=== PATIENT | male | born 1960 | race Caucasian/White ===

== ENCOUNTER 2020-01-28 16:04 | Emergency (ER) | payer MEDICAID, SELFPAY ==
[2020-01-28 16:23] VITALS: BP 114/72; BP 120/88; PULSE 109; PULSE 130; RESP 23; TEMP 36.9; O2SAT 93; O2SAT 97; BMI 25.4
--- NOTE | 2020-01-28 16:37 | ED.AMS ---
HPI - Altered Mental Status General Chief Complaint: Overdose Stated Complaint: od Time Seen by Provider: 01/28/20 16:32 Source: patient and EMS Mode of arrival: EMS Limitations: altered mental status History of Present Illness HPI narrative: Patient's history of substance abuse uses heroin and cocaine was found on the side of the road with empty bottles Suboxone pinpoint pupil easily arousable with blue lips no Narcan was given was saturating 97% on 2 L POC was 153 respiratory rate was 14 to 16 heart rate was 130s after arrival in the ER patient was anxious moving his body is all over Related Data Allergies Allergy/AdvReac Type Severity Reaction Status Date / Time No Known Allergies Allergy Mild NO REACTION Unverified 11/01/19 16:50 Review of Systems Review of Systems: Yes Unobtainable due to mental status PMFSH Social History Social History Advance Directives: No Advance Directives Information Provided: No Physical Exam Vital Signs: Vital Signs: Last Vital Signs Temp 98 F 01/29/20 00:02 Pulse 94 01/29/20 00:02 Resp 18 01/29/20 00:02 BP 119/85 01/29/20 00:02 Pulse Ox 97 01/29/20 00:02 Body Mass Index 25.4 Appearance: Alert. Anxious moving his body all over No acute distress. Eyes: Pupils equal, round and reactive to light. ENT: Pharynx normal. Pupils 2 mm reacting to light no signs of head injury Neck: Normal inspection. Neck supple. CVS: Normal heart rate and rhythm. Pulses normal. Respiratory: No respiratory distress. Breath sounds normal. Abdomen: Soft and nontender. Skin: Skin warm and dry. Normal skin color. Normal skin turgor. Extremities: No lower extremity edema. Good range of movement Neuro: Alert, No motor deficit. No sensory deficit. MDM - Altered Mental Status MDM Narrative Medical decision making narrative: Patient's history of cocaine abuse came agitated also taking Suboxone improved after Ativan IM at this time patient is alert awake resting with stable vitals denied any chest pain denies any other substance abuse will check the urine keep him till am Differential Diagnosis Differential diagnosis: Likely overdose polysubstance Discharge Plan Discharge Clinical Impression: Cocaine intoxication Qualifiers: Complication of substance-induced condition: uncomplicated Qualified Code(s): F14.920 - Cocaine use, unspecified with intoxication, uncomplicated Patient Disposition: Home, Self-Care Instructions: Cocaine Abuse (ED) Additional Instructions: Stop using cocaine and follow up with detox
[2020-01-28] MEDS: LORazepam 2 MG/ML VIAL IM ×2 (16:46→21:01)
[2020-01-28] MEDS: diphenhydrAMINE HCL 50 MG/ML VIAL IM (17:49)
--- NOTE | 2020-01-28 18:51 | PC.NURSE ---
benadryl never given. patient asleep.
--- NOTE | 2020-01-28 19:39 | PC.NURSE ---
GAVE PATIENT A SANDWICH AND ORANGE JUICE.
[2020-01-29 00:02] VITALS: BP 119/85; PULSE 94; RESP 18; TEMP 36.6; O2SAT 97
[2020-01-29 02:55] LABS: Amphetamine Screen Urine Not Detected (Not Detect); Barbiturates, Urine Not Detected (Not Detect); Benzodiazepines Screen Urine Not Detected (Not Detect); Cannabinoid Screen Urine Not Detected (Not Detect); Cocaine Screen Urine POSITIVE (Not Detect); Opiate Screen Urine POSITIVE (Not Detect); Phencyclidine Screen Urine Not Detected (Not Detect)
== END 2020-01-29 03:19 | disposition home or self-care (01) ==
PROVIDERS: Emergency Provider Internal Medicine
DX: F14.120 Cocaine abuse with intoxication, uncomplicated (principal); F11.20 Opioid dependence, uncomplicated; Z21 Asymptomatic human immunodeficiency virus [HIV] infection status
CPT/HCPCS: 80307; 96372; 99284; J1200; J2060

== ENCOUNTER 2020-01-29 08:35 | Emergency (ER) | payer MEDICAID, SELFPAY ==
--- NOTE | 2020-01-29 08:48 | ECG_ITS ---
Test Reason : ETOH Blood Pressure : / mmHG Vent. Rate : 087 BPM Atrial Rate : 087 BPM P-R Int : 198 ms QRS Dur : 096 ms QT Int : 386 ms P-R-T Axes : 054 072 050 degrees QTc Int : 464 ms Normal sinus rhythm Normal ECG When compared with ECG of 14-SEP-2019 09:09, No significant change was found Referred By: Anitha Pringle Electronically Signed By:Sudheer Lyon
[2020-01-29 08:51] VITALS: BP 125/52; PULSE 84; PULSE 94; RESP 22; TEMP 36.4; O2SAT 93; O2SAT 94; BMI 24.1
[2020-01-29] MEDS: LORazepam 2 MG/ML VIAL IM (08:57)
[2020-01-29 09:18] LABS: MANUAL DIFF FLAG NO
[2020-01-29 09:30] LABS: Basophils Percent Auto 0.4 % (0-2); Eosinophils Absolute Auto 0.1 X10*3/uL (0.0-0.4); Eosinophils Percent Auto 0.5 % (0-4); Hematocrit 43.5 % (42-52); Hemoglobin 14.9 g/dl (14.0-18.0); Imm Gran Abs Auto 0.04 X10*3/uL (0.00-0.03); Imm Gran Pct Auto 0.4 % (0.0-0.4); Lymphocytes Absolute Auto 0.7 X10*3/uL (1.2-4.9); Lymphocytes Percent Auto 7.1 % (20-40); Mean Corpuscular HGB Conc 34.3 g/dl (31.0-36.0); Mean Corpuscular Hemoglobin 30.8 pg (27.0-33.0); Mean Corpuscular Volume 89.9 fL (80-98); Mean Platelet Volume 12.3 fL (9.4-12.4); Monocytes Absolute Auto 1.2 X10*3/uL (0.1-1.2); Monocytes Percent Auto 12.2 % (2-11); Neutrophils Percent Auto 79.4 % (45-73); Platelet Count 126 X10*3/uL (160-400); Red Blood Count 4.84 X10*6/uL (4.60-5.80); Red Cell Distribution Width 15.7 % (11.0-16.0); White Blood Count 10.1 X10*3/uL (4.8-10.8)
[2020-01-29] MEDS: 0.9 % Sodium Chloride 1,000 ML 999 ML IVCONT ×2 (09:49→10:17)
[2020-01-29 09:50] VITALS: BP 109/60; PULSE 91; RESP 15; O2SAT 98
[2020-01-29 09:50] LABS: Ethanol < 10 mg/dL
[2020-01-29] MEDS: Haloperidol Lactate 5 MG/ML VIAL IVPUSH (09:50)
[2020-01-29 09:51] LABS: Alanine Aminotransferase 22 U/L (0-40); Albumin Level 4.3 g/dL (3.5-5.0); Alkaline Phosphatase 106 U/L (39-117); Anion Gap 16 (12-20); Aspartate Amino Transferase 55 U/L (5-37); Bilirubin Direct 0.2 mg/dL (0.0-0.5); Bilirubin Total 0.5 mg/dL (0.0-1.0); Blood Urea Nitrogen 30 mg/dL (9-16); Calcium 8.9 mg/dL (8.4-10.2); Carbon Dioxide 25 mmol/L (22-29); Chloride 102 mmol/L (96-108); Creatinine Clr Calc Pharmacy 55.1; Estimated Glomerular Filt Rate 59; Glucose Random 69 mg/dL (60-115); Magnesium 2.4 mg/dL (1.6-2.6); Potassium 4.6 mmol/l (3.3-5.1); Sodium 138 mmol/L (135-145); Total Protein 8.2 g/dL (6.5-8.0)
--- NOTE | 2020-01-29 09:55 | ED_ITS ---
HPI - Psych General Chief Complaint: ETOH/Substance Use <LOVELY Goel - Last Filed: 01/29/20 13:48> Stated Complaint: ETOH <LOVELY Goel - Last Filed: 01/29/20 13:48> Time Seen by Provider: 01/29/20 08:46 <LOVELY Goel Last Filed: 01/29/20 13:48> Source: patient and EMS <LOVELY Goel Last Filed: 01/29/20 13:48> Mode of arrival: EMS <LOVELY Goel Last Filed: 01/29/20 13:48> Limitations: other (Poor historian) <LOVELY Goel Last Filed: 01/29/20 13:48> History of Present Illness HPI Narrative: 59yoM c PMHx of HIV/AIDS, Hepatitis C, IV drug usage c cocaine/heroin/opioids currently on Suboxone, schizoaffective disorder, depression, and asthma presenting to the ED via EMS c c/o of unable to stay still after being discharged overnight. 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 Denies any fevers, dizziness, changes in vision, nausea, vomiting, chest pain, shortness of breath, cough, sore throat, abdominal pain, back pain, dysuria, hematuria, constipation or diarrhea or any other symptoms complaints or concerns at this time. <LOVELY Goel Last Filed: 01/29/20 13:48> Related Data Allergies/Adverse Reactions: Allergies Allergy/AdvReac Type Severity Reaction Status Date / Time No Known Allergies Allergy Mild NO REACTION Unverified 11/01/19 16:50 <LOVELY Goel Last Filed: 01/29/20 13:48> Review of Systems Review of Systems: Constitutional : No Fever, No Chills ENT/Mouth : No Ear Pain, No Nasal Congestion, No sore throat Eyes: No Eye Pain, No Swelling, No Redness Cardiovascular : No Chest Pain, No SOB Respiratory : No Cough, No Sputum, No Dyspnea Gastrointestinal : No ingestions, No Nausea, No Vomiting, No Diarrhea, No Hematochezia, No Melena Genitourinary : No Dysuria, No Urinary Frequency, No Hematuria Musculoskeletal : No Myalgias Skin : No Skin Lesions, No rash Neuro : No Weakness, No Numbness, No Paresthesias, No Dizziness, No Headache Psych : + Anxiety, No Depression, No SI, No No thoughts of self injury, No HI, No AVH, Heme/Lymph: No Lymphadenopathy Endocrine : No Polyuria, No Polydipsia <LOVELY Goel - Last Filed: 01/29/20 13:48> Yes all other systems are reviewed and are negative <LOVELY Goel - Last Filed: 01/29/20 13:48> [facility] Past Medical History Attestation statement: The following information was validated with the patient. <LOVELY Goel - Last Filed: 01/29/20 13:48> Social History Social History: Social History Smoking Status: Current every day smoker Use of substances other than those prescribed or required for medical reasons: Yes Substance Use Type: Crack/Cocaine, Heroin and Marijuana Advance Directives: No Advance Directives Information Provided: No <LOVELY Goel - Last Filed: 01/29/20 13:48> Physical Exam Vital Signs: Vital Signs: Last Vital Signs Temp 97.6 F 01/29/20 12:00 Pulse 89 01/29/20 12:00 Resp 15 01/29/20 12:00 BP 121/79 01/29/20 12:00 Pulse Ox 92 01/29/20 12:00 Body Mass Index 24.1 vital signs have been reviewed as normal and appeared to be correct. Blood pressure normal. Heart tachycardic. Respiration rate tachypneic. Temperature normal. Oxygen saturation normal. <LOVELY Goel - Last Filed: 01/29/20 13:48> Vital Signs: Last Vital Signs Temp 97.6 F 01/29/20 12:00 Pulse 89 01/29/20 12:00 Resp 15 01/29/20 12:00 BP 121/79 01/29/20 12:00 Pulse Ox 92 01/29/20 12:00 Body Mass Index 24.1 <Guido Robins MD - Last Filed: 02/10/20 09:14> Appearance: Alert. Oriented X3. No acute distress. Head: Normal external exam. Normocephalic. Atraumatic. No Fernandez signs noted. No raccoon eyes noted Eyes: PERRLA. EOMI. Conjunctiva and sclera normal. Eyelids normal. ENT: EAC normal. TM's Normal. Pharynx normal. Uvula midline. Moist mucous membranes. No trismus noted. No drooling noted. No muffled voice noted. Neck: Normal inspection. Neck supple. FROM. No adenopathy. No meningeal signs. CVS: Normal heart rate and rhythm. Heart sound normal. No murmurs noted. Pulses normal throughout. Respiratory: No respiratory distress. Painless inspiration. Breath sounds normal. No wheezes/rales/rhonchi noted. Chest nontender. No accessory muscle usage noted or decreased air movement noted. Abdomen: Soft and nontender. Bowel sounds normal in all 4 quadrants. No distention noted. No organomegaly noted. No visible injury noted. Back: No CVA tenderness. Full range of motion noted. Skin: Skin warm and dry. Normal skin color. Normal skin turgor. No rashes/lesions/lacerations noted. Extremities: No lower extremity edema. Extremities exhibit normal range of motion. Extremities nontender. Neuro: Oriented X 3. No motor deficit. No sensory deficit. Reflexes normal. Psych: Appearance grossly normal, well-kept, mental status normal, speech and movement normal, speech clear, patient appears very anxious and restless. Although Is cooperative. Does not have Normal thought process. Does not have Normal thought content. Does not have good insight. Judgment is poor. <LOVELY Goel - Last Filed: 01/29/20 13:48> Course Course Course Narrative: 8:50am - 59yoM c PMHx of HIV/AIDS, Hepatitis C, IV drug usage c cocaine/heroin/opioids currently on Suboxone, schizoaffective disorder, depression, and asthma presenting to the ED via EMS c c/o of unable to stay still after being discharged overnight. 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 - on exam patient is very restless and anxious otherwise in no acute distress. He is tachycardic and tachypneic although this is not sepsis this is acute withdrawal. - Plan: Labs, EKG, UA. Provide IVF's, 2 mg of ativan then re-evaluate. No BHN consult indicated at this time as patient denies any SI/HI/auditory visual hallucinations or thoughts of self-injury. And is already on Suboxone. <LOVELY Goel - Last Filed: 01/29/20 13:48> I have reviewed the chart <Guido Robins MD - Last Filed: 02/10/20 09:14> Reevaluation(s) Reevaluation #1: - platelet count 126. BUN 30. CPK 1671. Otherwise all other labs are within normal limits. Patient is positive for opioids and cocaine negative for any EtOH. Negative for RSV/flu/COVID. EKG is normal sinus rhythm no acute ischemic changes noted. - patient had to be medicated with 5 mg of Haldol and 50 mg of Benadryl due to restlessness/anxiety. Patient also given another L of IV fluids will then recheck the patient's CPK. Will continue to monitor at this time. <LOVELY Goel - Last Filed: 01/29/20 13:48> Time: 11:26 <LOVELY Goel - Last Filed: 01/29/20 13:48> Reevaluation #2: Repeat CPK trending now at this time. Patient is tolerating p.o. fluids and is eating a meal. Denies any additional complaints or concerns at this time. Is sober. Denies any SI/HI/auditory visual hallucinations thoughts of self-injury. Not interested in detox as patient is already on Suboxone. I instructed patient to not do any drugs and then take his Suboxone due to he throws himself in to withdrawal. Patient understands this and agrees with the p roxanne. Intructured him to follow up with primary care provider and to return if any new or worsening symptoms. Patient understands agrees the plan. <LOVELY Goel - Last Filed: 01/29/20 13:48> Time: 13:46 <LOVELY Goel - Last Filed: 01/29/20 13:48> MDM - Psych Restraints Face to Face Assessment: Face to Face Assessment: Current Situation: After assessment of the patient, a review of the pertinent medical record and a discussion with nursing staff, I feel the patient requires a restrain intervention. Reaction To: [] Medical Condition: [] Behavioral State: [] Continued Need: [] <LOVELY Goel - Last Filed: 01/29/20 13:48> Medical Records Attestation: I reviewed the patient's medical records. <LOVELY Goel - Last Filed: 01/29/20 13:48> Lab Data Attestation: I reviewed the patient's lab results. <LOVELY Goel - Last Filed: 01/29/20 13:48> Result diagrams: : 01/29/20 09:15 01/29/20 09:15 <LOVELY Goel - Last Filed: 01/29/20 13:48> Labs: Lab Results 01/29/20 01/29/20 01/29/20 Range/Units 09:15 09:15 09:15 WBC 10.1 (4.8-10.8) X10*3/uL RBC 4.84 (4.60-5.80) X10*6/uL Hgb 14.9 (14.0-18.0) g/dl Hct 43.5 (42-52) % MCV 89.9 (80-98) fL MCH 30.8 (27.0-33.0) pg MCHC 34.3 (31.0-36.0) g/dl RDW 15.7 (11.0-16.0) % Plt Count 126 L (160-400) X10*3/uL MPV 12.3 (9.4-12.4) fL Immature Gran % (Auto) 0.4 (0.0-0.4) % Neut % (Auto) 79.4 H (45-73) % Lymph % (Auto) 7.1 L (20-40) % [place] % (Auto) 12.2 H (2-11) % Eos % (Auto) 0.5 (0-4) % Baso % (Auto) 0.4 (0-2) % Lymph # (Auto) 0.7 L (1.2-4.9) X10*3/uL [place] # (Auto) 1.2 (0.1-1.2) X10*3/uL Eos # (Auto) 0.1 (0.0-0.4) X10*3/uL Baso # (Auto) 0.0 (0.0-0.2) X10*3/uL Abs Immat Gran (auto) 0.04 H (0.00-0.03) X10*3/uL Absolute Neuts (auto) 8.0 (2.0-8.3) X10*3/uL Absolute Nucleated RBC 0.000 (0.0-0.012) X10*3/uL Nucleated RBC % (auto) 0.0 (0.0-0.2) /100WBC Hold Purple Top SEE NOTE Sodium 138 (135-145) mmol/L Potassium 4.6 (3.3-5.1) mmol/l Chloride 102 (96-108) mmol/L Carbon Dioxide 25 (22-29) mmol/L Anion Gap 16 (12-20) BUN 30 H (9-16) mg/dL Creatinine 1.24 (0.5-1.4) mg/dL Estim Creat Clear Calc 55.1 Estimated GFR 59 Random Glucose 69 (60-115) mg/dL Calcium 8.9 (8.4-10.2) mg/dL Magnesium (1.6-2.6) mg/dL Total Bilirubin (0.0-1.0) mg/dL Direct Bilirubin (0.0-0.5) mg/dL AST (5-37) U/L ALT (0-40) U/L Alkaline Phosphatase (39-117) U/L Total Creatine Kinase (38-174) U/L Total Protein (6.5-8.0) g/dL Albumin (3.5-5.0) g/dL Urine Color Urine Appearance Urine pH (5.0-8.0) Ur Specific [place] (1.005-1.025) Urine Protein (NEG-TRACE) MG/DL Urine Glucose (UA) (NEG) MG/DL Urine Ketones (NEG) MG/DL Urine Blood (NEG) Urine Nitrite (NEG) Ur Leukocyte Esterase (NEG) Urine Opiates Screen (Not Detect) Ur Barbiturates Screen (Not Detect) Ur Phencyclidine Scrn (Not Detect) Ur Amphetamines Screen (Not Detect) U Benzodiazepines Scrn (Not Detect) Urine Cocaine Screen (Not Detect) U Marijuana (THC) Screen (Not Detect) Ethyl Alcohol mg/dL Coronavirus (PCR) (Negative) Influenza Type A (PCR) (Negative) Influenza Type B (PCR) (Negative) RSV RNA Qual (PCR) (Negative) 01/29/20 01/29/20 01/29/20 Range/Units 09:15 09:15 09:15 WBC (4.8-10.8) X10*3/uL RBC (4.60-5.80) X10*6/uL Hgb (14.0-18.0) g/dl Hct (42-52) % MCV (80-98) fL MCH (27.0-33.0) pg MCHC (31.0-36.0) g/dl RDW (11.0-16.0) % Plt Count (160-400) X10*3/uL MPV (9.4-12.4) fL Immature Gran % (Auto) (0.0-0.4) % Neut % (Auto) (45-73) % Lymph % (Auto) (20-40) % [place] % (Auto) (2-11) % Eos % (Auto) (0-4) % Baso % (Auto) (0-2) % Lymph # (Auto) (1.2-4.9) X10*3/uL [place] # (Auto) (0.1-1.2) X10*3/uL Eos # (Auto) (0.0-0.4) X10*3/uL Baso # (Auto) (0.0-0.2) X10*3/uL Abs Immat Gran (auto) (0.00-0.03) X10*3/uL Absolute Neuts (auto) (2.0-8.3) X10*3/uL Absolute Nucleated RBC (0.0-0.012) X10*3/uL Nucleated RBC % (auto) (0.0-0.2) /100WBC Hold Purple Top Sodium (135-145) mmol/L Potassium (3.3-5.1) mmol/l Chloride (96-108) mmol/L Carbon Dioxide (22-29) mmol/L Anion Gap (12-20) BUN (9-16) mg/dL Creatinine (0.5-1.4) mg/dL Estim Creat Clear Calc Estimated GFR Random Glucose (60-115) mg/dL Calcium (8.4-10.2) mg/dL Magnesium 2.4 (1.6-2.6) mg/dL Total Bilirubin 0.5 (0.0-1.0) mg/dL Direct Bilirubin 0.2 (0.0-0.5) mg/dL AST 55 H (5-37) U/L ALT 22 (0-40) U/L Alkaline Phosphatase 106 (39-117) U/L Total Creatine Kinase (38-174) U/L Total Protein 8.2 H (6.5-8.0) g/dL Albumin 4.3 (3.5-5.0) g/dL Urine Color Urine Appearance Urine pH (5.0-8.0) Ur Specific [place] (1.005-1.025) Urine Protein (NEG-TRACE) MG/DL Urine Glucose (UA) (NEG) MG/DL Urine Ketones (NEG) MG/DL Urine Blood (NEG) Urine Nitrite (NEG) Ur Leukocyte Esterase (NEG) Urine Opiates Screen (Not Detect) Ur Barbiturates Screen (Not Detect) Ur Phencyclidine Scrn (Not Detect) Ur Amphetamines Screen (Not Detect) U Benzodiazepines Scrn (Not Detect) Urine Cocaine Screen (Not Detect) U Marijuana (THC) Screen (Not Detect) Ethyl Alcohol < 10 mg/dL Coronavirus (PCR) NEGATIVE (Negative) Influenza Type A (PCR) NEGATIVE (Negative) Influenza Type B (PCR) NEGATIVE (Negative) RSV RNA Qual (PCR) NEGATIVE (Negative) 01/29/20 01/29/20 01/29/20 Range/Units 09:15 13:01 13:01 WBC (4.8-10.8) X10*3/uL RBC (4.60-5.80) X10*6/uL Hgb (14.0-18.0) g/dl Hct (42-52) % MCV (80-98) fL MCH (27.0-33.0) pg MCHC (31.0-36.0) g/dl RDW (11.0-16.0) % Plt Count (160-400) X10*3/uL MPV (9.4-12.4) fL Immature Gran % (Auto) (0.0-0.4) % Neut % (Auto) (45-73) % Lymph % (Auto) (20-40) % [place] % (Auto) (2-11) % Eos % (Auto) (0-4) % Baso % (Auto) (0-2) % Lymph # (Auto) (1.2-4.9) X10*3/uL [place] # (Auto) (0.1-1.2) X10*3/uL Eos # (Auto) (0.0-0.4) X10*3/uL Baso # (Auto) (0.0-0.2) X10*3/uL Abs Immat Gran (auto) (0.00-0.03) X10*3/uL Absolute Neuts (auto) (2.0-8.3) X10*3/uL Absolute Nucleated RBC (0.0-0.012) X10*3/uL Nucleated RBC % (auto) (0.0-0.2) /100WBC Hold Purple Top Sodium (135-145) mmol/L Potassium (3.3-5.1) mmol/l Chloride (96-108) mmol/L Carbon Dioxide (22-29) mmol/L Anion Gap (12-20) BUN (9-16) mg/dL Creatinine (0.5-1.4) mg/dL Estim Creat Clear Calc Estimated GFR Random Glucose (60-115) mg/dL Calcium (8.4-10.2) mg/dL Magnesium (1.6-2.6) mg/dL Total Bilirubin (0.0-1.0) mg/dL Direct Bilirubin (0.0-0.5) mg/dL AST (5-37) U/L ALT (0-40) U/L Alkaline Phosphatase (39-117) U/L Total Creatine Kinase 1671 H (38-174) U/L Total Protein (6.5-8.0) g/dL Albumin (3.5-5.0) g/dL Urine Color YELLOW Urine Appearance CLEAR Urine pH 6.0 (5.0-8.0) Ur Specific [place] >= 1.030 H (1.005-1.025) Urine Protein NEG (NEG-TRACE) MG/DL Urine Glucose (UA) NEG (NEG) MG/DL Urine Ketones 5 (NEG) MG/DL Urine Blood NEG (NEG) Urine Nitrite NEG (NEG) Ur Leukocyte Esterase NEG (NEG) Urine Opiates Screen POSITIVE H (Not Detect) Ur Barbiturates Screen Not Detected (Not Detect) Ur Phencyclidine Scrn Not Detected (Not Detect) Ur Amphetamines Screen Not Detected (Not Detect) U Benzodiazepines Scrn Not Detected (Not Detect) Urine Cocaine Screen POSITIVE H (Not Detect) U Marijuana (THC) Screen Not Detected (Not Detect) Ethyl Alcohol mg/dL Coronavirus (PCR) (Negative) Influenza Type A (PCR) (Negative) Influenza Type B (PCR) (Negative) RSV RNA Qual (PCR) (Negative) 01/29/20 Range/Units 13:05 WBC (4.8-10.8) X10*3/uL RBC (4.60-5.80) X10*6/uL Hgb (14.0-18.0) g/dl Hct (42-52) % MCV (80-98) fL MCH (27.0-33.0) pg MCHC (31.0-36.0) g/dl RDW (11.0-16.0) % Plt Count (160-400) X10*3/uL MPV (9.4-12.4) fL Immature Gran % (Auto) (0.0-0.4) % Neut % (Auto) (45-73) % Lymph % (Auto) (20-40) % [place] % (Auto) (2-11) % Eos % (Auto) (0-4) % Baso % (Auto) (0-2) % Lymph # (Auto) (1.2-4.9) X10*3/uL [place] # (Auto) (0.1-1.2) X10*3/uL Eos # (Auto) (0.0-0.4) X10*3/uL Baso # (Auto) (0.0-0.2) X10*3/uL Abs Immat Gran (auto) (0.00-0.03) X10*3/uL Absolute Neuts (auto) (2.0-8.3) X10*3/uL Absolute Nucleated RBC (0.0-0.012) X10*3/uL Nucleated RBC % (auto) (0.0-0.2) /100WBC Hold Purple Top Sodium (135-145) mmol/L Potassium (3.3-5.1) mmol/l Chloride (96-108) mmol/L Carbon Dioxide (22-29) mmol/L Anion Gap (12-20) BUN (9-16) mg/dL Creatinine (0.5-1.4) mg/dL Estim Creat Clear Calc Estimated GFR Random Glucose (60-115) mg/dL Calcium (8.4-10.2) mg/dL Magnesium (1.6-2.6) mg/dL Total Bilirubin (0.0-1.0) mg/dL Direct Bilirubin (0.0-0.5) mg/dL AST (5-37) U/L ALT (0-40) U/L Alkaline Phosphatase (39-117) U/L Total Creatine Kinase 1582 H (38-174) U/L Total Protein (6.5-8.0) g/dL Albumin (3.5-5.0) g/dL Urine Color Urine Appearance Urine pH (5.0-8.0) Ur Specific [place] (1.005-1.025) Urine Protein (NEG-TRACE) MG/DL Urine Glucose (UA) (NEG) MG/DL Urine Ketones (NEG) MG/DL Urine Blood (NEG) Urine Nitrite (NEG) Ur Leukocyte Esterase (NEG) Urine Opiates Screen (Not Detect) Ur Barbiturates Screen (Not Detect) Ur Phencyclidine Scrn (Not Detect) Ur Amphetamines Screen (Not Detect) U Benzodiazepines Scrn (Not Detect) Urine Cocaine Screen (Not Detect) U Marijuana (THC) Screen (Not Detect) Ethyl Alcohol mg/dL Coronavirus (PCR) (Negative) Influenza Type A (PCR) (Negative) Influenza Type B (PCR) (Negative) RSV RNA Qual (PCR) (Negative) <LOVELY Goel - Last Filed: 01/29/20 13:48> Lab Results 01/29/20 01/29/20 01/29/20 Range/Units 09:15 09:15 09:15 WBC 10.1 (4.8-10.8) X10*3/uL RBC 4.84 (4.60-5.80) X10*6/uL Hgb 14.9 (14.0-18.0) g/dl Hct 43.5 (42-52) % MCV 89.9 (80-98) fL MCH 30.8 (27.0-33.0) pg MCHC 34.3 (31.0-36.0) g/dl RDW 15.7 (11.0-16.0) % Plt Count 126 L (160-400) X10*3/uL MPV 12.3 (9.4-12.4) fL Immature Gran % (Auto) 0.4 (0.0-0.4) % Neut % (Auto) 79.4 H (45-73) % Lymph % (Auto) 7.1 L (20-40) % [place] % (Auto) 12.2 H (2-11) % Eos % (Auto) 0.5 (0-4) % Baso % (Auto) 0.4 (0-2) % Lymph # (Auto) 0.7 L (1.2-4.9) X10*3/uL [place] # (Auto) 1.2 (0.1-1.2) X10*3/uL Eos # (Auto) 0.1 (0.0-0.4) X10*3/uL Baso # (Auto) 0.0 (0.0-0.2) X10*3/uL Abs Immat Gran (auto) 0.04 H (0.00-0.03) X10*3/uL Absolute Neuts (auto) 8.0 (2.0-8.3) X10*3/uL Absolute Nucleated RBC 0.000 (0.0-0.012) X10*3/uL Nucleated RBC % (auto) 0.0 (0.0-0.2) /100WBC Hold Purple Top SEE NOTE Sodium 138 (135-145) mmol/L Potassium 4.6 (3.3-5.1) mmol/l Chloride 102 (96-108) mmol/L Carbon Dioxide 25 (22-29) mmol/L Anion Gap 16 (12-20) BUN 30 H (9-16) mg/dL Creatinine 1.24 (0.5-1.4) mg/dL Estim Creat Clear Calc 55.1 Estimated GFR 59 Random Glucose 69 (60-115) mg/dL Calcium 8.9 (8.4-10.2) mg/dL Magnesium (1.6-2.6) mg/dL Total Bilirubin (0.0-1.0) mg/dL Direct Bilirubin (0.0-0.5) mg/dL AST (5-37) U/L ALT (0-40) U/L Alkaline Phosphatase (39-117) U/L Total Creatine Kinase (38-174) U/L Total Protein (6.5-8.0) g/dL Albumin (3.5-5.0) g/dL Urine Color Urine Appearance Urine pH (5.0-8.0) Ur Specific [place] (1.005-1.025) Urine Protein (NEG-TRACE) MG/DL Urine Glucose (UA) (NEG) MG/DL Urine Ketones (NEG) MG/DL Urine Blood (NEG) Urine Nitrite (NEG) Ur Leukocyte Esterase (NEG) Urine Opiates Screen (Not Detect) Ur Barbiturates Screen (Not Detect) Ur Phencyclidine Scrn (Not Detect) Ur Amphetamines Screen (Not Detect) U Benzodiazepines Scrn (Not Detect) Urine Cocaine Screen (Not Detect) U Marijuana (THC) Screen (Not Detect) Ethyl Alcohol mg/dL Coronavirus (PCR) (Negative) Influenza Type A (PCR) (Negative) Influenza Type B (PCR) (Negative) RSV RNA Qual (PCR) (Negative) 01/29/20 01/29/20 01/29/20 Range/Units 09:15 09:15 09:15 WBC (4.8-10.8) X10*3/uL RBC (4.60-5.80) X10*6/uL Hgb (14.0-18.0) g/dl Hct (42-52) % MCV (80-98) fL MCH (27.0-33.0) pg MCHC (31.0-36.0) g/dl RDW (11.0-16.0) % Plt Count (160-400) X10*3/uL MPV (9.4-12.4) fL Immature Gran % (Auto) (0.0-0.4) % Neut % (Auto) (45-73) % Lymph % (Auto) (20-40) % [place] % (Auto) (2-11) % Eos % (Auto) (0-4) % Baso % (Auto) (0-2) % Lymph # (Auto) (1.2-4.9) X10*3/uL [place] # (Auto) (0.1-1.2) X10*3/uL Eos # (Auto) (0.0-0.4) X10*3/uL Baso # (Auto) (0.0-0.2) X10*3/uL Abs Immat Gran (auto) (0.00-0.03) X10*3/uL Absolute Neuts (auto) (2.0-8.3) X10*3/uL Absolute Nucleated RBC (0.0-0.012) X10*3/uL Nucleated RBC % (auto) (0.0-0.2) /100WBC Hold Purple Top Sodium (135-145) mmol/L Potassium (3.3-5.1) mmol/l Chloride (96-108) mmol/L Carbon Dioxide (22-29) mmol/L Anion Gap (12-20) BUN (9-16) mg/dL Creatinine (0.5-1.4) mg/dL Estim Creat Clear Calc Estimated GFR Random Glucose (60-115) mg/dL Calcium (8.4-10.2) mg/dL Magnesium 2.4 (1.6-2.6) mg/dL Total Bilirubin 0.5 (0.0-1.0) mg/dL Direct Bilirubin 0.2 (0.0-0.5) mg/dL AST 55 H (5-37) U/L ALT 22 (0-40) U/L Alkaline Phosphatase 106 (39-117) U/L Total Creatine Kinase (38-174) U/L Total Protein 8.2 H (6.5-8.0) g/dL Albumin 4.3 (3.5-5.0) g/dL Urine Color Urine Appearance Urine pH (5.0-8.0) Ur Specific [place] (1.005-1.025) Urine Protein (NEG-TRACE) MG/DL Urine Glucose (UA) (NEG) MG/DL Urine Ketones (NEG) MG/DL Urine Blood (NEG) Urine Nitrite (NEG) Ur Leukocyte Esterase (NEG) Urine Opiates Screen (Not Detect) Ur Barbiturates Screen (Not Detect) Ur Phencyclidine Scrn (Not Detect) Ur Amphetamines Screen (Not Detect) U Benzodiazepines Scrn (Not Detect) Urine Cocaine Screen (Not Detect) U Marijuana (THC) Screen (Not Detect) Ethyl Alcohol < 10 mg/dL Coronavirus (PCR) NEGATIVE (Negative) Influenza Type A (PCR) NEGATIVE (Negative) Influenza Type B (PCR) NEGATIVE (Negative) RSV RNA Qual (PCR) NEGATIVE (Negative) 01/29/20 01/29/20 01/29/20 Range/Units 09:15 13:01 13:01 WBC (4.8-10.8) X10*3/uL RBC (4.60-5.80) X10*6/uL Hgb (14.0-18.0) g/dl Hct (42-52) % MCV (80-98) fL MCH (27.0-33.0) pg MCHC (31.0-36.0) g/dl RDW (11.0-16.0) % Plt Count (160-400) X10*3/uL MPV (9.4-12.4) fL Immature Gran % (Auto) (0.0-0.4) % Neut % (Auto) (45-73) % Lymph % (Auto) (20-40) % [place] % (Auto) (2-11) % Eos % (Auto) (0-4) % Baso % (Auto) (0-2) % Lymph # (Auto) (1.2-4.9) X10*3/uL [place] # (Auto) (0.1-1.2) X10*3/uL Eos # (Auto) (0.0-0.4) X10*3/uL Baso # (Auto) (0.0-0.2) X10*3/uL Abs Immat Gran (auto) (0.00-0.03) X10*3/uL Absolute Neuts (auto) (2.0-8.3) X10*3/uL Absolute Nucleated RBC (0.0-0.012) X10*3/uL Nucleated RBC % (auto) (0.0-0.2) /100WBC Hold Purple Top Sodium (135-145) mmol/L Potassium (3.3-5.1) mmol/l Chloride (96-108) mmol/L Carbon Dioxide (22-29) mmol/L Anion Gap (12-20) BUN (9-16) mg/dL Creatinine (0.5-1.4) mg/dL Estim Creat Clear Calc Estimated GFR Random Glucose (60-115) mg/dL Calcium (8.4-10.2) mg/dL Magnesium (1.6-2.6) mg/dL Total Bilirubin (0.0-1.0) mg/dL Direct Bilirubin (0.0-0.5) mg/dL AST (5-37) U/L ALT (0-40) U/L Alkaline Phosphatase (39-117) U/L Total Creatine Kinase 1671 H (38-174) U/L Total Protein (6.5-8.0) g/dL Albumin (3.5-5.0) g/dL Urine Color YELLOW Urine Appearance CLEAR Urine pH 6.0 (5.0-8.0) Ur Specific [place] >= 1.030 H (1.005-1.025) Urine Protein NEG (NEG-TRACE) MG/DL Urine Glucose (UA) NEG (NEG) MG/DL Urine Ketones 5 (NEG) MG/DL Urine Blood NEG (NEG) Urine Nitrite NEG (NEG) Ur Leukocyte Esterase NEG (NEG) Urine Opiates Screen POSITIVE H (Not Detect) Ur Barbiturates Screen Not Detected (Not Detect) Ur Phencyclidine Scrn Not Detected (Not Detect) Ur Amphetamines Screen Not Detected (Not Detect) U Benzodiazepines Scrn Not Detected (Not Detect) Urine Cocaine Screen POSITIVE H (Not Detect) U Marijuana (THC) Screen Not Detected (Not Detect) Ethyl Alcohol mg/dL Coronavirus (PCR) (Negative) Influenza Type A (PCR) (Negative) Influenza Type B (PCR) (Negative) RSV RNA Qual (PCR) (Negative) 01/29/20 Range/Units 13:05 WBC (4.8-10.8) X10*3/uL RBC (4.60-5.80) X10*6/uL Hgb (14.0-18.0) g/dl Hct (42-52) % MCV (80-98) fL MCH (27.0-33.0) pg MCHC (31.0-36.0) g/dl RDW (11.0-16.0) % Plt Count (160-400) X10*3/uL MPV (9.4-12.4) fL Immature Gran % (Auto) (0.0-0.4) % Neut % (Auto) (45-73) % Lymph % (Auto) (20-40) % [place] % (Auto) (2-11) % Eos % (Auto) (0-4) % Baso % (Auto) (0-2) % Lymph # (Auto) (1.2-4.9) X10*3/uL [place] # (Auto) (0.1-1.2) X10*3/uL Eos # (Auto) (0.0-0.4) X10*3/uL Baso # (Auto) (0.0-0.2) X10*3/uL Abs Immat Gran (auto) (0.00-0.03) X10*3/uL Absolute Neuts (auto) (2.0-8.3) X10*3/uL Absolute Nucleated RBC (0.0-0.012) X10*3/uL Nucleated RBC % (auto) (0.0-0.2) /100WBC Hold Purple Top Sodium (135-145) mmol/L Potassium (3.3-5.1) mmol/l Chloride (96-108) mmol/L Carbon Dioxide (22-29) mmol/L Anion Gap (12-20) BUN (9-16) mg/dL Creatinine (0.5-1.4) mg/dL Estim Creat Clear Calc Estimated GFR Random Glucose (60-115) mg/dL Calcium (8.4-10.2) mg/dL Magnesium (1.6-2.6) mg/dL Total Bilirubin (0.0-1.0) mg/dL Direct Bilirubin (0.0-0.5) mg/dL AST (5-37) U/L ALT (0-40) U/L Alkaline Phosphatase (39-117) U/L Total Creatine Kinase 1582 H (38-174) U/L Total Protein (6.5-8.0) g/dL Albumin (3.5-5.0) g/dL Urine Color Urine Appearance Urine pH (5.0-8.0) Ur Specific [place] (1.005-1.025) Urine Protein (NEG-TRACE) MG/DL Urine Glucose (UA) (NEG) MG/DL Urine Ketones (NEG) MG/DL Urine Blood (NEG) Urine Nitrite (NEG) Ur Leukocyte Esterase (NEG) Urine Opiates Screen (Not Detect) Ur Barbiturates Screen (Not Detect) Ur Phencyclidine Scrn (Not Detect) Ur Amphetamines Screen (Not Detect) U Benzodiazepines Scrn (Not Detect) Urine Cocaine Screen (Not Detect) U Marijuana (THC) Screen (Not Detect) Ethyl Alcohol mg/dL Coronavirus (PCR) (Negative) Influenza Type A (PCR) (Negative) Influenza Type B (PCR) (Negative) RSV RNA Qual (PCR) (Negative) <Guido Robins MD - Last Filed: 02/10/20 09:14> ECG Data Attestation: I personally reviewed and interpreted this ECG as follows: <LOVELY Goel - Last Filed: 01/29/20 13:48> ECG interpretation date: 01/29/20 <LOVELY Goel - Last Filed: 01/29/20 13:48> ECG interpretation time: 09:02 <LOVELY Goel - Last Filed: 01/29/20 13:48> Prior ECG tracings: available for review <LOVELY Goel - Last Filed: 01/29/20 13:48> Interpretation: Normal sinus rhythm with a ventricular rate of 87 with normal TN interval normal QRS duration normal QT/QTC interval. No acute ischemic changes noted. Similar when compared to prior August 2019 <LOVELY Goel - Last Filed: 01/29/20 13:48> Discharge Plan Discharge Clinical Impression: Acute drug withdrawal syndrome, Rhabdomyolysis <LOVELY Goel - Last Filed: 01/29/20 13:48> Patient Disposition: Home, Self-Care <LOVELY Goel - Last Filed: 01/29/20 13:48> Instructions: Buprenorphine/Naloxone (Into the mouth), Rhabdomyolysis (ED), Polysubstance Abuse (ED), Opioid Withdrawal (ED) <LOVELY Goel - Last Filed: 01/29/20 13:48> Referrals: [place],[facility] [Primary Care Provider] - 2 days <LOVELY Goel - Last Filed: 01/29/20 13:48> Interventions: ED Discharge Assessment Last Done: 01/29/20 16:51 <LOVELY Goel - Last Filed: 01/29/20 13:48> Discharge Date/Time: 01/29/20 16:53 <LOVELY Goel - Last Filed: 01/29/20 13:48> Print Language: Irish <LOVELY Goel - Last Filed: 01/29/20 13:48>
--- NOTE | 2020-01-29 10:13 | MHC.RECOVSUP ---
Recovery Support note: Patient is a 59 year old Micronesian speaking male who presented to [facility] in precipitated withdrawal after taking Suboxone too soon after using heroin. Patient was also in the ED yesterday 01/27 due to substance use. Patient presented as uncomfortable and had a difficult time staying still. Patient was requesting vin damien and crackers which were provided. Patient acknowledges that he should stop using heroin and that it is getting in the way of his life. Patient reports he is not established at an MAT clinic and that he got the Suboxone from a friend. This editorial writer will provide patient with information on the [facility] and other MAT clinics in the area.
[2020-01-29] MEDS: diphenhydrAMINE HCL 50 MG/ML VIAL IVPUSH (10:17)
[2020-01-29 10:18] VITALS: BP 126/79; PULSE 88; O2SAT 95
[2020-01-29 10:35] LABS: Influenza A PCR NEGATIVE (Negative); Influenza B PCR NEGATIVE (Negative); Resp Syncy Virus RNA Qual PCR NEGATIVE (Negative); SARS COV2 PCR INHOUSE NEGATIVE (Negative)
[2020-01-29 12:00] VITALS: BP 121/79; PULSE 89; RESP 15; TEMP 36.4; O2SAT 92
[2020-01-29 13:13] LABS: Glucose Urine UA NEG (NEG); Leukocyte Esterase Urine NEG (NEG); Nitrite Urine NEG (NEG); Specific Gravity - Urine >= 1.030 (1.005-1.025); Urine Blood NEG (NEG); Urine Ketones 5 MG/DL (NEG); Urine Protein NEG (NEG-TRACE)
[2020-01-29 13:20] LABS: Appearance Urine CLEAR; Color Urine YELLOW
[2020-01-29 13:45] LABS: Amphetamine Screen Urine Not Detected (Not Detect); Barbiturates, Urine Not Detected (Not Detect); Benzodiazepines Screen Urine Not Detected (Not Detect); Cannabinoid Screen Urine Not Detected (Not Detect); Cocaine Screen Urine POSITIVE (Not Detect); Opiate Screen Urine POSITIVE (Not Detect); Phencyclidine Screen Urine Not Detected (Not Detect)
--- NOTE | 2020-01-29 14:00 | PC.NURSE ---
provider made pt ready for discharge. Pt was sleeping, woke pt to tell him he is discharged. He states he needs a ride home. Pt unable to state where he lives. First states he lives in [place], then [place]. Attempted to ambulate pt, he is unsteady trying to rise from Stretcher. Provider aware, will wait to DC pt until he is more oriented with steady gait.
== END 2020-01-29 16:53 | disposition home or self-care (01) ==
PROVIDERS: Physician Assistant Medical; Emergency Provider Emergency Medicine
DX: F11.13 Opioid abuse with withdrawal (principal); M62.82 Rhabdomyolysis; F14.10 Cocaine abuse, uncomplicated; F12.10 Cannabis abuse, uncomplicated; F17.200 Nicotine dependence, unspecified, uncomplicated; Z71.6 Tobacco abuse counseling; Z79.899 Other long term (current) drug therapy
CPT/HCPCS: 0241U; 36415; 80048; 80076; 80307; 80320; 81003; 82550; 83735; 85025; 93005; 96361; 96372; 96374; 96375; 99284; J1200; J2060

== ENCOUNTER 2020-04-16 11:03 | Emergency (ER) | payer MEDICAID, SELFPAY ==
[2020-04-16 11:15] VITALS: BP 107/66; PULSE 108; RESP 18; TEMP 36.4; O2SAT 95; BMI 22.1
--- NOTE | 2020-04-16 11:18 | PC.NURSE ---
Security at bedside for changeover.
--- NOTE | 2020-04-16 11:29 | ED.OVERDOSE ---
HPI - Overdose General Chief Complaint: Overdose Stated Complaint: ETOH,FOUND IN BUSHES,VITALS STABLE Time Seen by Provider: 04/16/20 11:28 Source: patient and EMS Mode of arrival: EMS Limitations: altered mental status History of Present Illness HPI Narrative: did heroin and cocaine then found suboxone and tried that now he feels anxious, was found in a mistry outside, no trauma, no narcan MD complaint: accidental overdose Onset (ago): hour(s) Context: Accidental Overdose: wanted to get high Treatments Prior to Arrival: none Related Data Allergies Allergy/AdvReac Type Severity Reaction Status Date / Time No Known Allergies Allergy Mild NO REACTION Unverified 11/01/19 16:50 Review of Systems Review of Systems: ROS unable to be obtained due to altered mental status PMFSH Past Medical History Source: old records reviewed Medical History AIDS Asthma Depression Hepatitis C Opioid dependence Schizoaffective disorder Tardive dyskinesia Social History Social History Smoking Status: Current every day smoker Substance Use Type: Crack/Cocaine, Heroin and Marijuana Advance Directives: Yes Advance Directives on File: Yes Advance Directives Date on File: 01/29/20 Physical Exam Vital Signs: Vital Signs: Last Vital Signs Temp 97.5 F 04/16/20 11:15 Pulse 108 H 04/16/20 11:15 Resp 18 04/16/20 11:15 BP 107/66 04/16/20 11:15 Pulse Ox 95 04/16/20 11:15 Body Mass Index 22.1 Appearance: follows commands, agitated, restless. Eyes: pinpoint pupils ENT: Pharynx normal. Neck: Normal inspection. Neck supple. CVS: tachycardic heart rate and rhythm. Pulses normal. Respiratory: No respiratory distress. Breath sounds normal. Abdomen: Soft and nontender. Skin: Skin warm and dry. Normal skin color. Normal skin turgor. Extremities: No lower extremity edema. No calf ttp Neuro: will not participate, no focal deficits. Course Course Course Narrative: signed out pending clinical sobriety MDM - Overdose MDM Narrative Medical decision making narrative: 59 yo male using heroin then took suboxone now is agitated, no signs of trauma hx of same in past, will give PO ativan and observe Lab Data Labs: Lab Results 04/16/20 Range/Units 13:00 COVID-19 (NEETU) Negative (Negative) COVID-19 Clin Com See Note ECG Data Attestation: I personally reviewed and interpreted this ECG as follows: ECG interpretation date: 04/16/20 ECG interpretation time: 13:00 Interpretation: Rate: 91 Rhythm: NSR [place]:normal Normal P waves. Normal [place]. Normal QRS complex. ST T wave : normal no HAKEEM qTC: normal prior studies: no acute ischemia The study has been interpreted contemporaneously by me. . Discharge Plan Discharge Clinical Impression: Polysubstance abuse
[2020-04-16] MEDS: LORazepam 1 MG TABLET 2 MG PO (11:41)
--- NOTE | 2020-04-16 12:22 | ECG_ITS ---
Test Reason : OD Blood Pressure : / mmHG Vent. Rate : 091 BPM Atrial Rate : 091 BPM P-R Int : 192 ms QRS Dur : 092 ms QT Int : 386 ms P-R-T Axes : 053 064 014 degrees QTc Int : 474 ms Normal sinus rhythm Normal ECG When compared with ECG of 29-JAN-2020 09:02, No significant change was found Referred By: Mony Lemon Electronically Signed By:SHEILA CAMERON
[2020-04-16] MEDS: diphenhydrAMINE HCL 25 MG TABLET 50 MG PO (12:32)
--- NOTE | 2020-04-16 12:36 | MHC.RECOVSUP ---
? Reason for consult:Continuity of care o Current location: [facility] o Identified substance use concern: Heroin - Overdose - Withdrawal - Seeking ATS (detox) - Support ? Intervention: o ATS bed search started/completed/in process o MAT started or to be started o Community resources provided o ? Plan: o Bed search in progress to o Patient to follow up with [facility] after discharge ? Additional information: Pt waiting for EKG, Covid Test,Labs, Toxicology screen.
--- NOTE | 2020-04-16 12:40 | PC.NURSE ---
not able to sit still, benadryl given, alert, resp even and unlabored
[2020-04-16 13:21] LABS: COVID-19 Test Negative (Negative)
[2020-04-16 17:59] VITALS: BP 112/86; PULSE 112; RESP 23; TEMP 36.7; O2SAT 90
--- NOTE | 2020-04-16 18:03 | MHC.RECOVSUP ---
Patient is not mentally stable at the moment will try again in the near future.
--- NOTE | 2020-04-16 18:39 | PC.NURSE ---
pt [facility] intake [facility], after the phone call, he hung up, i called [facility] back but no answer, left a message, no return call yet, per resource recovery specialist [facility] said [facility] bed [facility] him
[2020-04-16 18:58] VITALS: BP 98/54; PULSE 103; RESP 16; TEMP 37.1; O2SAT 99
--- NOTE | 2020-04-16 19:17 | PC.NURSE ---
This RN attempted to contact [facility] to discuss bed status, however, no one picked up, voicemail left. The acid recovery operator that previously spoke with the patient has ended their shift, and the acid recovery operator on shift is currently attempting to contact/confirm bed status with [facility] to prepare for transfer. rn post partum (Sim Cisneros) aware.
--- NOTE | 2020-04-16 19:27 | PC.NURSE ---
This RN Spoke with Rimma from Care Team at [facility]. Per Rimma, the patient is not coherent enough to complete the intake for a detox facility, and it is unlikely that [facility] will accept the patient until he is more coherent. I will try to contact [facility] also to confirm. Keon (rhythmic gymnastics coach) updated with this information.
--- NOTE | 2020-04-16 19:34 | PC.NURSE ---
Spoke with Rimma from Care Team again. Per Rimma, patient was NOT accepted by [facility] at this time due to inability to complete intake. Pt is currently hyperactive, randomly flailing arms about, and is unable to carry on a cohesive conversation. Plan to continue to monitor in ED until he's able to carry on a conversation with staff to meet needs.
[2020-04-16 20:10] VITALS: BP 111/64; PULSE 97; RESP 18; TEMP 36.8; O2SAT 92
[2020-04-16 22:27] VITALS: BP 111/72; PULSE 99; RESP 19; TEMP 36.2; O2SAT 92
[2020-04-16] MEDS: OLANZapine 10 MG VIAL IM (22:58)
--- NOTE | 2020-04-16 23:00 | PC.NURSE ---
Pt medicated with Zyprexa 10mg IM to right thigh. Security present but not needed. Pt redirectable for brief moments, then continues flailing all extremities and randomly shouting or making animal noises, but is non-combative when spoken to. Pt was given water earlier and was giving himself a bird bath in the bed. Water surrounding the bed was cleaned to prevent falls. Side rails up for protection. Sitter present. Will continue to monitor.
--- NOTE | 2020-04-16 23:09 | PC.NURSE ---
patient medicated with Zyprexa 10mg IM to right thigh. Pt continues to flail all extremities, rolling around in his bed, but is re-directable for brief moments. Security present, but not needed to assist with medicating. Sitter at bedside. Pt requested and given ice water. Will continue to monitor.
[2020-04-16 23:55] VITALS: BP 112/64; RESP 18; TEMP 36.6; O2SAT 96
--- NOTE | 2020-04-17 00:59 | MHC.CARE ---
CARE Team contacted [facility] earlier this evening, and they confirm that pt is not on their list of admissions for the night. CARE Team briefly checks in with pt, who is yelling out at random and having agitated movements. Pt endorses SI and states that he would like to be admitted to . CARE Team communicates this to NORMA Carter, who plans on referring pt to [facility] for assessment.
[2020-04-17 01:59] VITALS: RESP 16
[2020-04-17 04:00] VITALS: RESP 16
[2020-04-17 06:00] VITALS: BP 98/64; PULSE 84; RESP 16; TEMP 36.6; O2SAT 98
--- NOTE | 2020-04-17 06:41 | PC.NURSE ---
PATIENT AMBULATED WITH STEADY GAIT. SITTER REMAINS PRESENT. WILL CONTINUE TO MONITOR.
--- NOTE | 2020-04-17 07:52 | PC.NURSE ---
RESTING QUIETLY ON STRETCHER. AWAITING [facility]N CONSULT. SITTER MAINTAINED
[2020-04-17 10:42] LABS: MANUAL DIFF FLAG NO
[2020-04-17 10:49] LABS: Basophils Percent Auto 0.7 % (0-2); Eosinophils Absolute Auto 0.1 X10*3/uL (0.0-0.4); Eosinophils Percent Auto 0.9 % (0-4); Hematocrit 40.4 % (42-52); Hemoglobin 14.1 g/dl (14.0-18.0); Imm Gran Abs Auto 0.02 X10*3/uL (0.00-0.03); Imm Gran Pct Auto 0.3 % (0.0-0.4); Lymphocytes Absolute Auto 1.5 X10*3/uL (1.2-4.9); Lymphocytes Percent Auto 24.8 % (20-40); Mean Corpuscular HGB Conc 34.9 g/dl (31.0-36.0); Mean Corpuscular Hemoglobin 30.4 pg (27.0-33.0); Mean Corpuscular Volume 87.1 fL (80-98); Mean Platelet Volume 10.7 fL (9.4-12.4); Monocytes Percent Auto 16.8 % (2-11); Neutrophils Absolute Auto 3.3 X10*3/uL (2.0-8.3); Neutrophils Percent Auto 56.5 % (45-73); Platelet Count 181 X10*3/uL (160-400); Red Blood Count 4.64 X10*6/uL (4.60-5.80); Red Cell Distribution Width 14.7 % (11.0-16.0); White Blood Count 5.9 X10*3/uL (4.8-10.8)
[2020-04-17 11:35] LABS: Alanine Aminotransferase 37 U/L (0-40); Albumin Level 3.7 g/dL (3.5-5.0); Alkaline Phosphatase 98 U/L (39-117); Anion Gap 10 (12-20); Aspartate Amino Transferase 197 U/L (5-37); Bilirubin Direct 0.3 mg/dL (0.0-0.5); Bilirubin Total 0.8 mg/dL (0.0-1.0); Blood Urea Nitrogen 34 mg/dL (9-16); Carbon Dioxide 25 mmol/L (22-29); Chloride 103 mmol/L (96-108); Creatinine Clr Calc Pharmacy 87.9; Estimated Glomerular Filt Rate > 60; Glucose Random 86 mg/dL (60-115); Potassium 3.9 mmol/L (3.3-5.1); Sodium 134 mmol/L (135-145); Total Protein 7.4 g/dL (6.5-8.0)
[2020-04-17 11:44] VITALS: BP 106/64; PULSE 83; RESP 15; O2SAT 96
--- NOTE | 2020-04-17 12:10 | MHC.RECOVRN ---
T/w met with pt in ED 22H to discuss substance use and desire for ATS. Pt reports last use of heroin yesterday, 1 bag, IV. Pt reports consistent use of 8-9 bundles daily. Pt denies SI/HI and reports that behaviors last night were due to frustration. Pt difficult to engage in conversation, had to remind pt to open eyes at times. Pt frequently shifting while on stretcher. T/w spoke with [facility] who had received ED notes and are requesting crisis consult prior to accepting admission for ATS.
[2020-04-17 15:08] VITALS: BP 109/62; PULSE 82; RESP 18; TEMP 36.8; O2SAT 97
--- NOTE | 2020-04-17 17:19 | PC.NURSE ---
Pt continues to be calm and cooperative at this time. Continuing to await [facility]N.
--- NOTE | 2020-04-17 17:48 | MHC.RECOVSUP ---
Met with Patient. He was calm and well responsive he under stood the plan and agree to the plan.
[2020-04-17 19:44] VITALS: BP 98/64; PULSE 86; RESP 16; TEMP 36.6; O2SAT 99
--- NOTE | 2020-04-17 19:50 | PC.NURSE ---
[facility]N CLEARED FOR DETOX.
--- NOTE | 2020-04-17 20:51 | PC.NURSE ---
PATIENT UNABLE TO STAY AWAKE TO HAVE A CONVERSATION. CARE TEAM SPOKE WITH PRINCESS ALMAGUER. PLAN TO HAVE N RE-EVALUATE PATIENT IN THE AM.
--- NOTE | 2020-04-17 21:51 | MHC.CARE ---
CARE Team attempts to engage pt in discussion about detox. He is unable to engage in discussion and is not ready to be discharged to detox facility. Unclear about his level of participation in crisis eval. CARE Team spaks with TRIPP Fournier who is not in agreement with crisis disposition for d/c. CARE Team speaks with Marjan from [facility] crisis. Plan is for ALISSA follow up in the morning for re assess.
[2020-04-18] VITALS (7 sets, daily range): BP systolic 108–140; BP diastolic 73–82; PULSE 64–84; RESP 16–18; TEMP 36.5–36.6; O2SAT 96–99
--- NOTE | 2020-04-18 14:51 | PC.NURSE ---
spoke with care team this am for pt dispo, stated re eval needed by [facility], N did eval this am will contact care team for dispo
--- NOTE | 2020-04-18 17:46 | PC.NURSE ---
spoke with n and felt patient could be dc to detox, care team aware and will have aircraft launch and recovery technician see patient
--- NOTE | 2020-04-18 18:56 | MHC.RECOVSUP ---
Gather information o Current location: [address] o Identified substance use concern: opiod - Overdose - Seeking ATS (detox) - Support ? Intervention: o Community resources provided o Harm reduction discussion ? Plan: o Patient to follow up with [facility] after discharge ? Additional information:I was able to speak with pt this evening after being told that he is interested in going to ATS. After speaking with pt, he stated that Tuesday was the first time he had used any substance in 5 months. He also stated that he used a total of 5 bags of heroin here in [place] and does not remember what happened afterwards or how he even got to [facility]. pt currently lives in a senior home in [place] and if they find out that he is here he will get kicked out. pt stated that he is currently in a MAT clinic in [place] but is very interested in going from suboxone to vivitrol. pt stated that he does have a hx of mental illness. I was able to provide pt with information on [facility], [place] [facility], social worker aide in [place], vivitrol and recovery coaching. pt was glad for the information.
--- NOTE | 2020-04-18 19:50 | PC.NURSE ---
REPORT TAKEN FROM ALAN RN, PT SITTING UP IN BED A&Ox4 SKIN PWD RESPIRATIONS EVEN UNLABORED. GIVEN SNACK AND PO FLUIDS. AWAITING DISPO FROM [facility]. AWARE OF PLAN OF CARE.
[2020-04-18 21:03] LABS: Amphetamine Screen Urine Not Detected (Not Detect); Barbiturates, Urine Not Detected (Not Detect); Benzodiazepines Screen Urine Not Detected (Not Detect); Cannabinoid Screen Urine Not Detected (Not Detect); Cocaine Screen Urine Not Detected (Not Detect); Opiate Screen Urine Not Detected (Not Detect); Phencyclidine Screen Urine Not Detected (Not Detect)
== END 2020-04-18 21:06 | disposition home or self-care (01) ==
PROVIDERS: Emergency Provider Emergency Medicine
DX: T40.1X1A Poisoning by heroin, accidental (unintentional), initial encounter (principal); T40.5X1A Poisoning by cocaine, accidental (unintentional), initial encounter; Y92.89 Other specified places as the place of occurrence of the external cause; F11.20 Opioid dependence, uncomplicated; F19.10 Other psychoactive substance abuse, uncomplicated; Z20.822 Contact with and (suspected) exposure to COVID-19; G24.01 Drug induced subacute dyskinesia; B20 Human immunodeficiency virus [HIV] disease; F25.9 Schizoaffective disorder, unspecified; F12.90 Cannabis use, unspecified, uncomplicated; F17.200 Nicotine dependence, unspecified, uncomplicated; Z86.19 Personal history of other infectious and parasitic diseases
CPT/HCPCS: 36415; 80048; 80076; 80307; 85025; 87635; 93005; 96372; 99285; Q0163

== ENCOUNTER 2020-04-22 16:02 | Inpatient (IN) | payer OTHER, SELFPAY ==
[2020-04-22] VITALS (8 sets, daily range): BP systolic 100–110; BP diastolic 61–74; PULSE 70–110; RESP 16–22; TEMP 36.8; O2SAT 93–98; BMI 25.8
--- NOTE | 2020-04-22 16:57 | ECG_ITS ---
Test Reason : PSYCH EVALUATION Blood Pressure : / mmHG Vent. Rate : 097 BPM Atrial Rate : 097 BPM P-R Int : 172 ms QRS Dur : 090 ms QT Int : 358 ms P-R-T Axes : 057 076 042 degrees QTc Int : 454 ms Normal sinus rhythm Normal ECG When compared with ECG of 16-APR-2020 12:54, No significant change was found Referred By: Bill Young Electronically Signed By:Sudheer Lyon
--- NOTE | 2020-04-22 16:59 | ED_ITS ---
HPI - Psych General Chief Complaint: Psychiatric Symptoms <Bill Young MD - Last Filed: 04/22/20 23:45> Stated Complaint: ABD PAIN,STATED SUBSTANCE ABUSE, SI <Bill Young MD - Last Filed: 04/22/20 23:45> Time Seen by Provider: 04/22/20 16:54 <Bill Young MD - Last Filed: 04/22/20 23:45> Source: patient and EMS <Bill Young MD - Last Filed: 04/22/20 23:45> Mode of arrival: EMS <Bill Young MD - Last Filed: 04/22/20 23:45> Limitations: no limitations <Bill Young MD - Last Filed: 04/22/20 23:45> History of Present Illness HPI Narrative: This is a 59-year-old male history of polysubstance abuse, was found in the street screaming and yelling he is going to kill himself by jumping in front of a car, patient stated that he has tried to hang himself 2 days ago but his roommate stop time, patient admitted to use it 4 bags of heroin and cocaine to day, patient in the emergency department is restless and agitated acting bizarre behavior admitted that he is suicidal. Patient declined any aspirin or Tylenol overdose. Also decline alcohol intake. <Bill Young MD - Last Filed: 04/22/20 23:45> Related Data Allergies/Adverse Reactions: Allergies Allergy/AdvReac Type Severity Reaction Status Date / Time No Known Allergies Allergy Mild NO REACTION Unverified 11/01/19 16:50 <Bill Young MD - Last Filed: 04/22/20 23:45> Review of Systems Review of Systems: Yes Unobtainable due to mental status (Patient is agitated, bizarre psychotic behavior and provide vague answers) <Bill Young MD - Last Filed: 04/22/20 23:45> PMF Past Medical History Medical History: Medical History AIDS Asthma Depression Hepatitis C Opioid dependence Schizoaffective disorder Tardive dyskinesia <Bill Young MD - Last Filed: 04/22/20 23:45> Social History Social History: Social History Alcohol intake: unknown Smoking Status: Current every day smoker Use of substances other than those prescribed or required for medical reasons: Yes Substance Use Type: Unknown Substance Use Type Other:: pt unable to state what he used today Advance Directives: No Advance Directives Information Provided: No Advance Directives Date on File: 01/29/20 <Bill Young MD - Last Filed: 04/22/20 23:45> Physical Exam Vital Signs: Vital Signs: Last Vital Signs Temp 98.2 F 04/22/20 18:56 Pulse 74 04/22/20 21:20 Resp 16 04/23/20 06:00 BP 100/61 04/22/20 21:01 Pulse Ox 98 04/22/20 21:20 Body Mass Index 25.8 Vital signs have been reviewed as appeared to be correct. Blood pressure normal. Heart rate normal. Respiration rate normal. Temperature normal. Oxygen saturation normal. <Bill Young MD - Last Filed: 04/22/20 23:45> Vital Signs: Last Vital Signs Temp 98.2 F 04/22/20 18:56 Pulse 74 04/22/20 21:20 Resp 16 04/23/20 06:00 BP 100/61 04/22/20 21:01 Pulse Ox 98 04/22/20 21:20 Body Mass Index 25.8 <Jean Pierre Farrell MD - Last Filed: 04/23/20 09:29> Appearance: Alert. Oriented, restless and agitated, no acute distress. Head: Normal external exam. Normocephalic. Atraumatic. No Fernandez signs noted. No raccoon eyes noted Eyes: PERRLA. EOMI. Conjunctiva and sclera normal. Eyelids normal. ENT: TM's Normal. Pharynx normal. Uvula midline. Moist mucous membranes. No trismus noted. No drooling noted. No muffled voice noted. Neck: Normal inspection. Neck supple. FROM. No adenopathy. Thyroid Normal. No meningeal signs. No neck mass noted. CVS: Normal heart rate and rhythm. Heart sound normal. No murmurs noted. Pulses normal throughout. Respiratory: No respiratory distress. Painless inspiration. Breath sounds normal. No wheezes/rales/rhonchi noted. Chest nontender. No accessory muscle usage noted or decreased air movement noted. Abdomen: Soft and nontender. Bowel sounds normal in all 4 quadrants. No distention noted. No organomegaly noted. No visible injury noted. Back: No CVA tenderness. Full range of motion noted. Skin: Skin warm and dry. Normal skin color. Normal skin turgor. No rashes/lesions/lacerations noted. Extremities: No lower extremity edema. Extremities exhibit normal range of motion. Extremities nontender. Neuro: Oriented X 3. No motor deficit. No sensory deficit. Patient Appearance: Inappropriate, restless, agitated. Patient Orientation: Person, Place, and Situation Level of Consciousness: Awake, Appropriate and Alert Patient Behavior: Talkative, Cooperative, Resistive to Care. Mood Description: Depressed Affect Description: Flat Patient Cognition Impaired: No Ability to Follow Directions: Pool Speech Pattern: Spontaneous Speech Memory Description: Intact Hallucinations: Visual (denies-reports sx to be resolved) Delusions: Not Present Thought Process: Illogical Thought Content: positive for [place] and positive for Circumstantial Depressive Symptoms: Increased Anxiety and Increased Irritability, suicidal thought with plan to jump in front of a car or hang himself. Judgement: Poor <Bill Young MD - Last Filed: 04/22/20 23:45> Course Course Course Narrative: Patient is agitated required 10 mg of IM Zyprexa, patient is cleared medically. Awaiting for [facility] evaluate. <Bill Young MD - Last Filed: 04/22/20 23:45> MDM - Psych Lab Data Result diagrams: : 04/22/20 18:49 04/22/20 18:49 <Bill Young MD - Last Filed: 04/22/20 23:45> Labs: Lab Results 04/22/20 04/22/20 04/22/20 Range/Units 18:38 18:49 18:49 WBC 10.3 (4.8-10.8) X10*3/uL RBC 4.49 L (4.60-5.80) X10*6/uL Hgb 13.7 L (14.0-18.0) g/dl Hct 39.3 L (42-52) % MCV 87.5 (80-98) fL MCH 30.5 (27.0-33.0) pg MCHC 34.9 (31.0-36.0) g/dl RDW 14.7 (11.0-16.0) % Plt Count 170 (160-400) X10*3/uL MPV 10.5 (9.4-12.4) fL Immature Gran % (Auto) Cancelled Neut % (Auto) Cancelled Lymph % (Auto) Cancelled [place] % (Auto) Cancelled Eos % (Auto) Cancelled Baso % (Auto) Cancelled Lymph # (Auto) Cancelled [place] # (Auto) Cancelled Eos # (Auto) Cancelled Baso # (Auto) Cancelled Abs Immat Gran (auto) Cancelled Absolute Neuts (auto) Cancelled Absolute Nucleated RBC 0.000 (0.0-0.012) X10*3/uL Nucleated RBC % (auto) 0.0 (0.0-0.2) /100WBC Neutrophils % (Manual) 72 (45-73) % Lymphocytes % (Manual) 11 L (20-40) % Monocytes % (Manual) 11 (2-11) % Eosinophils % (Manual) 3 (0-4) % Basophils % (Manual) 3 H (0-1) % Abs Neuts (Manual) 7.4 (2.2-7.9) X10*3/uL Lymphocytes # (Manual) 1.1 (0.6-4.8) X10*3/uL Monocytes # (Manual) 1.1 (0.0-1.2) X10*3/uL Eosinophils # (Manual) 0.3 (0.0-0.8) X10*3/UL Basophils # (Manual) 0.3 (0.0-0.3) X10*3/uL Platelet Estimate NORMAL (NORMAL) Plt Morphology Comment NORMAL RBC Morphology NOTED Tear Drop Cells 1+ Sodium 133 L (135-145) mmol/L Potassium 5.0 D (3.3-5.1) mmol/L Chloride 99 (96-108) mmol/L Carbon Dioxide 24 (22-29) mmol/L Anion Gap 15 (12-20) BUN 30 H (9-16) mg/dL Creatinine 1.06 (0.5-1.4) mg/dL Estim Creat Clear Calc 66.8 Estimated GFR > 60 Random Glucose 90 (60-115) mg/dL Calcium 9.3 (8.4-10.2) mg/dL Magnesium 2.0 (1.6-2.6) mg/dL Lipase (8-78) U/L Urine Color YELLOW Urine Appearance CLEAR Urine pH 5.5 (5.0-8.0) Ur Specific [place] >= 1.030 H (1.005-1.025) Urine Protein NEG (NEG-TRACE) MG/DL Urine Glucose (UA) NEG (NEG) MG/DL Urine Ketones NEG (NEG) MG/DL Urine Blood 1+ H (NEG) Urine Nitrite NEG (NEG) Ur Leukocyte Esterase NEG (NEG) Urine RBC 1-4 (0) /HPF Urine WBC 0 (0-4) /HPF Ur Squamous Epith Cells TRACE /LPF Urine Bacteria TRACE /LPF Hyaline Casts 0-2 /LPF Salicylates < 5.0 L (15-30) mg/dL Acetaminophen < 1 (<30) mcg/mL Ethyl Alcohol mg/dL COVID-19 (NEETU) (Negative) COVID-19 Clin Com 04/22/20 04/22/20 04/22/20 Range/Units 18:49 18:49 18:49 WBC (4.8-10.8) X10*3/uL RBC (4.60-5.80) X10*6/uL Hgb (14.0-18.0) g/dl Hct (42-52) % MCV (80-98) fL MCH (27.0-33.0) pg MCHC (31.0-36.0) g/dl RDW (11.0-16.0) % Plt Count (160-400) X10*3/uL MPV (9.4-12.4) fL Immature Gran % (Auto) Neut % (Auto) Lymph % (Auto) [place] % (Auto) Eos % (Auto) Baso % (Auto) Lymph # (Auto) [place] # (Auto) Eos # (Auto) Baso # (Auto) Abs Immat Gran (auto) Absolute Neuts (auto) Absolute Nucleated RBC (0.0-0.012) X10*3/uL Nucleated RBC % (auto) (0.0-0.2) /100WBC Neutrophils % (Manual) (45-73) % Lymphocytes % (Manual) (20-40) % Monocytes % (Manual) (2-11) % Eosinophils % (Manual) (0-4) % Basophils % (Manual) (0-1) % Abs Neuts (Manual) (2.2-7.9) X10*3/uL Lymphocytes # (Manual) (0.6-4.8) X10*3/uL Monocytes # (Manual) (0.0-1.2) X10*3/uL Eosinophils # (Manual) (0.0-0.8) X10*3/UL Basophils # (Manual) (0.0-0.3) X10*3/uL Platelet Estimate (NORMAL) Plt Morphology Comment RBC Morphology Tear Drop Cells Sodium (135-145) mmol/L Potassium (3.3-5.1) mmol/L Chloride (96-108) mmol/L Carbon Dioxide (22-29) mmol/L Anion Gap (12-20) BUN (9-16) mg/dL Creatinine (0.5-1.4) mg/dL Estim Creat Clear Calc Estimated GFR Random Glucose (60-115) mg/dL Calcium (8.4-10.2) mg/dL Magnesium (1.6-2.6) mg/dL Lipase 38 (8-78) U/L Urine Color Urine Appearance Urine pH (5.0-8.0) Ur Specific [place] (1.005-1.025) Urine Protein (NEG-TRACE) MG/DL Urine Glucose (UA) (NEG) MG/DL Urine Ketones (NEG) MG/DL Urine Blood (NEG) Urine Nitrite (NEG) Ur Leukocyte Esterase (NEG) Urine RBC (0) /HPF Urine WBC (0-4) /HPF Ur Squamous Epith Cells /LPF Urine Bacteria /LPF Hyaline Casts /LPF Salicylates (15-30) mg/dL Acetaminophen (<30) mcg/mL Ethyl Alcohol < 10 mg/dL COVID-19 (NEETU) Negative (Negative) COVID-19 Clin Com See Note <Bill Young MD - Last Filed: 04/22/20 23:45> Lab Results 04/22/20 04/22/20 04/22/20 Range/Units 18:38 18:49 18:49 WBC 10.3 (4.8-10.8) X10*3/uL RBC 4.49 L (4.60-5.80) X10*6/uL Hgb 13.7 L (14.0-18.0) g/dl Hct 39.3 L (42-52) % MCV 87.5 (80-98) fL MCH 30.5 (27.0-33.0) pg MCHC 34.9 (31.0-36.0) g/dl RDW 14.7 (11.0-16.0) % Plt Count 170 (160-400) X10*3/uL MPV 10.5 (9.4-12.4) fL Immature Gran % (Auto) Cancelled Neut % (Auto) Cancelled Lymph % (Auto) Cancelled [place] % (Auto) Cancelled Eos % (Auto) Cancelled Baso % (Auto) Cancelled Lymph # (Auto) Cancelled [place] # (Auto) Cancelled Eos # (Auto) Cancelled Baso # (Auto) Cancelled Abs Immat Gran (auto) Cancelled Absolute Neuts (auto) Cancelled Absolute Nucleated RBC 0.000 (0.0-0.012) X10*3/uL Nucleated RBC % (auto) 0.0 (0.0-0.2) /100WBC Neutrophils % (Manual) 72 (45-73) % Lymphocytes % (Manual) 11 L (20-40) % Monocytes % (Manual) 11 (2-11) % Eosinophils % (Manual) 3 (0-4) % Basophils % (Manual) 3 H (0-1) % Abs Neuts (Manual) 7.4 (2.2-7.9) X10*3/uL Lymphocytes # (Manual) 1.1 (0.6-4.8) X10*3/uL Monocytes # (Manual) 1.1 (0.0-1.2) X10*3/uL Eosinophils # (Manual) 0.3 (0.0-0.8) X10*3/UL Basophils # (Manual) 0.3 (0.0-0.3) X10*3/uL Platelet Estimate NORMAL (NORMAL) Plt Morphology Comment NORMAL RBC Morphology NOTED Tear Drop Cells 1+ Sodium 133 L (135-145) mmol/L Potassium 5.0 D (3.3-5.1) mmol/L Chloride 99 (96-108) mmol/L Carbon Dioxide 24 (22-29) mmol/L Anion Gap 15 (12-20) BUN 30 H (9-16) mg/dL Creatinine 1.06 (0.5-1.4) mg/dL Estim Creat Clear Calc 66.8 Estimated GFR > 60 Random Glucose 90 (60-115) mg/dL Calcium 9.3 (8.4-10.2) mg/dL Magnesium 2.0 (1.6-2.6) mg/dL Lipase (8-78) U/L Urine Color YELLOW Urine Appearance CLEAR Urine pH 5.5 (5.0-8.0) Ur Specific [place] >= 1.030 H (1.005-1.025) Urine Protein NEG (NEG-TRACE) MG/DL Urine Glucose (UA) NEG (NEG) MG/DL Urine Ketones NEG (NEG) MG/DL Urine Blood 1+ H (NEG) Urine Nitrite NEG (NEG) Ur Leukocyte Esterase NEG (NEG) Urine RBC 1-4 (0) /HPF Urine WBC 0 (0-4) /HPF Ur Squamous Epith Cells TRACE /LPF Urine Bacteria TRACE /LPF Hyaline Casts 0-2 /LPF Salicylates < 5.0 L (15-30) mg/dL Acetaminophen < 1 (<30) mcg/mL Ethyl Alcohol mg/dL COVID-19 (NEETU) (Negative) COVID-19 Clin Com 04/22/20 04/22/20 04/22/20 Range/Units 18:49 18:49 18:49 WBC (4.8-10.8) X10*3/uL RBC (4.60-5.80) X10*6/uL Hgb (14.0-18.0) g/dl Hct (42-52) % MCV (80-98) fL MCH (27.0-33.0) pg MCHC (31.0-36.0) g/dl RDW (11.0-16.0) % Plt Count (160-400) X10*3/uL MPV (9.4-12.4) fL Immature Gran % (Auto) Neut % (Auto) Lymph % (Auto) [place] % (Auto) Eos % (Auto) Baso % (Auto) Lymph # (Auto) [place] # (Auto) Eos # (Auto) Baso # (Auto) Abs Immat Gran (auto) Absolute Neuts (auto) Absolute Nucleated RBC (0.0-0.012) X10*3/uL Nucleated RBC % (auto) (0.0-0.2) /100WBC Neutrophils % (Manual) (45-73) % Lymphocytes % (Manual) (20-40) % Monocytes % (Manual) (2-11) % Eosinophils % (Manual) (0-4) % Basophils % (Manual) (0-1) % Abs Neuts (Manual) (2.2-7.9) X10*3/uL Lymphocytes # (Manual) (0.6-4.8) X10*3/uL Monocytes # (Manual) (0.0-1.2) X10*3/uL Eosinophils # (Manual) (0.0-0.8) X10*3/UL Basophils # (Manual) (0.0-0.3) X10*3/uL Platelet Estimate (NORMAL) Plt Morphology Comment RBC Morphology Tear Drop Cells Sodium (135-145) mmol/L Potassium (3.3-5.1) mmol/L Chloride (96-108) mmol/L Carbon Dioxide (22-29) mmol/L Anion Gap (12-20) BUN (9-16) mg/dL Creatinine (0.5-1.4) mg/dL Estim Creat Clear Calc Estimated GFR Random Glucose (60-115) mg/dL Calcium (8.4-10.2) mg/dL Magnesium (1.6-2.6) mg/dL Lipase 38 (8-78) U/L Urine Color Urine Appearance Urine pH (5.0-8.0) Ur Specific [place] (1.005-1.025) Urine Protein (NEG-TRACE) MG/DL Urine Glucose (UA) (NEG) MG/DL Urine Ketones (NEG) MG/DL Urine Blood (NEG) Urine Nitrite (NEG) Ur Leukocyte Esterase (NEG) Urine RBC (0) /HPF Urine WBC (0-4) /HPF Ur Squamous Epith Cells /LPF Urine Bacteria /LPF Hyaline Casts /LPF Salicylates (15-30) mg/dL Acetaminophen (<30) mcg/mL Ethyl Alcohol < 10 mg/dL COVID-19 (NEETU) Negative (Negative) COVID-19 Clin Com See Note <Jean Pierre Sciaruto, MD - Last Filed: 04/23/20 09:29> Discharge Plan Discharge Clinical Impression: Chronic schizophrenia, Polysubstance abuse <Bill Young MD - Last Filed: 04/22/20 23:45>
[2020-04-22 18:48] LABS: Glucose Urine UA NEG (NEG); Leukocyte Esterase Urine NEG (NEG); Nitrite Urine NEG (NEG); PH 5.5 (5.0-8.0); Specific Gravity - Urine >= 1.030 (1.005-1.025); Urine Blood 1+ (NEG); Urine Ketones NEG (NEG); Urine Protein NEG (NEG-TRACE)
[2020-04-22 18:50] LABS: Appearance Urine CLEAR; Color Urine YELLOW
[2020-04-22 18:54] LABS: Bacteria Urine TRACE /LPF; Hyaline Casts Urine 0-2 /LPF; Squamous Epithelial Cell Urine TRACE /LPF; WBC Urine 0 /HPF (0-4)
[2020-04-22 18:57] LABS: Hematocrit 39.3 % (42-52); Hemoglobin 13.7 g/dl (14.0-18.0); Mean Corpuscular HGB Conc 34.9 g/dl (31.0-36.0); Mean Corpuscular Hemoglobin 30.5 pg (27.0-33.0); Mean Corpuscular Volume 87.5 fL (80-98); Mean Platelet Volume 10.5 fL (9.4-12.4); Platelet Count 170 X10*3/uL (160-400); Red Blood Count 4.49 X10*6/uL (4.60-5.80); Red Cell Distribution Width 14.7 % (11.0-16.0)
--- NOTE | 2020-04-22 18:59 | PC.NURSE ---
patient awake/alert, in constant movement in bed with rapid speech/rambling, pt has no c/o pain, vitals stable, patient stated to this nurse that he just didnt want to live anymore after the recent of his mother, 1:1 sitter at bedside, labs drawn, urine obtained, will continue to monitor.
[2020-04-22 19:01] LABS: WBC ABN SCTR FOR CBC 1
[2020-04-22 19:19] LABS: COVID-19 Test Negative (Negative)
[2020-04-22 19:20] LABS: Ethanol < 10 mg/dL
[2020-04-22 19:23] LABS: Acetaminophen LAB < 1 mcg/mL (<30); Anion Gap 15 (12-20); Blood Urea Nitrogen 30 mg/dL (9-16); Calcium 9.3 mg/dL (8.4-10.2); Carbon Dioxide 24 mmol/L (22-29); Chloride 99 mmol/L (96-108); Creatinine Clr Calc Pharmacy 66.8; Estimated Glomerular Filt Rate > 60; Glucose Random 90 mg/dL (60-115); Lipase 38 U/L (8-78); Salicylate < 5.0 mg/dL (15-30); Sodium 133 mmol/L (135-145)
[2020-04-22 19:46] LABS: White Blood Count 10.3 X10*3/uL (4.8-10.8)
[2020-04-22 19:47] LABS: Basophils Abs Manual 0.3 X10*3/uL (0.0-0.3); Basophils Percent Manual 3 % (0-1); Eosinophils Absolute Manual 0.3 X10*3/UL (0.0-0.8); Eosinophils Percent Manual 3 % (0-4); Lymphocytes Absolute Manual 1.1 X10*3/uL (0.6-4.8); Lymphocytes Percent Manual 11 % (20-40); Monocytes Absolute Manual 1.1 X10*3/uL (0.0-1.2); Monocytes Percent Manual 11 % (2-11); Neutrophils Percent Manual 72 % (45-73)
[2020-04-22 19:48] LABS: Platelet Estimate NORMAL (NORMAL); Platelet Morphology Comment NORMAL; RBC Morphology NOTED; Tear Drop Cells 1+
[2020-04-22 19:49] LABS: Neutrophils Absolute Manual 7.4 X10*3/uL (2.2-7.9)
[2020-04-22] MEDS: OLANZapine 10 MG VIAL IM (20:50)
--- NOTE | 2020-04-22 20:56 | PC.NURSE ---
faxed to [facility]
--- NOTE | 2020-04-22 21:44 | PC.NURSE ---
pt in hallway, pt resting in stretcher without complaints.
[2020-04-23 06:00] VITALS: RESP 16
--- NOTE | 2020-04-23 07:59 | PC.NURSE ---
Pt sleeping at this time. Currently awaiting Juan A heller.
--- NOTE | 2020-04-23 09:31 | PC.NURSE ---
Call placed to [facility] inquiring status of initial eval. Told pt will be seen some time after noon today.
--- NOTE | 2020-04-23 11:22 | PC.NURSE ---
patient continues to sleep. waiting for evaluation form N.
--- NOTE | 2020-04-23 13:21 | MHC.RECOVSUP ---
? Reason for consult:Continuity of care o Current location: Bed 22Hall o Identified substance use concern:Heroin - Withdrawal - Support ? Intervention o Community resources provided o Harm reduction discussion ? Plan: o Referral to [facility] o Follow up tomorrow o Patient awaiting crisis evaluation o Patient to follow up with [facility] after discharge ? Additional information:
[2020-04-23 13:35] VITALS: RESP 18
--- NOTE | 2020-04-23 14:30 | PC.NURSE ---
call again to [facility] to see when eval would be complete. no answer from N.
--- NOTE | 2020-04-23 15:08 | PC.NURSE ---
edgar has not arrived for eval, called again to see when eval could be completed, on hold for 5 minutes, no answer.
[2020-04-23 15:16] VITALS: RESP 16
[2020-04-23 17:36] VITALS: BP 103/60; PULSE 76; RESP 18; TEMP 36.7; O2SAT 95
--- NOTE | 2020-04-23 20:44 | PC.NURSE ---
Report. received. PT is sleeping in bed. Waiting to be seen by N.
--- NOTE | 2020-04-23 21:49 | PC.NURSE ---
Patient just got moved from main ED in wheelchair, it was observed during his bathroom visit that patient has a gait deficit needed help with ambulation and patient is fall risk. Urinal on bedside, patient denied distress, will continue to monitor.
[2020-04-23 22:14] LABS: Amphetamine Screen Urine Not Detected (Not Detect); Barbiturates, Urine Not Detected (Not Detect); Benzodiazepines Screen Urine Not Detected (Not Detect); Cannabinoid Screen Urine Not Detected (Not Detect); Cocaine Screen Urine POSITIVE (Not Detect); Opiate Screen Urine POSITIVE (Not Detect); Phencyclidine Screen Urine Not Detected (Not Detect)
[2020-04-24 06:00] VITALS: RESP 16
--- NOTE | 2020-04-24 07:01 | PC.NURSE ---
Report received. PT currently sleeping, respirations even and unlabored, in no apparent distress. PT is inpatient bedsearch.
[2020-04-24 08:58] VITALS: BP 121/75; PULSE 75; RESP 16; TEMP 36.9; O2SAT 96
--- NOTE | 2020-04-24 15:43 | P.CNPS_ITS ---
History of Present Illness Date of Service: 04/24/20 Chief Complaint: ABD PAIN,STATED SUBSTANCE ABUSE Reason for Consult: Medication evaluation Requesting physician: Shahid Valdivia Discussed with referring provider: No (discussed with team) Sources of Information: patient interviewed and chart reviewed HPI Narrative: 59 yo male, hx of opiate dependence, schizoaffective disorder, major depression with SI, HIV, Asthma, Hep C, Hx TD presented with polysubstance abuse, reported attempt to hang himself. Team requested eval for return to medications. 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 Pt is not able to tell TW what his regime is. Pt reports he has prescriptions from [facility] and his landlord, Rodolfo Swanson [phone] helps him to dispense medications. Re ports daily thoughts of suicide secondary to depression and chronic leg pain. Reports interrupted sleep, appetite anergy and amotivation. Call to [facility] who reports pt is taking Benztropine 1 mg HS; Bactrim 400mg-80 mg daily; Quetiapine 200 mg HS; Mirtazapine 15 mg HS, Sertraline 50 mg daily; Colace 100 mg bid prn, Suboxone 8mg-2mg 1 film bid and Biktarvy [id number] mg at HS. Past Psychiatric History: Several M5 admissions Medical Evaluation Reviewed: Yes Review of Systems Psychiatric: Reports change in appetite (decreased, requests Ensure supplementation-Vanilla), Reports depression, Reports difficulty concentrating and Reports hopelessness [facility] Medical History (Updated 04/24/20 @ 16:10 by Christie Mann, TALENT DEVELOPMENT ANALYST) AIDS Asthma Cocaine use disorder, severe, dependence Depression Hepatitis C HIV (human immunodeficiency virus infection) Opioid dependence Opioid use disorder, severe, in early remission, on maintenance therapy, dependence Schizoaffective disorder Tardive dyskinesia Substance History: Using heroin and cocaine Trauma History: Yes Diagnostics Vital Signs (24Hr): Vital Signs - 24 hr 04/23/20 17:36 04/24/20 06:00 04/24/20 08:58 Temperature 98.0 F 98.5 F Pulse Rate 76 75 Respiratory Rate 18 16 16 Blood Pressure 103/60 121/75 Pulse Oximetry 95 96 Body Mass Index 25.8 Labs Results: 04/22/20 18:49 04/22/20 18:49 Labs: Laboratory Results - last 48 hr 04/22/20 04/22/20 04/22/20 18:38 18:38 18:49 WBC RBC Hgb Hct MCV MCH MCHC RDW Plt Count MPV Immature Gran % (Auto) Neut % (Auto) Lymph % (Auto) [place] % (Auto) Eos % (Auto) Baso % (Auto) Lymph # (Auto) [place] # (Auto) Eos # (Auto) Baso # (Auto) Abs Immat Gran (auto) Absolute Neuts (auto) Absolute Nucleated RBC Nucleated RBC % (auto) Neutrophils % (Manual) Lymphocytes % (Manual) Monocytes % (Manual) Eosinophils % (Manual) Basophils % (Manual) Abs Neuts (Manual) Lymphocytes # (Manual) Monocytes # (Manual) Eosinophils # (Manual) Basophils # (Manual) Platelet Estimate Plt Morphology Comment RBC Morphology Tear Drop Cells Sodium 133 L Potassium 5.0 D Chloride 99 Carbon Dioxide 24 Anion Gap 15 BUN 30 H Creatinine 1.06 Estim Creat Clear Calc 66.8 Estimated GFR > 60 Random Glucose 90 Calcium 9.3 Magnesium 2.0 Lipase Urine Color YELLOW Urine Appearance CLEAR Urine pH 5.5 Ur Specific Power >= 1.030 H Urine Protein NEG Urine Glucose (UA) NEG Urine Ketones NEG Urine Blood 1+ H Urine Nitrite NEG Ur Leukocyte Esterase NEG Urine RBC 1-4 Urine WBC 0 Ur Squamous Epith Cells TRACE Urine Bacteria TRACE Hyaline Casts 0-2 Salicylates < 5.0 L Urine Opiates Screen POSITIVE H Acetaminophen < 1 Ur Barbiturates Screen Not Detected Ur Phencyclidine Scrn Not Detected Ur Amphetamines Screen Not Detected U Benzodiazepines Scrn Not Detected Urine Cocaine Screen POSITIVE H U Marijuana (THC) Screen Not Detected Ethyl Alcohol COVID-19 (NEETU) COVID-19 Clin Com 04/22/20 04/22/20 04/22/20 18:49 18:49 18:49 WBC 10.3 RBC 4.49 L Hgb 13.7 L Hct 39.3 L MCV 87.5 MCH 30.5 MCHC 34.9 RDW 14.7 Plt Count 170 MPV 10.5 Immature Gran % (Auto) Cancelled Neut % (Auto) Cancelled Lymph % (Auto) Cancelled [place] % (Auto) Cancelled Eos % (Auto) Cancelled Baso % (Auto) Cancelled Lymph # (Auto) Cancelled [place] # (Auto) Cancelled Eos # (Auto) Cancelled Baso # (Auto) Cancelled Abs Immat Gran (auto) Cancelled Absolute Neuts (auto) Cancelled Absolute Nucleated RBC 0.000 Nucleated RBC % (auto) 0.0 Neutrophils % (Manual) 72 Lymphocytes % (Manual) 11 L Monocytes % (Manual) 11 Eosinophils % (Manual) 3 Basophils % (Manual) 3 H Abs Neuts (Manual) 7.4 Lymphocytes # (Manual) 1.1 Monocytes # (Manual) 1.1 Eosinophils # (Manual) 0.3 Basophils # (Manual) 0.3 Platelet Estimate NORMAL Plt Morphology Comment NORMAL RBC Morphology NOTED Tear Drop Cells 1+ Sodium Potassium Chloride Carbon Dioxide Anion Gap BUN Creatinine Estim Creat Clear Calc Estimated GFR Random Glucose Calcium Magnesium Lipase 38 Urine Color Urine Appearance Urine pH Ur Specific Power Urine Protein Urine Glucose (UA) Urine Ketones Urine Blood Urine Nitrite Ur Leukocyte Esterase Urine RBC Urine WBC Ur Squamous Epith Cells Urine Bacteria Hyaline Casts Salicylates Urine Opiates Screen Acetaminophen Ur Barbiturates Screen Ur Phencyclidine Scrn Ur Amphetamines Screen U Benzodiazepines Scrn Urine Cocaine Screen U Marijuana (THC) Screen Ethyl Alcohol COVID-19 (NEETU) Negative COVID-19 Clin Com See Note 04/22/20 18:49 WBC RBC Hgb Hct MCV MCH MCHC RDW Plt Count MPV Immature Gran % (Auto) Neut % (Auto) Lymph % (Auto) [place] % (Auto) Eos % (Auto) Baso % (Auto) Lymph # (Auto) [place] # (Auto) Eos # (Auto) Baso # (Auto) Abs Immat Gran (auto) Absolute Neuts (auto) Absolute Nucleated RBC Nucleated RBC % (auto) Neutrophils % (Manual) Lymphocytes % (Manual) Monocytes % (Manual) Eosinophils % (Manual) Basophils % (Manual) Abs Neuts (Manual) Lymphocytes # (Manual) Monocytes # (Manual) Eosinophils # (Manual) Basophils # (Manual) Platelet Estimate Plt Morphology Comment RBC Morphology Tear Drop Cells Sodium Potassium Chloride Carbon Dioxide Anion Gap BUN Creatinine Estim Creat Clear Calc Estimated GFR Random Glucose Calcium Magnesium Lipase Urine Color Urine Appearance Urine pH Ur Specific Power Urine Protein Urine Glucose (UA) Urine Ketones Urine Blood Urine Nitrite Ur Leukocyte Esterase Urine RBC Urine WBC Ur Squamous Epith Cells Urine Bacteria Hyaline Casts Salicylates Urine Opiates Screen Acetaminophen Ur Barbiturates Screen Ur Phencyclidine Scrn Ur Amphetamines Screen U Benzodiazepines Scrn Urine Cocaine Screen U Marijuana (THC) Screen Ethyl Alcohol < 10 COVID-19 (NEETU) COVID-19 Clin Com Mental Status Exam Mental Status Exam Patient Appearance: Fatigued Patient Orientation: Person, Place and Situation Level of Consciousness: Awake Patient Behavior: Talkative, Cooperative, Anxious, Fearful, Fatigued and Good Eye Contact Mood Description: Withdrawn, Depressed, Anxious and Sad Affect Description: Flat Patient Cognition Impaired: No Ability to Follow Directions: Good Speech Pattern: Spontaneous Speech and Soft-Spoken Memory Description: Remote Impaired and Episodic Impaired Hallucinations: Auditory (initially denies, then retracts, stating sometimes ) Delusions: Paranoid Ideation Thought Process: Distracted and Rumination Thought Content: positive for [place], positive for Circumstantial and positive for Suicidal Ideation (reports persistant thoughts of wanting to /kill himsel f.) Depressive Symptoms: Increased Anxiety, Diff. Making Decisions, Difficulty Sleeping, Changes in Appetite, Muscle Pain, Loss of Int. in Activity, Feelings of Worthlessness, Hopelessness, Isolating-Friends/Family, Feelings of Guilt, Unhappiness, Increased Fatigue, Thoughts of /Suicide, Low Self Esteem, Loss of Energy and Difficulty Concentrating Judgement: Poor Medications Medications Benztropine 1 mg hs Bactrim 400mg-80 mg daily Quetiapine 200 mg hs Mirtazapine 15 mg hs Sertraline 50 mg daily Biktarvy 50 mg-200mg-25 mg HS Colace 100 mg bid prn Suboxone 8 mg-2 mg bid Narcan 4 mg nasal spray prn List provided by [facility] today Allergies Allergies Allergy/AdvReac Type Severity Reaction Status Date / Time No Known Allergies Allergy Mild NO REACTION Unverified 11/01/19 16:50 Assessment & Plan Assessment & Plan (1) Chronic schizophrenia: Status: Acute Code(s): F20.9 - Schizophrenia, unspecified Recommendations: Suggest -Seroquel 200 mg hs -Mirtazapine 15 mg hs -Benztropine 1 mg hs (2) Opioid use disorder, severe, in early remission, on maintenance therapy, dependence: Status: Acute Code(s): F11.21 - Opioid dependence, in remission Recommendations: -Addiction consult to re-start Suboxone 8 mg 2mg bid (3) Cocaine use disorder, severe, dependence: Status: Acute Code(s): F14.20 - Cocaine dependence, uncomplicated (4) HIV (human immunodeficiency virus infection): Status: Acute Code(s): B20 - Human immunodeficiency virus [HIV] disease Recommendations: -Infectious disease consult to re-start Biktarvy Greater than 50% of the session was spent on counseling and/or coordination of care
[2020-04-24 18:00] VITALS: BP 120/78; PULSE 70; RESP 20; TEMP 36.8; O2SAT 98
[2020-04-24] MEDS: Benztropine Mesylate 1 MG TABLET PO (20:46)
[2020-04-24] MEDS: Mirtazapine 15 MG TABLET PO (20:46)
[2020-04-24] MEDS: QUEtiapine Fumarate 200 MG TABLET PO (20:46)
[2020-04-24 21:25] VITALS: BP 141/86; PULSE 73; RESP 16; TEMP 36.6; O2SAT 98
[2020-04-24 22:00] VITALS: BP 150/75; RESP 20; TEMP 36.4; O2SAT 95
[2020-04-25] MEDS: LORazepam 1 MG TABLET PO (04:00)
--- NOTE | 2020-04-25 07:03 | PC.NURSE ---
Report received. PT currently sleeping, respirations even and unlabored, in no apparent distress. PT is inpatient bedsearch.
[2020-04-25 09:54] VITALS: BP 116/81; PULSE 90; RESP 16; TEMP 36.9; O2SAT 98
--- NOTE | 2020-04-25 14:31 | PC.NURSE ---
Nurse to nurse completed with Daina from
--- NOTE | 2020-04-25 17:41 | PC.NURSE ---
Pt currently resting, calm and cooperative. PT to be admitted to today, pt aware of plan of care.
[2020-04-25 17:52] VITALS: BP 121/88; PULSE 87; RESP 18; TEMP 36.6; O2SAT 98
[2020-04-25] MEDS: LORazepam 1 MG TABLET 2 MG PO (21:18)
--- NOTE | 2020-04-25 22:57 | PC.ADMIT ---
Pt presented to the ED at [facility] with increased depression, command auditory hallucinations, and suicidal ideation with no attempts made prior to admission. He signed the Conditional Voluntary before coming to the unit and signed a Three Day Notice on the unit that will be up on Tuesday04/30/2020. Pt was calm, cooperative, and able to participate in the admission assessment. He was tangential and distracted at times, this writer editor was able to redirect him verbally. Pt reported periodic alcohol, heroin, and cocaine use but denied any current signs and symptoms of withdrawal. This writer editor did not witness any objective signs and symptoms of withdrawal upon admission. Pt does have a medical history of Hep C, HIV, asthma, and tardive dyskenesia. He reported having a recent fall prior to coming to the hospital and has an abrasion on the right knee. Pt stated that he has been having issues with rash bilaterally on the lower limbs. He displayed scabbed over areas that were reportedly from scratching. Pt reported having pain in toes bilaterally and exhibited redness at multiple nail beds.
[2020-04-25] MEDS: QUEtiapine Fumarate 200 MG TABLET PO (23:42)
[2020-04-25] MEDS: Benztropine Mesylate 1 MG TABLET PO (23:42)
[2020-04-25] MEDS: Mirtazapine 15 MG TABLET PO (23:42)
[2020-04-26] MEDS: traZODone HCL 50 MG TABLET PO (03:16)
[2020-04-26] MEDS: hydrOXYzine HCL 25 MG TABLET PO (03:17)
[2020-04-26 03:20] VITALS: BP 133/89; PULSE 80; RESP 16; TEMP 36.7; O2SAT 99
[2020-04-26] MEDS: Sertraline HCL 50 MG TABLET PO (08:15)
[2020-04-26] MEDS: Buprenorphine/Naloxone 8/2 mg FILM 1 FILM SUBLINGUAL ×2 (08:16→20:14)
[2020-04-26] MEDS: Acetaminophen 325 MG TABLET 650 MG PO (10:50)
--- NOTE | 2020-04-26 12:15 | P.HPPS_ITS ---
HPI Chief Complaint: PSYCHOSIS Sources of Information: patient interviewed, chart reviewed and crisis/core team assessment reviewed Additional Sources of Information: Past medical records at [facility]. Patient is well known to them 5 staff HPI Subjective Notes: 3 Day Narrative: This is a 59-year-old gentleman who is well known to psychiatric services here. Patient presented on 04/22/2020 after he was found by EMS screaming in front of the [facility] [place]. He had used cocaine and heroin a few hours prior. In the emergency room he was disorganized and psychotic and needed olanzapine 10 mg IM. He was then noticed to be disoriented. He also reported suicidal ideation with a plan to overdose. This is 1 of similar presentations in the past where patient presents with confusion psychotic symptoms and cognitive dysfunction. He has poor follow through with recommended treatments. Abstinence from substances has been nail. Patient also has history of cognitive dysfunction due to the HIV. 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 Will get med medical consultation Family History: Patient's sister is his legal guardian. Patient has a motor coach tour operator named Keon Choi is. Patient's sister Tamy Shepard is his legal guardian Social History: Chronically homeless Substance History: Extensive substance use with cocaine heroin and marijuana. Trauma History: Yes Diagnostics Vital Signs (24Hr): Vital Signs - 24 hr 04/25/20 17:52 04/26/20 03:20 Temperature 97.8 F 98.1 F Pulse Rate 87 80 Respiratory Rate 18 16 Blood Pressure 121/88 133/89 Pulse Oximetry 98 99 Body Mass Index 25.8 Labs Results: 04/22/20 18:49 04/22/20 18:49 Meds/Allergies Meds Home Medications Acetaminophen (Acetaminophen 325 Mg Tablet) 650 mg PO Q6H PRN PRN Reason: Headache/Pain Mild Scale (1-3) Last Admin: 04/26/20 10:50 Dose: 650 mg Documented by: Al Hydroxide/Mg Hydroxide (Magnesium Hydrox/Alum Hydrox 30 Ml Oral.Susp) 30 ml PO Q6H PRN PRN Reason: Heartburn/Nausea Benztropine Mesylate (Benztropine Mesylate 1 Mg Tablet) 1 mg PO BEDTIME [facility] Last Admin: 04/25/20 23:47 Dose: Not Given Documented by: Bictegravir/Emtricitabine/Tenofovir (Bictegrav/Emtricit/Tenofov Ala 1 Tab Tablet) 1 tab PO BEDTIME [facility] Last Admin: 04/25/20 23:42 Dose: 1 tab Documented by: Buprenorphine/Naloxone (Buprenorphine/Naloxone 8/2 Mg Film) 1 film SUBLINGUAL BID [facility] Last Admin: 04/26/20 08:16 Dose: 1 film Documented by: Hydroxyzine HCl (Hydroxyzine Hcl 25 Mg Tablet) 25 mg PO BEDTIME PRN PRN Reason: Anxiety Last Admin: 04/26/20 03:17 Dose: 25 mg Documented by: Magnesium Hydroxide (Milk Of Magnesia 30 Ml Oral.Susp) 30 ml PO DAILY PRN PRN Reason: Constipation Mirtazapine (Mirtazapine 15 Mg Tablet) 15 mg PO BEDTIME [facility] Last Admin: 04/25/20 23:47 Dose: Not Given Documented by: Quetiapine Fumarate (Quetiapine Fumarate 200 Mg Tablet) 200 mg PO BEDTIME [facility] Last Admin: 04/25/20 23:48 Dose: Not Given Documented by: Sertraline HCl (Sertraline Hcl 50 Mg Tablet) 50 mg PO DAILY [facility] Last Admin: 04/26/20 08:15 Dose: 50 mg Documented by: Trazodone HCl (Trazodone Hcl 50 Mg Tablet) 50 mg PO BEDTIME PRN PRN Reason: Insomnia Last Admin: 04/26/20 03:16 Dose: 50 mg Documented by: Trimethoprim/Sulfamethoxazole (Sulfamethox/Trimeth 400/80 1 Tab Tablet) 1 tab PO DAILY [facility] Last Admin: 04/26/20 08:15 Dose: 1 tab Documented by: Allergies Allergies Allergy/AdvReac Type Severity Reaction Status Date / Time No Known Allergies Allergy Mild NO REACTION Unverified 11/01/19 16:50 Mental Status Exam Mental Status Exam Patient Appearance: Disheveled and Unkempt Patient Orientation: Person, Place, Time and Situation Level of Consciousness: Awake and Restless Patient Behavior: Appropriate and Avoidant Mood Description: Calm and Constricted Affect Description: Withdrawn Ability to Follow Directions: Fair Speech Pattern: Slurred, Impoverished and Difficulty Finding Words Memory Description: Episodic Impaired and Semantic Impaired Hallucinations: None Delusions: Not Present Thought Process: Distracted Thought Content: positive for Suicidal Ideation Depressive Symptoms: Diff. Making Decisions Abnormal Motor Activity Signs and Symptoms: Agitation and Restlessness Judgement: Poor Assessment & Plan Assessment & Plan (1) Schizoaffective disorder: Status: Acute Qualifiers: Schizoaffective disorder type: unspecified Qualified Code(s): F25.9 - Schizoaffective disorder, unspecified Code(s): F25.9 - Schizoaffective disorder, unspecified (2) HIV (human immunodeficiency virus infection): Status: Acute Code(s): B20 - Human immunodeficiency virus [HIV] disease (3) Cocaine use disorder, severe, dependence: Status: Acute Code(s): F14.20 - Cocaine dependence, uncomplicated (4) Opioid use disorder, severe, in early remission, on maintenance therapy, dependence: Status: Acute Code(s): F11.21 - Opioid dependence, in remission (5) Polysubstance abuse: Status: Acute Code(s): F19.10 - Other psychoactive substance abuse, uncomplicated Assessment and Plan: Q 15 minutes checks conditional voluntary. As is typical patient has promptly signed a 3 day notice and would like to leave by Tuesday. Continue outpatient medications. Get collateral from motor coach tour operator in community providers and supports. Patient educated on: diagnosis Informed Consent: does not understand Reason for continued inpatient stay Substantial Risk for: harm to self, inability to function, rapid decompensation and med/psych decompensation
[2020-04-26 16:27] VITALS: BP 101/64; PULSE 97; TEMP 36.5; O2SAT 100
[2020-04-26 20:12] VITALS: BP 106/75; PULSE 93; TEMP 36; O2SAT 99
[2020-04-26] MEDS: Mirtazapine 15 MG TABLET PO (20:14)
[2020-04-26] MEDS: QUEtiapine Fumarate 200 MG TABLET PO (20:14)
[2020-04-26] MEDS: Benztropine Mesylate 1 MG TABLET PO (20:14)
[2020-04-27 06:25] VITALS: PULSE 68; TEMP 36.4; O2SAT 97
[2020-04-27] MEDS: Buprenorphine/Naloxone 8/2 mg FILM 1 FILM SUBLINGUAL ×2 (08:39→20:05)
[2020-04-27] MEDS: Sertraline HCL 50 MG TABLET PO (08:39)
--- NOTE | 2020-04-27 12:53 | P.EN_ITS ---
Event Note Date of Service: 04/27/20 Event Note: Called to see 59 year old male with history of HIV/AIDS, HCV, subs tance abuse, schizoaffective disorder admitted to [facility]. Concern over redness of toes and foot pain. Patient reporting chronic foot pain, chronic pruritis b/l lower legs with frequent scratching. A/P Callus right great toe Chronic skin changes likely due to vascular insufficiency/dermatitis/excoriation No signs of acute infection. -Kenalog cream for b/l lower legs -podiatry evaluation as outpatient. Thank you for allowing us to participate in the care of this patient.
[2020-04-27] MEDS: Acetaminophen 325 MG TABLET 650 MG PO (13:47)
[2020-04-27] MEDS: Triamcinolone Acet 0.1 % Cream 15 GM TUBE 1 APPL TOPICAL (14:39)
--- NOTE | 2020-04-27 17:02 | P.PNPSI_ITS ---
Subjective Subjective Date of Service: 04/27/20 Reason For Visit: PSYCHOSIS Subjective Notes: 3 Day Interim History: patient reports feeling much improved. Patient interacting with peers. States he has no suicidality and thoughts of harming others denies all symptoms wants to leave as soon as possible. This is similar to early presentations Medication Compliance: Yes Side effects from medications: No Attending Groups: Yes Mental Status Exam Mental Status Exam Patient Appearance: Well Grooomed Level of Consciousness: Awake, Appropriate, Drowsy, Sedated, Disoriented, Restless, Obtunded, Alert, Follows Commands, Lethargic, Inappropriate, Combative and Comatose Patient Behavior: Appropriate Mood Description: Calm Ability to Follow Directions: Excellent Speech Pattern: Clear and Soft-Spoken Memory Description: [employer] Impaired and Working Impaired Hallucinations: None Thought Process: Intact Thought Content: positive for Suicidal Ideation ( denies) Abnormal Motor Activity Signs and Symptoms: Restlessness Judgement: Poor Diagnostics Vital Signs (24Hr): Vital Signs - 24 hr 04/26/20 16:27 04/26/20 20:12 04/27/20 06:25 Temperature 97.7 F 96.8 F 97.6 F Pulse Rate 97 93 68 Blood Pressure 101/64 106/75 Pulse Oximetry 100 99 97 Body Mass Index 25.8 Labs Results: 04/22/20 18:49 04/22/20 18:49 Medications Medications Current Medications Generic Name Dose Route Start Last Admin Trade Name Freq PRN Reason Stop Dose Admin Acetaminophen 650 mg 04/25/20 15:17 04/27/20 13:47 Acetaminophen 325 Mg Tablet PO 650 mg Q6H PRN Administration Headache/Pain Mild Scale (1-3) Al Hydroxide/Mg Hydroxide 30 ml 04/25/20 15:17 Magnesium Hydrox/Alum Hydrox 30 Ml Oral.Susp PO Q6H PRN Heartburn/Nausea Benztropine Mesylate 1 mg 04/25/20 21:00 04/26/20 20:14 Benztropine Mesylate 1 Mg Tablet PO 1 mg BEDTIME [facility] Administration Bictegravir/Emtricitabine/Tenofovir 1 tab 04/25/20 21:00 04/26/20 20:14 Bictegrav/Emtricit/Tenofov Ala 1 Tab Tablet PO 1 tab BEDTIME [facility] Administration Buprenorphine/Naloxone 1 film 04/26/20 09:00 04/27/20 08:39 Buprenorphine/Naloxone 8/2 Mg Film SUBLINGUAL 1 film BID [facility] Administration Hydroxyzine HCl 25 mg 04/25/20 21:00 04/26/20 03:17 Hydroxyzine Hcl 25 Mg Tablet PO 25 mg BEDTIME PRN Administration Anxiety Magnesium Hydroxide 30 ml 04/25/20 15:17 Milk Of Magnesia 30 Ml Oral.Susp PO DAILY PRN Constipation Mirtazapine 15 mg 04/25/20 21:00 04/26/20 20:14 Mirtazapine 15 Mg Tablet PO 15 mg BEDTIME [facility] Administration Multi-Ingred Cream/Lotion/Oil/Oint 1 appl 04/27/20 21:00 Mineral Oil/Petrolatum,White 106 Gm Tube TOPICAL BEDTIME [facility] Quetiapine Fumarate 200 mg 04/25/20 21:00 04/26/20 20:14 Quetiapine Fumarate 200 Mg Tablet PO 200 mg BEDTIME [facility] Administration Sertraline HCl 50 mg 04/26/20 09:00 04/27/20 08:39 Sertraline Hcl 50 Mg Tablet PO 50 mg DAILY [facility] Administration Trazodone HCl 50 mg 04/25/20 21:00 04/26/20 03:16 Trazodone Hcl 50 Mg Tablet PO 50 mg BEDTIME PRN Administration Insomnia Triamcinolone Acetonide 1 appl 04/27/20 13:15 04/27/20 14:39 Triamcinolone Acet 0.1 % Cream 15 Gm Tube TOPICAL 1 appl DAILY [facility] Administration Protocol Trimethoprim/Sulfamethoxazole 1 tab 04/26/20 09:00 04/27/20 08:39 Sulfamethox/Trimeth 400/80 1 Tab Tablet PO 1 tab DAILY [facility] Administration Allergies Allergies Allergy/AdvReac Type Severity Reaction Status Date / Time No Known Allergies Allergy Mild NO REACTION Unverified 11/01/19 16:50 Assessment & Plan Greater than 50% of the session was spent on counseling and/or coordination of care continue treatment plan and medications as prescribed. Reason for contiued inpatient stay Substantial Risk for: harm to self
[2020-04-27 18:00] VITALS: BP 107/70; PULSE 83; RESP 16; TEMP 36.5; O2SAT 98
[2020-04-27] MEDS: Benztropine Mesylate 1 MG TABLET PO (20:05)
[2020-04-27] MEDS: QUEtiapine Fumarate 200 MG TABLET PO (21:17)
[2020-04-27] MEDS: Mirtazapine 15 MG TABLET PO (21:17)
[2020-04-27] MEDS: Mineral Oil/Petrolatum,White 106 GM Tube 1 APPL TOPICAL (21:17)
[2020-04-28 06:25] VITALS: BP 104/66; PULSE 72; RESP 16; TEMP 36.3; O2SAT 95
[2020-04-28] MEDS: Buprenorphine/Naloxone 8/2 mg FILM 1 FILM SUBLINGUAL ×2 (08:35→21:52)
[2020-04-28] MEDS: Sertraline HCL 50 MG TABLET PO (08:35)
[2020-04-28] MEDS: Mineral Oil/Petrolatum,White 106 GM Tube 1 APPL TOPICAL ×2 (13:33→21:52)
[2020-04-28] MEDS: Nicotine 14 MG PATCH.TD24 TRANSDERMA (13:33)
[2020-04-28 16:57] VITALS: BP 110/68; PULSE 97; TEMP 36.8
--- NOTE | 2020-04-28 18:55 | HO.PSYCHPN ---
Subjective Subjective Date of Service: 04/28/20 Reason For Visit: PSYCHOSIS Subjective Notes: Conditional Voluntary Interim History: Pt seen with PA student Cheryl. Pt reports feeling better in that he is less depressed. He also reports hearing less voices. He reports sleep is fair. He denies SI/HI. He minimizes substance use and its effect on mood. He has been visible in the unit. No behavioral concerns. Medication Compliance: Yes Side effects from medications: No Attending Groups: Intermittent Review of Systems Cardiovascular: Denies chest pain, Denies rapid heart rate, Denies lightheadedness and Denies dyspnea Respiratory: Denies dyspnea Gastrointestinal: Denies constipation and Denies diarrhea Mental Status Exam Mental Status Exam Narrative: Appearance: casually groomed, thin male appears much older than stated age, chorea like movements, in NAD Behavior: cooperative Psychomotor: chorea like movement, ataxic gait. Speech: mumbles at times, regular rate/rhythm, soft tone, spontaneous TP: tangential TC: no overt signs of psychosis, feeling better Mood: better Affect: brighter, non labile AH/VH: reports less AH. Delusions: none SI: denies HI: denies Insight/judgment: poor x 2. 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> Diagnostics Vital Signs (24Hr): Vital Signs - 24 hr 04/28/20 06:25 Temperature 97.4 F Pulse Rate 72 Respiratory Rate 16 Blood Pressure 104/66 Pulse Oximetry 95 Body Mass Index 25.8 Labs Results: 04/22/20 18:49 04/22/20 18:49 Medications Medications Current Medications Generic Name Dose Route Start Last Admin Trade Name Freq PRN Reason Stop Dose Admin Acetaminophen 650 mg 04/25/20 15:17 04/27/20 13:47 Acetaminophen 325 Mg Tablet PO 650 mg Q6H PRN Administration Headache/Pain Mild Scale (1-3) Al Hydroxide/Mg Hydroxide 30 ml 04/25/20 15:17 Magnesium Hydrox/Alum Hydrox 30 Ml Oral.Susp PO Q6H PRN Heartburn/Nausea Benztropine Mesylate 1 mg 04/25/20 21:00 04/27/20 20:05 Benztropine Mesylate 1 Mg Tablet PO 1 mg BEDTIME VICENTE Administration Bictegravir/Emtricitabine/Tenofovir 1 tab 04/25/20 21:00 04/27/20 20:05 Bictegrav/Emtricit/Tenofov Ala 1 Tab Tablet PO 1 tab BEDTIME VICENTE Administration Buprenorphine/Naloxone 1 film 04/26/20 09:00 04/28/20 08:35 Buprenorphine/Naloxone 8/2 Mg Film SUBLINGUAL 1 film BID VICENTE Administration Hydroxyzine HCl 25 mg 04/25/20 21:00 04/26/20 03:17 Hydroxyzine Hcl 25 Mg Tablet PO 25 mg BEDTIME PRN Administration Anxiety Magnesium Hydroxide 30 ml 04/25/20 15:17 Milk Of Magnesia 30 Ml Oral.Susp PO DAILY PRN Constipation Mirtazapine 15 mg 04/25/20 21:00 04/27/20 21:17 Mirtazapine 15 Mg Tablet PO 15 mg BEDTIME VICENTE Administration Multi-Ingred Cream/Lotion/Oil/Oint 1 appl 04/27/20 21:00 04/28/20 13:33 Mineral Oil/Petrolatum,White 106 Gm Tube TOPICAL 1 appl BEDTIME VICENTE Administration Nicotine 14 mg 04/28/20 11:15 04/28/20 13:33 Nicotine 14 Mg Patch.Td24 TRANSDERMA 14 mg DAILY VICENTE Administration Quetiapine Fumarate 200 mg 04/25/20 21:00 04/27/20 21:17 Quetiapine Fumarate 200 Mg Tablet PO 200 mg BEDTIME VICENTE Administration Sertraline HCl 50 mg 04/26/20 09:00 04/28/20 08:35 Sertraline Hcl 50 Mg Tablet PO 50 mg DAILY VICENTE Administration Trazodone HCl 50 mg 04/25/20 21:00 04/26/20 03:16 Trazodone Hcl 50 Mg Tablet PO 50 mg BEDTIME PRN Administration Insomnia Triamcinolone Acetonide 1 appl 04/27/20 13:15 04/28/20 16:21 Triamcinolone Acet 0.1 % Cream 15 Gm Tube TOPICAL Not Given DAILY VICENTE Protocol Trimethoprim/Sulfamethoxazole 1 tab 04/26/20 09:00 04/28/20 08:35 Sulfamethox/Trimeth 400/80 1 Tab Tablet PO 1 tab DAILY VICENTE Administration Allergies Allergies Allergy/AdvReac Type Severity Reaction Status Date / Time No Known Allergies Allergy Mild NO REACTION Unverified 11/01/19 16:50 Assessment & Plan Assessment & Plan (1) Schizoaffective disorder: Qualifiers: Schizoaffective disorder type: unspecified Qualified Code(s): F25.9 - Schizoaffective disorder, unspecified Status: Acute Code(s): F25.9 - Schizoaffective disorder, unspecified Assessment and Plan: continue current medications. (2) HIV (human immunodeficiency virus infection): Status: Acute Code(s): B20 - Human immunodeficiency virus [HIV] disease (3) Cocaine use disorder, severe, dependence: Status: Acute Code(s): F14.20 - Cocaine dependence, uncomplicated (4) Opioid use disorder, severe, in early remission, on maintenance therapy, dependence: Status: Acute Code(s): F11.21 - Opioid dependence, in remission Greater than 50% of the session was spent on counseling and/or coordination of care Reason for contiued inpatient stay Substantial Risk for: harm to self
[2020-04-28] MEDS: Mirtazapine 15 MG TABLET PO (21:52)
[2020-04-28] MEDS: QUEtiapine Fumarate 200 MG TABLET PO (21:52)
[2020-04-28] MEDS: Benztropine Mesylate 1 MG TABLET PO (21:52)
[2020-04-28] MEDS: Acetaminophen 325 MG TABLET 650 MG PO (23:43)
--- NOTE | 2020-04-29 04:49 | PC.ADMIT ---
Patient is a 42 y.o Polish speaking male admitted to [facility] at around 2300 on 04/28/20 prior to the third shift started. Patient was brought to the ED on 04/18/20 to [facility] ED via ambulance from his outpatient therapist's office after patient made threats to harm himself and SI with plan to slit my wrists with a knife or jump off a bridge. Patient denied SI/ HI/AH/VH on admission and contracted for safely on admission done at around 0400 in on 04/29/20. However patient reports that SI brought him to the hospital. Patient also reports of past hx of suicide attempts in the past. Patient reports has hx of substance abuse and currently having legal issue with unknown court day related to drugs and being homeless at this present time.Patient goals/plans were to get better and able to get his housing back. Hx of multiple pyschiatric inpatient admissions and 7 times being admitted to detox facilities. Patient was tested + for opiates, phencyclidine, cocaine, ETOH, and MJ with daily IV drug use per patient on admission. Patient exhibits no Ss&Ss of w/d from opiates or ETOH. Medical hx: DM II, high cholesterol, HTN, Hep C, neuropathy/chronic pain. Psych hx :schizophrenia, LEELA, SUDs. Patient was calm, cooperative, and pleasant on admission. BP slightly elevated 134/76 and HR increase 104 , temp 97.2. Admission is completed, continue with regime transferred from the ED as patient has been admitted to the ED since 04/18/20. Covid 19 + which is past 10 days quarantine per CDC and RN GYN who admitted patient is aware.
[2020-04-29 06:25] VITALS: BP 137/79; PULSE 68; RESP 18; TEMP 36.1; O2SAT 96
[2020-04-29] MEDS: Buprenorphine/Naloxone 8/2 mg FILM 1 FILM SUBLINGUAL ×2 (08:36→20:07)
[2020-04-29] MEDS: Sertraline HCL 50 MG TABLET PO (08:36)
[2020-04-29 17:30] VITALS: BP 127/78; PULSE 89; TEMP 36.1
[2020-04-29] MEDS: QUEtiapine Fumarate 200 MG TABLET PO (20:07)
[2020-04-29] MEDS: Mirtazapine 15 MG TABLET PO (20:07)
[2020-04-29] MEDS: Benztropine Mesylate 1 MG TABLET PO (20:07)
[2020-04-29] MEDS: Mineral Oil/Petrolatum,White 106 GM Tube 1 APPL TOPICAL (20:08)
[2020-04-30] MEDS: traZODone HCL 50 MG TABLET PO (00:03)
[2020-04-30] MEDS: hydrOXYzine HCL 25 MG TABLET PO (00:03)
[2020-04-30 06:30] VITALS: BP 115/70; PULSE 77; RESP 18; TEMP 36.6; O2SAT 98
[2020-04-30] MEDS: Sertraline HCL 50 MG TABLET PO (08:54)
[2020-04-30] MEDS: Buprenorphine/Naloxone 8/2 mg FILM 1 FILM SUBLINGUAL (08:55)
--- NOTE | 2020-05-23 15:23 | PM.PSYDC ---
DS: Providers Provider Date of Service: 05/23/20 Date of admission: 04/25/20 21:22 Primary care physician: [facility] Consults: 04/26/20 18:12 Consult to Hospitalist Routine Consulting Provider: Hospitalist Reason For Exam: Pt has severe infection sub ungal. Hx HIV + DS: Diagnosis Discharge Diagnosis (1) Schizoaffective disorder: Status: Acute (2) HIV (human immunodeficiency virus infection): Status: Acute (3) Cocaine use disorder, severe, dependence: Status: Acute (4) Opioid use disorder, severe, in early remission, on maintenance therapy, dependence: Status: Acute DS: Medications Discharge Medications Home Medications: Home Medications Medication Instructions Recorded Confirmed Biktarvy 1 tab PO BEDTIME 04/24/20 05/20/20 benztropine 1 mg PO BEDTIME 04/25/20 05/20/20 sulfamethoxazole-trimethoprim 1 tab PO DAILY 04/25/20 05/20/20 [Bactrim] buprenorphine-naloxone [Suboxone] 1 strip SUBLINGUAL BID 05/19/20 05/19/20 Previous Rx's Medication Instructions Recorded mirtazapine 15 mg PO BEDTIME 30 Days #30 tab 04/30/20 quetiapine [Seroquel] 200 mg PO BEDTIME 30 Days #0 tab 04/30/20 sertraline 50 mg PO DAILY 30 Days #0 tab 04/30/20 cephalexin 500 mg PO BID 10 Days #20 cap 05/21/20 doxycycline monohydrate 100 mg PO BID 10 Days #20 cap 05/21/20 Discharge Plan Discharge Patient Disposition: Home, Self-Care Referrals: Learning Support Aide: Brittani ([facility] [Other] Center,[facility] [Primary Care Provider] - Carlyn Mcgowan MD [Physician] - 04/30/20 9:30 am (Telehealth for Suboxone ) Discharge Medications: Continued Biktarvy 50-200-25 mg tablet 1 tab PO BEDTIME RF: 0 sulfamethoxazole-trimethoprim [Bactrim] 400-80 mg Tablet 1 tab PO DAILY RF: 0 benztropine 1 mg Tablet 1 mg PO BEDTIME RF: 0 quetiapine [Seroquel] 200 mg tablet 200 mg PO BEDTIME 30 Days Qty: 0 RF: 0 mirtazapine 15 mg Tablet 15 mg PO BEDTIME 30 Days Qty: 30 RF: 0 sertraline 50 mg Tablet 50 mg PO DAILY 30 Days Qty: 0 RF: 0 No Action buprenorphine-naloxone [Suboxone] 8-2 mg film 1 strip sublingual BID RF: 0 doxycycline monohydrate 100 mg capsule 100 mg PO BID 10 Days Qty: 20 RF: 0 cephalexin 500 mg capsule 500 mg PO BID 10 Days Qty: 20 RF: 0 Discharge Orders: Discharge Order (Routine); Ordered 04/30/20 Ordered By: Cate Fernando Diet: regular diet Activity on Discharge: As tolerated Stand Alone Forms: Patient Portal Discharge page, Community Support Care Plan Goals: 1. Follow up with referrals Health Concerns: 1. Follow up with PCP Plan of Treatment: 1. Follow up with referrals Assessment: stable Discharge Date/Time: 04/30/20 13:00 Mental Status Exam Mental Status Exam Narrative: Appearance: casually groomed, thin male appears much older than stated age, chorea like movements, in NAD Behavior: cooperative Psychomotor: chorea like movement, ataxic gait. Speech: mumbles at times, regular rate/rhythm, soft tone, spontaneous TP: tangential TC: no overt signs of psychosis, feeling better Mood: better Affect: brighter, non labile AH/VH: reports less AH. Delusions: none SI: denies HI: denies Insight/judgment: poor x 2. 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 Patient presented on 04/22/2020 after he was found by EMS screaming in front of the [facility]. He had used cocaine and heroin a few hours prior. In the emergency room he was disorganized and psychotic and needed olanzapine 10 mg IM. He was then noticed to be disoriented. He also reported suicidal ideation with a plan to overdose. This is 1 of similar presentations in the past where patient presents with confusion psychotic symptoms and cognitive dysfunction. He has poor follow through with recommended treatments. Abstinence from substances has been nail. Patient also has history of cognitive dysfunction due to the HIV. HOSPITAL COURSE On the unit, Mr. Shepard was placed on 15 minutes checks for safety. He reported AH, depressed mood and passive SI. After discussing risks, benefits and alternative treatment options, pt agreed to restart Olanzapine. His affect gradually brighten. He reported decreased AH/VH. He quickly asked for discharged as he did not think he would longer benefit from inpatient admission. His mood was euthymic without signs of psychosis. He was sleeping and eating well. He denied SI/HI. There were no incidences of disruptive behaviors nor use of restraints. He minimizes substance use on mood. Time spent discussing smoking cessation with patient: more than 10 minutes Status at Discharge Cognitive/behavioral status at discharge: Pt reports decreased symptoms of depression. He denies VH/AH. He denied SI/HI. No signs of aggression towards self or others. Functional status at discharge: independent ambulation Overall status at discharge: patient is back to baseline Time Spent with Patient Time attestation: Total time spent providing and/or coordinating discharge services:
== END 2020-04-30 13:00 | disposition home or self-care (01) | DRG 750 ==
LOC: HO.ED 04-23 21:08 → HO.PM5 04-25 21:30
PROVIDERS: Emergency Medicine; Physician Assistant; Admitting Provider Psychiatry & Neurology Psychiatry; Emergency Provider Emergency Medicine Emergency Medical Services; Visit Provider Social Worker
DX: F20.9 Schizophrenia, unspecified (principal); R45.851 Suicidal ideations; F14.20 Cocaine dependence, uncomplicated; Z21 Asymptomatic human immunodeficiency virus [HIV] infection status; I87.2 Venous insufficiency (chronic) (peripheral); F10.20 Alcohol dependence, uncomplicated; F17.210 Nicotine dependence, cigarettes, uncomplicated; Z71.6 Tobacco abuse counseling; Z20.822 Contact with and (suspected) exposure to COVID-19; Z79.899 Other long term (current) drug therapy
CPT/HCPCS: 36415; 80048; 80143; 80179; 80307; 80320; 81001; 83690; 83735; 85007; 85025; 85027; 87635; 93005; 99285

== ENCOUNTER 2020-05-17 06:15 | Emergency (ER) | payer MEDICAID, SELFPAY ==
[2020-05-17 06:22] VITALS: BP 104/65; BP 126/72; PULSE 84; PULSE 85; RESP 18; TEMP 36.3; O2SAT 96; O2SAT 99; BMI 26.6
[2020-05-17 06:45] VITALS: BP 104/65; PULSE 85; RESP 18; TEMP 36.3; O2SAT 96
--- NOTE | 2020-05-17 06:53 | ED_ITS ---
HPI - Psych General Chief Complaint: Psychiatric Symptoms Stated Complaint: si Time Seen by Provider: 05/17/20 06:46 History of Present Illness HPI Narrative: This is a 59 years old male frequent utilizer of the emergency department presented to the ED with a chief complaint of SI and auditory hallucination. He has history of polysubstance abuse, he has history of schizophrenia. MD complaint: suicidal ideation Onset (ago): hour(s) (4) Duration: constant History of same: Yes Exacerbating factors: none Related Data Home Medications Medication Instructions Recorded Confirmed Biktarvy 1 tab PO BEDTIME 04/24/20 04/25/20 buprenorphine-naloxone [Suboxone] 1 strip SUBLINGUAL BID 04/24/20 04/24/20 benztropine 1 mg PO BEDTIME 04/25/20 04/25/20 sulfamethoxazole-trimethoprim 1 tab PO DAILY 04/25/20 04/25/20 [Bactrim] Previous Rx's Medication Instructions Recorded mirtazapine 15 mg PO BEDTIME 30 Days #30 tab 04/30/20 nicotine 14 mg TRANSDERMAL DAILY 30 Days 04/30/20 #30 ea quetiapine [Seroquel] 200 mg PO BEDTIME 30 Days #0 tab 04/30/20 sertraline 50 mg PO DAILY 30 Days #0 tab 04/30/20 triamcinolone acetonide 1 appl TOPICAL DAILY 30 Days #30 g 04/30/20 Allergies Allergy/AdvReac Type Severity Reaction Status Date / Time No Known Allergies Allergy Mild NO REACTION Unverified 11/01/19 16:50 Review of Systems Review of Systems: Yes all other systems are reviewed and are negative Eyes: Eyes: Denies diplopia ENT: Denies dysphagia Cardiovascular: Cardiovascular: Denies irregular heart rhythm, Denies lightheadedness, Denies Loss of Consciousness and Denies dyspnea Respiratory: Respiratory: Denies dyspnea Gastrointestinal: Gastrointestinal: Denies abdominal pain, Denies change in stool character and Denies dysphagia Genitourinary: Genitourinary: Reports no additional male genitourinary complaints Musculoskeletal: Musculoskeletal: Denies abnormal gait Neurologic: Reports system reviewed and no additional complaints, except as documented, Denies Abnormal speech present and Denies abnormal gait Psychiatric: Psychiatric: Reports no additional psychiatric complaints and Reports as per HPI [facility] Past Medical History Attestation statement: The following information was validated with the patient. Medical History AIDS Asthma Cocaine use disorder, severe, dependence Depression Hepatitis C HIV (human immunodeficiency virus infection) Opioid dependence Opioid use disorder, severe, in early remission, on maintenance therapy, dependence Schizoaffective disorder Tardive dyskinesia Social History Social History Household Members: Other Housing: Assisted Living Facility Alcohol intake: former Smoking Status: Current every day smoker Tobacco Type: Cigarette Packs Per Day: 0.5 Cigarettes Per Day: 10.0 Years Smoked: Since age 10 Smoked in Last 30 Days: Yes Second Hand Smoke Exposure: Yes Use of substances other than those prescribed or required for medical reasons: Yes Substance Use Type: Heroin Substance Use Frequency: Chronic Longstanding Last Used Substance: Hours (ago) Any prior treatment program specific to substance use: Yes Advance Directives: Yes Advance Directives on File: Yes Advance Directives Date on File: 01/29/20 service: No Sexual orientation: N/A Physical Exam Vital Signs: Vital Signs: Last Vital Signs Temp 97.9 F 05/17/20 09:13 Pulse 78 05/17/20 09:13 Resp 18 05/17/20 09:13 BP 91/57 L 05/17/20 09:13 Pulse Ox 95 05/17/20 09:13 Body Mass Index 26.6 Const: Orientation/consciousness: oriented to person, oriented to place and oriented to time HENMT: Head: Yes normal to inspection Eyes: General: appearance normal, both eyes and all related structures Neck: Neck: Yes normal visual inspection, Yes full ROM and Yes no lymphadenopathy Chest: Chest palpation & inspection: normal inspection of the chest and normal palpation of entire chest wall Resp: Auscultation: clear to auscultation bilaterally Cardio: Rate: regular rate GI: Inspection: Yes normal to inspection Palpation (GI): Soft to palpation, nontender and no guarding Skin: General skin exam: no rashes or lesions noted Neuro: General: oriented to person, oriented to place and oriented to time Speech: No Abnormal speech present Extrem: General: Yes normal to inspection Course Reevaluation(s) Reevaluation #1: Case was signed out to that [facility] psych disposition pending Time: 16:39 [facility] - Psych Lab Data Labs: Lab Results 05/17/20 Range/Units 06:58 Urine Opiates Screen POSITIVE H (Not Detect) Ur Barbiturates Screen Not Detected (Not Detect) Ur Phencyclidine Scrn Not Detected (Not Detect) Ur Amphetamines Screen Not Detected (Not Detect) U Benzodiazepines Scrn Not Detected (Not Detect) Urine Cocaine Screen POSITIVE H (Not Detect) U Marijuana (THC) Screen Not Detected (Not Detect) Discharge Plan Discharge Clinical Impression: Cocaine use disorder, severe, dependence, Schizoaffective disorder Prescriptions: No Action buprenorphine-naloxone [Suboxone] 8-2 mg film 1 strip sublingual BID RF: 0 Biktarvy 50-200-25 mg tablet 1 tab PO BEDTIME RF: 0 sulfamethoxazole-trimethoprim [Bactrim] 400-80 mg Tablet 1 tab PO DAILY RF: 0 benztropine 1 mg Tablet 1 mg PO BEDTIME RF: 0 nicotine 14 mg/24 hr Patch 24 Hour 14 mg transdermal DAILY 30 Days Qty: 30 RF: 0 triamcinolone acetonide 0.1 % Cream 1 appl topical DAILY 30 Days Qty: 30 RF: 0 quetiapine [Seroquel] 200 mg tablet 200 mg PO BEDTIME 30 Days Qty: 0 RF: 0 mirtazapine 15 mg Tablet 15 mg PO BEDTIME 30 Days Qty: 30 RF: 0 sertraline 50 mg Tablet 50 mg PO DAILY 30 Days Qty: 0 RF: 0
--- NOTE | 2020-05-17 07:07 | PC.NURSE ---
Report received. Pt currently resting, calm and cooperative. PT to be seen by N.
[2020-05-17 07:30] LABS: Amphetamine Screen Urine Not Detected (Not Detect); Barbiturates, Urine Not Detected (Not Detect); Benzodiazepines Screen Urine Not Detected (Not Detect); Cannabinoid Screen Urine Not Detected (Not Detect); Cocaine Screen Urine POSITIVE (Not Detect); Opiate Screen Urine POSITIVE (Not Detect); Phencyclidine Screen Urine Not Detected (Not Detect)
--- NOTE | 2020-05-17 08:16 | PC.NURSE ---
[facility] faxed and called, verified with Chel[facility]
[2020-05-17 09:13] VITALS: BP 91/57; PULSE 78; RESP 18; TEMP 36.6; O2SAT 95
--- NOTE | 2020-05-17 09:18 | PC.NURSE ---
[facility] at bedside for eval.
[2020-05-17 18:00] VITALS: BP 110/73; PULSE 82; RESP 20; TEMP 36.6; O2SAT 95
--- NOTE | 2020-05-17 20:06 | PC.NURSE ---
Report received. PT is sleeping in bed. Respirations even and unlabored. PT needs ALISSA follow up in the morning.
[2020-05-18] MEDS: Mirtazapine 15 MG TABLET PO ×2 (00:13→20:55)
[2020-05-18 00:40] VITALS: BP 105/60; PULSE 91; RESP 16; TEMP 36.5; O2SAT 94
[2020-05-18 06:00] VITALS: RESP 16
--- NOTE | 2020-05-18 07:45 | PC.NURSE ---
Pt report received from Lacho GREEN, per medhat N to return for re-eval.
[2020-05-18 09:40] VITALS: BP 114/65; PULSE 83; RESP 16; TEMP 36.6; O2SAT 97
[2020-05-18] MEDS: Nicotine 14 MG PATCH.TD24 TRANSDERMA (09:59)
[2020-05-18] MEDS: Sertraline HCL 50 MG TABLET PO (10:00)
--- NOTE | 2020-05-18 11:59 | PC.NURSE ---
Pt is now a section 12, in patient bedsearch after [facility] re-eval
--- NOTE | 2020-05-18 15:01 | PC.NURSE ---
Report received. PT currently sitting in his room, calm and cooperative, denies complaints. PT is inpatient bedsearch.
[2020-05-18 15:53] LABS: Hematocrit 42.1 % (42-52); Mean Corpuscular HGB Conc 33.3 g/dl (31.0-36.0); Mean Corpuscular Hemoglobin 29.5 pg (27.0-33.0); Mean Corpuscular Volume 88.8 fL (80-98); Mean Platelet Volume 10.8 fL (9.4-12.4); Platelet Count 156 X10*3/uL (160-400); Red Blood Count 4.74 X10*6/uL (4.60-5.80); Red Cell Distribution Width 16.1 % (11.0-16.0)
[2020-05-18 15:58] LABS: WBC ABN SCTR FOR CBC 1
[2020-05-18 16:15] LABS: COVID-19 Test Negative (Negative); IDNOW Serial# 9DD0AD1C
[2020-05-18 16:21] LABS: Alanine Aminotransferase 38 U/L (0-40); Albumin Level 3.6 g/dL (3.5-5.0); Alkaline Phosphatase 100 U/L (39-117); Anion Gap 11 (12-20); Aspartate Amino Transferase 168 U/L (5-37); Bilirubin Total 0.6 mg/dL (0.0-1.0); Blood Urea Nitrogen 24 mg/dL (9-16); Carbon Dioxide 27 mmol/L (22-29); Chloride 105 mmol/L (96-108); Creatinine Clr Calc Pharmacy 84.3; Estimated Glomerular Filt Rate > 60; Glucose Random 110 mg/dL (60-115); Potassium 4.1 mmol/L (3.3-5.1); Sodium 139 mmol/L (135-145); Total Protein 7.2 g/dL (6.5-8.0)
[2020-05-18 16:22] LABS: White Blood Count 5.4 X10*3/uL (4.8-10.8)
[2020-05-18 16:23] LABS: Basophils Abs Manual 0.1 X10*3/uL (0.0-0.3); Basophils Percent Manual 2 % (0-1); Eosinophils Absolute Manual 0.1 X10*3/UL (0.0-0.8); Eosinophils Percent Manual 2 % (0-4); Lymphocytes Absolute Manual 0.8 X10*3/uL (0.6-4.8); Lymphocytes Percent Manual 15 % (20-40); Monocytes Absolute Manual 0.8 X10*3/uL (0.0-1.2); Monocytes Percent Manual 15 % (2-11); Neutrophils Absolute Manual 3.6 X10*3/uL (2.2-7.9); Neutrophils Percent Manual 66 % (45-73); Platelet Estimate NORMAL (NORMAL); Platelet Morphology Comment NOTED
[2020-05-18 16:24] LABS: Large Platelet PRESENT
[2020-05-18 16:26] LABS: Acanthocytes 1+ (0-2) /OIF; RBC Morphology NOTED
[2020-05-18 17:39] VITALS: BP 118/74; PULSE 76; RESP 19; TEMP 37.1; O2SAT 98
--- NOTE | 2020-05-18 19:24 | PC.NURSE ---
Report received. PT is using the shower. Calm and cooperative. PT is inpatient bed search.
[2020-05-19] VITALS (7 sets, daily range): BP systolic 100–135; BP diastolic 56–85; PULSE 73–91; RESP 16–18; TEMP 36.4–36.8; O2SAT 95–98
[2020-05-19] MEDS: cloNIDine HCL 0.1 MG TABLET PO (01:49)
--- NOTE | 2020-05-19 07:32 | PC.NURSE ---
Report received from NORMA Monk. Pt awake, eating breakfast. No concerns reported.
[2020-05-19] MEDS: Buprenorphine/Naloxone 8/2 mg FILM 1 FILM SUBLINGUAL ×2 (09:21→20:21)
[2020-05-19] MEDS: Nicotine 14 MG PATCH.TD24 TRANSDERMA (09:21)
[2020-05-19] MEDS: Sertraline HCL 50 MG TABLET PO (09:21)
--- NOTE | 2020-05-19 09:30 | PC.NURSE ---
Pt awakened for medications. Pt denies SI at this time, denies any symptoms, asking re: suboxone which was given as ordered.
--- NOTE | 2020-05-19 15:32 | PC.NURSE ---
Pt awake, alert, states he is feeling better. Pt showered, requested sandwich, given snack as requested.
--- NOTE | 2020-05-19 20:03 | PC.NURSE ---
Patient in bed resting quietly , no distress observed/reported, had pretty decent shift with behavioral control, will continue to monitor.
[2020-05-19] MEDS: Mirtazapine 15 MG TABLET PO (20:21)
--- NOTE | 2020-05-20 07:15 | PC.NURSE ---
Report received from NORMA Key. Pt awake, eating breakfast, requesting snack, states he is feeling all right, no concerns reported.
[2020-05-20 09:37] VITALS: BP 111/72; PULSE 80; RESP 17; TEMP 36.2; O2SAT 95
[2020-05-20] MEDS: Buprenorphine/Naloxone 8/2 mg FILM 1 FILM SUBLINGUAL ×2 (09:55→20:41)
[2020-05-20] MEDS: Nicotine 14 MG PATCH.TD24 TRANSDERMA (09:55)
[2020-05-20] MEDS: Sertraline HCL 50 MG TABLET PO (09:55)
[2020-05-20] MEDS: Lidocaine HCl 2 % MPF 5 ML VIAL SUBCUT (10:33)
--- NOTE | 2020-05-20 10:46 | PC.NURSE ---
Pt awake, alert. Pt denies SI. Pt requesting evaluation of red, raised area near left AC. Viraj Schwartz notified, in to evaluate, area I&R, packing and tegaderm in place. Pt reporting he may be discharged tomorrow, states depression is ongoing but denies SI.
--- NOTE | 2020-05-20 12:23 | PC.NURSE ---
Pt w/ questions re: medications. Provider notified, pharmacy notified.
[2020-05-20 14:00] VITALS: RESP 18
--- NOTE | 2020-05-20 15:56 | PC.NURSE ---
Pt reported packing fell out of open area left arm- provider notified, bacitracin and dressing applied as requested.
--- NOTE | 2020-05-20 16:09 | PC.NURSE ---
[facility] in w/ pt
[2020-05-20 17:24] VITALS: BP 115/73; PULSE 79; RESP 16; TEMP 36.6; O2SAT 98
--- NOTE | 2020-05-20 17:43 | PC.NURSE ---
Per [facility] clinician, pt is no longer a bedsearch, pt requesting to be discharged in the morning after being reconnected to suboxone clinic.
[2020-05-20] MEDS: Mirtazapine 15 MG TABLET PO (20:41)
[2020-05-21 00:13] VITALS: BP 135/75; PULSE 79; RESP 17; TEMP 36.5; O2SAT 98
[2020-05-21] MEDS: Sertraline HCL 50 MG TABLET PO (07:24)
[2020-05-21] MEDS: Nicotine 14 MG PATCH.TD24 TRANSDERMA (07:25)
[2020-05-21] MEDS: Buprenorphine/Naloxone 8/2 mg FILM 1 FILM SUBLINGUAL (07:25)
[2020-05-21 09:18] VITALS: BP 109/71; PULSE 79; RESP 18; TEMP 37.2; O2SAT 96
== END 2020-05-21 09:45 | disposition home or self-care (01) ==
PROVIDERS: Nurse Practitioner Family; Emergency Provider Emergency Medicine
DX: F14.20 Cocaine dependence, uncomplicated (principal); F11.20 Opioid dependence, uncomplicated; F20.9 Schizophrenia, unspecified; R45.851 Suicidal ideations; F06.0 Psychotic disorder with hallucinations due to known physiological condition; L02.414 Cutaneous abscess of left upper limb; Z20.822 Contact with and (suspected) exposure to COVID-19; B20 Human immunodeficiency virus [HIV] disease; J45.909 Unspecified asthma, uncomplicated; F32.9 Major depressive disorder, single episode, unspecified; G24.01 Drug induced subacute dyskinesia; Z86.19 Personal history of other infectious and parasitic diseases
CPT/HCPCS: 10060; 36415; 80053; 80307; 85007; 85027; 87635; 99285

== ENCOUNTER 2020-06-01 20:31 | Emergency (ER) | payer MEDICAID, SELFPAY ==
[2020-06-01 20:42] VITALS: BP 116/79; BP 140/85; PULSE 72; PULSE 75; RESP 18; TEMP 37.2; O2SAT 16; O2SAT 98; BMI 24.1
--- NOTE | 2020-06-01 21:21 | MHC.RECOVSUP ---
This communications writer spoke with said patient about his MAT medication per request from nurse.. Patient stated that he has not taken his Medication (suboxone) since yesterday. due to running out of meds. I informed nurse in charge..
--- NOTE | 2020-06-01 21:55 | ED_ITS ---
HPI - Psych General Chief Complaint: Psychiatric Symptoms Stated Complaint: crisis si Time Seen by Provider: 06/01/20 21:55 Source: patient and EMS Mode of arrival: EMS Limitations: no limitations History of Present Illness HPI Narrative: Patient history of depression schizoaffective disorder on Suboxone says that for last 2 days she could not get his Suboxone feel more depressed went to the police station with a brick in his hand saying that he wants to kill himself with brick patient mother few years ago and patient's son also committed suicide' patient been using cocaine , patient Section 12 by HPD Related Data Home Medications Medication Instructions Recorded Confirmed Biktarvy 1 tab PO BEDTIME 04/24/20 05/20/20 benztropine 1 mg PO BEDTIME 04/25/20 05/20/20 sulfamethoxazole-trimethoprim 1 tab PO DAILY 04/25/20 05/20/20 [Bactrim] buprenorphine-naloxone [Suboxone] 1 strip SUBLINGUAL BID 05/19/20 05/19/20 Previous Rx's Medication Instructions Recorded mirtazapine 15 mg PO BEDTIME 30 Days #30 tab 04/30/20 quetiapine [Seroquel] 200 mg PO BEDTIME 30 Days #0 tab 04/30/20 sertraline 50 mg PO DAILY 30 Days #0 tab 04/30/20 cephalexin 500 mg PO BID 10 Days #20 cap 05/21/20 doxycycline monohydrate 100 mg PO BID 10 Days #20 cap 05/21/20 Allergies Allergy/AdvReac Type Severity Reaction Status Date / Time No Known Allergies Allergy Mild NO REACTION Verified 06/01/20 20:45 Review of Systems Review of Systems: Constitutional : No Fever, No Chills ENT/Mouth : No Ear Pain, No Nasal Congestion, No sore throat Eyes: No Eye Pain, No Swelling, No Redness Cardiovascular : No Chest Pain, No SOB Respiratory : No Cough, No Sputum, No Dyspnea Gastrointestinal : No Nausea, No Vomiting, No Diarrhea, No Hematochezia, No Melena Genitourinary : No Dysuria, No Urinary Frequency, No Hematuria Musculoskeletal : No Myalgias Skin : No Skin Lesions, No rash Neuro : No Weakness, No Numbness, No Paresthesias, No Dizziness, No Headache Psych : positive Anxiety, positive Depression, positive SI Heme/Lymph: No Lymphadenopathy Endocrine : No Polyuria, No Polydipsia [facility] Past Medical History Medical History AIDS Asthma Cocaine use disorder, severe, dependence Depression Hepatitis C HIV (human immunodeficiency virus infection) Opioid dependence Opioid use disorder, severe, in early remission, on maintenance therapy, dependence Schizoaffective disorder Tardive dyskinesia Social History Social History Household Members: Other Housing: Assisted Living Facility Alcohol intake: unknown Smoking Status: Unknown if ever smoked Tobacco Type: Cigarette Packs Per Day: 0.5 Cigarettes Per Day: 10.0 Years Smoked: Since age 10 Second Hand Smoke Exposure: Yes Use of substances other than those prescribed or required for medical reasons: Unknown Substance Use Type: Heroin Advance Directives: Yes Advance Directives on File: Yes Advance Directives Date on File: 01/29/20 service: No Sexual orientation: N/A Physical Exam Vital Signs: Vital Signs: Last Vital Signs Temp 99.4 F 06/01/20 23:54 Pulse 78 06/01/20 23:54 Resp 18 06/01/20 23:54 BP 112/66 06/01/20 23:54 Pulse Ox 97 06/01/20 23:54 Body Mass Index 24.1 Appearance: Alert. Oriented X3. No acute distress. Eyes: Pupils equal, round and reactive to light. ENT: Pharynx normal. Neck: Normal inspection. Neck supple. CVS: Normal heart rate and rhythm. Pulses normal. Respiratory: No respiratory distress. Breath sounds normal. Abdomen: Soft and nontender. Bowel sounds are present, no mass palpable, no CVA tenderness Skin: Skin warm and dry. Normal skin color. Normal skin turgor. Extremities: No lower extremity edema. Psych: Feels depressed no current suicidal ideation no hallucination or delusion Neuro: Oriented X 3. No motor deficit. No sensory deficit. MDM - Psych MDM Narrative Medical decision making narrative: Patient with hx depression with suicidal ideation seen by crisis plan for inpatient bed search Differential Diagnosis Differential diagnosis: Likely suicidal ideation and depression Lab Data Attestation: I reviewed the patient's lab results. Labs: Lab Results 06/01/20 Range/Units 22:13 Urine Opiates Screen Not Detected (Not Detect) Ur Barbiturates Screen Not Detected (Not Detect) Ur Phencyclidine Scrn Not Detected (Not Detect) Ur Amphetamines Screen Not Detected (Not Detect) U Benzodiazepines Scrn Not Detected (Not Detect) Urine Cocaine Screen POSITIVE H (Not Detect) U Marijuana (THC) Screen Not Detected (Not Detect) Discharge Plan Discharge Prescriptions: No Action Biktarvy 50-200-25 mg tablet 1 tab PO BEDTIME RF: 0 sulfamethoxazole-trimethoprim [Bactrim] 400-80 mg Tablet 1 tab PO DAILY RF: 0 benztropine 1 mg Tablet 1 mg PO BEDTIME RF: 0 quetiapine [Seroquel] 200 mg tablet 200 mg PO BEDTIME 30 Days Qty: 0 RF: 0 mirtazapine 15 mg Tablet 15 mg PO BEDTIME 30 Days Qty: 30 RF: 0 sertraline 50 mg Tablet 50 mg PO DAILY 30 Days Qty: 0 RF: 0 buprenorphine-naloxone [Suboxone] 8-2 mg film 1 strip sublingual BID RF: 0 doxycycline monohydrate 100 mg capsule 100 mg PO BID 10 Days Qty: 20 RF: 0 cephalexin 500 mg capsule 500 mg PO BID 10 Days Qty: 20 RF: 0
--- NOTE | 2020-06-01 22:37 | MHC.CARE ---
CARE team consult requested for pt who was sent to ED for evaluation after walking into the [facility] holding a brick and endorsing suicidality. This production underwriter met with pt in ED 13H bed. Pt presented with profoundly depressed mood and soft speech that was difficult to understand at times. Pt made little eye contact and stared past this production underwriter while speaking. Pt reported that he continues to struggle with the deaths of his mother and son a few years ago, when his mother had unexpectedly and then his son, who was very close to his grandmother, completed suicide. Pt reported that he lives in [place] with a roommate, whom he describes as a great elizabet, and uses public transportation to get around. Pt receives all of his care through [facility]-- MAT, HIV care management, primary care, and counseling. Pt is firmly rooted in his rach and attends a [employer] that is two blocks from his home, where he also goes to AA meetings. Pt reported that he ran out of his doses of suboxone, which he picks up every Tuesday from [facility], and has been feeling physically terrible for the past day. Pt indicated that as being a contributing factor to why he wanted to come to the hospital. Pt has continued to endorse suicidal ideation with active plan and urge to act upon it (no firm intent stated) and is requesting to speak with [facility] crisis, as he has been struggling more with his mental health over the past several days. ED physician updated re: consult with pt and recommendation for BHN crisis evaluation.
--- NOTE | 2020-06-01 22:38 | PC.NURSE ---
Pt is calm and cooperative, requested and given sandwich and juice. Pt has flat affect, appears sad. Ambulates w/ steady gait, skin w/p/d, rr even and unlabored. Sitter at side. Aware and agreeable for CURTIS heller.
--- NOTE | 2020-06-01 22:47 | PC.NURSE ---
faxed to [facility]. pt moved into [facility]. report given to tommy grace
[2020-06-01 22:52] LABS: Amphetamine Screen Urine Not Detected (Not Detect); Barbiturates, Urine Not Detected (Not Detect); Benzodiazepines Screen Urine Not Detected (Not Detect); Cannabinoid Screen Urine Not Detected (Not Detect); Cocaine Screen Urine POSITIVE (Not Detect); Opiate Screen Urine Not Detected (Not Detect); Phencyclidine Screen Urine Not Detected (Not Detect)
--- NOTE | 2020-06-01 22:53 | PC.NURSE ---
Report received from NORMA Salgado. PT ambulated to pod with steady gait. Calm and cooperative. PT waiting to be seen by N for crisis consult.
--- NOTE | 2020-06-01 23:35 | PC.NURSE ---
[facility] faxed and called. CURTIS stated that someone would be here for a crisis evaluation later tonight.
[2020-06-01 23:54] VITALS: BP 112/66; PULSE 78; RESP 18; TEMP 37.4; O2SAT 97
[2020-06-02 01:47] LABS: COVID-19 Test Negative (Negative); IDNOW Serial# 9DD0AD1C
--- NOTE | 2020-06-02 05:03 | PC.NURSE ---
BHN at bed side.
--- NOTE | 2020-06-02 07:22 | PC.NURSE ---
Report received from NORMA Monk. Pt resting, resp unlabored.
[2020-06-02 08:00] VITALS: RESP 20
[2020-06-02] MEDS: Sertraline HCL 50 MG TABLET PO (09:49)
[2020-06-02] MEDS: Buprenorphine/Naloxone 8/2 mg FILM 1 FILM SUBLINGUAL (09:49)
[2020-06-02 09:57] VITALS: BP 123/79; PULSE 72; RESP 16; TEMP 36.4; O2SAT 98
[2020-06-02 10:00] VITALS: RESP 20
--- NOTE | 2020-06-02 11:51 | PC.NURSE ---
CARE team in w/ pt
[2020-06-02 12:00] VITALS: RESP 20
--- NOTE | 2020-06-02 13:27 | MHC.CARE ---
Pt presented with profoundly depressed mood and soft speech that was difficult to understand at times. Tangential in speech at times and had to ask questions to refocus. This food writer met with ct who reported that he was not feeling suicidal. Denied SI with intent, means, or plan. Pt reported that he went to the police department because he was feeling suicidal but knew that he wanted help and support. Acknowledged that he was suicidal at the time but reported that he also wanted help. [Pt reported that he struggles with SI throughout his life. Reports a lot of difficulties with losses he experienced, trauma, dementia, drug use, etc. Reported that he will have thoughts of wanting to often and just cry. Reports that he knows this and does seek help. Pt has a hx of coming to for SI. Pt reported that he needed time to think at the hospital for a day or two about my reasons why I want to live. Pt reported he wants to live for his family and they motivate him to keep living. Pt reported that he used cocaine recently before going to the police station and was unclear about his story around this. Pt reported that he has been sober from substances for 10 months. Pt reports that his mother passed 5.5 years ago and a month later his son by suicide. Pt reports also that he was in halfway for 12 years for something he didn't do and is labeled as a sex offender. Pt reports pain in his life and reports that it is hard to keep going sometimes because of everything that happened to me. This food writer called ct's legal guardian and sister who reported that pt is in and out of the hospital and has struggled with SI off and on for years. Sister Tamy reported that pt could benefit from alf but reports that it has been hard due to his title of a sex offender. Tamy reports she doesn't trust things he says at times because she thinks that he is continuing to utilize drugs. Tamy was aware of the plan for discharge and was okay with it. Pt has support from her and spring encaser and therapist and prescriber through [facility].Pt is firmly rooted in his rach and attends a [employer] that is two blocks from his home, where he also goes to AA meetings. This food writer was unable to get in touch with spring encaser. ER staff was made aware of discharge plans. Pt is concerned around getting his suboxone.
[2020-06-02 14:00] VITALS: RESP 20
--- NOTE | 2020-06-02 15:00 | PC.NURSE ---
Pt stating that he was told by a provider that he would be able to get a prescription for suboxone- Felipe from CARE team called, arranged for prescription as requested. Pt given discharge instructions, and bus pass, no concerns reported, verbalized understanding of instructions, no concerns reported.
--- NOTE | 2020-06-02 15:11 | MHC.RECOVSUP ---
Recovery Support note: This global technical writer was contacted by ED staff due to patient discharging and needing a Suboxone prescription. Patient reports he has an appointment Tuesday at [facility]. Patient was provided with a paper prescription for 2 days of Suboxone to bridge him until his appointment Tuesday.
== END 2020-06-02 15:25 | disposition home or self-care (01) ==
PROVIDERS: Emergency Provider Internal Medicine
DX: F33.1 Major depressive disorder, recurrent, moderate (principal); R45.851 Suicidal ideations; Z79.899 Other long term (current) drug therapy; F17.210 Nicotine dependence, cigarettes, uncomplicated; Z20.822 Contact with and (suspected) exposure to COVID-19; Z71.6 Tobacco abuse counseling; F20.9 Schizophrenia, unspecified
CPT/HCPCS: 36415; 80307; 87635; 99285

== ENCOUNTER 2020-06-10 01:27 | Inpatient (IN) | payer OTHER, SELFPAY ==
[2020-06-10 01:55] VITALS: BP 110/65; BP 118/68; PULSE 70; PULSE 80; RESP 16; TEMP 36.2; O2SAT 100; O2SAT 96; BMI 22.4
[2020-06-10 02:08] VITALS: BP 110/65; PULSE 80; RESP 16; TEMP 36.2; O2SAT 96
--- NOTE | 2020-06-10 02:43 | ED.PSYCH ---
HPI - Psych General Chief Complaint: Psychiatric Symptoms Stated Complaint: crisis Time Seen by Provider: 06/10/20 02:43 Source: patient Mode of arrival: EMS History of Present Illness HPI Narrative: 59-year-old male history of depression and schizoaffective disorder who comes in via EMS this evening with complaints of increasing depression despite taking his medication daily and states that he wants to kill himself and his plan would be to jump out into traffic. Otherwise, he denies any fever, chills, shortness of breath, chest pain. Related Data Home Medications Medication Instructions Recorded Confirmed Biktarvy 1 tab PO BEDTIME 04/24/20 06/02/20 benztropine 1 mg PO BEDTIME 04/25/20 05/20/20 sulfamethoxazole-trimethoprim 1 tab PO DAILY 04/25/20 05/20/20 [Bactrim] buprenorphine-naloxone [Suboxone] 1 strip SUBLINGUAL BID 05/19/20 06/02/20 Previous Rx's Medication Instructions Recorded mirtazapine 15 mg PO BEDTIME 30 Days #30 tab 04/30/20 quetiapine [Seroquel] 200 mg PO BEDTIME 30 Days #0 tab 04/30/20 sertraline 50 mg PO DAILY 30 Days #0 tab 04/30/20 cephalexin 500 mg PO BID 10 Days #20 cap 05/21/20 doxycycline monohydrate 100 mg PO BID 10 Days #20 cap 05/21/20 buprenorphine-naloxone [Suboxone] 1 film BUCCAL DAILY #2 ea 06/02/20 Allergies Allergy/AdvReac Type Severity Reaction Status Date / Time No Known Allergies Allergy Mild NO REACTION Verified 06/01/20 20:45 Review of Systems Review of Systems: Pertinent positives and negatives as stated in the HPI 10 point review of systems is otherwise negative. PMFSH Past Medical History Source: nursing notes reviewed Medical History AIDS Asthma Cocaine use disorder, severe, dependence Depression Hepatitis C HIV (human immunodeficiency virus infection) Opioid dependence Opioid use disorder, severe, in early remission, on maintenance therapy, dependence Schizoaffective disorder Tardive dyskinesia Social History Social History Household Members: Other Housing: Assisted Living Facility Alcohol intake: current Alcohol intake frequency: a few times a month Alcohol type: beer and hard liquor Smoking Status: Current every day smoker Tobacco Type: Cigarette Packs Per Day: 0.5 Cigarettes Per Day: 10.0 Years Smoked: Since age 10 Smoked in Last 30 Days: Yes Second Hand Smoke Exposure: Yes Use of substances other than those prescribed or required for medical reasons: Yes Substance Use Type: Crack/Cocaine and Heroin Substance Use Frequency: Occasionally Last Used Substance: Just Prior to Admission Any prior treatment program specific to substance use: No Advance Directives: Yes Advance Directives on File: Yes Advance Directives Date on File: 01/29/20 service: No Sexual orientation: N/A Physical Exam Vital Signs: Vital Signs: Last Vital Signs Temp 97.2 F 06/10/20 02:08 Pulse 80 06/10/20 02:08 Resp 16 06/10/20 02:08 BP 110/65 06/10/20 02:08 Pulse Ox 96 06/10/20 02:08 Body Mass Index 22.4 VITAL SIGNS: Reviewed. GENERAL: Well developed, well nourished, in no acute distress. HEAD: Normocephalic/atraumatic, EYES: PERRLA, EOMI EARS: Ext canals without abnormality NOSE: Nares patent bilateral OROPHARYNX: no oral lesions noted, posterior pharynx clear NECK: Supple, no adenopathy LUNGS: Normal breath sounds. No adventitious sounds or accessory muscle use. SpO2<96> CARDIOVASCULAR: Regular rate and rhythm without noted murmurs ABDOMEN: Soft, non-tender, non-distended with bowel sounds. NEUROLOGIC: Alert and oriented x 4. Strength and sensation to light touch were grossly intact x 4. PSYCH: Depressed affect Course Course Course Narrative: This is a 59-year-old male with history and clinical presentation a recurrent depressive symptoms as well as diagnosis of schizoaffective disorder and cocaine use. Patient is otherwise cleared for further evaluation by the crisis team. Reevaluation(s) Reevaluation #1: Patient placed in physician observation because the patient needed more time for BHN evaluation. At the time observation was started the patient's vital signs were stable, patient is alert and oriented, neuro: Nonfocal, CV RRR, lungs clear Time: 03:32 MDM - Psych Lab Data Labs: Lab Results 06/10/20 06/10/20 Range/Units 02:38 03:14 Urine Opiates Screen POSITIVE H (Not Detect) Ur Barbiturates Screen Not Detected (Not Detect) Ur Phencyclidine Scrn Not Detected (Not Detect) Ur Amphetamines Screen Not Detected (Not Detect) U Benzodiazepines Scrn Not Detected (Not Detect) Urine Cocaine Screen POSITIVE H (Not Detect) U Marijuana (THC) Screen Not Detected (Not Detect) COVID-19 (NEETU) Negative (Negative) COVID-19 Clin Com See Note Discharge Plan Discharge Prescriptions: No Action Biktarvy 50-200-25 mg tablet 1 tab PO BEDTIME RF: 0 sulfamethoxazole-trimethoprim [Bactrim] 400-80 mg Tablet 1 tab PO DAILY RF: 0 benztropine 1 mg Tablet 1 mg PO BEDTIME RF: 0 quetiapine [Seroquel] 200 mg tablet 200 mg PO BEDTIME 30 Days Qty: 0 RF: 0 mirtazapine 15 mg Tablet 15 mg PO BEDTIME 30 Days Qty: 30 RF: 0 sertraline 50 mg Tablet 50 mg PO DAILY 30 Days Qty: 0 RF: 0 buprenorphine-naloxone [Suboxone] 8-2 mg film 1 strip sublingual BID RF: 0 doxycycline monohydrate 100 mg capsule 100 mg PO BID 10 Days Qty: 20 RF: 0 cephalexin 500 mg capsule 500 mg PO BID 10 Days Qty: 20 RF: 0 buprenorphine-naloxone [Suboxone] 8-2 mg film 1 film buccal DAILY Qty: 2 RF: 0
[2020-06-10 03:02] LABS: Amphetamine Screen Urine Not Detected (Not Detect); Barbiturates, Urine Not Detected (Not Detect); Benzodiazepines Screen Urine Not Detected (Not Detect); Cannabinoid Screen Urine Not Detected (Not Detect); Cocaine Screen Urine POSITIVE (Not Detect); Opiate Screen Urine POSITIVE (Not Detect); Phencyclidine Screen Urine Not Detected (Not Detect)
--- NOTE | 2020-06-10 03:39 | PC.NURSE ---
This nurse attempted to call [facility] but the facility is closed at this time. Also tried to contact the PT's halfway staff for a copy of his med list, but no one answered the call and the voicemail mail box was full.
[2020-06-10 03:47] LABS: COVID-19 Test Negative (Negative)
--- NOTE | 2020-06-10 03:59 | PC.NURSE ---
[facility] contact (Vinay) - [phone]
--- NOTE | 2020-06-10 04:19 | PC.NURSE ---
[facility] faxed and called.
--- NOTE | 2020-06-10 07:11 | PC.NURSE ---
Report recieved. PT currently resting, respirations even and unlabored, in no apparent distress. PT is waiting to be seen by N.
[2020-06-10 09:42] VITALS: BP 94/57; PULSE 64; RESP 18; TEMP 37.1; O2SAT 95
[2020-06-10] MEDS: Sertraline HCL 50 MG TABLET PO (11:44)
--- NOTE | 2020-06-10 14:13 | PC.NURSE ---
patient resting on recliner in group room, had snack (pb and J) prior to lunchtime pt declined calll from [facility] asked them to call back later
--- NOTE | 2020-06-10 18:33 | PC.NURSE ---
BHN at bedside for eval
[2020-06-10] MEDS: Mirtazapine 15 MG TABLET PO (21:25)
[2020-06-10] MEDS: QUEtiapine Fumarate 200 MG TABLET PO (21:26)
[2020-06-10] MEDS: Buprenorphine/Naloxone 8/2 mg FILM 1 FILM SUBLINGUAL (21:30)
[2020-06-11] VITALS: BP 98/56; PULSE 84; RESP 18; TEMP 36; O2SAT 97
--- NOTE | 2020-06-11 | ECG_ITS ---
Test Reason : MED CLEARANCE Blood Pressure : / mmHG Vent. Rate : 064 BPM Atrial Rate : 064 BPM P-R Int : 234 ms QRS Dur : 096 ms QT Int : 426 ms P-R-T Axes : 069 078 043 degrees QTc Int : 439 ms Sinus rhythm with 1st degree A-V block Otherwise normal ECG When compared with ECG of 22-APR-2020 17:59, MD interval has increased Vent. rate has decreased BY 33 BPM Referred By: Anitha Pringle Electronically Signed By:DOUG ZHONG MD
--- NOTE | 2020-06-11 06:54 | PC.NURSE ---
Report received. PT currently sleeping, respirations even and unlabored, in no apparent distress. PT is inpatient bedsearch.
--- NOTE | 2020-06-11 09:16 | PC.NURSE ---
PT bp 70's/40s while laying, sitting and standing, provider aware. PT given pitcher of water and encouraged to drink fluids. PT denies feeling lightheaded, pt is alert and oriented, walking with steady gait around unit. PT pressure up to 90s/50 after walking.
[2020-06-11 09:25] VITALS: BP 74/44; PULSE 81; RESP 16; TEMP 36.6; O2SAT 96
[2020-06-11] MEDS: Buprenorphine/Naloxone 8/2 mg FILM 1 FILM SUBLINGUAL ×2 (09:34→22:02)
[2020-06-11] MEDS: Sertraline HCL 50 MG TABLET PO (09:34)
--- NOTE | 2020-06-11 11:00 | PC.NURSE ---
PT appears to be responding internally, self dialogue noted, pt making hand gestures as if speaking with someone while alone in his room.
[2020-06-11 14:00] VITALS: BP 124/54; PULSE 76; RESP 18; TEMP 36.4; O2SAT 97
[2020-06-11 14:02] LABS: Hematocrit 40.5 % (42-52); Hemoglobin 13.7 g/dl (14.0-18.0); Mean Corpuscular HGB Conc 33.8 g/dl (31.0-36.0); Mean Corpuscular Hemoglobin 30.8 pg (27.0-33.0); Mean Platelet Volume 10.6 fL (9.4-12.4); Platelet Count 162 X10*3/uL (160-400); Red Blood Count 4.45 X10*6/uL (4.60-5.80)
[2020-06-11 14:09] LABS: WBC ABN SCTR FOR CBC 1
[2020-06-11 14:22] LABS: Alanine Aminotransferase 25 U/L (0-40); Albumin Level 3.5 g/dL (3.5-5.0); Alkaline Phosphatase 138 U/L (39-117); Anion Gap 11 (12-20); Aspartate Amino Transferase 38 U/L (5-37); Bilirubin Total 0.3 mg/dL (0.0-1.0); Blood Urea Nitrogen 23 mg/dL (9-16); Calcium 9.3 mg/dL (8.4-10.2); Carbon Dioxide 26 mmol/L (22-29); Chloride 105 mmol/L (96-108); Creatinine Clr Calc Pharmacy 83.9; Estimated Glomerular Filt Rate > 60; Glucose Random 108 mg/dL (60-115); Potassium 3.9 mmol/L (3.3-5.1); Sodium 138 mmol/L (135-145); Total Protein 7.5 g/dL (6.5-8.0)
[2020-06-11 15:00] LABS: Eosinophils Percent Manual 2 % (0-4); Lymphocytes Percent Manual 29 % (20-40); Monocytes Percent Manual 14 % (2-11); Neutrophils Percent Manual 55 % (45-73)
[2020-06-11 15:01] LABS: Platelet Estimate NORMAL (NORMAL); Platelet Morphology Comment NORMAL; RBC Morphology NORMAL
[2020-06-11 15:02] LABS: Eosinophils Absolute Manual 0.1 X10*3/UL (0.0-0.8); Lymphocytes Absolute Manual 1.1 X10*3/uL (0.6-4.8); Monocytes Absolute Manual 0.5 X10*3/uL (0.0-1.2); White Blood Count 3.9 X10*3/uL (4.8-10.8)
[2020-06-11 15:06] LABS: Band Neutrophils Percent 0 % (3-5); Neutrophils Absolute Manual 2.1 X10*3/uL (2.2-7.9)
[2020-06-11 15:18] LABS: Smudge Cells PRESENT
--- NOTE | 2020-06-11 17:08 | PC.NURSE ---
Pt resting in bed comfortably at this time, no complaints, calm.
[2020-06-11 20:47] VITALS: BP 123/75; PULSE 65; RESP 18; TEMP 36.9; O2SAT 95
[2020-06-11 21:24] VITALS: BMI 22.7
[2020-06-11] MEDS: QUEtiapine Fumarate 200 MG TABLET PO (22:02)
[2020-06-11] MEDS: Mirtazapine 15 MG TABLET PO (22:02)
[2020-06-11] MEDS: Benztropine Mesylate 1 MG TABLET PO (22:02)
[2020-06-11] MEDS: Milk of Magnesia 30 ML ORAL.SUSP PO (22:04)
[2020-06-11 22:55] VITALS: BP 120/74; PULSE 74; TEMP 36.1; O2SAT 98
--- NOTE | 2020-06-11 22:56 | PC.NURSE ---
Pt is a 59 year old male admitted to the unit after referral from [facility]. Arrived on unit at 2049 and was placed on 5 minute safety checks per unit policy. Legal status: 3 day notice. Pt requested to and signed a 3 day notice which will be up on June 16. Pt has been residing at [facility] for the last approximately 2 years, housing is considered stable and he is able to return at discharge; however, pt's sister and guardian, Tamy, is working on finding him alternate housing as she does not feel it is the best placement for him. He has been feeling increasingly depressed and suicidal, thinking about jumping into traffic. He reports being sober for some time, however 2 days ago used heroin, cocaine, and crack cocaine. Pt denies current SI or self-harming thoughts, denies any current hallucinations. Medications verified while pt was in the ED. Nurse to nurse completed prior to admission. Dr. Fritz notified of admission and orders obtained. Pt placed on 15 minute safety checks; pt is appropriate and cooperative on the unit, contracts for unit safety.
[2020-06-12] MEDS: traZODone HCL 50 MG TABLET PO (00:42)
[2020-06-12] MEDS: hydrOXYzine HCL 25 MG TABLET PO (00:42)
[2020-06-12 06:00] VITALS: BP 106/56; PULSE 95; RESP 18; TEMP 35.4; O2SAT 95
[2020-06-12 07:00] VITALS: BMI 22.8
[2020-06-12] MEDS: Sertraline HCL 50 MG TABLET PO (08:28)
[2020-06-12] MEDS: Buprenorphine/Naloxone 8/2 mg FILM 1 FILM SUBLINGUAL ×2 (08:28→19:56)
--- NOTE | 2020-06-12 11:00 | P.PNPSI_ITS ---
Subjective Subjective Date of Service: 06/12/20 Reason For Visit: Acute psychosis Diagnostics Vital Signs (24Hr): Vital Signs - 24 hr 06/11/20 14:00 06/11/20 20:47 06/11/20 22:55 Temperature 97.6 F 98.5 F 96.9 F Pulse Rate 76 65 74 Respiratory Rate 18 18 Blood Pressure 124/54 L 123/75 120/74 Pulse Oximetry 97 95 98 06/12/20 06:00 Temperature 95.7 F L Pulse Rate 95 Respiratory Rate 18 Blood Pressure 106/56 L Pulse Oximetry 95 Body Mass Index 22.8 Labs Results: 06/11/20 13:51 06/11/20 13:51 Labs: Laboratory Results - last 48 hr 06/11/20 06/11/20 13:51 13:51 WBC 3.9 L RBC 4.45 L Hgb 13.7 L Hct 40.5 L MCV 91.0 MCH 30.8 MCHC 33.8 RDW 16.0 Plt Count 162 MPV 10.6 Immature Gran % (Auto) Cancelled Neut % (Auto) Cancelled Lymph % (Auto) Cancelled Blaine % (Auto) Cancelled Eos % (Auto) Cancelled Baso % (Auto) Cancelled Lymph # (Auto) Cancelled Blaine # (Auto) Cancelled Eos # (Auto) Cancelled Baso # (Auto) Cancelled Abs Immat Gran (auto) Cancelled Absolute Neuts (auto) Cancelled Absolute Nucleated RBC 0.000 Nucleated RBC % (auto) 0.0 Neutrophils % (Manual) 55 Band Neutrophils % 0 L Lymphocytes % (Manual) 29 Monocytes % (Manual) 14 H Eosinophils % (Manual) 2 Abs Neuts (Manual) 2.1 L Lymphocytes # (Manual) 1.1 Monocytes # (Manual) 0.5 Eosinophils # (Manual) 0.1 Smudge Cells PRESENT Platelet Estimate NORMAL Plt Morphology Comment NORMAL RBC Morphology NORMAL Sodium 138 Potassium 3.9 Chloride 105 Carbon Dioxide 26 Anion Gap 11 L BUN 23 H Creatinine 0.81 Estim Creat Clear Calc 83.9 Estimated GFR > 60 Random Glucose 108 Calcium 9.3 Total Bilirubin 0.3 AST 38 H D ALT 25 Alkaline Phosphatase 138 H D Total Protein 7.5 Albumin 3.5 Medications Medications Current Medications Generic Name Dose Route Start Last Admin Trade Name Freq PRN Reason Stop Dose Admin Acetaminophen 650 mg 06/11/20 21:36 Acetaminophen 325 Mg Tablet PO Q6H PRN Headache/Pain Mild Scale (1-3) Al Hydroxide/Mg Hydroxide 30 ml 06/11/20 21:36 Magnesium Hydrox/Alum Hydrox 30 Ml Oral.Susp PO Q6H PRN Heartburn/Nausea Benztropine Mesylate 1 mg 06/11/20 21:36 06/11/20 22:02 Benztropine Mesylate 1 Mg Tablet PO 1 mg BEDTIME VICENTE Administration Bictegravir/Emtricitabine/Tenofovir 1 tab 06/10/20 21:00 06/11/20 22:02 Bictegrav/Emtricit/Tenofov Ala 1 Tab Tablet PO 1 tab BEDTIME VICENTE Administration Buprenorphine/Naloxone 1 film 06/10/20 10:30 06/12/20 08:28 Buprenorphine/Naloxone 8/2 Mg Film SUBLINGUAL 1 film BID VICENTE Administration Hydroxyzine HCl 25 mg 06/11/20 21:36 06/12/20 00:42 Hydroxyzine Hcl 25 Mg Tablet PO 25 mg BEDTIME PRN Administration Anxiety Magnesium Hydroxide 30 ml 06/11/20 21:36 06/11/20 22:04 Milk Of Magnesia 30 Ml Oral.Susp PO 30 ml DAILY PRN Administration Constipation Mirtazapine 15 mg 06/10/20 21:00 06/11/20 22:02 Mirtazapine 15 Mg Tablet PO 15 mg BEDTIME VICENTE Administration Nicotine Polacrilex 4 mg 06/11/20 21:36 Nicotine Polacrilex 2 Mg Gum BUCCAL Q2H PRN Nicotine Cravings Pharmacy Consult 1 each 06/10/20 04:04 Consult Rx Perform Med Rec MISCELLANE ONCE PRN Consult order Quetiapine Fumarate 200 mg 06/10/20 21:00 06/11/20 22:02 Quetiapine Fumarate 200 Mg Tablet PO 200 mg BEDTIME VICENTE Administration Sertraline HCl 50 mg 06/10/20 10:30 06/12/20 08:28 Sertraline Hcl 50 Mg Tablet PO 50 mg DAILY VICENTE Administration Trazodone HCl 50 mg 06/11/20 21:36 06/12/20 00:42 Trazodone Hcl 50 Mg Tablet PO 50 mg BEDTIME PRN Administration Insomnia Trimethoprim/Sulfamethoxazole 1 tab 06/10/20 10:30 06/12/20 08:28 Sulfamethox/Trimeth 400/80 1 Tab Tablet PO 1 tab DAILY VICENTE Administration Allergies Allergies Allergy/AdvReac Type Severity Reaction Status Date / Time No Known Allergies Allergy Mild NO REACTION Verified 06/01/20 20:45 Assessment & Plan Greater than 50% of the session was spent on counseling and/or coordination of care
--- NOTE | 2020-06-12 11:01 | HO.PSYADMNOT ---
Documented by User: Christie Mann APRN 06/12/20 22:05 HPI Chief Complaint: Schizophrenia, Depression Sources of Information: patient interviewed, chart reviewed and crisis/core team assessment reviewed HPI Subjective Notes: Conditional Voluntary Narrative: 59 yo male reports increased sx of depression with SI with plan and intent to cause a MVA if he were to run into the street. Precipitants pt states are the loss of his mother, and loss of a son to suicide. Pt reports the main precipitant is housing. He is currently living in a rest home and finds it to be intolerable. He has tried this type of living for about 2.5 years he states and he just is wanting to find an improved situation. Urine tox + opiates, cocaine. Pt has cognitive sequalae of HIV as well by history. He reports poor compliance with medications and medical treatment after his last discharge. He is known to the service with a history of admissions with similiar presentation. Past Psychiatric History: Several M5 admissions Medical Evaluation Reviewed: Yes [facility] Medical History AIDS Asthma Cocaine use disorder, severe, dependence Depression Hepatitis C HIV (human immunodeficiency virus infection) Opioid dependence Opioid use disorder, severe, in early remission, on maintenance therapy, dependence Schizoaffective disorder Tardive dyskinesia Family History: Patient's sister Tamy Shepard is his legal guardian Social History: Rest home resident Disabled Substance History: Cocaine, Opiates Trauma History: Yes Diagnostics Vital Signs (24Hr): Vital Signs - 24 hr 06/11/20 14:00 06/11/20 20:47 06/11/20 22:55 Temperature 97.6 F 98.5 F 96.9 F Pulse Rate 76 65 74 Respiratory Rate 18 18 Blood Pressure 124/54 L 123/75 120/74 Pulse Oximetry 97 95 98 06/12/20 06:00 Temperature 95.7 F L Pulse Rate 95 Respiratory Rate 18 Blood Pressure 106/56 L Pulse Oximetry 95 Body Mass Index 22.8 Labs Results: 06/11/20 13:51 06/11/20 13:51 Labs: Laboratory Results - last 48 hr 06/11/20 06/11/20 13:51 13:51 WBC 3.9 L RBC 4.45 L Hgb 13.7 L Hct 40.5 L MCV 91.0 MCH 30.8 MCHC 33.8 RDW 16.0 Plt Count 162 MPV 10.6 Immature Gran % (Auto) Cancelled Neut % (Auto) Cancelled Lymph % (Auto) Cancelled [place] % (Auto) Cancelled Eos % (Auto) Cancelled Baso % (Auto) Cancelled Lymph # (Auto) Cancelled [place] # (Auto) Cancelled Eos # (Auto) Cancelled Baso # (Auto) Cancelled Abs Immat Gran (auto) Cancelled Absolute Neuts (auto) Cancelled Absolute Nucleated RBC 0.000 Nucleated RBC % (auto) 0.0 Neutrophils % (Manual) 55 Band Neutrophils % 0 L Lymphocytes % (Manual) 29 Monocytes % (Manual) 14 H Eosinophils % (Manual) 2 Abs Neuts (Manual) 2.1 L Lymphocytes # (Manual) 1.1 Monocytes # (Manual) 0.5 Eosinophils # (Manual) 0.1 Smudge Cells PRESENT Platelet Estimate NORMAL Plt Morphology Comment NORMAL RBC Morphology NORMAL Sodium 138 Potassium 3.9 Chloride 105 Carbon Dioxide 26 Anion Gap 11 L BUN 23 H Creatinine 0.81 Estim Creat Clear Calc 83.9 Estimated GFR > 60 Random Glucose 108 Calcium 9.3 Total Bilirubin 0.3 AST 38 H D ALT 25 Alkaline Phosphatase 138 H D Total Protein 7.5 Albumin 3.5 Meds/Allergies Meds Home Medications Acetaminophen (Acetaminophen 325 Mg Tablet) 650 mg PO Q6H PRN PRN Reason: Headache/Pain Mild Scale (1-3) Last Admin: 06/12/20 19:56 Dose: 650 mg Documented by: Al Hydroxide/Mg Hydroxide (Magnesium Hydrox/Alum Hydrox 30 Ml Oral.Susp) 30 ml PO Q6H PRN PRN Reason: Heartburn/Nausea Benztropine Mesylate (Benztropine Mesylate 1 Mg Tablet) 1 mg PO BEDTIME [facility]E Last Admin: 06/12/20 19:56 Dose: 1 mg Documented by: Bictegravir/Emtricitabine/Tenofovir (Bictegrav/Emtricit/Tenofov Ala 1 Tab Tablet) 1 tab PO BEDTIME [facility]ICENTE Last Admin: 06/12/20 19:56 Dose: 1 tab Documented by: Buprenorphine/Naloxone (Buprenorphine/Naloxone 8/2 Mg Film) 1 film SUBLINGUAL BID [facility]E Last Admin: 06/13/20 09:09 Dose: 1 film Documented by: Hydroxyzine HCl (Hydroxyzine Hcl 25 Mg Tablet) 25 mg PO BEDTIME PRN PRN Reason: Anxiety Last Admin: 06/13/20 01:26 Dose: 25 mg Documented by: Magnesium Hydroxide (Milk Of Magnesia 30 Ml Oral.Susp) 30 ml PO DAILY PRN PRN Reason: Constipation Last Admin: 06/11/20 22:04 Dose: 30 ml Documented by: Mirtazapine (Mirtazapine 15 Mg Tablet) 15 mg PO BEDTIME [facility] Last Admin: 06/12/20 19:56 Dose: 15 mg Documented by: Nicotine Polacrilex (Nicotine Polacrilex 2 Mg Gum) 4 mg BUCCAL Q2H PRN PRN Reason: Nicotine Cravings Pharmacy Consult (Consult Rx Perform Med Rec) 1 each MISCELLANE ONCE PRN PRN Reason: Consult order Quetiapine Fumarate (Quetiapine Fumarate 200 Mg Tablet) 200 mg PO BEDTIME [facility] Last Admin: 06/12/20 19:56 Dose: 200 mg Documented by: Sertraline HCl (Sertraline Hcl 50 Mg Tablet) 50 mg PO DAILY [facility] Last Admin: 06/13/20 09:08 Dose: 50 mg Documented by: Trazodone HCl (Trazodone Hcl 50 Mg Tablet) 50 mg PO BEDTIME PRN PRN Reason: Insomnia Last Admin: 06/12/20 00:42 Dose: 50 mg Documented by: Trimethoprim/Sulfamethoxazole (Sulfamethox/Trimeth 400/80 1 Tab Tablet) 1 tab PO DAILY [facility] Last Admin: 06/13/20 09:09 Dose: 1 tab Documented by: Allergies Allergies Allergy/AdvReac Type Severity Reaction Status Date / Time No Known Allergies Allergy Mild NO REACTION Verified 06/01/20 20:45 Mental Status Exam Mental Status Exam Patient Appearance: Well Grooomed and Fatigued Patient Orientation: Person, Place and Situation Level of Consciousness: Awake and Alert Patient Behavior: Appropriate, Talkative, Cooperative, Sedated, Fatigued, Distractible, Isolative and Good Eye Contact Mood Description: Withdrawn, Depressed, Fearful, Anxious, Sad and Apprehensive Affect Description: Flat Patient Cognition Impaired: Yes Ability to Follow Directions: Fair Speech Pattern: Spontaneous Speech, Soft-Spoken and Delayed Memory Description: Remote Impaired and Episodic Impaired Hallucinations: Auditory Delusions: Paranoid Ideation Thought Process: Illogical and Distracted Thought Content: positive for Flight of Ideas, positive for Loose Associations, positive for Tangential and positive for Suicidal Ideation Depressive Symptoms: Increased Anxiety, Diff. Making Decisions, Increased Irritability, Difficulty Sleeping, Loss of Int. in Activity, Feelings of Worthlessness, Hopelessness, Feelings of Guilt, Unhappiness, Increased Fatigue, Thoughts of /Suicide, Low Self Esteem and Difficulty Concentrating Abnormal Motor Activity Signs and Symptoms: Restlessness Judgement: Fair Assessment & Plan Assessment & Plan (1) Depression: Status: Acute Code(s): F32.9 - Major depressive disorder, single episode, unspecified Assessment and Plan: Pt reports the main issue to be housing. Will discuss with guardian/social service (2) Schizoaffective disorder: Status: Acute Code(s): F25.9 - Schizoaffective disorder, unspecified Assessment and Plan: Pt reports medicine noncompliance [employer]. Will make no changes at this time until he is re-established. Message left for pt's sister (3) HIV (human immunodeficiency virus infection): Status: Acute Code(s): B20 - Human immunodeficiency virus [HIV] disease Assessment and Plan: Medical consultation, diagnostics Pt again reports poor compliance-will make no changes until he is re-established (4) Cocaine use disorder, severe, dependence: Status: Acute Code(s): F14.20 - Cocaine dependence, uncomplicated (5) Opioid use disorder, severe, in early remission, on maintenance therapy, dependence: Status: Acute Code(s): F11.21 - Opioid dependence, in remission Patient educated on: medication risk/benefits, substance abuse and therapeutic strategies Informed Consent: further education needed Reason for continued inpatient stay Substantial Risk for: harm to self, inability to function, rapid decompensation and med/psych decompensation Documented by User: Jan Gracia MD 06/13/20 14:51 HPI Chief Complaint: Schizophrenia, Depression [facility] Medical History AIDS Asthma Cocaine use disorder, severe, dependence Depression Hepatitis C HIV (human immunodeficiency virus infection) Opioid dependence Opioid use disorder, severe, in early remission, on maintenance therapy, dependence Schizoaffective disorder Tardive dyskinesia Diagnostics Labs Results: 06/11/20 13:51 06/11/20 13:51 Meds/Allergies Meds Home Medications Acetaminophen (Acetaminophen 325 Mg Tablet) 650 mg PO Q6H PRN PRN Reason: Headache/Pain Mild Scale (1-3) Last Admin: 06/12/20 19:56 Dose: 650 mg Documented by: Al Hydroxide/Mg Hydroxide (Magnesium Hydrox/Alum Hydrox 30 Ml Oral.Susp) 30 ml PO Q6H PRN PRN Reason: Heartburn/Nausea Benztropine Mesylate (Benztropine Mesylate 1 Mg Tablet) 1 mg PO BEDTIME [facility] Last Admin: 06/12/20 19:56 Dose: 1 mg Documented by: Bictegravir/Emtricitabine/Tenofovir (Bictegrav/Emtricit/Tenofov Ala 1 Tab Tablet) 1 tab PO BEDTIME [facility] Last Admin: 06/12/20 19:56 Dose: 1 tab Documented by: Buprenorphine/Naloxone (Buprenorphine/Naloxone 8/2 Mg Film) 1 film SUBLINGUAL BID [facility] Last Admin: 06/13/20 09:09 Dose: 1 film Documented by: Hydroxyzine HCl (Hydroxyzine Hcl 25 Mg Tablet) 25 mg PO BEDTIME PRN PRN Reason: Anxiety Last Admin: 06/13/20 01:26 Dose: 25 mg Documented by: Magnesium Hydroxide (Milk Of Magnesia 30 Ml Oral.Susp) 30 ml PO DAILY PRN PRN Reason: Constipation Last Admin: 06/11/20 22:04 Dose: 30 ml Documented by: Mirtazapine (Mirtazapine 15 Mg Tablet) 15 mg PO BEDTIME [facility] Last Admin: 06/12/20 19:56 Dose: 15 mg Documented by: Nicotine Polacrilex (Nicotine Polacrilex 2 Mg Gum) 4 mg BUCCAL Q2H PRN PRN Reason: Nicotine Cravings Pharmacy Consult (Consult Rx Perform Med Rec) 1 each MISCELLANE ONCE PRN PRN Reason: Consult order Quetiapine Fumarate (Quetiapine Fumarate 200 Mg Tablet) 200 mg PO BEDTIME [facility] Last Admin: 06/12/20 19:56 Dose: 200 mg Documented by: Sertraline HCl (Sertraline Hcl 50 Mg Tablet) 50 mg PO DAILY [facility] Last Admin: 06/13/20 09:08 Dose: 50 mg Documented by: Trazodone HCl (Trazodone Hcl 50 Mg Tablet) 50 mg PO BEDTIME PRN PRN Reason: Insomnia Last Admin: 06/12/20 00:42 Dose: 50 mg Documented by: Trimethoprim/Sulfamethoxazole (Sulfamethox/Trimeth 400/80 1 Tab Tablet) 1 tab PO DAILY [facility] Last Admin: 06/13/20 09:09 Dose: 1 tab Documented by: Allergies Allergies Allergy/AdvReac Type Severity Reaction Status Date / Time No Known Allergies Allergy Mild NO REACTION Verified 06/01/20 20:45
[2020-06-12 17:46] VITALS: BP 103/59; PULSE 83; RESP 18; TEMP 36.2; O2SAT 95
[2020-06-12] MEDS: Mirtazapine 15 MG TABLET PO (19:56)
[2020-06-12] MEDS: Acetaminophen 325 MG TABLET 650 MG PO (19:56)
[2020-06-12] MEDS: QUEtiapine Fumarate 200 MG TABLET PO (19:56)
[2020-06-12] MEDS: Benztropine Mesylate 1 MG TABLET PO (19:56)
[2020-06-13] MEDS: hydrOXYzine HCL 25 MG TABLET PO (01:26)
[2020-06-13] MEDS: Sertraline HCL 50 MG TABLET PO (09:08)
[2020-06-13] MEDS: Buprenorphine/Naloxone 8/2 mg FILM 1 FILM SUBLINGUAL ×2 (09:09→20:20)
[2020-06-13 11:43] VITALS: BP 107/58; PULSE 66; RESP 16; TEMP 36.5; O2SAT 98
--- NOTE | 2020-06-13 12:48 | HO.PSYCHPN ---
Subjective Subjective Date of Service: 06/13/20 Reason For Visit: Schizophrenia, Depression Subjective Notes: Conditional Voluntary Interim History: So I need to leave on Tuesday because my check comes in on Tuesday. Pt visable, social, appropriate with some confusion and tangential thought process today. Reports he slept, reports he is eating, discussed Ensure additions.Pt reports he believes he does not get enough food at the rest home and as a result has lost weight. He states his sister is helping him to find new housing options, however, he believes this will take a significant amount of time. Concerned about +Hep C and receiving treatment. Discussed the need for some sobriety prior to receiving treatment, pt reports he is sober. Discussed tox results-pt reports he only uses when suicidal, not on a regular basis. States he was taking meds as directed prior to admission, but reports I think they seem to work better when I am here. Continues with some passive SI-situationally focused and dysphoria. Brittney Cuate OTR/L has completed a MOCA with pt and he has scored 18/30. Medication Compliance: Yes Side effects from medications: No (denies) Attending Groups: No Review of Systems Review of Systems Yes all other systems are reviewed and are negative (denies) Gastrointestinal: Reports other (concern about receiving treatment for Hepatitis C) Reports confusion Psychiatric: Reports anxiety, Reports change in appetite, Reports confusion, Reports depression, Reports difficulty concentrating, Reports auditory hallucinations, Reports hopelessness (regarding living situation and chance to move.) and Reports suicidal ideation (passive today, without plan or intent) Mental Status Exam Mental Status Exam Patient Appearance: Appropriate Patient Orientation: Person, Place, Time and Situation Level of Consciousness: Alert Patient Behavior: Appropriate, Guarded (mild), Talkative, Cooperative, Anxious, Distractible, Confused, Good Eye Contact and Impulsive Mood Description: Withdrawn, Depressed, Anxious and Apprehensive Affect Description: Constricted Patient Cognition Impaired: Yes Ability to Follow Directions: Good Speech Pattern: Spontaneous Speech, Rambling and Pressured Memory Description: Remote Impaired and Episodic Impaired Hallucinations: None (denies) Delusions: Paranoid Ideation Thought Process: Distracted and Confusion Thought Content: positive for Flight of Ideas, positive for Circumstantial, positive for Tangential and positive for Disorganized Depressive Symptoms: Increased Anxiety, Diff. Making Decisions, Significant Weight Loss, Hopelessness (regarding living situation), Thoughts of /Suicide (passive, without plan or intent) and Difficulty Concentrating Abnormal Motor Activity Signs and Symptoms: Restlessness Judgement: Fair Diagnostics Vital Signs (24Hr): Vital Signs - 24 hr 06/12/20 17:46 06/13/20 11:43 Temperature 97.1 F 97.7 F Pulse Rate 83 66 Respiratory Rate 18 16 Blood Pressure 103/59 L 107/58 L Pulse Oximetry 95 98 Body Mass Index 22.8 Labs Results: 06/11/20 13:51 06/11/20 13:51 Labs: Laboratory Results - last 48 hr 06/11/20 06/11/20 13:51 13:51 WBC 3.9 L RBC 4.45 L Hgb 13.7 L Hct 40.5 L MCV 91.0 MCH 30.8 MCHC 33.8 RDW 16.0 Plt Count 162 MPV 10.6 Immature Gran % (Auto) Cancelled Neut % (Auto) Cancelled Lymph % (Auto) Cancelled [place] % (Auto) Cancelled Eos % (Auto) Cancelled Baso % (Auto) Cancelled Lymph # (Auto) Cancelled [place] # (Auto) Cancelled Eos # (Auto) Cancelled Baso # (Auto) Cancelled Abs Immat Gran (auto) Cancelled Absolute Neuts (auto) Cancelled Absolute Nucleated RBC 0.000 Nucleated RBC % (auto) 0.0 Neutrophils % (Manual) 55 Band Neutrophils % 0 L Lymphocytes % (Manual) 29 Monocytes % (Manual) 14 H Eosinophils % (Manual) 2 Abs Neuts (Manual) 2.1 L Lymphocytes # (Manual) 1.1 Monocytes # (Manual) 0.5 Eosinophils # (Manual) 0.1 Smudge Cells PRESENT Platelet Estimate NORMAL Plt Morphology Comment NORMAL RBC Morphology NORMAL Sodium 138 Potassium 3.9 Chloride 105 Carbon Dioxide 26 Anion Gap 11 L BUN 23 H Creatinine 0.81 Estim Creat Clear Calc 83.9 Estimated GFR > 60 Random Glucose 108 Calcium 9.3 Total Bilirubin 0.3 AST 38 H D ALT 25 Alkaline Phosphatase 138 H D Total Protein 7.5 Albumin 3.5 Medications Medications Current Medications Generic Name Dose Route Start Last Admin Trade Name Freq PRN Reason Stop Dose Admin Acetaminophen 650 mg 06/11/20 21:36 06/12/20 19:56 Acetaminophen 325 Mg Tablet PO 650 mg Q6H PRN Administration Headache/Pain Mild Scale (1-3) Al Hydroxide/Mg Hydroxide 30 ml 06/11/20 21:36 Magnesium Hydrox/Alum Hydrox 30 Ml Oral.Susp PO Q6H PRN Heartburn/Nausea Benztropine Mesylate 1 mg 06/11/20 21:36 06/12/20 19:56 Benztropine Mesylate 1 Mg Tablet PO 1 mg BEDTIME [facility] Administration Bictegravir/Emtricitabine/Tenofovir 1 tab 06/10/20 21:00 06/12/20 19:56 Bictegrav/Emtricit/Tenofov Ala 1 Tab Tablet PO 1 tab BEDTIME [facility] Administration Buprenorphine/Naloxone 1 film 06/10/20 10:30 06/13/20 09:09 Buprenorphine/Naloxone 8/2 Mg Film SUBLINGUAL 1 film BID [facility] Administration Hydroxyzine HCl 25 mg 06/11/20 21:36 06/13/20 01:26 Hydroxyzine Hcl 25 Mg Tablet PO 25 mg BEDTIME PRN Administration Anxiety Magnesium Hydroxide 30 ml 06/11/20 21:36 06/11/20 22:04 Milk Of Magnesia 30 Ml Oral.Susp PO 30 ml DAILY PRN Administration Constipation Mirtazapine 15 mg 06/10/20 21:00 06/12/20 19:56 Mirtazapine 15 Mg Tablet PO 15 mg BEDTIME [facility]E Administration Nicotine Polacrilex 4 mg 06/11/20 21:36 Nicotine Polacrilex 2 Mg Gum BUCCAL Q2H PRN Nicotine Cravings Pharmacy Consult 1 each 06/10/20 04:04 Consult Rx Perform Med Rec MISCELLANE ONCE PRN Consult order Quetiapine Fumarate 200 mg 06/10/20 21:00 06/12/20 19:56 Quetiapine Fumarate 200 Mg Tablet PO 200 mg BEDTIME [facility] Administration Sertraline HCl 50 mg 06/10/20 10:30 06/13/20 09:08 Sertraline Hcl 50 Mg Tablet PO 50 mg DAILY [facility] Administration Trazodone HCl 50 mg 06/11/20 21:36 06/12/20 00:42 Trazodone Hcl 50 Mg Tablet PO 50 mg BEDTIME PRN Administration Insomnia Trimethoprim/Sulfamethoxazole 1 tab 06/10/20 10:30 06/13/20 09:09 Sulfamethox/Trimeth 400/80 1 Tab Tablet PO 1 tab DAILY [facility] Administration Allergies Allergies Allergy/AdvReac Type Severity Reaction Status Date / Time No Known Allergies Allergy Mild NO REACTION Verified 06/01/20 20:45 Assessment & Plan Assessment & Plan (1) Depression: Status: Acute Code(s): F32.9 - Major depressive disorder, single episode, unspecified Assessment and Plan: Pt reports depression, passive SI with some reported improvement. Increase Sertraline to 75 mg daily. MOCA today - Dementia range.(16.2-Alzheimer's; 22.1 MCI; 26 WNL) B12, Folate, TSH, RPR, Iron Profile (2) Schizoaffective disorder: Status: Acute Code(s): F25.9 - Schizoaffective disorder, unspecified (3) HIV (human immunodeficiency virus infection): Status: Acute Code(s): B20 - Human immunodeficiency virus [HIV] disease (4) Cocaine use disorder, severe, dependence: Status: Acute Code(s): F14.20 - Cocaine dependence, uncomplicated (5) Opioid use disorder, severe, in early remission, on maintenance therapy, dependence: Status: Acute Code(s): F11.21 - Opioid dependence, in remission Greater than 50% of the session was spent on counseling and/or coordination of care Reason for contiued inpatient stay Substantial Risk for: harm to self, inability to function, rapid decompensation and med/psych decompensation
--- NOTE | 2020-06-13 14:52 | PC.NURSE ---
Pt participated in [facility] screen on this date, scored 18/30, indicating cognition is below normal limits, Nurse and [employer] made aware.
[2020-06-13 18:55] VITALS: BP 114/57; PULSE 91; TEMP 36.1
[2020-06-13] MEDS: Mirtazapine 15 MG TABLET PO (20:18)
[2020-06-13] MEDS: Benztropine Mesylate 1 MG TABLET PO (20:19)
[2020-06-13] MEDS: QUEtiapine Fumarate 200 MG TABLET PO (20:19)
[2020-06-14] MEDS: hydrOXYzine HCL 25 MG TABLET PO (01:49)
[2020-06-14] MEDS: traZODone HCL 50 MG TABLET PO (01:49)
[2020-06-14 06:25] VITALS: BP 137/89; PULSE 73; RESP 18; TEMP 36.3; O2SAT 97
[2020-06-14] MEDS: Buprenorphine/Naloxone 8/2 mg FILM 1 FILM SUBLINGUAL ×2 (08:18→20:41)
[2020-06-14] MEDS: Sertraline HCL 25 MG TABLET 75 MG PO (08:18)
[2020-06-14 08:38] LABS: Iron 78 mcg/dL (45-160); Percent Iron Saturation 28 % (15-50); Total Iron Binding Capacity 282 mcg/dL (228-428); Unsaturated Iron Binding 204 ug/dL
[2020-06-14 08:57] LABS: Thyroid Stimulating Hormone 2.06 uIU/mL (0.32-4.0)
--- NOTE | 2020-06-14 10:47 | HO.PSYCHPN ---
Subjective Subjective Date of Service: 06/14/20 Reason For Visit: Schizophrenia, Depression Interim History: Chart reviewed; case discussed with team. Vitals reviewed: WNL pt reports he's ok..alright... he says he's planning on discharging next week and says he needs a bus pass; he'll talk with SW on Tuesday. Pt denies SI, AVH and says he's sleeping well enough Medication Compliance: Yes Side effects from medications: No Mental Status Exam Mental Status Exam Narrative: Patient Appearance: Appropriate Patient Orientation: Person, Place, Time and Situation Level of Consciousness: Alert Patient Behavior: Appropriate, Cooperative; Good Eye Contact Mood Description: alright Affect Description: congruent, appropriate Patient Cognition Impaired: Yes Ability to Follow Directions: Good Memory Description: Remote Impaired and Episodic Impaired Hallucinations: None (denies) Delusions: no expressed Thought Process: linear and goal directed Thought Content: on pending discharge; no SI Judgement: Fair Diagnostics Vital Signs (24Hr): Vital Signs - 24 hr 06/13/20 11:43 06/13/20 18:55 06/14/20 06:25 Temperature 97.7 F 96.9 F 97.4 F Pulse Rate 66 91 73 Respiratory Rate 16 18 Blood Pressure 107/58 L 114/57 L 137/89 Pulse Oximetry 98 97 Body Mass Index 22.8 Labs Results: 06/11/20 13:51 06/11/20 13:51 Labs: Laboratory Results - last 48 hr 06/14/20 07:11 Iron 78 TIBC 282 % Saturation 28 Unsat Iron Binding 204 TSH 2.06 Medications Medications Current Medications Generic Name Dose Route Start Last Admin Trade Name Freq PRN Reason Stop Dose Admin Acetaminophen 650 mg 06/11/20 21:36 06/12/20 19:56 Acetaminophen 325 Mg Tablet PO 650 mg Q6H PRN Administration Headache/Pain Mild Scale (1-3) Al Hydroxide/Mg Hydroxide 30 ml 06/11/20 21:36 Magnesium Hydrox/Alum Hydrox 30 Ml Oral.Susp PO Q6H PRN Heartburn/Nausea Benztropine Mesylate 1 mg 06/11/20 21:36 06/13/20 20:19 Benztropine Mesylate 1 Mg Tablet PO 1 mg BEDTIME [facility] Administration Bictegravir/Emtricitabine/Tenofovir 1 tab 06/10/20 21:00 06/13/20 20:18 Bictegrav/Emtricit/Tenofov Ala 1 Tab Tablet PO 1 tab BEDTIME [facility] Administration Buprenorphine/Naloxone 1 film 06/10/20 10:30 06/14/20 08:18 Buprenorphine/Naloxone 8/2 Mg Film SUBLINGUAL 1 film BID [facility] Administration Hydroxyzine HCl 25 mg 06/11/20 21:36 06/14/20 01:49 Hydroxyzine Hcl 25 Mg Tablet PO 25 mg BEDTIME PRN Administration Anxiety Magnesium Hydroxide 30 ml 06/11/20 21:36 06/11/20 22:04 Milk Of Magnesia 30 Ml Oral.Susp PO 30 ml DAILY PRN Administration Constipation Mirtazapine 15 mg 06/10/20 21:00 06/13/20 20:18 Mirtazapine 15 Mg Tablet PO 15 mg BEDTIME [facility] Administration Nicotine Polacrilex 4 mg 06/11/20 21:36 Nicotine Polacrilex 2 Mg Gum BUCCAL Q2H PRN Nicotine Cravings Pharmacy Consult 1 each 06/10/20 04:04 Consult Rx Perform Med Rec MISCELLANE ONCE PRN Consult order Quetiapine Fumarate 200 mg 06/10/20 21:00 06/13/20 20:19 Quetiapine Fumarate 200 Mg Tablet PO 200 mg BEDTIME [facility] Administration Sertraline HCl 75 mg 06/14/20 09:00 06/14/20 08:18 Sertraline Hcl 25 Mg Tablet PO 75 mg DAILY [facility] Administration Trazodone HCl 50 mg 06/11/20 21:36 06/14/20 01:49 Trazodone Hcl 50 Mg Tablet PO 50 mg BEDTIME PRN Administration Insomnia Trimethoprim/Sulfamethoxazole 1 tab 06/10/20 10:30 06/14/20 08:18 Sulfamethox/Trimeth 400/80 1 Tab Tablet PO 1 tab DAILY [facility] Administration Allergies Allergies Allergy/AdvReac Type Severity Reaction Status Date / Time No Known Allergies Allergy Mild NO REACTION Verified 06/01/20 20:45 Assessment & Plan Assessment & Plan (1) Depression: Status: Acute Code(s): F32.9 - Major depressive disorder, single episode, unspecified Assessment and Plan: Impression: pt reports depression, SI reoslved; no AVH. Pt plans to DC soon no changes to primary team tx plan Pt reports depression, passive SI with some reported improvement. Sertraline to 75 mg daily. MOCA 18/30- Dementia range.(16.2-Alzheimer's; 22.1 MCI; 26 WNL) B12, Folate, TSH, RPR, Iron Profile (2) Schizoaffective disorder: Status: Acute Code(s): F25.9 - Schizoaffective disorder, unspecified (3) HIV (human immunodeficiency virus infection): Status: Acute Code(s): B20 - Human immunodeficiency virus [HIV] disease (4) Cocaine use disorder, severe, dependence: Status: Acute Code(s): F14.20 - Cocaine dependence, uncomplicated (5) Opioid use disorder, severe, in early remission, on maintenance therapy, dependence: Status: Acute Code(s): F11.21 - Opioid dependence, in remission Greater than 50% of the session was spent on counseling and/or coordination of care Reason for contiued inpatient stay Substantial Risk for: med/psych decompensation
[2020-06-14] MEDS: QUEtiapine Fumarate 200 MG TABLET PO (20:41)
[2020-06-14] MEDS: Benztropine Mesylate 1 MG TABLET PO (20:41)
[2020-06-14] MEDS: Mirtazapine 15 MG TABLET PO (20:41)
[2020-06-14 20:43] VITALS: BP 92/58; PULSE 77; TEMP 36.6
[2020-06-15] MEDS: Buprenorphine/Naloxone 8/2 mg FILM 1 FILM SUBLINGUAL ×2 (08:39→20:38)
[2020-06-15] MEDS: Sertraline HCL 25 MG TABLET 75 MG PO (08:39)
[2020-06-15 08:51] VITALS: BP 112/59; PULSE 73; RESP 16; TEMP 36.3; O2SAT 97
--- NOTE | 2020-06-15 09:05 | P.PNPSI_ITS ---
Subjective Subjective Date of Service: 06/15/20 Reason For Visit: Schizophrenia, Depression Interim History: Chart reviewed; case discussed with team. Vitals reviewed: WNL Patient says that he's good and denies any SI or aVH. He reports he's sleeping well. He mentions that his ensure did not come with meals and would like it continued; he informed assembly instructions writer that he's lost weight and needs it to be healthy. facilities maintenance engineer agreed to continue supplement. Otherwise, no complaints; appropriate with staff and peers staff reports that pt is more outgoing and friendly than on admission Mental Status Exam Mental Status Exam Narrative: Patient Appearance: Appropriate Patient Orientation: Person, Place, Time and Situation Level of Consciousness: Alert Patient Behavior: Appropriate, Cooperative; Good Eye Contact Mood Description: euthymic Affect Description: congruent, appropriate Patient Cognition Impaired: Yes Ability to Follow Directions: Good Memory Description: Remote Impaired and Episodic Impaired Hallucinations: None (denies) Delusions: no expressed Thought Process: linear and goal directed Thought Content: on pending discharge; no SI Judgement: Fair Diagnostics Vital Signs (24Hr): Vital Signs - 24 hr 06/14/20 20:43 06/15/20 08:51 Temperature 97.8 F 97.4 F Pulse Rate 77 73 Respiratory Rate 16 Blood Pressure 92/58 L 112/59 L Pulse Oximetry 97 Body Mass Index 22.8 Labs Results: 06/11/20 13:51 06/11/20 13:51 Labs: Laboratory Results - last 48 hr 06/14/20 07:11 Iron 78 TIBC 282 % Saturation 28 Unsat Iron Binding 204 TSH 2.06 Medications Medications Current Medications Generic Name Dose Route Start Last Admin Trade Name Freq PRN Reason Stop Dose Admin Acetaminophen 650 mg 06/11/20 21:36 06/12/20 19:56 Acetaminophen 325 Mg Tablet PO 650 mg Q6H PRN Administration Headache/Pain Mild Scale (1-3) Al Hydroxide/Mg Hydroxide 30 ml 06/11/20 21:36 Magnesium Hydrox/Alum Hydrox 30 Ml Oral.Susp PO Q6H PRN Heartburn/Nausea Benztropine Mesylate 1 mg 06/11/20 21:36 06/14/20 20:41 Benztropine Mesylate 1 Mg Tablet PO 1 mg BEDTIME VICENTE Administration Bictegravir/Emtricitabine/Tenofovir 1 tab 06/10/20 21:00 06/14/20 20:41 Bictegrav/Emtricit/Tenofov Ala 1 Tab Tablet PO 1 tab BEDTIME VICENTE Administration Buprenorphine/Naloxone 1 film 06/10/20 10:30 06/15/20 08:39 Buprenorphine/Naloxone 8/2 Mg Film SUBLINGUAL 1 film BID VICENTE Administration Hydroxyzine HCl 25 mg 06/11/20 21:36 06/14/20 01:49 Hydroxyzine Hcl 25 Mg Tablet PO 25 mg BEDTIME PRN Administration Anxiety Magnesium Hydroxide 30 ml 06/11/20 21:36 06/11/20 22:04 Milk Of Magnesia 30 Ml Oral.Susp PO 30 ml DAILY PRN Administration Constipation Mirtazapine 15 mg 06/10/20 21:00 06/14/20 20:41 Mirtazapine 15 Mg Tablet PO 15 mg BEDTIME VICENTE Administration Nicotine Polacrilex 4 mg 06/11/20 21:36 Nicotine Polacrilex 2 Mg Gum BUCCAL Q2H PRN Nicotine Cravings Pharmacy Consult 1 each 06/10/20 04:04 Consult Rx Perform Med Rec MISCELLANE ONCE PRN Consult order Quetiapine Fumarate 200 mg 06/10/20 21:00 06/14/20 20:41 Quetiapine Fumarate 200 Mg Tablet PO 200 mg BEDTIME VICENTE Administration Sertraline HCl 75 mg 06/14/20 09:00 06/15/20 08:39 Sertraline Hcl 25 Mg Tablet PO 75 mg DAILY VICENTE Administration Trazodone HCl 50 mg 06/11/20 21:36 06/14/20 01:49 Trazodone Hcl 50 Mg Tablet PO 50 mg BEDTIME PRN Administration Insomnia Trimethoprim/Sulfamethoxazole 1 tab 06/10/20 10:30 06/15/20 08:39 Sulfamethox/Trimeth 400/80 1 Tab Tablet PO 1 tab DAILY VICENTE Administration Allergies Allergies Allergy/AdvReac Type Severity Reaction Status Date / Time No Known Allergies Allergy Mild NO REACTION Verified 06/01/20 20:45 Assessment & Plan Assessment & Plan (1) Depression: Status: Acute Code(s): F32.9 - Major depressive disorder, single episode, unspecified Assessment and Plan: Impression: remains stable and continued resolution of symptoms of depression, SI, AVH. Pt plans to DC soon no changes to primary team tx plan Pt reports depression, passive SI with some reported improvement. Sertraline to 75 mg daily. MOCA 18/30- Dementia range.(16.2-Alzheimer's; 22.1 MCI; 26 WNL) B12, Folate, TSH, RPR, Iron Profile (2) Schizoaffective disorder: Status: Acute Code(s): F25.9 - Schizoaffective disorder, unspecified (3) HIV (human immunodeficiency virus infection): Status: Acute Code(s): B20 - Human immunodeficiency virus [HIV] disease (4) Cocaine use disorder, severe, dependence: Status: Acute Code(s): F14.20 - Cocaine dependence, uncomplicated (5) Opioid use disorder, severe, in early remission, on maintenance therapy, dependence: Status: Acute Code(s): F11.21 - Opioid dependence, in remission Greater than 50% of the session was spent on counseling and/or coordination of care Reason for contiued inpatient stay Substantial Risk for: stable for discharge (likely approaching; defer to primary team) and med/psych decompensation (concern for)
[2020-06-15] MEDS: Mirtazapine 15 MG TABLET PO (20:38)
[2020-06-15] MEDS: Benztropine Mesylate 1 MG TABLET PO (20:38)
[2020-06-15] MEDS: QUEtiapine Fumarate 200 MG TABLET PO (20:38)
[2020-06-15 20:41] VITALS: BP 108/66; PULSE 75; TEMP 36.7
[2020-06-15] MEDS: traZODone HCL 50 MG TABLET PO (23:51)
[2020-06-15] MEDS: hydrOXYzine HCL 25 MG TABLET PO (23:51)
[2020-06-16 03:44] LABS: Syphilis Screen Nonreactive (Nonreactive)
[2020-06-16 04:49] LABS: Folate 9.7 ng/mL (> or = 4.0); Vitamin B12 < 146 pg/mL (200-900)
[2020-06-16 06:45] VITALS: BP 103/60; PULSE 86; RESP 18; TEMP 36.5; O2SAT 95
[2020-06-16] MEDS: Buprenorphine/Naloxone 8/2 mg FILM 1 FILM SUBLINGUAL ×2 (08:11→20:17)
[2020-06-16] MEDS: Sertraline HCL 25 MG TABLET 75 MG PO (08:11)
[2020-06-16] MEDS: Cyanocobalamin (Vitamin B-12) 500 MCG TABLET PO (09:48)
--- NOTE | 2020-06-16 16:38 | HO.PSYCHPN ---
Subjective Subjective Date of Service: 06/16/20 Reason For Visit: Schizophrenia, Depression Subjective Notes: Conditional Voluntary Interim History: Pt nearing discharge. B12 level low at 146, iron profile WNL. B12 replacement initiated, pt tolerated without event. Pt reports depressive sx have improved. He denies SI, HI. Confusion persists-MOCA score 18. Pt plans to return to his rest home placement. Reports sleep and appetite are adequate. Medication Compliance: Yes Side effects from medications: No Attending Groups: Intermittent Review of Systems Review of Systems Yes all other systems are reviewed and are negative (denies) Reports confusion and Reports memory loss Psychiatric: Reports confusion, Reports difficulty concentrating and Reports memory loss Mental Status Exam Mental Status Exam Patient Appearance: Appropriate Patient Orientation: Person, Place, Time and Situation Level of Consciousness: Alert Patient Behavior: Appropriate, Talkative, Cooperative and Confused Mood Description: Cheerful Affect Description: Calm Patient Cognition Impaired: Yes Ability to Follow Directions: Fair Speech Pattern: Spontaneous Speech, Rambling and Soft-Spoken Memory Description: Episodic Impaired Hallucinations: None (denies) Delusions: Not Present Thought Process: Goal Oriented Thought Content: positive for Goal Oriented Depressive Symptoms: Thoughts of /Suicide (denies SI plan or intent) Judgement: Fair Diagnostics Vital Signs (24Hr): Vital Signs - 24 hr 06/15/20 20:41 06/16/20 06:45 Temperature 98.0 F 97.7 F Pulse Rate 75 86 Respiratory Rate 18 Blood Pressure 108/66 103/60 Pulse Oximetry 95 Body Mass Index 22.8 Labs Results: 06/11/20 13:51 06/11/20 13:51 Labs: Laboratory Results - last 48 hr 06/14/20 06/14/20 07:11 07:11 Vitamin B12 < 146 L Folate 9.7 T.pallidum Ab (EIA) Nonreactive Medications Medications Current Medications Generic Name Dose Route Start Last Admin Trade Name Freq PRN Reason Stop Dose Admin Acetaminophen 650 mg 06/11/20 21:36 06/12/20 19:56 Acetaminophen 325 Mg Tablet PO 650 mg Q6H PRN Administration Headache/Pain Mild Scale (1-3) Al Hydroxide/Mg Hydroxide 30 ml 06/11/20 21:36 Magnesium Hydrox/Alum Hydrox 30 Ml Oral.Susp PO Q6H PRN Heartburn/Nausea Benztropine Mesylate 1 mg 06/11/20 21:36 06/15/20 20:38 Benztropine Mesylate 1 Mg Tablet PO 1 mg BEDTIME VICENTE Administration Bictegravir/Emtricitabine/Tenofovir 1 tab 06/10/20 21:00 06/15/20 20:38 Bictegrav/Emtricit/Tenofov Ala 1 Tab Tablet PO 1 tab BEDTIME VICENTE Administration Buprenorphine/Naloxone 1 film 06/10/20 10:30 06/16/20 08:11 Buprenorphine/Naloxone 8/2 Mg Film SUBLINGUAL 1 film BID VICENTE Administration Cyanocobalamin 500 mcg 06/16/20 09:00 06/16/20 09:48 Cyanocobalamin (Vitamin B-12) 500 Mcg Tablet PO 500 mcg DAILY VICENTE Administration Hydroxyzine HCl 25 mg 06/11/20 21:36 06/15/20 23:51 Hydroxyzine Hcl 25 Mg Tablet PO 25 mg BEDTIME PRN Administration Anxiety Magnesium Hydroxide 30 ml 06/11/20 21:36 06/11/20 22:04 Milk Of Magnesia 30 Ml Oral.Susp PO 30 ml DAILY PRN Administration Constipation Mirtazapine 15 mg 06/10/20 21:00 06/15/20 20:38 Mirtazapine 15 Mg Tablet PO 15 mg BEDTIME VICENTE Administration Nicotine Polacrilex 4 mg 06/11/20 21:36 Nicotine Polacrilex 2 Mg Gum BUCCAL Q2H PRN Nicotine Cravings Pharmacy Consult 1 each 06/10/20 04:04 Consult Rx Perform Med Rec MISCELLANE ONCE PRN Consult order Quetiapine Fumarate 200 mg 06/10/20 21:00 06/15/20 20:38 Quetiapine Fumarate 200 Mg Tablet PO 200 mg BEDTIME VICENTE Administration Sertraline HCl 75 mg 06/14/20 09:00 06/16/20 08:11 Sertraline Hcl 25 Mg Tablet PO 75 mg DAILY VICENTE Administration Trazodone HCl 50 mg 06/11/20 21:36 06/15/20 23:51 Trazodone Hcl 50 Mg Tablet PO 50 mg BEDTIME PRN Administration Insomnia Trimethoprim/Sulfamethoxazole 1 tab 06/10/20 10:30 06/16/20 08:11 Sulfamethox/Trimeth 400/80 1 Tab Tablet PO 1 tab DAILY VICENTE Administration Allergies Allergies Allergy/AdvReac Type Severity Reaction Status Date / Time No Known Allergies Allergy Mild NO REACTION Verified 06/01/20 20:45 Assessment & Plan Assessment & Plan (1) Depression: Status: Acute Code(s): F32.9 - Major depressive disorder, single episode, unspecified Assessment and Plan: Impression: remains stable and continued resolution of symptoms of depression, SI, AVH. Pt plans to DC soon Sertraline at 75 mg daily tolerated MOCA 1830- Dementia range.(16.2-Alzheimer's; 22.1 MCI; 26 WNL) Cyanocobalamin 500 mg daily Probable discharge on 06/17/20. (2) Schizoaffective disorder: Status: Acute Code(s): F25.9 - Schizoaffective disorder, unspecified (3) HIV (human immunodeficiency virus infection): Status: Acute Code(s): B20 - Human immunodeficiency virus [HIV] disease (4) Cocaine use disorder, severe, dependence: Status: Acute Code(s): F14.20 - Cocaine dependence, uncomplicated (5) Opioid use disorder, severe, in early remission, on maintenance therapy, dependence: Status: Acute Code(s): F11.21 - Opioid dependence, in remission Greater than 50% of the session was spent on counseling and/or coordination of care Reason for contiued inpatient stay Substantial Risk for: harm to self, inability to function, rapid decompensation and med/psych decompensation
[2020-06-16 17:25] VITALS: BP 93/50; PULSE 78; TEMP 37.2
[2020-06-16 19:40] VITALS: BP 114/73; PULSE 85; TEMP 36.6
[2020-06-16] MEDS: Acetaminophen 325 MG TABLET 650 MG PO (20:13)
[2020-06-16] MEDS: QUEtiapine Fumarate 200 MG TABLET PO (20:15)
[2020-06-16] MEDS: Benztropine Mesylate 1 MG TABLET PO (20:16)
[2020-06-16] MEDS: Mirtazapine 15 MG TABLET PO (20:16)
[2020-06-17 06:00] VITALS: BP 109/66; PULSE 85; RESP 16; TEMP 36.3; O2SAT 98
[2020-06-17] MEDS: Cyanocobalamin (Vitamin B-12) 500 MCG TABLET PO (09:02)
[2020-06-17] MEDS: Sertraline HCL 25 MG TABLET 75 MG PO (09:02)
[2020-06-17] MEDS: Buprenorphine/Naloxone 8/2 mg FILM 1 FILM SUBLINGUAL ×2 (09:02→13:09)
--- NOTE | 2020-06-17 11:31 | P.DS_ITS ---
DS: Providers Provider Date of Service: 06/17/20 Date of admission: 06/11/20 20:35 Date of discharge: 06/17/20 Primary care physician: [facility] Admitting clinician: Christie Mann Attending physician on admission: Jan Gracia Attending physician on discharge: Jan Gracia Discharging clinician: Christie Mann DS: Diagnosis Discharge Diagnosis (1) Depression: Status: Acute (2) Schizoaffective disorder: Status: Acute Problem details: 59 yo male who reports symptoms of increasing depression with SI with plan to walk into traffic and cause an MVA. Pt has been using cocaine and opiates [employer]. He reports current stressors as living in a rest home where he is not satisfied with his living conditions, hx of loss of son to suicide in 2010, loss of his mother, poor medication compliance and HIV with some impairment in his cognition. Pt has a supportive sister who attempts to assist him, however he is not always forthcoming, thus she is limited in her ability to assist him. (3) HIV (human immunodeficiency virus infection): Status: Acute (4) Cocaine use disorder, severe, dependence: Status: Acute (5) Opioid use disorder, severe, in early remission, on maintenance therapy, dependence: Status: Acute DS: Medications Discharge Medications Home Medications: Previous Rx's Medication Instructions Recorded Biktarvy 1 tab PO BEDTIME #30 tab 06/17/20 benztropine 1 mg PO BEDTIME #30 tab 06/17/20 cyanocobalamin (vitamin B-12) 500 mcg PO DAILY #30 tab 06/17/20 mirtazapine 15 mg PO BEDTIME 30 Days #30 tab 06/17/20 naloxone [Narcan] 4 mg INTRANASAL Q2M PRN #2 ea 06/17/20 quetiapine [Seroquel] 200 mg PO BEDTIME 30 Days #30 tab 06/17/20 sertraline 75 mg PO DAILY #30 tab 06/17/20 trazodone 50 mg PO BEDTIME PRN #30 tab 06/17/20 Discharge Plan Discharge Anticipated Discharge Date/Time: 06/17/20 13:00 Patient Disposition: Home, Self-Care Discharge Diagnosis: Schizoaffective Disorder-Depressed Opiate Use Disorder-Severe Stimulant Use Disorder (Cocaine)-Severe HIV with cognitive impairment Referrals: [facility] [Other] - 1 Week Suboxone Prescriber: Dr. Prabha Patel ([facility]) [Other] - 1 Week Daria Morales NP [Nurse Practitioner] - 06/24/20 9:00 am (via phone) Discharge Medications: New trazodone 50 mg Tablet 50 mg PO BEDTIME PRN (Reason: Insomnia) Qty: 30 RF: 0 cyanocobalamin (vitamin B-12) 500 mcg Tablet 500 mcg PO DAILY Qty: 30 RF: 0 sertraline 25 mg Tablet 75 mg PO DAILY Qty: 30 RF: 0 Narcan 4 mg/actuation spray,non-aerosol 4 mg intranasal Q2M PRN (Reason: opioid overdose) Qty: 2 RF: 0 Continued quetiapine [Seroquel] 200 mg tablet 200 mg PO BEDTIME 30 Days Qty: 30 RF: 0 benztropine 1 mg Tablet 1 mg PO BEDTIME Qty: 30 RF: 0 mirtazapine 15 mg Tablet 15 mg PO BEDTIME 30 Days Qty: 30 RF: 0 Biktarvy 50-200-25 mg tablet 1 tab PO BEDTIME Qty: 30 RF: 0 Discontinued sulfamethoxazole-trimethoprim [Bactrim] 400-80 mg Tablet 1 tab PO DAILY RF: 0 sertraline 50 mg Tablet 50 mg PO DAILY 30 Days Qty: 0 RF: 0 buprenorphine-naloxone [Suboxone] 8-2 mg film 1 strip sublingual BID RF: 0 triamcinolone acetonide 0.1 % cream 1 appl topical DAILY RF: 0 Discharge Orders: Discharge Order (Routine); Ordered 06/17/20 Ordered By: Christie Mann Diet: advance to usual diet Activity on Discharge: As tolerated Stand Alone Forms: Patient Portal Discharge page, Community Support Care Plan Goals: Stability of mood and thought process Sobriety Health Concerns: Schizoaffective Disorder Depression Opioid Use Disorder Stimulant Use Disorder (cocaine) HIV with cognitive impairment Plan of Treatment: Return to Rest Home setting Take medications as directed Attend all appointments Do not use substances, maintain sobriety Continue nutritional supplements on discharge- Ensure Follow up with your Suboxone provider for refills of 8/2 mg twice daily You will be given Narcan to use as needed for opiate overdose. Assessment: Alert, oriented to person, place, time. No sx of psychosis, Denies SI, HI MOCA =18 indicating cognitive impairment Patient Instructions: Trazodone (By mouth), Sertraline (By mouth), Benztropine Mesylate (By mouth), Mirtazapine (By mouth), Quetiapine (By mouth) Discharge Date/Time: 06/17/20 13:20 Mental Status Exam Mental Status Exam Patient Appearance: Appropriate Patient Orientation: Person, Place, Time and Situation Level of Consciousness: Alert Patient Behavior: Appropriate, Talkative and Cooperative Mood Description: Calm Affect Description: Calm Patient Cognition Impaired: Yes Ability to Follow Directions: Good Speech Pattern: Clear, Appropriate, Spontaneous Speech and Soft-Spoken Memory Description: Episodic Impaired Hallucinations: None Delusions: Not Present Thought Process: Goal Oriented Thought Content: positive for Goal Oriented Judgement: Fair Data Data Completed and Pending Completed studies during hospitalization [Text1]: 06/11/20 06/11/20 06/14/20 13:51 13:51 07:11 WBC 3.9 L RBC 4.45 L Hgb 13.7 L Hct 40.5 L MCV 91.0 MCH 30.8 MCHC 33.8 RDW 16.0 Plt Count 162 MPV 10.6 Immature Gran % (Auto) Cancelled Neut % (Auto) Cancelled Lymph % (Auto) Cancelled [place] % (Auto) Cancelled Eos % (Auto) Cancelled Baso % (Auto) Cancelled Lymph # (Auto) Cancelled [place] # (Auto) Cancelled Eos # (Auto) Cancelled Baso # (Auto) Cancelled Abs Immat Gran (auto) Cancelled Absolute Neuts (auto) Cancelled Absolute Nucleated RBC 0.000 Nucleated RBC % (auto) 0.0 Neutrophils % (Manual) 55 Band Neutrophils % 0 L Lymphocytes % (Manual) 29 Monocytes % (Manual) 14 H Eosinophils % (Manual) 2 Abs Neuts (Manual) 2.1 L Lymphocytes # (Manual) 1.1 Monocytes # (Manual) 0.5 Eosinophils # (Manual) 0.1 Smudge Cells PRESENT Platelet Estimate NORMAL Plt Morphology Comment NORMAL RBC Morphology NORMAL Sodium 138 Potassium 3.9 Chloride 105 Carbon Dioxide 26 Anion Gap 11 L BUN 23 H Creatinine 0.81 Estim Creat Clear Calc 83.9 Estimated GFR > 60 Random Glucose 108 Calcium 9.3 Iron 78 TIBC 282 % Saturation 28 Unsat Iron Binding 204 Total Bilirubin 0.3 AST 38 H D ALT 25 Alkaline Phosphatase 138 H D Total Protein 7.5 Albumin 3.5 Vitamin B12 Folate TSH 2.06 T.pallidum Ab (EIA) 06/14/20 06/14/20 07:11 07:11 WBC RBC Hgb Hct MCV MCH MCHC RDW Plt Count MPV Immature Gran % (Auto) Neut % (Auto) Lymph % (Auto) [place] % (Auto) Eos % (Auto) Baso % (Auto) Lymph # (Auto) [place] # (Auto) Eos # (Auto) Baso # (Auto) Abs Immat Gran (auto) Absolute Neuts (auto) Absolute Nucleated RBC Nucleated RBC % (auto) Neutrophils % (Manual) Band Neutrophils % Lymphocytes % (Manual) Monocytes % (Manual) Eosinophils % (Manual) Abs Neuts (Manual) Lymphocytes # (Manual) Monocytes # (Manual) Eosinophils # (Manual) Smudge Cells Platelet Estimate Plt Morphology Comment RBC Morphology Sodium Potassium Chloride Carbon Dioxide Anion Gap BUN Creatinine Estim Creat Clear Calc Estimated GFR Random Glucose Calcium Iron TIBC % Saturation Unsat Iron Binding Total Bilirubin AST ALT Alkaline Phosphatase Total Protein Albumin Vitamin B12 < 146 L Folate 9.7 TSH T.pallidum Ab (EIA) Nonreactive DS: Summary Status at Discharge Cognitive/behavioral status at discharge: Pt signed a conditional voluntary upon admission. His medication regime was re-established and Sertraline was titrated. Diagnostics indicated a low Vitamin B12 level and replacement was initiated. He completed the MOCA, scoring 18 indicating dementia sx. Pt was able to recompensate with team and milieu support and requested to return to his rest home, suboxone provider and out patient teams. His family will continue to work with him on finding appropriate placement alternatives. Functional status at discharge: independent ambulation Overall status at discharge: patient is progressing back to baseline Time Spent with Patient Time attestation: Total time spent providing and/or coordinating discharge services:35 Time spent: Greater than 30 minutes
--- NOTE | 2020-06-17 13:43 | PC.NURSE ---
Pt given PM dose of Suboxone,per order from Christie Mann, at around 1320, as pt is going to be discharged to home from the unit.
== END 2020-06-17 13:20 | disposition home or self-care (01) | DRG 750 ==
LOC: HO.ED 06-11 14:08 → HO.PM5 06-11 20:38
PROVIDERS: Physician Assistant Medical; Admitting Provider Psychiatry & Neurology Psychiatry; Emergency Provider Student in an Organized Health Care Education/Training Program; Visit Provider Clinical Nurse Specialist Psychiatric/Mental Health, Adult
DX: F25.9 Schizoaffective disorder, unspecified (principal); R45.851 Suicidal ideations; F11.20 Opioid dependence, uncomplicated; F14.20 Cocaine dependence, uncomplicated; Z21 Asymptomatic human immunodeficiency virus [HIV] infection status; Z91.14 Patient's other noncompliance with medication regimen; F17.210 Nicotine dependence, cigarettes, uncomplicated; Z20.822 Contact with and (suspected) exposure to COVID-19; Z71.6 Tobacco abuse counseling; Z79.899 Other long term (current) drug therapy
CPT/HCPCS: 36415; 80053; 80307; 82607; 82746; 83540; 84443; 85007; 85025; 85027; 86780; 87635; 93005; 99285

== ENCOUNTER 2020-07-08 14:50 | Emergency (ER) | payer MEDICAID, SELFPAY ==
--- NOTE | 2020-07-08 14:55 | ECG_ITS ---
Test Reason : GENERAL MEDICAL Blood Pressure : / mmHG Vent. Rate : 099 BPM Atrial Rate : 099 BPM P-R Int : 220 ms QRS Dur : 092 ms QT Int : 354 ms P-R-T Axes : 057 074 033 degrees QTc Int : 454 ms Sinus rhythm with 1st degree A-V block Slight ST elevation inferior leads, probably non-specific; Nonspecific ST and T wave abnormality Borderline ECG When compared with ECG of 11-JUN-2020 14:02, Vent. rate has increased BY 35 BPM Referred By: Lana Schwartz Electronically Signed By:SHEILA CAMERON
--- NOTE | 2020-07-08 14:56 | ED.GENADULT ---
HPI - General Adult General Chief complaint: ETOH/Substance Use Stated complaint: OD,NARCAN GIVEN W/GOOD RESULT Time Seen by Provider: 07/08/20 14:55 Source: EMS Mode of arrival: EMS Limitations: no limitations History of Present Illness HPI narrative: Patient was with his family. They noted him to be quite sleepy and they called EMS. Per EMS on arrival the patient was alert and oriented. He does admit to using both heroin and cocaine today. He did snort several bags. He denies additional substance use. No SI or HI. He does not want detox. No physical complaints Related Data Previous Rx's Medication Instructions Recorded Biktarvy 1 tab PO BEDTIME #30 tab 06/17/20 benztropine 1 mg PO BEDTIME #30 tab 06/17/20 cyanocobalamin (vitamin B-12) 500 mcg PO DAILY #30 tab 06/17/20 mirtazapine 15 mg PO BEDTIME 30 Days #30 tab 06/17/20 naloxone [Narcan] 4 mg INTRANASAL Q2M PRN #2 ea 06/17/20 quetiapine [Seroquel] 200 mg PO BEDTIME 30 Days #30 tab 06/17/20 sertraline 75 mg PO DAILY #30 tab 06/17/20 trazodone 50 mg PO BEDTIME PRN #30 tab 06/17/20 Allergies Allergy/AdvReac Type Severity Reaction Status Date / Time No Known Allergies Allergy Mild NO REACTION Verified 06/01/20 20:45 Review of Systems Review of Systems: Yes all other systems are reviewed and are negative Constitutional: Constitutional: Reports no additional constitutional complaints, Denies body ache(s), Denies chills, Denies fever(s), Denies headache(s) and Denies weakness Eyes: Eyes: Reports no additional eye complaints and Denies change in vision ENT: Reports system reviewed and no additional complaints, except as documented, Denies dizziness, Denies headache(s), Denies nasal congestion, Denies nasal discharge and Denies neck pain Cardiovascular: Cardiovascular: Reports no additional cardiovascular complaints, Denies chest pain, Denies leg edema and Denies dyspnea Respiratory: Respiratory: Reports no additional respiratory complaints, Denies cough and Denies dyspnea Gastrointestinal: Gastrointestinal: Reports no additional gastrointestinal complaints, Denies abdominal pain, Denies diarrhea, Denies nausea and Denies vomiting Genitourinary: Genitourinary: Denies urinary incontinence Musculoskeletal: Musculoskeletal: Reports no additional musculoskeletal complaints, Denies back pain, Denies arthralgias, Denies joint swelling, Denies neck pain, Denies numbness and Denies tingling Integumentary/Breasts: Skin/Breast: Reports system reviewed and no additional complaints, except as docu and Denies rash Neurologic: Reports system reviewed and no additional complaints, except as documented, Denies Abnormal speech present, Denies dizziness, Denies headache(s), Denies numbness, Denies tingling and Denies weakness PMFSH Past Medical History Attestation statement: The following information was validated with the patient. Source: old records reviewed and nursing notes reviewed Medical History AIDS Asthma Cocaine use disorder, severe, dependence Depression Hepatitis C HIV (human immunodeficiency virus infection) Opioid dependence Opioid use disorder, severe, in early remission, on maintenance therapy, dependence Schizoaffective disorder Tardive dyskinesia Social History Social History Household Members: Other Household Members Other:: rest home Housing: Other Housing Other:: [facility] Do you presently have visiting nurse or other home services: Yes (staff administers medications) Alcohol intake: current Alcohol intake frequency: a few times a month Alcohol type: beer and hard liquor Smoking Status: Current every day smoker Tobacco Type: Cigarette Packs Per Day: 0 Cigarettes Per Day: 6 Years Smoked: 50 Second Hand Smoke Exposure: Yes Substance Use Type: Crack/Cocaine and Heroin Advance Directives: No Advance Directives Information Provided: No Advance Directives Date on File: 01/29/20 service: No Sexual orientation: N/A Physical Exam Vital Signs: Vital Signs: Last Vital Signs Temp 97.1 F 07/08/20 14:59 Pulse 116 H 07/08/20 14:59 Resp 22 H 07/08/20 14:59 BP 121/89 07/08/20 14:59 Pulse Ox 97 07/08/20 14:59 Body Mass Index 24.3 Const: Other: Diaphoretic Anxious Moving all limbs General: cooperative, healthy appearing, comfortable and no acute distress Orientation/consciousness: patient oriented x3 Limitations: no limitations HENMT: Head: Yes normal to inspection Ears: hearing grossly normal bilaterally General nose exam: Normal external nose present Face and sinus: Yes normal facial exam Mouth: Normal oral and palatal mucosa present Throat: Yes posterior oropharynx normal Eyes: General: appearance normal, both eyes and all related structures Pupils: Equal, round and reactive pupils present Neck: Neck: Yes normal visual inspection Chest: Chest palpation & inspection: normal inspection of the chest Resp: Effort & Inspection: normal respiratory effort Auscultation: clear to auscultation bilaterally Cardio: Rate: tachycardic (Sinus tachycardia 116) Rhythm: regular rhythm Peripheral pulses: Peripheral pulses 2+ throughout GI: Inspection: Yes normal to inspection Palpation (GI): Soft to palpation and nontender Auscultation: normal bowel sounds Back/Spine/Pelvis: Thoracic/Lumbar Spine: thoracic and lumbar spine normal to inspection Skin: General skin exam: no rashes or lesions noted Neuro: General: patient oriented x3, no focal motor deficits and normal sensation to monofilament Cranial nerves: Yes Equal, round and reactive pupils present Cognition (Neuro): normal cognition Speech: No Abnormal speech present Gait exam (Neuro): Normal gait present Motor exam (neuro): 5/5 motor strength present throughout Extrem: General: Yes normal to inspection Course Course Course Narrative: 59-year-old male here after using both cocaine and heroin. Did not require Narcan prior to arrival. He has no physical complaints. No SI or HI. Not interested in detox. On arrival the patient is mildly tachycardic with diaphoresis and anxiety. Will check EKG. Give p.o. Ativan and reassess. 1700-EKG has artifact present is difficult to interpret. Will check repeat EKG. Sign out to Maico MURRY pending above. Medical Decision Making [facility] Narrative Medical decision making narrative: Polysubstance use ECG Data Attestation: I personally reviewed and interpreted this ECG as follows: Interpretation: NSR with 1st degree AV block. ARTIFACT present. unable to interpret Discharge Plan Discharge Clinical Impression: Opioid use disorder, severe, in early remission, on maintenance therapy, dependence, Cocaine use disorder, severe, dependence Prescriptions: No Action trazodone 50 mg Tablet 50 mg PO BEDTIME PRN (Reason: Insomnia) Qty: 30 RF: 0 cyanocobalamin (vitamin B-12) 500 mcg Tablet 500 mcg PO DAILY Qty: 30 RF: 0 sertraline 25 mg Tablet 75 mg PO DAILY Qty: 30 RF: 0 quetiapine [Seroquel] 200 mg tablet 200 mg PO BEDTIME 30 Days Qty: 30 RF: 0 benztropine 1 mg Tablet 1 mg PO BEDTIME Qty: 30 RF: 0 mirtazapine 15 mg Tablet 15 mg PO BEDTIME 30 Days Qty: 30 RF: 0 Biktarvy 50-200-25 mg tablet 1 tab PO BEDTIME Qty: 30 RF: 0 Narcan 4 mg/actuation spray,non-aerosol 4 mg intranasal Q2M PRN (Reason: opioid overdose) Qty: 2 RF: 0
[2020-07-08 14:59] VITALS: BP 121/89; PULSE 116; RESP 22; TEMP 36.2; O2SAT 97; BMI 24.3
[2020-07-08] MEDS: LORazepam 1 MG TABLET 2 MG PO (15:41)
--- NOTE | 2020-07-08 16:57 | ECG_ITS ---
Test Reason : REPEAT Blood Pressure : / mmHG Vent. Rate : 097 BPM Atrial Rate : 097 BPM P-R Int : 222 ms QRS Dur : 088 ms QT Int : 366 ms P-R-T Axes : 057 072 043 degrees QTc Int : 464 ms Sinus rhythm with 1st degree A-V block Otherwise normal ECG When compared with ECG of 08-JUL-2020 16:17, No significant change was found Referred By: Lana Schwartz Electronically Signed By:SHEILA CAMERON
[2020-07-08 17:09] LABS: Amphetamine Screen Urine Not Detected (Not Detect); Barbiturates, Urine Not Detected (Not Detect); Benzodiazepines Screen Urine Not Detected (Not Detect); Cannabinoid Screen Urine Not Detected (Not Detect); Cocaine Screen Urine POSITIVE (Not Detect); Opiate Screen Urine POSITIVE (Not Detect); Phencyclidine Screen Urine Not Detected (Not Detect)
== END 2020-07-08 20:05 | disposition home or self-care (01) ==
PROVIDERS: Nurse Practitioner Family; Emergency Provider Emergency Medicine
DX: F11.20 Opioid dependence, uncomplicated (principal); F14.20 Cocaine dependence, uncomplicated; R00.0 Tachycardia, unspecified; F41.9 Anxiety disorder, unspecified; R61 Generalized hyperhidrosis; B20 Human immunodeficiency virus [HIV] disease; B19.20 Unspecified viral hepatitis C without hepatic coma; F25.9 Schizoaffective disorder, unspecified; F32.9 Major depressive disorder, single episode, unspecified; F17.210 Nicotine dependence, cigarettes, uncomplicated; Z79.899 Other long term (current) drug therapy
CPT/HCPCS: 80307; 93005; 99283

== ENCOUNTER 2020-08-24 11:25 | Emergency (ER) | payer MEDICAID, SELFPAY ==
--- NOTE | ~2020-08-24 | CT_ITS ---
EXAMINATION: CT ANGIOGRAM OF THE CHEST WITH AND WITHOUT CONTRAST (CT PULMONARY ANGIOGRAM FOR PE) CLINICAL INFORMATION: Reason for Exam hypoxia, sob, h/o IVDA/HIV. r/o pe COMPARISON: None TECHNIQUE: Prior to contrast administration, noncontrast localization images were obtained. Subsequently, multidetector volumetric imaging was performed from the thoracic inlet to below the diaphragms following the administration of 80 mL Omnipaque 350 intravenous contrast. No contrast reaction reported Sagittal, coronal, and MIP oblique sagittal reformatted images were obtained on the CT workstation, uploaded to PACS, and reviewed. This CT examination was performed using dose optimization techniques as appropriate, variously including the following: *Automated exposure control *Adjustment of mA and/or kV according to patient size (this includes techniques or standardized protocols for targeted exams where dose is matched to indication/reason for exam; i.e. extremities or head) *Use of iterative reconstruction technique Total exam dose-length product 316.2 mGy-cm FINDINGS: Motion artifacts. QUALITY OF STUDY/CONTRAST BOLUS: Satisfactory. PULMONARY ARTERIES: No central or segmental pulmonary emboli. THORACIC AORTA: No aneurysm or dissection. LUNG: No focal consolidation, nodules or masses. PLEURA: No pleural effusion or pneumothorax. MEDIASTINUM: No evidence of any mediastinal or hilar lymphadenopathy. Coronary arterial calcifications are seen. No evidence of septal bowing or right heart strain. CHEST WALL/AXILLA: No axillary or internal mammary lymphadenopathy. OSSEOUS STRUCTURES: No acute or suspicious osseous abnormality. UPPER ABDOMEN: Unremarkable. No reflux of contrast into the hepatic veins to suggest elevated right heart pressures. CT/CT angio chest PE protocol IMPRESSION: 1. Evaluation is slightly limited due to motion related artifacts. 2. No CT evidence of any pulmonary thromboembolism is present. Bilateral clear lungs. VTE: Negative.
--- NOTE | ~2020-08-24 | XR_ITS ---
EXAMINATION: XR CHEST CLINICAL INFORMATION: Weakness, hypoxia COMPARISON: Chest x-ray on 08/23/2019 TECHNIQUE: 2 views of the chest were obtained. FINDINGS: No significant abnormality is noted involving the heart, lungs, mediastinum, bony thorax or soft tissues. XR/XR chest 2V IMPRESSION: Unremarkable examination.
[2020-08-24 11:31] VITALS: BP 118/67; BP 134/70; PULSE 104; PULSE 106; RESP 16; TEMP 37.1; O2SAT 88; O2SAT 95; BMI 23.5
--- NOTE | 2020-08-24 11:33 | ECG_ITS ---
Test Reason : SUBSTANCE ABUSE Blood Pressure : / mmHG Vent. Rate : 089 BPM Atrial Rate : 089 BPM P-R Int : 202 ms QRS Dur : 088 ms QT Int : 364 ms P-R-T Axes : 059 071 031 degrees QTc Int : 442 ms Normal sinus rhythm Nonspecific ST and T wave abnormality Borderline EKG When compared with ECG of 08-JUL-2020 17:16, No significant change was found Referred By: Lana Schwartz Electronically Signed By:SHEILA CAMERON
--- NOTE | 2020-08-24 11:34 | ED_ITS ---
HPI - Psych General Chief Complaint: ETOH/Substance Use <Lana Schwartz NP - Last Filed: 08/24/20 17:35> Stated Complaint: CRISIS <Lana Schwartz NP - Last Filed: 08/24/20 17:35> Time Seen by Provider: 08/24/20 11:32 <Lana Schwartz NP - Last Filed: 08/24/20 17:35> Source: patient <Lana Schwartz NP - Last Filed: 08/24/20 17:35> Mode of arrival: ambulatory <Lana Schwartz NP - Last Filed: 08/24/20 17:35> Limitations: no limitations <Lana Schwartz NP - Last Filed: 08/24/20 17:35> History of Present Illness HPI Narrative: 60-year-old male with a past medical history of depression, schizoaffective disorder, HIV, polysubstance use here with complaints of suicidal thoughts with plan to overdose on drugs. He tells me he has been very depressed recently. He is homeless. He has been taking his Biktarvy. He has no physical complaints. He is very agitated on arrival. Provides limited history of present illness and refuses to answer questions about substance use. Under review of chart patient has a history of both cocaine and heroin use. He has been known to use IV heroin. <Lana Schwartz NP - Last Filed: 08/24/20 17:35> Related Data Home Medications: Previous Rx's Medication Instructions Recorded Biktarvy 1 tab PO BEDTIME #30 tab 06/17/20 benztropine 1 mg PO BEDTIME #30 tab 06/17/20 cyanocobalamin (vitamin B-12) 500 mcg PO DAILY #30 tab 06/17/20 mirtazapine 15 mg PO BEDTIME 30 Days #30 tab 06/17/20 naloxone [Narcan] 4 mg INTRANASAL Q2M PRN #2 ea 06/17/20 quetiapine [Seroquel] 200 mg PO BEDTIME 30 Days #30 tab 06/17/20 sertraline 75 mg PO DAILY #30 tab 06/17/20 trazodone 50 mg PO BEDTIME PRN #30 tab 06/17/20 <Lana Schwartz NP - Last Filed: 08/24/20 17:35> Allergies/Adverse Reactions: Allergies Allergy/AdvReac Type Severity Reaction Status Date / Time No Known Allergies Allergy Mild NO REACTION Verified 06/01/20 20:45 <Lana Schwartz NP - Last Filed: 08/24/20 17:35> Review of Systems Review of Systems: Yes Unobtainable due to mental status (Agitated, answers few questions) <Lana Schwartz NP - Last Filed: 08/24/20 17:35> [facility] Past Medical History Attestation statement: The following information was validated with the patient. <Lana Schwartz NP - Last Filed: 08/24/20 17:35> Source: old records reviewed and nursing notes reviewed <Lana Schwartz NP - Last Filed: 08/24/20 17:35> Medical History: Medical History AIDS Asthma Cocaine use disorder, severe, dependence Depression Hepatitis C HIV (human immunodeficiency virus infection) Opioid dependence Opioid use disorder, severe, in early remission, on maintenance therapy, dependence Schizoaffective disorder Tardive dyskinesia <Lana Schwartz NP - Last Filed: 08/24/20 17:35> Social History Social History: Social History Household Members: Other Household Members Other:: rest home Housing: Other Housing Other:: [facility] Do you presently have visiting nurse or other home services: Yes (staff administers medications) Alcohol intake: current Alcohol intake frequency: a few times a month Alcohol type: beer and hard liquor Cigarette Packs Per Day: 0 Cigarettes Per Day: 6 Years Smoked: 50 Second Hand Smoke Exposure: Yes Substance Use Type: Crack/Cocaine and Heroin Advance Directives: Yes Advance Directives on File: Yes Advance Directives Date on File: 01/29/20 service: No Sexual orientation: N/A <Lana Schwartz NP - Last Filed: 08/24/20 17:35> Physical Exam Vital Signs: Vital Signs: Last Vital Signs Temp 99.3 F 08/24/20 21:45 Pulse 96 08/24/20 21:45 Resp 19 08/24/20 21:45 BP 144/88 H 08/24/20 21:45 Pulse Ox 94 08/24/20 21:45 Body Mass Index 23.5 <Lana Schwartz NP - Last Filed: 08/24/20 17:35> Vital Signs: Last Vital Signs Temp 99.3 F 08/24/20 21:45 Pulse 96 08/24/20 21:45 Resp 08/24/20 21:45 BP 144/88 H 08/24/20 21:45 Pulse Ox 94 08/24/20 21:45 Body Mass Index 23.5 <Julien Whitley MD - Last Filed: 08/24/20 22:47> Const: Other: Agitated, anxious, slurred speech Diaphoretic <Lnaa Schwartz NP - Last Filed: 08/24/20 17:35> General: awake <Lana Schwartz NP - Last Filed: 08/24/20 17:35> Orientation/consciousness: patient oriented x3 <Lana Schwartz NP - Last Filed: 08/24/20 17:35> Limitations: no limitations <Lana Schwartz NP - Last Filed: 08/24/20 17:35> HENMT: Head: Yes normal to inspection <Lana Schwartz NP - Last Filed: 08/24/20 17:35> Ears: hearing grossly normal bilaterally <Lana Schwartz NP - Last Filed: 08/24/20 17:35> General nose exam: Normal external nose present <Lana Schwartz NP - Last Filed: 08/24/20 17:35> Face and sinus: Yes normal facial exam <Lana Schwartz NP - Last Filed: 08/24/20 17:35> Mouth: Normal oral and palatal mucosa present <Lana Schwartz NP - Last Filed: 08/24/20 17:35> Throat: Yes posterior oropharynx normal <Lana Schwartz NP - Last Filed: 08/24/20 17:35> Eyes: General: appearance normal, both eyes and all related structures <Lana Schwartz NP - Last Filed: 08/24/20 17:35> Pupils: Equal, round and reactive pupils present (Bilateral 3 mm) <Lana Schwartz NP - Last Filed: 08/24/20 17:35> Neck: Neck: Yes normal visual inspection, Yes full ROM, Yes no lymphadenopathy and Yes no meningeal signs <Lana Schwartz NP - Last Filed: 08/24/20 17:35> Chest: Chest palpation & inspection: normal inspection of the chest <Helena Schwartz NP - Last Filed: 08/24/20 17:35> Resp: Effort & Inspection: normal respiratory effort <Lana Schwartz NP - Last Filed: 08/24/20 17:35> Auscultation: clear to auscultation bilaterally <Lana Schwartz NP - Last Filed: 08/24/20 17:35> Cardio: Rate: regular rate <Lana Schwartz NP - Last Filed: 08/24/20 17:35> Rhythm: regular rhythm <Lana Schwartz NP - Last Filed: 08/24/20 17:35> Peripheral pulses: Peripheral pulses 2+ throughout <Lana Schwartz NP - Last Filed: 08/24/20 17:35> GI: Inspection: Yes normal to inspection <TRIPP Mahoney Last F iled: 08/24/20 17:35> Palpation (GI): Soft to palpation and nontender <Lana Schwartz NP - Last Filed: 08/24/20 17:35> Auscultation: normal bowel sounds <Lana Schwartz NP - Last Filed: 08/14 03/06 17:35> Back/Spine/Pelvis: Thoracic/Lumbar Spine: thoracic and lumbar spine normal to inspection <Lana Schwartz NP - Last Filed: 08/24/20 17:35> Skin: General skin exam: no rashes or lesions noted <Lana Schwartz NP - Last Filed: 08/24/20 17:35> Neuro: General: patient oriented x3, moves all extremities and no meningeal signs <Lana Schwartz NP - Last Filed: 08/24/20 17:35> Cranial nerves: Yes Equal, round and reactive pupils present (Bilateral 3 mm) <Lana Schwartz NP - Last Filed: 08/24/20 17:35> Sensory Exam: Normal double simultaneous stimulation for sensation <Lana Schwartz NP - Last Filed: 08/24/20 17:35> Extrem: General: Yes normal to inspection <Lana Schwartz NP - Last Filed: 08/24/20 17:35> Course Course Course Narrative: 60-year-old male here with complaints of suicidal thoughts with plan to overdose on drugs. On arrival the patient is quite anxious and agitated however he is alert. He has no physical complaints but is noted to be hypoxic down to 87% on room air. Due to his history of IV drug abuse and HIV will check labs, chest x-ray, COVID screen. Once medically cleared will need a crisis evaluation. 1350-chest x-ray read as normal. Continued hypoxia with shortness of breath. Will check CTA to rule out PE versus underlying pneumonia 1730-CTA negative. Pulse oximeter 92% RA with no tachypnea. Heart rate improved. Hypoxia likely substance related. Repeat troponin pending. If delta patient will be medically cleared for BHN evaluation. 1800-Sign out to [facility] pending repeat troponin and BHN evaluation. Placed in physician observation pending disposition. <Lana Schwartz NP - Last Filed: 08/24/20 17:35> MDM - Psych MDM Narrative Medical decision making narrative: Patient denies any suicidal ideation at this time asking for food since he came had multiple meals had cocaine and opiate in the system. At this time patient alert orient x3 denies any significant suicidal ideation will discharge patient home advised to follow-up with therapist as outpatient <Julien Whitley MD - Last Filed: 08/24/20 22:47> Medical Records Attestation: I reviewed the patient's medical records. <Lana Schwartz NP - Last Filed: 08/24/20 17:35> I reviewed the patient's medical records. <Julien Whitley MD - Last Filed: 08/24/20 22:47> Lab Data Attestation: I reviewed the patient's lab results. <Lana Schwartz NP - Last Filed: 08/24/20 17:35> Result diagrams: : 08/24/20 12:14 08/24/20 12:15 <Lana Schwartz NP - Last Filed: 08/24/20 17:35> Labs: Lab Results 08/24/20 08/24/20 08/24/20 Range/Units 12:14 12:14 12:14 WBC 7.5 (4.8-10.8) X10*3/uL RBC 4.19 L (4.60-5.80) X10*6/uL Hgb 12.6 L (14.0-18.0) g/dl Hct 37.4 L (42-52) % MCV 89.3 (80-98) fL MCH 30.1 (27.0-33.0) pg MCHC 33.7 (31.0-36.0) g/dl RDW 15.8 (11.0-16.0) % Plt Count 167 (160-400) X10*3/uL MPV 10.0 (9.4-12.4) fL Immature Gran % (Auto) 0.5 H (0.0-0.4) % Neut % (Auto) 75.5 H (45-73) % Lymph % (Auto) 10.9 L (20-40) % Geary % (Auto) 11.9 H (2-11) % Eos % (Auto) 0.5 (0-4) % Baso % (Auto) 0.7 (0-2) % Lymph # (Auto) 0.8 L (1.2-4.9) X10*3/uL Geary # (Auto) 0.9 (0.1-1.2) X10*3/uL Eos # (Auto) 0.0 (0.0-0.4) X10*3/uL Baso # (Auto) 0.1 (0.0-0.2) X10*3/uL Abs Immat Gran (auto) 0.04 H (0.00-0.03) X10*3/uL Absolute Neuts (auto) 5.6 (2.0-8.3) X10*3/uL Absolute Nucleated RBC 0.000 (0.0-0.012) X10*3/uL Nucleated RBC % (auto) 0.0 (0.0-0.2) /100WBC Sodium (135-145) mmol/L Potassium (3.3-5.1) mmol/L Chloride (96-108) mmol/L Carbon Dioxide (22-29) mmol/L Anion Gap (12-20) BUN (9-16) mg/dL Creatinine (0.5-1.4) mg/dL Estim Creat Clear Calc Estimated GFR Random Glucose (60-115) mg/dL Lactic Acid (0.5-2.0) mmol/L Calcium (8.4-10.2) mg/dL Magnesium (1.6-2.6) mg/dL Total Bilirubin (0.0-1.0) mg/dL Direct Bilirubin (0.0-0.5) mg/dL AST (5-37) U/L ALT (0-40) U/L Alkaline Phosphatase (39-117) U/L Troponin I High Sens 19.0 (<3.5-35.0) ng/L Total Protein (6.5-8.0) g/dL Albumin (3.5-5.0) g/dL Urine Color Urine Appearance Urine pH (5.0-8.0) Ur Specific Whitakers (1.005-1.025) Urine Protein (NEG-TRACE) MG/DL Urine Glucose (UA) (NEG) MG/DL Urine Ketones (NEG) MG/DL Urine Blood (NEG) Urine Nitrite (NEG) Ur Leukocyte Esterase (NEG) Urine Opiates Screen (Not Detect) Ur Barbiturates Screen (Not Detect) Ur Phencyclidine Scrn (Not Detect) Ur Amphetamines Screen (Not Detect) U Benzodiazepines Scrn (Not Detect) Urine Cocaine Screen (Not Detect) U Marijuana (THC) Screen (Not Detect) Ethyl Alcohol < 10 mg/dL COVID-19 (NEETU) (Negative) COVID-19 Clin Com 08/24/20 08/24/20 08/24/20 Range/Units 12:15 12:15 12:15 WBC (4.8-10.8) X10*3/uL RBC (4.60-5.80) X10*6/uL Hgb (14.0-18.0) g/dl Hct (42-52) % MCV (80-98) fL MCH (27.0-33.0) pg MCHC (31.0-36.0) g/dl RDW (11.0-16.0) % Plt Count (160-400) X10*3/uL MPV (9.4-12.4) fL Immature Gran % (Auto) (0.0-0.4) % Neut % (Auto) (45-73) % Lymph % (Auto) (20-40) % Geary % (Auto) (2-11) % Eos % (Auto) (0-4) % Baso % (Auto) (0-2) % Lymph # (Auto) (1.2-4.9) X10*3/uL Geary # (Auto) (0.1-1.2) X10*3/uL Eos # (Auto) (0.0-0.4) X10*3/uL Baso # (Auto) (0.0-0.2) X10*3/uL Abs Immat Gran (auto) (0.00-0.03) X10*3/uL Absolute Neuts (auto) (2.0-8.3) X10*3/uL Absolute Nucleated RBC (0.0-0.012) X10*3/uL Nucleated RBC % (auto) (0.0-0.2) /100WBC Sodium 137 (135-145) mmol/L Potassium 4.1 (3.3-5.1) mmol/L Chloride 105 (96-108) mmol/L Carbon Dioxide 21 L (22-29) mmol/L Anion Gap 15 (12-20) BUN 15 (9-16) mg/dL Creatinine 0.84 (0.5-1.4) mg/dL Estim Creat Clear Calc 83.3 Estimated GFR > 60 Random Glucose 91 (60-115) mg/dL Lactic Acid 0.8 (0.5-2.0) mmol/L Calcium 8.9 (8.4-10.2) mg/dL Magnesium 1.9 (1.6-2.6) mg/dL Total Bilirubin 0.5 (0.0-1.0) mg/dL Direct Bilirubin 0.2 (0.0-0.5) mg/dL AST 37 (5-37) U/L ALT 24 (0-40) U/L Alkaline Phosphatase 100 D (39-117) U/L Troponin I High Sens (<3.5-35.0) ng/L Total Protein 6.8 (6.5-8.0) g/dL Albumin 3.6 (3.5-5.0) g/dL Urine Color Urine Appearance Urine pH (5.0-8.0) Ur Specific Whitakers (1.005-1.025) Urine Protein (NEG-TRACE) MG/DL Urine Glucose (UA) (NEG) MG/DL Urine Ketones (NEG) MG/DL Urine Blood (NEG) Urine Nitrite (NEG) Ur Leukocyte Esterase (NEG) Urine Opiates Screen (Not Detect) Ur Barbiturates Screen (Not Detect) Ur Phencyclidine Scrn (Not Detect) Ur Amphetamines Screen (Not Detect) U Benzodiazepines Scrn (Not Detect) Urine Cocaine Screen (Not Detect) U Marijuana (THC) Screen (Not Detect) Ethyl Alcohol mg/dL COVID-19 (NEETU) Negative (Negative) COVID-19 Clin Com See Note 08/24/20 08/24/20 08/24/20 Range/Units 17:31 21:56 21:56 WBC (4.8-10.8) X10*3/uL RBC (4.60-5.80) X10*6/uL Hgb (14.0-18.0) g/dl Hct (42-52) % MCV (80-98) fL MCH (27.0-33.0) pg MCHC (31.0-36.0) g/dl RDW (11.0-16.0) % Plt Count (160-400) X10*3/uL MPV (9.4-12.4) fL Immature Gran % (Auto) (0.0-0.4) % Neut % (Auto) (45-73) % Lymph % (Auto) (20-40) % Geary % (Auto) (2-11) % Eos % (Auto) (0-4) % Baso % (Auto) (0-2) % Lymph # (Auto) (1.2-4.9) X10*3/uL Geary # (Auto) (0.1-1.2) X10*3/uL Eos # (Auto) (0.0-0.4) X10*3/uL Baso # (Auto) (0.0-0.2) X10*3/uL Abs Immat Gran (auto) (0.00-0.03) X10*3/uL Absolute Neuts (auto) (2.0-8.3) X10*3/uL Absolute Nucleated RBC (0.0-0.012) X10*3/uL Nucleated RBC % (auto) (0.0-0.2) /100WBC Sodium (135-145) mmol/L Potassium (3.3-5.1) mmol/L Chloride (96-108) mmol/L Carbon Dioxide (22-29) mmol/L Anion Gap (12-20) BUN (9-16) mg/dL Creatinine (0.5-1.4) mg/dL Estim Creat Clear Calc Estimated GFR Random Glucose (60-115) mg/dL Lactic Acid (0.5-2.0) mmol/L Calcium (8.4-10.2) mg/dL Magnesium (1.6-2.6) mg/dL Total Bilirubin (0.0-1.0) mg/dL Direct Bilirubin (0.0-0.5) mg/dL AST (5-37) U/L ALT (0-40) U/L Alkaline Phosphatase (39-117) U/L Troponin I High Sens 26.3 (<3.5-35.0) ng/L Total Protein (6.5-8.0) g/dL Albumin (3.5-5.0) g/dL Urine Color YELLOW Urine Appearance CLEAR Urine pH 6.0 (5.0-8.0) Ur Specific Whitakers 1.020 (1.005-1.025) Urine Protein NEG (NEG-TRACE) MG/DL Urine Glucose (UA) NEG (NEG) MG/DL Urine Ketones NEG (NEG) MG/DL Urine Blood NEG (NEG) Urine Nitrite NEG (NEG) Ur Leukocyte Esterase NEG (NEG) Urine Opiates Screen POSITIVE H (Not Detect) Ur Barbiturates Screen Not Detected (Not Detect) Ur Phencyclidine Scrn Not Detected (Not Detect) Ur Amphetamines Screen Not Detected (Not Detect) U Benzodiazepines Scrn Not Detected (Not Detect) Urine Cocaine Screen POSITIVE H (Not Detect) U Marijuana (THC) Screen Not Detected (Not Detect) Ethyl Alcohol mg/dL COVID-19 (NEETU) (Negative) COVID-19 Clin Com <Lana Lana, CONVEYOR MAN - Last Filed: 08/24/20 17:35> Lab Results 08/24/20 08/24/20 08/24/20 Range/Units 12:14 12:14 12:14 WBC 7.5 (4.8-10.8) X10*3/uL RBC 4.19 L (4.60-5.80) X10*6/uL Hgb 12.6 L (14.0-18.0) g/dl Hct 37.4 L (42-52) % MCV 89.3 (80-98) fL MCH 30.1 (27.0-33.0) pg MCHC 33.7 (31.0-36.0) g/dl RDW 15.8 (11.0-16.0) % Plt Count 167 (160-400) X10*3/uL MPV 10.0 (9.4-12.4) fL Immature Gran % (Auto) 0.5 H (0.0-0.4) % Neut % (Auto) 75.5 H (45-73) % Lymph % (Auto) 10.9 L (20-40) % Geary % (Auto) 11.9 H (2-11) % Eos % (Auto) 0.5 (0-4) % Baso % (Auto) 0.7 (0-2) % Lymph # (Auto) 0.8 L (1.2-4.9) X10*3/uL Geary # (Auto) 0.9 (0.1-1.2) X10*3/uL Eos # (Auto) 0.0 (0.0-0.4) X10*3/uL Baso # (Auto) 0.1 (0.0-0.2) X10*3/uL Abs Immat Gran (auto) 0.04 H (0.00-0.03) X10*3/uL Absolute Neuts (auto) 5.6 (2.0-8.3) X10*3/uL Absolute Nucleated RBC 0.000 (0.0-0.012) X10*3/uL Nucleated RBC % (auto) 0.0 (0.0-0.2) /100WBC Sodium (135-145) mmol/L Potassium (3.3-5.1) mmol/L Chloride (96-108) mmol/L Carbon Dioxide (22-29) mmol/L Anion Gap (12-20) BUN (9-16) mg/dL Creatinine (0.5-1.4) mg/dL Estim Creat Clear Calc Estimated GFR Random Glucose (60-115) mg/dL Lactic Acid (0.5-2.0) mmol/L Calcium (8.4-10.2) mg/dL Magnesium (1.6-2.6) mg/dL Total Bilirubin (0.0-1.0) mg/dL Direct Bilirubin (0.0-0.5) mg/dL AST (5-37) U/L ALT (0-40) U/L Alkaline Phosphatase (39-117) U/L Troponin I High Sens 19.0 (<3.5-35.0) ng/L Total Protein (6.5-8.0) g/dL Albumin (3.5-5.0) g/dL Urine Color Urine Appearance Urine pH (5.0-8.0) Ur Specific Whitakers (1.005-1.025) Urine Protein (NEG-TRACE) MG/DL Urine Glucose (UA) (NEG) MG/DL Urine Ketones (NEG) MG/DL Urine Blood (NEG) Urine Nitrite (NEG) Ur Leukocyte Esterase (NEG) Urine Opiates Screen (Not Detect) Ur Barbiturates Screen (Not Detect) Ur Phencyclidine Scrn (Not Detect) Ur Amphetamines Screen (Not Detect) U Benzodiazepines Scrn (Not Detect) Urine Cocaine Screen (Not Detect) U Marijuana (THC) Screen (Not Detect) Ethyl Alcohol < 10 mg/dL COVID-19 (NEETU) (Negative) COVID-19 Clin Com 08/24/20 08/24/20 08/24/20 Range/Units 12:15 12:15 12:15 WBC (4.8-10.8) X10*3/uL RBC (4.60-5.80) X10*6/uL Hgb (14.0-18.0) g/dl Hct (42-52) % MCV (80-98) fL MCH (27.0-33.0) pg MCHC (31.0-36.0) g/dl RDW (11.0-16.0) % Plt Count (160-400) X10*3/uL MPV (9.4-12.4) fL Immature Gran % (Auto) (0.0-0.4) % Neut % (Auto) (45-73) % Lymph % (Auto) (20-40) % Geary % (Auto) (2-11) % Eos % (Auto) (0-4) % Baso % (Auto) (0-2) % Lymph # (Auto) (1.2-4.9) X10*3/uL Geary # (Auto) (0.1-1.2) X10*3/uL Eos # (Auto) (0.0-0.4) X10*3/uL Baso # (Auto) (0.0-0.2) X10*3/uL Abs Immat Gran (auto) (0.00-0.03) X10*3/uL Absolute Neuts (auto) (2.0-8.3) X10*3/uL Absolute Nucleated RBC (0.0-0.012) X10*3/uL Nucleated RBC % (auto) (0.0-0.2) /100WBC Sodium 137 (135-145) mmol/L Potassium 4.1 (3.3-5.1) mmol/L Chloride 105 (96-108) mmol/L Carbon Dioxide 21 L (22-29) mmol/L Anion Gap 15 (12-20) BUN 15 (9-16) mg/dL Creatinine 0.84 (0.5-1.4) mg/dL Estim Creat Clear Calc 83.3 Estimated GFR > 60 Random Glucose 91 (60-115) mg/dL Lactic Acid 0.8 (0.5-2.0) mmol/L Calcium 8.9 (8.4-10.2) mg/dL Magnesium 1.9 (1.6-2.6) mg/dL Total Bilirubin 0.5 (0.0-1.0) mg/dL Direct Bilirubin 0.2 (0.0-0.5) mg/dL AST 37 (5-37) U/L ALT 24 (0-40) U/L Alkaline Phosphatase 100 D (39-117) U/L Troponin I High Sens (<3.5-35.0) ng/L Total Protein 6.8 (6.5-8.0) g/dL Albumin 3.6 (3.5-5.0) g/dL Urine Color Urine Appearance Urine pH (5.0-8.0) Ur Specific Whitakers (1.005-1.025) Urine Protein (NEG-TRACE) MG/DL Urine Glucose (UA) (NEG) MG/DL Urine Ketones (NEG) MG/DL Urine Blood (NEG) Urine Nitrite (NEG) Ur Leukocyte Esterase (NEG) Urine Opiates Screen (Not Detect) Ur Barbiturates Screen (Not Detect) Ur Phencyclidine Scrn (Not Detect) Ur Amphetamines Screen (Not Detect) U Benzodiazepines Scrn (Not Detect) Urine Cocaine Screen (Not Detect) U Marijuana (THC) Screen (Not Detect) Ethyl Alcohol mg/dL COVID-19 (NEETU) Negative (Negative) COVID-19 Clin Com See Note 08/24/20 08/24/20 08/24/20 Range/Units 17:31 21:56 21:56 WBC (4.8-10.8) X10*3/uL RBC (4.60-5.80) X10*6/uL Hgb (14.0-18.0) g/dl Hct (42-52) % MCV (80-98) fL MCH (27.0-33.0) pg MCHC (31.0-36.0) g/dl RDW (11.0-16.0) % Plt Count (160-400) X10*3/uL MPV (9.4-12.4) fL Immature Gran % (Auto) (0.0-0.4) % Neut % (Auto) (45-73) % Lymph % (Auto) (20-40) % Geary % (Auto) (2-11) % Eos % (Auto) (0-4) % Baso % (Auto) (0-2) % Lymph # (Auto) (1.2-4.9) X10*3/uL Geary # (Auto) (0.1-1.2) X10*3/uL Eos # (Auto) (0.0-0.4) X10*3/uL Baso # (Auto) (0.0-0.2) X10*3/uL Abs Immat Gran (auto) (0.00-0.03) X10*3/uL Absolute Neuts (auto) (2.0-8.3) X10*3/uL Absolute Nucleated RBC (0.0-0.012) X10*3/uL Nucleated RBC % (auto) (0.0-0.2) /100WBC Sodium (135-145) mmol/L Potassium (3.3-5.1) mmol/L Chloride (96-108) mmol/L Carbon Dioxide (22-29) mmol/L Anion Gap (12-20) BUN (9-16) mg/dL Creatinine (0.5-1.4) mg/dL Estim Creat Clear Calc Estimated GFR Random Glucose (60-115) mg/dL Lactic Acid (0.5-2.0) mmol/L Calcium (8.4-10.2) mg/dL Magnesium (1.6-2.6) mg/dL Total Bilirubin (0.0-1.0) mg/dL Direct Bilirubin (0.0-0.5) mg/dL AST (5-37) U/L ALT (0-40) U/L Alkaline Phosphatase (39-117) U/L Troponin I High Sens 26.3 (<3.5-35.0) ng/L Total Protein (6.5-8.0) g/dL Albumin (3.5-5.0) g/dL Urine Color YELLOW Urine Appearance CLEAR Urine pH 6.0 (5.0-8.0) Ur Specific Whitakers 1.020 (1.005-1.025) Urine Protein NEG (NEG-TRACE) MG/DL Urine Glucose (UA) NEG (NEG) MG/DL Urine Ketones NEG (NEG) MG/DL Urine Blood NEG (NEG) Urine Nitrite NEG (NEG) Ur Leukocyte Esterase NEG (NEG) Urine Opiates Screen POSITIVE H (Not Detect) Ur Barbiturates Screen Not Detected (Not Detect) Ur Phencyclidine Scrn Not Detected (Not Detect) Ur Amphetamines Screen Not Detected (Not Detect) U Benzodiazepines Scrn Not Detected (Not Detect) Urine Cocaine Screen POSITIVE H (Not Detect) U Marijuana (THC) Screen Not Detected (Not Detect) Ethyl Alcohol mg/dL COVID-19 (NEETU) (Negative) COVID-19 Clin Com <Julien Whitley MD - Last Filed: 08/24/20 22:47> Imaging Data Chest x-ray: Attestation: I personally reviewed and interpreted this imaging study as follows: <Lana Schwartz NP - Last Filed: 08/24/20 17:35> Radiologist's impression: EXAMINATION: XR CHEST CLINICAL INFORMATION: Weakness, hypoxia COMPARISON: Chest x-ray on 08/23/2019 TECHNIQUE: 2 views of the chest were obtained. FINDINGS: No significant abnormality is noted involving the heart, lungs, mediastinum, bony thorax or soft tissues. XR/XR chest 2V IMPRESSION: Unremarkable examination. <Lana Schwartz NP - Last Filed: 08/24/20 17:35> CT scan - chest: Attestation: I personally reviewed and interpreted this imaging study as follows: <Lana Schwartz NP - Last Filed: 08/24/20 17:35> Radiologist's impression: IMPRESSION: 1. Evaluation is slightly limited due to motion related artifacts. 2. No CT evidence of any pulmonary thromboembolism is present. Bilateral clear lungs. VTE: Negative. <Lana Schwartz NP - Last Filed: 08/24/20 17:35> ECG Data Attestation: I personally reviewed and interpreted this ECG as follows: <Lana greco NP - Last Filed: 08/24/20 17:35> ECG interpretation date: 08/24/20 <Lana Schwartz NP - Last Filed: 08/24/20 17:35> ECG interpretation time: 12:24 <Lana Schwartz NP - Last Filed: 08/24/20 17:35> Interpretation: Normal sinus rhythm with a rate of 89, normal SC, normal QRS, normal QT <Lana Schwartz NP - Last Filed: 08/24/20 17:35> Discharge Plan Discharge Clinical Impression: Polysubstance (including opioids) dependence, daily use <Lana Schwartz NP - Last Filed: 08/24/20 17:35> Patient Disposition: Home, Self-Care <Lana Schwartz NP - Last Filed: 08/24/20 17:35> Instructions: Narcotic Use Disorder (ED) <Lana Schwartz NP - Last Filed: 08/24/20 17:35> Additional Instructions: Follow-up with detox <Lana Schwartz NP - Last Filed: 08/24/20 17:35> Prescriptions: No Action trazodone 50 mg Tablet 50 mg PO BEDTIME PRN (Reason: Insomnia) Qty: 30 RF: 0 cyanocobalamin (vitamin B-12) 500 mcg Tablet 500 mcg PO DAILY Qty: 30 RF: 0 sertraline 25 mg Tablet 75 mg PO DAILY Qty: 30 RF: 0 quetiapine [Seroquel] 200 mg tablet 200 mg PO BEDTIME 30 Days Qty: 30 RF: 0 benztropine 1 mg Tablet 1 mg PO BEDTIME Qty: 30 RF: 0 mirtazapine 15 mg Tablet 15 mg PO BEDTIME 30 Days Qty: 30 RF: 0 Biktarvy 50-200-25 mg tablet 1 tab PO BEDTIME Qty: 30 RF: 0 Narcan 4 mg/actuation spray,non-aerosol 4 mg intranasal Q2M PRN (Reason: opioid overdose) Qty: 2 RF: 0 <Lana Schwartz NP - Last Filed: 08/24/20 17:35>
[2020-08-24 12:22] LABS: MANUAL DIFF FLAG NO
[2020-08-24 12:28] LABS: Basophils Absolute Auto 0.1 X10*3/uL (0.0-0.2); Basophils Percent Auto 0.7 % (0-2); Eosinophils Percent Auto 0.5 % (0-4); Hematocrit 37.4 % (42-52); Hemoglobin 12.6 g/dl (14.0-18.0); Imm Gran Abs Auto 0.04 X10*3/uL (0.00-0.03); Imm Gran Pct Auto 0.5 % (0.0-0.4); Lymphocytes Absolute Auto 0.8 X10*3/uL (1.2-4.9); Lymphocytes Percent Auto 10.9 % (20-40); Mean Corpuscular HGB Conc 33.7 g/dl (31.0-36.0); Mean Corpuscular Hemoglobin 30.1 pg (27.0-33.0); Mean Corpuscular Volume 89.3 fL (80-98); Monocytes Absolute Auto 0.9 X10*3/uL (0.1-1.2); Monocytes Percent Auto 11.9 % (2-11); Neutrophils Absolute Auto 5.6 X10*3/uL (2.0-8.3); Neutrophils Percent Auto 75.5 % (45-73); Platelet Count 167 X10*3/uL (160-400); Red Blood Count 4.19 X10*6/uL (4.60-5.80); Red Cell Distribution Width 15.8 % (11.0-16.0); White Blood Count 7.5 X10*3/uL (4.8-10.8)
[2020-08-24 12:38] LABS: Lactic Acid 0.8 mmol/L (0.5-2.0)
[2020-08-24 12:39] LABS: COVID-19 Test Negative (Negative); IDNOW Serial# 9DD0AD1C
[2020-08-24 12:42] LABS: Ethanol < 10 mg/dL
--- NOTE | 2020-08-24 13:11 | PC.NURSE ---
Needle fell out of patient's pants while getting changed. Security at bedside to collect patient's belongings.
[2020-08-24 13:35] LABS: Alanine Aminotransferase 24 U/L (0-40); Albumin Level 3.6 g/dL (3.5-5.0); Alkaline Phosphatase 100 U/L (39-117); Anion Gap 15 (12-20); Aspartate Amino Transferase 37 U/L (5-37); Bilirubin Direct 0.2 mg/dL (0.0-0.5); Bilirubin Total 0.5 mg/dL (0.0-1.0); Blood Urea Nitrogen 15 mg/dL (9-16); Calcium 8.9 mg/dL (8.4-10.2); Carbon Dioxide 21 mmol/L (22-29); Chloride 105 mmol/L (96-108); Creatinine Clr Calc Pharmacy 83.3; Estimated Glomerular Filt Rate > 60; Glucose Random 91 mg/dL (60-115); Potassium 4.1 mmol/L (3.3-5.1); Sodium 137 mmol/L (135-145); Total Protein 6.8 g/dL (6.5-8.0)
[2020-08-24 14:25] LABS: Magnesium 1.9 mg/dL (1.6-2.6)
[2020-08-24 16:00] VITALS: PULSE 89; RESP 18; O2SAT 92
[2020-08-24] MEDS: LORazepam 2 MG/ML VIAL IVPUSH (16:26)
[2020-08-24] MEDS: iohexoL 350 MG/ML 100 ML INFUS..BTL IV (16:54)
[2020-08-24 18:00] VITALS: RESP 18
[2020-08-24 18:07] LABS: Troponin-I High Sensitivity 26.3 ng/L (<3.5-35.0)
--- NOTE | 2020-08-24 18:38 | PC.NURSE ---
Complted and sent smartsheet to [facility] for patient
--- NOTE | 2020-08-24 20:24 | PC.NURSE ---
This RN contacted [facility] and spoke to Nicole. Per Nicole, no clinician available until 2300 tonight and this pt is first on list to be seen.
[2020-08-24 21:45] VITALS: BP 144/88; PULSE 96; RESP 19; TEMP 37.4; O2SAT 94
[2020-08-24 22:14] LABS: Glucose Urine UA NEG (NEG); Leukocyte Esterase Urine NEG (NEG); Nitrite Urine NEG (NEG); Urine Blood NEG (NEG); Urine Ketones NEG (NEG); Urine Protein NEG (NEG-TRACE)
[2020-08-24 22:29] LABS: Appearance Urine CLEAR; Color Urine YELLOW
[2020-08-24 22:38] LABS: Amphetamine Screen Urine Not Detected (Not Detect); Barbiturates, Urine Not Detected (Not Detect); Benzodiazepines Screen Urine Not Detected (Not Detect); Cannabinoid Screen Urine Not Detected (Not Detect); Cocaine Screen Urine POSITIVE (Not Detect); Opiate Screen Urine POSITIVE (Not Detect); Phencyclidine Screen Urine Not Detected (Not Detect)
--- NOTE | 2020-08-24 22:48 | PC.NURSE ---
pt denies si or hi at this time. at [facility] for re-eval. plan for discharge. pt agreeable at this time.
== END 2020-08-24 23:21 | disposition home or self-care (01) ==
PROVIDERS: Nurse Practitioner Family; Emergency Provider Emergency Medicine
DX: F11.20 Opioid dependence, uncomplicated (principal); F14.20 Cocaine dependence, uncomplicated; F32.9 Major depressive disorder, single episode, unspecified; F25.9 Schizoaffective disorder, unspecified; R06.02 Shortness of breath; R09.02 Hypoxemia; B20 Human immunodeficiency virus [HIV] disease; Z20.822 Contact with and (suspected) exposure to COVID-19; Z59.0 Homelessness
CPT/HCPCS: 36415; 71046; 71275; 80048; 80076; 80307; 81003; 82077; 83605; 83735; 84484; 85025; 87040; 87077; 87205; 87635; 93005; 96374; 99285; J2060; Q9967

== ENCOUNTER 2020-09-17 18:11 | Inpatient (IN) | payer OTHER, MEDICAID, SELFPAY ==
[2020-09-17 18:20] VITALS: BP 117/67; BP 128/80; PULSE 102; PULSE 86; RESP 20; TEMP 36.8; O2SAT 95; O2SAT 97; BMI 24.6
--- NOTE | 2020-09-17 18:49 | ED_ITS ---
HPI - General Adult General Chief complaint: Psychiatric Symptoms Stated complaint: etoh/drug use Time Seen by Provider: 09/17/20 18:43 Source: patient Mode of arrival: ambulatory Limitations: no limitations History of Present Illness HPI narrative: Patient presents to the ED alcohol substance use. Patient admits using heroin cocaine. Does not want detox. Patient denies any physical complaints Related Data Previous Rx's Medication Instructions Recorded benztropine 1 mg tablet 1 mg PO BEDTIME #30 tab 06/17/20 bictegravir 50 mg-emtricitabine 1 tab PO BEDTIME #30 tab 06/17/20 200 mg-tenofovir alafenam 25 mg tablet (Biktarvy) cyanocobalamin (vitamin B-12) 500 500 mcg PO DAILY #30 tab 06/17/20 mcg tablet mirtazapine 15 mg tablet 15 mg PO BEDTIME 30 Days #30 tab 06/17/20 naloxone 4 mg/actuation nasal 4 mg INTRANASAL Q2M PRN #2 ea 06/17/20 spray (Narcan) quetiapine 200 mg tablet (Seroquel) 200 mg PO BEDTIME 30 Days #30 tab 06/17/20 sertraline 25 mg tablet 75 mg PO DAILY #30 tab 06/17/20 trazodone 50 mg tablet 50 mg PO BEDTIME PRN #30 tab 06/17/20 Allergies Allergy/AdvReac Type Severity Reaction Status Date / Time No Known Allergies Allergy Mild NO REACTION Verified 06/01/20 20:45 Review of Systems Review of Systems: Yes all other systems are reviewed and are negative Constitutional: Constitutional: Reports as per HPI and Reports no additional constitutional complaints Eyes: Eyes: Reports as per HPI and Reports no additional eye complaints ENT: Reports system reviewed and no additional complaints, except as documented and Reports as per HPI Cardiovascular: Cardiovascular: Reports as per HPI and Reports no additional cardiovascular complaints Respiratory: Respiratory: Reports as per HPI and Reports no additional respiratory complaints Gastrointestinal: Gastrointestinal: Reports as per HPI, Reports no additional gastrointestinal complaints and Reports excessive flatus Musculoskeletal: Musculoskeletal: Reports no additional musculoskeletal complaints and Reports as per HPI Neurologic: Reports system reviewed and no additional complaints, except as documented and Reports as per HPI Psychiatric: Psychiatric: Reports no additional psychiatric complaints and Reports as per HPI Endocrine: Endocrine: Reports no additional endocrine complaints and Reports as per HPI PMF Past Medical History Medical History AIDS Asthma Cocaine use disorder, severe, dependence Depression Hepatitis C HIV (human immunodeficiency virus infection) Opioid dependence Opioid use disorder, severe, in early remission, on maintenance therapy, dependence Schizoaffective disorder Tardive dyskinesia Social History Social History Household Members: Other Household Members Other:: rest home Housing: Other Housing Other:: [facility] Do you presently have visiting nurse or other home services: Yes (staff administers medications) Alcohol intake: current Alcohol intake frequency: a few times a month Alcohol type: beer and hard liquor Cigarette Packs Per Day: 0 Cigarettes Per Day: 6 Years Smoked: 50 Second Hand Smoke Exposure: Yes Substance Use Type: Crack/Cocaine and Heroin Advance Directives: Yes Advance Directives on File: Yes Advance Directives Date on File: 01/29/20 service: No Sexual orientation: N/A Physical Exam 2 Vital Signs: Vital Signs: Last Vital Signs Temp 98.2 F 09/17/20 18:20 Pulse 102 H 09/17/20 18:20 Resp 20 09/17/20 18:20 BP 117/67 09/17/20 18:20 Pulse Ox 95 09/17/20 18:20 Body Mass Index 24.6 Const: General: cooperative, healthy appearing, comfortable, no acute distress, well developed, alert, awake and Physically active Orientation/consciousness: patient oriented x3 HENMT: Head: Yes normal to inspection, Yes No palpable skull fracture present, Yes normocephalic and Yes atraumatic Eyes: General: appearance normal, both eyes and all related structures Neck: Neck: Yes normal visual inspection, Yes full ROM, Yes no lymphadenopathy, Yes no meningeal signs, Yes trachea midline, Yes supple and No tender Chest: Chest palpation & inspection: normal inspection of the chest and normal palpation of entire chest wall Resp: Effort & Inspection: normal respiratory effort and able to speak in complete sentences Cardio: Jugular venous distension: no JVD Heart sounds: S1 normal heart sound present and S2 normal heart sound present GI: Inspection: Yes normal to inspection and No abdominal wall ecchymosis Palpation (GI): Soft to palpation, not firm, nontender, no guarding and not rigid : General: No CVA tenderness and Yes no CVA tenderness Back/Spine/Pelvis: Back: no CVA tenderness, No CVA tenderness and No back tenderness Skin: General skin exam: no rashes or lesions noted and elasticity normal Neuro: General: patient oriented x3, gait normal, no meningeal signs and CN's II-XI intact bilaterally Cranial nerves: Yes CN's II-XII intact bilaterally Extrem: General: Yes normal to inspection and Yes full ROM Course Course Course Narrative: Patient will be discharged once more alert. Reevaluation(s) Reevaluation #1: Patient would stay for behavior health evaluation. Patient states suicidal. Time: 00:25 Discharge Plan Discharge Prescriptions: No Action trazodone 50 mg Tablet 50 mg PO BEDTIME PRN (Reason: Insomnia) Qty: 30 RF: 0 cyanocobalamin (vitamin B-12) 500 mcg Tablet 500 mcg PO DAILY Qty: 30 RF: 0 sertraline 25 mg Tablet 75 mg PO DAILY Qty: 30 RF: 0 quetiapine [Seroquel] 200 mg tablet 200 mg PO BEDTIME 30 Days Qty: 30 RF: 0 benztropine 1 mg Tablet 1 mg PO BEDTIME Qty: 30 RF: 0 mirtazapine 15 mg Tablet 15 mg PO BEDTIME 30 Days Qty: 30 RF: 0 Biktarvy 50-200-25 mg tablet 1 tab PO BEDTIME Qty: 30 RF: 0 Narcan 4 mg/actuation spray,non-aerosol 4 mg intranasal Q2M PRN (Reason: opioid overdose) Qty: 2 RF: 0
[2020-09-17] MEDS: diphenhydrAMINE HCL 25 MG TABLET 50 MG PO (19:26)
[2020-09-17] MEDS: LORazepam 1 MG TABLET 2 MG PO (19:26)
--- NOTE | 2020-09-17 19:29 | PC.NURSE ---
pt making noises vocally and then states im sorry, pt medicated as per emar. sitter remains with pt. will continue to monitor pt.
[2020-09-18] MEDS: HaloperidoL 5 MG TABLET PO (01:18)
--- NOTE | 2020-09-18 01:19 | PC.NURSE ---
pt starting to yell out. pt medicated as per emar. Referral sent to [facility].
--- NOTE | 2020-09-18 01:46 | PC.NURSE ---
UNABLE TO DO [facility] REC. PT DOES NOT KNOW WHERE HE GETS HIS MEDS AND WHAT MEDS HE TAKES AT HOME. MOST MEDS ARE FROM 2019.
--- NOTE | 2020-09-18 02:22 | PC.NURSE ---
PT AWAITING TO GO TO BEHAVIOR POD. SITTER REMAINS AT BEDSIDE WITH PT. PT IN NAD. WILL CONTINUE TO MONITOR PT.
--- NOTE | 2020-09-18 04:10 | PC.NURSE ---
PT SLEEPING, WAKES TO VOICE, PT IN NAD AND REMAINS CALM AND COOPERATIVE FOLLOWING COMMANDS. WILL CONTINUE TO MONITOR PT. PT AWAITING ROOM IN POD.
--- NOTE | 2020-09-18 05:39 | PC.NURSE ---
PT AWAITING TO GO TO BEHAVIOR POD. PT SLEEPING, WAKES TO VOICE, PT IN NAD. WILL CONTINUE TO MONITOR PT.
--- NOTE | 2020-09-18 06:13 | PC.NURSE ---
CURTIS CONFERMED RECEIPT OF REFERRAL SPOKE WITH CURTIS BAIRD.
--- NOTE | 2020-09-18 07:25 | PC.NURSE ---
report given to lesly salazar
--- NOTE | 2020-09-18 08:27 | ECG_ITS ---
Test Reason : CLEARANCE Blood Pressure : / mmHG Vent. Rate : 070 BPM Atrial Rate : 070 BPM P-R Int : 234 ms QRS Dur : 090 ms QT Int : 400 ms P-R-T Axes : 055 079 026 degrees QTc Int : 432 ms Sinus rhythm with 1st degree A-V block Otherwise normal ECG When compared with ECG of 24-AUG-2020 12:24, CA interval has increased Referred By: Anitha Pringle Electronically Signed By:Sudheer Lyon
[2020-09-18 09:00] VITALS: BP 112/69; PULSE 74; RESP 18; TEMP 36.5; O2SAT 96
[2020-09-18 09:15] LABS: MANUAL DIFF FLAG NO
--- NOTE | 2020-09-18 09:21 | PHA.MEDREC ---
Pharmacy Consult ? Medication Reconciliation Pharmacy has completed the medication reconciliation. Patient unwilling to talk. Was able to contact [facility] for an a recent filled history. All medication filled 09/12/2020 or 09/05/2020 Dot Booth, BessyD
[2020-09-18 09:24] LABS: Basophils Percent Auto 0.9 % (0-2); Eosinophils Absolute Auto 0.4 X10*3/uL (0.0-0.4); Eosinophils Percent Auto 8.6 % (0-4); Hemoglobin 12.2 g/dl (14.0-18.0); Imm Gran Abs Auto 0.01 X10*3/uL (0.00-0.03); Imm Gran Pct Auto 0.2 % (0.0-0.4); Lymphocytes Absolute Auto 1.2 X10*3/uL (1.2-4.9); Lymphocytes Percent Auto 26.2 % (20-40); Mean Corpuscular Hemoglobin 29.3 pg (27.0-33.0); Mean Corpuscular Volume 88.9 fL (80-98); Mean Platelet Volume 9.9 fL (9.4-12.4); Monocytes Absolute Auto 0.6 X10*3/uL (0.1-1.2); Monocytes Percent Auto 12.9 % (2-11); Neutrophils Absolute Auto 2.3 X10*3/uL (2.0-8.3); Neutrophils Percent Auto 51.2 % (45-73); Platelet Count 198 X10*3/uL (160-400); Red Blood Count 4.16 X10*6/uL (4.60-5.80); Red Cell Distribution Width 15.1 % (11.0-16.0); White Blood Count 4.4 X10*3/uL (4.8-10.8)
[2020-09-18 09:43] LABS: COVID-19 Test Negative (Negative); IDNOW Serial# 9DD0AD1C
[2020-09-18 09:54] LABS: Ethanol < 10 mg/dL
[2020-09-18 09:59] LABS: Alanine Aminotransferase 34 U/L (0-40); Alkaline Phosphatase 113 U/L (39-117); Anion Gap 10 (12-20); Aspartate Amino Transferase 57 U/L (5-37); Bilirubin Total 0.4 mg/dL (0.0-1.0); Blood Urea Nitrogen 13 mg/dL (9-16); Calcium 8.6 mg/dL (8.4-10.2); Carbon Dioxide 27 mmol/L (22-29); Chloride 103 mmol/L (96-108); Creatinine Clr Calc Pharmacy 87.6; Estimated Glomerular Filt Rate > 60; Glucose Random 97 mg/dL (60-115); Magnesium 1.9 mg/dL (1.6-2.6); Potassium 3.7 mmol/L (3.3-5.1); Sodium 136 mmol/L (135-145); Total Protein 6.3 g/dL (6.5-8.0)
[2020-09-18 13:23] LABS: Glucose Urine UA NEG (NEG); Leukocyte Esterase Urine NEG (NEG); Nitrite Urine NEG (NEG); Specific Gravity - Urine >= 1.030 (1.005-1.025); Urine Blood NEG (NEG); Urine Ketones NEG (NEG); Urine Protein NEG (NEG-TRACE)
[2020-09-18 13:24] LABS: Appearance Urine HAZY; Color Urine YELLOW
[2020-09-18 13:57] LABS: Amphetamine Screen Urine Not Detected (Not Detect); Barbiturates, Urine Not Detected (Not Detect); Cannabinoid Screen Urine Not Detected (Not Detect); Cocaine Screen Urine POSITIVE (Not Detect); Opiate Screen Urine POSITIVE (Not Detect); Phencyclidine Screen Urine Not Detected (Not Detect)
[2020-09-18 13:59] LABS: Benzodiazepines Screen Urine Not Detected (Not Detect)
--- NOTE | 2020-09-18 20:00 | PC.ADMIT ---
Nursing admission note: 60 year old male, male DX: Schizoaffective d/o depressed type. 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 Signed conditional voluntary. Engages for assessment, blunted affect, poor eye contact, dressed in hospital attire. Disoriented to place, time, and reason for admission. States he is unable to recall how he got here. Responds to questions, latency, mumbles, no spontaneous interactions, difficult to understand. Thoughts are disorganized. Insight, judgment, memory and concentration impaired, poor historian, incongruent reporting. Referred for admission by care team. Presented to ED via EMS for substance use. Stated he did not want substance abuse treatment, is currently on Suboxone. Reports use of cocaine and heroin. Tox screen positive for opiate. Reports last use of alcohol couple of weeks ago 1/2 can . Reports intermittent SI, plan to jump in front of a bus . Reports feeling safe on unit. Denies A/V hallucinations at this time. Endorses history of A/v hallucinations. Denies sleep or appetite disturbance at this time. Medical history includes Asthma, HIV/AIDS, Hepatitis C, Tardive Dyskinesia. NKDA. COVID negative. Extensive history of hospitalizations and recovery service. Reports he has pending court case, does not elaborate. Registered as sex offender. Oriented to unit, placed on 15 minute checks.See crisis evaluation, nursing assessment for complete details.
[2020-09-18 20:42] VITALS: BP 138/92; PULSE 77; RESP 16; TEMP 36.5; O2SAT 97
[2020-09-18] MEDS: Benztropine Mesylate 1 MG TABLET PO (21:26)
[2020-09-18] MEDS: QUEtiapine Fumarate 200 MG TABLET PO (21:26)
[2020-09-18] MEDS: Buprenorphine/Naloxone 8/2 mg FILM 1 FILM SUBLINGUAL (21:26)
[2020-09-18] MEDS: Mirtazapine 15 MG TABLET PO (21:26)
[2020-09-19] VITALS: RESP 14
[2020-09-19 08:00] VITALS: BP 119/78; PULSE 60; RESP 16; TEMP 37; O2SAT 97
[2020-09-19] MEDS: Buprenorphine/Naloxone 8/2 mg FILM 1 FILM SUBLINGUAL ×2 (08:49→20:20)
--- NOTE | 2020-09-19 09:52 | MHC.CLN ---
Addendum entered by Camryn Van RD 09/19/20 13:36: NUTRITION CONSULT DUE TO HIV, LOW WEIGHT. VISITED WITH PATIENT. CONFIRMED THAT WEIGHT HAD BEEN STABLE OVER THE PAST 6 MONTHS BUT REPORTS THAT USED TO WEIGHT 180#, CURRENT WEIGHT=67.1 KG (148#). LIKES STRAWBERRY ENSURE AND WOULD LIKE 3 X DAILY. EXPLAINED THAT SUPPLEMENT WOULD COME IN BETWEEN MEALS. EATING WELL AT TIME OF VISIT AND NO REPORTED CONCERNS WITH CURRENT APPETITE. ENCOURAGED PATIENT TO DRINK SUPPLEMENT. RD ADDED ENSURE 240 ML TID TO PROVIDE 1050 KCAL AND 60 G PROTEIN. Original Note: NUTRITION-WEIGHT REVIEW PRIOR WEIGHTS REVIEWED. 08/25/20=66 KG; 04/17/20=68 KG; =67.1 KG SHOWING NO SIGNIFICANT WEIGHT CHANGE X 6 MONTHS. HIGHEST WEIGHT=77.1 KG WHICH IS OUT OF RANGE FOR USUAL RECORDED WEIGHTS. USUAL WEIGHT RANGE IS 62 KG TO 73 KG.
[2020-09-19 12:00] VITALS: BP 98/61; PULSE 85; RESP 18; TEMP 35.9; O2SAT 98
--- NOTE | 2020-09-19 14:12 | PC.NURSE ---
Deitary consult,Diatician came to see patient. Supplements ordered.
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
[2020-09-19 15:36] VITALS: BP 104/63; PULSE 68; RESP 18; TEMP 36.6; O2SAT 97
--- NOTE | 2020-09-19 15:39 | PC.NURSE ---
Pt expressed to Production Broacher his thoughts to harm himself. Dr Chanel Notified,placed on 5 min safety checks.
[2020-09-19 16:00] VITALS: BP 108/64; PULSE 92; RESP 14; TEMP 36.5; O2SAT 99
[2020-09-19 18:43] VITALS: BP 102/66; PULSE 85; TEMP 36.4; O2SAT 100
[2020-09-19] MEDS: Benztropine Mesylate 1 MG TABLET PO (20:20)
[2020-09-19] MEDS: Mirtazapine 15 MG TABLET PO (20:20)
[2020-09-19] MEDS: QUEtiapine Fumarate 200 MG TABLET PO (20:20)
[2020-09-19] MEDS: hydrOXYzine HCL 25 MG TABLET PO (22:58)
[2020-09-19] MEDS: traZODone HCL 50 MG TABLET PO (22:58)
[2020-09-20 08:55] VITALS: BP 98/64; PULSE 88; RESP 18; TEMP 36.5; O2SAT 98
[2020-09-20 09:27] VITALS: BP 104/68; PULSE 68; RESP 18; TEMP 36.6; O2SAT 95
[2020-09-20] MEDS: Acetaminophen 325 MG TABLET 650 MG PO ×2 (09:29→20:47)
[2020-09-20] MEDS: Buprenorphine/Naloxone 8/2 mg FILM 1 FILM SUBLINGUAL ×2 (09:30→20:47)
[2020-09-20 12:00] VITALS: BP 94/64; PULSE 83; RESP 18; TEMP 36.2; O2SAT 98
--- NOTE | 2020-09-20 14:47 | P.PNPSI_ITS ---
Subjective Subjective Date of Service: 09/20/20 Reason For Visit: SI Interim History: found found resting in his bed. presentation similar to yesterday. reports he is not feeling very well, c/o opioid withdrawal. bones hurting. slept so-so, mood so-so. endorsing SI: sometimes i don't want to live anymore. per staff, isolative. slept well, no safety issues today. Mental Status Exam Mental Status Exam Narrative: thin, dressed in hospital scrubs. general PMR. cooperative. speech soft, mumbled/garbled, decr in amount, incr in latency. thoughts linear and logical. affect constricted. mood depressed. +SI, no HI/AVH reported. Diagnostics Vital Signs (24Hr): Vital Signs - 24 hr 09/19/20 15:36 09/19/20 16:00 09/19/20 18:43 Temperature 97.8 F 97.7 F 97.5 F Pulse Rate 68 92 85 Respiratory Rate 18 14 Blood Pressure 104/63 108/64 102/66 Pulse Oximetry 97 99 100 09/20/20 08:55 09/20/20 09:27 09/20/20 12:00 Temperature 97.7 F 97.8 F 97.2 F Pulse Rate 88 68 83 Respiratory Rate 18 18 18 Blood Pressure 98/64 104/68 94/64 Pulse Oximetry 98 95 98 Body Mass Index 24.6 Labs Results: 09/18/20 08:59 09/18/20 08:59 Medications Medications Current Medications Generic Name Dose Route Start Last Admin Trade Name Freq PRN Reason Stop Dose Admin Acetaminophen 650 mg 09/18/20 16:27 09/20/20 09:29 Acetaminophen 325 Mg Tablet PO 650 mg Q6H PRN Administration Headache/Pain Mild Scale (1-3) Al Hydroxide/Mg Hydroxide 30 ml 09/18/20 16:27 Magnesium Hydrox/Alum Hydrox 30 Ml Oral.Susp PO Q6H PRN Heartburn/Nausea Benztropine Mesylate 1 mg 09/18/20 21:00 09/19/20 20:20 Benztropine Mesylate 1 Mg Tablet PO 1 mg BEDTIME VICENTE Administration Bictegravir/Emtricitabine/Tenofovir 1 tab 09/18/20 21:00 09/19/20 20:20 Bictegrav/Emtricit/Tenofov Ala 1 Tab Tablet PO 1 tab BEDTIME VICENTE Administration Buprenorphine/Naloxone 1 film 09/18/20 21:00 09/20/20 09:30 Buprenorphine/Naloxone 8/2 Mg Film SUBLINGUAL 1 film BID VICENTE Administration Hydroxyzine HCl 25 mg 09/18/20 16:27 09/19/20 22:58 Hydroxyzine Hcl 25 Mg Tablet PO 25 mg BEDTIME PRN Administration Anxiety Magnesium Hydroxide 30 ml 09/18/20 16:27 Milk Of Magnesia 30 Ml Oral.Susp PO DAILY PRN Constipation Mirtazapine 15 mg 09/18/20 21:00 09/19/20 20:20 Mirtazapine 15 Mg Tablet PO 15 mg BEDTIME IVCENTE Administration Naloxone HCl 4 mg 09/18/20 16:27 Naloxone Hcl Nasal 4 Mg [place] NOSTRILALT Q2M PRN opioid overdose Nicotine Polacrilex 4 mg 09/18/20 16:27 Nicotine Polacrilex 2 Mg Gum BUCCAL Q2H PRN Nicotine Cravings Quetiapine Fumarate 200 mg 09/18/20 21:00 09/19/20 20:20 Quetiapine Fumarate 200 Mg Tablet PO 200 mg BEDTIME VICENTE Administration Trimethoprim/Sulfamethoxazole 1 tab 09/19/20 09:00 09/20/20 09:29 Sulfamethox/Trimeth 400/80 1 Tab Tablet PO 1 tab DAILY VICETNE Administration Allergies Allergies Allergy/AdvReac Type Severity Reaction Status Date / Time No Known Allergies Allergy Mild NO REACTION Verified 06/01/20 20:45 Assessment & Plan Assessment & Plan (1) Schizoaffective disorder: Status: Acute Code(s): F25.9 - Schizoaffective disorder, unspecified Assessment and Plan: continue home meds (2) Polysubstance (including opioids) dependence, daily use: Status: Acute Code(s): F11.20 - Opioid dependence, uncomplicated; F19.20 - Other psychoactive substance dependence, uncomplicated Assessment and Plan: utox cocaine and opioid POS. abstain. continue suboxone. (3) HIV (human immunodeficiency virus infection): Status: Acute Code(s): B20 - Human immunodeficiency virus [HIV] disease Assessment and Plan: continue home meds. dietary consult for supplements - ensure TID recommended. Greater than 50% of the session was spent on counseling and/or coordination of care Reason for contiued inpatient stay Substantial Risk for: harm to self
--- NOTE | 2020-09-20 14:49 | PC.NURSE ---
Pt contracted for safety. No self harming behavior. Dr Chanel ordered Q15 min safety checks.
[2020-09-20 16:39] VITALS: BP 110/69; PULSE 73; RESP 16; TEMP 36.4; O2SAT 99
[2020-09-20 20:33] VITALS: BP 127/76; PULSE 76; TEMP 36.5; O2SAT 99
[2020-09-20] MEDS: Benztropine Mesylate 1 MG TABLET PO (20:47)
[2020-09-20] MEDS: Mirtazapine 15 MG TABLET PO (20:47)
[2020-09-20] MEDS: QUEtiapine Fumarate 200 MG TABLET PO (20:47)
[2020-09-21 08:44] VITALS: BP 104/65; PULSE 80; TEMP 36; O2SAT 97
[2020-09-21] MEDS: Buprenorphine/Naloxone 8/2 mg FILM 1 FILM SUBLINGUAL ×2 (09:16→20:08)
[2020-09-21] MEDS: Acetaminophen 325 MG TABLET 650 MG PO (13:12)
--- NOTE | 2020-09-21 13:58 | P.PNPSI_ITS ---
Subjective Subjective Date of Service: 09/21/20 Reason For Visit: SI Interim History: pt found seated in common area watching TV and conversing with peer. states his mood is a little better and that he is physically feeling a lot better. able to engage in discussion around discharge back to his rest home, he is asking questions about how he would get back there. he reports chronic SI at baseline and states that that remains. per staff, anxious, visible in the milieu more. c/o very depressed today. Mental Status Exam Mental Status Exam Narrative: thin, dressed in hospital scrubs. general PMR. improved eye contact, more spontaneous movements. cooperative. speech soft, mumbl ed/garbled, decr in amount, incr in latency. thoughts linear and logical. affect constricted. mood depressed. +SI (chronic), no HI/AVH reported. Diagnostics Vital Signs (24Hr): Vital Signs - 24 hr 09/20/20 16:39 09/20/20 20:33 09/21/20 08:44 Temperature 97.5 F 97.7 F 96.8 F Pulse Rate 73 76 80 Respiratory Rate 16 Blood Pressure 110/69 127/76 104/65 Pulse Oximetry 99 99 97 Body Mass Index 24.6 Labs Results: 09/18/20 08:59 09/18/20 08:59 Medications Medications Current Medications Generic Name Dose Route Start Last Admin Trade Name Carline PRN Reason Stop Dose Admin Acetaminophen 650 mg 09/18/20 16:27 09/21/20 13:12 Acetaminophen 325 Mg Tablet PO 650 mg Q6H PRN Administration Headache/Pain Mild Scale (1-3) Al Hydroxide/Mg Hydroxide 30 ml 09/18/20 16:27 Magnesium Hydrox/Alum Hydrox 30 Ml Oral.Susp PO Q6H PRN Heartburn/Nausea Benztropine Mesylate 1 mg 09/18/20 21:00 09/20/20 20:47 Benztropine Mesylate 1 Mg Tablet PO 1 mg BEDTIME VICENTE Administration Bictegravir/Emtricitabine/Tenofovir 1 tab 09/18/20 21:00 09/20/20 20:47 Bictegrav/Emtricit/Tenofov Ala 1 Tab Tablet PO 1 tab BEDTIME VICENTE Administration Buprenorphine/Naloxone 1 film 09/18/20 21:00 09/21/20 09:16 Buprenorphine/Naloxone 8/2 Mg Film SUBLINGUAL 1 film BID VICENTE Administration Hydroxyzine HCl 25 mg 09/18/20 16:27 09/19/20 22:58 Hydroxyzine Hcl 25 Mg Tablet PO 25 mg BEDTIME PRN Administration Anxiety Magnesium Hydroxide 30 ml 09/18/20 16:27 Milk Of Magnesia 30 Ml Oral.Susp PO DAILY PRN Constipation Mirtazapine 15 mg 09/18/20 21:00 09/20/20 20:47 Mirtazapine 15 Mg Tablet PO 15 mg BEDTIME VICENTE Administration Naloxone HCl 4 mg 09/18/20 16:27 Naloxone Hcl Nasal 4 Mg [place] NOSTRILALT Q2M PRN opioid overdose Nicotine Polacrilex 4 mg 09/18/20 16:27 Nicotine Polacrilex 2 Mg Gum BUCCAL Q2H PRN Nicotine Cravings Quetiapine Fumarate 200 mg 09/18/20 21:00 09/20/20 20:47 Quetiapine Fumarate 200 Mg Tablet PO 200 mg BEDTIME VICENTE Administration Trimethoprim/Sulfamethoxazole 1 tab 09/19/20 09:00 09/21/20 08:49 Sulfamethox/Trimeth 400/80 1 Tab Tablet PO 1 tab DAILY VICENTE Administration Allergies Allergies Allergy/AdvReac Type Severity Reaction Status Date / Time No Known Allergies Allergy Mild NO REACTION Verified 06/01/20 20:45 Assessment & Plan Assessment & Plan (1) Schizoaffective disorder: Status: Acute Code(s): F25.9 - Schizoaffective disorder, unspecified Assessment and Plan: continue home meds (2) Polysubstance (including opioids) dependence, daily use: Status: Acute Code(s): F11.20 - Opioid dependence, uncomplicated; F19.20 - Other psychoactive substance dependence, uncomplicated Assessment and Plan: utox cocaine and opioid POS. abstain. continue suboxone. (3) HIV (human immunodeficiency virus infection): Status: Acute Code(s): B20 - Human immunodeficiency virus [HIV] disease Assessment and Plan: continue home meds. dietary consult for supplements - ensure TID recommended. Greater than 50% of the session was spent on counseling and/or coordination of care Reason for contiued inpatient stay Substantial Risk for: harm to self, inability to function and rapid decompensation
[2020-09-21 14:47] VITALS: BP 112/66; PULSE 83; RESP 16; TEMP 36.4; O2SAT 99
[2020-09-21 16:24] VITALS: BP 93/57; PULSE 85; RESP 16; TEMP 37.1; O2SAT 98
[2020-09-21] MEDS: QUEtiapine Fumarate 200 MG TABLET PO (20:08)
[2020-09-21] MEDS: Mirtazapine 15 MG TABLET PO (20:08)
[2020-09-21] MEDS: Benztropine Mesylate 1 MG TABLET PO (20:08)
[2020-09-21 20:23] VITALS: BP 111/70; PULSE 73; RESP 16; TEMP 36.3; O2SAT 90
[2020-09-22] MEDS: hydrOXYzine HCL 25 MG TABLET PO (04:02)
[2020-09-22 08:00] VITALS: BP 82/57; PULSE 81; RESP 18; TEMP 36.3; O2SAT 98
[2020-09-22] MEDS: Buprenorphine/Naloxone 8/2 mg FILM 1 FILM SUBLINGUAL ×2 (08:18→21:13)
--- NOTE | 2020-09-22 09:26 | P.PNPSI_ITS ---
Subjective Subjective Date of Service: 09/23/20 Reason For Visit: SI Interim History: Pt reports feeling less depressed. He reports improved sleep, appetite. He denies VH/AH. He minimizes his use of cocaine and heroin and its effects on his mood. He has been visible in unit, social with select peers. No behavioral concerns. Medication Compliance: Yes Side effects from medications: No Attending Groups: Yes Review of Systems Review of Systems Yes all other systems are reviewed and are negative Constitutional: Reports as per HPI and Reports no additional constitutional complaints Eyes: Reports as per HPI and Reports no additional eye complaints Reports system reviewed and no additional complaints, except as documented and Reports as per HPI Cardiovascular: Reports as per HPI and Reports no additional cardiovascular complaints Respiratory: Reports as per HPI and Reports no additional respiratory complaints Gastrointestinal: Reports as per HPI, Reports no additional gastrointestinal complaints and Reports excessive flatus Musculoskeletal: Reports no additional musculoskeletal complaints and Reports as per HPI Reports system reviewed and no additional complaints, except as documented and Reports as per HPI Psychiatric: Reports no additional psychiatric complaints and Reports as per HPI Endocrine: Reports no additional endocrine complaints and Reports as per HPI Mental Status Exam Mental Status Exam Narrative: thin, dressed in hospital scrubs. general PMR. improved eye contact, more spontaneous movements. cooperative. speech soft, mumbled/garbled, decr in amount, incr in latency. thoughts linear and logical. affect constricted. mood depressed. +SI (chronic), no HI/AVH reported. Diagnostics Vital Signs (24Hr): Vital Signs - 24 hr 09/22/20 20:00 09/23/20 07:53 Temperature 97.7 F 97.2 F Pulse Rate 86 77 Respiratory Rate 18 18 Blood Pressure 124/74 107/65 Pulse Oximetry 98 98 Body Mass Index 24.6 Labs Results: 09/18/20 08:59 09/18/20 08:59 Medications Medications Current Medications Generic Name Dose Route Start Last Admin Trade Name Freq PRN Reason Stop Dose Admin Acetaminophen 650 mg 09/18/20 16:27 09/21/20 13:12 Acetaminophen 325 Mg Tablet PO 650 mg Q6H PRN Administration Headache/Pain Mild Scale (1-3) Al Hydroxide/Mg Hydroxide 30 ml 09/18/20 16:27 Magnesium Hydrox/Alum Hydrox 30 Ml Oral.Susp PO Q6H PRN Heartburn/Nausea Benztropine Mesylate 1 mg 09/18/20 21:00 08/09/21 21:13 Benztropine Mesylate 1 Mg Tablet PO 1 mg BEDTIME VICENTE Administration Bictegravir/Emtricitabine/Tenofovir 1 tab 09/18/20 21:00 09/22/20 21:13 Bictegrav/Emtricit/Tenofov Ala 1 Tab Tablet PO 1 tab BEDTIME VICENTE Administration Buprenorphine/Naloxone 1 film 09/18/20 21:00 09/23/20 08:05 Buprenorphine/Naloxone 8/2 Mg Film SUBLINGUAL 1 film BID VICENTE Administration Hydroxyzine HCl 25 mg 09/18/20 16:27 09/22/20 04:02 Hydroxyzine Hcl 25 Mg Tablet PO 25 mg BEDTIME PRN Administration Anxiety Magnesium Hydroxide 30 ml 09/18/20 16:27 Milk Of Magnesia 30 Ml Oral.Susp PO DAILY PRN Constipation Mirtazapine 15 mg 09/18/20 21:00 09/22/20 21:13 Mirtazapine 15 Mg Tablet PO 15 mg BEDTIME VICENTE Administration Naloxone HCl 4 mg 09/18/20 16:27 Naloxone Hcl Nasal 4 Mg [place] NOSTRILALT Q2M PRN opioid overdose Nicotine Polacrilex 4 mg 09/18/20 16:27 Nicotine Polacrilex 2 Mg Gum BUCCAL Q2H PRN Nicotine Cravings Quetiapine Fumarate 200 mg 09/18/20 21:00 09/22/20 21:13 Quetiapine Fumarate 200 Mg Tablet PO 200 mg BEDTIME VICENTE Administration Trimethoprim/Sulfamethoxazole 1 tab 09/19/20 09:00 09/23/20 08:05 Sulfamethox/Trimeth 400/80 1 Tab Tablet PO 1 tab DAILY VICENTE Administration Allergies Allergies Allergy/AdvReac Type Severity Reaction Status Date / Time No Known Allergies Allergy Mild NO REACTION Verified 06/01/20 20:45 Assessment & Plan Assessment & Plan (1) Schizoaffective disorder: Status: Acute Code(s): F25.9 - Schizoaffective disorder, unspecified Assessment and Plan: continue home meds (2) Polysubstance (including opioids) dependence, daily use: Status: Acute Code(s): F11.20 - Opioid dependence, uncomplicated; F19.20 - Other psychoactive substance dependence, uncomplicated Assessment and Plan: utox cocaine and opioid POS. abstain. continue suboxone. (3) HIV (human immunodeficiency virus infection): Status: Acute Code(s): B20 - Human immunodeficiency virus [HIV] disease Assessment and Plan: continue home meds. dietary consult for supplements - ensure TID recommended. Greater than 50% of the session was spent on counseling and/or coordination of care Reason for contiued inpatient stay Substantial Risk for: stable for discharge
[2020-09-22 20:00] VITALS: BP 124/74; PULSE 86; RESP 18; TEMP 36.5; O2SAT 98
[2020-09-22] MEDS: Benztropine Mesylate 1 MG TABLET PO (21:13)
[2020-09-22] MEDS: Mirtazapine 15 MG TABLET PO (21:13)
[2020-09-22] MEDS: QUEtiapine Fumarate 200 MG TABLET PO (21:13)
[2020-09-23 07:53] VITALS: BP 107/65; PULSE 77; RESP 18; TEMP 36.2; O2SAT 98
[2020-09-23] MEDS: Buprenorphine/Naloxone 8/2 mg FILM 1 FILM SUBLINGUAL ×2 (08:05→20:03)
[2020-09-23 12:00] VITALS: BP 105/70; PULSE 84; RESP 16; TEMP 36.6; O2SAT 96
[2020-09-23 16:00] VITALS: BP 108/72; PULSE 80; RESP 18; TEMP 36.2; O2SAT 98
[2020-09-23 20:00] VITALS: BP 121/73; PULSE 85; TEMP 36.3; O2SAT 91
[2020-09-23] MEDS: Acetaminophen 325 MG TABLET 650 MG PO (20:01)
[2020-09-23] MEDS: Benztropine Mesylate 1 MG TABLET PO (20:03)
[2020-09-23] MEDS: Mirtazapine 15 MG TABLET PO (20:03)
[2020-09-23] MEDS: QUEtiapine Fumarate 200 MG TABLET PO (20:03)
[2020-09-24 08:00] VITALS: BP 105/71; PULSE 86; RESP 16; TEMP 35.9; O2SAT 97
[2020-09-24] MEDS: Buprenorphine/Naloxone 8/2 mg FILM 1 FILM SUBLINGUAL (08:06)
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
== END 2020-09-24 10:02 | disposition home or self-care (01) | DRG 750 ==
LOC: HO.ED 09-18 07:16 → HO.PADLT16 09-18 16:18
PROVIDERS: Physician Assistant Medical; Admitting Provider Psychiatry & Neurology Psychiatry; Emergency Provider Emergency Medicine; Visit Provider Psychiatry & Neurology Psychiatry
DX: F25.9 Schizoaffective disorder, unspecified (principal); R45.851 Suicidal ideations; F11.20 Opioid dependence, uncomplicated; F17.210 Nicotine dependence, cigarettes, uncomplicated; Z20.822 Contact with and (suspected) exposure to COVID-19; Z21 Asymptomatic human immunodeficiency virus [HIV] infection status; Z71.6 Tobacco abuse counseling; Z79.899 Other long term (current) drug therapy
CPT/HCPCS: 36415; 80053; 80307; 81003; 82077; 83735; 85025; 87635; 93005; 99284; 99285; Q0163

== ENCOUNTER 2020-10-21 01:31 | Inpatient (IN) | payer OTHER, SELFPAY ==
--- NOTE | 2020-10-21 | ECG_ITS ---
Test Reason : MEDCLEARANCE Blood Pressure : / mmHG Vent. Rate : 063 BPM Atrial Rate : 063 BPM P-R Int : 206 ms QRS Dur : 096 ms QT Int : 434 ms P-R-T Axes : 059 080 055 degrees QTc Int : 444 ms Normal sinus rhythm Normal ECG When compared with ECG of 18-SEP-2020 08:43, Nonspecific T wave abnormality no longer evident in Inferior leads Referred By: Maico Reis Electronically Signed By:SOFIA CANAS
[2020-10-21 01:40] VITALS: BP 125/84; PULSE 75; RESP 17; TEMP 37.2; O2SAT 95; BMI 25.8
[2020-10-21 01:57] VITALS: BP 125/84; PULSE 75; RESP 17; TEMP 37.2; O2SAT 95
[2020-10-21 02:30] LABS: Amphetamine Screen Urine Not Detected (Not Detect); Barbiturates, Urine Not Detected (Not Detect); Benzodiazepines Screen Urine Not Detected (Not Detect); Cannabinoid Screen Urine Not Detected (Not Detect); Cocaine Screen Urine POSITIVE (Not Detect); Fentanyl, urine POSITIVE (Not Detect); Opiate Screen Urine POSITIVE (Not Detect); Phencyclidine Screen Urine Not Detected (Not Detect)
[2020-10-21 02:31] LABS: COVID-19 Test Negative (Negative); IDNOW Serial# 9DD0AD1C
--- NOTE | 2020-10-21 06:16 | PC.NURSE ---
Patient slept only half hour since he arrived at 0145, no distress observed/reported, on second attempt of assessment patient reported self harm ideation, N referral completed via smart sheet, confirmed by Ashley pretty [facility] marketing services specialist, patient will be seen by N in the morning, no concerning behavior at this time, will continue to monitor.
--- NOTE | 2020-10-21 06:57 | PC.NURSE ---
patient remains asleep at present patients respirations are even and unlabored. patient appears in no distress.
--- NOTE | 2020-10-21 07:02 | ED.PSYCH ---
HPI - Psych General Chief Complaint: Psychiatric Symptoms Stated Complaint: crisis Time Seen by Provider: 10/21/20 07:02 Source: EMS Mode of arrival: EMS Limitations: no limitations History of Present Illness HPI Narrative: Patient comes to the emergency room complaining wanted to cut himself. Patient denies SI or HI. Patient states he is wants to cut his skin. Patient got picked up from the police station. Otherwise patient has no complaints. Patient is known to our hospital, patient has history of polysubstance and alcohol abuse. Related Data Home Medications Medication Instructions Recorded Confirmed buprenorphine 8 mg-naloxone 2 mg 1 strip SUBLINGUAL BID 10/21/20 10/21/20 sublingual film (Suboxone) Allergies Allergy/AdvReac Type Severity Reaction Status Date / Time No Known Allergies Allergy Mild NO REACTION Verified 06/01/20 20:45 Review of Systems Review of Systems: Constitutional : No Weight loss, No Fever, No Chills, No Night Sweats, No Fatigue, No Malaise ENT/Mouth : No Hearing loss, No Ear Pain, No Nasal Congestion, No Sinus Pain, No Hoarseness, No sore throat, No Rhinorrhea, No Swallowing Difficulty Eyes: No Eye Pain, No Swelling, No Redness, No Foreign Body, No Discharge, No Vision Changes Cardiovascular : No Chest Pain, No SOB, No Dyspnea on Exertion, No Orthopnea, No Edema, No Palpitations Respiratory : No Cough, No Sputum, No Wheezing, No Smoke Exposure, No Dyspnea Gastrointestinal : No Nausea, No Vomiting, No Diarrhea, No Constipation, No abdominal Pain, No Hematochezia, No Melena Genitourinary : no irregular bleeding, No Dysuria, No Urinary Frequency, No Hematuria, No Urinary Incontinence, No Urgency, No Flank Pain, No Urinary Flow Changes, No Hesitancy Musculoskeletal : No joint pain, No Myalgias, No Joint Swelling Skin : No Skin Lesions, No rash Neuro : No Weakness, No Numbness, No Paresthesias, No Loss of Consciousness, No Dizziness, No Headache Psych : Denies SI, no HI, wanting to cut himself without intention of killing himself Heme/Lymph: No Bruising, No Bleeding,No Lymphadenopathy Endocrine : No Polyuria, No Polydipsia, No Temperature Intolerance PMF Past Medical History Medical History AIDS Asthma Cocaine use disorder, severe, dependence Depression Hepatitis C HIV (human immunodeficiency virus infection) Opioid dependence Opioid use disorder, severe, in early remission, on maintenance therapy, dependence Schizoaffective disorder Tardive dyskinesia Social History Social History Household Members: Other Household Members Other:: 10 other people in the home Housing: [facility] Housing Other:: [facility] Do you presently have visiting nurse or other home services: No Alcohol intake: current Alcohol intake frequency: a few times a month Alcohol type: beer and hard liquor Patient Tobacco Use Status: Current someday Tobacco user Tobacco use type: Cigarette Cigarette Packs Per Day: 0 Cigarettes Per Day: 7 Years Smoked: 40 e-Cigarette/Vaping Use: Former Use Second Hand Smoke Exposure: No Substance Use Type: Crack/Cocaine, IV Drugs, Marijuana, Opiates, Painkillers and Prescription Drugs Advance Directives: Yes Advance Directives on File: Yes Advance Directives Date on File: 01/29/20 service: No Sexual orientation: Straight/Heterosexual Physical Exam Vital Signs: Vital Signs: Last Vital Signs Temp 98.9 F 10/21/20 01:57 Pulse 75 10/21/20 01:57 Resp 17 10/21/20 01:57 BP 125/84 10/21/20 01:57 Pulse Ox 95 10/21/20 01:57 Body Mass Index 25.8 Const: Other: Appearance: Alert. Somnolent, easily arousable,, cooperative No acute distress. Eyes: Pupils equal, round and reactive to light. ENT: Pharynx normal. Neck: Normal inspection. Neck supple. No lymph nodes noted. No crepitus CVS: Normal heart rate and rhythm. Pulses normal. Normal S1 and S2 Respiratory: No respiratory distress. Breath sounds normal. No Wheezing. No rales Abdomen: Soft and nontender. No rigidity. No distention. Skin: Skin warm and dry. Normal skin color. Normal skin turgor. Extremities: No lower extremity edema. No lower extremity edema. No Lacerations. No Rash Neuro: Oriented X 3. No motor deficit. No sensory deficit. Moving all extermities. No slurred speech. Cranial nerves 2-12 grossly intact Course Course Course Narrative: [facility] consult pending Sign-out given to Dr. Elmogy MDM - Psych Lab Data Labs: Lab Results 10/21/20 10/21/20 Range/Units 02:03 02:03 Urine Opiates Screen POSITIVE H (Not Detect) Urine Fentanyl Screen POSITIVE H (Not Detect) Ur Barbiturates Screen Not Detected (Not Detect) Ur Phencyclidine Scrn Not Detected (Not Detect) Ur Amphetamines Screen Not Detected (Not Detect) U Benzodiazepines Scrn Not Detected (Not Detect) Urine Cocaine Screen POSITIVE H (Not Detect) U Marijuana (THC) Screen Not Detected (Not Detect) COVID-19 (NEETU) Negative (Negative) COVID-19 Clin Com See Note Discharge Plan Discharge Clinical Impression: Polysubstance (including opioids) dependence, daily use Prescriptions: No Action buprenorphine-naloxone [Suboxone] 8-2 mg film 1 strip sublingual BID RF: 0
[2020-10-21] MEDS: HaloperidoL 5 MG TABLET PO (07:50)
[2020-10-21] MEDS: LORazepam 1 MG TABLET 2 MG PO (07:50)
--- NOTE | 2020-10-21 07:50 | PC.NURSE ---
patient observed as very restless in his room, and also stated to this telegraphic typewriter operator that there was a man in the corner o is room that was bothering him, please take him out periodically smacking self in head with palm, making soft grunting noises. requested kamille and lj of provider.
[2020-10-21] MEDS: Buprenorphine/Naloxone 8/2 mg FILM 1 FILM SUBLINGUAL ×2 (08:05→22:24)
[2020-10-21 11:50] LABS: MANUAL DIFF FLAG NO
[2020-10-21 11:52] LABS: Basophils Percent Auto 0.7 % (0-2); Eosinophils Absolute Auto 0.2 X10*3/uL (0.0-0.4); Eosinophils Percent Auto 3.2 % (0-4); Hematocrit 37.1 % (42-52); Hemoglobin 12.6 g/dl (14.0-18.0); Imm Gran Abs Auto 0.03 X10*3/uL (0.00-0.03); Imm Gran Pct Auto 0.5 % (0.0-0.4); Lymphocytes Absolute Auto 1.1 X10*3/uL (1.2-4.9); Lymphocytes Percent Auto 20.2 % (20-40); Mean Corpuscular Hemoglobin 29.9 pg (27.0-33.0); Mean Corpuscular Volume 87.9 fL (80-98); Mean Platelet Volume 10.3 fL (9.4-12.4); Monocytes Absolute Auto 0.9 X10*3/uL (0.1-1.2); Monocytes Percent Auto 15.3 % (2-11); Neutrophils Absolute Auto 3.3 X10*3/uL (2.0-8.3); Neutrophils Percent Auto 60.1 % (45-73); Platelet Count 191 X10*3/uL (160-400); Red Blood Count 4.22 X10*6/uL (4.60-5.80); Red Cell Distribution Width 14.5 % (11.0-16.0); White Blood Count 5.5 X10*3/uL (4.8-10.8)
[2020-10-21 20:15] VITALS: BP 119/76; PULSE 69; RESP 16; TEMP 36; O2SAT 97
--- NOTE | 2020-10-21 21:04 | PC.ADMIT ---
Patient arrived on unit via WC alert and awake. Oriented to person, place and time. Patient able to state where he was and why he was here stating to this cyber operator that I am here because I wanted to kill myself with a knife. Patient endorses auditory Hallucinations that are telling him to kill myself . Patient was oriented to unit, signed legal forms, settled in room and given dinner tray prior to admission assessment. Patient was unable to participate in all of the assessment. Patients insight, judgement, memory and concentration are impaired. Able to paricipate in linear conversation. Patient has difficulty making and maintaining eye contact. Patient is disorganized in thoughts. Patient speech is mumbled and difficult at times to understand.
[2020-10-22] MEDS: Buprenorphine/Naloxone 8/2 mg FILM 1 FILM SUBLINGUAL ×2 (08:08→20:28)
[2020-10-22 08:28] VITALS: BP 127/81; PULSE 91; RESP 16; TEMP 35.9; O2SAT 99
[2020-10-22 08:50] LABS: Estimated Average Glucose 108 mg/dL; Hemoglobin A1c % 5.4 %
[2020-10-22 08:57] LABS: Alanine Aminotransferase 22 U/L (0-40); Albumin Level 3.4 g/dL (3.5-5.0); Alkaline Phosphatase 116 U/L (39-117); Anion Gap 10 (12-20); Aspartate Amino Transferase 48 U/L (5-37); Bilirubin Total 0.5 mg/dL (0.0-1.0); Blood Urea Nitrogen 20 mg/dL (9-16); Calcium 9.2 mg/dL (8.4-10.2); Carbon Dioxide 25 mmol/L (22-29); Chloride 110 mmol/L (96-108); Cholesterol 186 mg/dL; Creatinine Clr Calc Pharmacy 90.9; Estimated Glomerular Filt Rate > 60; Glucose Fasting 93 mg/dL (60-99); HDL Cholesterol 22 mg/dL; LDL Cholesterol Calculated 118 mg/dl; Potassium 4.3 mmol/L (3.3-5.1); Sodium 141 mmol/L (135-145); Total Protein 7.1 g/dL (6.5-8.0); Triglycerides 231 mg/dL
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
[2020-10-22] MEDS: Nicotine 21 MG PATCH.TD24 TRANSDERMA (14:58)
[2020-10-22 15:25] LABS: Appearance Urine CLEAR; Color Urine YELLOW; Glucose Urine UA NEG (NEG); Leukocyte Esterase Urine 1+ (NEG); Nitrite Urine NEG (NEG); Specific Gravity - Urine >= 1.030 (1.005-1.025); UACC Culture Trigger YES; Urine Blood NEG (NEG); Urine Ketones 5 MG/DL (NEG); Urine Protein NEG (NEG-TRACE)
[2020-10-22 15:40] LABS: Calcium Oxalate Crystals Urine TRACE /LPF; Mucus Urine TRACE /LPF; RBC Urine 0 /HPF (0); Squamous Epithelial Cell Urine TRACE /LPF; UACC CULT YES
[2020-10-22 18:00] VITALS: BP 154/80; PULSE 62; RESP 18; TEMP 36.9; O2SAT 100
[2020-10-22] MEDS: QUEtiapine Fumarate 200 MG TABLET PO (20:28)
[2020-10-22] MEDS: Benztropine Mesylate 1 MG TABLET PO (20:28)
[2020-10-22] MEDS: traZODone HCL 50 MG TABLET PO (20:29)
[2020-10-22] MEDS: Acetaminophen 325 MG TABLET 650 MG PO (20:34)
[2020-10-23] MEDS: Ibuprofen 600 MG TABLET PO ×3 (01:01→23:57)
[2020-10-23 06:00] VITALS: BP 145/85; PULSE 53; RESP 16; TEMP 35.7; O2SAT 98
[2020-10-23 07:00] VITALS: BMI 21.3
[2020-10-23] MEDS: Buprenorphine/Naloxone 12/3 mg FILM 1 FILM SUBLINGUAL (09:01)
[2020-10-23] MEDS: Sertraline HCL 50 MG TABLET PO (09:01)
[2020-10-23] MEDS: Cyanocobalamin (Vitamin B-12) 500 MCG TABLET PO (09:01)
[2020-10-23] MEDS: Nicotine 21 MG PATCH.TD24 TRANSDERMA (09:01)
--- NOTE | 2020-10-23 17:10 | P.PNPSI_ITS ---
Subjective Subjective Date of Service: 10/23/20 Reason For Visit: SI Interim History: pt reports he's still feeling depressed with passive SI. He says he's been having on/off AVH of images sitting in corner saying you're no good...take your life... but he's mostly able to ignore it. He also reports trouble sleeping so check writer salesperson agrees to restart his Mirtazapine. Pt talked about half-way and says his vocational case manager says that they cannot kick him out; thus he plans to return. Pt has made innappropriate comments to female nursing staff talking about their looks Mental Status Exam Mental Status Exam Narrative: Pt is alert and oriented; behavior is cooperative and calm; patient is not in distress; dressed in casual cloths, well groomed and with adequate hygiene; mood is described as depressed and affect congruent; eye contact appropriate; Speech is still slowed and soft;? psychomotor retardation still present; thought process is goal oriented but concrete; Thought content is on ge tting tx; otherwise TC relevant to pertinent topics and without any delusional content, paranoid ideations or grandiosity; passive SI remains, without intent or plans; denies HI.? reports intermittent AH. ?Patients insight and judgment appear impaired but improving. Diagnostics Vital Signs (24Hr): Vital Signs - 24 hr 10/22/20 18:00 10/23/20 06:00 Temperature 98.4 F 96.2 F L Pulse Rate 62 53 Respiratory Rate 18 16 Blood Pressure 154/80 H 145/85 H Pulse Oximetry 100 98 Body Mass Index 21.3 Labs Results: 10/21/20 11:46 10/22/20 07:58 Labs: Laboratory Results - last 48 hr 10/22/20 10/22/20 10/22/20 07:58 07:59 15:15 Sodium 141 Potassium 4.3 Chloride 110 H Carbon Dioxide 25 Anion Gap 10 L BUN 20 H D Creatinine 0.77 Estim Creat Clear Calc 90.9 Estimated GFR > 60 Fasting Glucose 93 Estimat Average Glucose 108 Hemoglobin A1c % 5.4 Calcium 9.2 D Total Bilirubin 0.5 AST 48 H ALT 22 Alkaline Phosphatase 116 Total Protein 7.1 Albumin 3.4 L Triglycerides 231 Cholesterol 186 LDL Cholesterol, Calc 118 HDL Cholesterol 22 Urine Color YELLOW Urine Appearance CLEAR Urine pH 6.0 Ur Specific Banning >= 1.030 H Urine Protein NEG Urine Glucose (UA) NEG Urine Ketones 5 Urine Blood NEG Urine Nitrite NEG Ur Leukocyte Esterase 1+ H Urine RBC 0 Urine WBC 5-9 H Ur Squamous Epith Cells TRACE Calcium Oxalate Crystal TRACE Urine Bacteria NONE Urine Mucus TRACE Medications Medications Current Medications Generic Name Dose Route Start Last Admin Trade Name Freq PRN Reason Stop Dose Admin Acetaminophen 650 mg 10/21/20 18:04 10/22/20 20:34 Acetaminophen 325 Mg Tablet PO 650 mg Q6H PRN Administration Headache/Pain Mild Scale (1-3) Al Hydroxide/Mg Hydroxide 30 ml 10/21/20 18:04 Magnesium Hydrox/Alum Hydrox 30 Ml Oral.Susp PO Q6H PRN Heartburn/Nausea Albuterol Sulfate 2 puff 10/22/20 17:05 Albuterol Sulfate 90 Mcg 8 Gm Inhaler INHALE Q4H PRN Shortness of Breath Benztropine Mesylate 1 mg 10/22/20 21:00 10/22/20 20:28 Benztropine Mesylate 1 Mg Tablet PO 1 mg BEDTIME [facility] Administration Bictegravir/Emtricitabine/Tenofovir 1 tab 10/22/20 21:00 10/22/20 20:34 Bictegrav/Emtricit/Tenofov Ala 1 Tab Tablet PO 1 tab BEDTIME [facility] Administration Buprenorphine/Naloxone 1 film 10/23/20 09:00 10/23/20 09:01 Buprenorphine/Naloxone 12/3 Mg Film SUBLINGUAL 1 film DAILY [facility] Administration Buprenorphine/Naloxone 1 film 10/22/20 21:00 10/22/20 20:28 Buprenorphine/Naloxone 8/2 Mg Film SUBLINGUAL 1 film BEDTIME [facility] Administration Cyanocobalamin 500 mcg 10/23/20 09:00 10/23/20 09:01 Cyanocobalamin (Vitamin B-12) 500 Mcg Tablet PO 500 mcg DAILY [facility] Administration Hydroxyzine HCl 25 mg 10/21/20 18:04 Hydroxyzine Hcl 25 Mg Tablet PO Q6H PRN Anxiety Ibuprofen 600 mg 10/22/20 23:55 10/23/20 01:01 Ibuprofen 600 Mg Tablet PO 600 mg Q6H PRN Administration Pain, Moderate (Pain Scale 4-6 Magnesium Hydroxide 30 ml 10/21/20 18:04 Milk Of Magnesia 30 Ml Oral.Susp PO DAILY PRN Constipation Nicotine 21 mg 10/22/20 14:55 10/23/20 09:01 Nicotine 21 Mg Patch.Td24 TRANSDERMA 21 mg DAILY [facility] Administration Quetiapine Fumarate 200 mg 10/22/20 21:00 10/22/20 20:28 Quetiapine Fumarate 200 Mg Tablet PO 200 mg BEDTIME [facility] Administration Sertraline HCl 50 mg 10/23/20 09:00 10/23/20 09:01 Sertraline Hcl 50 Mg Tablet PO 50 mg DAILY [facility] Administration Trazodone HCl 50 mg 10/22/20 21:00 10/22/20 20:29 Trazodone Hcl 50 Mg Tablet PO 50 mg BEDTIME [facility] Administration Allergies Allergies Allergy/AdvReac Type Severity Reaction Status Date / Time No Known Allergies Allergy Mild NO REACTION Verified 06/01/20 20:45 Assessment & Plan Assessment & Plan (1) Depression: Status: Acute Code(s): F32.9 - Major depressive disorder, single episode, unspecified (2) HIV (human immunodeficiency virus infection): Status: Acute Code(s): B20 - Human immunodeficiency virus [HIV] disease (3) Cocaine use disorder, severe, dependence: Status: Acute Code(s): F14.20 - Cocaine dependence, uncomplicated (4) Opioid use disorder, severe, in early remission, on maintenance therapy, dependence: Status: Acute Code(s): F11.21 - Opioid dependence, in remission Assessment and Plan: Patient is a 60-year-old male with history of depression, cocaine and opioid abuse, HIV, (hep c?) and who also carries a diagnosis of schizoaffective disorder and has multiple inpt admissions, who presents for suicidal ideation having superficially cut his arm and neck the face of relapse. Patient reports auditory hallucinations only when he is upset; patient is somewhat limited historian and will need to collect collateral from sister. Patient reports that his suicidal ideation is passing and he thinks that after few days here he will be back to his normal self. He was to continue his home medications with the exception of mirtazapine. Hospital course pt remains depressed with passive SI and intermittent aVH will restart mirtazapine for insomnia; raise Zoloft back to prior home dose plan: Patient on CV Q 15 minutes checks Continue home medications Zoloft 50 mg daily will titrate Biktarvy Seroquel 200 mg at bedtime Trazodone 50 mg at bedtime Benztropine 1 mg daily for TD RESTART mirtazapine 7.5MG for insomnia and depression INCREASED Suboxone to 12/3 mg in the morning and 8/2 mg in the evening for help with sobriety Greater than 50% of the session was spent on counseling and/or coordination of care Reason for contiued inpatient stay Substantial Risk for: med/psych decompensation
[2020-10-23 17:32] VITALS: BP 138/83; PULSE 75; RESP 16
[2020-10-23] MEDS: QUEtiapine Fumarate 200 MG TABLET PO (20:13)
[2020-10-23] MEDS: Mirtazapine 7.5 MG TABLET PO (20:13)
[2020-10-23] MEDS: traZODone HCL 50 MG TABLET PO (20:13)
[2020-10-23] MEDS: Buprenorphine/Naloxone 8/2 mg FILM 1 FILM SUBLINGUAL (20:13)
[2020-10-23] MEDS: Benztropine Mesylate 1 MG TABLET PO (20:13)
[2020-10-24] MEDS: Buprenorphine/Naloxone 12/3 mg FILM 1 FILM SUBLINGUAL (08:05)
[2020-10-24] MEDS: Cyanocobalamin (Vitamin B-12) 500 MCG TABLET PO (08:05)
[2020-10-24] MEDS: Sertraline HCL 50 MG TABLET PO (08:05)
[2020-10-24] MEDS: Nicotine 21 MG PATCH.TD24 TRANSDERMA (08:06)
[2020-10-24 11:16] VITALS: BP 111/74; PULSE 74; RESP 16; TEMP 36.3; O2SAT 97
--- NOTE | 2020-10-24 11:41 | HO.PSYCHPN ---
Subjective Subjective Date of Service: 10/24/20 Reason For Visit: SI Interim History: pt seen on 10/24 (late entry note) Patient reports that his mood is still little up and down and that he still has intermittent AVH. He says his appetite improved and he is eating well. Sleeping a little better with mirtazapine. Patient says he also has intermittent SI but again reports that it is without any intention or plans, is fleeting and chronic. Given his mood, selling underwriter discusses and patient agrees with increasing Zoloft to 75 mg. Patient remains planning on discharging back to care home saying that his vocational case manager is working on this issue. Mental Status Exam Mental Status Exam Narrative: Pt is alert and oriented; behavior is cooperative and calm; patient is not in distress; dressed in casual cloths, well groomed and with adequate hygiene; mood is described as up and down; affect brighter; eye contact appropriate; Speech is still soft, but regular rate; no psychomotor retardation; thought process is goal oriented but concrete; Thought content is on getting tx and on discharge; otherwise TC relevant to pertinent topics and without any delusional content, paranoid ideations or grandiosity; passive SI remains, without intent or plans; denies HI.? reports intermittent AH. ?Patients insight and judgment appear improving. Diagnostics Vital Signs (24Hr): Vital Signs - 24 hr 10/26/20 17:39 10/27/20 06:00 Temperature 97.0 F 97.1 F Pulse Rate 77 85 Respiratory Rate 16 18 Blood Pressure 105/67 119/62 Pulse Oximetry 98 96 Body Mass Index 21.3 Labs Results: 10/21/20 11:46 10/22/20 07:58 Medications Medications Current Medications Generic Name Dose Route Start Last Admin Trade Name Freq PRN Reason Stop Dose Admin Acetaminophen 650 mg 10/21/20 18:04 10/22/20 20:34 Acetaminophen 325 Mg Tablet PO 650 mg Q6H PRN Administration Headache/Pain Mild Scale (1-3) Al Hydroxide/Mg Hydroxide 30 ml 10/21/20 18:04 10/26/20 21:07 Magnesium Hydrox/Alum Hydrox 30 Ml Oral.Susp PO 30 ml Q6H PRN Administration Heartburn/Nausea Albuterol Sulfate 2 puff 10/22/20 17:05 Albuterol Sulfate 90 Mcg 8 Gm Inhaler INHALE Q4H PRN Shortness of Breath Benztropine Mesylate 1 mg 10/22/20 21:00 10/26/20 20:34 Benztropine Mesylate 1 Mg Tablet PO 1 mg BEDTIME VICENTE Administration Bictegravir/Emtricitabine/Tenofovir 1 tab 10/22/20 21:00 10/26/20 20:33 Bictegrav/Emtricit/Tenofov Ala 1 Tab Tablet PO 1 tab BEDTIME VICENTE Administration Buprenorphine/Naloxone 1 film 10/23/20 09:00 10/27/20 09:15 Buprenorphine/Naloxone 12/3 Mg Film SUBLINGUAL 1 film DAILY VICENTE Administration Buprenorphine/Naloxone 1 film 10/22/20 21:00 10/26/20 20:34 Buprenorphine/Naloxone 8/2 Mg Film SUBLINGUAL 1 film BEDTIME VICENTE Administration Cyanocobalamin 500 mcg 10/23/20 09:00 10/27/20 09:15 Cyanocobalamin (Vitamin B-12) 500 Mcg Tablet PO 500 mcg DAILY VICENTE Administration Hydroxyzine HCl 25 mg 10/21/20 18:04 Hydroxyzine Hcl 25 Mg Tablet PO Q6H PRN Anxiety Ibuprofen 600 mg 10/22/20 23:55 10/26/20 08:58 Ibuprofen 600 Mg Tablet PO 600 mg Q6H PRN Administration Pain, Moderate (Pain Scale 4-6 Magnesium Hydroxide 30 ml 10/21/20 18:04 Milk Of Magnesia 30 Ml Oral.Susp PO DAILY PRN Constipation Mirtazapine 7.5 mg 10/23/20 21:00 10/26/20 20:33 Mirtazapine 7.5 Mg Tablet PO 7.5 mg BEDTIME VICENTE Administration Nicotine 21 mg 10/22/20 14:55 10/27/20 09:15 Nicotine 21 Mg Patch.Td24 TRANSDERMA 21 mg DAILY VICENTE Administration Quetiapine Fumarate 200 mg 10/22/20 21:00 10/26/20 20:33 Quetiapine Fumarate 200 Mg Tablet PO 200 mg BEDTIME VICENTE Administration Sertraline HCl 75 mg 10/25/20 09:00 10/27/20 09:14 Sertraline Hcl 25 Mg Tablet PO 75 mg DAILY VICENTE Administration Allergies Allergies Allergy/AdvReac Type Severity Reaction Status Date / Time No Known Allergies Allergy Mild NO REACTION Verified 06/01/20 20:45 Assessment & Plan Assessment & Plan (1) Depression: Status: Acute Code(s): F32.9 - Major depressive disorder, single episode, unspecified (2) HIV (human immunodeficiency virus infection): Status: Acute Code(s): B20 - Human immunodeficiency virus [HIV] disease (3) Cocaine use disorder, severe, dependence: Status: Acute Code(s): F14.20 - Cocaine dependence, uncomplicated (4) Opioid use disorder, severe, in early remission, on maintenance therapy, dependence: Status: Acute Code(s): F11.21 - Opioid dependence, in remission Assessment and Plan: Patient is a 60-year-old male with history of depression, cocaine and opioid abuse, HIV, (hep c?) and who also carries a diagnosis of schizoaffective disorder and has multiple inpt admissions, who presents for suicidal ideation having superficially cut his arm and neck the face of relapse.? Patient reports auditory hallucinations only when he is upset; patient is somewhat limited historian and will need to collect collateral from sister.? Patient reports that his suicidal ideation is passing and he thinks that after few days here he will be back to his normal self.? He was to continue his home medications with the exception of mirtazapine. Hospital course pt remains depressed with passive SI and intermittent aVH but SI is passive, without intent or plans and chronic, able to be ignored restarted mirtazapine for insomnia; Inreased Zoloft to 75mg (back to prior home dose) plan: Patient on CV Q 15 minutes checks Continue home medications Increased to Zoloft 75 mg Continue Mirtazapine 7.5 mg Biktarvy Seroquel 200 mg at bedtime Trazodone 50 mg at bedtime Benztropine 1 mg daily for TD (Had INCREASED) Suboxone to 12/3 mg in the morning and 8/2 mg in the evening for help with sobriety Greater than 50% of the session was spent on counseling and/or coordination of care Reason for contiued inpatient stay Substantial Risk for: med/psych decompensation
[2020-10-24 16:08] VITALS: BP 118/75; PULSE 91; TEMP 36.4
[2020-10-24] MEDS: traZODone HCL 50 MG TABLET PO (19:47)
[2020-10-24] MEDS: Mirtazapine 7.5 MG TABLET PO (19:47)
[2020-10-24] MEDS: QUEtiapine Fumarate 200 MG TABLET PO (19:47)
[2020-10-24] MEDS: Benztropine Mesylate 1 MG TABLET PO (19:48)
[2020-10-24] MEDS: Buprenorphine/Naloxone 8/2 mg FILM 1 FILM SUBLINGUAL (19:48)
[2020-10-25 06:00] VITALS: BP 127/84; PULSE 66; RESP 18; TEMP 36.1; O2SAT 95
[2020-10-25] MEDS: Nicotine 21 MG PATCH.TD24 TRANSDERMA (08:24)
[2020-10-25] MEDS: Sertraline HCL 25 MG TABLET 75 MG PO (08:24)
[2020-10-25] MEDS: Buprenorphine/Naloxone 12/3 mg FILM 1 FILM SUBLINGUAL (08:24)
[2020-10-25] MEDS: Cyanocobalamin (Vitamin B-12) 500 MCG TABLET PO (08:24)
[2020-10-25] MEDS: Ibuprofen 600 MG TABLET PO (10:03)
[2020-10-25 18:00] VITALS: BP 130/72; PULSE 77; RESP 16; TEMP 36.2
[2020-10-25] MEDS: QUEtiapine Fumarate 200 MG TABLET PO (21:04)
[2020-10-25] MEDS: Benztropine Mesylate 1 MG TABLET PO (21:04)
[2020-10-25] MEDS: Buprenorphine/Naloxone 8/2 mg FILM 1 FILM SUBLINGUAL (21:05)
[2020-10-25] MEDS: Mirtazapine 7.5 MG TABLET PO (21:05)
--- NOTE | 2020-10-26 00:22 | P.PNPSI_ITS ---
Subjective Subjective Date of Service: 10/25/20 Reason For Visit: SI Subjective Notes: Luis Warning and Conditional Voluntary Healthcare Proxy: No Guardianship: No Medical Problems Affecting Mental Status: No Interim History: Patient seen and discussed with team. Per operations staff specialist security, he has been sedated in the day, nodding out but attended group. Sleep is good on overnight. C/o headache. Patient evaluated this morning and upon interview he reports he is not too good because his bones are hurting me, all my bones. Says he has arthritis, tylenol doesnt work, likes motrin. Has suboxone. Says he is coping well on the unit, I take it day by day. Discussed his hypersomnolence, says I sleep like a rock. He is falling asleep during the interview, states I close my eyes to release the pain. He is amendable to discontinuing trazodone due to oversedation, already on remeron. In the milieu, patient is safe and appropriate in behavior. Denies SI/SIB/HI upon inquiry. Denies irritability or assaultive ideation. Says he feels safe. Medication Compliance: Yes Side effects from medications: No Attending Groups: Yes Review of Systems Medical Review of Systems: unchanged Mental Status Exam Mental Status Exam Narrative: ?Pt is alert and oriented; behavior is cooperative and calm; patient is not in distress; dressed in casual cloths, well groomed and with adequate hygiene; mood is described as not too good and affect is euthymic; eye contact appropriate; Speech is still slowed and soft;? psychomotor retardation still present; thought process is goal oriented but concrete; Thought content is on getting tx; otherwise TC relevant to pertinent topics and without any delusional content, paranoid ideations or grandiosity; passive SI remains, without intent or plans; denies HI.? reports intermittent AH. ?Patients insight and judgment appear impaired but improving. Diagnostics Vital Signs (24Hr): Vital Signs - 24 hr 10/25/20 06:00 10/25/20 18:00 Temperature 97.0 F 97.1 F Pulse Rate 66 77 Respiratory Rate 18 16 Blood Pressure 127/84 130/72 Pulse Oximetry 95 Body Mass Index 21.3 Labs Results: 10/21/20 11:46 10/22/20 07:58 Medications Medications Current Medications Generic Name Dose Route Start Last Admin Trade Name Freq PRN Reason Stop Dose Admin Acetaminophen 650 mg 10/21/20 18:04 10/22/20 20:34 Acetaminophen 325 Mg Tablet PO 650 mg Q6H PRN Administration Headache/Pain Mild Scale (1-3) Al Hydroxide/Mg Hydroxide 30 ml 10/21/20 18:04 Magnesium Hydrox/Alum Hydrox 30 Ml Oral.Susp PO Q6H PRN Heartburn/Nausea Albuterol Sulfate 2 puff 10/22/20 17:05 Albuterol Sulfate 90 Mcg 8 Gm Inhaler INHALE Q4H PRN Shortness of Breath Benztropine Mesylate 1 mg 10/22/20 21:00 10/25/20 21:04 Benztropine Mesylate 1 Mg Tablet PO 1 mg BEDTIME VICENTE Administration Bictegravir/Emtricitabine/Tenofovir 1 tab 10/22/20 21:00 10/25/20 21:04 Bictegrav/Emtricit/Tenofov Ala 1 Tab Tablet PO 1 tab BEDTIME VICENTE Administration Buprenorphine/Naloxone 1 film 10/23/20 09:00 10/25/20 08:24 Buprenorphine/Naloxone 12/3 Mg Film SUBLINGUAL 1 film DAILY VICENTE Administration Buprenorphine/Naloxone 1 film 10/22/20 21:00 10/25/20 21:05 Buprenorphine/Naloxone 8/2 Mg Film SUBLINGUAL 1 film BEDTIME VICENTE Administration Cyanocobalamin 500 mcg 10/23/20 09:00 10/25/20 08:24 Cyanocobalamin (Vitamin B-12) 500 Mcg Tablet PO 500 mcg DAILY VICENTE Administration Hydroxyzine HCl 25 mg 10/21/20 18:04 Hydroxyzine Hcl 25 Mg Tablet PO Q6H PRN Anxiety Ibuprofen 600 mg 10/22/20 23:55 10/25/20 10:03 Ibuprofen 600 Mg Tablet PO 600 mg Q6H PRN Administration Pain, Moderate (Pain Scale 4-6 Magnesium Hydroxide 30 ml 10/21/20 18:04 Milk Of Magnesia 30 Ml Oral.Susp PO DAILY PRN Constipation Mirtazapine 7.5 mg 10/23/20 21:00 10/25/20 21:05 Mirtazapine 7.5 Mg Tablet PO 7.5 mg BEDTIME VICENTE Administration Nicotine 21 mg 10/22/20 14:55 10/25/20 08:24 Nicotine 21 Mg Patch.Td24 TRANSDERMA 21 mg DAILY VICENTE Administration Quetiapine Fumarate 200 mg 10/22/20 21:00 10/25/20 21:04 Quetiapine Fumarate 200 Mg Tablet PO 200 mg BEDTIME VICENTE Administration Sertraline HCl 75 mg 10/25/20 09:00 10/25/20 08:24 Sertraline Hcl 25 Mg Tablet PO 75 mg DAILY VICENTE Administration Allergies Allergies Allergy/AdvReac Type Severity Reaction Status Date / Time No Known Allergies Allergy Mild NO REACTION Verified 06/01/20 20:45 Assessment & Plan Assessment & Plan (1) Depression: Status: Acute Code(s): F32.9 - Major depressive disorder, single episode, unspecified (2) HIV (human immunodeficiency virus infection): Status: Acute Code(s): B20 - Human immunodeficiency virus [HIV] disease (3) Cocaine use disorder, severe, dependence: Status: Acute Code(s): F14.20 - Cocaine dependence, uncomplicated (4) Opioid use disorder, severe, in early remission, on maintenance therapy, dependence: Status: Acute Code(s): F11.21 - Opioid dependence, in remission Assessment and Plan: Patient is a 60-year-old male with history of depression, cocaine and opioid abuse, HIV, (hep c?) and who also carries a diagnosis of schizoaffective disorder and has multiple inpt admissions, who presents for suicidal ideation having superficially cut his arm and neck the face of relapse. Patient reports auditory hallucinations only when he is upset; patient is somewhat limited historian and will need to collect collateral from sister. Patient reports that his suicidal ideation is passing and he thinks that after few days here he will be back to his normal self. He was to continue his home medications with the exception of mirtazapine. Hospital course pt remains depressed with passive SI and intermittent aVH will restart mirtazapine for insomnia; raise Zoloft back to prior home dose plan: Patient on CV Q 15 minutes checks Continue home medications Zoloft 50 mg daily will titrate Biktarvy Seroquel 200 mg at bedtime D/C Trazodone 50 mg at bedtime Benztropine 1 mg daily for TD Continue mirtazapine 7.5MG for insomnia and depression Continue his INCREASED Suboxone 12/3 mg in the morning and 8/2 mg in the evening for help with sobriety Greater than 50% of the session was spent on counseling and/or coordination of care Reason for contiued inpatient stay Substantial Risk for: rapid decompensation and med/psych decompensation
[2020-10-26 06:00] VITALS: BP 115/71; PULSE 81; TEMP 36.7; O2SAT 95
[2020-10-26] MEDS: Cyanocobalamin (Vitamin B-12) 500 MCG TABLET PO (08:05)
[2020-10-26] MEDS: Sertraline HCL 25 MG TABLET 75 MG PO (08:05)
[2020-10-26] MEDS: Buprenorphine/Naloxone 12/3 mg FILM 1 FILM SUBLINGUAL (08:05)
[2020-10-26] MEDS: Nicotine 21 MG PATCH.TD24 TRANSDERMA (08:05)
[2020-10-26] MEDS: Ibuprofen 600 MG TABLET PO (08:58)
--- NOTE | 2020-10-26 15:01 | P.PNPSI_ITS ---
Subjective Subjective Date of Service: 10/26/20 Reason For Visit: SI Subjective Notes: Luis Warning and Conditional Voluntary Healthcare Proxy: No Guardianship: No Medical Problems Affecting Mental Status: No Interim History: Patient seen and discussed with team. Per hotel staff member, he is still sedated in the morning, but more visible today. Patient evaluated this morning and upon interview he reports I need help, they took my apartment, kicked me out of there. Has had issues with his [place] [employer] and accessing his SSDI, DTA. Says my medication is alright, does not want changes. Reports I feel good, thinks he has better energy off trazodone. In the milieu, patient is safe and appropriate in behavior. Denies SI/SIB/HI upon inquiry. Denies irritability or assaultive ideation. Says he feels safe. Medication Compliance: Yes Side effects from medications: No Attending Groups: Yes Mental Status Exam Mental Status Exam Narrative: Pt is alert and oriented; behavior is cooperative and calm; patient is not in distress; dressed in casual cloths, well groomed and with adequate hygiene; mood is described as good and affect is euthymic; eye contact appropriate; Speech is still slowed and soft;? psychomotor retardation still present; thought process is goal oriented but concrete; Thought content is on getting tx; otherwise TC relevant to pertinent topics and without any delusional content, paranoid ideations or grandiosity; passive SI remains, without intent or plans; denies HI.? reports intermittent AH. ?Patients insight and judgment appear impaired but improving. Diagnostics Vital Signs (24Hr): Vital Signs - 24 hr 10/25/20 18:00 10/26/20 06:00 Temperature 97.1 F 98.1 F Pulse Rate 77 81 Respiratory Rate 16 Blood Pressure 130/72 115/71 Pulse Oximetry 95 Body Mass Index 21.3 Labs Results: 10/21/20 11:46 10/22/20 07:58 Medications Medications Current Medications Generic Name Dose Route Start Last Admin Trade Name Freq PRN Reason Stop Dose Admin Acetaminophen 650 mg 10/21/20 18:04 10/22/20 20:34 Acetaminophen 325 Mg Tablet PO 650 mg Q6H PRN Administration Headache/Pain Mild Scale (1-3) Al Hydroxide/Mg Hydroxide 30 ml 10/21/20 18:04 Magnesium Hydrox/Alum Hydrox 30 Ml Oral.Susp PO Q6H PRN Heartburn/Nausea Albuterol Sulfate 2 puff 10/22/20 17:05 Albuterol Sulfate 90 Mcg 8 Gm Inhaler INHALE Q4H PRN Shortness of Breath Benztropine Mesylate 1 mg 10/22/20 21:00 10/25/20 21:04 Benztropine Mesylate 1 Mg Tablet PO 1 mg BEDTIME VICENTE Administration Bictegravir/Emtricitabine/Tenofovir 1 tab 10/22/20 21:00 10/25/20 21:04 Bictegrav/Emtricit/Tenofov Ala 1 Tab Tablet PO 1 tab BEDTIME VICENTE Administration Buprenorphine/Naloxone 1 film 10/23/20 09:00 10/26/20 08:05 Buprenorphine/Naloxone 12/3 Mg Film SUBLINGUAL 1 film DAILY VICENTE Administration Buprenorphine/Naloxone 1 film 10/22/20 21:00 10/25/20 21:05 Buprenorphine/Naloxone 8/2 Mg Film SUBLINGUAL 1 film BEDTIME VICENTE Administration Cyanocobalamin 500 mcg 10/23/20 09:00 10/26/20 08:05 Cyanocobalamin (Vitamin B-12) 500 Mcg Tablet PO 500 mcg DAILY VICENTE Administration Hydroxyzine HCl 25 mg 10/21/20 18:04 Hydroxyzine Hcl 25 Mg Tablet PO Q6H PRN Anxiety Ibuprofen 600 mg 10/22/20 23:55 10/26/20 08:58 Ibuprofen 600 Mg Tablet PO 600 mg Q6H PRN Administration Pain, Moderate (Pain Scale 4-6 Magnesium Hydroxide 30 ml 10/21/20 18:04 Milk Of Magnesia 30 Ml Oral.Susp PO DAILY PRN Constipation Mirtazapine 7.5 mg 10/23/20 21:00 10/25/20 21:05 Mirtazapine 7.5 Mg Tablet PO 7.5 mg BEDTIME VICENTE Administration Nicotine 21 mg 10/22/20 14:55 10/26/20 08:05 Nicotine 21 Mg Patch.Td24 TRANSDERMA 21 mg DAILY VICENTE Administration Quetiapine Fumarate 200 mg 10/22/20 21:00 10/25/20 21:04 Quetiapine Fumarate 200 Mg Tablet PO 200 mg BEDTIME VICENTE Administration Sertraline HCl 75 mg 10/25/20 09:00 10/26/20 08:05 Sertraline Hcl 25 Mg Tablet PO 75 mg DAILY VICENTE Administration Allergies Allergies Allergy/AdvReac Type Severity Reaction Status Date / Time No Known Allergies Allergy Mild NO REACTION Verified 06/01/20 20:45 Assessment & Plan Assessment & Plan (1) Depression: Status: Acute Code(s): F32.9 - Major depressive disorder, single episode, unspecified (2) HIV (human immunodeficiency virus infection): Status: Acute Code(s): B20 - Human immunodeficiency virus [HIV] disease (3) Cocaine use disorder, severe, dependence: Status: Acute Code(s): F14.20 - Cocaine dependence, uncomplicated (4) Opioid use disorder, severe, in early remission, on maintenance therapy, dependence: Status: Acute Code(s): F11.21 - Opioid dependence, in remission Assessment and Plan: Patient is a 60-year-old male with history of depression, cocaine and opioid abuse, HIV, (hep c?) and who also carries a diagnosis of schizoaffective disorder and has multiple inpt admissions, who presents for suicidal ideation having superficially cut his arm and neck the face of relapse. Patient reports auditory hallucinations only when he is upset; patient is somewhat limited historian and will need to collect collateral from sister. Patient reports that his suicidal ideation is passing and he thinks that after few days here he will be back to his normal self. He was to continue his home medications with the exception of mirtazapine. Hospital course pt remains depressed with passive SI and intermittent aVH will restart mirtazapine for insomnia; raise Zoloft back to prior home dose 09/12: No changes to med regimen, reports positive benefit on medications plan: Patient on CV Q 15 minutes checks Continue home medications Zoloft 50 mg daily will titrate Biktarvy Seroquel 200 mg at bedtime Benztropine 1 mg daily for TD RESTART mirtazapine 7.5MG for insomnia and depression INCREASED Suboxone to 12/3 mg in the morning and 8/2 mg in the evening for help with sobriety Greater than 50% of the session was spent on counseling and/or coordination of care Reason for contiued inpatient stay Substantial Risk for: rapid decompensation and med/psych decompensation
[2020-10-26 17:39] VITALS: BP 105/67; PULSE 77; RESP 16; TEMP 36.1; O2SAT 98
[2020-10-26] MEDS: QUEtiapine Fumarate 200 MG TABLET PO (20:33)
[2020-10-26] MEDS: Mirtazapine 7.5 MG TABLET PO (20:33)
[2020-10-26] MEDS: Buprenorphine/Naloxone 8/2 mg FILM 1 FILM SUBLINGUAL (20:34)
[2020-10-26] MEDS: Benztropine Mesylate 1 MG TABLET PO (20:34)
[2020-10-26] MEDS: Magnesium Hydrox/Alum Hydrox 30 ML ORAL.SUSP PO (21:07)
[2020-10-27 06:00] VITALS: BP 119/62; PULSE 85; RESP 18; TEMP 36.2; O2SAT 96
[2020-10-27] MEDS: Sertraline HCL 25 MG TABLET 75 MG PO (09:14)
[2020-10-27] MEDS: Buprenorphine/Naloxone 12/3 mg FILM 1 FILM SUBLINGUAL (09:15)
[2020-10-27] MEDS: Nicotine 21 MG PATCH.TD24 TRANSDERMA (09:15)
[2020-10-27] MEDS: Cyanocobalamin (Vitamin B-12) 500 MCG TABLET PO (09:15)
--- NOTE | 2020-10-27 11:48 | HO.PSYCHPN ---
Subjective Subjective Date of Service: 10/27/20 Reason For Visit: SI Interim History: Patient says he is feeling better. He says his mood is better and denies any SI at all. He also denies auditory hallucinations and says that he sleeping well. Denies any medication side effects. Patient says he feels ready for discharge tomorrow and has no other complaints or requests. Patient spoke well of Brittani his pillowcase cutter whom he has known for quite a long time. He says she has always been extremely helpful and is grateful for her. Mental Status Exam Mental Status Exam Narrative: Pt is alert and oriented; behavior is cooperative and calm; patient is not in distress; dressed in casual cloths, well groomed and with adequate hygiene; mood is described as better and affect brighter; eye contact appropriate; Speech regular rate, volume, prosody; no psychomotor retardation; thought process is goal oriented but concrete; Thought content is on getting tx and on discharge; otherwise TC relevant to pertinent topics and without any delusional content, paranoid ideations or grandiosity; denies any SI/HI; denies AH; Patients insight and judgment appear intact. Diagnostics Vital Signs (24Hr): Vital Signs - 24 hr 10/26/20 17:39 10/27/20 06:00 Temperature 97.0 F 97.1 F Pulse Rate 77 85 Respiratory Rate 16 18 Blood Pressure 105/67 119/62 Pulse Oximetry 98 96 Body Mass Index 21.3 Labs Results: 10/21/20 11:46 10/22/20 07:58 Medications Medications Current Medications Generic Name Dose Route Start Last Admin Trade Name Freq PRN Reason Stop Dose Admin Acetaminophen 650 mg 10/21/20 18:04 10/22/20 20:34 Acetaminophen 325 Mg Tablet PO 650 mg Q6H PRN Administration Headache/Pain Mild Scale (1-3) Al Hydroxide/Mg Hydroxide 30 ml 10/21/20 18:04 10/26/20 21:07 Magnesium Hydrox/Alum Hydrox 30 Ml Oral.Susp PO 30 ml Q6H PRN Administration Heartburn/Nausea Albuterol Sulfate 2 puff 10/22/20 17:05 Albuterol Sulfate 90 Mcg 8 Gm Inhaler INHALE Q4H PRN Shortness of Breath Benztropine Mesylate 1 mg 10/22/20 21:00 10/26/20 20:34 Benztropine Mesylate 1 Mg Tablet PO 1 mg BEDTIME VICENTE Administration Bictegravir/Emtricitabine/Tenofovir 1 tab 10/22/20 21:00 10/26/20 20:33 Bictegrav/Emtricit/Tenofov Ala 1 Tab Tablet PO 1 tab BEDTIME VICENTE Administration Buprenorphine/Naloxone 1 film 10/23/20 09:00 10/27/20 09:15 Buprenorphine/Naloxone 12/3 Mg Film SUBLINGUAL 1 film DAILY VICENTE Administration Buprenorphine/Naloxone 1 film 10/22/20 21:00 10/26/20 20:34 Buprenorphine/Naloxone 8/2 Mg Film SUBLINGUAL 1 film BEDTIME VICENTE Administration Cyanocobalamin 500 mcg 10/23/20 09:00 10/27/20 09:15 Cyanocobalamin (Vitamin B-12) 500 Mcg Tablet PO 500 mcg DAILY VIECNTE Administration Hydroxyzine HCl 25 mg 10/21/20 18:04 Hydroxyzine Hcl 25 Mg Tablet PO Q6H PRN Anxiety Ibuprofen 600 mg 10/22/20 23:55 10/26/20 08:58 Ibuprofen 600 Mg Tablet PO 600 mg Q6H PRN Administration Pain, Moderate (Pain Scale 4-6 Magnesium Hydroxide 30 ml 10/21/20 18:04 Milk Of Magnesia 30 Ml Oral.Susp PO DAILY PRN Constipation Mirtazapine 7.5 mg 10/23/20 21:00 10/26/20 20:33 Mirtazapine 7.5 Mg Tablet PO 7.5 mg BEDTIME VICENTE Administration Nicotine 21 mg 10/22/20 14:55 10/27/20 09:15 Nicotine 21 Mg Patch.Td24 TRANSDERMA 21 mg DAILY VICENTE Administration Quetiapine Fumarate 200 mg 10/22/20 21:00 10/26/20 20:33 Quetiapine Fumarate 200 Mg Tablet PO 200 mg BEDTIME VICENTE Administration Sertraline HCl 75 mg 10/25/20 09:00 10/27/20 09:14 Sertraline Hcl 25 Mg Tablet PO 75 mg DAILY VICENTE Administration Allergies Allergies Allergy/AdvReac Type Severity Reaction Status Date / Time No Known Allergies Allergy Mild NO REACTION Verified 06/01/20 20:45 Assessment & Plan Assessment & Plan (1) Depression: Status: Acute Code(s): F32.9 - Major depressive disorder, single episode, unspecified (2) HIV (human immunodeficiency virus infection): Status: Acute Code(s): B20 - Human immunodeficiency virus [HIV] disease (3) Cocaine use disorder, severe, dependence: Status: Acute Code(s): F14.20 - Cocaine dependence, uncomplicated (4) Opioid use disorder, severe, in early remission, on maintenance therapy, dependence: Status: Acute Code(s): F11.21 - Opioid dependence, in remission Assessment and Plan: Patient is a 60-year-old male with history of depression, cocaine and opioid abuse, HIV, (hep c?) and who also carries a diagnosis of schizoaffective disorder and has multiple inpt admissions, who presents for suicidal ideation having superficially cut his arm and neck the face of relapse.? Patient reports auditory hallucinations only when he is upset; patient is somewhat limited historian and will need to collect collateral from sister.? Patient reports that his suicidal ideation is passing and he thinks that after few days here he will be back to his normal self.? He was to continue his home medications with the exception of mirtazapine. Hospital course pt at first depressed with passive SI and intermittent aVH but SI is passive, without intent or plans and chronic, able to be ignored restarted mirtazapine for insomnia; Inreased Zoloft to 75mg (back to prior home dose) -patient report he has doing much better. He says SI, AH and depression resolved. Patient in better mood and feels ready for discharge plan: Patient on CV Q 15 minutes checks Continue home medications Increased to Zoloft 75 mg Continue Mirtazapine 7.5 mg Biktarvy Seroquel 200 mg at bedtime Trazodone 50 mg at bedtime Benztropine 1 mg daily for TD (Had INCREASED) Suboxone to 12/3 mg in the morning and 8/2 mg in the evening for help with sobriety Greater than 50% of the session was spent on counseling and/or coordination of care Reason for contiued inpatient stay Substantial Risk for: stable for discharge
--- NOTE | 2020-10-27 16:01 | PM.PSYDC ---
DS: Providers Provider Date of Service: 10/28/20 Date of admission: 10/21/20 17:59 Date of discharge: 10/28/20 Primary care physician: Unknown Physician Attending physician on admission: Zi Fritz Attending physician on discharge: Zi Fritz DS: Diagnosis Discharge Diagnosis (1) Depression: Status: Chronic (2) HIV (human immunodeficiency virus infection): Status: Chronic (3) Cocaine use disorder, severe, dependence: Status: Chronic (4) Opioid use disorder, severe, in early remission, on maintenance therapy, dependence: Status: Chronic DS: Medications Discharge Medications Home Medications: Home Medications Medication Instructions Recorded Confirmed buprenorphine 8 mg-naloxone 2 mg 1 strip SUBLINGUAL BID 10/21/20 10/21/20 sublingual film (Suboxone) Previous Rx's Medication Instructions Recorded albuterol sulfate 90 mcg/actuation 2 puff INHALATION Q4H PRN 30 Days 10/27/20 aerosol inhaler (Ventolin HFA) #6.7 g benztropine 1 mg tablet 1 mg PO BEDTIME 30 Days #30 tab 10/27/20 bictegravir 50 mg-emtricitabine 1 tab PO BEDTIME 30 Days #30 tab 10/27/20 200 mg-tenofovir alafenam 25 mg tablet (Biktarvy) cyanocobalamin (vitamin B-12) 500 500 mcg PO DAILY 30 Days #30 tab 10/27/20 mcg tablet mirtazapine 7.5 mg tablet 7.5 mg PO BEDTIME 30 Days #30 tab 10/27/20 nicotine 21 mg/24 hr daily 21 mg TRANSDERMAL DAILY 30 Days 10/27/20 transdermal patch #28 ea quetiapine 200 mg tablet 200 mg PO BEDTIME 30 Days #30 tab 10/27/20 sertraline 25 mg tablet 75 mg PO DAILY 30 Days #90 tab 10/27/20 Mental Status Exam Mental Status Exam Narrative: Pt is alert and oriented; behavior is cooperative and calm; patient is not in distress; dressed in casual cloths, well groomed and with adequate hygiene; mood is described as good and affect brighter; eye contact appropriate; Speech regular rate, volume, prosody; no psychomotor retardation; thought process is goal oriented but concrete; Thought content is on continuing tx and pending discharge; otherwise TC relevant to pertinent topics and without any delusional content, paranoid ideations or grandiosity; denies any SI/HI; denies AVH; Patients insight and judgment appear intact. Data Data Completed and Pending Completed studies during hospitalization [Text1]: 10/21/20 10/21/20 10/21/20 02:03 02:03 11:46 WBC 5.5 RBC 4.22 L Hgb 12.6 L Hct 37.1 L MCV 87.9 MCH 29.9 MCHC 34.0 RDW 14.5 Plt Count 191 MPV 10.3 Immature Gran % (Auto) 0.5 H Neut % (Auto) 60.1 Lymph % (Auto) 20.2 [place] % (Auto) 15.3 H Eos % (Auto) 3.2 Baso % (Auto) 0.7 Lymph # (Auto) 1.1 L [place] # (Auto) 0.9 Eos # (Auto) 0.2 Baso # (Auto) 0.0 Abs Immat Gran (auto) 0.03 Absolute Neuts (auto) 3.3 Absolute Nucleated RBC 0.000 Nucleated RBC % (auto) 0.0 Sodium Potassium Chloride Carbon Dioxide Anion Gap BUN Creatinine Estim Creat Clear Calc Estimated GFR Fasting Glucose Estimat Average Glucose Hemoglobin A1c % Calcium Total Bilirubin AST ALT Alkaline Phosphatase Total Protein Albumin Triglycerides Cholesterol LDL Cholesterol, Calc HDL Cholesterol Urine Color Urine Appearance Urine pH Ur Specific [place] Urine Protein Urine Glucose (UA) Urine Ketones Urine Blood Urine Nitrite Ur Leukocyte Esterase Urine RBC Urine WBC Ur Squamous Epith Cells Calcium Oxalate Crystal Urine Bacteria Urine Mucus Urine Opiates Screen POSITIVE H Urine Fentanyl Screen POSITIVE H Ur Barbiturates Screen Not Detected Ur Phencyclidine Scrn Not Detected Ur Amphetamines Screen Not Detected U Benzodiazepines Scrn Not Detected Urine Cocaine Screen POSITIVE H U Marijuana (THC) Screen Not Detected COVID-19 (NEETU) Negative COVID-19 Clin Com See Note 10/22/20 10/22/20 10/22/20 07:58 07:59 15:15 WBC RBC Hgb Hct MCV MCH MCHC RDW Plt Count MPV Immature Gran % (Auto) Neut % (Auto) Lymph % (Auto) [place] % (Auto) Eos % (Auto) Baso % (Auto) Lymph # (Auto) [place] # (Auto) Eos # (Auto) Baso # (Auto) Abs Immat Gran (auto) Absolute Neuts (auto) Absolute Nucleated RBC Nucleated RBC % (auto) Sodium 141 Potassium 4.3 Chloride 110 H Carbon Dioxide 25 Anion Gap 10 L BUN 20 H D Creatinine 0.77 Estim Creat Clear Calc 90.9 Estimated GFR > 60 Fasting Glucose 93 Estimat Average Glucose 108 Hemoglobin A1c % 5.4 Calcium 9.2 D Total Bilirubin 0.5 AST 48 H ALT 22 Alkaline Phosphatase 116 Total Protein 7.1 Albumin 3.4 L Triglycerides 231 Cholesterol 186 LDL Cholesterol, Calc 118 HDL Cholesterol 22 Urine Color YELLOW Urine Appearance CLEAR Urine pH 6.0 Ur Specific [place] >= 1.030 H Urine Protein NEG Urine Glucose (UA) NEG Urine Ketones 5 Urine Blood NEG Urine Nitrite NEG Ur Leukocyte Esterase 1+ H Urine RBC 0 Urine WBC 5-9 H Ur Squamous Epith Cells TRACE Calcium Oxalate Crystal TRACE Urine Bacteria NONE Urine Mucus TRACE Urine Opiates Screen Urine Fentanyl Screen Ur Barbiturates Screen Ur Phencyclidine Scrn Ur Amphetamines Screen U Benzodiazepines Scrn Urine Cocaine Screen U Marijuana (THC) Screen COVID-19 (NEETU) COVID-19 Clin Com 10/22/20 11:25 Urine clean catch - Clean Catch Midstream Urine Culture - Final DS: Summary Hospital Course Hospital Course: Patient is a 60-year-old male with history of depression, cocaine and opioid abuse, HIV, (hep c?) and who also carries a diagnosis of schizoaffective disorder and has multiple inpt admissions, who presents for suicidal ideation having superficially cut his arm and neck the face of relapse.? In signed a CV. On admission patient reported continued depression with some SI but it had now transitioned into passive and only intermittent without any plans or intent. Patient reported intermittent AVH which he says is lessening and typically is only present when he is feeling upset or triggered. Patient was restarted on home medications of Zoloft; his mirtazapine was 1st held to see if he could do okay with just an SSRI however he had insomnia until mirtazapine was restarted. Patient was also restarted on his previous home medications of Seroquel, trazodone, benztropine and Biktarvy. Over the next few days patient's depression abated, SI fully resolved and his mood improved; AVH also lessened and resolved. Patient Suboxone was increased from 8/2 mg b.i.d. to 12/3 mg in the morning and 8/2 mg at bedtime since he reported Suboxone helps but he continues to have cravings on previous dose. Patient remained without SI or HI; he made a few inappropriate flirtatious comments to female staff but was redirectable and otherwise demonstrated appropriate behaviors and good and impulse control; patient also regularly attended groups. Patient reported he felt stable, safe and back to his normal self and asked for discharge back to his long term which was facilitated with the help of his out patient case specialist Brittani. On day of discharge, patient was in a good mood and continued to deny any SI, HI or AVH. He felt optimistic about staying sober with his increased Suboxone dose. Patient was not in imminent risk for harm to self or others and his request for discharge honored. Status at Discharge Functional status at discharge: independent ambulation Overall status at discharge: patient is back to baseline Time Spent with Patient Time attestation: Total time spent providing and/or coordinating discharge services: Time spent: Greater than 30 minutes Discharge Plan Discharge Patient Disposition: Home, Self-Care Discharge Diagnosis: MDD, recurrent, severe in full remission Referrals: Nu Delgado [Other] - 10/31/20 10:00 am (Initial Therapy Intake In person at [facility] ) Darcie Sellers [Other] - 11/26/20 10:00 am (Initial Psychiatric evaluation for medication services Appointment tele-health (telephone) with provider ) Darcie Sellers [Other] - 12/24/20 9:40 am (Follow-up appointment for medication management Tele-health appointment (Telephone) ) 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 to follow-up with [facility] regarding referral after discharge.) Daria Morales NP [Nurse Practitioner] - 11/18/20 1:15 pm (over the phone.) Discharge Medications: New nicotine 21 mg/24 hr Patch 24 Hour 21 mg transdermal DAILY 30 Days Qty: 28 RF: 0 albuterol sulfate [Ventolin HFA] 90 mcg/actuation Hfa Aerosol Inhaler 2 puff inhalation Q4H PRN (Reason: Shortness Of Breath) 30 Days Qty: 6.7 RF: 0 Biktarvy 50-200-25 mg Tablet 1 tab PO BEDTIME 30 Days Qty: 30 RF: 0 benztropine 1 mg Tablet 1 mg PO BEDTIME 30 Days Qty: 30 RF: 0 mirtazapine 7.5 mg Tablet 7.5 mg PO BEDTIME 30 Days Qty: 30 RF: 0 quetiapine 200 mg Tablet 200 mg PO BEDTIME 30 Days Qty: 30 RF: 0 sertraline 25 mg Tablet 75 mg PO DAILY 30 Days Qty: 90 RF: 0 cyanocobalamin (vitamin B-12) 500 mcg Tablet 500 mcg PO DAILY 30 Days Qty: 30 RF: 0 buprenorphine-naloxone [Suboxone] 8-2 mg Film 1 film sublingual BEDTIME 1 Days Qty: 1 RF: 0 buprenorphine-naloxone [Suboxone] 12-3 mg Film 1 film sublingual DAILY 1 Days Qty: 1 RF: 0 Discontinued buprenorphine-naloxone [Suboxone] 8-2 mg film 1 strip sublingual BID RF: 0 Discharge Orders: Discharge Order (Routine); Ordered 10/28/20 Ordered By: Zi Fritz Diet: regular diet Activity on Discharge: As tolerated Stand Alone Forms: Patient Portal Discharge page, Community Support Care Plan Goals: Maintain mood and safe behaviors Take medications as prescribed Continue to pursue sobriety Practice coping skills Continue with outpatient providers and reach out to them as needed Health Concerns: Mood stability and behaviors Chronic medical illnesses Sobriety Plan of Treatment: Follow up with your PCP and psychiatric provider regarding above concerns Take medications as prescribed Assessment: Risk assessment at time of discharge:? Patient was interviewed prior to discharge and found to be fully oriented and without any SI or HI. Patient has insight and demonstrates good judgment in terms of wanting to pursue treatment. Patient is not in imminent risk of harm to self or others and has a safety plan that includes presenting to the closest ER or calling 911 if feeling unsafe.? Patient has been observed closely by nursing and unit staff throughout admission; patient has not engaged in any behaviors that suggest dangerousness to self or others and has demonstrated appropriate behaviors and impulse control
[2020-10-27 18:00] VITALS: BP 122/84; PULSE 78; RESP 18; TEMP 36.6; O2SAT 100
[2020-10-27] MEDS: Buprenorphine/Naloxone 8/2 mg FILM 1 FILM SUBLINGUAL (20:24)
[2020-10-27] MEDS: Mirtazapine 7.5 MG TABLET PO (20:24)
[2020-10-27] MEDS: Benztropine Mesylate 1 MG TABLET PO (20:24)
[2020-10-27] MEDS: QUEtiapine Fumarate 200 MG TABLET PO (20:24)
[2020-10-28 06:00] VITALS: BP 117/75; PULSE 82; TEMP 36; O2SAT 96
[2020-10-28] MEDS: Nicotine 21 MG PATCH.TD24 TRANSDERMA (08:13)
[2020-10-28] MEDS: Sertraline HCL 25 MG TABLET 75 MG PO (08:13)
[2020-10-28] MEDS: Cyanocobalamin (Vitamin B-12) 500 MCG TABLET PO (08:13)
[2020-10-28] MEDS: Buprenorphine/Naloxone 12/3 mg FILM 1 FILM SUBLINGUAL (08:14)
[2020-10-28] MEDS: Naloxone HCl Nasal TAKE HOME 4 MG SPRAY NOSTRILALT (11:25)
== END 2020-10-28 13:10 | disposition home or self-care (01) | DRG 754 ==
LOC: HO.ED 06:09 → HO.PM5 18:25
PROVIDERS: Physician Assistant; Registered Nurse; Admitting Provider Psychiatry & Neurology Psychiatry; Emergency Provider Emergency Medicine; Visit Provider Psychiatry & Neurology Psychiatry
DX: F32.9 Major depressive disorder, single episode, unspecified (principal); R45.851 Suicidal ideations; F11.20 Opioid dependence, uncomplicated; Z20.822 Contact with and (suspected) exposure to COVID-19; Z21 Asymptomatic human immunodeficiency virus [HIV] infection status; F14.20 Cocaine dependence, uncomplicated; F17.210 Nicotine dependence, cigarettes, uncomplicated; Z71.6 Tobacco abuse counseling; Z79.899 Other long term (current) drug therapy
CPT/HCPCS: 36415; 80053; 80061; 80307; 81001; 83036; 85025; 87086; 87635; 93005; 99285

== ENCOUNTER 2020-11-16 07:03 | Emergency (ER) | payer MEDICAID, SELFPAY ==
[2020-11-16 07:15] VITALS: BP 112/70; PULSE 72; O2SAT 97
[2020-11-16 07:16] VITALS: BMI 24.2
--- NOTE | 2020-11-16 07:17 | ED_ITS ---
HPI - Psych General Chief Complaint: Psychiatric Symptoms <Julien Gallagher MD - Last Filed: 11/16/20 07:22> Stated Complaint: crisis <Julien Gallagher MD - Last Filed: 11/16/20 07:22> Time Seen by Provider: 11/16/20 07:17 <Julien Gallagher MD - Last Filed: 11/16/20 07:22> Source: patient <Julien Gallagher MD - Last Filed: 11/16/20 07:22> Mode of arrival: EMS <Julien Gallagher MD - Last Filed: 11/16/20 07:22> Limitations: no limitations <Julien Gallagher MD - Last Filed: 11/16/20 07:22> History of Present Illness HPI Narrative: Patient is to HIV schizoaffective disorder or multiple ER visits for suicidal ideation and overdose came by EMS for same had 5 bags today in walked all the way from [place] to the police station at [place] telling them that he was suicidal and a plan to overdose with heroin although he does not have any more bags. Patient says that he does have same feeling for long time every day feels same and asking for mental crisis help on arrival patient is hitting his head with hand which he does all the time and he comes to the ER <Julien Gallagher MD - Last Filed: 11/16/20 07:22> Related Data Home Medications: Previous Rx's Medication Instructions Recorded albuterol sulfate 90 mcg/actuation 2 puff INHALATION Q4H PRN 30 Days 10/27/20 aerosol inhaler (Ventolin HFA) #6.7 g benztropine 1 mg tablet 1 mg PO BEDTIME 30 Days #30 tab 10/27/20 bictegravir 50 mg-emtricitabine 1 tab PO BEDTIME 30 Days #30 tab 10/27/20 200 mg-tenofovir alafenam 25 mg tablet (Biktarvy) buprenorphine 12 mg-naloxone 3 mg 1 film SUBLINGUAL DAILY 1 Days #1 10/27/20 sublingual film (Suboxone) ea buprenorphine 8 mg-naloxone 2 mg 1 film SUBLINGUAL BEDTIME 1 Days 10/27/20 sublingual film (Suboxone) #1 ea cyanocobalamin (vitamin B-12) 500 500 mcg PO DAILY 30 Days #30 tab 10/27/20 mcg tablet mirtazapine 7.5 mg tablet 7.5 mg PO BEDTIME 30 Days #30 tab 10/27/20 nicotine 21 mg/24 hr daily 21 mg TRANSDERMAL DAILY 30 Days 10/27/20 transdermal patch #28 ea quetiapine 200 mg tablet 200 mg PO BEDTIME 30 Days #30 tab 10/27/20 sertraline 25 mg tablet 75 mg PO DAILY 30 Days #90 tab 10/27/20 <Julien Gallagher MD - Last Filed: 11/16/20 07:22> Allergies/Adverse Reactions: Allergies Allergy/AdvReac Type Severity Reaction Status Date / Time No Known Allergies Allergy Mild NO REACTION Verified 06/01/20 20:45 <Julien Gallagher MD - Last Filed: 11/16/20 07:22> Review of Systems Review of Systems: Constitutional : No Fever, No Chills ENT/Mouth : No Ear Pain, No Nasal Congestion, No sore throat Eyes: No Eye Pain, No Swelling, No Redness Cardiovascular : No Chest Pain, No SOB Respiratory : No Cough, No Sputum, No Dyspnea Gastrointestinal : No Nausea, No Vomiting, No Diarrhea, No Hematochezia, No Melena Genitourinary : No Dysuria, No Urinary Frequency, No Hematuria Musculoskeletal : No Myalgias Skin : No Skin Lesions, No rash Neuro : No Weakness, No Numbness, No Paresthesias, No Dizziness, No Headache Psych : positive Anxiety, positive Depression, positive SI Heme/Lymph: No Lymphadenopathy Endocrine : No Polyuria, No Polydipsia <Julien Gallagher MD - Last Filed: 11/16/20 07:22> [facility] Past Medical History Medical History: Medical History AIDS Asthma Cocaine use disorder, severe, dependence Depression Hepatitis C HIV (human immunodeficiency virus infection) Opioid dependence Opioid use disorder, severe, in early remission, on maintenance therapy, dependence Schizoaffective disorder Tardive dyskinesia <Julien Gallagher MD - Last Filed: 11/16/20 07:22> Social History Social History: Social History Household Members: Other Household Members Other:: Patient resides in [facility]. Housing: Other Housing Other:: [facility] Unable to assess alcohol history related to: Unknown Alcohol intake: unknown Patient Tobacco Use Status: Current everyday Tobacco user Tobacco use type: Cigarette Cigarette Packs Per Day: 0.5 Cigarettes Per Day: 10.0 Years Smoked: 40 e-Cigarette/Vaping Use: Former Use Second Hand Smoke Exposure: No Use of substances other than those prescribed or required for medical reasons: Yes Substance Use Type: Opiates Advance Directives: Yes Advance Directives on File: Yes Advance Directives Date on File: 01/29/20 service: No Sexual orientation: Straight/Heterosexual <Julien Gallagher MD - Last Filed: 11/16/20 07:22> Physical Exam Vital Signs: Vital Signs: Last Vital Signs Temp 97.8 F 11/16/20 15:11 Pulse 78 11/16/20 15:11 Resp 20 11/16/20 15:11 BP 99/65 11/16/20 15:11 Pulse Ox 93 11/16/20 15:11 Body Mass Index 24.2 <Julien Gallagher MD - Last Filed: 11/16/20 07:22> Vital Signs: Last Vital Signs Temp 97.8 F 11/16/20 15:11 Pulse 78 11/16/20 15:11 Resp 20 11/16/20 15:11 BP 99/65 11/16/20 15:11 Pulse Ox 93 11/16/20 15:11 Body Mass Index 24.2 <Lana Schwartz NP - Last Filed: 11/16/20 16:24> Appearance: Alert. Oriented X3. No acute distress. Anxious hitting his head with his hands Eyes: PERRLA, No Nystagmus ENT: Pharynx normal. Oral Mucosa moist Neck: Normal inspection. Neck supple. CVS: Normal heart rate and rhythm. Pulses normal. Respiratory: No respiratory distress. Equal air entry bilateral, no wheezing/rales/rhonchi Abdomen: Soft and nontender. Skin: Skin warm and dry. Normal skin color. Normal skin turgor. Extremities: No lower extremity edema. No calf tenderness Neuro: Oriented X 3. No motor deficit. No sensory deficit.No cerebellar signs , cranial nerves II-XII intact <Julien Gallagher MD - Last Filed: 11/16/20 07:22> Course Course Course Narrative: 1630-Seen by n. plan for discharge back to [facility]. No SI <Lana Schwartz NP - Last Filed: 11/16/20 16:24> MDM - Psych Lab Data Labs: Lab Results 11/16/20 Range/Units 07:56 Urine Opiates Screen POSITIVE H (Not Detect) Urine Fentanyl Screen POSITIVE H (Not Detect) Ur Barbiturates Screen Not Detected (Not Detect) Ur Phencyclidine Scrn Not Detected (Not Detect) Ur Amphetamines Screen Not Detected (Not Detect) U Benzodiazepines Scrn Not Detected (Not Detect) Urine Cocaine Screen POSITIVE H (Not Detect) U Marijuana (THC) Screen Not Detected (Not Detect) <Julien Gallagher MD - Last Filed: 11/16/20 07:22> Lab Results 11/16/20 Range/Units 07:56 Urine Opiates Screen POSITIVE H (Not Detect) Urine Fentanyl Screen POSITIVE H (Not Detect) Ur Barbiturates Screen Not Detected (Not Detect) Ur Phencyclidine Scrn Not Detected (Not Detect) Ur Amphetamines Screen Not Detected (Not Detect) U Benzodiazepines Scrn Not Detected (Not Detect) Urine Cocaine Screen POSITIVE H (Not Detect) U Marijuana (THC) Screen Not Detected (Not Detect) <Lana Schwartz NP - Last Filed: 11/16/20 16:24> Discharge Plan Discharge Clinical Impression: Polysubstance (including opioids) dependence, daily use <Julien Gallagher MD - Last Filed: 11/16/20 07:22> Patient Disposition: Home, Self-Care <Julien Gallagher MD - Last Filed: 11/16/20 07:22> Instructions: Polysubstance Abuse (ED) <Julien Gallagher MD - Last Filed: 11/16/20 07:22> Prescriptions: No Action nicotine 21 mg/24 hr Patch 24 Hour 21 mg transdermal DAILY 30 Days Qty: 28 RF: 0 albuterol sulfate [Ventolin HFA] 90 mcg/actuation Hfa Aerosol Inhaler 2 puff inhalation Q4H PRN (Reason: Shortness Of Breath) 30 Days Qty: 6.7 RF: 0 Biktarvy 50-200-25 mg Tablet 1 tab PO BEDTIME 30 Days Qty: 30 RF: 0 benztropine 1 mg Tablet 1 mg PO BEDTIME 30 Days Qty: 30 RF: 0 mirtazapine 7.5 mg Tablet 7.5 mg PO BEDTIME 30 Days Qty: 30 RF: 0 quetiapine 200 mg Tablet 200 mg PO BEDTIME 30 Days Qty: 30 RF: 0 sertraline 25 mg Tablet 75 mg PO DAILY 30 Days Qty: 90 RF: 0 cyanocobalamin (vitamin B-12) 500 mcg Tablet 500 mcg PO DAILY 30 Days Qty: 30 RF: 0 buprenorphine-naloxone [Suboxone] 8-2 mg Film 1 film sublingual BEDTIME 1 Days Qty: 1 RF: 0 buprenorphine-naloxone [Suboxone] 12-3 mg Film 1 film sublingual DAILY 1 Days Qty: 1 RF: 0 <Julien Gallagher MD - Last Filed: 11/16/20 07:22>
[2020-11-16 07:24] VITALS: BP 108/60; PULSE 95; RESP 18; TEMP 37.5; O2SAT 95
[2020-11-16] MEDS: LORazepam 1 MG TABLET 2 MG PO (07:28)
--- NOTE | 2020-11-16 08:01 | PC.NURSE ---
Pt has a history of substance abuse and presents with SI with a plan to OD. Pt is difficult to understand and is hitting himself, but he is cooperative with care. Pt changed into psych clothing with assistance from security. pt gave urine sample and its been sent. Pt given PO ativan to help with the restlessness and self destructive behavior. pt is now resting comfortably.
[2020-11-16 08:28] LABS: Amphetamine Screen Urine Not Detected (Not Detect); Barbiturates, Urine Not Detected (Not Detect); Benzodiazepines Screen Urine Not Detected (Not Detect); Cannabinoid Screen Urine Not Detected (Not Detect); Cocaine Screen Urine POSITIVE (Not Detect); Fentanyl, urine POSITIVE (Not Detect); Opiate Screen Urine POSITIVE (Not Detect); Phencyclidine Screen Urine Not Detected (Not Detect)
[2020-11-16] MEDS: QUEtiapine Fumarate 200 MG TABLET PO (09:54)
[2020-11-16 15:11] VITALS: BP 99/65; PULSE 78; RESP 20; TEMP 36.6; O2SAT 93
--- NOTE | 2020-11-16 15:38 | PC.NURSE ---
Pt has been sleeping all afternoon and appears to be in no distress. [facility]N is now at the bedside for evaluation. Pt is still drowsy, but able to partake in the assessment.
--- NOTE | 2020-11-16 16:38 | PC.NURSE ---
Pt has been evaluated by N and has been cleared for discharge. Ambulance has been booked for transport home. Pt is awake eating and is tolerating PO intake well.
== END 2020-11-16 18:37 | disposition home or self-care (01) ==
PROVIDERS: Emergency Provider Internal Medicine
DX: T40.1X1A Poisoning by heroin, accidental (unintentional), initial encounter (principal); R45.851 Suicidal ideations; F33.1 Major depressive disorder, recurrent, moderate; F11.20 Opioid dependence, uncomplicated; F14.10 Cocaine abuse, uncomplicated; F17.210 Nicotine dependence, cigarettes, uncomplicated; Y92.9 Unspecified place or not applicable; Z79.899 Other long term (current) drug therapy; Z71.6 Tobacco abuse counseling
CPT/HCPCS: 80307; 99284; 99285

== ENCOUNTER 2020-11-26 13:10 | Emergency (ER) | payer MEDICAID, SELFPAY ==
--- NOTE | 2020-11-26 13:21 | ED_ITS ---
HPI - Psych General Chief Complaint: ETOH/Substance Use Stated Complaint: PSYCH, SI W/ NO PLAN Time Seen by Provider: 11/26/20 13:21 Source: patient Mode of arrival: EMS Limitations: no limitations History of Present Illness HPI Narrative: Patient with history of schizoaffective disorder, HIV, opiate and cocaine use, depression multiple ED visits for suicidal ideation , well known to our facility just seen here on 11/16 for same comes here by EMS of feeling suicidal again with no plan, patient had 6 bags of heroin today and had cocaine, patient asking for food on arrival Related Data Previous Rx's Medication Instructions Recorded albuterol sulfate 90 mcg/actuation 2 puff INHALATION Q4H PRN 30 Days 10/27/20 aerosol inhaler (Ventolin HFA) #6.7 g benztropine 1 mg tablet 1 mg PO BEDTIME 30 Days #30 tab 10/27/20 bictegravir 50 mg-emtricitabine 1 tab PO BEDTIME 30 Days #30 tab 10/27/20 200 mg-tenofovir alafenam 25 mg tablet (Biktarvy) buprenorphine 12 mg-naloxone 3 mg 1 film SUBLINGUAL DAILY 1 Days #1 10/27/20 sublingual film (Suboxone) ea buprenorphine 8 mg-naloxone 2 mg 1 film SUBLINGUAL BEDTIME 1 Days 10/27/20 sublingual film (Suboxone) #1 ea cyanocobalamin (vitamin B-12) 500 500 mcg PO DAILY 30 Days #30 tab 10/27/20 mcg tablet mirtazapine 7.5 mg tablet 7.5 mg PO BEDTIME 30 Days #30 tab 10/27/20 nicotine 21 mg/24 hr daily 21 mg TRANSDERMAL DAILY 30 Days 10/27/20 transdermal patch #28 ea quetiapine 200 mg tablet 200 mg PO BEDTIME 30 Days #30 tab 10/27/20 sertraline 25 mg tablet 75 mg PO DAILY 30 Days #90 tab 10/27/20 Allergies Allergy/AdvReac Type Severity Reaction Status Date / Time No Known Allergies Allergy Mild NO REACTION Verified 06/01/20 20:45 Review of Systems Review of Systems: Constitutional : No Fever, No Chills ENT/Mouth : No Ear Pain, No Nasal Congestion, No sore throat Eyes: No Eye Pain, No Swelling, No Redness Cardiovascular : No Chest Pain, No SOB Respiratory : No Cough, No Sputum, No Dyspnea Gastrointestinal : No Nausea, No Vomiting, No Diarrhea, No Hematochezia, No Melena Genitourinary : No Dysuria, No Urinary Frequency, No Hematuria Musculoskeletal : No Myalgias Skin : No Skin Lesions, No rash Neuro : No Weakness, No Numbness, No Paresthesias, No Dizziness, No Headache Psych : positive Anxiety, positive Depression, positive SI Heme/Lymph: No Lymphadenopathy Endocrine : No Polyuria, No Polydipsia PMFSH Past Medical History Medical History AIDS Asthma Cocaine use disorder, severe, dependence Depression Hepatitis C HIV (human immunodeficiency virus infection) Opioid dependence Opioid use disorder, severe, in early remission, on maintenance therapy, dependence Schizoaffective disorder Tardive dyskinesia Social History Social History Household Members: Other Household Members Other:: Patient resides in correction. Housing: Other Housing Other:: Senior Living [facility] Unable to assess alcohol history related to: Unknown Alcohol intake: unknown Patient Tobacco Use Status: Current everyday Tobacco user Tobacco use type: Cigarette Cigarette Packs Per Day: 0.5 Cigarettes Per Day: 10.0 Years Smoked: 40 e-Cigarette/Vaping Use: Former Use Second Hand Smoke Exposure: No Substance Use Type: Opiates Advance Directives: Yes Advance Directives on File: Yes Advance Directives Date on File: 01/29/20 service: No Sexual orientation: Straight/Heterosexual Physical Exam Vital Signs: Vital Signs: Last Vital Signs Temp 97.5 F 11/26/20 15:57 Pulse 85 11/26/20 15:57 Resp 20 11/26/20 15:57 BP 102/52 L 11/26/20 15:57 Pulse Ox 97 11/26/20 15:57 Body Mass Index 22.3 Appearance: Alert. Oriented X3. No acute distress. Frequent body movements under influence of cocaine and heroin Eyes: PERRLA, no pallor or icterus ENT: Pharynx normal. Oral Mucosa moist Neck: Normal inspection. Neck supple. CVS: Normal heart rate and rhythm. Pulses normal. Respiratory: No respiratory distress. Equal air entry bilateral, no wheezing/rales/rhonchi Abdomen: Soft and nontender. Bowel sounds are present, no mass palpable, Skin: Skin warm and dry. Normal skin color. Normal skin turgor. Extremities: No lower extremity edema. No calf tenderness Neuro: Oriented X 3. No motor deficit. No sensory deficit.No cerebellar signs , cranial nerves II-XII intact , frequent movements of extremities Course Reevaluation(s) Reevaluation #1: Care team evaluated patient SI or HI, no auditory, tactile or visual hallucinations, denies depression at this time would like to go home. Care team evaluated the patient and he is safe for DC to the correction. Care team will get patient a cab back to the correction. Care team also spoke to the sister who agrees with this plan and feels like it would be good if he went back to the correction. He is safe for discharge to correction. MDM - Psych Lab Data Attestation: I reviewed the patient's lab results. Labs: Lab Results 11/26/20 11/26/20 Range/Units 13:45 16:30 Urine Opiates Screen POSITIVE H (Not Detect) Urine Fentanyl Screen POSITIVE H (Not Detect) Ur Barbiturates Screen Not Detected (Not Detect) Ur Phencyclidine Scrn Not Detected (Not Detect) Ur Amphetamines Screen Not Detected (Not Detect) U Benzodiazepines Scrn Not Detected (Not Detect) Urine Cocaine Screen POSITIVE H (Not Detect) U Marijuana (THC) Screen Not Detected (Not Detect) COVID-19 (NEETU) Negative (Negative) COVID-19 Clin Com See Note Discharge Plan Discharge Clinical Impression: Polysubstance abuse Patient Disposition: Home, Self-Care Instructions: Polysubstance Abuse (ED) Additional Instructions: Stop using heroin/cocaine Follow-up with therapist Prescriptions: No Action nicotine 21 mg/24 hr Patch 24 Hour 21 mg transdermal DAILY 30 Days Qty: 28 RF: 0 albuterol sulfate [Ventolin HFA] 90 mcg/actuation Hfa Aerosol Inhaler 2 puff inhalation Q4H PRN (Reason: Shortness Of Breath) 30 Days Qty: 6.7 RF: 0 Biktarvy 50-200-25 mg Tablet 1 tab PO BEDTIME 30 Days Qty: 30 RF: 0 benztropine 1 mg Tablet 1 mg PO BEDTIME 30 Days Qty: 30 RF: 0 mirtazapine 7.5 mg Tablet 7.5 mg PO BEDTIME 30 Days Qty: 30 RF: 0 quetiapine 200 mg Tablet 200 mg PO BEDTIME 30 Days Qty: 30 RF: 0 sertraline 25 mg Tablet 75 mg PO DAILY 30 Days Qty: 90 RF: 0 cyanocobalamin (vitamin B-12) 500 mcg Tablet 500 mcg PO DAILY 30 Days Qty: 30 RF: 0 buprenorphine-naloxone [Suboxone] 8-2 mg Film 1 film sublingual BEDTIME 1 Days Qty: 1 RF: 0 buprenorphine-naloxone [Suboxone] 12-3 mg Film 1 film sublingual DAILY 1 Days Qty: 1 RF: 0
[2020-11-26 13:28] VITALS: PULSE 109; O2SAT 89; BMI 22.3
[2020-11-26 13:30] VITALS: O2SAT 96
[2020-11-26] MEDS: QUEtiapine Fumarate 200 MG TABLET PO (13:47)
[2020-11-26 14:04] LABS: COVID-19 Test Negative (Negative)
[2020-11-26 15:57] VITALS: BP 102/52; PULSE 85; RESP 20; TEMP 36.4; O2SAT 97
--- NOTE | 2020-11-26 16:14 | PC.NURSE ---
Care team called and stated to send over a consult. consult sent over.
[2020-11-26 17:01] LABS: Amphetamine Screen Urine Not Detected (Not Detect); Barbiturates, Urine Not Detected (Not Detect); Benzodiazepines Screen Urine Not Detected (Not Detect); Cannabinoid Screen Urine Not Detected (Not Detect); Cocaine Screen Urine POSITIVE (Not Detect); Fentanyl, urine POSITIVE (Not Detect); Opiate Screen Urine POSITIVE (Not Detect); Phencyclidine Screen Urine Not Detected (Not Detect)
== END 2020-11-26 20:09 | disposition home or self-care (01) ==
PROVIDERS: Emergency Provider Internal Medicine
DX: F11.20 Opioid dependence, uncomplicated (principal); F14.20 Cocaine dependence, uncomplicated; F25.9 Schizoaffective disorder, unspecified; B20 Human immunodeficiency virus [HIV] disease; Z20.822 Contact with and (suspected) exposure to COVID-19
CPT/HCPCS: 36415; 80307; 87635; 99283; 99284

== ENCOUNTER 2020-12-25 14:25 | Emergency (ER) | payer MEDICAID, SELFPAY ==
[2020-12-25 14:30] VITALS: BP 130/82; BP 151/107; PULSE 117; PULSE 120; RESP 20; TEMP 37.4; O2SAT 95; O2SAT 99; BMI 22.9
--- NOTE | 2020-12-25 14:41 | PC.NURSE ---
Addendum entered by Emily Max 12/25/20 14:43: security checked cameras, patient seen walking out of hospital at 1430 Original Note: patient not found to be in chair shortly after RN triaged him. security/staff checked bathrooms. patient eloped.
== END 2020-12-25 15:03 | disposition left against medical advice (07) ==
LOC: HO.ED 14:47
PROVIDERS: Emergency Provider Emergency Medicine
DX: F11.90 Opioid use, unspecified, uncomplicated (principal); F14.90 Cocaine use, unspecified, uncomplicated
CPT/HCPCS: 99283

== ENCOUNTER 2021-01-28 13:26 | Emergency (ER) | payer MEDICAID, SELFPAY ==
[2021-01-28] VITALS (7 sets, daily range): BP systolic 78–150; BP diastolic 47–70; PULSE 81–118; RESP 16–24; TEMP 35.3–36.9; O2SAT 93–96; BMI 20.5
--- NOTE | ~2021-01-28 | XR_ITS ---
EXAMINATION: XR CHEST CLINICAL INFORMATION: Fall COMPARISON: August 24, 2020 TECHNIQUE: AP portable view of the chest was obtained. FINDINGS: No significant abnormality is noted involving the heart, lungs, mediastinum, bony thorax or soft tissues. XR/XR chest 1V IMPRESSION: No significant acute parenchymal disease.
--- NOTE | ~2021-01-28 | CT_ITS ---
EXAMINATION: CT HEAD WITHOUT CONTRAST CLINICAL INFORMATION: Fall, trauma, pain COMPARISON: CT head noncontrast 08/23/2019 TECHNIQUE: Contiguous axial imaging was performed from the skull base to vertex without intravenous administration of contrast. Additional 2-D coronal and sagittal reformatted images are generated on the CT workstation and uploaded to PACS. This CT examination was performed using dose optimization techniques as appropriate, variously including the following: *Automated exposure control *Adjustment of mA and/or kV according to patient size (this includes techniques or standardized protocols for targeted exams where dose is matched to indication/reason for exam; i.e. extremities or head) *Use of iterative reconstruction technique DLP: 938 mGy-cm FINDINGS: There is some motion artifact. Some images are repeated. There is no intracranial hemorrhage, hematoma, or extra-axial fluid collection. There is volume loss with prominence of the ventricles and cortical sulci and fissures and cisterns similar to prior study. No mass effect or edema. The adams-white matter differentiation appears well preserved . There is no visible acute territorial infarct or mass lesion. There are some punctate calcifications in the midbrain again seen, stable The calvarium appears intact. There is no pneumocephalus or orbital emphysema. The visualized sinuses and middle ears and mastoid air cells show no significant mucosal thickening. There are no air-fluid levels. CT/CT head/brain wo con IMPRESSION: No acute intracranial abnormality.
--- NOTE | 2021-01-28 14:18 | ED_ITS ---
HPI - General Adult General Chief complaint: ETOH/Substance Use <LOVELY Bradford - Last Filed: 01/29/21 11:44> Stated complaint: BODY PAIN <LOVELY Bradford - Last Filed: 01/29/21 11:44> Time Seen by Provider: 01/28/21 14:13 <LOVELY Bradford - Last Filed: 01/29/21 11:44> Source: patient and old records reviewed <Mony Lemon DO - Last Filed: 01/28/21 16:23> Mode of arrival: EMS <Mony Lemon DO - Last Filed: 01/28/21 16:23> Limitations: other (poor historian) <Mony Lemon DO - Last Filed: 01/28/21 16:23> History of Present Illness HPI narrative: lives at a [facility] has been using, prior notes <Mony Lemon DO - L ast Filed: 01/28/21 16:23> MD complaint: states he is thirsty no water 3 days, last used heroin 4 days ago <Mony Lemon DO - Last Filed: 01/28/21 16:23> Onset (ago): day(s) (4) <Mony Lemon DO - Last Filed: 01/28/21 16:23> Location: mouth <Mony Lemon DO - Last Filed: 01/28/21 16:23> Severity: moderate <Mony Lemon DO - Last Filed: 01/28/21 16:23> Relieving factors: none and other <Mony Lemon DO - Last Filed: 01/28/21 16:23> Exacerbating factors: other (drug use, not eating) <Mony Lemon DO - Last Filed: 01/28/21 16:23> Associated symptoms: other (states he thinks he fell today but did not have LOC or injure himself) <Mony Lemon DO - Last Filed: 01/28/21 16:23> Treatments prior to arrival: none <Mony Lemon DO - Last Filed: 01/28/21 16:23> Related Data Home medications: Previous Rx's Medication Instructions Recorded albuterol sulfate 90 mcg/actuation 2 puff INHALATION Q4H PRN 30 Days 10/27/20 aerosol inhaler (Ventolin HFA) #6.7 g benztropine 1 mg tablet 1 mg PO BEDTIME 30 Days #30 tab 10/27/20 bictegravir 50 mg-emtricitabine 1 tab PO BEDTIME 30 Days #30 tab 10/27/20 200 mg-tenofovir alafenam 25 mg tablet (Biktarvy) buprenorphine 12 mg-naloxone 3 mg 1 film SUBLINGUAL DAILY 1 Days #1 10/27/20 sublingual film (Suboxone) ea buprenorphine 8 mg-naloxone 2 mg 1 film SUBLINGUAL BEDTIME 1 Days 10/27/20 sublingual film (Suboxone) #1 ea cyanocobalamin (vitamin B-12) 500 500 mcg PO DAILY 30 Days #30 tab 10/27/20 mcg tablet mirtazapine 7.5 mg tablet 7.5 mg PO BEDTIME 30 Days #30 tab 10/27/20 nicotine 21 mg/24 hr daily 21 mg TRANSDERMAL DAILY 30 Days 10/27/20 transdermal patch #28 ea quetiapine 200 mg tablet 200 mg PO BEDTIME 30 Days #30 tab 10/27/20 sertraline 25 mg tablet 75 mg PO DAILY 30 Days #90 tab 10/27/20 <LOVELY Bradford - Last Filed: 01/29/21 11:44> Allergies/adverse reactions: Allergies Allergy/AdvReac Type Severity Reaction Status Date / Time No Known Allergies Allergy Mild NO REACTION Verified 06/01/20 20:45 <LOVELY Bradford - Last Filed: 01/29/21 11:44> Review of Systems Review of Systems: Constitutional : No Fever, No Chills, No Fatigue, No Malaise ENT/Mouth : No sore throat, No Rhinorrhea Eyes: No Eye Pain, No Swelling, No Redness Cardiovascular : No Chest Pain, No SOB Respiratory : No Cough, No Sputum, No Wheezing Gastrointestinal : No Nausea, No Vomiting, No Diarrhea, No Constipation, No abdominal Pain Genitourinary : No Dysuria, No Urinary Frequency, No Hematuria, Musculoskeletal : No joint pain, No Myalgias, No Joint Swelling Skin : No Skin Lesions, No rash Neuro : No Weakness, No Numbness, No Dizziness, No Headache Psych : pos Anxiety/Panic, No Depression Heme/Lymph: No Bruising, No Bleeding,No Lymphadenopathy Endocrine : No Polyuria, No Polydipsia All other systems reviewed and are negative <Mony Lemon DO - Last Filed: 01/28/21 16:23> [facility] Past Medical History Medical History: Medical History AIDS Asthma Cocaine use disorder, severe, dependence Depression Hepatitis C HIV (human immunodeficiency virus infection) Opioid dependence Opioid use disorder, severe, in early remission, on maintenance therapy, dependence Schizoaffective disorder Tardive dyskinesia <LOVELY Bradford - Last Filed: 01/29/21 11:44> Social History Social History: Social History Household Members: Other Household Members Other:: Patient resides in [facility]. Housing: Other [facility] Unable to assess alcohol history related to: Unknown Alcohol intake: unknown Patient Tobacco Use Status: Current everyday Tobacco user Tobacco use type: Cigarette Cigarette Packs Per Day: 0.5 Cigarettes Per Day: 10.0 Years Smoked: 40 e-Cigarette/Vaping Use: Former Use Second Hand Smoke Exposure: No Substance Use Type: Opiates Advance Directives Date on File: 01/29/20 service: No Sexual orientation: Straight/Heterosexual <LOVELY Bradford - Last Filed: 01/29/21 11:44> Physical Exam Vital Signs: Vital Signs: Last Vital Signs Temp 97.8 F 01/29/21 03:49 Pulse 68 01/29/21 03:49 Resp 16 01/29/21 06:08 BP 110/72 01/29/21 03:49 Pulse Ox 95 01/29/21 03:49 BMI result Body Mass Index 20.5 <LOVELY Bradford - Last Filed: 01/29/21 11:44> Vital Signs: Last Vital Signs Temp 97.8 F 01/29/21 03:49 Pulse 68 01/29/21 03:49 Resp 16 01/29/21 06:08 BP 110/72 01/29/21 03:49 Pulse Ox 95 01/29/21 03:49 BMI result Body Mass Index 20.5 <Mony Lemon DO - Last Filed: 01/28/21 16:23> Vital Signs: Last Vital Signs Temp 97.8 F 01/29/21 03:49 Pulse 68 01/29/21 03:49 Resp 16 01/29/21 06:08 BP 110/72 01/29/21 03:49 Pulse Ox 95 01/29/21 03:49 BMI result Body Mass Index 20.5 <Guido Robins MD - Last Filed: 01/29/21 05:59> Appearance: Alert. Oriented X3. No acute distress. Abnormal movements of upper and lower extremities Eyes: Pupils equal, round and reactive to light. ENT: Pharynx normal. Neck: Normal inspection. Neck supple. CVS: Normal heart rate and rhythm. Pulses normal. Respiratory: No respiratory distress. Breath sounds normal. Abdomen: Soft and non-tender. Skin: Skin warm and dry. Normal skin color. Normal skin turgor. Extremities: No lower extremity edema. small abrasion to R 3rd MCP full ROM Neuro: Oriented X 3. No motor deficit. No sensory deficit. <Mony Lemon DO - Last Filed: 01/28/21 16:23> Course Course Course Narrative: Patient presents to the ED for bodyaches. patient has pmh of drug abuse. patient states last use was 5 days ago. Patient's vital signs shows hypotension. Charge Nurse Faby made aware and she states she will place patient in bed in the main ED as soon as possible. Rapid medical screening ordered <LOVELY Bradford - Last Filed: 01/29/21 11:44> Patient presents to the ED for bodyaches. patient has pmh of drug abuse. patient states last use was 5 days ago. Patient's vital signs shows hypotension. Charge Nurse Faby made aware and she states she will place patient in bed in the main ED as soon as possible. Rapid medical screening ordered signed out to Dr. Metz once improved <Mony Lemon DO - Last Filed: 01/28/21 16:23> Reevaluation(s) Reevaluation #1: patient ambulating well, will give detox referral list <Guido Robins MD - Last Filed: 01/29/21 05:59> Time: 05:57 <Guido Robins MD - Last Filed: 01/29/21 05:59> Medical Decision Making MDM Narrative Medical decision making narrative: 60 yo male with hx of polysubstance abuse, schizoaffective do, HIV, abnormal movements - comes in states he last used 4 to 5 days ago he snorts he he hasn't been eating or drinking - he appears as if he used today, initial BP likely in error as he was moving around. At this time labs, IVF x 2L, PO hydration, CXR, CT head given reported fall dispo per results and improvement. <Mony Lemon DO - Last Filed: 01/28/21 16:23> Lab Data Result diagrams: : 01/28/21 15:11 01/28/21 15:11 <LOVELY Bradford - Last Filed: 01/29/21 11:44> Labs: Lab Results 01/28/21 01/28/21 01/28/21 Range/Units 15:11 15:11 15:11 WBC 8.3 (4.8-10.8) X10*3/uL RBC 4.53 L (4.60-5.80) X10*6/uL Hgb 13.2 L (14.0-18.0) g/dl Hct 39.9 L (42.0-52.0) % MCV 88.1 (80.0-98.0) fL MCH 29.1 (27.0-33.0) pg MCHC 33.1 (31.0-36.0) g/dl RDW 16.1 H (11.0-16.0) % Plt Count 150 L (160-400) X10*3/uL MPV 10.0 (9.4-12.4) fL Immature Gran % (Auto) 0.4 (0.0-0.4) % Neut % (Auto) 80.6 H (45-73) % Lymph % (Auto) 6.3 L (20-40) % [place] % (Auto) 12.5 H (2-11) % Eos % (Auto) 0.1 (0-4) % Baso % (Auto) 0.1 (0-2) % Lymph # (Auto) 0.5 L (1.2-4.9) X10*3/uL [place] # (Auto) 1.0 (0.1-1.2) X10*3/uL Eos # (Auto) 0.0 (0.0-0.4) X10*3/uL Baso # (Auto) 0.0 (0.0-0.2) X10*3/uL Abs Immat Gran (auto) 0.03 (0.00-0.03) X10*3/uL Absolute Neuts (auto) 6.7 (2.0-8.3) x10*3/uL Absolute Nucleated RBC 0.000 (0.0-0.012) X10*3/uL Nucleated RBC % (auto) 0.0 (0.0-0.2) /100WBC Sodium (135-145) mmol/L Potassium (3.3-5.1) mmol/L Chloride (96-108) mmol/L Carbon Dioxide (22-29) mmol/L Anion Gap (12-20) BUN (9-16) mg/dL Creatinine (0.5-1.4) mg/dL Estim Creat Clear Calc Estimated GFR Random Glucose (60-115) mg/dL Lactic Acid 1.6 (0.5-2.0) mmol/L Calcium (8.4-10.2) mg/dL Magnesium (1.6-2.6) mg/dL Total Bilirubin (0.0-1.0) mg/dL AST (5-37) U/L ALT (0-40) U/L Alkaline Phosphatase (39-117) U/L Total Creatine Kinase (38-174) U/L Total Protein (6.5-8.0) g/dL Albumin (3.5-5.0) g/dL Urine Color Urine Appearance Urine pH (5.0-8.0) Ur Specific [place] (1.005-1.025) Urine Protein (NEG-TRACE) MG/DL Urine Glucose (UA) (NEG) MG/DL Urine Ketones (NEG) MG/DL Urine Blood (NEG) Urine Nitrite (NEG) Ur Leukocyte Esterase (NEG) Urine Opiates Screen (Not Detect) Urine Fentanyl Screen (Not Detect) Ur Barbiturates Screen (Not Detect) Ur Phencyclidine Scrn (Not Detect) Ur Amphetamines Screen (Not Detect) U Benzodiazepines Scrn (Not Detect) Urine Cocaine Screen (Not Detect) U Marijuana (THC) Screen (Not Detect) Ethyl Alcohol < 10 mg/dL COVID-19 (NEETU) (Negative) COVID-19 Clin Com 12/15/21 12/15/21 12/15/21 Range/Units 15:11 15:11 22:23 WBC (4.8-10.8) X10*3/uL RBC (4.60-5.80) X10*6/uL Hgb (14.0-18.0) g/dl Hct (42.0-52.0) % MCV (80.0-98.0) fL MCH (27.0-33.0) pg MCHC (31.0-36.0) g/dl RDW (11.0-16.0) % Plt Count (160-400) X10*3/uL MPV (9.4-12.4) fL Immature Gran % (Auto) (0.0-0.4) % Neut % (Auto) (45-73) % Lymph % (Auto) (20-40) % [place] % (Auto) (2-11) % Eos % (Auto) (0-4) % Baso % (Auto) (0-2) % Lymph # (Auto) (1.2-4.9) X10*3/uL [place] # (Auto) (0.1-1.2) X10*3/uL Eos # (Auto) (0.0-0.4) X10*3/uL Baso # (Auto) (0.0-0.2) X10*3/uL Abs Immat Gran (auto) (0.00-0.03) X10*3/uL Absolute Neuts (auto) (2.0-8.3) x10*3/uL Absolute Nucleated RBC (0.0-0.012) X10*3/uL Nucleated RBC % (auto) (0.0-0.2) /100WBC Sodium 141 (135-145) mmol/L Potassium 4.8 (3.3-5.1) mmol/L Chloride 107 (96-108) mmol/L Carbon Dioxide 26 (22-29) mmol/L Anion Gap 13 (12-20) BUN 19 H (9-16) mg/dL Creatinine 1.35 (0.5-1.4) mg/dL Estim Creat Clear Calc 44.2 Estimated GFR 54 Random Glucose 86 (60-115) mg/dL Lactic Acid (0.5-2.0) mmol/L Calcium 9.7 (8.4-10.2) mg/dL Magnesium 2.5 (1.6-2.6) mg/dL Total Bilirubin 0.3 (0.0-1.0) mg/dL AST 44 H (5-37) U/L ALT 26 (0-40) U/L Alkaline Phosphatase 98 (39-117) U/L Total Creatine Kinase 399 H D (38-174) U/L Total Protein 7.7 (6.5-8.0) g/dL Albumin 3.8 (3.5-5.0) g/dL Urine Color YELLOW Urine Appearance CLEAR Urine pH 5.5 (5.0-8.0) Ur Specific [place] >= 1.030 H (1.005-1.025) Urine Protein TRACE (NEG-TRACE) MG/DL Urine Glucose (UA) NEG (NEG) MG/DL Urine Ketones NEG (NEG) MG/DL Urine Blood NEG (NEG) Urine Nitrite NEG (NEG) Ur Leukocyte Esterase NEG (NEG) Urine Opiates Screen (Not Detect) Urine Fentanyl Screen (Not Detect) Ur Barbiturates Screen (Not Detect) Ur Phencyclidine Scrn (Not Detect) Ur Amphetamines Screen (Not Detect) U Benzodiazepines Scrn (Not Detect) Urine Cocaine Screen (Not Detect) U Marijuana (THC) Screen (Not Detect) Ethyl Alcohol mg/dL COVID-19 (NEETU) Negative (Negative) COVID-19 Clin Com See Note 01/28/21 Range/Units 22:23 WBC (4.8-10.8) X10*3/uL RBC (4.60-5.80) X10*6/uL Hgb (14.0-18.0) g/dl Hct (42.0-52.0) % MCV (80.0-98.0) fL MCH (27.0-33.0) pg MCHC (31.0-36.0) g/dl RDW (11.0-16.0) % Plt Count (160-400) X10*3/uL MPV (9.4-12.4) fL Immature Gran % (Auto) (0.0-0.4) % Neut % (Auto) (45-73) % Lymph % (Auto) (20-40) % [place] % (Auto) (2-11) % Eos % (Auto) (0-4) % Baso % (Auto) (0-2) % Lymph # (Auto) (1.2-4.9) X10*3/uL [place] # (Auto) (0.1-1.2) X10*3/uL Eos # (Auto) (0.0-0.4) X10*3/uL Baso # (Auto) (0.0-0.2) X10*3/uL Abs Immat Gran (auto) (0.00-0.03) X10*3/uL Absolute Neuts (auto) (2.0-8.3) x10*3/uL Absolute Nucleated RBC (0.0-0.012) X10*3/uL Nucleated RBC % (auto) (0.0-0.2) /100WBC Sodium (135-145) mmol/L Potassium (3.3-5.1) mmol/L Chloride (96-108) mmol/L Carbon Dioxide (22-29) mmol/L Anion Gap (12-20) BUN (9-16) mg/dL Creatinine (0.5-1.4) mg/dL Estim Creat Clear Calc Estimated GFR Random Glucose (60-115) mg/dL Lactic Acid (0.5-2.0) mmol/L Calcium (8.4-10.2) mg/dL Magnesium (1.6-2.6) mg/dL Total Bilirubin (0.0-1.0) mg/dL AST (5-37) U/L ALT (0-40) U/L Alkaline Phosphatase (39-117) U/L Total Creatine Kinase (38-174) U/L Total Protein (6.5-8.0) g/dL Albumin (3.5-5.0) g/dL Urine Color Urine Appearance Urine pH (5.0-8.0) Ur Specific [place] (1.005-1.025) Urine Protein (NEG-TRACE) MG/DL Urine Glucose (UA) (NEG) MG/DL Urine Ketones (NEG) MG/DL Urine Blood (NEG) Urine Nitrite (NEG) Ur Leukocyte Esterase (NEG) Urine Opiates Screen POSITIVE H (Not Detect) Urine Fentanyl Screen POSITIVE H (Not Detect) Ur Barbiturates Screen Not Detected (Not Detect) Ur Phencyclidine Scrn Not Detected (Not Detect) Ur Amphetamines Screen Not Detected (Not Detect) U Benzodiazepines Scrn Not Detected (Not Detect) Urine Cocaine Screen POSITIVE H (Not Detect) U Marijuana (THC) Screen Not Detected (Not Detect) Ethyl Alcohol mg/dL COVID-19 (NEETU) (Negative) COVID-19 Clin Com <LOVELY Bradford - Last Filed: 01/29/21 11:44> Lab Results 01/28/21 01/28/21 01/28/21 Range/Units 15:11 15:11 15:11 WBC 8.3 (4.8-10.8) X10*3/uL RBC 4.53 L (4.60-5.80) X10*6/uL Hgb 13.2 L (14.0-18.0) g/dl Hct 39.9 L (42.0-52.0) % MCV 88.1 (80.0-98.0) fL MCH 29.1 (27.0-33.0) pg MCHC 33.1 (31.0-36.0) g/dl RDW 16.1 H (11.0-16.0) % Plt Count 150 L (160-400) X10*3/uL MPV 10.0 (9.4-12.4) fL Immature Gran % (Auto) 0.4 (0.0-0.4) % Neut % (Auto) 80.6 H (45-73) % Lymph % (Auto) 6.3 L (20-40) % [place] % (Auto) 12.5 H (2-11) % Eos % (Auto) 0.1 (0-4) % Baso % (Auto) 0.1 (0-2) % Lymph # (Auto) 0.5 L (1.2-4.9) X10*3/uL [place] # (Auto) 1.0 (0.1-1.2) X10*3/uL Eos # (Auto) 0.0 (0.0-0.4) X10*3/uL Baso # (Auto) 0.0 (0.0-0.2) X10*3/uL Abs Immat Gran (auto) 0.03 (0.00-0.03) X10*3/uL Absolute Neuts (auto) 6.7 (2.0-8.3) x10*3/uL Absolute Nucleated RBC 0.000 (0.0-0.012) X10*3/uL Nucleated RBC % (auto) 0.0 (0.0-0.2) /100WBC Sodium (135-145) mmol/L Potassium (3.3-5.1) mmol/L Chloride (96-108) mmol/L Carbon Dioxide (22-29) mmol/L Anion Gap (12-20) BUN (9-16) mg/dL Creatinine (0.5-1.4) mg/dL Estim Creat Clear Calc Estimated GFR Random Glucose (60-115) mg/dL Lactic Acid 1.6 (0.5-2.0) mmol/L Calcium (8.4-10.2) mg/dL Magnesium (1.6-2.6) mg/dL Total Bilirubin (0.0-1.0) mg/dL AST (5-37) U/L ALT (0-40) U/L Alkaline Phosphatase (39-117) U/L Total Creatine Kinase (38-174) U/L Total Protein (6.5-8.0) g/dL Albumin (3.5-5.0) g/dL Urine Color Urine Appearance Urine pH (5.0-8.0) Ur Specific [place] (1.005-1.025) Urine Protein (NEG-TRACE) MG/DL Urine Glucose (UA) (NEG) MG/DL Urine Ketones (NEG) MG/DL Urine Blood (NEG) Urine Nitrite (NEG) Ur Leukocyte Esterase (NEG) Urine Opiates Screen (Not Detect) Urine Fentanyl Screen (Not Detect) Ur Barbiturates Screen (Not Detect) Ur Phencyclidine Scrn (Not Detect) Ur Amphetamines Screen (Not Detect) U Benzodiazepines Scrn (Not Detect) Urine Cocaine Screen (Not Detect) U Marijuana (THC) Screen (Not Detect) Ethyl Alcohol < 10 mg/dL COVID-19 (NEETU) (Negative) COVID-19 Clin Com 01/28/21 01/28/21 01/28/21 Range/Units 15:11 15:11 22:23 WBC (4.8-10.8) X10*3/uL RBC (4.60-5.80) X10*6/uL Hgb (14.0-18.0) g/dl Hct (42.0-52.0) % MCV (80.0-98.0) fL MCH (27.0-33.0) pg MCHC (31.0-36.0) g/dl RDW (11.0-16.0) % Plt Count (160-400) X10*3/uL MPV (9.4-12.4) fL Immature Gran % (Auto) (0.0-0.4) % Neut % (Auto) (45-73) % Lymph % (Auto) (20-40) % [place] % (Auto) (2-11) % Eos % (Auto) (0-4) % Baso % (Auto) (0-2) % Lymph # (Auto) (1.2-4.9) X10*3/uL [place] # (Auto) (0.1-1.2) X10*3/uL Eos # (Auto) (0.0-0.4) X10*3/uL Baso # (Auto) (0.0-0.2) X10*3/uL Abs Immat Gran (auto) (0.00-0.03) X10*3/uL Absolute Neuts (auto) (2.0-8.3) x10*3/uL Absolute Nucleated RBC (0.0-0.012) X10*3/uL Nucleated RBC % (auto) (0.0-0.2) /100WBC Sodium 141 (135-145) mmol/L Potassium 4.8 (3.3-5.1) mmol/L Chloride 107 (96-108) mmol/L Carbon Dioxide 26 (22-29) mmol/L Anion Gap 13 (12-20) BUN 19 H (9-16) mg/dL Creatinine 1.35 (0.5-1.4) mg/dL Estim Creat Clear Calc 44.2 Estimated GFR 54 Random Glucose 86 (60-115) mg/dL Lactic Acid (0.5-2.0) mmol/L Calcium 9.7 (8.4-10.2) mg/dL Magnesium 2.5 (1.6-2.6) mg/dL Total Bilirubin 0.3 (0.0-1.0) mg/dL AST 44 H (5-37) U/L ALT 26 (0-40) U/L Alkaline Phosphatase 98 (39-117) U/L Total Creatine Kinase 399 H D (38-174) U/L Total Protein 7.7 (6.5-8.0) g/dL Albumin 3.8 (3.5-5.0) g/dL Urine Color YELLOW Urine Appearance CLEAR Urine pH 5.5 (5.0-8.0) Ur Specific [place] >= 1.030 H (1.005-1.025) Urine Protein TRACE (NEG-TRACE) MG/DL Urine Glucose (UA) NEG (NEG) MG/DL Urine Ketones NEG (NEG) MG/DL Urine Blood NEG (NEG) Urine Nitrite NEG (NEG) Ur Leukocyte Esterase NEG (NEG) Urine Opiates Screen (Not Detect) Urine Fentanyl Screen (Not Detect) Ur Barbiturates Screen (Not Detect) Ur Phencyclidine Scrn (Not Detect) Ur Amphetamines Screen (Not Detect) U Benzodiazepines Scrn (Not Detect) Urine Cocaine Screen (Not Detect) U Marijuana (THC) Screen (Not Detect) Ethyl Alcohol mg/dL COVID-19 (NEETU) Negative (Negative) COVID-19 Clin Com See Note 01/28/21 Range/Units 22:23 WBC (4.8-10.8) X10*3/uL RBC (4.60-5.80) X10*6/uL Hgb (14.0-18.0) g/dl Hct (42.0-52.0) % MCV (80.0-98.0) fL MCH (27.0-33.0) pg MCHC (31.0-36.0) g/dl RDW (11.0-16.0) % Plt Count (160-400) X10*3/uL MPV (9.4-12.4) fL Immature Gran % (Auto) (0.0-0.4) % Neut % (Auto) (45-73) % Lymph % (Auto) (20-40) % [place] % (Auto) (2-11) % Eos % (Auto) (0-4) % Baso % (Auto) (0-2) % Lymph # (Auto) (1.2-4.9) X10*3/uL [place] # (Auto) (0.1-1.2) X10*3/uL Eos # (Auto) (0.0-0.4) X10*3/uL Baso # (Auto) (0.0-0.2) X10*3/uL Abs Immat Gran (auto) (0.00-0.03) X10*3/uL Absolute Neuts (auto) (2.0-8.3) x10*3/uL Absolute Nucleated RBC (0.0-0.012) X10*3/uL Nucleated RBC % (auto) (0.0-0.2) /100WBC Sodium (135-145) mmol/L Potassium (3.3-5.1) mmol/L Chloride (96-108) mmol/L Carbon Dioxide (22-29) mmol/L Anion Gap (12-20) BUN (9-16) mg/dL Creatinine (0.5-1.4) mg/dL Estim Creat Clear Calc Estimated GFR Random Glucose (60-115) mg/dL Lactic Acid (0.5-2.0) mmol/L Calcium (8.4-10.2) mg/dL Magnesium (1.6-2.6) mg/dL Total Bilirubin (0.0-1.0) mg/dL AST (5-37) U/L ALT (0-40) U/L Alkaline Phosphatase (39-117) U/L Total Creatine Kinase (38-174) U/L Total Protein (6.5-8.0) g/dL Albumin (3.5-5.0) g/dL Urine Color Urine Appearance Urine pH (5.0-8.0) Ur Specific [place] (1.005-1.025) Urine Protein (NEG-TRACE) MG/DL Urine Glucose (UA) (NEG) MG/DL Urine Ketones (NEG) MG/DL Urine Blood (NEG) Urine Nitrite (NEG) Ur Leukocyte Esterase (NEG) Urine Opiates Screen POSITIVE H (Not Detect) Urine Fentanyl Screen POSITIVE H (Not Detect) Ur Barbiturates Screen Not Detected (Not Detect) Ur Phencyclidine Scrn Not Detected (Not Detect) Ur Amphetamines Screen Not Detected (Not Detect) U Benzodiazepines Scrn Not Detected (Not Detect) Urine Cocaine Screen POSITIVE H (Not Detect) U Marijuana (THC) Screen Not Detected (Not Detect) Ethyl Alcohol mg/dL COVID-19 (NEETU) (Negative) COVID-19 Clin Com <Mony Xochilt, DO - Last Filed: 01/28/21 16:23> Lab Results 01/28/21 01/28/21 01/28/21 Range/Units 15:11 15:11 15:11 WBC 8.3 (4.8-10.8) X10*3/uL RBC 4.53 L (4.60-5.80) X10*6/uL Hgb 13.2 L (14.0-18.0) g/dl Hct 39.9 L (42.0-52.0) % MCV 88.1 (80.0-98.0) fL MCH 29.1 (27.0-33.0) pg MCHC 33.1 (31.0-36.0) g/dl RDW 16.1 H (11.0-16.0) % Plt Count 150 L (160-400) X10*3/uL MPV 10.0 (9.4-12.4) fL Immature Gran % (Auto) 0.4 (0.0-0.4) % Neut % (Auto) 80.6 H (45-73) % Lymph % (Auto) 6.3 L (20-40) % [place] % (Auto) 12.5 H (2-11) % Eos % (Auto) 0.1 (0-4) % Baso % (Auto) 0.1 (0-2) % Lymph # (Auto) 0.5 L (1.2-4.9) X10*3/uL [place] # (Auto) 1.0 (0.1-1.2) X10*3/uL Eos # (Auto) 0.0 (0.0-0.4) X10*3/uL Baso # (Auto) 0.0 (0.0-0.2) X10*3/uL Abs Immat Gran (auto) 0.03 (0.00-0.03) X10*3/uL Absolute Neuts (auto) 6.7 (2.0-8.3) x10*3/uL Absolute Nucleated RBC 0.000 (0.0-0.012) X10*3/uL Nucleated RBC % (auto) 0.0 (0.0-0.2) /100WBC Sodium (135-145) mmol/L Potassium (3.3-5.1) mmol/L Chloride (96-108) mmol/L Carbon Dioxide (22-29) mmol/L Anion Gap (12-20) BUN (9-16) mg/dL Creatinine (0.5-1.4) mg/dL Estim Creat Clear Calc Estimated GFR Random Glucose (60-115) mg/dL Lactic Acid 1.6 (0.5-2.0) mmol/L Calcium (8.4-10.2) mg/dL Magnesium (1.6-2.6) mg/dL Total Bilirubin (0.0-1.0) mg/dL AST (5-37) U/L ALT (0-40) U/L Alkaline Phosphatase (39-117) U/L Total Creatine Kinase (38-174) U/L Total Protein (6.5-8.0) g/dL Albumin (3.5-5.0) g/dL Urine Color Urine Appearance Urine pH (5.0-8.0) Ur Specific [place] (1.005-1.025) Urine Protein (NEG-TRACE) MG/DL Urine Glucose (UA) (NEG) MG/DL Urine Ketones (NEG) MG/DL Urine Blood (NEG) Urine Nitrite (NEG) Ur Leukocyte Esterase (NEG) Urine Opiates Screen (Not Detect) Urine Fentanyl Screen (Not Detect) Ur Barbiturates Screen (Not Detect) Ur Phencyclidine Scrn (Not Detect) Ur Amphetamines Screen (Not Detect) U Benzodiazepines Scrn (Not Detect) Urine Cocaine Screen (Not Detect) U Marijuana (THC) Screen (Not Detect) Ethyl Alcohol < 10 mg/dL COVID-19 (NEETU) (Negative) COVID-19 Clin Com 01/28/21 01/28/21 01/28/21 Range/Units 15:11 15:11 22:23 WBC (4.8-10.8) X10*3/uL RBC (4.60-5.80) X10*6/uL Hgb (14.0-18.0) g/dl Hct (42.0-52.0) % MCV (80.0-98.0) fL MCH (27.0-33.0) pg MCHC (31.0-36.0) g/dl RDW (11.0-16.0) % Plt Count (160-400) X10*3/uL MPV (9.4-12.4) fL Immature Gran % (Auto) (0.0-0.4) % Neut % (Auto) (45-73) % Lymph % (Auto) (20-40) % [place] % (Auto) (2-11) % Eos % (Auto) (0-4) % Baso % (Auto) (0-2) % Lymph # (Auto) (1.2-4.9) X10*3/uL [place] # (Auto) (0.1-1.2) X10*3/uL Eos # (Auto) (0.0-0.4) X10*3/uL Baso # (Auto) (0.0-0.2) X10*3/uL Abs Immat Gran (auto) (0.00-0.03) X10*3/uL Absolute Neuts (auto) (2.0-8.3) x10*3/uL Absolute Nucleated RBC (0.0-0.012) X10*3/uL Nucleated RBC % (auto) (0.0-0.2) /100WBC Sodium 141 (135-145) mmol/L Potassium 4.8 (3.3-5.1) mmol/L Chloride 107 (96-108) mmol/L Carbon Dioxide 26 (22-29) mmol/L Anion Gap 13 (12-20) BUN 19 H (9-16) mg/dL Creatinine 1.35 (0.5-1.4) mg/dL Estim Creat Clear Calc 44.2 Estimated GFR 54 Random Glucose 86 (60-115) mg/dL Lactic Acid (0.5-2.0) mmol/L Calcium 9.7 (8.4-10.2) mg/dL Magnesium 2.5 (1.6-2.6) mg/dL Total Bilirubin 0.3 (0.0-1.0) mg/dL AST 44 H (5-37) U/L ALT 26 (0-40) U/L Alkaline Phosphatase 98 (39-117) U/L Total Creatine Kinase 399 H D (38-174) U/L Total Protein 7.7 (6.5-8.0) g/dL Albumin 3.8 (3.5-5.0) g/dL Urine Color YELLOW Urine Appearance CLEAR Urine pH 5.5 (5.0-8.0) Ur Specific [place] >= 1.030 H (1.005-1.025) Urine Protein TRACE (NEG-TRACE) MG/DL Urine Glucose (UA) NEG (NEG) MG/DL Urine Ketones NEG (NEG) MG/DL Urine Blood NEG (NEG) Urine Nitrite NEG (NEG) Ur Leukocyte Esterase NEG (NEG) Urine Opiates Screen (Not Detect) Urine Fentanyl Screen (Not Detect) Ur Barbiturates Screen (Not Detect) Ur Phencyclidine Scrn (Not Detect) Ur Amphetamines Screen (Not Detect) U Benzodiazepines Scrn (Not Detect) Urine Cocaine Screen (Not Detect) U Marijuana (THC) Screen (Not Detect) Ethyl Alcohol mg/dL COVID-19 (NEETU) Negative (Negative) COVID-19 Clin Com See Note 01/28/21 Range/Units 22:23 WBC (4.8-10.8) X10*3/uL RBC (4.60-5.80) X10*6/uL Hgb (14.0-18.0) g/dl Hct (42.0-52.0) % MCV (80.0-98.0) fL MCH (27.0-33.0) pg MCHC (31.0-36.0) g/dl RDW (11.0-16.0) % Plt Count (160-400) X10*3/uL MPV (9.4-12.4) fL Immature Gran % (Auto) (0.0-0.4) % Neut % (Auto) (45-73) % Lymph % (Auto) (20-40) % [place] % (Auto) (2-11) % Eos % (Auto) (0-4) % Baso % (Auto) (0-2) % Lymph # (Auto) (1.2-4.9) X10*3/uL [place] # (Auto) (0.1-1.2) X10*3/uL Eos # (Auto) (0.0-0.4) X10*3/uL Baso # (Auto) (0.0-0.2) X10*3/uL Abs Immat Gran (auto) (0.00-0.03) X10*3/uL Absolute Neuts (auto) (2.0-8.3) x10*3/uL Absolute Nucleated RBC (0.0-0.012) X10*3/uL Nucleated RBC % (auto) (0.0-0.2) /100WBC Sodium (135-145) mmol/L Potassium (3.3-5.1) mmol/L Chloride (96-108) mmol/L Carbon Dioxide (22-29) mmol/L Anion Gap (12-20) BUN (9-16) mg/dL Creatinine (0.5-1.4) mg/dL Estim Creat Clear Calc Estimated GFR Random Glucose (60-115) mg/dL Lactic Acid (0.5-2.0) mmol/L Calcium (8.4-10.2) mg/dL Magnesium (1.6-2.6) mg/dL Total Bilirubin (0.0-1.0) mg/dL AST (5-37) U/L ALT (0-40) U/L Alkaline Phosphatase (39-117) U/L Total Creatine Kinase (38-174) U/L Total Protein (6.5-8.0) g/dL Albumin (3.5-5.0) g/dL Urine Color Urine Appearance Urine pH (5.0-8.0) Ur Specific [place] (1.005-1.025) Urine Protein (NEG-TRACE) MG/DL Urine Glucose (UA) (NEG) MG/DL Urine Ketones (NEG) MG/DL Urine Blood (NEG) Urine Nitrite (NEG) Ur Leukocyte Esterase (NEG) Urine Opiates Screen POSITIVE H (Not Detect) Urine Fentanyl Screen POSITIVE H (Not Detect) Ur Barbiturates Screen Not Detected (Not Detect) Ur Phencyclidine Scrn Not Detected (Not Detect) Ur Amphetamines Screen Not Detected (Not Detect) U Benzodiazepines Scrn Not Detected (Not Detect) Urine Cocaine Screen POSITIVE H (Not Detect) U Marijuana (THC) Screen Not Detected (Not Detect) Ethyl Alcohol mg/dL COVID-19 (NEETU) (Negative) COVID-19 Clin Com <Guido Robins MD - Last Filed: 01/29/21 05:59> ECG Data Attestation: I personally reviewed and interpreted this ECG as follows: <Mony Lemon DO - Last Filed: 01/28/21 16:23> Interpretation: Rate: 90 Rhythm: NSR with 1st degree AVB [place]: normal Normal P waves. Normal ARNULFO. Normal QRS complex. ST T wave : inverted V1-V2 no HAKEEM qTC: normal prior studies: no acute ischemia, no change from prior The study has been interpreted contemporaneously by me. . <Mony Lemon DO - Last Filed: 01/28/21 16:23> Discharge Plan Discharge Clinical Impression: Polysubstance (including opioids) dependence, daily use <LOVELY Bradford - Last Filed: 01/29/21 11:44> Patient Disposition: Home, Self-Care <LOVELY Bradford - Last Filed: 01/29/21 11:44> Instructions: Narcotic Use Disorder (ED) <LOVELY Bradford - Last Filed: 01/29/21 11:44> Prescriptions: No Action nicotine 21 mg/24 hr Patch 24 Hour 21 mg transdermal DAILY 30 Days Qty: 28 RF: 0 albuterol sulfate [Ventolin HFA] 90 mcg/actuation Hfa Aerosol Inhaler 2 puff inhalation Q4H PRN (Reason: Shortness Of Breath) 30 Days Qty: 6.7 RF: 0 Biktarvy 50-200-25 mg Tablet 1 tab PO BEDTIME 30 Days Qty: 30 RF: 0 benztropine 1 mg Tablet 1 mg PO BEDTIME 30 Days Qty: 30 RF: 0 mirtazapine 7.5 mg Tablet 7.5 mg PO BEDTIME 30 Days Qty: 30 RF: 0 quetiapine 200 mg Tablet 200 mg PO BEDTIME 30 Days Qty: 30 RF: 0 sertraline 25 mg Tablet 75 mg PO DAILY 30 Days Qty: 90 RF: 0 cyanocobalamin (vitamin B-12) 500 mcg Tablet 500 mcg PO DAILY 30 Days Qty: 30 RF: 0 buprenorphine-naloxone [Suboxone] 8-2 mg Film 1 film sublingual BEDTIME 1 Days Qty: 1 RF: 0 buprenorphine-naloxone [Suboxone] 12-3 mg Film 1 film sublingual DAILY 1 Days Qty: 1 RF: 0 <LOVELY Bradford - Last Filed: 01/29/21 11:44> Referrals: [place] [Primary Care Provider] - 5 days <LOVELY Bradford Last Filed: 01/29/21 11:44> Interventions: ED Discharge Assessment Last Done: 01/29/21 06:09 <LOVELY Bradford - Last Filed: 01/29/21 11:44> Discharge Date/Time: 01/29/21 06:10 <LOVELY Bradford - Last Filed: 01/29/21 11:44>
--- NOTE | 2021-01-28 14:49 | ECG_ITS ---
Test Reason : WEAKNESS Blood Pressure : / mmHG Vent. Rate : 090 BPM Atrial Rate : 090 BPM P-R Int : 218 ms QRS Dur : 088 ms QT Int : 382 ms P-R-T Axes : 053 062 034 degrees QTc Int : 467 ms Sinus rhythm with 1st degree A-V block Otherwise normal ECG When compared with ECG of 21-OCT-2020 12:04, No significant change was found Referred By: Mony Lemon Electronically Signed By:DOUG ZHONG MD
[2021-01-28 15:18] LABS: MANUAL DIFF FLAG NO
[2021-01-28 15:19] LABS: Basophils Percent Auto 0.1 % (0-2); Eosinophils Percent Auto 0.1 % (0-4); Hematocrit 39.9 % (42.0-52.0); Hemoglobin 13.2 g/dl (14.0-18.0); Imm Gran Abs Auto 0.03 X10*3/uL (0.00-0.03); Imm Gran Pct Auto 0.4 % (0.0-0.4); Lymphocytes Absolute Auto 0.5 X10*3/uL (1.2-4.9); Lymphocytes Percent Auto 6.3 % (20-40); Mean Corpuscular HGB Conc 33.1 g/dl (31.0-36.0); Mean Corpuscular Hemoglobin 29.1 pg (27.0-33.0); Mean Corpuscular Volume 88.1 fL (80.0-98.0); Monocytes Percent Auto 12.5 % (2-11); Neutrophils Absolute Auto 6.7 x10*3/uL (2.0-8.3); Neutrophils Percent Auto 80.6 % (45-73); Platelet Count 150 X10*3/uL (160-400); Red Blood Count 4.53 X10*6/uL (4.60-5.80); Red Cell Distribution Width 16.1 % (11.0-16.0); White Blood Count 8.3 X10*3/uL (4.8-10.8)
[2021-01-28 15:31] LABS: Lactic Acid 1.6 mmol/L (0.5-2.0)
[2021-01-28 15:33] LABS: Ethanol < 10 mg/dL
[2021-01-28 15:34] LABS: COVID-19 Test Negative (Negative)
[2021-01-28 15:38] LABS: Alanine Aminotransferase 26 U/L (0-40); Albumin Level 3.8 g/dL (3.5-5.0); Alkaline Phosphatase 98 U/L (39-117); Anion Gap 13 (12-20); Aspartate Amino Transferase 44 U/L (5-37); Bilirubin Total 0.3 mg/dL (0.0-1.0); Blood Urea Nitrogen 19 mg/dL (9-16); Calcium 9.7 mg/dL (8.4-10.2); Carbon Dioxide 26 mmol/L (22-29); Chloride 107 mmol/L (96-108); Creatinine Clr Calc Pharmacy 44.2; Estimated Glomerular Filt Rate 54; Glucose Random 86 mg/dL (60-115); Magnesium 2.5 mg/dL (1.6-2.6); Potassium 4.8 mmol/L (3.3-5.1); Sodium 141 mmol/L (135-145); Total Protein 7.7 g/dL (6.5-8.0)
[2021-01-28] MEDS: 0.9 % Sodium Chloride 1,000 ML 999 ML IVCONT ×2 (15:49→17:19)
[2021-01-28 22:29] LABS: Appearance Urine CLEAR; Color Urine YELLOW; Glucose Urine UA NEG (NEG); Leukocyte Esterase Urine NEG (NEG); Nitrite Urine NEG (NEG); PH 5.5 (5.0-8.0); Specific Gravity - Urine >= 1.030 (1.005-1.025); Urine Blood NEG (NEG); Urine Ketones NEG (NEG); Urine Protein TRACE MG/DL (NEG-TRACE)
[2021-01-28 22:43] LABS: Amphetamine Screen Urine Not Detected (Not Detect); Barbiturates, Urine Not Detected (Not Detect); Benzodiazepines Screen Urine Not Detected (Not Detect); Cannabinoid Screen Urine Not Detected (Not Detect); Cocaine Screen Urine POSITIVE (Not Detect); Fentanyl, urine POSITIVE (Not Detect); Opiate Screen Urine POSITIVE (Not Detect); Phencyclidine Screen Urine Not Detected (Not Detect)
[2021-01-29 03:49] VITALS: BP 110/72; PULSE 68; RESP 16; TEMP 36.6; O2SAT 95
[2021-01-29 06:08] VITALS: RESP 16
== END 2021-01-29 06:10 | disposition home or self-care (01) ==
PROVIDERS: Physician Assistant; Emergency Provider Emergency Medicine
DX: F11.20 Opioid dependence, uncomplicated (principal); F14.20 Cocaine dependence, uncomplicated; I95.9 Hypotension, unspecified; B20 Human immunodeficiency virus [HIV] disease; Z20.822 Contact with and (suspected) exposure to COVID-19
CPT/HCPCS: 36415; 70450; 71045; 80053; 80307; 81003; 82077; 82550; 83605; 83735; 85025; 87635; 93005; 96360; 99285

== ENCOUNTER 2021-03-03 00:32 | Emergency (ER) | payer MEDICAID, SELFPAY ==
--- NOTE | 2021-03-03 00:43 | ED_ITS ---
HPI - Psych General Chief Complaint: Psychiatric Symptoms <Luann Rubi MD - Last Filed: 03/03/21 01:00> Stated Complaint: SI voluntary <Luann Rubi MD - Last Filed: 03/03/21 01:00> Time Seen by Provider: 03/03/21 00:43 <Luann Rubi MD - Last Filed: 03/03/21 01:00> History of Present Illness HPI Narrative: 60 years old history of HIV history of polysubstance abuse presented today with having suicidal ideation. Patient had plans of using heroin and cocaine to kill himself. Patient lives in a assisted. Went to a police station stating that he wants to kill himself. Has a history of polysubstance abuse has a history of schizoaffective disorder is currently on Suboxone therapy. <Luann Rubi MD - Last Filed: 03/03/21 01:00> Related Data Home Medications: Previous Rx's Medication Instructions Recorded albuterol sulfate 90 mcg/actuation 2 puff INHALATION Q4H PRN 30 Days 10/27/20 aerosol inhaler (Ventolin HFA) #6.7 g benztropine 1 mg tablet 1 mg PO BEDTIME 30 Days #30 tab 10/27/20 bictegravir 50 mg-emtricitabine 1 tab PO BEDTIME 30 Days #30 tab 10/27/20 200 mg-tenofovir alafenam 25 mg tablet (Biktarvy) buprenorphine 12 mg-naloxone 3 mg 1 film SUBLINGUAL DAILY 1 Days #1 10/27/20 sublingual film (Suboxone) ea buprenorphine 8 mg-naloxone 2 mg 1 film SUBLINGUAL BEDTIME 1 Days 10/27/20 sublingual film (Suboxone) #1 ea cyanocobalamin (vitamin B-12) 500 500 mcg PO DAILY 30 Days #30 tab 10/27/20 mcg tablet mirtazapine 7.5 mg tablet 7.5 mg PO BEDTIME 30 Days #30 tab 10/27/20 nicotine 21 mg/24 hr daily 21 mg TRANSDERMAL DAILY 30 Days 10/27/20 transdermal patch #28 ea quetiapine 200 mg tablet 200 mg PO BEDTIME 30 Days #30 tab 10/27/20 sertraline 25 mg tablet 75 mg PO DAILY 30 Days #90 tab 10/27/20 <Luann Rubi MD - Last Filed: 03/03/21 01:00> Allergies/Adverse Reactions: Allergies Allergy/AdvReac Type Severity Reaction Status Date / Time No Known Allergies Allergy Mild NO REACTION Verified 06/01/20 20:45 <Luann Rubi MD - Last Filed: 03/03/21 01:00> Review of Systems Review of Systems: No fever no chills no chest pain or shortness of breath <Luann Rubi MD - Last Filed: 03/03/21 01:00> Yes all other systems are reviewed and are negative <Luann Rubi MD - Last Filed: 03/03/21 01:00> [facility] Past Medical History Attestation statement: The following information was validated with the patient. <Luann Rubi MD - Last Filed: 03/03/21 01:00> Medical History: Medical History AIDS Asthma Cocaine use disorder, severe, dependence Depression Hepatitis C HIV (human immunodeficiency virus infection) Opioid dependence Opioid use disorder, severe, in early remission, on maintenance therapy, dependence Schizoaffective disorder Tardive dyskinesia <Luann Rubi MD - Last Filed: 03/03/21 01:00> Social History Social History: Social History Household Members: Other Household Members Other:: Patient resides in assisted. Housing: Other Housing Other:: [facility] Unable to assess alcohol history related to: Unknown Alcohol intake: unknown Patient Tobacco Use Status: Current everyday Tobacco user Tobacco use type: Cigarette Cigarette Packs Per Day: 0.5 Cigarettes Per Day: 10.0 Years Smoked: 40 e-Cigarette/Vaping Use: Former Use Second Hand Smoke Exposure: No Substance Use Type: Opiates Advance Directives: Yes Advance Directives on File: Yes Advance Directives Date on File: 01/29/20 service: No Sexual orientation: Straight/Heterosexual <Luann Rubi MD - Last Filed: 03/03/21 01:00> Physical Exam Vital Signs: Vital Signs: Last Vital Signs Temp 98.7 F 03/03/21 00:48 Pulse 73 03/03/21 00:48 Resp 16 03/03/21 00:48 BP 134/81 03/03/21 00:48 Pulse Ox 94 03/03/21 00:48 BMI result Body Mass Index 22.2 Appearance: Alert. Oriented X3. No acute distress. Eyes: Pupils equal, round and reactive to light. ENT: Pharynx normal. Neck: Normal inspection. Neck supple. No lymph nodes noted. No crepitus CVS: Normal heart rate and rhythm. Pulses normal. Normal S1 and S2 Respiratory: No respiratory distress. Breath sounds normal. No Wheezing. No rales Abdomen: Soft and nontender. No rigidity. No distention. good BS x4 Skin: Skin warm and dry. Normal skin color. Normal skin turgor. Extremities: No lower extremity edema. Neurovascular intact to all extremities. No Lacerations. No Rash Neuro: Oriented X 3. No motor deficit. No sensory deficit. Moving all extermities. No slurred speech. Cranial nerves grossly intact <Luann Rubi MD - Last Filed: 03/03/21 01:00> Vital Signs: Last Vital Signs Temp 98.7 F 03/03/21 00:48 Pulse 73 03/03/21 00:48 Resp 16 03/03/21 00:48 BP 134/81 03/03/21 00:48 Pulse Ox 94 03/03/21 00:48 BMI result Body Mass Index 22.2 <LOVELY Bradford - Last Filed: 03/03/21 08:29> Course Reevaluation(s) Reevaluation #1: Physician observation continued. Patient is not in any distress. Patient's vital signs stable. Patient awaiting [facility] evaluation. Patient alert oriented x3 <LOVELY Bradford - Last Filed: 03/03/21 08:29> Time: 08:29 <LOVELY Bradford - Last Filed: 03/03/21 08:29> MDM - Psych MDM Narrative Medical decision making narrative: Will get crisis to evaluate patient <Luann Rubi MD - Last Filed: 03/03/21 01:00> Lab Data Result diagrams: : 03/03/21 01:15 03/03/21 01:15 <Luann Rubi MD - Last Filed: 03/03/21 01:00> Labs: Lab Results 03/03/21 03/03/21 03/03/21 Range/Units 00:57 00:57 00:57 WBC (4.8-10.8) X10*3/uL RBC (4.60-5.80) X10*6/uL Hgb (14.0-18.0) g/dl Hct (42.0-52.0) % MCV (80.0-98.0) fL MCH (27.0-33.0) pg MCHC (31.0-36.0) g/dl RDW (11.0-16.0) % Plt Count (160-400) X10*3/uL MPV (9.4-12.4) fL Immature Gran % (Auto) (0.0-0.4) % Neut % (Auto) (45-73) % Lymph % (Auto) (20-40) % [place] % (Auto) (2-11) % Eos % (Auto) (0-4) % Baso % (Auto) (0-2) % Lymph # (Auto) (1.2-4.9) X10*3/uL [place] # (Auto) (0.1-1.2) X10*3/uL Eos # (Auto) (0.0-0.4) X10*3/uL Baso # (Auto) (0.0-0.2) X10*3/uL Abs Immat Gran (auto) (0.00-0.03) X10*3/uL Absolute Neuts (auto) (2.0-8.3) x10*3/uL Absolute Nucleated RBC (0.0-0.012) X10*3/uL Nucleated RBC % (auto) (0.0-0.2) /100WBC Sodium (135-145) mmol/L Potassium (3.3-5.1) mmol/L Chloride (96-108) mmol/L Carbon Dioxide (22-29) mmol/L Anion Gap (12-20) BUN (9-16) mg/dL Creatinine (0.5-1.4) mg/dL Estim Creat Clear Calc Estimated GFR POC Glucose (60-115) mg/dL Random Glucose (60-115) mg/dL Calcium (8.4-10.2) mg/dL Total Bilirubin (0.0-1.0) mg/dL Direct Bilirubin (0.0-0.5) mg/dL AST (5-37) U/L ALT (0-40) U/L Alkaline Phosphatase (39-117) U/L Total Protein (6.5-8.0) g/dL Albumin (3.5-5.0) g/dL Urine Color YELLOW Urine Appearance CLEAR Urine pH 5.5 (5.0-8.0) Ur Specific [place] >= 1.030 H (1.005-1.025) Urine Protein NEG (NEG-TRACE) MG/DL Urine Glucose (UA) NEG (NEG) MG/DL Urine Ketones NEG (NEG) MG/DL Urine Blood TRACE (NEG) Urine Nitrite NEG (NEG) Ur Leukocyte Esterase NEG (NEG) Urine RBC 0-2 (0) /HPF Urine WBC 0-2 (0-4) /HPF Ur Squamous Epith Cells TRACE /LPF Amorphous Sediment TRACE /LPF Urine Bacteria NONE /LPF Urine Opiates Screen POSITIVE H (Not Detect) Urine Fentanyl Screen POSITIVE H (Not Detect) Ur Barbiturates Screen Not Detected (Not Detect) Ur Phencyclidine Scrn Not Detected (Not Detect) Ur Amphetamines Screen Not Detected (Not Detect) U Benzodiazepines Scrn Not Detected (Not Detect) Urine Cocaine Screen POSITIVE H (Not Detect) U Marijuana (THC) Screen Not Detected (Not Detect) Ethyl Alcohol mg/dL COVID-19 (NEETU) Negative (Negative) COVID-19 Clin Com See Note 03/03/21 03/03/21 03/03/21 Range/Units 01:15 01:15 01:15 WBC 6.8 (4.8-10.8) X10*3/uL RBC 4.90 (4.60-5.80) X10*6/uL Hgb 14.9 (14.0-18.0) g/dl Hct 44.7 (42.0-52.0) % MCV 91.2 (80.0-98.0) fL MCH 30.4 (27.0-33.0) pg MCHC 33.3 (31.0-36.0) g/dl RDW 15.7 (11.0-16.0) % Plt Count 159 L (160-400) X10*3/uL MPV 10.6 (9.4-12.4) fL Immature Gran % (Auto) 0.1 (0.0-0.4) % Neut % (Auto) 57.3 (45-73) % Lymph % (Auto) 27.2 (20-40) % [place] % (Auto) 13.7 H (2-11) % Eos % (Auto) 1.0 (0-4) % Baso % (Auto) 0.7 (0-2) % Lymph # (Auto) 1.9 (1.2-4.9) X10*3/uL [place] # (Auto) 0.9 (0.1-1.2) X10*3/uL Eos # (Auto) 0.1 (0.0-0.4) X10*3/uL Baso # (Auto) 0.1 (0.0-0.2) X10*3/uL Abs Immat Gran (auto) 0.01 (0.00-0.03) X10*3/uL Absolute Neuts (auto) 3.9 (2.0-8.3) x10*3/uL Absolute Nucleated RBC 0.000 (0.0-0.012) X10*3/uL Nucleated RBC % (auto) 0.0 (0.0-0.2) /100WBC Sodium 137 (135-145) mmol/L Potassium 4.4 (3.3-5.1) mmol/L Chloride 104 (96-108) mmol/L Carbon Dioxide 23 (22-29) mmol/L Anion Gap 14 (12-20) BUN 23 H (9-16) mg/dL Creatinine 0.96 (0.5-1.4) mg/dL Estim Creat Clear Calc 71.5 Estimated GFR > 60 POC Glucose (60-115) mg/dL Random Glucose 52 L* (60-115) mg/dL Calcium 9.7 (8.4-10.2) mg/dL Total Bilirubin 0.3 (0.0-1.0) mg/dL Direct Bilirubin < 0.2 (0.0-0.5) mg/dL AST 63 H (5-37) U/L ALT 32 (0-40) U/L Alkaline Phosphatase 116 (39-117) U/L Total Protein 8.6 H (6.5-8.0) g/dL Albumin 4.0 (3.5-5.0) g/dL Urine Color Urine Appearance Urine pH (5.0-8.0) Ur Specific [place] (1.005-1.025) Urine Protein (NEG-TRACE) MG/DL Urine Glucose (UA) (NEG) MG/DL Urine Ketones (NEG) MG/DL Urine Blood (NEG) Urine Nitrite (NEG) Ur Leukocyte Esterase (NEG) Urine RBC (0) /HPF Urine WBC (0-4) /HPF Ur Squamous Epith Cells /LPF Amorphous Sediment /LPF Urine Bacteria /LPF Urine Opiates Screen (Not Detect) Urine Fentanyl Screen (Not Detect) Ur Barbiturates Screen (Not Detect) Ur Phencyclidine Scrn (Not Detect) Ur Amphetamines Screen (Not Detect) U Benzodiazepines Scrn (Not Detect) Urine Cocaine Screen (Not Detect) U Marijuana (THC) Screen (Not Detect) Ethyl Alcohol < 10 mg/dL COVID-19 (NEETU) (Negative) COVID-19 Clin Com 03/03/21 03/03/21 Range/Units 02:02 05:53 WBC (4.8-10.8) X10*3/uL RBC (4.60-5.80) X10*6/uL Hgb (14.0-18.0) g/dl Hct (42.0-52.0) % MCV (80.0-98.0) fL MCH (27.0-33.0) pg MCHC (31.0-36.0) g/dl RDW (11.0-16.0) % Plt Count (160-400) X10*3/uL MPV (9.4-12.4) fL Immature Gran % (Auto) (0.0-0.4) % Neut % (Auto) (45-73) % Lymph % (Auto) (20-40) % [place] % (Auto) (2-11) % Eos % (Auto) (0-4) % Baso % (Auto) (0-2) % Lymph # (Auto) (1.2-4.9) X10*3/uL [place] # (Auto) (0.1-1.2) X10*3/uL Eos # (Auto) (0.0-0.4) X10*3/uL Baso # (Auto) (0.0-0.2) X10*3/uL Abs Immat Gran (auto) (0.00-0.03) X10*3/uL Absolute Neuts (auto) (2.0-8.3) x10*3/uL Absolute Nucleated RBC (0.0-0.012) X10*3/uL Nucleated RBC % (auto) (0.0-0.2) /100WBC Sodium (135-145) mmol/L Potassium (3.3-5.1) mmol/L Chloride (96-108) mmol/L Carbon Dioxide (22-29) mmol/L Anion Gap (12-20) BUN (9-16) mg/dL Creatinine (0.5-1.4) mg/dL Estim Creat Clear Calc Estimated GFR POC Glucose 217 H 112 (60-115) mg/dL Random Glucose (60-115) mg/dL Calcium (8.4-10.2) mg/dL Total Bilirubin (0.0-1.0) mg/dL Direct Bilirubin (0.0-0.5) mg/dL AST (5-37) U/L ALT (0-40) U/L Alkaline Phosphatase (39-117) U/L Total Protein (6.5-8.0) g/dL Albumin (3.5-5.0) g/dL Urine Color Urine Appearance Urine pH (5.0-8.0) Ur Specific [place] (1.005-1.025) Urine Protein (NEG-TRACE) MG/DL Urine Glucose (UA) (NEG) MG/DL Urine Ketones (NEG) MG/DL Urine Blood (NEG) Urine Nitrite (NEG) Ur Leukocyte Esterase (NEG) Urine RBC (0) /HPF Urine WBC (0-4) /HPF Ur Squamous Epith Cells /LPF Amorphous Sediment /LPF Urine Bacteria /LPF Urine Opiates Screen (Not Detect) Urine Fentanyl Screen (Not Detect) Ur Barbiturates Screen (Not Detect) Ur Phencyclidine Scrn (Not Detect) Ur Amphetamines Screen (Not Detect) U Benzodiazepines Scrn (Not Detect) Urine Cocaine Screen (Not Detect) U Marijuana (THC) Screen (Not Detect) Ethyl Alcohol mg/dL COVID-19 (NEETU) (Negative) COVID-19 Clin Com <Luann Rubi MD - Last Filed: 01/18/22 01:00> Lab Results 03/03/21 03/03/21 03/03/21 Range/Units 00:57 00:57 00:57 WBC (4.8-10.8) X10*3/uL RBC (4.60-5.80) X10*6/uL Hgb (14.0-18.0) g/dl Hct (42.0-52.0) % MCV (80.0-98.0) fL MCH (27.0-33.0) pg MCHC (31.0-36.0) g/dl RDW (11.0-16.0) % Plt Count (160-400) X10*3/uL MPV (9.4-12.4) fL Immature Gran % (Auto) (0.0-0.4) % Neut % (Auto) (45-73) % Lymph % (Auto) (20-40) % [place] % (Auto) (2-11) % Eos % (Auto) (0-4) % Baso % (Auto) (0-2) % Lymph # (Auto) (1.2-4.9) X10*3/uL [place] # (Auto) (0.1-1.2) X10*3/uL Eos # (Auto) (0.0-0.4) X10*3/uL Baso # (Auto) (0.0-0.2) X10*3/uL Abs Immat Gran (auto) (0.00-0.03) X10*3/uL Absolute Neuts (auto) (2.0-8.3) x10*3/uL Absolute Nucleated RBC (0.0-0.012) X10*3/uL Nucleated RBC % (auto) (0.0-0.2) /100WBC Sodium (135-145) mmol/L Potassium (3.3-5.1) mmol/L Chloride (96-108) mmol/L Carbon Dioxide (22-29) mmol/L Anion Gap (12-20) BUN (9-16) mg/dL Creatinine (0.5-1.4) mg/dL Estim Creat Clear Calc Estimated GFR POC Glucose (60-115) mg/dL Random Glucose (60-115) mg/dL Calcium (8.4-10.2) mg/dL Total Bilirubin (0.0-1.0) mg/dL Direct Bilirubin (0.0-0.5) mg/dL AST (5-37) U/L ALT (0-40) U/L Alkaline Phosphatase (39-117) U/L Total Protein (6.5-8.0) g/dL Albumin (3.5-5.0) g/dL Urine Color YELLOW Urine Appearance CLEAR Urine pH 5.5 (5.0-8.0) Ur Specific [place] >= 1.030 H (1.005-1.025) Urine Protein NEG (NEG-TRACE) MG/DL Urine Glucose (UA) NEG (NEG) MG/DL Urine Ketones NEG (NEG) MG/DL Urine Blood TRACE (NEG) Urine Nitrite NEG (NEG) Ur Leukocyte Esterase NEG (NEG) Urine RBC 0-2 (0) /HPF Urine WBC 0-2 (0-4) /HPF Ur Squamous Epith Cells TRACE /LPF Amorphous Sediment TRACE /LPF Urine Bacteria NONE /LPF Urine Opiates Screen POSITIVE H (Not Detect) Urine Fentanyl Screen POSITIVE H (Not Detect) Ur Barbiturates Screen Not Detected (Not Detect) Ur Phencyclidine Scrn Not Detected (Not Detect) Ur Amphetamines Screen Not Detected (Not Detect) U Benzodiazepines Scrn Not Detected (Not Detect) Urine Cocaine Screen POSITIVE H (Not Detect) U Marijuana (THC) Screen Not Detected (Not Detect) Ethyl Alcohol mg/dL COVID-19 (NEETU) Negative (Negative) COVID-19 Clin Com See Note 03/03/21 03/03/21 03/03/21 Range/Units 01:15 01:15 01:15 WBC 6.8 (4.8-10.8) X10*3/uL RBC 4.90 (4.60-5.80) X10*6/uL Hgb 14.9 (14.0-18.0) g/dl Hct 44.7 (42.0-52.0) % MCV 91.2 (80.0-98.0) fL MCH 30.4 (27.0-33.0) pg MCHC 33.3 (31.0-36.0) g/dl RDW 15.7 (11.0-16.0) % Plt Count 159 L (160-400) X10*3/uL MPV 10.6 (9.4-12.4) fL Immature Gran % (Auto) 0.1 (0.0-0.4) % Neut % (Auto) 57.3 (45-73) % Lymph % (Auto) 27.2 (20-40) % [place] % (Auto) 13.7 H (2-11) % Eos % (Auto) 1.0 (0-4) % Baso % (Auto) 0.7 (0-2) % Lymph # (Auto) 1.9 (1.2-4.9) X10*3/uL [place] # (Auto) 0.9 (0.1-1.2) X10*3/uL Eos # (Auto) 0.1 (0.0-0.4) X10*3/uL Baso # (Auto) 0.1 (0.0-0.2) X10*3/uL Abs Immat Gran (auto) 0.01 (0.00-0.03) X10*3/uL Absolute Neuts (auto) 3.9 (2.0-8.3) x10*3/uL Absolute Nucleated RBC 0.000 (0.0-0.012) X10*3/uL Nucleated RBC % (auto) 0.0 (0.0-0.2) /100WBC Sodium 137 (135-145) mmol/L Potassium 4.4 (3.3-5.1) mmol/L Chloride 104 (96-108) mmol/L Carbon Dioxide 23 (22-29) mmol/L Anion Gap 14 (12-20) BUN 23 H (9-16) mg/dL Creatinine 0.96 (0.5-1.4) mg/dL Estim Creat Clear Calc 71.5 Estimated GFR > 60 POC Glucose (60-115) mg/dL Random Glucose 52 L* (60-115) mg/dL Calcium 9.7 (8.4-10.2) mg/dL Total Bilirubin 0.3 (0.0-1.0) mg/dL Direct Bilirubin < 0.2 (0.0-0.5) mg/dL AST 63 H (5-37) U/L ALT 32 (0-40) U/L Alkaline Phosphatase 116 (39-117) U/L Total Protein 8.6 H (6.5-8.0) g/dL Albumin 4.0 (3.5-5.0) g/dL Urine Color Urine Appearance Urine pH (5.0-8.0) Ur Specific [place] (1.005-1.025) Urine Protein (NEG-TRACE) MG/DL Urine Glucose (UA) (NEG) MG/DL Urine Ketones (NEG) MG/DL Urine Blood (NEG) Urine Nitrite (NEG) Ur Leukocyte Esterase (NEG) Urine RBC (0) /HPF Urine WBC (0-4) /HPF Ur Squamous Epith Cells /LPF Amorphous Sediment /LPF Urine Bacteria /LPF Urine Opiates Screen (Not Detect) Urine Fentanyl Screen (Not Detect) Ur Barbiturates Screen (Not Detect) Ur Phencyclidine Scrn (Not Detect) Ur Amphetamines Screen (Not Detect) U Benzodiazepines Scrn (Not Detect) Urine Cocaine Screen (Not Detect) U Marijuana (THC) Screen (Not Detect) Ethyl Alcohol < 10 mg/dL COVID-19 (NEETU) (Negative) COVID-19 Clin Com 03/03/21 03/03/21 Range/Units 02:02 05:53 WBC (4.8-10.8) X10*3/uL RBC (4.60-5.80) X10*6/uL Hgb (14.0-18.0) g/dl Hct (42.0-52.0) % MCV (80.0-98.0) fL MCH (27.0-33.0) pg MCHC (31.0-36.0) g/dl RDW (11.0-16.0) % Plt Count (160-400) X10*3/uL MPV (9.4-12.4) fL Immature Gran % (Auto) (0.0-0.4) % Neut % (Auto) (45-73) % Lymph % (Auto) (20-40) % [place] % (Auto) (2-11) % Eos % (Auto) (0-4) % Baso % (Auto) (0-2) % Lymph # (Auto) (1.2-4.9) X10*3/uL [place] # (Auto) (0.1-1.2) X10*3/uL Eos # (Auto) (0.0-0.4) X10*3/uL Baso # (Auto) (0.0-0.2) X10*3/uL Abs Immat Gran (auto) (0.00-0.03) X10*3/uL Absolute Neuts (auto) (2.0-8.3) x10*3/uL Absolute Nucleated RBC (0.0-0.012) X10*3/uL Nucleated RBC % (auto) (0.0-0.2) /100WBC Sodium (135-145) mmol/L Potassium (3.3-5.1) mmol/L Chloride (96-108) mmol/L Carbon Dioxide (22-29) mmol/L Anion Gap (12-20) BUN (9-16) mg/dL Creatinine (0.5-1.4) mg/dL Estim Creat Clear Calc Estimated GFR POC Glucose 217 H 112 (60-115) mg/dL Random Glucose (60-115) mg/dL Calcium (8.4-10.2) mg/dL Total Bilirubin (0.0-1.0) mg/dL Direct Bilirubin (0.0-0.5) mg/dL AST (5-37) U/L ALT (0-40) U/L Alkaline Phosphatase (39-117) U/L Total Protein (6.5-8.0) g/dL Albumin (3.5-5.0) g/dL Urine Color Urine Appearance Urine pH (5.0-8.0) Ur Specific [place] (1.005-1.025) Urine Protein (NEG-TRACE) MG/DL Urine Glucose (UA) (NEG) MG/DL Urine Ketones (NEG) MG/DL Urine Blood (NEG) Urine Nitrite (NEG) Ur Leukocyte Esterase (NEG) Urine RBC (0) /HPF Urine WBC (0-4) /HPF Ur Squamous Epith Cells /LPF Amorphous Sediment /LPF Urine Bacteria /LPF Urine Opiates Screen (Not Detect) Urine Fentanyl Screen (Not Detect) Ur Barbiturates Screen (Not Detect) Ur Phencyclidine Scrn (Not Detect) Ur Amphetamines Screen (Not Detect) U Benzodiazepines Scrn (Not Detect) Urine Cocaine Screen (Not Detect) U Marijuana (THC) Screen (Not Detect) Ethyl Alcohol mg/dL COVID-19 (NEETU) (Negative) COVID-19 Clin Com <LOVELY Bradford - Last Filed: 03/03/21 08:29> Discharge Plan Discharge Clinical Impression: Polysubstance (including opioids) dependence, daily use <Luann Rubi MD - Last Filed: 03/03/21 01:00> Patient Disposition: Still a Patient <Luann Rubi MD - Last Filed: 03/03/21 01:00> Prescriptions: No Action nicotine 21 mg/24 hr Patch 24 Hour 21 mg transdermal DAILY 30 Days Qty: 28 RF: 0 albuterol sulfate [Ventolin HFA] 90 mcg/actuation Hfa Aerosol Inhaler 2 puff inhalation Q4H PRN (Reason: Shortness Of Breath) 30 Days Qty: 6.7 RF: 0 Biktarvy 50-200-25 mg Tablet 1 tab PO BEDTIME 30 Days Qty: 30 RF: 0 benztropine 1 mg Tablet 1 mg PO BEDTIME 30 Days Qty: 30 RF: 0 mirtazapine 7.5 mg Tablet 7.5 mg PO BEDTIME 30 Days Qty: 30 RF: 0 quetiapine 200 mg Tablet 200 mg PO BEDTIME 30 Days Qty: 30 RF: 0 sertraline 25 mg Tablet 75 mg PO DAILY 30 Days Qty: 90 RF: 0 cyanocobalamin (vitamin B-12) 500 mcg Tablet 500 mcg PO DAILY 30 Days Qty: 30 RF: 0 buprenorphine-naloxone [Suboxone] 8-2 mg Film 1 film sublingual BEDTIME 1 Days Qty: 1 RF: 0 buprenorphine-naloxone [Suboxone] 12-3 mg Film 1 film sublingual DAILY 1 Days Qty: 1 RF: 0 <Luann Rubi MD - Last Filed: 03/03/21 01:00>
[2021-03-03 00:48] VITALS: BP 134/81; PULSE 73; RESP 16; TEMP 37.1; O2SAT 94; BMI 22.2
[2021-03-03 01:19] LABS: Amphetamine Screen Urine Not Detected (Not Detect); Barbiturates, Urine Not Detected (Not Detect); Benzodiazepines Screen Urine Not Detected (Not Detect); COVID-19 Test Negative (Negative); Cannabinoid Screen Urine Not Detected (Not Detect); Cocaine Screen Urine POSITIVE (Not Detect); Fentanyl, urine POSITIVE (Not Detect); IDNOW Serial# 9DD0AD1C; Opiate Screen Urine POSITIVE (Not Detect); Phencyclidine Screen Urine Not Detected (Not Detect)
[2021-03-03 01:22] LABS: Appearance Urine CLEAR; Color Urine YELLOW; Glucose Urine UA NEG (NEG); Leukocyte Esterase Urine NEG (NEG); Nitrite Urine NEG (NEG); PH 5.5 (5.0-8.0); Specific Gravity - Urine >= 1.030 (1.005-1.025); Urine Blood TRACE (NEG); Urine Ketones NEG (NEG); Urine Protein NEG (NEG-TRACE)
[2021-03-03 01:37] LABS: MANUAL DIFF FLAG NO
[2021-03-03 01:39] LABS: Basophils Absolute Auto 0.1 X10*3/uL (0.0-0.2); Basophils Percent Auto 0.7 % (0-2); Eosinophils Absolute Auto 0.1 X10*3/uL (0.0-0.4); Hematocrit 44.7 % (42.0-52.0); Hemoglobin 14.9 g/dl (14.0-18.0); Imm Gran Abs Auto 0.01 X10*3/uL (0.00-0.03); Imm Gran Pct Auto 0.1 % (0.0-0.4); Lymphocytes Absolute Auto 1.9 X10*3/uL (1.2-4.9); Lymphocytes Percent Auto 27.2 % (20-40); Mean Corpuscular HGB Conc 33.3 g/dl (31.0-36.0); Mean Corpuscular Hemoglobin 30.4 pg (27.0-33.0); Mean Corpuscular Volume 91.2 fL (80.0-98.0); Mean Platelet Volume 10.6 fL (9.4-12.4); Monocytes Absolute Auto 0.9 X10*3/uL (0.1-1.2); Monocytes Percent Auto 13.7 % (2-11); Neutrophils Absolute Auto 3.9 x10*3/uL (2.0-8.3); Neutrophils Percent Auto 57.3 % (45-73); Platelet Count 159 X10*3/uL (160-400); Red Cell Distribution Width 15.7 % (11.0-16.0); White Blood Count 6.8 X10*3/uL (4.8-10.8)
[2021-03-03 01:42] LABS: RBC Urine 0-2 /HPF (0); Squamous Epithelial Cell Urine TRACE /LPF; WBC Urine 0-2 /HPF (0-4)
[2021-03-03 01:43] LABS: Amorphous Sediment Urine TRACE /LPF
[2021-03-03 01:53] LABS: Ethanol < 10 mg/dL
[2021-03-03 01:57] LABS: Alanine Aminotransferase 32 U/L (0-40); Alkaline Phosphatase 116 U/L (39-117); Anion Gap 14 (12-20); Aspartate Amino Transferase 63 U/L (5-37); Bilirubin Direct < 0.2 mg/dL (0.0-0.5); Bilirubin Total 0.3 mg/dL (0.0-1.0); Blood Urea Nitrogen 23 mg/dL (9-16); Calcium 9.7 mg/dL (8.4-10.2); Carbon Dioxide 23 mmol/L (22-29); Chloride 104 mmol/L (96-108); Creatinine Clr Calc Pharmacy 71.5; Estimated Glomerular Filt Rate > 60; Glucose Random 52 mg/dL (60-115); Potassium 4.4 mmol/L (3.3-5.1); Sodium 137 mmol/L (135-145); Total Protein 8.6 g/dL (6.5-8.0)
[2021-03-03 02:07] LABS: Glucose, Whole Blood 217 mg/dL (60-115)
[2021-03-03 05:58] LABS: Glucose, Whole Blood 112 mg/dL (60-115)
--- NOTE | 2021-03-03 06:20 | PC.NURSE ---
Patient slept through the night, no distress observed/reported, POC at 0553 was 112, behavior at baseline non-concerning, patient had been off his medication for months, [facility] referral completed/confirmed, pending evaluation in the morning, VSS, will continue to monitor.
--- NOTE | 2021-03-03 07:20 | PC.NURSE ---
patient appears to remain asleep at present respirations are even and unlabored patient appears in no distress
[2021-03-03 09:19] VITALS: BP 120/76; PULSE 75; RESP 18; TEMP 36.6; O2SAT 96
[2021-03-03] MEDS: Buprenorphine/Naloxone 8/2 mg FILM 1 FILM SUBLINGUAL ×2 (17:07→22:46)
[2021-03-03 23:33] VITALS: BP 105/59; PULSE 77; RESP 20; TEMP 36.3; O2SAT 99
--- NOTE | 2021-03-04 05:31 | PC.NURSE ---
Patient slept through the night, no distress observed/reported, behavior non concerning at this time, patient is currently on suboxone only, patient's disposition per [facility] is voluntary inpatient bed search, VSS, will continue to monitor.
--- NOTE | 2021-03-04 07:13 | PC.NURSE ---
patient appears to remain at rest at present respirations are even and unlabored, patient appears in no distress
--- NOTE | 2021-03-04 08:33 | MHC.CARE ---
CARE Team takes a call from Mr. Rodolfo Swanson, [facility] [employer].? Mr. Swanson wanted to make this organization aware that they have a policy against Suboxone being brought into the [facility].? Mr. Swanson stated that pt would likely be better off on methodone maintenance.? Mr. Swanson stated that he believes that pt is selling his suboxone on the streets and purchasing illegal street drugs with the proceeds. He asks that we supply the rest home with a copy of the discharge paperwork when pt is discharged as well as forwarding his presrcriptions to the rest home?s pharmacy which delivers them to the rest home. [facility] Phone - [phone] Fax - [phone] Mr. Swanson can be contacted if needed at:? [phone]
[2021-03-04] MEDS: Buprenorphine/Naloxone 8/2 mg FILM 1 FILM SUBLINGUAL (08:50)
--- NOTE | 2021-03-04 11:28 | MHC.CARE ---
CARE Team speaks with pt this morning upon his request.? Pt expressed a desire to leave as he has an appointment with his ?Nurse? and a dental appointment this afternoon at 3:00PM at [facility].? Pt denies any AVH, HI, SI and .? No thoughts of self-harm.? Pt stated he feels he can safely be discharged and was able to verbally contract for safety. CARE Team contacted pt?s sister and guardian Ms. Tamy Shepard who stated that if pt wanted to leave he should be allowed to do so.? Ms. Shepard expressed that she had no concerns for his safety should he be discharged.? Ms. Shepard was unable to confirm whether or not he had appointments. CARE Team left a message for Brittani Barrera, pt?s telehealth case manager.? Ms. Barrera has not yet returned the call. CARE Team contacted [facility] to confirm if pt had a dental appointment and/or some other medical appointment.? [facility] confirmed a dental appointment at 1500 today and that he had a medical appointment at 0930.? [facility] was advised that pt missed the appointment due to his being here and asked that they be flexible with rescheduling his appointment. The plan is for pt to be discharged.? Discharge will occur at 1430 today.? CARE Team has scheduled a Lyft to [facility] so pt can make his appointment for 1500.? This disposition was discussed with and agreed upon by CARE phlebotomy program coordinator Mayte INGRAM, Ed provider September, and pt?s nurse NORMA Hilton.
[2021-03-04 11:36] VITALS: BP 106/67; PULSE 83; RESP 16; TEMP 36.4; O2SAT 99
== END 2021-03-04 18:27 | disposition home or self-care (01) ==
PROVIDERS: Emergency Provider Emergency Medicine Emergency Medical Services
DX: F19.20 Other psychoactive substance dependence, uncomplicated (principal); F11.20 Opioid dependence, uncomplicated; F14.20 Cocaine dependence, uncomplicated; R45.851 Suicidal ideations; Z20.822 Contact with and (suspected) exposure to COVID-19; B20 Human immunodeficiency virus [HIV] disease; B19.20 Unspecified viral hepatitis C without hepatic coma; F25.9 Schizoaffective disorder, unspecified; F17.200 Nicotine dependence, unspecified, uncomplicated; Z79.899 Other long term (current) drug therapy
CPT/HCPCS: 36415; 70450; 72125; 80048; 80076; 80307; 81001; 82077; 82947; 85025; 87635; 93005; 99284; 99285

== ENCOUNTER 2021-03-04 22:18 | Emergency (ER) | payer MEDICAID, SELFPAY ==
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
[2021-03-04 22:27] VITALS: BP 132/88; PULSE 58; O2SAT 95
[2021-03-04 23:02] VITALS: BP 110/67; PULSE 102; RESP 18; TEMP 37.1; O2SAT 97; BMI 21.9
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
[2021-03-04] MEDS: cephALEXin 500 MG CAPSULE PO (23:16)
--- NOTE | 2021-03-04 23:24 | ECG_ITS ---
Test Reason : ED Blood Pressure : / mmHG Vent. Rate : 090 BPM Atrial Rate : 090 BPM P-R Int : 226 ms QRS Dur : 090 ms QT Int : 346 ms P-R-T Axes : 060 072 054 degrees QTc Int : 423 ms Sinus rhythm with 1st degree A-V block Otherwise normal ECG When compared with ECG of 28-JAN-2021 14:51, No significant change was found Referred By: Yana Lima Electronically Signed By:Sudheer Lyon
[2021-03-04 23:58] LABS: COVID-19 Test Negative (Negative); IDNOW Serial# 9DD0AD1C
[2021-03-05] LABS: Amphetamine Screen Urine Not Detected (Not Detect); Barbiturates, Urine Not Detected (Not Detect); Benzodiazepines Screen Urine Not Detected (Not Detect); Cannabinoid Screen Urine Not Detected (Not Detect); Cocaine Screen Urine POSITIVE (Not Detect); Fentanyl, urine POSITIVE (Not Detect); Opiate Screen Urine POSITIVE (Not Detect); Phencyclidine Screen Urine Not Detected (Not Detect)
--- NOTE | 2021-03-05 00:12 | PC.NURSE ---
pt taken to ct and has returned. pt is rocking back and forth in the bed holding his head.
--- NOTE | 2021-03-05 01:47 | PC.NURSE ---
pt medication rec will be done when pt is able to give the information when not high on his gil.
--- NOTE | 2021-03-05 04:33 | PC.NURSE ---
smart sheet sent received and verified.
[2021-03-05 04:41] LABS: Ethanol < 10 mg/dL
[2021-03-05] MEDS: cephALEXin 500 MG CAPSULE PO ×2 (06:22→12:16)
[2021-03-05 08:17] VITALS: BP 111/77; PULSE 77; RESP 18; TEMP 37.2; O2SAT 97
--- NOTE | 2021-03-05 09:01 | PC.NURSE ---
[facility] ([facility]) at bedside, pt aware of plan of care.
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
[2021-03-05 11:32] VITALS: BP 100/59; PULSE 76; RESP 16; O2SAT 97
--- NOTE | 2021-03-05 11:37 | PHA.MEDREC ---
Pharmacy Consult ? Medication Reconciliation Pharmacy has completed the medication reconciliation. Patient could not report which medications he takes but suboxone. [facility] Pharmacy Fills suboxone. All other medications are filled by [facility] who blister packs the medications. Dot Booth ,PharmD
[2021-03-05] MEDS: Aspirin Enteric Coated 81 MG TABLET.DR PO (13:40)
[2021-03-05] MEDS: Sertraline HCL 50 MG TABLET PO (13:40)
[2021-03-05] MEDS: Buprenorphine/Naloxone 8/2 mg FILM 1 FILM SUBLINGUAL (13:40)
[2021-03-05] MEDS: Isosorbide Mononitrate 30 MG TAB.ER.24H PO (13:57)
[2021-03-05] MEDS: Clopidogrel Bisulfate 75 MG TABLET PO (13:57)
[2021-03-05] MEDS: Acetaminophen 325 MG TABLET 650 MG PO (14:22)
== END 2021-03-05 14:38 | disposition home or self-care (01) ==
PROVIDERS: Emergency Provider Emergency Medicine Emergency Medical Services
DX: T40.1X2A Poisoning by heroin, intentional self-harm, initial encounter (principal); T40.5X1A Poisoning by cocaine, accidental (unintentional), initial encounter; G44.40 Drug-induced headache, not elsewhere classified, not intractable; R45.851 Suicidal ideations; R21 Rash and other nonspecific skin eruption; G44.309 Post-traumatic headache, unspecified, not intractable; F11.20 Opioid dependence, uncomplicated; M54.2 Cervicalgia; Y92.9 Unspecified place or not applicable; Z20.822 Contact with and (suspected) exposure to COVID-19; F17.210 Nicotine dependence, cigarettes, uncomplicated; Z71.6 Tobacco abuse counseling; Z79.899 Other long term (current) drug therapy
CPT/HCPCS: 70450; 72125; 80307; 82077; 87635; 93005; 99284; 99285

== ENCOUNTER 2021-03-18 14:41 | Emergency (ER) | payer MEDICAID, SELFPAY ==
[2021-03-18 14:45] VITALS: RESP 16; TEMP 36.2; BMI 21.5
--- NOTE | 2021-03-18 14:52 | PC.NURSE ---
PT HAVING DIFFICULTY MAINTAINING RESP/O2 SAT IN TRIAGE, SLOW TO RESPOND, PT GIVEN 4MG NASAL NARCAN W/GOOD EFFECT. PT PLACED ON 2L VIA NC
== END 2021-03-18 16:28 | disposition left against medical advice (07) ==
PROVIDERS: Emergency Provider Emergency Medicine
DX: R42 Dizziness and giddiness (principal); F11.10 Opioid abuse, uncomplicated; F14.10 Cocaine abuse, uncomplicated
CPT/HCPCS: 99281; 99282

== ENCOUNTER 2021-03-29 05:44 | Emergency (ER) | payer MEDICAID, SELFPAY ==
[2021-03-29 05:47] VITALS: BP 138/79; PULSE 67; RESP 16; TEMP 36.1; O2SAT 98; BMI 21.5
--- NOTE | 2021-03-29 06:00 | ED_ITS ---
HPI - Psych General Chief Complaint: Weakness Stated Complaint: general pain Time Seen by Provider: 03/29/21 06:00 Source: patient Mode of arrival: EMS Limitations: no limitations History of Present Illness HPI Narrative: 60-year-old male who presents emergency department for evaluation depression and suicidal ideation. The patient told me that cannot take it anymore. He states that he thinks about killing himself every day. He states that he has a plan to jump in front of a car to kill himself. He states that he tried this 2 days ago. He denies using drugs and he states he has not used drugs in 10 years, however patient has been seen here frequently and his urine tox screen is always positive for opiates, fentanyl, cocaine with his last positive urine tox screen on 03/04/2021. He states that he lives in a retirement and he gets his medications dispense with the retirement. Patient states he is HIV positive and hepatitis-C positive. Related Data Home Medications Medication Instructions Recorded Confirmed buprenorphine 8 mg-naloxone 2 mg 1 strip SUBLINGUAL BID 03/03/21 03/05/21 sublingual film (Suboxone) aspirin 81 mg tablet,delayed 81 mg PO DAILY 03/05/21 03/05/21 release clopidogrel 75 mg tablet (Plavix) 75 mg PO DAILY 03/05/21 03/05/21 isosorbide mononitrate 30 mg 30 mg PO DAILY 03/05/21 03/05/21 tablet,extended release 24 hr mirtazapine 15 mg tablet 15 mg PO BEDTIME 03/05/21 03/05/21 nitroglycerin 0.4 mg sublingual 0.4 mg SUBLINGUAL Q5M PRN 03/05/21 03/05/21 tablet quetiapine 200 mg tablet (Seroquel) 200 mg PO BEDTIME 03/05/21 03/05/21 sertraline 50 mg tablet 50 mg PO DAILY 03/05/21 03/05/21 trazodone 50 mg tablet 50 mg PO BEDTIME PRN 03/05/21 03/05/21 Previous Rx's Medication Instructions Recorded albuterol sulfate 90 mcg/actuation 2 puff INHALATION Q4H PRN 30 Days 10/27/20 aerosol inhaler (Ventolin HFA) #6.7 g benztropine 1 mg tablet 1 mg PO BEDTIME 30 Days #30 tab 10/27/20 bictegravir 50 mg-emtricitabine 1 tab PO BEDTIME 30 Days #30 tab 10/27/20 200 mg-tenofovir alafenam 25 mg tablet (Biktarvy) cyanocobalamin (vitamin B-12) 500 500 mcg PO DAILY 30 Days #30 tab 10/27/20 mcg tablet mirtazapine 7.5 mg tablet 7.5 mg PO BEDTIME 30 Days #30 tab 10/27/20 Allergies Allergy/AdvReac Type Severity Reaction Status Date / Time No Known Allergies Allergy Mild NO REACTION Verified 06/01/20 20:45 Review of Systems Review of Systems: Yes all other systems are reviewed and are negative [facility] Past Medical History [facility] Narrative: Social history: The patient lives in a retirement. He states that he smokes 1/2 pack of cigarettes per day times 30-40 years. He denies alcohol use. He did night drug use as well however patient has been seen here frequently and urine tox screen is always positive for opiates, fentanyl, cocaine. Medical History AIDS Asthma Cocaine use disorder, severe, dependence Depression Hepatitis C HIV (human immunodeficiency virus infection) Opioid dependence Opioid use disorder, severe, in early remission, on maintenance therapy, dependence Schizoaffective disorder Tardive dyskinesia Social History Social History Household Members: Other Household Members Other:: Patient resides in retirement. Housing: Other Housing Other:: Prison [facility] Home Unable to assess alcohol history related to: Unknown Alcohol intake: unknown Patient Tobacco Use Status: Current everyday Tobacco user Tobacco use type: Cigarette Cigarette Packs Per Day: 0.5 Cigarettes Per Day: 10.0 Years Smoked: 40 e-Cigarette/Vaping Use: Former Use Second Hand Smoke Exposure: No Substance Use Type: Opiates Advance Directives: Yes Advance Directives on File: Yes Advance Directives Date on File: 01/29/20 service: No Sexual orientation: Straight/Heterosexual Physical Exam Vital Signs: Vital Signs: Last Vital Signs Temp 97 F 03/29/21 05:47 Pulse 67 03/29/21 05:47 Resp 16 03/29/21 05:47 BP 138/79 03/29/21 05:47 Pulse Ox 98 03/29/21 05:47 BMI result Body Mass Index 21.5 Const: Other: Awake, alert, male patient, very soft-spoken but comprehensible speech, answers all questions appropriately, HENMT: Head: Yes normal to inspection, Yes normocephalic and Yes atraumatic Ears: external ears normal General nose exam: Normal external nose present Face and sinus: Yes normal facial exam Mouth: Normal oral and palatal mucosa present Throat: Yes posterior oropharynx normal Eyes: General: appearance normal, both eyes and all related structures Pupils: Equal, round and reactive pupils present Neck: Neck: Yes normal visual inspection, Yes no lymphadenopathy, Yes trachea midline and Yes supple Chest: Chest palpation & inspection: normal inspection of the chest and normal palpation of entire chest wall Resp: Effort & Inspection: normal respiratory effort and able to speak in complete sentences Auscultation: clear to auscultation bilaterally Cardio: Rate: regular rate Rhythm: regular rhythm Heart sounds: S1 normal heart sound present, S2 normal heart sound present and no murmurs GI: Inspection: Yes normal to inspection Palpation (GI): Soft to palpation, nontender and no guarding Auscultation: normal bowel sounds : General: Yes no CVA tenderness Back/Spine/Pelvis: Back: no CVA tenderness Skin: General skin exam: no rashes or lesions noted Neuro: Cranial nerves: Yes CN's II-XII intact bilaterally and Yes Equal, round and reactive pupils present Cognition (Neuro): normal cognition Motor exam (neuro): 5/5 motor strength present throughout Extrem: General: Yes normal to inspection Psych: Appearance: grossly normal Speech and movement: Normal speech and movement present Affect: normal affect Attitude: cooperative Thought process: Normal thought process present Thought content: Suicidality present and no homicidality Course Course Course Narrative: 60-year-old male who presents emergency department for evaluation of suicidal ideation with a plan to jump in front of a car. He states that he jumped in front of a car 2 days prior but did not get seriously injured. The patient denies using drugs however he has had positive urine tox screens almost every time that he presents emergency department with his last presentation on 03/04/2021. Vital signs were normal and his physical examination was unremarkable. I ordered a CBC, CMP, COVID-19 test, urine tox screen, ethanol level. The patient is medically cleared to be seen by Behavioral Health. [facility] - Psych Lab Data Result diagrams: 03/29/21 06:13 03/29/21 06:13 Labs: Lab Results 03/29/21 03/29/21 03/29/21 Range/Units 06:13 06:13 06:13 WBC 7.7 (4.8-10.8) X10*3/uL RBC 4.51 L (4.60-5.80) X10*6/uL Hgb 13.8 L (14.0-18.0) g/dl Hct 41.0 L (42.0-52.0) % MCV 90.9 (80.0-98.0) fL MCH 30.6 (27.0-33.0) pg MCHC 33.7 (31.0-36.0) g/dl RDW 14.8 (11.0-16.0) % Plt Count 165 (160-400) X10*3/uL MPV 10.2 (9.4-12.4) fL Immature Gran % (Auto) Cancelled Neut % (Auto) Cancelled Lymph % (Auto) Cancelled [place] % (Auto) Cancelled Eos % (Auto) Cancelled Baso % (Auto) Cancelled Lymph # (Auto) Cancelled [place] # (Auto) Cancelled Eos # (Auto) Cancelled Baso # (Auto) Cancelled Abs Immat Gran (auto) Cancelled Absolute Neuts (auto) Cancelled Absolute Nucleated RBC 0.000 (0.0-0.012) X10*3/uL Nucleated RBC % (auto) 0.0 (0.0-0.2) /100WBC Neutrophils % (Manual) 70 (45-73) % Band Neutrophils % 2 L (3-5) % Lymphocytes % (Manual) 16 L (20-40) % Monocytes % (Manual) 10 (2-11) % Basophils % (Manual) 2 (0-2) % Abs Neuts (Manual) 5.5 (2.0-8.3) X10*3/uL Lymphocytes # (Manual) 1.2 (1.2-4.9) X10*3/uL Monocytes # (Manual) 0.8 (0.1-1.2) X10*3/uL Basophils # (Manual) 0.2 (0.0-0.2) X10*3/uL Smudge Cells PRESENT Platelet Estimate SLIGHTLY DECREASED (NORMAL) Large Platelets PRESENT Plt Morphology Comment NORMAL RBC Morphology NORMAL Sodium 138 (135-145) mmol/L Potassium 4.0 (3.3-5.1) mmol/L Chloride 103 (96-108) mmol/L Carbon Dioxide 26 (22-29) mmol/L Anion Gap 13 (12-20) BUN 19 H (9-16) mg/dL Creatinine 0.88 (0.5-1.4) mg/dL Estim Creat Clear Calc 84.8 Estimated GFR > 60 Random Glucose 53 L* (60-115) mg/dL Calcium 9.6 (8.4-10.2) mg/dL Total Bilirubin 0.3 (0.0-1.0) mg/dL AST 53 H (5-37) U/L ALT 33 (0-40) U/L Alkaline Phosphatase 243 H D (39-117) U/L Total Protein 7.8 (6.5-8.0) g/dL Albumin 3.9 (3.5-5.0) g/dL Ethyl Alcohol mg/dL COVID-19 (NEETU) Negative (Negative) COVID-19 Clin Com See Note 03/29/21 Range/Units 06:13 WBC (4.8-10.8) X10*3/uL RBC (4.60-5.80) X10*6/uL Hgb (14.0-18.0) g/dl Hct (42.0-52.0) % MCV (80.0-98.0) fL MCH (27.0-33.0) pg MCHC (31.0-36.0) g/dl RDW (11.0-16.0) % Plt Count (160-400) X10*3/uL MPV (9.4-12.4) fL Immature Gran % (Auto) Neut % (Auto) Lymph % (Auto) [place] % (Auto) Eos % (Auto) Baso % (Auto) Lymph # (Auto) [place] # (Auto) Eos # (Auto) Baso # (Auto) Abs Immat Gran (auto) Absolute Neuts (auto) Absolute Nucleated RBC (0.0-0.012) X10*3/uL Nucleated RBC % (auto) (0.0-0.2) /100WBC Neutrophils % (Manual) (45-73) % Band Neutrophils % (3-5) % Lymphocytes % (Manual) (20-40) % Monocytes % (Manual) (2-11) % Basophils % (Manual) (0-2) % Abs Neuts (Manual) (2.0-8.3) X10*3/uL Lymphocytes # (Manual) (1.2-4.9) X10*3/uL Monocytes # (Manual) (0.1-1.2) X10*3/uL Basophils # (Manual) (0.0-0.2) X10*3/uL Smudge Cells Platelet Estimate (NORMAL) Large Platelets Plt Morphology Comment RBC Morphology Sodium (135-145) mmol/L Potassium (3.3-5.1) mmol/L Chloride (96-108) mmol/L Carbon Dioxide (22-29) mmol/L Anion Gap (12-20) BUN (9-16) mg/dL Creatinine (0.5-1.4) mg/dL Estim Creat Clear Calc Estimated GFR Random Glucose (60-115) mg/dL Calcium (8.4-10.2) mg/dL Total Bilirubin (0.0-1.0) mg/dL AST (5-37) U/L ALT (0-40) U/L Alkaline Phosphatase (39-117) U/L Total Protein (6.5-8.0) g/dL Albumin (3.5-5.0) g/dL Ethyl Alcohol < 10 mg/dL COVID-19 (NEETU) (Negative) COVID-19 Clin Com Discharge Plan Discharge Clinical Impression: Depression with suicidal ideation Patient Disposition: Still a Patient Prescriptions: No Action albuterol sulfate [Ventolin HFA] 90 mcg/actuation Hfa Aerosol Inhaler 2 puff inhalation Q4H PRN (Reason: Shortness Of Breath) 30 Days Qty: 6.7 0RF Biktarvy 50-200-25 mg Tablet 1 tab PO BEDTIME 30 Days Qty: 30 0RF benztropine 1 mg Tablet 1 mg PO BEDTIME 30 Days Qty: 30 0RF mirtazapine 7.5 mg Tablet 7.5 mg PO BEDTIME 30 Days Qty: 30 0RF cyanocobalamin (vitamin B-12) 500 mcg Tablet 500 mcg PO DAILY 30 Days Qty: 30 0RF buprenorphine-naloxone [Suboxone] 8-2 mg film 1 strip sublingual BID 0RF trazodone 50 mg Tablet 50 mg PO BEDTIME PRN (Reason: Insomnia) 0RF isosorbide mononitrate 30 mg Tablet Extended Release 24 Hr 30 mg PO DAILY 0RF quetiapine [Seroquel] 200 mg Tablet 200 mg PO BEDTIME 0RF clopidogrel [Plavix] 75 mg Tablet 75 mg PO DAILY 0RF aspirin 81 mg Tablet,Delayed Release (Dr/Ec) 81 mg PO DAILY 0RF nitroglycerin 0.4 mg Tablet, Sublingual 0.4 mg SUBLINGUAL Q5M PRN (Reason: Chest Pain) 0RF mirtazapine 15 mg Tablet 15 mg PO BEDTIME 0RF sertraline 50 mg Tablet 50 mg PO DAILY 0RF
[2021-03-29 06:20] LABS: Hemoglobin 13.8 g/dl (14.0-18.0); Mean Corpuscular HGB Conc 33.7 g/dl (31.0-36.0); Mean Corpuscular Hemoglobin 30.6 pg (27.0-33.0); Mean Corpuscular Volume 90.9 fL (80.0-98.0); Mean Platelet Volume 10.2 fL (9.4-12.4); Platelet Count 165 X10*3/uL (160-400); Red Blood Count 4.51 X10*6/uL (4.60-5.80); Red Cell Distribution Width 14.8 % (11.0-16.0)
[2021-03-29 06:23] LABS: WBC ABN SCTR FOR CBC 1
[2021-03-29 06:32] LABS: COVID-19 Test Negative (Negative)
[2021-03-29 06:42] LABS: Ethanol < 10 mg/dL
[2021-03-29 06:47] LABS: Band Neutrophils Percent 2 % (3-5); Basophils Abs Manual 0.2 X10*3/uL (0.0-0.2); Basophils Percent Manual 2 % (0-2); Large Platelet PRESENT; Lymphocytes Absolute Manual 1.2 X10*3/uL (1.2-4.9); Lymphocytes Percent Manual 16 % (20-40); Monocytes Absolute Manual 0.8 X10*3/uL (0.1-1.2); Monocytes Percent Manual 10 % (2-11); Neutrophils Absolute Manual 5.5 X10*3/uL (2.0-8.3); Neutrophils Percent Manual 70 % (45-73); Platelet Estimate SLIGHTLY DECREASED (NORMAL); Platelet Morphology Comment NORMAL; RBC Morphology NORMAL; Smudge Cells PRESENT; White Blood Count 7.7 X10*3/uL (4.8-10.8)
[2021-03-29 06:48] LABS: Alanine Aminotransferase 33 U/L (0-40); Albumin Level 3.9 g/dL (3.5-5.0); Alkaline Phosphatase 243 U/L (39-117); Anion Gap 13 (12-20); Aspartate Amino Transferase 53 U/L (5-37); Bilirubin Total 0.3 mg/dL (0.0-1.0); Blood Urea Nitrogen 19 mg/dL (9-16); Calcium 9.6 mg/dL (8.4-10.2); Carbon Dioxide 26 mmol/L (22-29); Chloride 103 mmol/L (96-108); Creatinine Clr Calc Pharmacy 84.8; Estimated Glomerular Filt Rate > 60; Glucose Random 53 mg/dL (60-115); Sodium 138 mmol/L (135-145); Total Protein 7.8 g/dL (6.5-8.0)
[2021-03-29 06:55] LABS: Glucose, Whole Blood 87 mg/dL (60-115)
--- NOTE | 2021-03-29 07:17 | PC.NURSE ---
referral sent over to [facility], [place] electronically
[2021-03-29 07:53] VITALS: BP 125/74; PULSE 72; TEMP 36.5; O2SAT 96
--- NOTE | 2021-03-29 07:56 | PC.NURSE ---
pt still in his own clothing, pt changed over into the [facility] attire and belongings secured into the lockers pt reports feeling depressed and does not want to be on this earth anymore, feels suicidal, but calm and cooperative, pt is slightly fidgety, denies using drugs is on suboxone, through [facility]
--- NOTE | 2021-03-29 09:04 | PC.NURSE ---
called the [facility] to varifiy the suboxone clinic and left a message, awaiting a call back
[2021-03-29 16:24] VITALS: BP 111/71; PULSE 82; RESP 18; TEMP 36.8; O2SAT 96
[2021-03-29 17:00] LABS: Amphetamine Screen Urine Not Detected (Not Detect); Barbiturates, Urine Not Detected (Not Detect); Benzodiazepines Screen Urine Not Detected (Not Detect); Cannabinoid Screen Urine Not Detected (Not Detect); Cocaine Screen Urine POSITIVE (Not Detect); Fentanyl, urine POSITIVE (Not Detect); Opiate Screen Urine POSITIVE (Not Detect); Phencyclidine Screen Urine Not Detected (Not Detect)
[2021-03-30 00:25] VITALS: BP 124/77; PULSE 78; RESP 20; TEMP 36.9; O2SAT 100
[2021-03-30 00:59] LABS: Glucose, Whole Blood 120 mg/dL (60-115)
--- NOTE | 2021-03-30 06:17 | PC.NURSE ---
Patient slept through the night, no distress observed/reported, med rec completed/approved/APR updated, behavior appropriate and non-concerniong at this time, POC was 120 @ 0055, disposition per care team is inpatient bed search, VSS, will continue to monitor.
--- NOTE | 2021-03-30 07:07 | PC.NURSE ---
patient appears to remain asleep at present respirations are even and unlabored patient appears in no distress
[2021-03-30] MEDS: Sertraline HCL 50 MG TABLET PO (08:41)
[2021-03-30] MEDS: Isosorbide Mononitrate 30 MG TAB.ER.24H PO (08:41)
[2021-03-30] MEDS: Clopidogrel Bisulfate 75 MG TABLET PO (08:41)
[2021-03-30] MEDS: Cyanocobalamin (Vitamin B-12) 500 MCG TABLET PO (08:42)
[2021-03-30] MEDS: Aspirin Enteric Coated 81 MG TABLET.DR PO (08:42)
== END 2021-03-30 09:15 | disposition home or self-care (01) ==
PROVIDERS: Emergency Medicine Emergency Medical Services; Emergency Provider Emergency Medicine
DX: F33.1 Major depressive disorder, recurrent, moderate (principal); R45.851 Suicidal ideations; F17.210 Nicotine dependence, cigarettes, uncomplicated; Z20.822 Contact with and (suspected) exposure to COVID-19; Z79.899 Other long term (current) drug therapy; Z71.6 Tobacco abuse counseling
CPT/HCPCS: 36415; 80053; 80307; 82077; 82947; 85007; 85027; 87635; 99285

== ENCOUNTER 2021-04-01 12:31 | Emergency (ER) | payer MEDICAID, SELFPAY ==
[2021-04-01 12:34] VITALS: BP 155/90; PULSE 100; O2SAT 90
[2021-04-01 12:41] VITALS: BP 129/97; PULSE 88; RESP 17; TEMP 34.1; BMI 22.8
--- NOTE | 2021-04-01 12:47 | ED_ITS ---
HPI - Overdose General Chief Complaint: General Medical Stated Complaint: OD, 12 MG NARCAN GIVEN W/GOOD RESULT PER EMS Time Seen by Provider: 04/01/21 12:47 Source: patient, EMS and old records reviewed Mode of arrival: EMS Limitations: altered mental status History of Present Illness MD complaint: accidental overdose Onset (ago): unknown How Overdose Was Discovered: other (found outside) Context: Accidental Overdose: wanted to get high Treatments Prior to Arrival: narcan (12mg IN narcan) Related Data Home Medications Medication Instructions Recorded Confirmed aspirin 81 mg tablet,delayed 81 mg PO DAILY 03/05/21 03/29/21 release clopidogrel 75 mg tablet (Plavix) 75 mg PO DAILY 03/05/21 03/29/21 isosorbide mononitrate 30 mg 30 mg PO DAILY 03/05/21 03/29/21 tablet,extended release 24 hr mirtazapine 15 mg tablet 15 mg PO BEDTIME 03/05/21 03/29/21 nitroglycerin 0.4 mg sublingual 0.4 mg SUBLINGUAL Q5M PRN 03/05/21 03/29/21 tablet quetiapine 200 mg tablet (Seroquel) 200 mg PO BEDTIME 03/05/21 03/29/21 sertraline 50 mg tablet 50 mg PO DAILY 03/05/21 03/29/21 trazodone 50 mg tablet 50 mg PO BEDTIME PRN 03/05/21 03/29/21 buprenorphine 8 mg-naloxone 2 mg 1 strip SUBLINGUAL BID 03/29/21 03/29/21 sublingual film (Suboxone) Previous Rx's Medication Instructions Recorded albuterol sulfate 90 mcg/actuation 2 puff INHALATION Q4H PRN 30 Days 10/27/20 aerosol inhaler (Ventolin HFA) #6.7 g benztropine 1 mg tablet 1 mg PO BEDTIME 30 Days #30 tab 10/27/20 bictegravir 50 mg-emtricitabine 1 tab PO BEDTIME 30 Days #30 tab 10/27/20 200 mg-tenofovir alafenam 25 mg tablet (Biktarvy) cyanocobalamin (vitamin B-12) 500 500 mcg PO DAILY 30 Days #30 tab 10/27/20 mcg tablet Allergies Allergy/AdvReac Type Severity Reaction Status Date / Time No Known Allergies Allergy Mild NO REACTION Verified 06/01/20 20:45 Review of Systems Review of Systems: ROS unable to be obtained due to altered mental status [facility] Past Medical History Attestation statement: The following information was validated with the patient. Medical History AIDS Asthma Cocaine use disorder, severe, dependence Depression Hepatitis C HIV (human immunodeficiency virus infection) Opioid dependence Opioid use disorder, severe, in early remission, on maintenance therapy, dependence Schizoaffective disorder Tardive dyskinesia Social History Social History Household Members: Other Household Members Other:: Patient resides in longterm. Housing: Other Housing Other:: Residential [facility] Unable to assess alcohol history related to: Unknown Alcohol intake: unknown Patient Tobacco Use Status: Current everyday Tobacco user Tobacco use type: Cigarette Cigarette Packs Per Day: 0.5 Cigarettes Per Day: 10.0 Years Smoked: 40 e-Cigarette/Vaping Use: Former Use Second Hand Smoke Exposure: No Use of substances other than those prescribed or required for medical reasons: Yes Substance Use Type: Opiates Substance Use Frequency: Chronic Longstanding Last Used Substance: Just Prior to Admission Advance Directives: Yes Advance Directives on File: Yes Advance Directives Date on File: 01/29/20 service: No Sexual orientation: Straight/Heterosexual Physical Exam Vital Signs: Vital Signs: Last Vital Signs Temp 97.5 F 04/01/21 13:45 Pulse 94 04/01/21 13:45 Resp 16 04/01/21 13:45 BP 119/74 04/01/21 13:45 Pulse Ox 98 04/01/21 13:45 BMI result Body Mass Index 22.8 Appearance: Alert. Oriented X2 (time) No acute distress. Eyes: Pupils equal, round and reactive to light. ENT: Pharynx dry MM Neck: Normal inspection. Neck supple. CVS: Normal heart rate and rhythm. Pulses normal. Respiratory: No respiratory distress. Breath sounds normal. Abdomen: Soft and non-tender. Skin: Skin warm and dry. Normal skin color. Normal skin turgor. Extremities: No lower extremity edema. No calf ttp Abrasions superficial L dorsum of hand Neuro: Oriented X 2 (time). No motor deficit. No sensory deficit. Course Course Course Narrative: temperature improving at this time, following commands 98% on RA GCS 15, normal temp, tolerating PO. refusing detox, no SI, no repeat narcan needed in ED - here 2hours GCS 15, states he is leaving. I offered rehab he refuses. I offered narcan to go home with I have a whole box at home. MDM - Overdose MDM Narrative Medical decision making narrative: 60 yo male hx of HIV, opiate use disorder here with c/o overdose requiring 12mg IN narcan at this time he is awake but cold to touch no head trauma noted L hand abrasions at this time he is being re-warmed will continue to observe and keep a close eye on him. Disp per results and findings. Discharge Plan Discharge Clinical Impression: Opiate overdose Qualifiers: Encounter type: initial encounter Injury intent: accidental or unintentional Qualified Code(s): T40.601A - Poisoning by unspecified narcotics, accidental (unintentional), initial encounter Patient Disposition: Home, Self-Care Instructions: Adult Overdose (ED) Additional Instructions: return to ED for any worsening symptoms or concerns carry narcan with you please stop using drugs, consider going to rehab Prescriptions: No Action albuterol sulfate [Ventolin HFA] 90 mcg/actuation Hfa Aerosol Inhaler 2 puff inhalation Q4H PRN (Reason: Shortness Of Breath) 30 Days Qty: 6.7 0RF Biktarvy 50-200-25 mg Tablet 1 tab PO BEDTIME 30 Days Qty: 30 0RF benztropine 1 mg Tablet 1 mg PO BEDTIME 30 Days Qty: 30 0RF cyanocobalamin (vitamin B-12) 500 mcg Tablet 500 mcg PO DAILY 30 Days Qty: 30 0RF trazodone 50 mg Tablet 50 mg PO BEDTIME PRN (Reason: Insomnia) 0RF isosorbide mononitrate 30 mg Tablet Extended Release 24 Hr 30 mg PO DAILY 0RF quetiapine [Seroquel] 200 mg Tablet 200 mg PO BEDTIME 0RF clopidogrel [Plavix] 75 mg Tablet 75 mg PO DAILY 0RF aspirin 81 mg Tablet,Delayed Release (Dr/Ec) 81 mg PO DAILY 0RF nitroglycerin 0.4 mg Tablet, Sublingual 0.4 mg SUBLINGUAL Q5M PRN (Reason: Chest Pain) 0RF mirtazapine 15 mg Tablet 15 mg PO BEDTIME 0RF sertraline 50 mg Tablet 50 mg PO DAILY 0RF buprenorphine-naloxone [Suboxone] 8-2 mg film 1 strip sublingual BID 0RF Interventions: ED Discharge Assessment Last Done: 04/01/21 14:59 Discharge Date/Time: 04/01/21 15:00
--- NOTE | 2021-04-01 13:09 | PC.NURSE ---
pt's belongings list is done security (jerald) at bedside. belongings locked up in decon room by security. pt is very tremulous and shaking, pt street clothing (pants) is wet, all clothing removed and locked in decon and bear hugger placed on pt.
[2021-04-01 13:45] VITALS: BP 119/74; PULSE 94; RESP 16; TEMP 36.4; O2SAT 98
--- NOTE | 2021-04-01 13:45 | PC.NURSE ---
patient's bear hugger removed at this time due to increase in body temperature. patient in no obvious distress at this time. alert and oriented
== END 2021-04-01 15:00 | disposition home or self-care (01) ==
PROVIDERS: Emergency Provider Emergency Medicine
DX: T50.901A Poisoning by unspecified drugs, medicaments and biological substances, accidental (unintentional), initial encounter (principal); Y92.410 Unspecified street and highway as the place of occurrence of the external cause; F14.20 Cocaine dependence, uncomplicated; F11.20 Opioid dependence, uncomplicated; B20 Human immunodeficiency virus [HIV] disease; B19.20 Unspecified viral hepatitis C without hepatic coma; F17.200 Nicotine dependence, unspecified, uncomplicated
CPT/HCPCS: 99284

== ENCOUNTER 2021-06-08 14:04 | Emergency (ER) | payer MEDICAID, SELFPAY ==
--- NOTE | 2021-06-08 14:21 | ED_ITS ---
HPI - Psych General Chief Complaint: ETOH/Substance Use Stated Complaint: 2BAGS HEROIN,NO NARCAN,FOUND @ [facility] Time Seen by Provider: 06/08/21 14:20 Source: patient and EMS Mode of arrival: EMS Limitations: other (intoxicated ) History of Present Illness HPI Narrative: used 2 to 3 bags of heroin - had to pee [place] then was found half asleep, no narcan given, he is making SI statements here complaint: suicidal ideation, anxiety and substance abuse Onset (ago): day(s) Duration: constant History of same: Yes Relieving factors: none Exacerbating factors: drug use Context: recent drug abuse Associated psychiatric symptoms: depression and suicidal ideation Associated symptoms: denies other symptoms Treatments prior to arrival: none Related Data Home Medications Medication Instructions Recorded Confirmed aspirin 81 mg tablet,delayed 81 mg PO DAILY 03/05/21 03/29/21 release clopidogrel 75 mg tablet (Plavix) 75 mg PO DAILY 03/05/21 03/29/21 isosorbide mononitrate 30 mg 30 mg PO DAILY 03/05/21 03/29/21 tablet,extended release 24 hr mirtazapine 15 mg tablet 15 mg PO BEDTIME 03/05/21 03/29/21 nitroglycerin 0.4 mg sublingual 0.4 mg SUBLINGUAL Q5M PRN 03/05/21 03/29/21 tablet quetiapine 200 mg tablet (Seroquel) 200 mg PO BEDTIME 03/05/21 03/29/21 sertraline 50 mg tablet 50 mg PO DAILY 03/05/21 03/29/21 trazodone 50 mg tablet 50 mg PO BEDTIME PRN 03/05/21 03/29/21 buprenorphine 8 mg-naloxone 2 mg 1 strip SUBLINGUAL BID 03/29/21 03/29/21 sublingual film (Suboxone) Previous Rx's Medication Instructions Recorded albuterol sulfate 90 mcg/actuation 2 puff INHALATION Q4H PRN 30 Days 10/27/20 aerosol inhaler (Ventolin HFA) #6.7 g benztropine 1 mg tablet 1 mg PO BEDTIME 30 Days #30 tab 10/27/20 bictegravir 50 mg-emtricitabine 1 tab PO BEDTIME 30 Days #30 tab 10/27/20 200 mg-tenofovir alafenam 25 mg tablet (Biktarvy) cyanocobalamin (vitamin B-12) 500 500 mcg PO DAILY 30 Days #30 tab 10/27/20 mcg tablet Allergies Allergy/AdvReac Type Severity Reaction Status Date / Time No Known Allergies Allergy Mild NO REACTION Verified 06/01/20 20:45 Review of Systems Review of Systems: Constitutional : No Fever, No Chills ENT/Mouth : No Ear Pain, No Nasal Congestion, No sore throat Eyes: No Eye Pain, No Swelling, No Redness Cardiovascular : No Chest Pain, No SOB Respiratory : No Cough, No Sputum, No Dyspnea Gastrointestinal : No Nausea, No Vomiting, No Diarrhea, No Hematochezia, No Melena Genitourinary : No Dysuria, No Urinary Frequency, No Hematuria Musculoskeletal : No Myalgias Skin : No Skin Lesions, No rash Neuro : No Weakness, No Numbness, No Paresthesias, No Dizziness, No Headache Psych : positive Anxiety, positive Depression, positive SI no HI Heme/Lymph: No Lymphadenopathy Endocrine : No Polyuria, No Polydipsia All other systems reviewed and are negative [facility] Past Medical History Attestation statement: The following information was validated with the patient. Medical History AIDS Asthma Cocaine use disorder, severe, dependence Depression Hepatitis C HIV (human immunodeficiency virus infection) Opioid dependence Opioid use disorder, severe, in early remission, on maintenance therapy, dependence Schizoaffective disorder Tardive dyskinesia Social History Social History Household Members: Other Household Members Other:: Patient resides in [facility]. Housing: Other Housing Other:: [facility] Unable to assess alcohol history related to: Unknown Alcohol intake: unknown Patient Tobacco Use Status: Current everyday Tobacco user Tobacco use type: Cigarette Cigarette Packs Per Day: 0.5 Cigarettes Per Day: 10.0 Years Smoked: 40 e-Cigarette/Vaping Use: Former Use Second Hand Smoke Exposure: No Substance Use Type: Opiates Advance Directives: Yes Advance Directives on File: Yes Advance Directives Date on File: 01/29/20 service: No Sexual orientation: Straight/Heterosexual Physical Exam Vital Signs: Vital Signs: Last Vital Signs Temp 99.6 F 06/08/21 14:32 Pulse 119 H 06/08/21 14:32 Resp 16 06/08/21 14:32 BP 126/69 06/08/21 14:32 Pulse Ox 96 06/08/21 14:32 BMI result Body Mass Index 25.0 Appearance: Alert. Oriented X3. Anxious mild acute distress. Jerking movements back and forth - typical for patient in ED. Very animated I don't want to live. Eyes: Pupils equal, round and reactive to light. 2mm ENT: Pharynx normal. Neck: Normal inspection. Neck supple. CVS: Normal heart rate and rhythm. Pulses normal. Respiratory: No respiratory distress. Breath sounds normal. Abdomen: Soft and nontender. Skin: Skin warm and dry. Normal skin color. Normal skin turgor. Extremities: No lower extremity edema. No calf ttp Neuro: Oriented X 3. No motor deficit. No sensory deficit. CN2-12intact Course Course Course Narrative: Physician observation started at 337pm. Patient placed in physician observation because the patient needed more time for BHN to assess given SI statements. At the time observation was started the patient's vitals were stable, patient is alert and oriented but slightly agitated/anxious, Neuro: nonfocal, CV RRR, Lungs clear. PO ativavn ordered MDM - Psych MDM Narrative Medical decision making narrative: 60 yo male well known to us for polysubstance abuse and mental health issues comes in today with c/o using today and now has SI - at this time COVID swab, drug screen ordered. Will refer to BHN though believe this is situtational and related to his drug use Lab Data Labs: Lab Results 06/08/21 Range/Units 15:12 COVID-19 (NEETU) Negative (Negative) COVID-19 Clin Com See Note Discharge Plan Discharge Clinical Impression: Polysubstance abuse Patient Disposition: Still a Patient Prescriptions: No Action albuterol sulfate [Ventolin HFA] 90 mcg/actuation Hfa Aerosol Inhaler 2 puff inhalation Q4H PRN (Reason: Shortness Of Breath) 30 Days Qty: 6.7 0RF Biktarvy 50-200-25 mg Tablet 1 tab PO BEDTIME 30 Days Qty: 30 0RF benztropine 1 mg Tablet 1 mg PO BEDTIME 30 Days Qty: 30 0RF cyanocobalamin (vitamin B-12) 500 mcg Tablet 500 mcg PO DAILY 30 Days Qty: 30 0RF trazodone 50 mg Tablet 50 mg PO BEDTIME PRN (Reason: Insomnia) 0RF isosorbide mononitrate 30 mg Tablet Extended Release 24 Hr 30 mg PO DAILY 0RF quetiapine [Seroquel] 200 mg Tablet 200 mg PO BEDTIME 0RF clopidogrel [Plavix] 75 mg Tablet 75 mg PO DAILY 0RF aspirin 81 mg Tablet,Delayed Release (Dr/Ec) 81 mg PO DAILY 0RF nitroglycerin 0.4 mg Tablet, Sublingual 0.4 mg SUBLINGUAL Q5M PRN (Reason: Chest Pain) 0RF mirtazapine 15 mg Tablet 15 mg PO BEDTIME 0RF sertraline 50 mg Tablet 50 mg PO DAILY 0RF buprenorphine-naloxone [Suboxone] 8-2 mg film 1 strip sublingual BID 0RF
[2021-06-08 14:26] VITALS: BP 123/85; PULSE 74; O2SAT 95
[2021-06-08 14:32] VITALS: BP 126/69; PULSE 119; RESP 16; TEMP 37.6; O2SAT 96; BMI 25.0
[2021-06-08] MEDS: LORazepam 1 MG TABLET 2 MG PO ×2 (15:19→17:57)
[2021-06-08 15:31] LABS: COVID-19 Test Negative (Negative); IDNOW Serial# 16C4AD1C
--- NOTE | 2021-06-08 16:04 | PC.NURSE ---
pt changed into [facility], belongings in locker 8
[2021-06-08 16:27] VITALS: BP 131/78; PULSE 112; RESP 20; TEMP 36.2; O2SAT 94
[2021-06-08] MEDS: Acetaminophen 325 MG TABLET 650 MG PO (17:19)
--- NOTE | 2021-06-08 17:58 | HO.SUDE ---
Pt's altered mental status prevented pt from participating in SUDE at this time. CARE Team will try again later.
[2021-06-08 20:52] VITALS: BP 115/82; PULSE 87; RESP 12; O2SAT 95
[2021-06-08 23:23] VITALS: BP 131/90; PULSE 71; RESP 18; O2SAT 94
--- NOTE | 2021-06-09 00:32 | PC.NURSE ---
Pt has been sleeping at times, at other times awake and eating nelson crackers and juice and talking to himself. Will continue to monitor.
[2021-06-09 02:30] VITALS: BP 129/77; PULSE 80; RESP 16; O2SAT 93
== END 2021-06-09 10:12 | disposition home or self-care (01) ==
PROVIDERS: Emergency Provider Emergency Medicine
DX: T40.1X1A Poisoning by heroin, accidental (unintentional), initial encounter (principal); F41.9 Anxiety disorder, unspecified; R45.851 Suicidal ideations; Y92.240 Courthouse as the place of occurrence of the external cause; F17.210 Nicotine dependence, cigarettes, uncomplicated; Z20.822 Contact with and (suspected) exposure to COVID-19; Z71.6 Tobacco abuse counseling; Z79.899 Other long term (current) drug therapy; Z71.51 Drug abuse counseling and surveillance of drug abuser
CPT/HCPCS: 87635; 99284; 99285

== ENCOUNTER 2021-06-12 16:30 | Inpatient (IN) | payer OTHER, SELFPAY ==
[2021-06-12 16:42] VITALS: BP 117/75; PULSE 88; TEMP 37.1
[2021-06-12 16:55] VITALS: BMI 23.1
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
--- NOTE | 2021-06-12 18:59 | PC.ADMIT ---
Pt is a 60 year old male who presents to on a cv status at approximately 16:36. Pt is know to previously. Pt is covid - Utox + for heroin, cocaine, fentanyl, and ETOH. During admit pt denied SI/HI/AVH/pain. Pt allowed vital signs and immediately wanted to go to bed. Per chart review, Pt self-presented to the [facility] ED endorsing suicidal ideation with a plan to hang himself with a bed sheet. Pt stated that he is unhappy with his present living conditions. He stated that he has a roommate that he does not get along with. He reports an increase in heroin in an effort to kill himself. Pt appears restless and kept rocking back and forth during his admission. Pt answered questions with a yes or no. Pt has outpt supports. Provider called for orders and notified of admission. start treatment plan and monitor for safety.
[2021-06-12] MEDS: Benztropine Mesylate 1 MG TABLET PO (20:23)
[2021-06-12] MEDS: Buprenorphine/Naloxone 8/2 mg FILM 1 FILM SUBLINGUAL (20:23)
[2021-06-12] MEDS: Atorvastatin Calcium 80 MG TABLET PO (20:23)
[2021-06-12] MEDS: Mirtazapine 15 MG TABLET PO (20:23)
[2021-06-12] MEDS: QUEtiapine Fumarate 200 MG TABLET PO (20:24)
[2021-06-13] MEDS: Levothyroxine Sodium 50 MCG TABLET PO (06:25)
[2021-06-13 07:18] LABS: Estimated Average Glucose 108 mg/dL; Hemoglobin A1c % 5.4 %
[2021-06-13 07:32] LABS: Cholesterol 214 mg/dL; HDL Cholesterol 17 mg/dL; Magnesium 1.8 mg/dL (1.6-2.6); Triglycerides 897 mg/dL
[2021-06-13 07:46] LABS: Free T4 (Free Thyroxine) 1.02 ng/dL (0.71-1.85); Thyroid Stimulating Hormone 1.95 uIU/mL (0.32-4.0)
[2021-06-13 08:00] VITALS: PULSE 101
[2021-06-13] MEDS: Buprenorphine/Naloxone 8/2 mg FILM 1 FILM SUBLINGUAL ×2 (08:34→20:21)
[2021-06-13] MEDS: Isosorbide Mononitrate 30 MG TAB.ER.24H PO (08:34)
[2021-06-13] MEDS: Multivitamin TABLET 1 TAB PO (08:34)
[2021-06-13] MEDS: Escitalopram Oxalate 10 MG TABLET PO (08:34)
[2021-06-13] MEDS: Sulfamethox/Trimeth 800/160 TABLET 1 TAB PO (08:34)
[2021-06-13 08:36] VITALS: BP 101/65; PULSE 101; RESP 18; TEMP 36.4; O2SAT 97
--- NOTE | 2021-06-13 11:41 | P.CONHOSP_ITS ---
History of Present Illness Data of Consult Service Date: 06/13/21 Primary Care Provider: [facility] HPI 60 year male with HIV, depression, ashtma, hepc and other issues as listed below including chronic schizophrenia. He as admitted again for managment of schizophrenia and appear pretty psychotic. He points to no acute medical issues at moment. Review of Systems Review of Systems: Gen: no fever Resp: no sob, no cough CV: no chest, no ARAYA, no leg edema GI: No n/v, no abd pain Neuro: No confusion Yes all other systems are reviewed and are negative [facility] Medical History AIDS Asthma Cocaine use disorder, severe, dependence Depression Hepatitis C HIV (human immunodeficiency virus infection) Opioid dependence Opioid use disorder, severe, in early remission, on maintenance therapy, dependence Schizoaffective disorder Tardive dyskinesia Pertinent family history: He is not aware of his family history Social History Household Members: None Household Members Other:: Patient resides in alf. Housing: Apartment Housing Other:: Nursing Home [facility] Home Do you presently have visiting nurse or other home services: No Unable to assess alcohol history related to: Unknown Alcohol intake: unknown Patient Tobacco Use Status: Current everyday Tobacco user Tobacco use type: Cigarette Cigarette Packs Per Day: 1 Cigarettes Per Day: 20.0 Years Smoked: 40 Smoked in Last 30 Days: Yes e-Cigarette/Vaping Use: Former Use Patient Interested in Nicotine Replacement: Yes Patient Given Instructions on How to Stop Smoking: Yes Date Education Initiated: 06/12/21 Second Hand Smoke Exposure: No Use of substances other than those prescribed or required for medical reasons: Yes Substance Use Type: Crack/Cocaine and Heroin Substance Use Frequency: Socially Currently Displaying Signs/Symptoms of Drug Intoxication Withdrawal: No Have you been hit, kicked, punched, or otherwise hurt by someone within the past year? If so, by whom?: No Do you feel safe in your current relationship?: No Current Relationship Are you made to feel afraid or neglected: No Advance Directives: Yes Advance Directives on File: Yes Advance Directives Date on File: 01/29/20 Do you have thoughts of harming others: None Do you have a plan to hurt others: No Plan Recently lost weight without trying: No Eating poorly because of decreased appetite: No Nutrition Risks: No Nutritional Risk Poor oral hygiene: No service: No Sexual orientation: Straight/Heterosexual Meds Allergies Allergy/AdvReac Type Severity Reaction Status Date / Time No Known Allergies Allergy Mild NO REACTION Verified 06/01/20 20:45 Active Medications: Current Medications Acetaminophen (Acetaminophen 325 Mg Tablet) 650 mg PO Q6H PRN PRN Reason: Headache/Pain Mild Scale (1-3) Al Hydroxide/Mg Hydroxide (Magnesium Hydrox/Alum Hydrox 30 Ml Oral.Susp) 30 ml PO Q6H PRN PRN Reason: Heartburn/Nausea Atorvastatin Calcium (Atorvastatin Calcium 80 Mg Tablet) 80 mg PO BEDTIME [facility] Last Admin: 06/12/21 20:23 Dose: 80 mg Documented by: Benztropine Mesylate (Benztropine Mesylate 1 Mg Tablet) 1 mg PO BEDTIME [facility] Last Admin: 06/12/21 20:23 Dose: 1 mg Documented by: Buprenorphine/Naloxone (Buprenorphine/Naloxone 8/2 Mg Film) 1 film SUBLINGUAL BID [facility] Last Admin: 06/13/21 08:34 Dose: 1 film Documented by: Clonidine HCl (Clonidine Hcl 0.1 Mg Tablet) 0.1 mg PO TID PRN; Protocol PRN Reason: hyperarousal, agitation, anxiety Docusate Sodium (Docusate Sodium 100 Mg Capsule) 100 mg PO BEDTIME PRN PRN Reason: constipation Escitalopram Oxalate (Escitalopram Oxalate 10 Mg Tablet) 10 mg PO DAILY [facility] Last Admin: 06/13/21 08:34 Dose: 10 mg Documented by: Hydroxyzine HCl (Hydroxyzine Hcl 25 Mg Tablet) 25 mg PO Q6H PRN PRN Reason: Anxiety Isosorbide Mononitrate (Isosorbide Mononitrate 30 Mg Tab.Er.24h) 30 mg PO DAILY [facility]; Protocol Last Admin: 06/13/21 08:34 Dose: 30 mg Documented by: Levothyroxine Sodium (Levothyroxine Sodium 50 Mcg Tablet) 50 mcg PO DAILY@0600 [facility] Last Admin: 06/13/21 06:25 Dose: 50 mcg Documented by: Magnesium Hydroxide (Milk Of Magnesia 30 Ml Oral.Susp) 30 ml PO DAILY PRN PRN Reason: Constipation Mirtazapine (Mirtazapine 15 Mg Tablet) 15 mg PO BEDTIME [facility] Last Admin: 06/12/21 20:23 Dose: 15 mg Documented by: Multivitamins/Vitamin C (Multivitamin Tablet) 1 tab PO DAILY [facility] Last Admin: 06/13/21 08:34 Dose: 1 tab Documented by: Ondansetron HCl (Ondansetron Odt 8 Mg Tab.Rapdis) 8 mg TRANSLINGU Q12H PRN PRN Reason: nausea Quetiapine Fumarate (Quetiapine Fumarate 200 Mg Tablet) 200 mg PO BEDTIME [facility] Last Admin: 06/12/21 20:24 Dose: 200 mg Documented by: Quetiapine Fumarate (Quetiapine Fumarate 50 Mg Tablet) 50 mg PO BID PRN PRN Reason: anxiety Trazodone HCl (Trazodone Hcl 50 Mg Tablet) 50 mg PO BEDTIME PRN PRN Reason: Insomnia Trimethoprim/Sulfamethoxazole (Sulfamethox/Trimeth 800/160 Tablet) 1 tab PO DAILY [facility] Last Admin: 06/13/21 08:34 Dose: 1 tab Documented by: Home Medications Medication Instructions Recorded Confirmed Last Taken Type aspirin 81 mg tablet,delayed 81 mg PO DAILY 03/05/21 06/12/21 03/28/21 08:00 History release clopidogrel 75 mg tablet (Plavix) 75 mg PO DAILY 03/05/21 06/12/21 03/28/21 08:00 History isosorbide mononitrate 30 mg 30 mg PO DAILY 03/05/21 06/12/21 03/28/21 08:00 History tablet,extended release 24 hr mirtazapine 15 mg tablet 15 mg PO BEDTIME 03/05/21 06/12/21 03/28/21 20:00 History nitroglycerin 0.4 mg sublingual 0.4 mg SUBLINGUAL Q5M PRN 03/05/21 06/12/21 Unknown History tablet quetiapine 200 mg tablet (Seroquel) 200 mg PO BEDTIME 03/05/21 06/12/21 03/28/21 20:00 History sertraline 50 mg tablet 50 mg PO DAILY 03/05/21 06/12/21 03/28/21 08:00 History trazodone 50 mg tablet 50 mg PO BEDTIME PRN 03/05/21 06/12/21 03/28/21 20:00 History buprenorphine 8 mg-naloxone 2 mg 1 strip SUBLINGUAL BID 03/29/21 06/12/21 Unknown History sublingual film (Suboxone) Physical Exam Vital Signs and Narrative: Vital Signs: Last Vital Signs Temp 97.6 F 06/13/21 08:36 Pulse 101 H 06/13/21 08:36 Resp 18 06/13/21 08:36 BP 101/65 06/13/21 08:36 Pulse Ox 97 06/13/21 08:36 BMI result Body Mass Index 23.1 Const: Other: Constitutional: Alert, in no distress, overweight. Mental Status: Oriented to person, place and time. Eyes: Pupils are equal, round and reactive to light. Ear, Nose and Throat: Oropharynx clear, mucous membranes moist. Ears and nose without eformities. Trachea midline. Respiratory: Clear to auscultation. No wheezing, rales or rhonchi. Cardiovascular: S1 S2 regular. No murmurs, rubs or gallops. Gastrointestinal: Abdomen soft, non-tender, non-distended. Normal bowel sounds.? Neurologic: Cranial nerves II-XII grossly intact. No focal neurological deficits. Moves all extremities spontaneously.? Skin: No rashes or lesions.? Musculoskeletal: No cyanosis or clubbing. Psychiatric: Normal mood and affect? Results Labs Labs: Laboratory Results - last 24 hr 06/13/21 06/13/21 06:59 06:59 Estimat Average Glucose 108 Hemoglobin A1c % 5.4 Magnesium 1.8 Triglycerides 897 Cholesterol 214 LDL Cholesterol, Calc TNP HDL Cholesterol 17 D TSH 1.95 Free T4 1.02 Assessment and Plan (1) HIV (human immunodeficiency virus infection): Status: Chronic (2) Opioid use disorder, severe, in early remission, on maintenance therapy, dependence: Status: Chronic (3) Schizoaffective disorder: Status: Acute Plan 60 year male with HIV, Hep C, opioid use desorder, schizophrenia being treated for schizophrenia.. 1/ HiV he has been on Bictarvy and should be continued 2/HLD--Lipitir 3/CAD--ASA, Plavis, Lipitor 4/Schizophrenia depression.. management by Psych
[2021-06-13] MEDS: Aspirin Enteric Coated 81 MG TABLET.DR PO (12:13)
[2021-06-13] MEDS: Cyanocobalamin (Vitamin B-12) 500 MCG TABLET PO (12:13)
[2021-06-13] MEDS: Clopidogrel Bisulfate 75 MG TABLET PO (12:13)
--- NOTE | 2021-06-13 12:30 | P.PNPSI_ITS ---
Subjective Subjective Date of Service: 06/13/21 Reason For Visit: schizoaffective, depressive type,opiod use Subjective Notes: Conditional Voluntary Interim History: Pt reports not feeling well, mostly because he is hearing voices telling him to hurt others. He states he does not know why voices are telling him this as he has nothing against people on the unit. He denies any plan or intent to do so but reports feeling bothered by it. Pt denies SI no behavioral concerns. Medication Compliance: Yes Side effects from medications: No Review of Systems Review of Systems Gen: no fever Resp: no sob, no cough CV: no chest, no ARAYA, no leg edema GI: No n/v, no abd pain Neuro: No confusion Yes all other systems are reviewed and are negative Mental Status Exam Mental Status Exam Narrative: A&O. In hospital attire, overweight, laying down. Poor eye contact, inattentive. No Tics or Tremors. No abnormal involuntary movements. Calm, but guarded, did not want to talk, in withdrawal. Non-pressured speech, spontaneous with regular rate and rhythm, normal volume and prosody. No prolonged speech latency or dysarthria. Mood is ?depressed,? affect is appropriate. Intermittent SI. Denies SIB/HI upon inquiry. Denies A/VH or delusional thought content. Thoughts are distracted. No known cognitive or memory impairment. Insight/ Judgment limited. Diagnostics Vital Signs (24Hr): Vital Signs - 24 hr 06/14/21 08:43 06/14/21 18:41 Temperature 98.1 F Pulse Rate 97 80 Respiratory Rate 18 Blood Pressure 120/71 116/80 Pulse Oximetry 97 BMI result Body Mass Index 23.1 Medications Medications Current Medications Acetaminophen (Acetaminophen 325 Mg Tablet) 650 mg PO Q6H PRN PRN Reason: Headache/Pain Mild Scale (1-3) Last Admin: 06/13/21 22:30 Dose: 650 mg Documented by: Al Hydroxide/Mg Hydroxide (Magnesium Hydrox/Alum Hydrox 30 Ml Oral.Susp) 30 ml PO Q6H PRN PRN Reason: Heartburn/Nausea Albuterol Sulfate (Albuterol Sulfate 90 Mcg 8 Gm Inhaler) 2 puff INHALE Q4H PRN PRN Reason: Shortness Of Breath Aspirin (Aspirin Enteric Coated 81 Mg Tablet.) 81 mg PO DAILY [facility] Last Admin: 06/14/21 08:40 Dose: 81 mg Documented by: Atorvastatin Calcium (Atorvastatin Calcium 80 Mg Tablet) 80 mg PO BEDTIME [facility] Last Admin: 06/14/21 20:08 Dose: 80 mg Documented by: Benztropine Mesylate (Benztropine Mesylate 1 Mg Tablet) 1 mg PO BEDTIME [facility] Last Admin: 06/14/21 20:09 Dose: 1 mg Documented by: Bictegravir/Emtricitabine/Tenofovir (Bictegrav/Emtricit/Tenofov Ala Tablet) 1 tab PO BEDTIME [facility] Last Admin: 06/14/21 20:09 Dose: 1 tab Documented by: Buprenorphine/Naloxone (Buprenorphine/Naloxone 8/2 Mg Film) 1 film SUBLINGUAL BID [facility] Last Admin: 06/14/21 20:09 Dose: 1 film Documented by: Clonidine HCl (Clonidine Hcl 0.1 Mg Tablet) 0.1 mg PO TID PRN; Protocol PRN Reason: hyperarousal, agitation, anxiety Last Admin: 06/15/21 02:18 Dose: 0.1 mg Documented by: Clopidogrel Bisulfate (Clopidogrel Bisulfate 75 Mg Tablet) 75 mg PO DAILY [facility] Last Admin: 06/14/21 08:40 Dose: 75 mg Documented by: Cyanocobalamin (Cyanocobalamin (Vitamin B-12) 500 Mcg Tablet) 500 mcg PO DAILY [facility] Last Admin: 06/14/21 08:40 Dose: 500 mcg Documented by: Docusate Sodium (Docusate Sodium 100 Mg Capsule) 100 mg PO BEDTIME PRN PRN Reason: constipation Hydroxyzine HCl (Hydroxyzine Hcl 25 Mg Tablet) 25 mg PO Q6H PRN PRN Reason: Anxiety Isosorbide Mononitrate (Isosorbide Mononitrate 30 Mg Tab.Er.24h) 30 mg PO DAILY [facility]; Protocol Last Admin: 06/14/21 08:40 Dose: 30 mg Documented by: Levothyroxine Sodium (Levothyroxine Sodium 50 Mcg Tablet) 50 mcg PO DAILY@0600 [facility] Last Admin: 06/15/21 06:16 Dose: 50 mcg Documented by: Magnesium Hydroxide (Milk Of Magnesia 30 Ml Oral.Susp) 30 ml PO DAILY PRN PRN Reason: Constipation Mirtazapine (Mirtazapine 15 Mg Tablet) 15 mg PO BEDTIME [facility] Last Admin: 06/14/21 20:08 Dose: 15 mg Documented by: Multivitamins/Vitamin C (Multivitamin Tablet) 1 tab PO DAILY [facility] Last Admin: 06/14/21 08:40 Dose: 1 tab Documented by: Nitroglycerin (Nitroglycerin 0.4 Mg Tab.Subl) 0.4 mg SUBLINGUAL Q5M PRN PRN Reason: Chest Pain Ondansetron HCl (Ondansetron Odt 8 Mg Tab.Rapdis) 8 mg TRANSLINGU Q12H PRN PRN Reason: nausea Quetiapine Fumarate (Quetiapine Fumarate 200 Mg Tablet) 200 mg PO BEDTIME [facility] Last Admin: 06/14/21 20:38 Dose: 200 mg Documented by: Quetiapine Fumarate (Quetiapine Fumarate 50 Mg Tablet) 50 mg PO BID PRN PRN Reason: anxiety Risperidone (Risperidone 1 Mg Tablet) 1 mg PO BID [facility] Last Admin: 06/14/21 20:08 Dose: 1 mg Documented by: Trazodone HCl (Trazodone Hcl 50 Mg Tablet) 50 mg PO BEDTIME PRN PRN Reason: Insomnia Last Admin: 06/15/21 02:18 Dose: 50 mg Documented by: Trimethoprim/Sulfamethoxazole (Sulfamethox/Trimeth 800/160 Tablet) 1 tab PO DAILY [facility] Last Admin: 06/14/21 08:40 Dose: 1 tab Documented by: Allergies Allergies Allergy/AdvReac Type Severity Reaction Status Date / Time No Known Allergies Allergy Mild NO REACTION Verified 06/01/20 20:45 Assessment & Plan Assessment & Plan (1) Schizoaffective disorder: Status: Acute Code(s): F25.9 - Schizoaffective disorder, unspecified (2) HIV (human immunodeficiency virus infection): Status: Chronic Code(s): B20 - Human immunodeficiency virus [HIV] disease (3) Opioid use disorder, severe, in early remission, on maintenance therapy, dependence: Status: Chronic Code(s): F11.21 - Opioid dependence, in remission Plan 60 year male with HIV, Hep C, opioid use desorder, schizophrenia being treated for schizophrenia.. 1/ HiV he has been on Bictarvy and should be continued 2/HLD--Lipitir 3/CAD--ASA, Plavis, Lipitor 4/Schizophrenia depression.. management by Psych 06/13- add risperidone 1mg po BID, to seroquel for voices. I spent ____25__ minutes with the patient and/or on the patient floor today, greater than?50% of which was spent counseling/coordinating care. Reason for contiued inpatient stay Substantial Risk for: inability to function
[2021-06-13] MEDS: risperiDONE 1 MG TABLET PO ×2 (12:33→20:21)
[2021-06-13 16:00] VITALS: PULSE 107
[2021-06-13 18:43] VITALS: BP 128/82; PULSE 107
[2021-06-13] MEDS: Atorvastatin Calcium 80 MG TABLET PO (20:21)
[2021-06-13] MEDS: Mirtazapine 15 MG TABLET PO (20:21)
[2021-06-13] MEDS: Benztropine Mesylate 1 MG TABLET PO (20:21)
[2021-06-13] MEDS: QUEtiapine Fumarate 200 MG TABLET PO (20:21)
[2021-06-13] MEDS: Bictegrav/Emtricit/Tenofov Ala TABLET 1 TAB PO (20:21)
[2021-06-13] MEDS: Acetaminophen 325 MG TABLET 650 MG PO (22:30)
[2021-06-14] MEDS: Levothyroxine Sodium 50 MCG TABLET PO (06:01)
--- NOTE | 2021-06-14 07:59 | HO.PSYCHPN ---
Subjective Subjective Date of Service: 06/14/21 Reason For Visit: schizoaffective, depressive type,opiod use Subjective Notes: Conditional Voluntary Interim History: Pt continues to report AH telling him to hurt others. Pt again denies any intent. He reports he is bothered by voices and prefers to stay in his room. Denies additional concerns. Pt denies SI no behavioral concerns. Medication Compliance: Yes Side effects from medications: No Review of Systems Review of Systems Gen: no fever Resp: no sob, no cough CV: no chest, no ARAYA, no leg edema GI: No n/v, no abd pain Neuro: No confusion Yes all other systems are reviewed and are negative Mental Status Exam Mental Status Exam Narrative: A&O. In hospital attire, overweight, laying down. Poor eye contact, inattentive. No Tics or Tremors. No abnormal involuntary movements. Calm, but guarded, did not want to talk, in withdrawal. Non-pressured speech, spontaneous with regular rate and rhythm, normal volume and prosody. No prolonged speech latency or dysarthria. Mood is ?depressed,? affect is appropriate. Intermittent SI. Denies SIB/HI upon inquiry. Denies A/VH or delusional thought content. Thoughts are distracted. No known cognitive or memory impairment. Insight/ Judgment limited. Diagnostics Vital Signs (24Hr): Vital Signs - 24 hr 06/14/21 08:43 06/14/21 18:41 Temperature 98.1 F Pulse Rate 97 80 Respiratory Rate 18 Blood Pressure 120/71 116/80 Pulse Oximetry 97 BMI result Body Mass Index 23.1 Medications Medications Current Medications Acetaminophen (Acetaminophen 325 Mg Tablet) 650 mg PO Q6H PRN PRN Reason: Headache/Pain Mild Scale (1-3) Last Admin: 06/13/21 22:30 Dose: 650 mg Documented by: Al Hydroxide/Mg Hydroxide (Magnesium Hydrox/Alum Hydrox 30 Ml Oral.Susp) 30 ml PO Q6H PRN PRN Reason: Heartburn/Nausea Albuterol Sulfate (Albuterol Sulfate 90 Mcg 8 Gm Inhaler) 2 puff INHALE Q4H PRN PRN Reason: Shortness Of Breath Aspirin (Aspirin Enteric Coated 81 Mg Tablet.) 81 mg PO DAILY [facility] Last Admin: 06/14/21 08:40 Dose: 81 mg Documented by: Atorvastatin Calcium (Atorvastatin Calcium 80 Mg Tablet) 80 mg PO BEDTIME [facility] Last Admin: 06/14/21 20:08 Dose: 80 mg Documented by: Benztropine Mesylate (Benztropine Mesylate 1 Mg Tablet) 1 mg PO BEDTIME [facility] Last Admin: 06/14/21 20:09 Dose: 1 mg Documented by: Bictegravir/Emtricitabine/Tenofovir (Bictegrav/Emtricit/Tenofov Ala Tablet) 1 tab PO BEDTIME [facility] Last Admin: 06/14/21 20:09 Dose: 1 tab Documented by: Buprenorphine/Naloxone (Buprenorphine/Naloxone 8/2 Mg Film) 1 film SUBLINGUAL BID [facility] Last Admin: 06/14/21 20:09 Dose: 1 film Documented by: Clonidine HCl (Clonidine Hcl 0.1 Mg Tablet) 0.1 mg PO TID PRN; Protocol PRN Reason: hyperarousal, agitation, anxiety Last Admin: 06/15/21 02:18 Dose: 0.1 mg Documented by: Clopidogrel Bisulfate (Clopidogrel Bisulfate 75 Mg Tablet) 75 mg PO DAILY [facility] Last Admin: 06/14/21 08:40 Dose: 75 mg Documented by: Cyanocobalamin (Cyanocobalamin (Vitamin B-12) 500 Mcg Tablet) 500 mcg PO DAILY [facility] Last Admin: 06/14/21 08:40 Dose: 500 mcg Documented by: Docusate Sodium (Docusate Sodium 100 Mg Capsule) 100 mg PO BEDTIME PRN PRN Reason: constipation Hydroxyzine HCl (Hydroxyzine Hcl 25 Mg Tablet) 25 mg PO Q6H PRN PRN Reason: Anxiety Isosorbide Mononitrate (Isosorbide Mononitrate 30 Mg Tab.Er.24h) 30 mg PO DAILY [facility]; Protocol Last Admin: 06/14/21 08:40 Dose: 30 mg Documented by: Levothyroxine Sodium (Levothyroxine Sodium 50 Mcg Tablet) 50 mcg PO DAILY@0600 [facility] Last Admin: 06/15/21 06:16 Dose: 50 mcg Documented by: Magnesium Hydroxide (Milk Of Magnesia 30 Ml Oral.Susp) 30 ml PO DAILY PRN PRN Reason: Constipation Mirtazapine (Mirtazapine 15 Mg Tablet) 15 mg PO BEDTIME [facility] Last Admin: 06/14/21 20:08 Dose: 15 mg Documented by: Multivitamins/Vitamin C (Multivitamin Tablet) 1 tab PO DAILY [facility] Last Admin: 06/14/21 08:40 Dose: 1 tab Documented by: Nitroglycerin (Nitroglycerin 0.4 Mg Tab.Subl) 0.4 mg SUBLINGUAL Q5M PRN PRN Reason: Chest Pain Ondansetron HCl (Ondansetron Odt 8 Mg Tab.Rapdis) 8 mg TRANSLINGU Q12H PRN PRN Reason: nausea Quetiapine Fumarate (Quetiapine Fumarate 200 Mg Tablet) 200 mg PO BEDTIME [facility] Last Admin: 06/14/21 20:38 Dose: 200 mg Documented by: Quetiapine Fumarate (Quetiapine Fumarate 50 Mg Tablet) 50 mg PO BID PRN PRN Reason: anxiety Risperidone (Risperidone 1 Mg Tablet) 1 mg PO BID [facility] Last Admin: 06/14/21 20:08 Dose: 1 mg Documented by: Trazodone HCl (Trazodone Hcl 50 Mg Tablet) 50 mg PO BEDTIME PRN PRN Reason: Insomnia Last Admin: 06/15/21 02:18 Dose: 50 mg Documented by: Trimethoprim/Sulfamethoxazole (Sulfamethox/Trimeth 800/160 Tablet) 1 tab PO DAILY [facility] Last Admin: 06/14/21 08:40 Dose: 1 tab Documented by: Allergies Allergies Allergy/AdvReac Type Severity Reaction Status Date / Time No Known Allergies Allergy Mild NO REACTION Verified 06/01/20 20:45 Assessment & Plan Assessment & Plan (1) Schizoaffective disorder: Status: Acute Code(s): F25.9 - Schizoaffective disorder, unspecified (2) HIV (human immunodeficiency virus infection): Status: Chronic Code(s): B20 - Human immunodeficiency virus [HIV] disease (3) Opioid use disorder, severe, in early remission, on maintenance therapy, dependence: Status: Chronic Code(s): F11.21 - Opioid dependence, in remission Plan 60 year male with HIV, Hep C, opioid use desorder, schizophrenia being treated for schizophrenia.. 1/ HiV he has been on Bictarvy and should be continued 2/HLD--Lipitir 3/CAD--ASA, Plavis, Lipitor 4/Schizophrenia depression.. management by Psych 06/13- add risperidone 1mg po BID, to seroquel for voices. 06/14 continue tx. I spent __25____ minutes with the patient and/or on the patient floor today, greater than?50% of which was spent counseling/coordinating care. Reason for contiued inpatient stay Substantial Risk for: inability to function
[2021-06-14] MEDS: risperiDONE 1 MG TABLET PO ×2 (08:40→20:08)
[2021-06-14] MEDS: Buprenorphine/Naloxone 8/2 mg FILM 1 FILM SUBLINGUAL ×2 (08:40→20:09)
[2021-06-14] MEDS: Aspirin Enteric Coated 81 MG TABLET.DR PO (08:40)
[2021-06-14] MEDS: Isosorbide Mononitrate 30 MG TAB.ER.24H PO (08:40)
[2021-06-14] MEDS: Sulfamethox/Trimeth 800/160 TABLET 1 TAB PO (08:40)
[2021-06-14] MEDS: Cyanocobalamin (Vitamin B-12) 500 MCG TABLET PO (08:40)
[2021-06-14] MEDS: Multivitamin TABLET 1 TAB PO (08:40)
[2021-06-14] MEDS: Clopidogrel Bisulfate 75 MG TABLET PO (08:40)
[2021-06-14 08:43] VITALS: BP 120/71; PULSE 97; RESP 18; TEMP 36.7; O2SAT 97
[2021-06-14 08:44] VITALS: PULSE 97
[2021-06-14 16:00] VITALS: PULSE 80
[2021-06-14 18:41] VITALS: BP 116/80; PULSE 80
[2021-06-14] MEDS: Mirtazapine 15 MG TABLET PO (20:08)
[2021-06-14] MEDS: Atorvastatin Calcium 80 MG TABLET PO (20:08)
[2021-06-14] MEDS: Bictegrav/Emtricit/Tenofov Ala TABLET 1 TAB PO (20:09)
[2021-06-14] MEDS: Benztropine Mesylate 1 MG TABLET PO (20:09)
[2021-06-14] MEDS: QUEtiapine Fumarate 200 MG TABLET PO (20:38)
[2021-06-15] MEDS: traZODone HCL 50 MG TABLET PO (02:18)
[2021-06-15] MEDS: cloNIDine HCL 0.1 MG TABLET PO (02:18)
[2021-06-15] MEDS: Levothyroxine Sodium 50 MCG TABLET PO (06:16)
[2021-06-15 09:14] VITALS: BP 116/76; PULSE 97; RESP 14; TEMP 36.2; O2SAT 96
[2021-06-15 09:29] LABS: Folate 12.5 ng/mL (> or = 4.0); Vitamin B12 200 pg/mL (200-900)
[2021-06-15] MEDS: Sulfamethox/Trimeth 800/160 TABLET 1 TAB PO (09:29)
[2021-06-15] MEDS: Multivitamin TABLET 1 TAB PO (09:29)
[2021-06-15] MEDS: Aspirin Enteric Coated 81 MG TABLET.DR PO (09:30)
[2021-06-15] MEDS: Clopidogrel Bisulfate 75 MG TABLET PO (09:30)
[2021-06-15] MEDS: Cyanocobalamin (Vitamin B-12) 500 MCG TABLET PO (09:30)
[2021-06-15] MEDS: Buprenorphine/Naloxone 8/2 mg FILM 1 FILM SUBLINGUAL ×2 (09:30→19:48)
[2021-06-15] MEDS: Isosorbide Mononitrate 30 MG TAB.ER.24H PO (09:30)
[2021-06-15] MEDS: risperiDONE 1 MG TABLET PO (09:30)
--- NOTE | 2021-06-15 10:07 | HO.PSYCHPN ---
Subjective Subjective Date of Service: 06/15/21 Reason For Visit: schizoaffective, depressive type,opiod use Interim History: Patient reports that he still feeling suicidal. He also reports that he continues to have auditory hallucinations that he is no good and to take his own life says it is affecting his ability to think straight. Patient agrees to increase Lexapro to 20 mg. He does not know why Zoloft was stopped and Lexapro was started since his last admission. He also is not sure if he needs Risperdal as his auditory hallucinations are typically only present when he is feeling triggered and stressed and resolve once he emotionally stabilizes. Mental Status Exam Mental Status Exam Narrative: Pt is alert and oriented; behavior is cooperative; patient is not in distress; dressed in casual attire with adequate hygiene; mood is described as not good and affect congruent; eye contact appropriate; Speech is normal rate, volume and prosody and not pressured; no psychomotor agitation/retardation present; thought process goal directed but a little tangential; Thought content is on AVH and SI; reports SI; no HI. Reports AH. Patients insight and judgment are impaired. Diagnostics Vital Signs (24Hr): Vital Signs - 24 hr 06/14/21 18:41 06/15/21 09:14 Temperature 97.2 F Pulse Rate 80 97 Respiratory Rate 14 Blood Pressure 116/80 116/76 Pulse Oximetry 96 BMI result Body Mass Index 23.1 Labs Labs: Laboratory Results - last 48 hr 06/13/21 06:59 Vitamin B12 200 Folate 12.5 Medications Medications Current Medications Acetaminophen (Acetaminophen 325 Mg Tablet) 650 mg PO Q6H PRN PRN Reason: Headache/Pain Mild Scale (1-3) Last Admin: 06/13/21 22:30 Dose: 650 mg Documented by: Al Hydroxide/Mg Hydroxide (Magnesium Hydrox/Alum Hydrox 30 Ml Oral.Susp) 30 ml PO Q6H PRN PRN Reason: Heartburn/Nausea Albuterol Sulfate (Albuterol Sulfate 90 Mcg 8 Gm Inhaler) 2 puff INHALE Q4H PRN PRN Reason: Shortness Of Breath Aspirin (Aspirin Enteric Coated 81 Mg Tablet.) 81 mg PO DAILY ON LICENSE OF [facility] Last Admin: 06/15/21 09:30 Dose: 81 mg Documented by: Atorvastatin Calcium (Atorvastatin Calcium 80 Mg Tablet) 80 mg PO BEDTIME ON LICENSE OF [facility] Last Admin: 06/14/21 20:08 Dose: 80 mg Documented by: Benztropine Mesylate (Benztropine Mesylate 1 Mg Tablet) 1 mg PO BEDTIME ON LICENSE OF [facility] Last Admin: 06/14/21 20:09 Dose: 1 mg Documented by: Bictegravir/Emtricitabine/Tenofovir (Bictegrav/Emtricit/Tenofov Ala Tablet) 1 tab PO BEDTIME ON LICENSE OF [facility] Last Admin: 06/14/21 20:09 Dose: 1 tab Documented by: Buprenorphine/Naloxone (Buprenorphine/Naloxone 8/2 Mg Film) 1 film SUBLINGUAL BID ON LICENSE OF [facility] Last Admin: 06/15/21 09:30 Dose: 1 film Documented by: Clonidine HCl (Clonidine Hcl 0.1 Mg Tablet) 0.1 mg PO TID PRN; Protocol PRN Reason: hyperarousal, agitation, anxiety Last Admin: 06/15/21 02:18 Dose: 0.1 mg Documented by: Clopidogrel Bisulfate (Clopidogrel Bisulfate 75 Mg Tablet) 75 mg PO DAILY ON LICENSE OF [facility] Last Admin: 06/15/21 09:30 Dose: 75 mg Documented by: Cyanocobalamin (Cyanocobalamin (Vitamin B-12) 500 Mcg Tablet) 500 mcg PO DAILY ON LICENSE OF [facility] Last Admin: 06/15/21 09:30 Dose: 500 mcg Documented by: Docusate Sodium (Docusate Sodium 100 Mg Capsule) 100 mg PO BEDTIME PRN PRN Reason: constipation Hydroxyzine HCl (Hydroxyzine Hcl 25 Mg Tablet) 25 mg PO Q6H PRN PRN Reason: Anxiety Isosorbide Mononitrate (Isosorbide Mononitrate 30 Mg Tab.Er.24h) 30 mg PO DAILY ON LICENSE OF [facility]; Protocol Last Admin: 06/15/21 09:30 Dose: 30 mg Documented by: Levothyroxine Sodium (Levothyroxine Sodium 50 Mcg Tablet) 50 mcg PO DAILY@0600 ON LICENSE OF [facility] Last Admin: 06/15/21 06:16 Dose: 50 mcg Documented by: Magnesium Hydroxide (Milk Of Magnesia 30 Ml Oral.Susp) 30 ml PO DAILY PRN PRN Reason: Constipation Mirtazapine (Mirtazapine 15 Mg Tablet) 15 mg PO BEDTIME ON LICENSE OF [facility] Last Admin: 06/14/21 20:08 Dose: 15 mg Documented by: Multivitamins/Vitamin C (Multivitamin Tablet) 1 tab PO DAILY ON LICENSE OF [facility] Last Admin: 06/15/21 09:29 Dose: 1 tab Documented by: Nitroglycerin (Nitroglycerin 0.4 Mg Tab.Subl) 0.4 mg SUBLINGUAL Q5M PRN PRN Reason: Chest Pain Ondansetron HCl (Ondansetron Odt 8 Mg Tab.Rapdis) 8 mg TRANSLINGU Q12H PRN PRN Reason: nausea Quetiapine Fumarate (Quetiapine Fumarate 200 Mg Tablet) 200 mg PO BEDTIME ON LICENSE OF [facility] Last Admin: 06/14/21 20:38 Dose: 200 mg Documented by: Quetiapine Fumarate (Quetiapine Fumarate 50 Mg Tablet) 50 mg PO BID PRN PRN Reason: anxiety Risperidone (Risperidone 1 Mg Tablet) 1 mg PO BID ON LICENSE OF [facility] Last Admin: 06/15/21 09:30 Dose: 1 mg Documented by: Trazodone HCl (Trazodone Hcl 50 Mg Tablet) 50 mg PO BEDTIME PRN PRN Reason: Insomnia Last Admin: 06/15/21 02:18 Dose: 50 mg Documented by: Trimethoprim/Sulfamethoxazole (Sulfamethox/Trimeth 800/160 Tablet) 1 tab PO DAILY ON LICENSE OF [facility] Last Admin: 06/15/21 09:29 Dose: 1 tab Documented by: Allergies Allergies Allergy/AdvReac Type Severity Reaction Status Date / Time No Known Allergies Allergy Mild NO REACTION Verified 06/01/20 20:45 Assessment & Plan Assessment & Plan (1) MDD (major depressive disorder), recurrent episode, severe: Status: Acute Code(s): F33.2 - Major depressive disorder, recurrent severe without psychotic features (2) HIV (human immunodeficiency virus infection): Status: Chronic Code(s): B20 - Human immunodeficiency virus [HIV] disease (3) Opioid use disorder, severe, in early remission, on maintenance therapy, dependence: Status: Chronic Code(s): F11.21 - Opioid dependence, in remission Plan 60 year male with HIV, Hep C, opioid use desorder, MDD With mood dysregulation -patient in the past has been diagnosed with schizoaffective disorder, however at his last admission he reported that auditory hallucinations are only when he is feeling emotional and triggered and her not normally present otherwise. For now will leave diagnosis as MDD, severe with psychotic features. / he reports continued auditory hallucinations to hurt himself; positive for SI. Agrees to medication changes (see below) PLAN: CV q15 min checks -RESTART LEXAPRO AND INCREASEd TO 20 MG; patient was on Zoloft at last admission last year however it was discontinued and he was started on Lexapro which he said he was taking up until this admission -continue mirtazapine 15 mg q.h.s.; patient has been tried before on only 1 antidepressant/antipsychotic he and did better when mirtazapine added back on -continue Seroquel 200 mg q.h.s. -will lower Risperdal, and consider discontinuing. Patient was on Risperdal this admission to 0.5 mg b.i.d.; patient is already on an antipsychotic medication and review of past notes at his last admission, his psychotic symptoms fully resolved once his depression and anxiety abated. Will see if patient can tolerate and improve on lowered or discontinued Risperdal in order to avoid polypharmacy and because of risks associated with this medication. Of course will restart if necessary. However, may try to increase or add p.r.n. of Seroquel before adding a 2nd antipsychotic HiV he has been on Bictarvy and should be continued HLD--Lipitir CAD--ASA, Plavis, Lipitor I spent minutes with the patient and/or on the patient floor today, greater than?50% of which was spent counseling/coordinating care. Patient educated on: medication risk/benefits and substance abuse Informed Consent: understands Reason for contiued inpatient stay Substantial Risk for: rapid decompensation
[2021-06-15 16:00] VITALS: PULSE 97
[2021-06-15] MEDS: Escitalopram Oxalate 10 MG TABLET PO (16:18)
[2021-06-15 19:42] VITALS: BP 107/62; PULSE 97
[2021-06-15] MEDS: Mirtazapine 15 MG TABLET PO (19:48)
[2021-06-15] MEDS: Benztropine Mesylate 1 MG TABLET PO (19:48)
[2021-06-15] MEDS: Atorvastatin Calcium 80 MG TABLET PO (19:48)
[2021-06-15] MEDS: risperiDONE 0.5 MG TABLET PO (19:48)
[2021-06-15] MEDS: Bictegrav/Emtricit/Tenofov Ala TABLET 1 TAB PO (19:48)
[2021-06-15] MEDS: QUEtiapine Fumarate 200 MG TABLET PO (19:48)
[2021-06-16] MEDS: Levothyroxine Sodium 50 MCG TABLET PO (05:42)
[2021-06-16 05:46] VITALS: BP 116/56; PULSE 82; RESP 16; TEMP 36.4; O2SAT 98
[2021-06-16] MEDS: Isosorbide Mononitrate 30 MG TAB.ER.24H PO (09:30)
[2021-06-16] MEDS: Clopidogrel Bisulfate 75 MG TABLET PO (09:30)
[2021-06-16] MEDS: Buprenorphine/Naloxone 8/2 mg FILM 1 FILM SUBLINGUAL ×2 (09:30→21:08)
[2021-06-16] MEDS: Cyanocobalamin (Vitamin B-12) 500 MCG TABLET PO (09:30)
[2021-06-16] MEDS: risperiDONE 0.5 MG TABLET PO ×2 (09:30→21:08)
[2021-06-16] MEDS: Sulfamethox/Trimeth 800/160 TABLET 1 TAB PO (09:30)
[2021-06-16] MEDS: Aspirin Enteric Coated 81 MG TABLET.DR PO (09:30)
[2021-06-16] MEDS: Escitalopram Oxalate 20 MG TABLET PO (09:31)
[2021-06-16] MEDS: Multivitamin TABLET 1 TAB PO (09:31)
--- NOTE | 2021-06-16 10:21 | P.PNPSI_ITS ---
Subjective Subjective Date of Service: 06/16/21 Reason For Visit: schizoaffective, depressive type,opiod use Interim History: pt says he's doing much better and that his mood is good. He denies SI and says intermittent SI is also pretty much over with; AH also subsiding and pt says minimal. Pt says he's sleeping well. Supervisor Prep discussed hx of relapse and pt thinks he'd have less cravings if AM dose of Suboxone increased to which writer editor agrees. He also agrees with getting off Risperdal not wanting side-effect risk. Pt says he's feeling he's probably ready for discharge. Mental Status Exam Mental Status Exam Narrative: Pt is alert and oriented; behavior is cooperative; patient is not in distress; dressed in casual attire with adequate hygiene; mood is described as better and affect congruent; eye contact appropriate; Speech is normal rate, volume and prosody and not pressured; no psychomotor agitation/retardation present; thought process goal directed and linear; Thought content is on doing better, feeling ready for discharge; Denies SI or HI; AH he says is minimal, almost gone; Patients insight and judgment are improved and adequate. Diagnostics Vital Signs (24Hr): Vital Signs - 24 hr 06/15/21 19:42 06/16/21 05:46 Temperature 97.6 F Pulse Rate 97 82 Respiratory Rate 16 Blood Pressure 107/62 116/56 L Pulse Oximetry 98 BMI result Body Mass Index 23.1 Labs Labs: Laboratory Results - last 48 hr 06/13/21 06:59 Vitamin B12 200 Folate 12.5 Medications Medications Current Medications Acetaminophen (Acetaminophen 325 Mg Tablet) 650 mg PO Q6H PRN PRN Reason: Headache/Pain Mild Scale (1-3) Last Admin: 06/13/21 22:30 Dose: 650 mg Documented by: Al Hydroxide/Mg Hydroxide (Magnesium Hydrox/Alum Hydrox 30 Ml Oral.Susp) 30 ml PO Q6H PRN PRN Reason: Heartburn/Nausea Albuterol Sulfate (Albuterol Sulfate 90 Mcg 8 Gm Inhaler) 2 puff INHALE Q4H PRN PRN Reason: Shortness Of Breath Aspirin (Aspirin Enteric Coated 81 Mg Tablet.) 81 mg PO DAILY [facility] Last Admin: 06/16/21 09:30 Dose: 81 mg Documented by: Atorvastatin Calcium (Atorvastatin Calcium 80 Mg Tablet) 80 mg PO BEDTIME [facility] Last Admin: 06/15/21 19:48 Dose: 80 mg Documented by: Benztropine Mesylate (Benztropine Mesylate 1 Mg Tablet) 1 mg PO BEDTIME [facility] Last Admin: 06/15/21 19:48 Dose: 1 mg Documented by: Bictegravir/Emtricitabine/Tenofovir (Bictegrav/Emtricit/Tenofov Ala Tablet) 1 tab PO BEDTIME [facility] Last Admin: 06/15/21 19:48 Dose: 1 tab Documented by: Buprenorphine/Naloxone (Buprenorphine/Naloxone 8/2 Mg Film) 1 film SUBLINGUAL BID [facility] Last Admin: 06/16/21 09:30 Dose: 1 film Documented by: Clonidine HCl (Clonidine Hcl 0.1 Mg Tablet) 0.1 mg PO TID PRN; Protocol PRN Reason: hyperarousal, agitation, anxiety Last Admin: 06/15/21 02:18 Dose: 0.1 mg Documented by: Clopidogrel Bisulfate (Clopidogrel Bisulfate 75 Mg Tablet) 75 mg PO DAILY [facility] Last Admin: 06/16/21 09:30 Dose: 75 mg Documented by: Cyanocobalamin (Cyanocobalamin (Vitamin B-12) 500 Mcg Tablet) 500 mcg PO DAILY [facility] Last Admin: 06/16/21 09:30 Dose: 500 mcg Documented by: Cyclobenzaprine HCl (Cyclobenzaprine Hcl 10 Mg Tablet) 10 mg PO TID PRN PRN Reason: muscle aches Docusate Sodium (Docusate Sodium 100 Mg Capsule) 100 mg PO BEDTIME PRN PRN Reason: constipation Escitalopram Oxalate (Escitalopram Oxalate 20 Mg Tablet) 20 mg PO DAILY [facility] Last Admin: 06/16/21 09:31 Dose: 20 mg Documented by: Hydroxyzine HCl (Hydroxyzine Hcl 25 Mg Tablet) 25 mg PO Q6H PRN PRN Reason: Anxiety Isosorbide Mononitrate (Isosorbide Mononitrate 30 Mg Tab.Er.24h) 30 mg PO DAILY [facility]; Protocol Last Admin: 06/16/21 09:30 Dose: 30 mg Documented by: Levothyroxine Sodium (Levothyroxine Sodium 50 Mcg Tablet) 50 mcg PO DAILY@0600 [facility] Last Admin: 06/16/21 05:42 Dose: 50 mcg Documented by: Magnesium Hydroxide (Milk Of Magnesia 30 Ml Oral.Susp) 30 ml PO DAILY PRN PRN Reason: Constipation Mirtazapine (Mirtazapine 15 Mg Tablet) 15 mg PO BEDTIME [facility] Last Admin: 06/15/21 19:48 Dose: 15 mg Documented by: Multivitamins/Vitamin C (Multivitamin Tablet) 1 tab PO DAILY [facility] Last Admin: 06/16/21 09:31 Dose: 1 tab Documented by: Nitroglycerin (Nitroglycerin 0.4 Mg Tab.Subl) 0.4 mg SUBLINGUAL Q5M PRN PRN Reason: Chest Pain Ondansetron HCl (Ondansetron Odt 8 Mg Tab.Rapdis) 8 mg TRANSLINGU Q12H PRN PRN Reason: nausea Quetiapine Fumarate (Quetiapine Fumarate 200 Mg Tablet) 200 mg PO BEDTIME [facility] Last Admin: 06/15/21 19:48 Dose: 200 mg Documented by: Quetiapine Fumarate (Quetiapine Fumarate 50 Mg Tablet) 50 mg PO BID PRN PRN Reason: anxiety Risperidone (Risperidone 0.5 Mg Tablet) 0.5 mg PO BID [facility] Last Admin: 06/16/21 09:30 Dose: 0.5 mg Documented by: Trazodone HCl (Trazodone Hcl 50 Mg Tablet) 50 mg PO BEDTIME PRN PRN Reason: Insomnia Last Admin: 06/15/21 02:18 Dose: 50 mg Documented by: Trimethoprim/Sulfamethoxazole (Sulfamethox/Trimeth 800/160 Tablet) 1 tab PO DAILY [facility] Last Admin: 06/16/21 09:30 Dose: 1 tab Documented by: Allergies Allergies Allergy/AdvReac Type Severity Reaction Status Date / Time No Known Allergies Allergy Mild NO REACTION Verified 06/01/20 20:45 Assessment & Plan Assessment & Plan (1) MDD (major depressive disorder), recurrent episode, severe: Status: Acute Code(s): F33.2 - Major depressive disorder, recurrent severe without psychotic features (2) HIV (human immunodeficiency virus infection): Status: Chronic Code(s): B20 - Human immunodeficiency virus [HIV] disease (3) Opioid use disorder, severe, in early remission, on maintenance therapy, dependence: Status: Chronic Code(s): F11.21 - Opioid dependence, in remission Plan 60 year male with HIV, Hep C, opioid use desorder, MDD With mood dysregulation -patient in the past has been diagnosed with schizoaffective disorder, however at his last admission he reported that auditory hallucinations are only when he is feeling emotional and triggered and her not normally present otherwise. For now will leave diagnosis as MDD, severe with psychotic features. / he reports continued auditory hallucinations to hurt himself; positive for SI. Agrees to medication changes (see below) 5/ pt reports he's doing much better; SI resolved, AH mostly resolved and not bothersome; no HI, sleeping and eating well. Feels ready for discharge. Pt's hospital course very similar to past admissions and pt is back to baseline. Pt is not in imminent risk for harm to self or others. PLAN: CV q15 min checks -increase Suboxone to 12/3 mg in AM for cravings -Continue LEXAPRO 20 MG; patient was on Zoloft at last admission last year however it was discontinued and he was started on Lexapro which he said he was taking up until this admission -continue mirtazapine 15 mg q.h.s.; patient has been tried before on only 1 antidepressant/antipsychotic he and did better when mirtazapine added back on -continue Seroquel 200 mg q.h.s. -DC Risperdal; Patient was started on Risperdal this admission to 0.5 mg b.i.d.; patient is already on an antipsychotic medication and review of past notes at his last admission, his psychotic symptoms fully resolved once his depression and anxiety abated. Will see if patient can tolerate and improve on lowered or discontinued Risperdal in order to avoid polypharmacy and because of risks associated with this medication. Of course will restart if necessary. However, may try to increase or add p.r.n. of Seroquel before adding a 2nd antipsychotic HiV he has been on Bictarvy and should be continued HLD--Lipitir CAD--ASA, Plavis, Lipitor I spent minutes with the patient and/or on the patient floor today, greater than?50% of which was spent counseling/coordinating care. Patient educated on: diagnosis, medication risk/benefits and substance abuse Informed Consent: understands Reason for contiued inpatient stay Substantial Risk for: stable for discharge
[2021-06-16 16:00] VITALS: PULSE 84
[2021-06-16] MEDS: Bictegrav/Emtricit/Tenofov Ala TABLET 1 TAB PO (21:08)
[2021-06-16] MEDS: Mirtazapine 15 MG TABLET PO (21:08)
[2021-06-16] MEDS: Atorvastatin Calcium 80 MG TABLET PO (21:08)
[2021-06-16] MEDS: Benztropine Mesylate 1 MG TABLET PO (21:08)
[2021-06-16] MEDS: QUEtiapine Fumarate 200 MG TABLET PO (21:08)
[2021-06-16 21:14] VITALS: BP 108/66; PULSE 88; TEMP 36.8; O2SAT 97
[2021-06-17] MEDS: Levothyroxine Sodium 50 MCG TABLET PO (06:49)
[2021-06-17 08:00] VITALS: PULSE 85
[2021-06-17] MEDS: Buprenorphine/Naloxone 12/3 mg FILM 1 FILM SUBLINGUAL (08:12)
[2021-06-17] MEDS: Aspirin Enteric Coated 81 MG TABLET.DR PO (08:12)
[2021-06-17] MEDS: Escitalopram Oxalate 20 MG TABLET PO (08:12)
[2021-06-17] MEDS: Cyanocobalamin (Vitamin B-12) 500 MCG TABLET PO (08:12)
[2021-06-17] MEDS: Multivitamin TABLET 1 TAB PO (08:12)
[2021-06-17] MEDS: Isosorbide Mononitrate 30 MG TAB.ER.24H PO (08:12)
[2021-06-17] MEDS: Clopidogrel Bisulfate 75 MG TABLET PO (08:12)
[2021-06-17] MEDS: risperiDONE 0.5 MG TABLET PO (08:12)
[2021-06-17] MEDS: Sulfamethox/Trimeth 800/160 TABLET 1 TAB PO (08:12)
[2021-06-17 08:21] VITALS: BP 110/73; PULSE 85; RESP 14; TEMP 37.1; O2SAT 98
--- NOTE | 2021-06-17 09:58 | PM.PSYDC ---
DS: Providers Provider Date of Service: 06/17/21 Date of admission: 06/12/21 16:30 Date of discharge: 06/17/21 Primary care physician: [facility] Admitting clinician: Margarita Carlos Consults: 06/12/21 18:54 Consult to Hospitalist Routine Consulting Provider: Hospitalist Reason For Exam: new admit from [facility] Attending physician on discharge: Zi Frtiz DS: Diagnosis Discharge Diagnosis (1) MDD (major depressive disorder), recurrent episode, severe: Status: Acute (2) HIV (human immunodeficiency virus infection): Status: Chronic (3) Opioid use disorder, severe, in early remission, on maintenance therapy, dependence: Status: Chronic DS: Medications Discharge Medications Home Medications: Previous Rx's Medication Instructions Recorded albuterol sulfate 90 mcg/actuation 2 puff INHALATION Q4H PRN 30 Days 06/17/21 aerosol inhaler (Ventolin HFA) #6.7 g aspirin 81 mg tablet,delayed 81 mg PO DAILY 30 Days #30 tab 06/17/21 release atorvastatin 80 mg tablet 80 mg PO BEDTIME 30 Days #30 tab 06/17/21 benztropine 1 mg tablet 1 mg PO BEDTIME 30 Days #30 tab 06/17/21 bictegravir 50 mg-emtricitabine 1 tab PO BEDTIME 30 Days #30 tab 06/17/21 200 mg-tenofovir alafenam 25 mg tablet (Biktarvy) buprenorphine 12 mg-naloxone 3 mg 1 film SUBLINGUAL DAILY #0 ea 06/17/21 sublingual film (Suboxone) buprenorphine 8 mg-naloxone 2 mg 1 film SUBLINGUAL BEDTIME #0 ea 06/17/21 sublingual film (Suboxone) clopidogrel 75 mg tablet (Plavix) 75 mg PO DAILY 30 Days #30 tab 06/17/21 cyanocobalamin (vitamin B-12) 500 500 mcg PO DAILY 30 Days #30 tab 06/17/21 mcg tablet escitalopram oxalate 20 mg tablet 20 mg PO DAILY 30 Days #30 tab 06/17/21 isosorbide mononitrate 30 mg 30 mg PO DAILY 30 Days #30 tab 06/17/21 tablet,extended release 24 hr levothyroxine 50 mcg tablet 50 mcg PO DAILY@0600 30 Days #30 06/17/21 tab mirtazapine 15 mg tablet 15 mg PO BEDTIME 30 Days #30 tab 06/17/21 nicotine 21 mg/24 hr daily 21 mg TRANSDERMAL DAILY PRN 28 06/17/21 transdermal patch Days #28 ea nitroglycerin 0.4 mg sublingual 0.4 mg SUBLINGUAL Q5M PRN 30 Days 06/17/21 tablet #7 tab quetiapine 200 mg tablet (Seroquel) 200 mg PO BEDTIME 30 Days #30 tab 06/17/21 sulfamethoxazole 800 1 tab PO DAILY #0 tab 06/17/21 mg-trimethoprim 160 mg tablet Mental Status Exam Mental Status Exam Narrative: Pt is alert and oriented; behavior is cooperative; patient is not in distress; dressed in casual attire with adequate hygiene; mood is described as better and affect congruent; eye contact appropriate; Speech is normal rate, volume and prosody and not pressured; no psychomotor agitation/retardation present; thought process goal directed and linear; Thought content is on doing better, feeling ready for discharge; Denies SI or HI; AH he says is minimal, almost gone; Patients insight and judgment are improved and adequate. Data Data Completed and Pending Completed studies during hospitalization [Text1]: 06/13/21 06/13/21 06/13/21 06:59 06:59 06:59 Estimat Average Glucose 108 Hemoglobin A1c % 5.4 Magnesium 1.8 Triglycerides 897 Cholesterol 214 LDL Cholesterol, Calc TNP HDL Cholesterol 17 D Vitamin B12 200 Folate 12.5 TSH 1.95 Free T4 1.02 DS: Summary Hospital Course Hospital Course: Maynor is a 60 y.o. Male with MDD with psychotic features (has in past carried a dx of schizoaffective disorder though AH are mood congruent) and polysubstance abuse. He self-presented to [facility] ED on 06/11/21 due to depression, SI with a plan to hang himself with a bed sheet or overdose on heroin, and relapsing on substances x 1 week. Pt also reported throwing himself down the stairs yesterday, head CT negative for intracranial hemorrhage. Scan showed generalized cerebral volume loss. Utox positive for opiates, fentanyl, and cocaine. Pt reported he has been adherent on medication. Precipitating factors include that he does not like his snf, does not like his roommate.?Per crisis eval, pt?s snf director reported pt is at risk of being evicted from the rest home due to bringing drugs into the home. He also reports pt has presented to [facility] and [facility] ED in the last week and recently signed himself out of treatment at [facility].? While in the [facility] ED BH pods, pt required ativan after he he was hitting his head, throwing himself against the andre, and stated he was going to flip out if he didn't get a medication for his anxiety. RN also reported that pt tied a bed sheet around his neck and bed sheets were removed from his room. On admission, patient Patient had calmed down; Hereported auditory hallucinations to self-harm and feeling Intermittently suicidal but denied any plans or intent. He was initially isolating in his room, however symptoms soon abated and medication Changes were made such as increasing Suboxone in the morning for cravings, increasing Lexapro; patients risperdal discontinued since already on antipsychotic med that is helpful. . As mentioned above regarding diagnosis, patient in the past has been diagnosed with schizoaffective disorder, however at his last admission he reported that auditory hallucinations are only when he is feeling emotional and triggered and her not normally present otherwise.? For now will leave diagnosis as MDD, severe with psychotic features. Over the next few days, he reported his mood was much better and SI resolved. Auditory hallucinations had also resolved. He said he was sleeping and eating well and felt ready for discharge. This hospital course Is very similar to past admissions and Team agrees that pt is back to baseline. On discharge, pt says he's doing much better and that his mood is good. He denies SI and says intermittent SI is also pretty? much over with; AH also subsiding and pt says minimal. Pt says he's sleeping well. Optical Glass Inspector discussed hx of relapse and pt thinks he'd have less cravings if AM dose of Suboxone increased to which law writer agrees. He also agrees with getting off Risperdal not wanting side-effect risk. Pt says he's feeling he's probably ready for discharge. Given his history, patient remains vulnerable to both relapse and dysregulation and will likely continue to intermittently struggle with both. However These are chronic issues for patient, Of which he is well aware, and will not resolve with further stay on the inpatient unit, but rather with commitment to long-term sobriety and outpatient work. Patient agrees and would like discharge. He Pt is not in imminent risk for harm to self or others And his request for discharge honored. Time spent discussing smoking cessation with patient: 3 to 10 minutes Status at Discharge Functional status at discharge: independent ambulation Overall status at discharge: patient is back to baseline Time Spent with Patient Time attestation: Total time spent providing and/or coordinating discharge services: Time spent: Less than 30 minutes Discharge Plan Discharge Patient Disposition: Home, Self-Care Discharge Diagnosis: Adjustment disorder, with disturbance of mood and conduct, in full remission Referrals: Suboxone: Dr. Jacky Silva [Other] - 06/17/21 11:30 am (This appointment is in-office) Daria Morales NP [Nurse Practitioner] - 07/03/21 10:30 am (in office) Discharge Medications: Continued benztropine 1 mg Tablet 1 mg PO BEDTIME 30 Days Qty: 30 0RF Discontinued albuterol sulfate [Ventolin HFA] 90 mcg/actuation Hfa Aerosol Inhaler 2 puff inhalation Q4H PRN (Reason: Shortness Of Breath) 30 Days Qty: 6.7 0RF Biktarvy 50-200-25 mg Tablet 1 tab PO BEDTIME 30 Days Qty: 30 0RF cyanocobalamin (vitamin B-12) 500 mcg Tablet 500 mcg PO DAILY 30 Days Qty: 30 0RF trazodone 50 mg Tablet 50 mg PO BEDTIME PRN (Reason: Insomnia) isosorbide mononitrate 30 mg Tablet Extended Release 24 Hr 30 mg PO DAILY quetiapine [Seroquel] 200 mg Tablet 200 mg PO BEDTIME clopidogrel [Plavix] 75 mg Tablet 75 mg PO DAILY aspirin 81 mg Tablet,Delayed Release (Dr/Ec) 81 mg PO DAILY nitroglycerin 0.4 mg Tablet, Sublingual 0.4 mg SUBLINGUAL Q5M PRN (Reason: Chest Pain) mirtazapine 15 mg Tablet 15 mg PO BEDTIME sertraline 50 mg Tablet 50 mg PO DAILY buprenorphine-naloxone [Suboxone] 8-2 mg film 1 strip sublingual BID No Action isosorbide mononitrate 30 mg tablet extended release 24 hr 1 tab PO DAILY quetiapine 200 mg tablet 1 tab PO BEDTIME mirtazapine 15 mg tablet 1 tab PO BEDTIME albuterol sulfate [ProAir HFA] 90 mcg/actuation HFA aerosol inhaler 2 puff PO Q4-6H PRN (Reason: Wheezing) buprenorphine-naloxone [Suboxone] 8-2 mg film 1 strip sublingual BID clopidogrel 75 mg tablet 1 tab PO DAILY aspirin 81 mg tablet,delayed release (DR/EC) 1 tab PO DAILY cyanocobalamin (vitamin B-12) 500 mcg tablet 1 tab PO DAILY levothyroxine 50 mcg tablet 1 tab PO DAILY nicotine 21 mg/24 hr patch 24 hour 1 patch topical DAILY nitroglycerin 0.4 mg tablet, sublingual 0.4 mg sublingual PER PKG DIR PRN (Reason: Chest Pain) escitalopram oxalate 20 mg tablet 1 tab PO DAILY atorvastatin 20 mg tablet 1 tab PO DAILY sulfamethoxazole-trimethoprim 800-160 mg tablet 1 tab PO DAILY trazodone 50 mg Tablet 50 mg PO BEDTIME PRN (Reason: Sleep) quetiapine 100 mg Tablet 100 mg PO BEDTIME PRN (Reason: Sleep) Biktarvy 50-200-25 mg Tablet 1 tab PO BEDTIME multivitamin [Daily-[place]] Tablet 1 tab PO DAILY 30 Days Qty: 30 0RF sulfamethoxazole-trimethoprim 800-160 mg Tablet 1 tab PO BID 5 Days Qty: 10 0RF folic acid 1 mg Tablet 1 mg PO DAILY 30 Days Qty: 30 0RF cefuroxime axetil 500 mg Tablet 500 mg PO BID 5 Days Qty: 10 0RF Discharge Orders: Discharge Order (Routine); Ordered 06/17/21 Ordered By: Zi Fritz Diet: regular diet Activity on Discharge: As tolerated Stand Alone Forms: Patient Portal Discharge page, Community Support Care Plan Goals: Maintain mood and safe behaviors Take medications as prescribed Continue to pursue sobriety Practice coping skills Continue with outpatient providers and reach out to them as needed Health Concerns: Mood stability and behaviors Sobriety Other Chronic Health Problems Plan of Treatment: Follow up with your PCP, psychiatric provider and other outpatient providers regarding above concerns Take medications as prescribed Assessment: Risk assessment at time of discharge:? Patient was interviewed prior to discharge and found to be fully oriented and without any SI or HI. Patient has insight and demonstrates good judgment in terms of wanting to pursue treatment. Patient is not in imminent risk of harm to self or others and has a safety plan that includes presenting to the closest ER or calling 911 if feeling unsafe.? Patient has been observed closely by nursing and unit staff throughout admission; patient has not engaged in any behaviors that suggest dangerousness to self or others and has demonstrated appropriate behaviors and impulse control Discharge Date/Time: 06/17/21 11:00
== END 2021-06-17 11:00 | disposition home or self-care (01) | DRG 751 ==
PROVIDERS: Registered Nurse; Admitting Provider Psychiatry & Neurology Psychiatry; Visit Provider Psychiatry & Neurology Psychiatry
DX: F33.2 Major depressive disorder, recurrent severe without psychotic features (principal); R45.851 Suicidal ideations; F11.20 Opioid dependence, uncomplicated; Z21 Asymptomatic human immunodeficiency virus [HIV] infection status; F17.210 Nicotine dependence, cigarettes, uncomplicated; F19.10 Other psychoactive substance abuse, uncomplicated; J45.909 Unspecified asthma, uncomplicated; Z71.6 Tobacco abuse counseling; Z79.82 Long term (current) use of aspirin; Z79.890 Hormone replacement therapy; Z79.899 Other long term (current) drug therapy
CPT/HCPCS: 36415; 80061; 82607; 82746; 83036; 83735; 84439; 84443

== ENCOUNTER 2021-07-08 03:07 | Inpatient (IN) | payer OTHER, SELFPAY ==
--- NOTE | 2021-07-08 | ECG_ITS ---
Test Reason : MED CLEARANCE Blood Pressure : / mmHG Vent. Rate : 078 BPM Atrial Rate : 078 BPM P-R Int : 226 ms QRS Dur : 092 ms QT Int : 392 ms P-R-T Axes : 061 084 058 degrees QTc Int : 446 ms Sinus rhythm with 1st degree A-V block Otherwise normal ECG When compared with ECG of 05-MAR-2021 00:42, No significant change was found Referred By: Linsey Vidales Electronically Signed By:Sudheer Lyon
--- NOTE | ~2021-07-08 | XR_ITS ---
EXAMINATION: XR CHEST CLINICAL INFORMATION: Fever COMPARISON: 01/28/2021 TECHNIQUE: Frontal view of the chest was obtained. FINDINGS: Lung volumes are symmetric. There is patchy airspace opacity towards the left lung base. No right lung consolidation is seen. No evidence of pneumothorax or significant pleural effusion. The cardiomediastinal contour is unremarkable. No acute osseous findings are seen. XR/XR chest 1V IMPRESSION: Patchy left basilar airspace opacity, suspicious for pneumonia in the setting of fever.
[2021-07-08 03:15] VITALS: BP 119/61; PULSE 63; RESP 21; TEMP 38.2; O2SAT 100; BMI 24.3
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
[2021-07-08] MEDS: LORazepam 1 MG TABLET 2 MG PO (03:33)
[2021-07-08] MEDS: Acetaminophen 325 MG TABLET 650 MG PO (03:33)
[2021-07-08 04:08] LABS: COVID-19 Test Negative (Negative)
[2021-07-08 04:13] LABS: Hematocrit 36.1 % (42.0-52.0); Hemoglobin 12.2 g/dl (14.0-18.0); Mean Corpuscular HGB Conc 33.8 g/dl (31.0-36.0); Mean Corpuscular Hemoglobin 30.7 pg (27.0-33.0); Mean Corpuscular Volume 90.7 fL (80.0-98.0); Mean Platelet Volume 10.4 fL (9.4-12.4); Platelet Count 158 X10*3/uL (160-400); Red Blood Count 3.98 X10*6/uL (4.60-5.80); Red Cell Distribution Width 14.6 % (11.0-16.0)
[2021-07-08 04:14] LABS: IDNOW Serial# 16C4AD1C; Influenza A Negative (Negative); Influenza B2 Negative (Negative)
[2021-07-08 04:26] LABS: WBC ABN SCTR FOR CBC 1
[2021-07-08 04:33] LABS: Alanine Aminotransferase 27 U/L (0-40); Albumin Level 3.9 g/dL (3.5-5.0); Alkaline Phosphatase 108 U/L (39-117); Anion Gap 15 (12-20); Aspartate Amino Transferase 42 U/L (5-37); Bilirubin Direct 0.2 mg/dL (0.0-0.5); Bilirubin Total 0.4 mg/dL (0.0-1.0); Blood Urea Nitrogen 25 mg/dL (9-16); Calcium 9.2 mg/dL (8.4-10.2); Carbon Dioxide 21 mmol/L (22-29); Chloride 101 mmol/L (96-108); Creatinine Clr Calc Pharmacy 57.1; Estimated Glomerular Filt Rate 58; Glucose Random 88 mg/dL (60-115); Potassium 4.8 mmol/L (3.3-5.1); Sodium 132 mmol/L (135-145); Total Protein 7.9 g/dL (6.5-8.0)
[2021-07-08 04:47] LABS: Neutrophils Percent Manual 82 % (45-73)
[2021-07-08 04:48] LABS: Lymphocytes Percent Manual 9 % (20-40); Monocytes Percent Manual 9 % (2-11)
[2021-07-08 04:50] LABS: Platelet Estimate NORMAL (NORMAL); Platelet Morphology Comment NORMAL; RBC Morphology NORMAL
[2021-07-08 05:06] LABS: Band Neutrophils Percent 0 % (3-5); Lymphocytes Absolute Manual 0.8 X10*3/uL (1.2-4.9); Monocytes Absolute Manual 0.8 X10*3/uL (0.1-1.2); Neutrophils Absolute Manual 7.2 X10*3/uL (2.0-8.3); White Blood Count 8.8 X10*3/uL (4.8-10.8)
[2021-07-08] MEDS: Sulfamethox/Trimeth 800/160 TABLET 1 TAB PO ×2 (05:28→20:46)
--- NOTE | 2021-07-08 05:31 | PC.NURSE ---
Patient in his bed, restless/loud/disruptive but [id number], med rec completed/pending provider approval, patient has LL pneumonia patient received first dose Bactrim and Ceftin 500 mg, medication compliant, BHN referral completed/confirmed/pending evaluation in the morning, will continue to monitor.
[2021-07-08 05:56] LABS: Appearance Urine HAZY; Color Urine YELLOW; Glucose Urine UA NEG (NEG); Leukocyte Esterase Urine NEG (NEG); Nitrite Urine NEG (NEG); PH 5.5 (5.0-8.0); Specific Gravity - Urine >= 1.030 (1.005-1.025); UACC Culture Trigger NO; Urine Blood 2+ (NEG); Urine Ketones NEG (NEG); Urine Protein NEG (NEG-TRACE)
[2021-07-08 06:14] LABS: Amphetamine Screen Urine Not Detected (Not Detect); Barbiturates, Urine Not Detected (Not Detect); Benzodiazepines Screen Urine Not Detected (Not Detect); Cannabinoid Screen Urine Not Detected (Not Detect); Cocaine Screen Urine POSITIVE (Not Detect); Fentanyl, urine POSITIVE (Not Detect); Opiate Screen Urine POSITIVE (Not Detect); Phencyclidine Screen Urine Not Detected (Not Detect)
[2021-07-08 06:18] VITALS: TEMP 36.7
[2021-07-08 06:28] LABS: WBC Urine 0 /HPF (0-4)
[2021-07-08 06:29] LABS: Mucus Urine 1+ /LPF; Squamous Epithelial Cell Urine TRACE /LPF
--- NOTE | 2021-07-08 07:10 | PC.NURSE ---
patient appears to remain asleep at present respirations are even and unlabored patient appears in no distress
--- NOTE | 2021-07-08 14:22 | PC.NURSE ---
Patient approached for individual OT treatment today. Upon approach patient stated that he wasn't feeling good and needed to lay down . Patient appeared tired, GONZALEZ notified floor staff of current disposition and walked patient back to bed. Patient left with crayons, coloring pages, and word searches for independent use later.
--- NOTE | 2021-07-08 15:32 | PHA.MEDREC ---
Addendum entered by Nuria Buckley [facility] 07/08/21 17:08: Patient is a member of [facility] rest home. I have a copy of the medication list which does not include all his meds. It includes Biktarvy and sertraline 125mg once a day. I called [facility] which endorses biktarvy fills, but not zoloft in last year. 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 Patient is on other non psych meds which are not in his rest home medication record. With the information from both pharmacies, his recent discharge, and the home, this is the list Original Note: Pharmacy Consult ? Medication Reconciliation Pharmacy has completed the medication reconciliation.
[2021-07-08 17:32] VITALS: BP 114/68; PULSE 80; RESP 16; TEMP 36.9; O2SAT 96
[2021-07-08 18:25] VITALS: BP 112/61; PULSE 83; RESP 17; TEMP 36.3; O2SAT 97
[2021-07-08] MEDS: Mirtazapine 15 MG TABLET PO (20:46)
[2021-07-08] MEDS: Benztropine Mesylate 1 MG TABLET PO (20:46)
[2021-07-08] MEDS: QUEtiapine Fumarate 200 MG TABLET PO (20:46)
[2021-07-08] MEDS: Buprenorphine/Naloxone 8/2 mg FILM 1 FILM SUBLINGUAL (20:47)
[2021-07-08] MEDS: Bictegrav/Emtricit/Tenofov Ala TABLET 1 TAB PO (20:53)
[2021-07-09 06:00] VITALS: PULSE 76; TEMP 36.6; O2SAT 98
[2021-07-09] MEDS: Levothyroxine Sodium 50 MCG TABLET PO (06:32)
[2021-07-09 09:04] LABS: Estimated Average Glucose 108 mg/dL; Hemoglobin A1c % 5.4 %
[2021-07-09 09:39] LABS: Cholesterol 169 mg/dL; HDL Cholesterol 18 mg/dL; LDL Cholesterol Calculated 99 mg/dl; Triglycerides 264 mg/dL
[2021-07-09] MEDS: Multivitamin TABLET 1 TAB PO (09:50)
[2021-07-09] MEDS: Cyanocobalamin (Vitamin B-12) 500 MCG TABLET PO (09:51)
[2021-07-09] MEDS: Aspirin Enteric Coated 81 MG TABLET.DR PO (09:51)
[2021-07-09] MEDS: Escitalopram Oxalate 20 MG TABLET PO (09:52)
[2021-07-09] MEDS: Isosorbide Mononitrate 30 MG TAB.ER.24H PO (09:52)
[2021-07-09] MEDS: Sulfamethox/Trimeth 800/160 TABLET 1 TAB PO ×2 (09:52→20:13)
[2021-07-09] MEDS: Clopidogrel Bisulfate 75 MG TABLET PO (09:52)
[2021-07-09] MEDS: Atorvastatin Calcium 20 MG TABLET PO (09:52)
[2021-07-09] MEDS: Buprenorphine/Naloxone 8/2 mg FILM 1 FILM SUBLINGUAL ×2 (09:53→20:12)
[2021-07-09 09:54] LABS: Free T4 (Free Thyroxine) 0.73 ng/dL (0.71-1.85); Thyroid Stimulating Hormone 1.14 uIU/mL (0.32-4.0)
[2021-07-09 10:11] LABS: Folate 9.9 ng/mL (> or = 4.0); Vitamin B12 155 pg/mL (200-900)
--- NOTE | 2021-07-09 10:50 | PC.NURSE ---
Pt reports smoking less than 1 pack a day, currently declining nicotine replacement therapy.
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
[2021-07-09] MEDS: Acetaminophen 325 MG TABLET 650 MG PO (15:49)
[2021-07-09 19:45] VITALS: BP 108/67; PULSE 105; RESP 17; TEMP 36.8; O2SAT 98
[2021-07-09] MEDS: QUEtiapine Fumarate 200 MG TABLET PO (20:13)
[2021-07-09] MEDS: Mirtazapine 15 MG TABLET PO (20:13)
[2021-07-09] MEDS: Benztropine Mesylate 1 MG TABLET PO (20:13)
[2021-07-09] MEDS: Bictegrav/Emtricit/Tenofov Ala TABLET 1 TAB PO (20:13)
[2021-07-10] MEDS: Levothyroxine Sodium 50 MCG TABLET PO (06:41)
[2021-07-10 09:36] VITALS: BP 106/69; PULSE 86; RESP 16; TEMP 36.5; O2SAT 98
[2021-07-10] MEDS: Atorvastatin Calcium 20 MG TABLET PO (09:38)
[2021-07-10] MEDS: Buprenorphine/Naloxone 8/2 mg FILM 1 FILM SUBLINGUAL ×2 (09:38→21:40)
[2021-07-10] MEDS: Multivitamin TABLET 1 TAB PO (09:38)
[2021-07-10] MEDS: Cyanocobalamin (Vitamin B-12) 500 MCG TABLET PO (09:38)
[2021-07-10] MEDS: Escitalopram Oxalate 20 MG TABLET PO (09:38)
[2021-07-10] MEDS: Clopidogrel Bisulfate 75 MG TABLET PO (09:38)
[2021-07-10] MEDS: Aspirin Enteric Coated 81 MG TABLET.DR PO (09:39)
[2021-07-10] MEDS: Sulfamethox/Trimeth 800/160 TABLET 1 TAB PO ×2 (09:39→21:37)
[2021-07-10] MEDS: Folic Acid 1 MG TABLET PO (09:39)
[2021-07-10] MEDS: Isosorbide Mononitrate 30 MG TAB.ER.24H PO (09:39)
--- NOTE | 2021-07-10 13:50 | P.PNPSI_ITS ---
Subjective Subjective Date of Service: 07/10/21 Reason For Visit: Depression,SI Interim History: fewer involuntary mvmts of smaller amplitude; nevertheless, c/o moving too much. speech less mumbled and more intelligible. c/o feeling depressed last night and having thoughts of harming himself. feeling safe on the unit, willing to continue with current regimen and give it time. per staff, 3-day up 07/15. isolative. moderate depression. +SI. eating and sleeping. safe on unit. m ed-compliant. Mental Status Exam Mental Status Exam Narrative: Pt is alert and oriented; behavior is cooperative; patient is not in distress; dressed in casual attire with adequate hygiene; mood is described as improved from admission; eye contact poor; Speech is normal rate, decr loudness and pro sody, incr amount; chorea-like movements but less than yesterday; thought process more linear and logical; no delusions or paranoia expressed; endorses continued SI. no HI/AVH expressed. Diagnostics Vital Signs (24Hr): Vital Signs - 24 hr 07/09/21 19:45 07/10/21 09:36 Temperature 98.3 F 97.7 F Pulse Rate 105 H 86 Respiratory Rate 17 16 Blood Pressure 108/67 106/69 Pulse Oximetry 98 98 BMI result Body Mass Index 24.3 Labs Results: 07/08/21 04:07 07/08/21 04:07 Labs: Laboratory Results - last 48 hr 07/09/21 07/09/21 07/09/21 08:30 08:30 08:30 Estimat Average Glucose 108 Hemoglobin A1c % 5.4 Magnesium 2.0 Triglycerides 264 Cholesterol 169 D LDL Cholesterol, Calc 99 HDL Cholesterol 18 Vitamin B12 155 L Folate 9.9 TSH 1.14 Free T4 0.73 Imaging Radiology Impressions: ITS Impressions Chest X-Ray 07/08/21 04:53 IMPRESSION: Patchy left basilar airspace opacity, suspicious for pneumonia in the setting of fever. Medications Medications Current Medications Acetaminophen (Acetaminophen 325 Mg Tablet) 650 mg PO Q6H PRN PRN Reason: Headache/Pain Mild Scale (1-3) Last Admin: 07/09/21 15:49 Dose: 650 mg Documented by: Al Hydroxide/Mg Hydroxide (Magnesium Hydrox/Alum Hydrox 30 Ml Oral.Susp) 30 ml PO Q6H PRN PRN Reason: Heartburn/Nausea Albuterol Sulfate (Albuterol Sulfate 90 Mcg 8 Gm Inhaler) 2 puff INHALE Q4H PRN PRN Reason: Wheezing Aspirin (Aspirin Enteric Coated 81 Mg Tablet.Dr) 81 mg PO DAILY [facility] Last Admin: 07/10/21 09:39 Dose: 81 mg Documented by: Atorvastatin Calcium (Atorvastatin Calcium 20 Mg Tablet) 20 mg PO DAILY [facility] Last Admin: 07/10/21 09:38 Dose: 20 mg Documented by: Benztropine Mesylate (Benztropine Mesylate 1 Mg Tablet) 1 mg PO BEDTIME [facility] Last Admin: 07/09/21 20:13 Dose: 1 mg Documented by: Bictegravir/Emtricitabine/Tenofovir (Bictegrav/Emtricit/Tenofov Ala Tablet) 1 tab PO BEDTIME [facility] Last Admin: 07/09/21 20:13 Dose: 1 tab Documented by: Buprenorphine/Naloxone (Buprenorphine/Naloxone 8/2 Mg Film) 1 film SUBLINGUAL BID [facility] Last Admin: 07/10/21 09:38 Dose: 1 film Documented by: Cefuroxime Axetil (Cefuroxime Axetil 500 Mg Tablet) 500 mg PO BID [facility] Last Admin: 07/10/21 09:38 Dose: 500 mg Documented by: Clopidogrel Bisulfate (Clopidogrel Bisulfate 75 Mg Tablet) 75 mg PO DAILY [facility] Last Admin: 07/10/21 09:38 Dose: 75 mg Documented by: Cyanocobalamin (Cyanocobalamin (Vitamin B-12) 500 Mcg Tablet) 500 mcg PO DAILY [facility] Last Admin: 07/10/21 09:38 Dose: 500 mcg Documented by: Escitalopram Oxalate (Escitalopram Oxalate 20 Mg Tablet) 20 mg PO DAILY [facility] Last Admin: 07/10/21 09:38 Dose: 20 mg Documented by: Folic Acid (Folic Acid 1 Mg Tablet) 1 mg PO DAILY [facility] Last Admin: 07/10/21 09:39 Dose: 1 mg Documented by: Hydroxyzine HCl (Hydroxyzine Hcl 25 Mg Tablet) 25 mg PO Q6H PRN PRN Reason: Anxiety Isosorbide Mononitrate (Isosorbide Mononitrate 30 Mg Tab.Er.24h) 30 mg PO DAILY [facility]; Protocol Last Admin: 07/10/21 09:39 Dose: 30 mg Documented by: Levothyroxine Sodium (Levothyroxine Sodium 50 Mcg Tablet) 50 mcg PO DAILY@0600 [facility] Last Admin: 07/10/21 06:41 Dose: 50 mcg Documented by: Magnesium Hydroxide (Milk Of Magnesia 30 Ml Oral.Susp) 30 ml PO DAILY PRN PRN Reason: Constipation Mirtazapine (Mirtazapine 15 Mg Tablet) 15 mg PO BEDTIME [facility] Last Admin: 07/09/21 20:13 Dose: 15 mg Documented by: Multivitamins/Vitamin C (Multivitamin Tablet) 1 tab PO DAILY [facility] Last Admin: 07/10/21 09:38 Dose: 1 tab Documented by: Nicotine (Nicotine 21 Mg Patch.Td24) 21 mg TRANSDERMA DAILY [facility] Last Admin: 07/10/21 09:40 Dose: Not Given Documented by: Nitroglycerin (Nitroglycerin 0.4 Mg Tab.Subl) 0.4 mg SUBLINGUAL Q5M PRN PRN Reason: Chest Pain Quetiapine Fumarate (Quetiapine Fumarate 200 Mg Tablet) 200 mg PO BEDTIME [facility] Last Admin: 07/09/21 20:13 Dose: 200 mg Documented by: Quetiapine Fumarate (Quetiapine Fumarate 100 Mg Tablet) 100 mg PO BEDTIME PRN PRN Reason: Sleep Trazodone HCl (Trazodone Hcl 50 Mg Tablet) 50 mg PO BEDTIME PRN PRN Reason: Sleep Trimethoprim/Sulfamethoxazole (Sulfamethox/Trimeth 800/160 Tablet) 1 tab PO BID [facility] Last Admin: 07/10/21 09:39 Dose: 1 tab Documented by: Allergies Allergies Allergy/AdvReac Type Severity Reaction Status Date / Time No Known Allergies Allergy Mild NO REACTION Verified 06/01/20 20:45 Assessment & Plan Assessment & Plan (1) Schizoaffective disorder, depressive type: Status: Acute Code(s): F25.1 - Schizoaffective disorder, depressive type (2) Cocaine use disorder, moderate, dependence: Status: Acute Code(s): F14.20 - Cocaine dependence, uncomplicated (3) Moderate opioid use disorder: Status: Acute Code(s): F11.20 - Opioid dependence, uncomplicated (4) 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 allow detox from cocaine and opiates (other than prescribed). follow movement disorder. improving as of 07/10. monitor for improvement in psychiatric Sx. dispo planning. B12 and folate for B12 deficiency. antiBx for pneumonia. I spent __20____ minutes with the patient and/or on the patient floor today, greater than?50% of which was spent counseling/coordinating care. Reason for contiued inpatient stay Substantial Risk for: harm to self, inability to function and rapid de compensation
[2021-07-10 20:04] VITALS: BP 120/58; PULSE 99; RESP 16; TEMP 36.8; O2SAT 94
[2021-07-10] MEDS: Mirtazapine 15 MG TABLET PO (21:37)
[2021-07-10] MEDS: QUEtiapine Fumarate 200 MG TABLET PO (21:38)
[2021-07-10] MEDS: Bictegrav/Emtricit/Tenofov Ala TABLET 1 TAB PO (21:38)
[2021-07-10] MEDS: Benztropine Mesylate 1 MG TABLET PO (21:38)
[2021-07-11 08:45] VITALS: BP 99/64; PULSE 79; RESP 16; TEMP 36.5; O2SAT 95
[2021-07-11] MEDS: Clopidogrel Bisulfate 75 MG TABLET PO (09:01)
[2021-07-11] MEDS: Aspirin Enteric Coated 81 MG TABLET.DR PO (09:01)
[2021-07-11] MEDS: Cyanocobalamin (Vitamin B-12) 500 MCG TABLET PO (09:01)
[2021-07-11] MEDS: Multivitamin TABLET 1 TAB PO (09:01)
[2021-07-11] MEDS: Isosorbide Mononitrate 30 MG TAB.ER.24H PO (09:02)
[2021-07-11] MEDS: Levothyroxine Sodium 50 MCG TABLET PO (09:02)
[2021-07-11] MEDS: Atorvastatin Calcium 20 MG TABLET PO (09:02)
[2021-07-11] MEDS: Folic Acid 1 MG TABLET PO (09:02)
[2021-07-11] MEDS: Escitalopram Oxalate 20 MG TABLET PO (09:02)
[2021-07-11] MEDS: Buprenorphine/Naloxone 8/2 mg FILM 1 FILM SUBLINGUAL ×2 (09:02→21:07)
[2021-07-11] MEDS: Sulfamethox/Trimeth 800/160 TABLET 1 TAB PO ×2 (09:14→21:07)
--- NOTE | 2021-07-11 11:58 | P.PNPSI_ITS ---
Subjective Subjective Date of Service: 07/11/21 Reason For Visit: Depression,SI Subjective Notes: Conditional Voluntary Interim History: The nursing staff reported the patient has been compliant with his medications, he denies auditory hallucinations. On admission he complained of auditory hallucinations commanding to kill himself. On interview the patient reports that he feels very tired and he feels anxious at times. No safety concerns at this moment. Medication Compliance: Yes Side effects from medications: No Attending Groups: Intermittent Review of Systems Acute medical concerns: No Medical Review of Systems: unchanged Mental Status Exam Mental Status Exam Patient Appearance: Well Grooomed Patient Orientation: Person and Situation Level of Consciousness: Awake Patient Behavior: Cooperative Mood Description: Withdrawn Affect Description: Constricted Patient Cognition Impaired: No Ability to Follow Directions: Fair Speech Pattern: Clear Hallucinations: None Delusions: Not Present Thought Process: Distracted and Evasive Thought Content: positive for [place] and positive for Poverty of Content Judgement: Fair Diagnostics Vital Signs (24Hr): Vital Signs - 24 hr 07/10/21 20:04 Temperature 98.2 F Pulse Rate 99 Respiratory Rate 16 Blood Pressure 120/58 L Pulse Oximetry 94 BMI result Body Mass Index 24.3 Labs Results: 07/08/21 04:07 07/08/21 04:07 Imaging Radiology Impressions: ITS Impressions Chest X-Ray 07/08/21 04:53 IMPRESSION: Patchy left basilar airspace opacity, suspicious for pneumonia in the setting of fever. Medications Medications Current Medications Acetaminophen (Acetaminophen 325 Mg Tablet) 650 mg PO Q6H PRN PRN Reason: Headache/Pain Mild Scale (1-3) Last Admin: 07/09/21 15:49 Dose: 650 mg Documented by: Al Hydroxide/Mg Hydroxide (Magnesium Hydrox/Alum Hydrox 30 Ml Oral.Susp) 30 ml PO Q6H PRN PRN Reason: Heartburn/Nausea Albuterol Sulfate (Albuterol Sulfate 90 Mcg 8 Gm Inhaler) 2 puff INHALE Q4H PRN PRN Reason: Wheezing Aspirin (Aspirin Enteric Coated 81 Mg Tablet.) 81 mg PO DAILY [facility] Last Admin: 07/11/21 09:01 Dose: 81 mg Documented by: Atorvastatin Calcium (Atorvastatin Calcium 20 Mg Tablet) 20 mg PO DAILY [facility] Last Admin: 07/11/21 09:02 Dose: 20 mg Documented by: Benztropine Mesylate (Benztropine Mesylate 1 Mg Tablet) 1 mg PO BEDTIME [facility] Last Admin: 07/10/21 21:38 Dose: 1 mg Documented by: Bictegravir/Emtricitabine/Tenofovir (Bictegrav/Emtricit/Tenofov Ala Tablet) 1 tab PO BEDTIME [facility] Last Admin: 07/10/21 21:38 Dose: 1 tab Documented by: Buprenorphine/Naloxone (Buprenorphine/Naloxone 8/2 Mg Film) 1 film SUBLINGUAL BID [facility] Last Admin: 07/11/21 09:02 Dose: 1 film Documented by: Cefuroxime Axetil (Cefuroxime Axetil 500 Mg Tablet) 500 mg PO BID [facility] Last Admin: 07/11/21 09:02 Dose: 500 mg Documented by: Clopidogrel Bisulfate (Clopidogrel Bisulfate 75 Mg Tablet) 75 mg PO DAILY [facility] Last Admin: 07/11/21 09:01 Dose: 75 mg Documented by: Cyanocobalamin (Cyanocobalamin (Vitamin B-12) 500 Mcg Tablet) 500 mcg PO DAILY [facility] Last Admin: 07/11/21 09:01 Dose: 500 mcg Documented by: Escitalopram Oxalate (Escitalopram Oxalate 20 Mg Tablet) 20 mg PO DAILY [facility] Last Admin: 07/11/21 09:02 Dose: 20 mg Documented by: Folic Acid (Folic Acid 1 Mg Tablet) 1 mg PO DAILY [facility] Last Admin: 07/11/21 09:02 Dose: 1 mg Documented by: Hydroxyzine HCl (Hydroxyzine Hcl 25 Mg Tablet) 25 mg PO Q6H PRN PRN Reason: Anxiety Isosorbide Mononitrate (Isosorbide Mononitrate 30 Mg Tab.Er.24h) 30 mg PO DAILY [facility]; Protocol Last Admin: 07/11/21 09:02 Dose: 30 mg Documented by: Levothyroxine Sodium (Levothyroxine Sodium 50 Mcg Tablet) 50 mcg PO DAILY@0600 [facility] Last Admin: 07/11/21 09:02 Dose: 50 mcg Documented by: Magnesium Hydroxide (Milk Of Magnesia 30 Ml Oral.Susp) 30 ml PO DAILY PRN PRN Reason: Constipation Mirtazapine (Mirtazapine 15 Mg Tablet) 15 mg PO BEDTIME [facility] Last Admin: 07/10/21 21:37 Dose: 15 mg Documented by: Multivitamins/Vitamin C (Multivitamin Tablet) 1 tab PO DAILY [facility] Last Admin: 07/11/21 09:01 Dose: 1 tab Documented by: Nicotine (Nicotine 21 Mg Patch.Td24) 21 mg TRANSDERMA DAILY [facility] Last Admin: 07/11/21 09:03 Dose: Not Given Documented by: Nitroglycerin (Nitroglycerin 0.4 Mg Tab.Subl) 0.4 mg SUBLINGUAL Q5M PRN PRN Reason: Chest Pain Quetiapine Fumarate (Quetiapine Fumarate 200 Mg Tablet) 200 mg PO BEDTIME [facility] Last Admin: 07/10/21 21:38 Dose: 200 mg Documented by: Quetiapine Fumarate (Quetiapine Fumarate 100 Mg Tablet) 100 mg PO BEDTIME PRN PRN Reason: Sleep Trazodone HCl (Trazodone Hcl 50 Mg Tablet) 50 mg PO BEDTIME PRN PRN Reason: Sleep Trimethoprim/Sulfamethoxazole (Sulfamethox/Trimeth 800/160 Tablet) 1 tab PO BID [facility] Last Admin: 07/11/21 09:14 Dose: 1 tab Documented by: Allergies Allergies Allergy/AdvReac Type Severity Reaction Status Date / Time No Known Allergies Allergy Mild NO REACTION Verified 06/01/20 20:45 Assessment & Plan Assessment & Plan (1) Schizoaffective disorder, depressive type: Status: Acute Code(s): F25.1 - Schizoaffective disorder, depressive type (2) Cocaine use disorder, moderate, dependence: Status: Acute Code(s): F14.20 - Cocaine dependence, uncomplicated (3) Moderate opioid use disorder: Status: Acute Code(s): F11.20 - Opioid dependence, uncomplicated (4) 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 allow detox from cocaine and opiates (other than prescribed). follow movement disorder. improving as of 07/10. monitor for improvement in psychiatric Sx. dispo planning. B12 and folate for B12 deficiency. antiBx for pneumonia. I spent ___20___ minutes with the patient and/or on the patient floor today, greater than?50% of which was spent counseling/coordinating care. Reason for contiued inpatient stay Substantial Risk for: inability to function, rapid decompensation and med/psych decompensation
[2021-07-11 19:36] VITALS: BP 111/60; PULSE 88; RESP 20; TEMP 36.4; O2SAT 94
[2021-07-11] MEDS: Bictegrav/Emtricit/Tenofov Ala TABLET 1 TAB PO (21:06)
[2021-07-11] MEDS: Mirtazapine 15 MG TABLET PO (21:06)
[2021-07-11] MEDS: Benztropine Mesylate 1 MG TABLET PO (21:06)
[2021-07-11] MEDS: QUEtiapine Fumarate 200 MG TABLET PO (21:06)
[2021-07-12] MEDS: hydrOXYzine HCL 25 MG TABLET PO (04:31)
[2021-07-12 08:00] VITALS: BP 101/60; PULSE 78; RESP 16; TEMP 36.3; O2SAT 97
[2021-07-12] MEDS: Cyanocobalamin (Vitamin B-12) 500 MCG TABLET PO (09:11)
[2021-07-12] MEDS: Aspirin Enteric Coated 81 MG TABLET.DR PO (09:11)
[2021-07-12] MEDS: Isosorbide Mononitrate 30 MG TAB.ER.24H PO (09:12)
[2021-07-12] MEDS: Atorvastatin Calcium 20 MG TABLET PO (09:12)
[2021-07-12] MEDS: Sulfamethox/Trimeth 800/160 TABLET 1 TAB PO ×2 (09:12→21:12)
[2021-07-12] MEDS: Multivitamin TABLET 1 TAB PO (09:12)
[2021-07-12] MEDS: Levothyroxine Sodium 50 MCG TABLET PO (09:12)
[2021-07-12] MEDS: Folic Acid 1 MG TABLET PO (09:12)
[2021-07-12] MEDS: Buprenorphine/Naloxone 8/2 mg FILM 1 FILM SUBLINGUAL ×2 (09:12→21:12)
[2021-07-12] MEDS: Clopidogrel Bisulfate 75 MG TABLET PO (09:12)
[2021-07-12] MEDS: Escitalopram Oxalate 20 MG TABLET PO (09:12)
--- NOTE | 2021-07-12 13:27 | HO.PSYCHPN ---
Subjective Subjective Date of Service: 07/12/21 Reason For Visit: Depression,SI Subjective Notes: Conditional Voluntary Interim History: The nursing staff reported that he wanted to be discharged she is in a 3 day notice. He stated he is doing fine he denies behavior disturbances. The patient was seen watching TV and social with peers. On interview he denies new symptoms he states that he is doing fine. Mental Status Exam Mental Status Exam Patient Appearance: Appropriate Patient Orientation: Person and Situation Level of Consciousness: Awake Patient Behavior: Cooperative Mood Description: Withdrawn Affect Description: Constricted Patient Cognition Impaired: No Ability to Follow Directions: Good Speech Pattern: Clear Hallucinations: None Delusions: Not Present Thought Process: Distracted Thought Content: positive for [place] and positive for Poverty of Content Judgement: Fair Diagnostics Vital Signs (24Hr): Vital Signs - 24 hr 07/11/21 19:36 07/12/21 08:00 Temperature 97.6 F 97.4 F Pulse Rate 88 78 Respiratory Rate 20 16 Blood Pressure 111/60 101/60 Pulse Oximetry 94 97 BMI result Body Mass Index 24.3 Labs Results: 07/08/21 04:07 07/08/21 04:07 Imaging Radiology Impressions: ITS Impressions Chest X-Ray 07/08/21 04:53 IMPRESSION: Patchy left basilar airspace opacity, suspicious for pneumonia in the setting of fever. Medications Medications Current Medications Acetaminophen (Acetaminophen 325 Mg Tablet) 650 mg PO Q6H PRN PRN Reason: Headache/Pain Mild Scale (1-3) Last Admin: 07/09/21 15:49 Dose: 650 mg Documented by: Al Hydroxide/Mg Hydroxide (Magnesium Hydrox/Alum Hydrox 30 Ml Oral.Susp) 30 ml PO Q6H PRN PRN Reason: Heartburn/Nausea Albuterol Sulfate (Albuterol Sulfate 90 Mcg 8 Gm Inhaler) 2 puff INHALE Q4H PRN PRN Reason: Wheezing Aspirin (Aspirin Enteric Coated 81 Mg Tablet.) 81 mg PO DAILY [facility] Last Admin: 07/12/21 09:11 Dose: 81 mg Documented by: Atorvastatin Calcium (Atorvastatin Calcium 20 Mg Tablet) 20 mg PO DAILY [facility] Last Admin: 07/12/21 09:12 Dose: 20 mg Documented by: Benztropine Mesylate (Benztropine Mesylate 1 Mg Tablet) 1 mg PO BEDTIME [facility] Last Admin: 07/11/21 21:06 Dose: 1 mg Documented by: Bictegravir/Emtricitabine/Tenofovir (Bictegrav/Emtricit/Tenofov Ala Tablet) 1 tab PO BEDTIME [facility] Last Admin: 07/11/21 21:06 Dose: 1 tab Documented by: Buprenorphine/Naloxone (Buprenorphine/Naloxone 8/2 Mg Film) 1 film SUBLINGUAL BID [facility] Last Admin: 07/12/21 09:12 Dose: 1 film Documented by: Cefuroxime Axetil (Cefuroxime Axetil 500 Mg Tablet) 500 mg PO BID [facility] Last Admin: 07/12/21 09:12 Dose: 500 mg Documented by: Clopidogrel Bisulfate (Clopidogrel Bisulfate 75 Mg Tablet) 75 mg PO DAILY [facility] Last Admin: 07/12/21 09:12 Dose: 75 mg Documented by: Cyanocobalamin (Cyanocobalamin (Vitamin B-12) 500 Mcg Tablet) 500 mcg PO DAILY [facility] Last Admin: 07/12/21 09:11 Dose: 500 mcg Documented by: Escitalopram Oxalate (Escitalopram Oxalate 20 Mg Tablet) 20 mg PO DAILY [facility] Last Admin: 07/12/21 09:12 Dose: 20 mg Documented by: Folic Acid (Folic Acid 1 Mg Tablet) 1 mg PO DAILY [facility] Last Admin: 07/12/21 09:12 Dose: 1 mg Documented by: Hydroxyzine HCl (Hydroxyzine Hcl 25 Mg Tablet) 25 mg PO Q6H PRN PRN Reason: Anxiety Last Admin: 07/12/21 04:31 Dose: 25 mg Documented by: Isosorbide Mononitrate (Isosorbide Mononitrate 30 Mg Tab.Er.24h) 30 mg PO DAILY [facility]; Protocol Last Admin: 07/12/21 09:12 Dose: 30 mg Documented by: Levothyroxine Sodium (Levothyroxine Sodium 50 Mcg Tablet) 50 mcg PO DAILY@0600 [facility] Last Admin: 07/12/21 09:12 Dose: 50 mcg Documented by: Magnesium Hydroxide (Milk Of Magnesia 30 Ml Oral.Susp) 30 ml PO DAILY PRN PRN Reason: Constipation Mirtazapine (Mirtazapine 15 Mg Tablet) 15 mg PO BEDTIME [facility] Last Admin: 07/11/21 21:06 Dose: 15 mg Documented by: Multivitamins/Vitamin C (Multivitamin Tablet) 1 tab PO DAILY [facility] Last Admin: 07/12/21 09:12 Dose: 1 tab Documented by: Nicotine (Nicotine 21 Mg Patch.Td24) 21 mg TRANSDERMA DAILY [facility] Last Admin: 07/12/21 09:13 Dose: Not Given Documented by: Nitroglycerin (Nitroglycerin 0.4 Mg Tab.Subl) 0.4 mg SUBLINGUAL Q5M PRN PRN Reason: Chest Pain Quetiapine Fumarate (Quetiapine Fumarate 200 Mg Tablet) 200 mg PO BEDTIME [facility] Last Admin: 07/11/21 21:06 Dose: 200 mg Documented by: Quetiapine Fumarate (Quetiapine Fumarate 100 Mg Tablet) 100 mg PO BEDTIME PRN PRN Reason: Sleep Trazodone HCl (Trazodone Hcl 50 Mg Tablet) 50 mg PO BEDTIME PRN PRN Reason: Sleep Trimethoprim/Sulfamethoxazole (Sulfamethox/Trimeth 800/160 Tablet) 1 tab PO BID [facility] Last Admin: 07/12/21 09:12 Dose: 1 tab Documented by: Allergies Allergies Allergy/AdvReac Type Severity Reaction Status Date / Time No Known Allergies Allergy Mild NO REACTION Verified 06/01/20 20:45 Assessment & Plan Assessment & Plan (1) Schizoaffective disorder, depressive type: Status: Acute Code(s): F25.1 - Schizoaffective disorder, depressive type (2) Cocaine use disorder, moderate, dependence: Status: Acute Code(s): F14.20 - Cocaine dependence, uncomplicated (3) Moderate opioid use disorder: Status: Acute Code(s): F11.20 - Opioid dependence, uncomplicated (4) 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 allow detox from cocaine and opiates (other than prescribed). follow movement disorder. improving as of 07/10. monitor for improvement in psychiatric Sx. dispo planning. B12 and folate for B12 deficiency. antiBx for pneumonia. I spent ___20___ minutes with the patient and/or on the patient floor today, greater than?50% of which was spent counseling/coordinating care. Reason for contiued inpatient stay Substantial Risk for: inability to function, rapid decompensation and med/psych decompensation
[2021-07-12] MEDS: QUEtiapine Fumarate 200 MG TABLET PO (21:12)
[2021-07-12] MEDS: Bictegrav/Emtricit/Tenofov Ala TABLET 1 TAB PO (21:12)
[2021-07-12] MEDS: Benztropine Mesylate 1 MG TABLET PO (21:12)
[2021-07-12] MEDS: Mirtazapine 15 MG TABLET PO (21:12)
[2021-07-12 21:16] VITALS: BP 106/67; PULSE 87; RESP 18; TEMP 36.7; O2SAT 95
[2021-07-13] MEDS: hydrOXYzine HCL 25 MG TABLET PO (05:08)
[2021-07-13] MEDS: Acetaminophen 325 MG TABLET 650 MG PO ×2 (05:08→18:15)
[2021-07-13] MEDS: Levothyroxine Sodium 50 MCG TABLET PO (05:08)
[2021-07-13] MEDS: Atorvastatin Calcium 20 MG TABLET PO (08:49)
[2021-07-13] MEDS: Isosorbide Mononitrate 30 MG TAB.ER.24H PO (08:49)
[2021-07-13] MEDS: Cyanocobalamin (Vitamin B-12) 500 MCG TABLET PO (08:49)
[2021-07-13] MEDS: Folic Acid 1 MG TABLET PO (08:49)
[2021-07-13] MEDS: Clopidogrel Bisulfate 75 MG TABLET PO (08:49)
[2021-07-13] MEDS: Escitalopram Oxalate 20 MG TABLET PO (08:49)
[2021-07-13] MEDS: Sulfamethox/Trimeth 800/160 TABLET 1 TAB PO ×2 (08:49→20:59)
[2021-07-13] MEDS: Aspirin Enteric Coated 81 MG TABLET.DR PO (08:49)
[2021-07-13] MEDS: Multivitamin TABLET 1 TAB PO (08:50)
[2021-07-13] MEDS: Buprenorphine/Naloxone 8/2 mg FILM 1 FILM SUBLINGUAL ×2 (08:50→20:59)
[2021-07-13 08:54] VITALS: BP 108/62; PULSE 66; RESP 18; TEMP 36.3; O2SAT 96
--- NOTE | 2021-07-13 11:12 | HO.PSYCHPN ---
Subjective Subjective Date of Service: 07/13/21 Reason For Visit: Depression,SI Subjective Notes: Conditional Voluntary Interim History: The nursing staff reported the patient did not have any behavioral issues has medication compliant and he was seen watching TV in the afternoon. On interview the patient was in his bed sleeping profoundly, he denied new symptoms. Mental Status Exam Mental Status Exam Patient Appearance: Well Grooomed Patient Orientation: Person Level of Consciousness: Awake Patient Behavior: Cooperative Mood Description: Withdrawn Affect Description: Constricted Ability to Follow Directions: Good Speech Pattern: Clear Hallucinations: None Delusions: Paranoid Ideation Judgement: Fair Diagnostics Vital Signs (24Hr): Vital Signs - 24 hr 07/12/21 21:16 07/13/21 08:54 Temperature 98.1 F 97.4 F Pulse Rate 87 66 Respiratory Rate 18 18 Blood Pressure 106/67 108/62 Pulse Oximetry 95 96 BMI result Body Mass Index 24.3 Labs Results: 07/08/21 04:07 07/08/21 04:07 Imaging Radiology Impressions: ITS Impressions Chest X-Ray 07/08/21 04:53 IMPRESSION: Patchy left basilar airspace opacity, suspicious for pneumonia in the setting of fever. Medications Medications Current Medications Acetaminophen (Acetaminophen 325 Mg Tablet) 650 mg PO Q6H PRN PRN Reason: Headache/Pain Mild Scale (1-3) Last Admin: 07/13/21 05:08 Dose: 650 mg Documented by: Al Hydroxide/Mg Hydroxide (Magnesium Hydrox/Alum Hydrox 30 Ml Oral.Susp) 30 ml PO Q6H PRN PRN Reason: Heartburn/Nausea Albuterol Sulfate (Albuterol Sulfate 90 Mcg 8 Gm Inhaler) 2 puff INHALE Q4H PRN PRN Reason: Wheezing Aspirin (Aspirin Enteric Coated 81 Mg Tablet.) 81 mg PO DAILY [facility] [place] Last Admin: 07/13/21 08:49 Dose: 81 mg Documented by: Atorvastatin Calcium (Atorvastatin Calcium 20 Mg Tablet) 20 mg PO DAILY [facility] [place] Last Admin: 07/13/21 08:49 Dose: 20 mg Documented by: Benztropine Mesylate (Benztropine Mesylate 1 Mg Tablet) 1 mg PO BEDTIME [facility] [place] Last Admin: 07/12/21 21:12 Dose: 1 mg Documented by: Bictegravir/Emtricitabine/Tenofovir (Bictegrav/Emtricit/Tenofov Ala Tablet) 1 tab PO BEDTIME [facility] [place] Last Admin: 07/12/21 21:12 Dose: 1 tab Documented by: Buprenorphine/Naloxone (Buprenorphine/Naloxone 8/2 Mg Film) 1 film SUBLINGUAL BID [facility] [place] Last Admin: 07/13/21 08:50 Dose: 1 film Documented by: Cefuroxime Axetil (Cefuroxime Axetil 500 Mg Tablet) 500 mg PO BID [facility] [place] Last Admin: 07/13/21 08:49 Dose: 500 mg Documented by: Clopidogrel Bisulfate (Clopidogrel Bisulfate 75 Mg Tablet) 75 mg PO DAILY [facility] [place] Last Admin: 07/13/21 08:49 Dose: 75 mg Documented by: Cyanocobalamin (Cyanocobalamin (Vitamin B-12) 500 Mcg Tablet) 500 mcg PO DAILY [facility] [place] Last Admin: 07/13/21 08:49 Dose: 500 mcg Documented by: Escitalopram Oxalate (Escitalopram Oxalate 20 Mg Tablet) 20 mg PO DAILY [facility] [place] Last Admin: 07/13/21 08:49 Dose: 20 mg Documented by: Folic Acid (Folic Acid 1 Mg Tablet) 1 mg PO DAILY [facility] [place] Last Admin: 07/13/21 08:49 Dose: 1 mg Documented by: Hydroxyzine HCl (Hydroxyzine Hcl 25 Mg Tablet) 25 mg PO Q6H PRN PRN Reason: Anxiety Last Admin: 07/13/21 05:08 Dose: 25 mg Documented by: Isosorbide Mononitrate (Isosorbide Mononitrate 30 Mg Tab.Er.24h) 30 mg PO DAILY [facility] [place]; Protocol Last Admin: 07/13/21 08:49 Dose: 30 mg Documented by: Levothyroxine Sodium (Levothyroxine Sodium 50 Mcg Tablet) 50 mcg PO DAILY@0600 [facility] [place] Last Admin: 07/13/21 05:08 Dose: 50 mcg Documented by: Magnesium Hydroxide (Milk Of Magnesia 30 Ml Oral.Susp) 30 ml PO DAILY PRN PRN Reason: Constipation Mirtazapine (Mirtazapine 15 Mg Tablet) 15 mg PO BEDTIME [facility] [place] Last Admin: 07/12/21 21:12 Dose: 15 mg Documented by: Multivitamins/Vitamin C (Multivitamin Tablet) 1 tab PO DAILY [facility] [place] Last Admin: 07/13/21 08:50 Dose: 1 tab Documented by: Nicotine (Nicotine 21 Mg Patch.Td24) 21 mg TRANSDERMA DAILY [facility] [place] Last Admin: 07/13/21 08:53 Dose: Not Given Documented by: Nitroglycerin (Nitroglycerin 0.4 Mg Tab.Subl) 0.4 mg SUBLINGUAL Q5M PRN PRN Reason: Chest Pain Quetiapine Fumarate (Quetiapine Fumarate 200 Mg Tablet) 200 mg PO BEDTIME [facility] [place] Last Admin: 07/12/21 21:12 Dose: 200 mg Documented by: Quetiapine Fumarate (Quetiapine Fumarate 100 Mg Tablet) 100 mg PO BEDTIME PRN PRN Reason: Sleep Trazodone HCl (Trazodone Hcl 50 Mg Tablet) 50 mg PO BEDTIME PRN PRN Reason: Sleep Trimethoprim/Sulfamethoxazole (Sulfamethox/Trimeth 800/160 Tablet) 1 tab PO BID [facility] [place] Last Admin: 07/13/21 08:49 Dose: 1 tab Documented by: Allergies Allergies Allergy/AdvReac Type Severity Reaction Status Date / Time No Known Allergies Allergy Mild NO REACTION Verified 06/01/20 20:45 Assessment & Plan Assessment & Plan (1) Schizoaffective disorder, depressive type: Status: Acute Code(s): F25.1 - Schizoaffective disorder, depressive type (2) Cocaine use disorder, moderate, dependence: Status: Acute Code(s): F14.20 - Cocaine dependence, uncomplicated (3) Moderate opioid use disorder: Status: Acute Code(s): F11.20 - Opioid dependence, uncomplicated (4) 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 allow detox from cocaine and opiates (other than prescribed). follow movement disorder. improving as of 07/10. monitor for improvement in psychiatric Sx. dispo planning. B12 and folate for B12 deficiency. antiBx for pneumonia. I spent __20____ minutes with the patient and/or on the patient floor today, greater than?50% of which was spent counseling/coordinating care. Reason for contiued inpatient stay Substantial Risk for: inability to function, rapid decompensation and med/psych decompensation
[2021-07-13 20:08] VITALS: BP 112/58; PULSE 75; RESP 18; TEMP 36.4; O2SAT 96
[2021-07-13] MEDS: QUEtiapine Fumarate 200 MG TABLET PO (20:58)
[2021-07-13] MEDS: Mirtazapine 15 MG TABLET PO (20:59)
[2021-07-13] MEDS: Benztropine Mesylate 1 MG TABLET PO (20:59)
[2021-07-13] MEDS: Bictegrav/Emtricit/Tenofov Ala TABLET 1 TAB PO (20:59)
[2021-07-14] MEDS: Levothyroxine Sodium 50 MCG TABLET PO (06:33)
[2021-07-14 08:28] VITALS: BP 116/70; PULSE 86; RESP 17; TEMP 36.7; O2SAT 95
[2021-07-14] MEDS: Atorvastatin Calcium 20 MG TABLET PO (08:31)
[2021-07-14] MEDS: Isosorbide Mononitrate 30 MG TAB.ER.24H PO (08:31)
[2021-07-14] MEDS: Buprenorphine/Naloxone 8/2 mg FILM 1 FILM SUBLINGUAL (08:31)
[2021-07-14] MEDS: Sulfamethox/Trimeth 800/160 TABLET 1 TAB PO (08:31)
[2021-07-14] MEDS: Cyanocobalamin (Vitamin B-12) 500 MCG TABLET PO (08:32)
[2021-07-14] MEDS: Multivitamin TABLET 1 TAB PO (08:32)
[2021-07-14] MEDS: Aspirin Enteric Coated 81 MG TABLET.DR PO (08:32)
[2021-07-14] MEDS: Escitalopram Oxalate 20 MG TABLET PO (08:32)
[2021-07-14] MEDS: Clopidogrel Bisulfate 75 MG TABLET PO (08:32)
[2021-07-14] MEDS: Folic Acid 1 MG TABLET PO (08:32)
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
--- NOTE | 2021-07-14 11:30 | PC.NURSE ---
Pt ready and aware of discharge. Pt with bright affect and is future focused. PT denies SI/HI. Discharge instructions discussed, all questions answered. Pt is aware of follow up appointments. Pt ambulated off unit with steady gait.
== END 2021-07-14 11:30 | disposition home or self-care (01) | DRG 750 ==
LOC: HO.ED 04:08 → HO.PADLT16 17:41
PROVIDERS: Admitting Provider Registered Nurse; Emergency Provider Emergency Medicine; Visit Provider Psychiatry & Neurology Psychiatry
DX: F25.1 Schizoaffective disorder, depressive type (principal); B20 Human immunodeficiency virus [HIV] disease; F02.81 Dementia in other diseases classified elsewhere, unspecified severity, with behavioral disturbance; R45.851 Suicidal ideations; F14.20 Cocaine dependence, uncomplicated; J18.9 Pneumonia, unspecified organism; Z20.822 Contact with and (suspected) exposure to COVID-19; Z86.19 Personal history of other infectious and parasitic diseases; Z79.82 Long term (current) use of aspirin; Z79.02 Long term (current) use of antithrombotics/antiplatelets; Z79.890 Hormone replacement therapy; Z79.899 Other long term (current) drug therapy
CPT/HCPCS: 36415; 71045; 80048; 80061; 80076; 80307; 81001; 81003; 82607; 82746; 83036; 83735; 84439; 84443; 85007; 85027; 87502; 87635; 93005; 99285

== ENCOUNTER 2021-08-09 04:44 | Emergency (ER) | payer MEDICAID, SELFPAY ==
[2021-08-09 04:48] VITALS: BP 130/90; PULSE 85; O2SAT 97
--- NOTE | 2021-08-09 04:51 | ED_ITS ---
HPI - Psych General Chief Complaint: Psychiatric Symptoms Stated Complaint: crisis Time Seen by Provider: 08/09/21 04:50 Source: patient and old records reviewed Mode of arrival: EMS Limitations: no limitations History of Present Illness MD complaint: suicidal ideation, feels depressed and substance abuse Onset (ago): month(s) Duration: intermittent History of same: Yes Relieving factors: none Exacerbating factors: drug use Context: recent drug abuse Associated psychiatric symptoms: depression and suicidal ideation Associated symptoms: denies other symptoms Treatments prior to arrival: none Related Data Home Medications Medication Instructions Recorded Confirmed albuterol sulfate 90 mcg/actuation 2 puff PO Q4-6H PRN Wheezing 07/08/21 07/08/21 aerosol inhaler (ProAir HFA) aspirin 81 mg tablet,delayed 1 tab PO DAILY 07/08/21 07/08/21 release atorvastatin 20 mg tablet 1 tab PO DAILY 07/08/21 07/08/21 bictegravir 50 mg-emtricitabine 1 tab PO BEDTIME 07/08/21 07/08/21 200 mg-tenofovir alafenam 25 mg tablet (Biktarvy) buprenorphine 8 mg-naloxone 2 mg 1 strip sublingual BID 07/08/21 07/08/21 sublingual film (Suboxone) clopidogrel 75 mg tablet 1 tab PO DAILY 07/08/21 07/08/21 cyanocobalamin (vitamin B-12) 500 1 tab PO DAILY 07/08/21 07/08/21 mcg tablet escitalopram oxalate 20 mg tablet 1 tab PO DAILY 07/08/21 07/08/21 isosorbide mononitrate 30 mg 1 tab PO DAILY 07/08/21 07/08/21 tablet,extended release 24 hr levothyroxine 50 mcg tablet 1 tab PO DAILY 07/08/21 07/08/21 mirtazapine 15 mg tablet 1 tab PO BEDTIME 07/08/21 07/08/21 nicotine 21 mg/24 hr daily 1 patch topical DAILY 07/08/21 07/08/21 transdermal patch nitroglycerin 0.4 mg sublingual 0.4 mg sublingual PER PKG DIR PRN 07/08/21 07/08/21 tablet Chest Pain quetiapine 100 mg tablet 100 mg PO BEDTIME PRN Sleep 07/08/21 07/08/21 quetiapine 200 mg tablet 1 tab PO BEDTIME 07/08/21 07/08/21 sulfamethoxazole 800 1 tab PO DAILY 07/08/21 07/08/21 mg-trimethoprim 160 mg tablet trazodone 50 mg tablet 50 mg PO BEDTIME PRN Sleep 07/08/21 07/08/21 Previous Rx's Medication Instructions Recorded benztropine 1 mg tablet 1 mg PO BEDTIME 30 days #30 tabs 06/17/21 cefuroxime axetil 500 mg tablet 500 mg PO BID 5 days #10 tabs 07/14/21 folic acid 1 mg tablet 1 mg PO DAILY 30 days #30 tabs 07/14/21 multivitamin (Daily-[place]) 1 tab PO DAILY 30 days #30 tabs 07/14/21 sulfamethoxazole 800 1 tab PO BID 5 days #10 tabs 07/14/21 mg-trimethoprim 160 mg tablet Allergies Allergy/AdvReac Type Severity Reaction Status Date / Time No Known Allergies Allergy Mild NO REACTION Verified 06/01/20 20:45 Review of Systems Review of Systems: Constitutional : No Fever, No Chills ENT/Mouth : No Ear Pain, No Nasal Congestion, No sore throat Eyes: No Eye Pain, No Swelling, No Redness Cardiovascular : No Chest Pain, No SOB Respiratory : No Cough, No Sputum, No Dyspnea Gastrointestinal : No Nausea, No Vomiting, No Diarrhea, No Hematochezia, No Melena Genitourinary : No Dysuria, No Urinary Frequency, No Hematuria Musculoskeletal : No Myalgias Skin : No Skin Lesions, No rash Neuro : No Weakness, No Numbness, No Paresthesias, No Dizziness, No Headache Psych : positive Anxiety, positive Depression, positive SI no HI Heme/Lymph: No Lymphadenopathy Endocrine : No Polyuria, No Polydipsia All other systems reviewed and are negative [facility] Past Medical History Attestation statement: The following information was validated with the patient. Medical History AIDS Asthma Cocaine use disorder, severe, dependence Depression Hepatitis C Opioid dependence Schizoaffective disorder Schizoaffective disorder Tardive dyskinesia Social History Social History Household Members: Other Household Members Other:: [facility]. Housing: Assisted Living Facility Housing Other:: [facility]-Way [facility] Do you presently have visiting nurse or other home services: Yes Unable to assess alcohol history related to: Unknown Alcohol intake: unknown Patient Tobacco Use Status: Refuse Tobacco use screen Tobacco use type: Cigarette Cigarette Packs Per Day: 1 Cigarettes Per Day: 20.0 Years Smoked: 40 e-Cigarette/Vaping Use: Former Use Second Hand Smoke Exposure: No Substance Use Type: Crack/Cocaine and Heroin Advance Directives Date on File: 01/29/20 service: No Sexual orientation: Straight/Heterosexual Physical Exam Vital Signs: Vital Signs: Last Vital Signs Temp 98.9 F 08/09/21 04:54 Pulse 79 08/09/21 04:54 Resp 14 08/09/21 04:54 BP 109/90 H 08/09/21 04:54 Pulse Ox 97 08/09/21 04:54 O2 Del Method 08/09/21 04:54 BMI result Body Mass Index 23.3 Appearance: Alert. Oriented X3. No acute distress. Eyes: Pupils equal, round and reactive to light. ENT: Pharynx normal. Neck: Normal inspection. Neck supple. CVS: Normal heart rate and rhythm. Pulses normal. Respiratory: No respiratory distress. Breath sounds normal. Abdomen: Soft and nontender. Skin: Skin warm and dry. Normal skin color. Normal skin turgor. Extremities: No lower extremity edema. No calf ttp Neuro: Oriented X 3. No motor deficit. No sensory deficit. CN2-12 intact Course Course Course Narrative: Physician observation started at 520am Patient placed in physician observation because the patient needed more time for [facility] to asses the need for psych admission. At the time observation was started the patient's vitals were stable, patient is alert and oriented, Neuro: nonfocal, CV RRR, Lungs clear MDM - Psych MDM Narrative Medical decision making narrative: 60 yo male with hx of MDD, HIV, schizoaffective disorder, substance abuse reports using drugs and is now suicidal - will obtain labs, refer to N once medically cleared Discharge Plan Discharge Clinical Impression: Suicidal ideation, Active substance abuse Patient Disposition: Still a Patient Prescriptions: No Action isosorbide mononitrate 30 mg tablet extended release 24 hr 1 tab PO DAILY quetiapine 200 mg tablet 1 tab PO BEDTIME mirtazapine 15 mg tablet 1 tab PO BEDTIME albuterol sulfate [ProAir HFA] 90 mcg/actuation HFA aerosol inhaler 2 puff PO Q4-6H PRN (Reason: Wheezing) buprenorphine-naloxone [Suboxone] 8-2 mg film 1 strip sublingual BID clopidogrel 75 mg tablet 1 tab PO DAILY aspirin 81 mg tablet,delayed release (DR/EC) 1 tab PO DAILY cyanocobalamin (vitamin B-12) 500 mcg tablet 1 tab PO DAILY levothyroxine 50 mcg tablet 1 tab PO DAILY nicotine 21 mg/24 hr patch 24 hour 1 patch topical DAILY nitroglycerin 0.4 mg tablet, sublingual 0.4 mg sublingual PER PKG DIR PRN (Reason: Chest Pain) escitalopram oxalate 20 mg tablet 1 tab PO DAILY atorvastatin 20 mg tablet 1 tab PO DAILY sulfamethoxazole-trimethoprim 800-160 mg tablet 1 tab PO DAILY trazodone 50 mg Tablet 50 mg PO BEDTIME PRN (Reason: Sleep) quetiapine 100 mg Tablet 100 mg PO BEDTIME PRN (Reason: Sleep) Biktarvy 50-200-25 mg Tablet 1 tab PO BEDTIME multivitamin [Daily-[place]] Tablet 1 tab PO DAILY 30 Days Qty: 30 0RF sulfamethoxazole-trimethoprim 800-160 mg Tablet 1 tab PO BID 5 Days Qty: 10 0RF folic acid 1 mg Tablet 1 mg PO DAILY 30 Days Qty: 30 0RF cefuroxime axetil 500 mg Tablet 500 mg PO BID 5 Days Qty: 10 0RF benztropine 1 mg Tablet 1 mg PO BEDTIME 30 Days Qty: 30 0RF
[2021-08-09 04:54] VITALS: BP 109/90; PULSE 79; RESP 14; TEMP 37.2; O2SAT 97; BMI 23.3
[2021-08-09 05:41] LABS: Basophils Absolute Auto 0.1 X10*3/uL (0.0-0.2); Basophils Percent Auto 0.8 % (0-2); Eosinophils Absolute Auto 0.1 X10*3/uL (0.0-0.4); Eosinophils Percent Auto 1.1 % (0-4); Hematocrit 34.2 % (42.0-52.0); Hemoglobin 11.8 g/dl (14.0-18.0); Imm Gran Abs Auto 0.03 X10*3/uL (0.00-0.03); Imm Gran Pct Auto 0.5 % (0.0-0.4); Lymphocytes Absolute Auto 1.2 X10*3/uL (1.2-4.9); Lymphocytes Percent Auto 18.4 % (20-40); MANUAL DIFF FLAG NO; Mean Corpuscular HGB Conc 34.5 g/dl (31.0-36.0); Mean Corpuscular Hemoglobin 31.2 pg (27.0-33.0); Mean Corpuscular Volume 90.5 fL (80.0-98.0); Mean Platelet Volume 9.7 fL (9.4-12.4); Monocytes Absolute Auto 0.9 X10*3/uL (0.1-1.2); Monocytes Percent Auto 13.2 % (2-11); Neutrophils Absolute Auto 4.3 x10*3/uL (2.0-8.3); Platelet Count 168 X10*3/uL (160-400); Red Blood Count 3.78 X10*6/uL (4.60-5.80); White Blood Count 6.4 X10*3/uL (4.8-10.8)
[2021-08-09 05:57] LABS: COVID-19 Test Negative (Negative); IDNOW Serial# 16C4AD1C
[2021-08-09 05:58] LABS: Alanine Aminotransferase 26 U/L (0-40); Albumin Level 3.7 g/dL (3.5-5.0); Alkaline Phosphatase 92 U/L (39-117); Anion Gap 10 (12-20); Aspartate Amino Transferase 38 U/L (5-37); Bilirubin Direct 0.2 mg/dL (0.0-0.5); Bilirubin Total 0.3 mg/dL (0.0-1.0); Blood Urea Nitrogen 20 mg/dL (9-16); Calcium 8.7 mg/dL (8.4-10.2); Carbon Dioxide 25 mmol/L (22-29); Chloride 103 mmol/L (96-108); Creatinine Clr Calc Pharmacy 72.5; Estimated Glomerular Filt Rate > 60; Glucose Random 81 mg/dL (60-115); Potassium 4.3 mmol/L (3.3-5.1); Sodium 134 mmol/L (135-145); Total Protein 7.4 g/dL (6.5-8.0)
[2021-08-09 12:59] VITALS: BP 122/69; PULSE 79; RESP 18; TEMP 36.8; O2SAT 97
== END 2021-08-09 16:36 | disposition home or self-care (01) ==
PROVIDERS: Emergency Provider Emergency Medicine
DX: R45.851 Suicidal ideations (principal); F11.20 Opioid dependence, uncomplicated; F14.20 Cocaine dependence, uncomplicated; F32.A Depression, unspecified; F25.9 Schizoaffective disorder, unspecified; B20 Human immunodeficiency virus [HIV] disease; J45.909 Unspecified asthma, uncomplicated; Z20.822 Contact with and (suspected) exposure to COVID-19
CPT/HCPCS: 80048; 80076; 85025; 87635; 99283

== ENCOUNTER 2021-08-12 15:51 | Emergency (ER) | payer MEDICAID, SELFPAY ==
--- NOTE | ~2021-08-12 | CT_ITS ---
EXAMINATION: CT HEAD WITHOUT CONTRAST CLINICAL INFORMATION: Fall. EtOH. COMPARISON: 03/04/2021 TECHNIQUE: Contiguous axial imaging was performed from the skull base to vertex without intravenous contrast. This CT examination was performed using dose optimization techniques as appropriate, variously including the following: * Automated exposure control * Adjustment of mA and/or kV according to patient size (this includes techniques or standardized protocols for targeted exams where dose is matched to indication/reason for exam; i.e. extremities or head) Use of iterative reconstruction technique DLP: 647 mGy-cm. FINDINGS: There is no evidence of acute intracranial hemorrhage or territorial infarction. No abnormal mass effect or midline shift is seen. Sunshine to white matter differentiation is well preserved. No extra-axial fluid collections are identified. No hydrocephalus. Proportional prominence of the ventricles and sulcal spaces is consistent with mild volume loss. There is no abnormal attenuation within the brain parenchyma. The osseous structures and soft tissues are normal. The mastoid air cells and visualized portions of the paranasal sinuses are well aerated. CT/CT head/brain wo con IMPRESSION: No acute intracranial pathology.
[2021-08-12 15:59] VITALS: BP 110/85; PULSE 95
[2021-08-12 16:21] VITALS: BP 108/60; PULSE 89; RESP 16; O2SAT 95; BMI 20.5
[2021-08-12] MEDS: LORazepam 1 MG TABLET 2 MG PO (16:40)
--- NOTE | 2021-08-12 16:41 | PC.NURSE ---
pt alert and oriented to self, vss, medicated per provider order, labs held pending pt calming down - pt rolling around erratically in bed, unable to sit still and follow verbal commands.
[2021-08-12 17:09] LABS: MANUAL DIFF FLAG NO
[2021-08-12 17:21] LABS: INTERNATIONAL NORM RATIO 1.2 (0.9-1.1); Prothrombin Time 13.8 SEC (10.0-13.1)
[2021-08-12 17:22] LABS: Basophils Percent Auto 0.4 % (0-2); Eosinophils Percent Auto 0.1 % (0-4); Hematocrit 37.9 % (42.0-52.0); Imm Gran Abs Auto 0.02 X10*3/uL (0.00-0.03); Imm Gran Pct Auto 0.3 % (0.0-0.4); Lymphocytes Absolute Auto 0.6 X10*3/uL (1.2-4.9); Lymphocytes Percent Auto 8.1 % (20-40); Mean Corpuscular HGB Conc 34.3 g/dl (31.0-36.0); Mean Corpuscular Hemoglobin 31.3 pg (27.0-33.0); Mean Corpuscular Volume 91.1 fL (80.0-98.0); Mean Platelet Volume 10.5 fL (9.4-12.4); Monocytes Absolute Auto 0.7 X10*3/uL (0.1-1.2); Monocytes Percent Auto 9.7 % (2-11); Neutrophils Absolute Auto 5.6 x10*3/uL (2.0-8.3); Neutrophils Percent Auto 81.4 % (45-73); Platelet Count 164 X10*3/uL (160-400); Red Blood Count 4.16 X10*6/uL (4.60-5.80); White Blood Count 6.9 X10*3/uL (4.8-10.8)
[2021-08-12 17:31] LABS: Ethanol < 10 mg/dL
[2021-08-12 17:34] LABS: Alanine Aminotransferase 30 U/L (0-40); Albumin Level 4.1 g/dL (3.5-5.0); Alkaline Phosphatase 103 U/L (39-117); Anion Gap 13 (12-20); Aspartate Amino Transferase 41 U/L (5-37); Bilirubin Direct 0.2 mg/dL (0.0-0.5); Bilirubin Total 0.3 mg/dL (0.0-1.0); Blood Urea Nitrogen 20 mg/dL (9-16); Calcium 9.7 mg/dL (8.4-10.2); Carbon Dioxide 25 mmol/L (22-29); Chloride 111 mmol/L (96-108); Creatinine Clr Calc Pharmacy 41.1; Estimated Glomerular Filt Rate 46; Glucose Random 115 mg/dL (60-115); Magnesium 2.5 mg/dL (1.6-2.6); Potassium 4.9 mmol/L (3.3-5.1); Sodium 144 mmol/L (135-145); Total Protein 8.2 g/dL (6.5-8.0)
[2021-08-12 17:34] LABS: COVID-19 Test Negative (Negative)
[2021-08-12 17:38] LABS: Troponin-I High Sensitivity 58.4 ng/L (<3.5-35.0)
--- NOTE | 2021-08-12 18:06 | ED_ITS ---
HPI - Fall General Chief Complaint: Fall Stated Complaint: wellness check Time Seen by Provider: 08/12/21 16:26 Source: patient and EMS Mode of arrival: EMS Limitations: no limitations History of Present Illness HPI Narrative: patient comes to emergency room via ambulance. Patient reports that he fell today, a head strike. Patient does not use blood thinners, however he is known to drink alcohol and use cocaine/heroin. Patient admits to using drugs. Patient is acting erratic, hitting his head with both hands. Patient is very agitated but he is trying to be cooperative Related Data Home Medications Medication Instructions Recorded Confirmed albuterol sulfate 90 mcg/actuation 2 puff PO Q4-6H PRN Wheezing 07/08/21 07/08/21 aerosol inhaler (ProAir HFA) aspirin 81 mg tablet,delayed 1 tab PO DAILY 07/08/21 07/08/21 release atorvastatin 20 mg tablet 1 tab PO DAILY 07/08/21 07/08/21 bictegravir 50 mg-emtricitabine 1 tab PO BEDTIME 07/08/21 07/08/21 200 mg-tenofovir alafenam 25 mg tablet (Biktarvy) buprenorphine 8 mg-naloxone 2 mg 1 strip sublingual BID 07/08/21 07/08/21 sublingual film (Suboxone) clopidogrel 75 mg tablet 1 tab PO DAILY 07/08/21 07/08/21 cyanocobalamin (vitamin B-12) 500 1 tab PO DAILY 07/08/21 07/08/21 mcg tablet escitalopram oxalate 20 mg tablet 1 tab PO DAILY 07/08/21 07/08/21 isosorbide mononitrate 30 mg 1 tab PO DAILY 07/08/21 07/08/21 tablet,extended release 24 hr levothyroxine 50 mcg tablet 1 tab PO DAILY 07/08/21 07/08/21 mirtazapine 15 mg tablet 1 tab PO BEDTIME 07/08/21 07/08/21 nicotine 21 mg/24 hr daily 1 patch topical DAILY 07/08/21 07/08/21 transdermal patch nitroglycerin 0.4 mg sublingual 0.4 mg sublingual PER PKG DIR PRN 07/08/21 07/08/21 tablet Chest Pain quetiapine 100 mg tablet 100 mg PO BEDTIME PRN Sleep 07/08/21 07/08/21 quetiapine 200 mg tablet 1 tab PO BEDTIME 07/08/21 07/08/21 trazodone 50 mg tablet 50 mg PO BEDTIME PRN Sleep 07/08/21 07/08/21 Previous Rx's Medication Instructions Recorded benztropine 1 mg tablet 1 mg PO BEDTIME 30 days #30 tabs 06/17/21 folic acid 1 mg tablet 1 mg PO DAILY 30 days #30 tabs 07/14/21 multivitamin (Daily-[place]) 1 tab PO DAILY 30 days #30 tabs 07/14/21 Allergies Allergy/AdvReac Type Severity Reaction Status Date / Time Onions Allergy Swelling Uncoded 08/12/21 16:20 Review of Systems Review of Systems: patient is too agitated, unable to answer any questions at this time PMFSH Past Medical History Medical History AIDS Asthma Cocaine use disorder, severe, dependence Depression Hepatitis C HIV (human immunodeficiency virus infection) MDD (major depressive disorder), recurrent episode, severe Opioid dependence Opioid use disorder, severe, in early remission, on maintenance therapy, dependence Schizoaffective disorder Schizoaffective disorder Tardive dyskinesia Social History Social History Household Members: Other Household Members Other:: [facility] resides in [facility] Housing: Assisted Living Facility Housing Other:: [facility] Do you presently have visiting nurse or other home services: Yes Unable to assess alcohol history related to: Unknown Alcohol intake: current Alcohol intake frequency: does not drink Alcohol type: beer and hard liquor Patient Tobacco Use Status: Refuse Tobacco use screen Tobacco use type: Cigarette Cigarette Packs Per Day: 1 Cigarettes Per Day: 20.0 Years Smoked: 40 e-Cigarette/Vaping Use: Former Use Second Hand Smoke Exposure: No Use of substances other than those prescribed or required for medical reasons: Yes Substance Use Type: Crack/Cocaine and Heroin Advance Directives: Yes Advance Directives on File: Yes Advance Directives Date on File: 01/29/20 service: No Sexual orientation: Straight/Heterosexual Physical Exam Vital Signs: Vital Signs: Last Vital Signs Pulse 89 08/12/21 16:21 Resp 17 08/12/21 20:28 BP 125/82 08/12/21 20:28 Pulse Ox 90 L 08/12/21 20:28 O2 Del Method 08/12/21 20:28 BMI result Body Mass Index 20.5 Const: Other: Appearance: Alert. agitated, slapping his head with both hands Eyes: Pupils equal, round and reactive to light. ENT: Pharynx normal. Neck: Normal inspection. Neck supple. No lymph nodes noted. No crepitus CVS: Normal heart rate and rhythm. Pulses normal. Normal S1 and S2 Respiratory: No respiratory distress. Breath sounds normal. No Wheezing. No rales Abdomen: Soft and nontender. No rigidity. No distention. Skin: Skin warm and dry. Normal skin color. Normal skin turgor. Extremities: No lower extremity edema. No Lacerations. No Rash Neuro:CN 2 through 12 grossly intact Psych: agitated, trying to be cooperative Course Course Course Narrative: patient has mild MATTHEW, patient getting IV fluids troponin 1. is 58.4, to be repeated at 20:00, patient reports no chest pain troponin and creatinine levels are pending. Patient already received IV fluids. [facility] consult pending. Sign-out given to Dr. Whitley [facility] Lab Data Result diagrams: 08/12/21 17:02 08/12/21 17:02 Labs: Lab Results 08/12/21 08/12/21 08/12/21 Range/Units 17:01 17:02 17:02 WBC 6.9 (4.8-10.8) X10*3/uL RBC 4.16 L (4.60-5.80) X10*6/uL Hgb 13.0 L (14.0-18.0) g/dl Hct 37.9 L (42.0-52.0) % MCV 91.1 (80.0-98.0) fL MCH 31.3 (27.0-33.0) pg MCHC 34.3 (31.0-36.0) g/dl RDW 15.0 (11.0-16.0) % Plt Count 164 (160-400) X10*3/uL MPV 10.5 (9.4-12.4) fL Immature Gran % (Auto) 0.3 (0.0-0.4) % Neut % (Auto) 81.4 H (45-73) % Lymph % (Auto) 8.1 L (20-40) % [place] % (Auto) 9.7 (2-11) % Eos % (Auto) 0.1 (0-4) % Baso % (Auto) 0.4 (0-2) % Lymph # (Auto) 0.6 L (1.2-4.9) X10*3/uL [place] # (Auto) 0.7 (0.1-1.2) X10*3/uL Eos # (Auto) 0.0 (0.0-0.4) X10*3/uL Baso # (Auto) 0.0 (0.0-0.2) X10*3/uL Abs Immat Gran (auto) 0.02 (0.00-0.03) X10*3/uL Absolute Neuts (auto) 5.6 (2.0-8.3) x10*3/uL Absolute Nucleated RBC 0.000 (0.0-0.012) X10*3/uL Nucleated RBC % (auto) 0.0 (0.0-0.2) /100WBC PT (10.0-13.1) SEC INR (0.9-1.1) Sodium 144 (135-145) mmol/L Potassium 4.9 (3.3-5.1) mmol/L Chloride 111 H (96-108) mmol/L Carbon Dioxide 25 (22-29) mmol/L Anion Gap 13 (12-20) BUN 20 H (9-16) mg/dL Creatinine 1.54 H (0.5-1.4) mg/dL Estim Creat Clear Calc 41.1 Estimated GFR 46 Random Glucose 115 D (60-115) mg/dL Calcium 9.7 D (8.4-10.2) mg/dL Magnesium 2.5 (1.6-2.6) mg/dL Total Bilirubin 0.3 (0.0-1.0) mg/dL Direct Bilirubin 0.2 (0.0-0.5) mg/dL AST 41 H (5-37) U/L ALT 30 (0-40) U/L Alkaline Phosphatase 103 (39-117) U/L Troponin I High Sens (<3.5-35.0) ng/L Total Protein 8.2 H (6.5-8.0) g/dL Albumin 4.1 (3.5-5.0) g/dL Ethyl Alcohol mg/dL COVID-19 (NEETU) Negative (Negative) COVID-19 Clin Com See Note 08/12/21 08/12/21 08/12/21 Range/Units 17:02 17:02 17:02 WBC (4.8-10.8) X10*3/uL RBC (4.60-5.80) X10*6/uL Hgb (14.0-18.0) g/dl Hct (42.0-52.0) % MCV (80.0-98.0) fL MCH (27.0-33.0) pg MCHC (31.0-36.0) g/dl RDW (11.0-16.0) % Plt Count (160-400) X10*3/uL MPV (9.4-12.4) fL Immature Gran % (Auto) (0.0-0.4) % Neut % (Auto) (45-73) % Lymph % (Auto) (20-40) % [place] % (Auto) (2-11) % Eos % (Auto) (0-4) % Baso % (Auto) (0-2) % Lymph # (Auto) (1.2-4.9) X10*3/uL [place] # (Auto) (0.1-1.2) X10*3/uL Eos # (Auto) (0.0-0.4) X10*3/uL Baso # (Auto) (0.0-0.2) X10*3/uL Abs Immat Gran (auto) (0.00-0.03) X10*3/uL Absolute Neuts (auto) (2.0-8.3) x10*3/uL Absolute Nucleated RBC (0.0-0.012) X10*3/uL Nucleated RBC % (auto) (0.0-0.2) /100WBC PT 13.8 H (10.0-13.1) SEC INR 1.2 H (0.9-1.1) Sodium (135-145) mmol/L Potassium (3.3-5.1) mmol/L Chloride (96-108) mmol/L Carbon Dioxide (22-29) mmol/L Anion Gap (12-20) BUN (9-16) mg/dL Creatinine (0.5-1.4) mg/dL Estim Creat Clear Calc Estimated GFR Random Glucose (60-115) mg/dL Calcium (8.4-10.2) mg/dL Magnesium (1.6-2.6) mg/dL Total Bilirubin (0.0-1.0) mg/dL Direct Bilirubin (0.0-0.5) mg/dL AST (5-37) U/L ALT (0-40) U/L Alkaline Phosphatase (39-117) U/L Troponin I High Sens 58.4 H (<3.5-35.0) ng/L Total Protein (6.5-8.0) g/dL Albumin (3.5-5.0) g/dL Ethyl Alcohol < 10 mg/dL COVID-19 (NEETU) (Negative) COVID-19 Clin Com Discharge Plan Discharge Clinical Impression: Substance abuse, MATTHEW (acute kidney injury), Elevated troponin Patient Disposition: Still a Patient Prescriptions: No Action isosorbide mononitrate 30 mg tablet extended release 24 hr 1 tab PO DAILY quetiapine 200 mg tablet 1 tab PO BEDTIME mirtazapine 15 mg tablet 1 tab PO BEDTIME albuterol sulfate [ProAir HFA] 90 mcg/actuation HFA aerosol inhaler 2 puff PO Q4-6H PRN (Reason: Wheezing) buprenorphine-naloxone [Suboxone] 8-2 mg film 1 strip sublingual BID clopidogrel 75 mg tablet 1 tab PO DAILY aspirin 81 mg tablet,delayed release (DR/EC) 1 tab PO DAILY cyanocobalamin (vitamin B-12) 500 mcg tablet 1 tab PO DAILY levothyroxine 50 mcg tablet 1 tab PO DAILY nicotine 21 mg/24 hr patch 24 hour 1 patch topical DAILY nitroglycerin 0.4 mg tablet, sublingual 0.4 mg sublingual PER PKG DIR PRN (Reason: Chest Pain) escitalopram oxalate 20 mg tablet 1 tab PO DAILY atorvastatin 20 mg tablet 1 tab PO DAILY trazodone 50 mg Tablet 50 mg PO BEDTIME PRN (Reason: Sleep) quetiapine 100 mg Tablet 100 mg PO BEDTIME PRN (Reason: Sleep) Biktarvy 50-200-25 mg Tablet 1 tab PO BEDTIME multivitamin [Daily-[place]] Tablet 1 tab PO DAILY 30 Days Qty: 30 0RF folic acid 1 mg Tablet 1 mg PO DAILY 30 Days Qty: 30 0RF benztropine 1 mg Tablet 1 mg PO BEDTIME 30 Days Qty: 30 0RF
--- NOTE | 2021-08-12 18:12 | ECG_ITS ---
Test Reason : AMS Blood Pressure : / mmHG Vent. Rate : 078 BPM Atrial Rate : 078 BPM P-R Int : 230 ms QRS Dur : 092 ms QT Int : 386 ms P-R-T Axes : 041 059 025 degrees QTc Int : 440 ms Sinus rhythm with 1st degree A-V block Otherwise normal ECG When compared with ECG of 08-JUL-2021 17:04, T wave inversion no longer evident in Anterior leads Referred By: Briana Metz Electronically Signed By:SHEILA CAMERON
--- NOTE | 2021-08-12 18:27 | MHC.CARE ---
CARE team observed pt to not be alert at this time, will re-engage once alert and offer SUDE/resources.
[2021-08-12] MEDS: 0.9 % Sodium Chloride 1,000 ML 999 ML IVCONT (19:37)
--- NOTE | 2021-08-12 19:39 | PC.NURSE ---
22G IV placed left hand, IVF started per provider order.
[2021-08-12 20:28] VITALS: BP 125/82; RESP 17; O2SAT 90
[2021-08-13 00:11] LABS: Appearance Urine HAZY; Color Urine DK YELLOW; Glucose Urine UA NEG (NEG); Leukocyte Esterase Urine NEG (NEG); Nitrite Urine NEG (NEG); PH 5.5 (5.0-8.0); Specific Gravity - Urine >= 1.030 (1.005-1.025); Urine Blood NEG (NEG); Urine Ketones NEG (NEG); Urine Protein TRACE MG/DL (NEG-TRACE)
[2021-08-13 00:42] LABS: Fentanyl, urine POSITIVE (Not Detect)
[2021-08-13 00:44] LABS: Amphetamine Screen Urine Not Detected (Not Detect); Barbiturates, Urine Not Detected (Not Detect); Cannabinoid Screen Urine Not Detected (Not Detect); Cocaine Screen Urine POSITIVE (Not Detect); Opiate Screen Urine POSITIVE (Not Detect); Phencyclidine Screen Urine Not Detected (Not Detect)
[2021-08-13 00:58] LABS: Anion Gap 12 (12-20); Blood Urea Nitrogen 24 mg/dL (9-16); Calcium 9.1 mg/dL (8.4-10.2); Carbon Dioxide 25 mmol/L (22-29); Chloride 109 mmol/L (96-108); Creatinine Clr Calc Pharmacy 52.4; Estimated Glomerular Filt Rate > 60; Glucose Random 83 mg/dL (60-115); Sodium 141 mmol/L (135-145)
[2021-08-13 01:05] LABS: Troponin-I High Sensitivity 62.3 ng/L (<3.5-35.0)
--- NOTE | 2021-08-13 05:54 | PC.NURSE ---
Patient was up whole night restless, currently in bed resting, no distress observed/reported, patient will be seen by motor coach bus driver in the morning, med rec completed/pending provider's approval, behavior non concerning, VSS, will continue to monitor.
[2021-08-13 06:17] VITALS: BP 106/65; PULSE 80; RESP 17; O2SAT 93
--- NOTE | 2021-08-13 07:17 | PC.NURSE ---
patient appears to remain asleep respirations are even and unlabored patient appears in no distress
--- NOTE | 2021-08-13 08:24 | ECG_ITS ---
Test Reason : med clearance Blood Pressure : / mmHG Vent. Rate : 075 BPM Atrial Rate : 075 BPM P-R Int : 288 ms QRS Dur : 092 ms QT Int : 394 ms P-R-T Axes : 062 078 048 degrees QTc Int : 439 ms Sinus rhythm with 1st degree A-V block Abnormal ECG When compared with ECG of 12-AUG-2021 18:51, No significant change was found Referred By: Mayra Vogt Electronically Signed By:SHEILA CAMERON
[2021-08-13 08:40] LABS: Benzodiazepines Screen Urine NOT DETECTED (Not Detect)
[2021-08-13 09:13] LABS: Alanine Aminotransferase 28 U/L (0-40); Albumin Level 3.9 g/dL (3.5-5.0); Alkaline Phosphatase 100 U/L (39-117); Anion Gap 10 (12-20); Aspartate Amino Transferase 53 U/L (5-37); Bilirubin Total 0.4 mg/dL (0.0-1.0); Blood Urea Nitrogen 25 mg/dL (9-16); Calcium 9.3 mg/dL (8.4-10.2); Carbon Dioxide 25 mmol/L (22-29); Chloride 107 mmol/L (96-108); Creatinine Clr Calc Pharmacy 66.7; Estimated Glomerular Filt Rate > 60; Glucose Random 117 mg/dL (60-115); Potassium 4.4 mmol/L (3.3-5.1); Sodium 138 mmol/L (135-145); Total Protein 7.7 g/dL (6.5-8.0)
[2021-08-13 09:20] LABS: Troponin-I High Sensitivity 32.4 ng/L (<3.5-35.0)
--- NOTE | 2021-08-13 12:19 | MHC.CARE ---
Pt is a 60 y/o single, [place]ian Speaking male who is previously known to the CARE Team through multiple prior admissions, ED visits and assessments. Today, pt arrived via EMS endorsing SI and after inflicting superficial cuts to his wrist.? Pt was also under the influence of Cocaine, Fentanyl, and heroin upon arrival.? Pt has been medically cleared and is being assessed by the CARE Team to determine appropriate treatment recommendations. Pt has an extensive hx of inpt hospitalizations, and substance use treatment. Past documented hx of Schizoaffective d/o, Opioid use d/o, Cocaine use d/o, and Major neurocognitive d/o due to HIV infection.? He has a hx of noncompliance with medication and substance use.? Prior hx of SI and attempts. Pt reports compliance with his medications at this time. Pt is alert and oriented x4 and is assessed in his room in the behavioral health pod.? Pt is in bed, awake, and resting in the position.? Pt appears thin and frail.? He is dressed in hospital attire.? Pt is minimally engaged in the assessment though this minimal participation does not appear to be out of resistance to the assessment but rather being unable to effectively articulate or give extensive details.? He makes minimal eye contact; his speech is soft, at times mumbled and difficult to understand making repeating questions necessary at times.? He is observed moving his legs in a restless fashion and rocking his body.? He does this throughout the assessment.? These movements appear to be involuntary.? Pt reports poor sleep and good appetite.? He reports a depressed mood with thoughts of and dying.? He denies SI.? His affect is flat.? He denies AVH, , and HI.? His insight, judgement, concentration and impulse control appear poor.? His memory appears poor.? Pt states that he used heroin and cocaine yesterday.? When he arrived he was demonstrating bizarre behavior, making odd sounds and slapping himself on the head.? This appeared to be involuntary.? Nursing notes indicate that he was awake and active for most of the evening. Pt experiences depression and SI at his baseline with no intent, he does not appear to be experiencing this at this time.? Plan is for pt to be discharged when he wakes.? CARE Team can secure a Lyft for transportation home when he awakens.? This disposition was discussed with and agreed upon by CARE Director Of Public Relations Thomas INGRAM, and ED provider Sin.
--- NOTE | 2021-08-13 13:38 | PC.NURSE ---
Pt remains asleep at this time. Pt is rousable to voice. Per patrick from CARE team and in conjunction with provider, Pt is to be d/c when awake, if agreeable with d/c plan, then CARE team will provide Lyft back to residence.
--- NOTE | 2021-08-13 14:03 | PC.NURSE ---
Pt is awake and eating at this time. requesting socks. reporting full body pain. Rimma notified
== END 2021-08-13 17:04 | disposition home or self-care (01) ==
PROVIDERS: Emergency Medicine; Physician Assistant Medical; Emergency Provider Internal Medicine
DX: F19.10 Other psychoactive substance abuse, uncomplicated (principal); F14.20 Cocaine dependence, uncomplicated; F11.20 Opioid dependence, uncomplicated; N17.9 Acute kidney failure, unspecified; R77.8 Other specified abnormalities of plasma proteins; Z20.822 Contact with and (suspected) exposure to COVID-19; B20 Human immunodeficiency virus [HIV] disease; F25.1 Schizoaffective disorder, depressive type; F33.2 Major depressive disorder, recurrent severe without psychotic features; Z79.82 Long term (current) use of aspirin; Z79.02 Long term (current) use of antithrombotics/antiplatelets; Z79.899 Other long term (current) drug therapy; Z87.891 Personal history of nicotine dependence
CPT/HCPCS: 36415; 70450; 80048; 80053; 80076; 80307; 81003; 82077; 82550; 83735; 84484; 85025; 85610; 87635; 93005; 96360; 99284; 99285

== ENCOUNTER 2021-08-20 11:29 | Emergency (ER) | payer MEDICAID, SELFPAY ==
[2021-08-20 12:03] VITALS: BP 142/82; BP 146/86; PULSE 71; PULSE 92; RESP 18; TEMP 36.8; O2SAT 95; O2SAT 96; BMI 22.1
--- NOTE | 2021-08-20 12:09 | ED.PSYCH ---
HPI - Psych General Chief Complaint: Psychiatric Symptoms Stated Complaint: SI Time Seen by Provider: 08/20/21 12:09 Source: patient and EMS Mode of arrival: EMS Limitations: no limitations History of Present Illness HPI Narrative: Patient is a 60 year old male presenting to the emergency department today with suicidal ideation. Patient states that he is feeling like he is tired of his life and wants to kill himself. Patient states that he has been using heroin and in the past has used suboxone. Patient denies any dizziness, lightheadedness, abdominal pain, nausea, vomiting, fever, chills, blurry vision, double vision, loss of vision, chest pain, difficulty breathing, shortness of breath, back pain, night sweats, pain with urination, increased urinary frequency, increased urinary urgency, blood in his urine or stool, syncope or a near syncopal episode, recent trauma or falls, bowel incontinence, bladder incontinence, bowel retention, bladder retention, or any other complaints at this time. MD complaint: suicidal ideation and feels depressed Duration: constant History of same: Yes Relieving factors: none Exacerbating factors: none Context: recent drug abuse Associated psychiatric symptoms: depression and suicidal ideation Associated symptoms: denies other symptoms Treatments prior to arrival: none Related Data Home Medications Medication Instructions Recorded Confirmed aspirin 81 mg tablet,delayed 1 tab PO DAILY 08/13/21 08/13/21 release atorvastatin 20 mg tablet 1 tab PO DAILY 08/13/21 08/13/21 buprenorphine 8 mg-naloxone 2 mg 1 strip sublingual BID 08/13/21 08/13/21 sublingual film (Suboxone) clopidogrel 75 mg tablet 1 tab PO DAILY 08/13/21 08/13/21 cyanocobalamin (vitamin B-12) 500 1 tab PO DAILY 08/13/21 08/13/21 mcg tablet escitalopram oxalate 20 mg tablet 1 tab PO DAILY 08/13/21 08/13/21 folic acid 1 mg tablet 1 tab PO DAILY 08/13/21 08/13/21 levothyroxine 50 mcg tablet 1 tab PO QAM 08/13/21 08/13/21 multivitamin (One Daily 1 tab PO DAILY 08/13/21 08/13/21 Multivitamin) nicotine 21 mg/24 hr daily 21 mg topical DAILY 08/13/21 08/13/21 transdermal patch Allergies Allergy/AdvReac Type Severity Reaction Status Date / Time Onions Allergy Swelling Uncoded 08/20/21 12:02 Review of Systems Constitutional: Constitutional: Reports no additional constitutional complaints, Denies chills, Denies fever(s) and Denies night sweats Eyes: Eyes: Reports no additional eye complaints, Denies blurry vision, Denies change in vision, Denies diplopia, Denies eye discharge, Denies loss of vision and Denies eye pain ENT: Denies dizziness Cardiovascular: Cardiovascular: Reports no additional cardiovascular complaints, Denies chest pain, Denies lightheadedness, Denies Loss of Consciousness and Denies dyspnea Respiratory: Respiratory: Reports no additional respiratory complaints and Denies dyspnea Gastrointestinal: Gastrointestinal: Reports no additional gastrointestinal complaints, Denies abdominal pain, Denies melena, Denies hematochezia, Denies change in bowel habits and Denies change in stool character Genitourinary: Genitourinary: Reports no additional male genitourinary complaints, Denies hematuria, Denies oliguria, Denies difficulty urinating, Denies dysuria, Denies urinary frequency, Denies urinary hesitancy, Denies urinary incontinence and Denies urinary urgency Musculoskeletal: Musculoskeletal: Reports no additional musculoskeletal complaints, Denies numbness and Denies tingling Neurologic: Denies dizziness, Denies loss of vision, Denies numbness and Denies tingling Psychiatric: Psychiatric: Reports no additional psychiatric complaints and Reports suicidal ideation Endocrine: Endocrine: Reports no additional endocrine complaints Hematologic/Lymphatic: Hematologic/Lymphatic: Reports no additional hematologic/lymphatic complaints Allergic/Immunologic: Allergic/Immunologic: Reports no additional allergic/immunologic complaints PMFSH Past Medical History Attestation statement: The following information was validated with the patient. Source: old records reviewed Medical History AIDS Asthma Cocaine use disorder, severe, dependence Depression Hepatitis C HIV (human immunodeficiency virus infection) MDD (major depressive disorder), recurrent episode, severe Opioid dependence Opioid use disorder, severe, in early remission, on maintenance therapy, dependence Schizoaffective disorder Schizoaffective disorder Tardive dyskinesia Social History Social History Household Members: Other Household Members Other:: Patient resides in [facility] Housing: Assisted Living Facility Housing Other:: Nursing Home [facility] Do you presently have visiting nurse or other home services: Yes Unable to assess alcohol history related to: Unknown Alcohol intake: never Patient Tobacco Use Status: Refuse Tobacco use screen Tobacco use type: Cigarette Cigarette Packs Per Day: 1 Cigarettes Per Day: 20.0 Years Smoked: 40 Smoked in Last 30 Days: Yes e-Cigarette/Vaping Use: Former Use Second Hand Smoke Exposure: No Use of substances other than those prescribed or required for medical reasons: Yes Substance Use Type: Crack/Cocaine and Heroin Advance Directives: Yes Advance Directives on File: Yes Advance Directives Date on File: 01/29/20 service: No Sexual orientation: Straight/Heterosexual Physical Exam Vital Signs: Vital Signs: Last Vital Signs Temp 98.3 F 08/20/21 12:03 Pulse 92 08/20/21 12:03 Resp 18 08/20/21 12:03 BP 146/86 H 08/20/21 12:03 Pulse Ox 96 08/20/21 12:03 O2 Del Method 08/20/21 12:03 BMI result Body Mass Index 22.1 Const: General: cooperative, no acute distress, alert and awake Nutritional Appearance: well nourished Orientation/consciousness: patient oriented x3 Limitations: no limitations HEENT: Head: Yes normal to inspection and Yes atraumatic Ears: hearing grossly normal bilaterally and external ears normal General nose exam: Normal external nose present, no nasal discharge noted and no epistaxis Face and sinus: Yes normal facial exam, No abrasion and No laceration Mouth: Normal oral and palatal mucosa present, no drooling and no muffled voice Eyes: General: appearance normal, both eyes and all related structures Periorbital: periorbital findings normal Eyelids: Yes eyelids normal Conjunctivae: conjunctivae normal Pupils: Equal, round and reactive pupils present EOM: EOMs intact bilaterally Neck: Neck: Yes normal visual inspection, Yes full ROM and Yes no lymphadenopathy Chest: Chest palpation & inspection: normal inspection of the chest Resp: Effort & Inspection: normal respiratory effort and able to speak in complete sentences Auscultation: clear to auscultation bilaterally Cardio: Rate: regular rate Rhythm: regular rhythm GI: Inspection: Yes normal to inspection Neuro: General: patient oriented x3 and moves all extremities Cranial nerves: Yes Equal, round and reactive pupils present Cognition (Neuro): normal cognition Motor exam (neuro): 5/5 motor strength present throughout Sensory Exam: Normal double simultaneous stimulation for sensation Coordination: [id number] test normal Extrem: General: Yes normal to inspection, Yes full ROM and Yes capillary refill normal Psych: Appearance: grossly normal Mental Status: mental status grossly normal Affect: normal affect Attitude: cooperative Thought process: Normal thought process present Thought content: Suicidality present Insight: Fair insight present (Psych) MDM - Psych MDM Narrative Medical decision making narrative: Patient is a 60 year old male presenting to the emergency department today with suicidal ideation. Patient's physical exam was unremarkable. Patient's blood work was unremarkable. Patient's urine showed no acute process. Patient's EKG was unremarkable. I explained my physical exam findings as well as all test results to the patient. I answered all questions asked by the patient. I stressed the importance of the patient taking his medication as prescribed. Patient is still pending a behavioral health consult. Differential Diagnosis Differential diagnosis: Likely acute psychosis and suicidal ideation Medical Records Attestation: I reviewed the patient's medical records. Lab Data Attestation: I reviewed the patient's lab results. Result diagrams: 08/20/21 12:58 08/20/21 12:58 Labs: Lab Results 08/20/21 08/20/21 08/20/21 Range/Units 12:05 12:05 12:58 WBC 5.8 (4.8-10.8) X10*3/uL RBC 3.93 L (4.60-5.80) X10*6/uL Hgb 12.0 L (14.0-18.0) g/dl Hct 34.4 L (42.0-52.0) % MCV 87.5 (80.0-98.0) fL MCH 30.5 (27.0-33.0) pg MCHC 34.9 (31.0-36.0) g/dl RDW 14.4 (11.0-16.0) % Plt Count 129 L (160-400) X10*3/uL MPV 10.5 (9.4-12.4) fL Immature Gran % (Auto) 0.2 (0.0-0.4) % Neut % (Auto) 60.2 (45-73) % Lymph % (Auto) 27.4 (20-40) % [place] % (Auto) 10.4 (2-11) % Eos % (Auto) 0.9 (0-4) % Baso % (Auto) 0.9 (0-2) % Lymph # (Auto) 1.6 (1.2-4.9) X10*3/uL [place] # (Auto) 0.6 (0.1-1.2) X10*3/uL Eos # (Auto) 0.1 (0.0-0.4) X10*3/uL Baso # (Auto) 0.1 (0.0-0.2) X10*3/uL Abs Immat Gran (auto) 0.01 (0.00-0.03) X10*3/uL Absolute Neuts (auto) 3.5 (2.0-8.3) x10*3/uL Absolute Nucleated RBC 0.000 (0.0-0.012) X10*3/uL Nucleated RBC % (auto) 0.0 (0.0-0.2) /100WBC Sodium (135-145) mmol/L Potassium (3.3-5.1) mmol/L Chloride (96-108) mmol/L Carbon Dioxide (22-29) mmol/L Anion Gap (12-20) BUN (9-16) mg/dL Creatinine (0.5-1.4) mg/dL Estim Creat Clear Calc Estimated GFR Random Glucose (60-115) mg/dL Calcium (8.4-10.2) mg/dL Total Bilirubin (0.0-1.0) mg/dL AST (5-37) U/L ALT (0-40) U/L Alkaline Phosphatase (39-117) U/L Total Protein (6.5-8.0) g/dL Albumin (3.5-5.0) g/dL Salicylates (15-30) mg/dL Urine Opiates Screen POSITIVE H (Not Detect) Urine Fentanyl Screen POSITIVE H (Not Detect) Acetaminophen (<30) mcg/mL Ur Barbiturates Screen Not Detected (Not Detect) Ur Phencyclidine Scrn Not Detected (Not Detect) Ur Amphetamines Screen Not Detected (Not Detect) U Benzodiazepines Scrn Not Detected (Not Detect) Urine Cocaine Screen POSITIVE H (Not Detect) U Marijuana (THC) Screen Not Detected (Not Detect) Ethyl Alcohol mg/dL COVID-19 (NEETU) Negative (Negative) COVID-19 Clin Com See Note 08/20/21 Range/Units 12:58 WBC (4.8-10.8) X10*3/uL RBC (4.60-5.80) X10*6/uL Hgb (14.0-18.0) g/dl Hct (42.0-52.0) % MCV (80.0-98.0) fL MCH (27.0-33.0) pg MCHC (31.0-36.0) g/dl RDW (11.0-16.0) % Plt Count (160-400) X10*3/uL MPV (9.4-12.4) fL Immature Gran % (Auto) (0.0-0.4) % Neut % (Auto) (45-73) % Lymph % (Auto) (20-40) % [place] % (Auto) (2-11) % Eos % (Auto) (0-4) % Baso % (Auto) (0-2) % Lymph # (Auto) (1.2-4.9) X10*3/uL [place] # (Auto) (0.1-1.2) X10*3/uL Eos # (Auto) (0.0-0.4) X10*3/uL Baso # (Auto) (0.0-0.2) X10*3/uL Abs Immat Gran (auto) (0.00-0.03) X10*3/uL Absolute Neuts (auto) (2.0-8.3) x10*3/uL Absolute Nucleated RBC (0.0-0.012) X10*3/uL Nucleated RBC % (auto) (0.0-0.2) /100WBC Sodium 134 L (135-145) mmol/L Potassium 3.4 D (3.3-5.1) mmol/L Chloride 102 (96-108) mmol/L Carbon Dioxide 26 (22-29) mmol/L Anion Gap 9 L (12-20) BUN 22 H (9-16) mg/dL Creatinine 0.86 (0.5-1.4) mg/dL Estim Creat Clear Calc 79.2 Estimated GFR > 60 Random Glucose 130 H (60-115) mg/dL Calcium 8.7 D (8.4-10.2) mg/dL Total Bilirubin 0.9 (0.0-1.0) mg/dL AST 97 H (5-37) U/L ALT 37 (0-40) U/L Alkaline Phosphatase 91 (39-117) U/L Total Protein 7.1 (6.5-8.0) g/dL Albumin 3.6 (3.5-5.0) g/dL Salicylates < 5.0 L (15-30) mg/dL Urine Opiates Screen (Not Detect) Urine Fentanyl Screen (Not Detect) Acetaminophen < 1 (<30) mcg/mL Ur Barbiturates Screen (Not Detect) Ur Phencyclidine Scrn (Not Detect) Ur Amphetamines Screen (Not Detect) U Benzodiazepines Scrn (Not Detect) Urine Cocaine Screen (Not Detect) U Marijuana (THC) Screen (Not Detect) Ethyl Alcohol < 10 mg/dL COVID-19 (NEETU) (Negative) COVID-19 Clin Com ECG Data Attestation: I personally reviewed and interpreted this ECG as follows: ECG interpretation date: 08/20/21 ECG interpretation time: 13:20 Prior ECG tracings: available for review Interpretation: Vent. Rate: 082 BPM ? ? Atrial Rate: 082 BPM P-R Int: 202 ms? QRS Dur: 090 ms QT Int: 400 ms ? ? ? P-R-T Axes: 061 068 050 degrees QTc Int: 467 ms ? Normal sinus rhythm Normal ECG When compared with ECG of 13-AUG-2021 08:46, MS interval has decreased DD/ 1240 Discharge Plan Discharge Clinical Impression: Feeling suicidal Patient Disposition: Still a Patient Prescriptions: No Action multivitamin [One Daily Multivitamin] Tablet 1 tab PO DAILY atorvastatin 20 mg tablet 1 tab PO DAILY clopidogrel 75 mg tablet 1 tab PO DAILY aspirin 81 mg tablet,delayed release (DR/EC) 1 tab PO DAILY cyanocobalamin (vitamin B-12) 500 mcg tablet 1 tab PO DAILY levothyroxine 50 mcg tablet 1 tab PO QAM nicotine 21 mg/24 hr patch 24 hour 21 mg topical DAILY folic acid 1 mg tablet 1 tab PO DAILY escitalopram oxalate 20 mg tablet 1 tab PO DAILY buprenorphine-naloxone [Suboxone] 8-2 mg film 1 strip sublingual BID
--- NOTE | 2021-08-20 12:24 | ECG_ITS ---
Test Reason : med clearance Blood Pressure : / mmHG Vent. Rate : 082 BPM Atrial Rate : 082 BPM P-R Int : 202 ms QRS Dur : 090 ms QT Int : 400 ms P-R-T Axes : 061 068 050 degrees QTc Int : 467 ms Normal sinus rhythm Normal ECG When compared with ECG of 13-AUG-2021 08:46, DC interval has decreased Referred By: Generic ED Physician Electronically Signed By:Sudheer Lyon
[2021-08-20 12:37] LABS: COVID-19 Test Negative (Negative); IDNOW Serial# 9DB6401D
[2021-08-20 12:38] LABS: Amphetamine Screen Urine Not Detected (Not Detect); Barbiturates, Urine Not Detected (Not Detect); Benzodiazepines Screen Urine Not Detected (Not Detect); Cannabinoid Screen Urine Not Detected (Not Detect); Cocaine Screen Urine POSITIVE (Not Detect); Fentanyl, urine POSITIVE (Not Detect); Opiate Screen Urine POSITIVE (Not Detect); Phencyclidine Screen Urine Not Detected (Not Detect)
[2021-08-20 13:05] LABS: MANUAL DIFF FLAG NO
[2021-08-20 13:08] LABS: Basophils Absolute Auto 0.1 X10*3/uL (0.0-0.2); Basophils Percent Auto 0.9 % (0-2); Eosinophils Absolute Auto 0.1 X10*3/uL (0.0-0.4); Eosinophils Percent Auto 0.9 % (0-4); Hematocrit 34.4 % (42.0-52.0); Imm Gran Abs Auto 0.01 X10*3/uL (0.00-0.03); Imm Gran Pct Auto 0.2 % (0.0-0.4); Lymphocytes Absolute Auto 1.6 X10*3/uL (1.2-4.9); Lymphocytes Percent Auto 27.4 % (20-40); Mean Corpuscular HGB Conc 34.9 g/dl (31.0-36.0); Mean Corpuscular Hemoglobin 30.5 pg (27.0-33.0); Mean Corpuscular Volume 87.5 fL (80.0-98.0); Mean Platelet Volume 10.5 fL (9.4-12.4); Monocytes Absolute Auto 0.6 X10*3/uL (0.1-1.2); Monocytes Percent Auto 10.4 % (2-11); Neutrophils Absolute Auto 3.5 x10*3/uL (2.0-8.3); Neutrophils Percent Auto 60.2 % (45-73); Platelet Count 129 X10*3/uL (160-400); Red Blood Count 3.93 X10*6/uL (4.60-5.80); Red Cell Distribution Width 14.4 % (11.0-16.0); White Blood Count 5.8 X10*3/uL (4.8-10.8)
[2021-08-20 13:34] LABS: Acetaminophen LAB < 1 mcg/mL (<30); Alanine Aminotransferase 37 U/L (0-40); Albumin Level 3.6 g/dL (3.5-5.0); Alkaline Phosphatase 91 U/L (39-117); Anion Gap 9 (12-20); Aspartate Amino Transferase 97 U/L (5-37); Bilirubin Total 0.9 mg/dL (0.0-1.0); Blood Urea Nitrogen 22 mg/dL (9-16); Calcium 8.7 mg/dL (8.4-10.2); Carbon Dioxide 26 mmol/L (22-29); Chloride 102 mmol/L (96-108); Creatinine Clr Calc Pharmacy 79.2; Estimated Glomerular Filt Rate > 60; Ethanol < 10 mg/dL; Glucose Random 130 mg/dL (60-115); Potassium 3.4 mmol/L (3.3-5.1); Salicylate < 5.0 mg/dL (15-30); Sodium 134 mmol/L (135-145); Total Protein 7.1 g/dL (6.5-8.0)
--- NOTE | 2021-08-20 14:43 | PC.NURSE ---
Jacky RN from [facility] ([phone]) calling regarding patient's medication. Pt is receiving tx for Hep C. It's unclear if patient received this am med. Pt will be given at rest home if/when he's discharged. If he does stay overnight in ED on 08/20 then resthome should provide mediation. Epclusa 1 tab given in AM. [facility] home is [phone] [facility].
--- NOTE | 2021-08-20 18:26 | PC.NURSE ---
continues to sleep
--- NOTE | 2021-08-20 19:17 | MHC.CARE ---
CARE team met with pt for a risk screening. Pt still appears under the influence at this time. Pt is cooperative however limited engagement. Pt states that he wants to go home tomorrow due to needing to go to court to pay something . Pt reports vague SI such as I want to be . Pt will remain in the ED until tomorrow morning when he is much more sober and can discharge him more safely. CARE outpatient coordinator and ED provider aware.
[2021-08-20 21:46] VITALS: BP 114/75; PULSE 79; RESP 20; TEMP 36.1; O2SAT 97
[2021-08-20 23:41] VITALS: BP 114/72; PULSE 75; RESP 16; TEMP 36.7; O2SAT 95
[2021-08-21 04:30] VITALS: BP 97/72; PULSE 82; RESP 17; TEMP 36.9; O2SAT 98
--- NOTE | 2021-08-21 06:09 | PC.NURSE ---
Patient slept through the night, no distress observed/reported, currently not on any medication, disposition per care team is discharge in the morning, VSS, behavior non concerning, will continue to monitor
--- NOTE | 2021-08-21 07:11 | PC.NURSE ---
patient appears to remain asleep at present respirations are even and unlabored patient appears in no diostress
--- NOTE | 2021-08-21 09:53 | MHC.CARE ---
Plan for Pt to be discharged home. Pt does not endorse current SI/HI/AH/VH. Pt provided N crisis information.
== END 2021-08-21 11:19 | disposition home or self-care (01) ==
PROVIDERS: Physician Assistant Medical; Emergency Provider Emergency Medicine
DX: F33.1 Major depressive disorder, recurrent, moderate (principal); R45.851 Suicidal ideations; F17.210 Nicotine dependence, cigarettes, uncomplicated; Z71.6 Tobacco abuse counseling; Z79.899 Other long term (current) drug therapy; Z20.822 Contact with and (suspected) exposure to COVID-19
CPT/HCPCS: 36415; 80053; 80143; 80179; 80307; 82077; 85025; 87635; 93005; 99284

== ENCOUNTER 2021-09-02 12:40 | Emergency (ER) | payer MEDICAID, SELFPAY ==
[2021-09-02 12:58] VITALS: BP 100/68; BP 99/65; PULSE 114; PULSE 126; RESP 20; TEMP 36.7; O2SAT 92; O2SAT 94; BMI 19.9
--- NOTE | 2021-09-02 13:13 | ED.PSYCH ---
HPI - Psych General Chief Complaint: ETOH/Substance Use Stated Complaint: ABNORMAL BEHAVIOR S/P COCAINE/HEROIN USE PER EMS Time Seen by Provider: 09/02/21 12:50 Source: patient Mode of arrival: ambulatory Limitations: no limitations History of Present Illness MD complaint: substance abuse Onset (ago): year(s) Duration: constant History of same: Yes Relieving factors: none Exacerbating factors: drug use Context: recent drug abuse Associated psychiatric symptoms: depression Associated symptoms: denies other symptoms Treatments prior to arrival: none Related Data Home Medications Medication Instructions Recorded Confirmed aspirin 81 mg tablet,delayed 1 tab PO DAILY 08/13/21 08/13/21 release atorvastatin 20 mg tablet 1 tab PO DAILY 08/13/21 08/13/21 buprenorphine 8 mg-naloxone 2 mg 1 strip sublingual BID 08/13/21 08/13/21 sublingual film (Suboxone) clopidogrel 75 mg tablet 1 tab PO DAILY 08/13/21 08/13/21 cyanocobalamin (vitamin B-12) 500 1 tab PO DAILY 08/13/21 08/13/21 mcg tablet escitalopram oxalate 20 mg tablet 1 tab PO DAILY 08/13/21 08/13/21 folic acid 1 mg tablet 1 tab PO DAILY 08/13/21 08/13/21 levothyroxine 50 mcg tablet 1 tab PO QAM 08/13/21 08/13/21 multivitamin (One Daily 1 tab PO DAILY 08/13/21 08/13/21 Multivitamin tablet) nicotine 21 mg/24 hr daily 21 mg topical DAILY 08/13/21 08/13/21 transdermal patch Allergies Allergy/AdvReac Type Severity Reaction Status Date / Time Onions Allergy Swelling Uncoded 08/20/21 12:02 Review of Systems Review of Systems: Constitutional : No Fever, No Chills ENT/Mouth : No Ear Pain, No Nasal Congestion, No sore throat Eyes: No Eye Pain, No Swelling, No Redness Cardiovascular : No Chest Pain, No SOB Respiratory : No Cough, No Sputum, No Dyspnea Gastrointestinal : No Nausea, No Vomiting, No Diarrhea, No Hematochezia, No Melena Genitourinary : No Dysuria, No Urinary Frequency, No Hematuria Musculoskeletal : No Myalgias Skin : No Skin Lesions, No rash Neuro : No Weakness, No Numbness, No Paresthesias, No Dizziness, No Headache Psych : positive Anxiety, positive Depression, no SI/HI Heme/Lymph: No Lymphadenopathy Endocrine : No Polyuria, No Polydipsia All other systems reviewed and are negative [facility] Past Medical History Attestation statement: The following information was validated with the patient. Medical History AIDS Asthma Cocaine use disorder, severe, dependence Depression Hepatitis C HIV (human immunodeficiency virus infection) MDD (major depressive disorder), recurrent episode, severe Opioid dependence Opioid use disorder, severe, in early remission, on maintenance therapy, dependence Schizoaffective disorder Schizoaffective disorder Tardive dyskinesia Social History Social History Household Members: Other Household Members Other:: Patient resides in [facility]. Housing: Assisted Living Facility Housing Other:: Retirement [facility] Home Do you presently have visiting nurse or other home services: Yes Unable to assess alcohol history related to: Unknown Alcohol intake: unknown Patient Tobacco Use Status: Refuse Tobacco use screen Tobacco use type: Cigarette Cigarette Packs Per Day: 1 Cigarettes Per Day: 20.0 Years Smoked: 40 e-Cigarette/Vaping Use: Former Use Second Hand Smoke Exposure: No Use of substances other than those prescribed or required for medical reasons: Yes Substance Use Type: Crack/Cocaine and Heroin Advance Directives: Yes Advance Directives on File: Yes Advance Directives Date on File: 01/29/20 service: No Sexual orientation: Straight/Heterosexual Physical Exam Vital Signs: Vital Signs: Last Vital Signs Temp 98.0 F 09/02/21 12:58 Pulse 114 H 09/02/21 12:58 Resp 20 09/02/21 12:58 BP 99/65 09/02/21 12:58 Pulse Ox 94 09/02/21 12:58 O2 Del Method 09/02/21 12:58 BMI result Body Mass Index 19.9 Appearance: Alert. Oriented X3. mild acute distress. anxious flailing rapid speech Eyes: Pupils equal, round and reactive to light. ENT: Pharynx normal. Neck: Normal inspection. Neck supple. CVS: Normal heart rate and rhythm. Pulses normal. Respiratory: No respiratory distress. Breath sounds normal. Abdomen: Soft and non-tender. Skin: Skin warm and diaphoretic. Normal skin color. Normal skin turgor. Extremities: No lower extremity edema. No calf ttp Neuro: Oriented X 3. No motor deficit. No sensory deficit. CN 2-12 intact, intermittent flailing movements, he can hold still when asked to Course Course Course Narrative: Physician observation started at 237pm Patient placed in physician observation because the patient needed more time for medicationsto work and to metabolize his sustances. At the time observation was started the patient's vitals were stable, patient is alert and oriented but slightly agitated - much improved, Neuro: nonfocal, CV RRR, Lungs clear MDM - Psych MDM Narrative Medical decision making narrative: 61 yo male well know to use with hx of mental health issues and substance abuse disorders here with c/o heroin and cocaine abuse - at this time will obtain labs, give PO ativan and zyprexa. Will reassess once more clinically sober Lab Data Result diagrams: 09/02/21 13:47 09/02/21 13:47 Labs: Lab Results 09/02/21 09/02/21 09/02/21 Range/Units 13:47 13:47 13:47 WBC 7.5 (4.8-10.8) X10*3/uL RBC 4.34 L (4.60-5.80) X10*6/uL Hgb 13.1 L (14.0-18.0) g/dl Hct 39.0 L (42.0-52.0) % MCV 89.9 (80.0-98.0) fL MCH 30.2 (27.0-33.0) pg MCHC 33.6 (31.0-36.0) g/dl RDW 14.8 (11.0-16.0) % Plt Count 142 L (160-400) X10*3/uL MPV 10.4 (9.4-12.4) fL Immature Gran % (Auto) 0.4 (0.0-0.4) % Neut % (Auto) 81.8 H (45-73) % Lymph % (Auto) 6.3 L (20-40) % [place] % (Auto) 10.8 (2-11) % Eos % (Auto) 0.4 (0-4) % Baso % (Auto) 0.3 (0-2) % Lymph # (Auto) 0.5 L (1.2-4.9) X10*3/uL [place] # (Auto) 0.8 (0.1-1.2) X10*3/uL Eos # (Auto) 0.0 (0.0-0.4) X10*3/uL Baso # (Auto) 0.0 (0.0-0.2) X10*3/uL Abs Immat Gran (auto) 0.03 (0.00-0.03) X10*3/uL Absolute Neuts (auto) 6.1 (2.0-8.3) x10*3/uL Absolute Nucleated RBC 0.000 (0.0-0.012) X10*3/uL Nucleated RBC % (auto) 0.0 (0.0-0.2) /100WBC Sodium 138 (135-145) mmol/L Potassium 4.6 D (3.3-5.1) mmol/L Chloride 106 (96-108) mmol/L Carbon Dioxide 25 (22-29) mmol/L Anion Gap 12 (12-20) BUN 19 H (9-16) mg/dL Creatinine 1.20 (0.5-1.4) mg/dL Estim Creat Clear Calc 50.5 Estimated GFR > 60 Random Glucose 101 (60-115) mg/dL Calcium 9.3 D (8.4-10.2) mg/dL Magnesium 2.1 (1.6-2.6) mg/dL Total Bilirubin 0.3 (0.0-1.0) mg/dL Direct Bilirubin 0.2 (0.0-0.5) mg/dL AST 78 H (5-37) U/L ALT 54 H (0-40) U/L Alkaline Phosphatase 114 D (39-117) U/L Total Protein 7.8 (6.5-8.0) g/dL Albumin 3.9 (3.5-5.0) g/dL Salicylates < 5.0 L (15-30) mg/dL Acetaminophen < 1 (<30) mcg/mL COVID-19 (NEETU) Negative (Negative) COVID-19 Clin Com See Note Discharge Plan Discharge Clinical Impression: Active substance abuse Patient Disposition: Still a Patient Prescriptions: No Action multivitamin [One Daily Multivitamin] Tablet 1 tab PO DAILY atorvastatin 20 mg tablet 1 tab PO DAILY clopidogrel 75 mg tablet 1 tab PO DAILY aspirin 81 mg tablet,delayed release (DR/EC) 1 tab PO DAILY cyanocobalamin (vitamin B-12) 500 mcg tablet 1 tab PO DAILY levothyroxine 50 mcg tablet 1 tab PO QAM nicotine 21 mg/24 hr patch 24 hour 21 mg topical DAILY folic acid 1 mg tablet 1 tab PO DAILY escitalopram oxalate 20 mg tablet 1 tab PO DAILY buprenorphine-naloxone [Suboxone] 8-2 mg film 1 strip sublingual BID
[2021-09-02] MEDS: OLANZapine 5 MG TABLET PO (13:18)
[2021-09-02] MEDS: LORazepam 1 MG TABLET 2 MG PO (13:19)
[2021-09-02 13:51] LABS: MANUAL DIFF FLAG NO
[2021-09-02 13:53] LABS: Basophils Percent Auto 0.3 % (0-2); Eosinophils Percent Auto 0.4 % (0-4); Hemoglobin 13.1 g/dl (14.0-18.0); Imm Gran Abs Auto 0.03 X10*3/uL (0.00-0.03); Imm Gran Pct Auto 0.4 % (0.0-0.4); Lymphocytes Absolute Auto 0.5 X10*3/uL (1.2-4.9); Lymphocytes Percent Auto 6.3 % (20-40); Mean Corpuscular HGB Conc 33.6 g/dl (31.0-36.0); Mean Corpuscular Hemoglobin 30.2 pg (27.0-33.0); Mean Corpuscular Volume 89.9 fL (80.0-98.0); Mean Platelet Volume 10.4 fL (9.4-12.4); Monocytes Absolute Auto 0.8 X10*3/uL (0.1-1.2); Monocytes Percent Auto 10.8 % (2-11); Neutrophils Absolute Auto 6.1 x10*3/uL (2.0-8.3); Neutrophils Percent Auto 81.8 % (45-73); Platelet Count 142 X10*3/uL (160-400); Red Blood Count 4.34 X10*6/uL (4.60-5.80); Red Cell Distribution Width 14.8 % (11.0-16.0); White Blood Count 7.5 X10*3/uL (4.8-10.8)
[2021-09-02 14:18] LABS: COVID-19 Test Negative (Negative); IDNOW Serial# 16C4AD1C
[2021-09-02 14:23] LABS: Alanine Aminotransferase 54 U/L (0-40); Albumin Level 3.9 g/dL (3.5-5.0); Alkaline Phosphatase 114 U/L (39-117); Anion Gap 12 (12-20); Aspartate Amino Transferase 78 U/L (5-37); Bilirubin Direct 0.2 mg/dL (0.0-0.5); Bilirubin Total 0.3 mg/dL (0.0-1.0); Blood Urea Nitrogen 19 mg/dL (9-16); Calcium 9.3 mg/dL (8.4-10.2); Carbon Dioxide 25 mmol/L (22-29); Chloride 106 mmol/L (96-108); Creatinine Clr Calc Pharmacy 50.5; Estimated Glomerular Filt Rate > 60; Glucose Random 101 mg/dL (60-115); Magnesium 2.1 mg/dL (1.6-2.6); Potassium 4.6 mmol/L (3.3-5.1); Sodium 138 mmol/L (135-145); Total Protein 7.8 g/dL (6.5-8.0)
[2021-09-02 14:32] LABS: Acetaminophen LAB < 1 mcg/mL (<30); Salicylate < 5.0 mg/dL (15-30)
== END 2021-09-02 17:28 | disposition home or self-care (01) ==
PROVIDERS: Emergency Provider Emergency Medicine
DX: F11.29 Opioid dependence with unspecified opioid-induced disorder (principal); F33.1 Major depressive disorder, recurrent, moderate; F14.90 Cocaine use, unspecified, uncomplicated; F17.210 Nicotine dependence, cigarettes, uncomplicated; Z20.822 Contact with and (suspected) exposure to COVID-19; Z79.899 Other long term (current) drug therapy; Z71.6 Tobacco abuse counseling
CPT/HCPCS: 36415; 80048; 80076; 80143; 80179; 83735; 85025; 87635; 99283

== ENCOUNTER 2021-09-03 16:56 | Emergency (ER) | payer MEDICAID, SELFPAY ==
--- NOTE | 2021-09-03 16:59 | ED.PSYCH ---
HPI - Psych General Chief Complaint: ETOH/Substance Use Stated Complaint: ams s/p cocaine use Source: patient and EMS Mode of arrival: EMS Limitations: no limitations History of Present Illness HPI Narrative: 61-year-old male presents via EMS for bizarre behavior. Patient was flailing his arms and screaming while walking on the street. Patient reports using cocaine earlier today. He has been out in the heat all day, and states that he had not had much to drink or eat. Patient denies chest pain or pressure, palpitations, shortness of breath, abdominal pain, fevers or chills. MD complaint: substance abuse Onset (ago): year(s) Duration: constant History of same: Yes Relieving factors: none Exacerbating factors: drug use Context: recent drug abuse Associated psychiatric symptoms: none Associated symptoms: denies other symptoms Treatments prior to arrival: none Related Data Home Medications Medication Instructions Recorded Confirmed aspirin 81 mg tablet,delayed 1 tab PO DAILY 08/13/21 08/13/21 release atorvastatin 20 mg tablet 1 tab PO DAILY 08/13/21 08/13/21 buprenorphine 8 mg-naloxone 2 mg 1 strip sublingual BID 08/13/21 08/13/21 sublingual film (Suboxone) clopidogrel 75 mg tablet 1 tab PO DAILY 08/13/21 08/13/21 cyanocobalamin (vitamin B-12) 500 1 tab PO DAILY 08/13/21 08/13/21 mcg tablet escitalopram oxalate 20 mg tablet 1 tab PO DAILY 08/13/21 08/13/21 folic acid 1 mg tablet 1 tab PO DAILY 08/13/21 08/13/21 levothyroxine 50 mcg tablet 1 tab PO QAM 08/13/21 08/13/21 multivitamin (One Daily 1 tab PO DAILY 08/13/21 08/13/21 Multivitamin tablet) nicotine 21 mg/24 hr daily 21 mg topical DAILY 08/13/21 08/13/21 transdermal patch Allergies Allergy/AdvReac Type Severity Reaction Status Date / Time Onions Allergy Swelling Uncoded 08/20/21 12:02 Review of Systems Review of Systems: Constitutional: No Fever, No Chills ENT/Mouth: No sore throat, No Rhinorrhea Eyes: No Eye Pain, No Swelling, No Redness Cardiovascular: No Chest Pain, No SOB Respiratory: No Cough, No Sputum Gastrointestinal: No Nausea, No Vomiting, No Diarrhea, No abdominal Pain Genitourinary: No Dysuria, No Hematuria Musculoskeletal: No joint pain, No Myalgias, No Joint Swelling Skin: No Skin Lesions, No rash Neuro: No Weakness, No Numbness, No Loss of Consciousness, No Dizziness, No Headache Psych: Positive cocaine abuse, No Anxiety, No Depression, No SI/HI/AH/VH Heme/Lymph: No Bruising, No Bleeding,No Lymphadenopathy Endocrine: No Polyuria, No Polydipsia Yes all other systems are reviewed and are negative [facility] Past Medical History Attestation statement: The following information was validated with the patient. Source: old records reviewed Medical History AIDS Asthma Cocaine use disorder, severe, dependence Depression Hepatitis C HIV (human immunodeficiency virus infection) MDD (major depressive disorder), recurrent episode, severe Opioid dependence Opioid use disorder, severe, in early remission, on maintenance therapy, dependence Schizoaffective disorder Schizoaffective disorder Tardive dyskinesia Social History Social History Household Members: Other Household Members Other:: Patient resides in retirement. Housing: Assisted Living Facility Housing Other:: Skilled Nursing [facility] Do you presently have visiting nurse or other home services: Yes Unable to assess alcohol history related to: Unknown Alcohol intake: unknown Patient Tobacco Use Status: Refuse Tobacco use screen Tobacco use type: Cigarette Cigarette Packs Per Day: 1 Cigarettes Per Day: 20.0 Years Smoked: 40 e-Cigarette/Vaping Use: Former Use Second Hand Smoke Exposure: No Substance Use Type: Crack/Cocaine and Heroin Advance Directives: No Advance Directives Information Provided: No Advance Directives Date on File: 01/29/20 service: No Sexual orientation: Straight/Heterosexual Physical Exam Vital Signs: Vital Signs: Last Vital Signs Temp 98.5 F 09/03/21 18:16 Pulse 104 H 09/03/21 17:00 Resp 20 09/03/21 17:00 BP 115/70 09/03/21 17:00 Pulse Ox 93 09/03/21 17:00 O2 Del Method 09/03/21 17:00 BMI result Body Mass Index 19.0 Appearance: Alert. Oriented X3. No acute distress. Eyes: Pupils equal, round and reactive to light. ENT: Pharynx normal. Neck: Normal inspection. Neck supple. CVS: Normal heart rate and rhythm. Pulses normal. Respiratory: No respiratory distress. Breath sounds normal. Abdomen: Soft and nontender. Skin: Skin warm and dry. Normal skin color. Normal skin turgor. Extremities: Moves all extremities spontaneously. Neuro: No motor deficit. No sensory deficit. Cranial nerves 2-12 intact. Course Course Course Narrative: 61-year-old male presents via EMS for bizarre behavior. Patient's behavior is at his baseline, this patient is well-known to this facility. Patient is flailing his arms and legs and screaming, intermittently singing songs. Patient noted to have an elevated temperature, most likely due to heat. Patient has been out in the sun for most of the day. He also reports not eating or drinking too much today. Will give him p.o. fluids, Tylenol, and cooling measures. 17:39 patient eating and drinking without difficulty. Behavior is at baseline. Denies SI HI. Is not interested in detox. 18:23 COVID influenza negative. Temperature 98.5 degrees oral. Again, patient declines detox at this time plan of care is to discharge home. Patient verbalized understanding of and agrees to plan. MDM - Psych Differential Diagnosis Differential diagnosis: Likely drug-induced psychotic disorder and substance abuse Medical Records Attestation: I reviewed the patient's medical records. Lab Data Attestation: I reviewed the patient's lab results. Labs: Lab Results 09/03/21 09/03/21 Range/Units 17:45 17:45 COVID-19 ([facility]) Negative (Negative) COVID-19 Clin Com See Note Influenza Type A (EPI) Negative (Negative) Influenza Type B (EPI) Negative (Negative) Influenza A & B Note See Note Discharge Plan Discharge Clinical Impression: Cocaine use disorder, moderate, dependence, Active substance abuse Patient Disposition: Home, Self-Care Instructions: Cocaine Abuse (ED) Additional Instructions: Consider detox. Thank you for choosing this emergency department for evaluation. Please follow-up with primary care physician as needed. Return to the emergency department for any new, concerning, or worsening symptoms. Prescriptions: No Action multivitamin [One Daily Multivitamin] Tablet 1 tab PO DAILY atorvastatin 20 mg tablet 1 tab PO DAILY clopidogrel 75 mg tablet 1 tab PO DAILY aspirin 81 mg tablet,delayed release (DR/EC) 1 tab PO DAILY cyanocobalamin (vitamin B-12) 500 mcg tablet 1 tab PO DAILY levothyroxine 50 mcg tablet 1 tab PO QAM nicotine 21 mg/24 hr patch 24 hour 21 mg topical DAILY folic acid 1 mg tablet 1 tab PO DAILY escitalopram oxalate 20 mg tablet 1 tab PO DAILY buprenorphine-naloxone [Suboxone] 8-2 mg film 1 strip sublingual BID Interventions: ED Discharge Assessment Last Done: 09/03/21 18:53 Discharge Date/Time: 09/03/21 18:53
[2021-09-03 17:00] VITALS: BP 115/70; BP 99/61; PULSE 104; PULSE 113; RESP 20; TEMP 38.7; O2SAT 93; O2SAT 97; BMI 19.0
[2021-09-03] MEDS: Acetaminophen 325 MG TABLET 650 MG PO (17:56)
[2021-09-03 18:09] LABS: IDNOW Serial# 16C4AD1C; Influenza A Negative (Negative); Influenza B2 Negative (Negative)
[2021-09-03 18:10] LABS: COVID-19 Test Negative (Negative)
[2021-09-03 18:16] VITALS: TEMP 36.9
== END 2021-09-03 18:53 | disposition home or self-care (01) ==
PROVIDERS: Nurse Practitioner Family; Emergency Provider Internal Medicine
DX: F14.29 Cocaine dependence with unspecified cocaine-induced disorder (principal); F19.10 Other psychoactive substance abuse, uncomplicated; Z20.822 Contact with and (suspected) exposure to COVID-19; B20 Human immunodeficiency virus [HIV] disease; F25.1 Schizoaffective disorder, depressive type; F17.210 Nicotine dependence, cigarettes, uncomplicated; F11.20 Opioid dependence, uncomplicated; Z79.82 Long term (current) use of aspirin; Z79.02 Long term (current) use of antithrombotics/antiplatelets; Z79.899 Other long term (current) drug therapy
CPT/HCPCS: 87502; 87635; 99283; 99284

== ENCOUNTER 2021-09-10 19:40 | Inpatient (IN) | payer MEDICAID, SELFPAY ==
[2021-09-10 19:48] VITALS: BP 130/64; PULSE 87; RESP 18; TEMP 36.6; O2SAT 98; BMI 25.0
--- NOTE | 2021-09-10 20:03 | MHC.RECOVSUP ---
? Reason for consult:Recovery Support o Current location:[facility] o Identified substance use concern:PCP - Support ? Intervention: o ? Plan: ? Additional information:Per Cheryl, patient to impaired to speak to.
--- NOTE | 2021-09-10 20:16 | ED_ITS ---
HPI - Psych General Chief Complaint: ETOH/Substance Use <LOVELY Esquivel - Last Filed: 09/11/21 02:39> Stated Complaint: pcp/si <LOVELY Esquivel - Last Filed: 09/11/21 02:39> Time Seen by Provider: 09/10/21 20:16 <LOVELY Esquivel - Last Filed: 09/11/21 02:39> Source: patient and EMS <LOVELY Esquivel - Last Filed: 09/11/21 02:39> Mode of arrival: EMS <LOVELY Esquivel Last Filed: 09/11/21 02:39> Limitations: other (Appears to be under the influence of drugs) <LOVELY Esquivel Last Filed: 09/11/21 02:39> History of Present Illness HPI Narrative: 61-year-old male past medical history significant for schizoaffective diso rder, opiate use disorder, cocaine use disorder, neurocognitive disorder due to HIV infection, major depression, HIV, hepatitis-C, tardive dyskinesia, depression presenting to the emergency department with PCP use and suicidal ideation. Presenting via ambulance with a erratic behavior. Patient poor historian likely secondary to polysubstance abuse. Unable to provide me a great history. Says he is suicidal however no specific plan. Denies visual, auditory and tactile hallucinations. No other medical complaints at this time. <LOVELY Esquivel - Last Filed: 09/11/21 02:39> MD complaint: suicidal ideation <LOVELY Esquivel Last Filed: 09/11/21 02:39> Onset (ago): day(s) (1) <LOVELY Esquivel Last Filed: 09/11/21 02:39> Duration: constant <LOVELY Esquivel Last Filed: 09/11/21 02:39> History of same: Yes <LOVELY Esquivel Last Filed: 09/11/21 02:39> Relieving factors: none <LOVELY Esquivel Last Filed: 09/11/21 02:39> Exacerbating factors: none <LOVELY Esquivel Last Filed: 09/11/21 02:39> Associated psychiatric symptoms: none <LOVELY Esquivel Last Filed: 09/11/21 02:39> Associated symptoms: denies other symptoms <LOVELY Esquivel Last Filed: 09/11/21 02:39> Treatments prior to arrival: none <LOVELY Esquivel Last Filed: 09/11/21 02:39> Related Data Home Medications: Home Medications Medication Instructions Recorded Confirmed aspirin 81 mg tablet,delayed 1 tab PO DAILY 08/13/21 09/10/21 release atorvastatin 20 mg tablet 1 tab PO DAILY 08/13/21 09/10/21 folic acid 1 mg tablet 1 tab PO DAILY 08/13/21 09/10/21 levothyroxine 50 mcg tablet 1 tab PO QAM 08/13/21 09/10/21 multivitamin (One Daily 1 tab PO DAILY 08/13/21 09/10/21 Multivitamin tablet) nicotine 21 mg/24 hr daily 21 mg topical DAILY 08/13/21 09/10/21 transdermal patch buprenorphine 8 mg-naloxone 2 mg 1 strip sublingual BID 09/10/21 09/10/21 sublingual film (Suboxone) <LOVELY Esquivel Last Filed: 09/11/21 02:39> Allergies/Adverse Reactions: Allergies Allergy/AdvReac Type Severity Reaction Status Date / Time Onions Allergy Swelling Uncoded 08/20/21 12:02 <LOVELY Esquivel Last Filed: 09/11/21 02:39> Review of Systems Review of Systems: Constitutional : No Fever, No Chills ENT/Mouth : No sore throat, No Rhinorrhea Eyes: No Eye Pain, No Swelling, No Redness Cardiovascular : No Chest Pain, No SOB Respiratory : No Cough, No Sputum Gastrointestinal : No Nausea, No Vomiting, No Diarrhea, No abdominal Pain Genitourinary : No Dysuria, No Hematuria Musculoskeletal : No joint pain, No Myalgias, No Joint Swelling Skin : No Skin Lesions, No rash Neuro : No Weakness, No Numbness Psych : No Anxiety, No Depression, + SI, No HI/AH/VH All other systems reviewed and are negative <LOVELY Esquivel Filed: 09/11/21 02:39> Yes all other systems are reviewed and are negative <LOVELY Esquivel - Last Filed: 09/11/21 02:39> [facility] Past Medical History Attestation statement: The following information was validated with the patient. <LOVELY Esquivel - Last Filed: 09/11/21 02:39> Source: old records reviewed and nursing notes reviewed <LOVELY Esquivel - Last Filed: 09/11/21 02:39> Medical History: Medical History AIDS Asthma Cocaine use disorder, severe, dependence Depression Hepatitis C HIV (human immunodeficiency virus infection) MDD (major depressive disorder), recurrent episode, severe Opioid dependence Opioid use disorder, severe, in early remission, on maintenance therapy, dependence Schizoaffective disorder Schizoaffective disorder Tardive dyskinesia <LOVELY Esquivel - Last Filed: 09/11/21 02:39> Social History Social History: Social History Household Members: Other Household Members Other:: Patient resides in half-way. Housing: Assisted Living Facility Housing Other:: [facility] Do you presently have visiting nurse or other home services: Yes Unable to assess alcohol history related to: Unknown Alcohol intake: unknown Patient Tobacco Use Status: Refuse Tobacco use screen Tobacco use type: Cigarette Cigarette Packs Per Day: 1 Cigarettes Per Day: 20.0 Years Smoked: 40 e-Cigarette/Vaping Use: Former Use Second Hand Smoke Exposure: No Substance Use Type: Crack/Cocaine and Heroin Advance Directives: Yes Advance Directives on File: Yes Advance Directives Date on File: 01/29/20 service: No Sexual orientation: Straight/Heterosexual <LOVELY Esquivel - Last Filed: 09/11/21 02:39> Physical Exam Vital Signs: Vital Signs: Last Vital Signs Temp 97.8 F 09/10/21 19:48 Pulse 87 09/10/21 19:48 Resp 18 09/10/21 19:48 BP 130/64 09/10/21 19:48 Pulse Ox 98 09/10/21 19:48 O2 Del Method 09/10/21 19:48 BMI result Body Mass Index 25.0 VSS <LOVELY Esquivel - Last Filed: 09/11/21 02:39> Vital Signs: Last Vital Signs Temp 97.8 F 09/10/21 19:48 Pulse 87 09/10/21 19:48 Resp 18 09/10/21 19:48 BP 130/64 09/10/21 19:48 Pulse Ox 98 09/10/21 19:48 O2 Del Method 09/10/21 19:48 BMI result Body Mass Index 25.0 <Jean Pierre Farrell MD - Last Filed: 09/11/21 04:16> Appearance: Alert.? Oriented X3.? No acute distress.? Intermittent erratic behavior. Head: Normocephalic, atraumatic, no step-offs or deformities Eyes: Pupils equal, round and reactive to light.? ENT: Pharynx normal.? Neck: Normal inspection.? Neck supple.? CVS: Normal heart rate and rhythm.? Pulses normal.? Respiratory: No respiratory distress.? Breath sounds normal.? Abdomen: Soft and nontender.? Skin: Skin warm and dry.? Normal skin color.? Normal skin turgor.? Extremities: No lower extremity edema.? No calf ttp. 5/5 strength to bilateral upper and lower extremities Neuro: Oriented X 3.? No motor deficit.? No sensory deficit. CN 2-12 intact <LOVELY Esquivel - Last Filed: 09/11/21 02:39> Course Reevaluation(s) Reevaluation #1: Spoke to the staff in the POD who report patient is not staying still enough for blood draws and patient has not given us a sample. <LOVELY Esquivel - Last Filed: 09/11/21 02:39> Time: 01:00 <LOVELY Esquivel - Last Filed: 09/11/21 02:39> Reevaluation #2: UA no acute infection. Toxicology positive for opiates, cocaine, fentanyl.. Patient now with more normalized behavior, tells us he did not hit his head or fall. Appears well and in no acute distress. Vital signs are stable. Patient's CBC appears to be at baseline. Chemistry within elevated potassium of 5.5 and an elevated BUN 52. He will be given low, for his elevated potassium, will obtain a CPK to rule out rhabdomyolysis as his BUN is significantly elevated. Will give report to Dr. Farrell. Will hold on placing patient in to physician observation total creatinine kinase is back. <LOVELY Esquivel - Last Filed: 09/11/21 02:39> Time: 02:26 <LOVELY Esquivel - Last Filed: 09/11/21 02:39> Reevaluation #3: Critical value was called from the lab, the patient's CPK is [id number], this is consistent with rhabdomyolysis. Patient does have an elevated BUN of 52 with a creatinine of 1.22. Patient also has elevated LFTs. Urinalysis revealed 3+ blood but microscopic only revealed 1-4 RBCs, this is consistent with myoglobinuria. Patient's tox screen was positive for opiates, fentanyl and cocaine. COVID-19 was negative. Patient's presentation is consistent with acute rhabdomyolysis possibly precipitated by his cocaine use. The patient will be placed in emergency department bed in treated with normal saline IV x2 L. I will discuss admission with the covering hospitalist. <Jean Pierre Farrell MD - Last Filed: 09/11/21 04:16> Time: 04:12 <Jean Pierre Farrell MD - Last Filed: 09/11/21 04:16> MDM - Psych MDM Narrative Medical decision making narrative: 2001 61 year old male presents with suspected polysubstance abuse, and states he is suicidal with no specific plan. Patient is well known to our facility, this is his typical presentation after polysubstance abuse Physical examination with patient exhibiting erratic behavior. Plan at this time is basic labs, salicylate, acetaminophen level, urine, urine toxicology. Due to patient's behavior he will be given a small dose of Ativan. <LOVELY Esquivel - Last Filed: 09/11/21 02:39> Medical Records Attestation: I reviewed the patient's medical records. <LOVELY Esquivel - Last Filed: 09/11/21 02:39> Lab Data Attestation: I reviewed the patient's lab results. <LOVELY Esquivel - Last Filed: 09/11/21 02:39> Result diagrams: : 09/11/21 01:57 09/11/21 01:57 <LOVELY Esquivel - Last Filed: 09/11/21 02:39> Labs: Lab Results 09/10/21 09/11/21 09/11/21 Range/Units 20:02 01:16 01:16 WBC (4.8-10.8) X10*3/uL RBC (4.60-5.80) X10*6/uL Hgb (14.0-18.0) g/dl Hct (42.0-52.0) % MCV (80.0-98.0) fL MCH (27.0-33.0) pg MCHC (31.0-36.0) g/dl RDW (11.0-16.0) % Plt Count (160-400) X10*3/uL MPV (9.4-12.4) fL Immature Gran % (Auto) (0.0-0.4) % Neut % (Auto) (45-73) % Lymph % (Auto) (20-40) % [place] % (Auto) (2-11) % Eos % (Auto) (0-4) % Baso % (Auto) (0-2) % Lymph # (Auto) (1.2-4.9) X10*3/uL [place] # (Auto) (0.1-1.2) X10*3/uL Eos # (Auto) (0.0-0.4) X10*3/uL Baso # (Auto) (0.0-0.2) X10*3/uL Abs Immat Gran (auto) (0.00-0.03) X10*3/uL Absolute Neuts (auto) (2.0-8.3) x10*3/uL Absolute Nucleated RBC (0.0-0.012) X10*3/uL Nucleated RBC % (auto) (0.0-0.2) /100WBC Sodium (135-145) mmol/L Potassium (3.3-5.1) mmol/L Chloride (96-108) mmol/L Carbon Dioxide (22-29) mmol/L Anion Gap (12-20) BUN (9-16) mg/dL Creatinine (0.5-1.4) mg/dL Estim Creat Clear Calc Estimated GFR Random Glucose (60-115) mg/dL Calcium (8.4-10.2) mg/dL Total Bilirubin (0.0-1.0) mg/dL AST (5-37) U/L ALT (0-40) U/L Alkaline Phosphatase (39-117) U/L Total Creatine Kinase (38-174) U/L Total Protein (6.5-8.0) g/dL Albumin (3.5-5.0) g/dL Urine Color YELLOW Urine Appearance CLEAR Urine pH 5.5 (5.0-8.0) Ur Specific [place] >= 1.030 H (1.005-1.025) Urine Protein TRACE (NEG-TRACE) MG/DL Urine Glucose (UA) NEG (NEG) MG/DL Urine Ketones NEG (NEG) MG/DL Urine Blood 3+ H (NEG) Urine Nitrite NEG (NEG) Ur Leukocyte Esterase NEG (NEG) Urine RBC 1-4 (0) /HPF Urine WBC 0-2 (0-4) /HPF Ur Squamous Epith Cells TRACE /LPF Urine Bacteria NONE /LPF Salicylates (15-30) mg/dL Urine Opiates Screen POSITIVE H (Not Detect) Urine Fentanyl Screen POSITIVE H (Not Detect) Acetaminophen (<30) mcg/mL Ur Barbiturates Screen Not Detected (Not Detect) Ur Phencyclidine Scrn Not Detected (Not Detect) Ur Amphetamines Screen Not Detected (Not Detect) U Benzodiazepines Scrn Not Detected (Not Detect) Urine Cocaine Screen POSITIVE H (Not Detect) U Marijuana (THC) Screen Not Detected (Not Detect) Ethyl Alcohol mg/dL COVID-19 (NEETU) Negative (Negative) COVID-19 Clin Com See Note 09/11/21 09/11/21 09/11/21 Range/Units 01:57 01:57 01:57 WBC 7.5 (4.8-10.8) X10*3/uL RBC 4.43 L (4.60-5.80) X10*6/uL Hgb 13.2 L (14.0-18.0) g/dl Hct 38.7 L (42.0-52.0) % MCV 87.4 (80.0-98.0) fL MCH 29.8 (27.0-33.0) pg MCHC 34.1 (31.0-36.0) g/dl RDW 14.2 (11.0-16.0) % Plt Count 177 (160-400) X10*3/uL MPV 9.7 (9.4-12.4) fL Immature Gran % (Auto) 0.4 (0.0-0.4) % Neut % (Auto) 72.8 (45-73) % Lymph % (Auto) 12.6 L (20-40) % [place] % (Auto) 14.1 H (2-11) % Eos % (Auto) 0.0 (0-4) % Baso % (Auto) 0.1 (0-2) % Lymph # (Auto) 0.9 L (1.2-4.9) X10*3/uL [place] # (Auto) 1.1 (0.1-1.2) X10*3/uL Eos # (Auto) 0.0 (0.0-0.4) X10*3/uL Baso # (Auto) 0.0 (0.0-0.2) X10*3/uL Abs Immat Gran (auto) 0.03 (0.00-0.03) X10*3/uL Absolute Neuts (auto) 5.4 (2.0-8.3) x10*3/uL Absolute Nucleated RBC 0.000 (0.0-0.012) X10*3/uL Nucleated RBC % (auto) 0.0 (0.0-0.2) /100WBC Sodium 137 (135-145) mmol/L Potassium 5.5 H (3.3-5.1) mmol/L Chloride 99 (96-108) mmol/L Carbon Dioxide 27 (22-29) mmol/L Anion Gap 17 (12-20) BUN 52 H D (9-16) mg/dL Creatinine 1.22 (0.5-1.4) mg/dL Estim Creat Clear Calc 56.6 Estimated GFR > 60 Random Glucose 92 (60-115) mg/dL Calcium 9.6 (8.4-10.2) mg/dL Total Bilirubin 0.8 (0.0-1.0) mg/dL AST 167 H (5-37) U/L ALT 56 H (0-40) U/L Alkaline Phosphatase 132 H (39-117) U/L Total Creatine Kinase 8656 H D (38-174) U/L Total Protein 8.6 H (6.5-8.0) g/dL Albumin 4.3 (3.5-5.0) g/dL Urine Color Urine Appearance Urine pH (5.0-8.0) Ur Specific [place] (1.005-1.025) Urine Protein (NEG-TRACE) MG/DL Urine Glucose (UA) (NEG) MG/DL Urine Ketones (NEG) MG/DL Urine Blood (NEG) Urine Nitrite (NEG) Ur Leukocyte Esterase (NEG) Urine RBC (0) /HPF Urine WBC (0-4) /HPF Ur Squamous Epith Cells /LPF Urine Bacteria /LPF Salicylates < 5.0 L (15-30) mg/dL Urine Opiates Screen (Not Detect) Urine Fentanyl Screen (Not Detect) Acetaminophen < 1 (<30) mcg/mL Ur Barbiturates Screen (Not Detect) Ur Phencyclidine Scrn (Not Detect) Ur Amphetamines Screen (Not Detect) U Benzodiazepines Scrn (Not Detect) Urine Cocaine Screen (Not Detect) U Marijuana (THC) Screen (Not Detect) Ethyl Alcohol < 10 mg/dL COVID-19 (NEETU) (Negative) COVID-19 Clin Com <LOVELY Esquivel - Last Filed: 09/11/21 02:39> Lab Results 09/10/21 09/11/21 09/11/21 Range/Units 20:02 01:16 01:16 WBC (4.8-10.8) X10*3/uL RBC (4.60-5.80) X10*6/uL Hgb (14.0-18.0) g/dl Hct (42.0-52.0) % MCV (80.0-98.0) fL MCH (27.0-33.0) pg MCHC (31.0-36.0) g/dl RDW (11.0-16.0) % Plt Count (160-400) X10*3/uL MPV (9.4-12.4) fL Immature Gran % (Auto) (0.0-0.4) % Neut % (Auto) (45-73) % Lymph % (Auto) (20-40) % [place] % (Auto) (2-11) % Eos % (Auto) (0-4) % Baso % (Auto) (0-2) % Lymph # (Auto) (1.2-4.9) X10*3/uL [place] # (Auto) (0.1-1.2) X10*3/uL Eos # (Auto) (0.0-0.4) X10*3/uL Baso # (Auto) (0.0-0.2) X10*3/uL Abs Immat Gran (auto) (0.00-0.03) X10*3/uL Absolute Neuts (auto) (2.0-8.3) x10*3/uL Absolute Nucleated RBC (0.0-0.012) X10*3/uL Nucleated RBC % (auto) (0.0-0.2) /100WBC Sodium (135-145) mmol/L Potassium (3.3-5.1) mmol/L Chloride (96-108) mmol/L Carbon Dioxide (22-29) mmol/L Anion Gap (12-20) BUN (9-16) mg/dL Creatinine (0.5-1.4) mg/dL Estim Creat Clear Calc Estimated GFR Random Glucose (60-115) mg/dL Calcium (8.4-10.2) mg/dL Total Bilirubin (0.0-1.0) mg/dL AST (5-37) U/L ALT (0-40) U/L Alkaline Phosphatase (39-117) U/L Total Creatine Kinase (38-174) U/L Total Protein (6.5-8.0) g/dL Albumin (3.5-5.0) g/dL Urine Color YELLOW Urine Appearance CLEAR Urine pH 5.5 (5.0-8.0) Ur Specific [place] >= 1.030 H (1.005-1.025) Urine Protein TRACE (NEG-TRACE) MG/DL Urine Glucose (UA) NEG (NEG) MG/DL Urine Ketones NEG (NEG) MG/DL Urine Blood 3+ H (NEG) Urine Nitrite NEG (NEG) Ur Leukocyte Esterase NEG (NEG) Urine RBC 1-4 (0) /HPF Urine WBC 0-2 (0-4) /HPF Ur Squamous Epith Cells TRACE /LPF Urine Bacteria NONE /LPF Salicylates (15-30) mg/dL Urine Opiates Screen POSITIVE H (Not Detect) Urine Fentanyl Screen POSITIVE H (Not Detect) Acetaminophen (<30) mcg/mL Ur Barbiturates Screen Not Detected (Not Detect) Ur Phencyclidine Scrn Not Detected (Not Detect) Ur Amphetamines Screen Not Detected (Not Detect) U Benzodiazepines Scrn Not Detected (Not Detect) Urine Cocaine Screen POSITIVE H (Not Detect) U Marijuana (THC) Screen Not Detected (Not Detect) Ethyl Alcohol mg/dL COVID-19 (NEETU) Negative (Negative) COVID-19 Clin Com See Note 09/11/21 09/11/21 09/11/21 Range/Units 01:57 01:57 01:57 WBC 7.5 (4.8-10.8) X10*3/uL RBC 4.43 L (4.60-5.80) X10*6/uL Hgb 13.2 L (14.0-18.0) g/dl Hct 38.7 L (42.0-52.0) % MCV 87.4 (80.0-98.0) fL MCH 29.8 (27.0-33.0) pg MCHC 34.1 (31.0-36.0) g/dl RDW 14.2 (11.0-16.0) % Plt Count 177 (160-400) X10*3/uL MPV 9.7 (9.4-12.4) fL Immature Gran % (Auto) 0.4 (0.0-0.4) % Neut % (Auto) 72.8 (45-73) % Lymph % (Auto) 12.6 L (20-40) % [place] % (Auto) 14.1 H (2-11) % Eos % (Auto) 0.0 (0-4) % Baso % (Auto) 0.1 (0-2) % Lymph # (Auto) 0.9 L (1.2-4.9) X10*3/uL [place] # (Auto) 1.1 (0.1-1.2) X10*3/uL Eos # (Auto) 0.0 (0.0-0.4) X10*3/uL Baso # (Auto) 0.0 (0.0-0.2) X10*3/uL Abs Immat Gran (auto) 0.03 (0.00-0.03) X10*3/uL Absolute Neuts (auto) 5.4 (2.0-8.3) x10*3/uL Absolute Nucleated RBC 0.000 (0.0-0.012) X10*3/uL Nucleated RBC % (auto) 0.0 (0.0-0.2) /100WBC Sodium 137 (135-145) mmol/L Potassium 5.5 H (3.3-5.1) mmol/L Chloride 99 (96-108) mmol/L Carbon Dioxide 27 (22-29) mmol/L Anion Gap 17 (12-20) BUN 52 H D (9-16) mg/dL Creatinine 1.22 (0.5-1.4) mg/dL Estim Creat Clear Calc 56.6 Estimated GFR > 60 Random Glucose 92 (60-115) mg/dL Calcium 9.6 (8.4-10.2) mg/dL Total Bilirubin 0.8 (0.0-1.0) mg/dL AST 167 H (5-37) U/L ALT 56 H (0-40) U/L Alkaline Phosphatase 132 H (39-117) U/L Total Creatine Kinase 8656 H D (38-174) U/L Total Protein 8.6 H (6.5-8.0) g/dL Albumin 4.3 (3.5-5.0) g/dL Urine Color Urine Appearance Urine pH (5.0-8.0) Ur Specific [place] (1.005-1.025) Urine Protein (NEG-TRACE) MG/DL Urine Glucose (UA) (NEG) MG/DL Urine Ketones (NEG) MG/DL Urine Blood (NEG) Urine Nitrite (NEG) Ur Leukocyte Esterase (NEG) Urine RBC (0) /HPF Urine WBC (0-4) /HPF Ur Squamous Epith Cells /LPF Urine Bacteria /LPF Salicylates < 5.0 L (15-30) mg/dL Urine Opiates Screen (Not Detect) Urine Fentanyl Screen (Not Detect) Acetaminophen < 1 (<30) mcg/mL Ur Barbiturates Screen (Not Detect) Ur Phencyclidine Scrn (Not Detect) Ur Amphetamines Screen (Not Detect) U Benzodiazepines Scrn (Not Detect) Urine Cocaine Screen (Not Detect) U Marijuana (THC) Screen (Not Detect) Ethyl Alcohol < 10 mg/dL COVID-19 (NEETU) (Negative) COVID-19 Clin Com <Jean Pierre Farrell MD - Last Filed: 09/11/21 04:16> Critical Care Time Critical Care Time Critical Care Time: No <LOVELY Esquivel - Last Filed: 09/11/21 02:39> Discharge Plan Discharge Clinical Impression: Polysubstance abuse, Acute hyperkalemia <LOVELY Esquivel - Last Filed: 09/11/21 02:39> Patient Disposition: Still a Patient <LOVELY Esquivel - Last Filed: 09/11/21 02:39> Prescriptions: No Action multivitamin [One Daily Multivitamin] Tablet 1 tab PO DAILY atorvastatin 20 mg tablet 1 tab PO DAILY aspirin 81 mg tablet,delayed release (DR/EC) 1 tab PO DAILY levothyroxine 50 mcg tablet 1 tab PO QAM nicotine 21 mg/24 hr patch 24 hour 21 mg topical DAILY folic acid 1 mg tablet 1 tab PO DAILY buprenorphine-naloxone [Suboxone] 8-2 mg film 1 strip sublingual BID <LOVELY Esquivel - Last Filed: 09/11/21 02:39>
[2021-09-10 20:22] LABS: COVID-19 Test Negative (Negative)
[2021-09-10] MEDS: LORazepam 1 MG TABLET PO (20:30)
[2021-09-11 01:23] LABS: Appearance Urine CLEAR; Glucose Urine UA NEG (NEG); Leukocyte Esterase Urine NEG (NEG); Nitrite Urine NEG (NEG); PH 5.5 (5.0-8.0); Specific Gravity - Urine >= 1.030 (1.005-1.025); Urine Blood 3+ (NEG); Urine Ketones NEG (NEG); Urine Protein TRACE MG/DL (NEG-TRACE)
[2021-09-11 01:28] LABS: Color Urine YELLOW
[2021-09-11 01:33] LABS: Squamous Epithelial Cell Urine TRACE /LPF; WBC Urine 0-2 /HPF (0-4)
[2021-09-11 01:53] LABS: Amphetamine Screen Urine Not Detected (Not Detect); Barbiturates, Urine Not Detected (Not Detect); Benzodiazepines Screen Urine Not Detected (Not Detect); Cannabinoid Screen Urine Not Detected (Not Detect); Cocaine Screen Urine POSITIVE (Not Detect); Fentanyl, urine POSITIVE (Not Detect); Opiate Screen Urine POSITIVE (Not Detect); Phencyclidine Screen Urine Not Detected (Not Detect)
[2021-09-11 02:03] LABS: Basophils Percent Auto 0.1 % (0-2); Hematocrit 38.7 % (42.0-52.0); Hemoglobin 13.2 g/dl (14.0-18.0); Imm Gran Abs Auto 0.03 X10*3/uL (0.00-0.03); Imm Gran Pct Auto 0.4 % (0.0-0.4); Lymphocytes Absolute Auto 0.9 X10*3/uL (1.2-4.9); Lymphocytes Percent Auto 12.6 % (20-40); MANUAL DIFF FLAG NO; Mean Corpuscular HGB Conc 34.1 g/dl (31.0-36.0); Mean Corpuscular Hemoglobin 29.8 pg (27.0-33.0); Mean Corpuscular Volume 87.4 fL (80.0-98.0); Mean Platelet Volume 9.7 fL (9.4-12.4); Monocytes Absolute Auto 1.1 X10*3/uL (0.1-1.2); Monocytes Percent Auto 14.1 % (2-11); Neutrophils Absolute Auto 5.4 x10*3/uL (2.0-8.3); Neutrophils Percent Auto 72.8 % (45-73); Platelet Count 177 X10*3/uL (160-400); Red Blood Count 4.43 X10*6/uL (4.60-5.80); Red Cell Distribution Width 14.2 % (11.0-16.0); White Blood Count 7.5 X10*3/uL (4.8-10.8)
[2021-09-11 02:19] LABS: Acetaminophen LAB < 1 mcg/mL (<30); Ethanol < 10 mg/dL; Salicylate < 5.0 mg/dL (15-30)
[2021-09-11 02:23] LABS: Alanine Aminotransferase 56 U/L (0-40); Albumin Level 4.3 g/dL (3.5-5.0); Alkaline Phosphatase 132 U/L (39-117); Anion Gap 17 (12-20); Aspartate Amino Transferase 167 U/L (5-37); Bilirubin Total 0.8 mg/dL (0.0-1.0); Blood Urea Nitrogen 52 mg/dL (9-16); Calcium 9.6 mg/dL (8.4-10.2); Carbon Dioxide 27 mmol/L (22-29); Chloride 99 mmol/L (96-108); Creatinine Clr Calc Pharmacy 56.6; Estimated Glomerular Filt Rate > 60; Glucose Random 92 mg/dL (60-115); Potassium 5.5 mmol/L (3.3-5.1); Sodium 137 mmol/L (135-145); Total Protein 8.6 g/dL (6.5-8.0)
[2021-09-11] MEDS: Sodium Zirconium Cyclosilicate 10 GM POWD.PACK PO (03:24)
--- NOTE | 2021-09-11 03:32 | PC.NURSE ---
Patient in bed restless from polysubstance use, Ativan 1 mg po administered , K level was 5.5/provider ordered Lokelma 10 gm/administered as ordered at 0324, patient will be evaluated by recovery team for detox bed search, med rec completed/APR activated, will continue to monitor
[2021-09-11] MEDS: 0.9 % Sodium Chloride 1,000 ML 999 ML IV ×2 (05:05)
--- NOTE | 2021-09-11 06:25 | PM.IMHP ---
History of Present Illness Date of Service: 09/11/21 Chief Complaint: found intoxicated This is a 61-year-old male with a past medical history of polysubstance abuse, schizoaffective disorder, MDD, HIV, opioid use disorder who presents to the hospital after being found in the street hallucinating and unclear intoxication. Patient is a frequent admission to [facility] for the above history and today he was placed for BHU admission but after admitting to using cocaine, ED physician obtain lab which found him to be in rhabdomyolysis as well as MATTHEW and other abnormal labs. Patient currently in the BHU part in the ED, on my exam he is awake, alert, but rocking back and forth, I am unable to get much history from him as he is hardly comprehensible but reports that he came to the hospital because he fell, he reports that he lost consciousness for 5 minutes, he reports tripping and falling, he denies any chest pain, reports diffuse abdominal pain no nausea or vomiting, no diarrhea constipation, no urinary symptoms. On arrival to the ED patient hemodynamically stable found to have a temp of 97.8 degrees otherwise unremarkable vitals Labs are significant for WBC count of 7.5, hemoglobin of 13.2, hematocrit 30.7, sodium of 137, potassium 5.5, BUN of 52, creatinine of 1.22, AST of 107, ALT of 56, alk-phos of 132, CPK of a 8656, UA positive for blood and urine RBC, positive for opioids, fentanyl, and cocaine Patient started on IV fluids and will be admitted for further management Review of Systems Review of Systems: Yes all other systems are reviewed and are negative [facility] Medical History AIDS Asthma Cocaine use disorder, severe, dependence Depression Hepatitis C HIV (human immunodeficiency virus infection) MDD (major depressive disorder), recurrent episode, severe Opioid dependence Opioid use disorder, severe, in early remission, on maintenance therapy, dependence Schizoaffective disorder Schizoaffective disorder Tardive dyskinesia Social History Household Members: Other Household Members Other:: Patient resides in [facility] Housing: Assisted Living Facility Housing Other:: [facility] Do you presently have visiting nurse or other home services: Yes Unable to assess alcohol history related to: Unknown Alcohol intake: unknown Patient Tobacco Use Status: Refuse Tobacco use screen Tobacco use type: Cigarette Cigarette Packs Per Day: 1 Cigarettes Per Day: 20.0 Years Smoked: 40 e-Cigarette/Vaping Use: Former Use Second Hand Smoke Exposure: No Substance Use Type: Crack/Cocaine and Heroin Advance Directives: Yes Advance Directives on File: Yes Advance Directives Date on File: 01/29/20 service: No Sexual orientation: Straight/Heterosexual Meds Allergies Allergy/AdvReac Type Severity Reaction Status Date / Time Onions Allergy Swelling Uncoded 08/20/21 12:02 Active Medications: Current Medications Aspirin (Aspirin Enteric Coated 81 Mg Tablet.) 81 mg PO DAILY REPLACED BY [facility] Atorvastatin Calcium (Atorvastatin Calcium 20 Mg Tablet) 20 mg PO DAILY REPLACED BY [facility] Buprenorphine/Naloxone (Buprenorphine/Naloxone 8/2 Mg Film) 1 film SUBLINGUAL BID REPLACED BY [facility] Folic Acid (Folic Acid 1 Mg Tablet) 1 mg PO DAILY REPLACED BY [facility] Levothyroxine Sodium (Levothyroxine Sodium 50 Mcg Tablet) 50 mcg PO DAILY@0630 REPLACED BY [facility] Multivitamins/Vitamin C (Multivitamin Tablet) 1 tab PO DAILY REPLACED BY [facility] Nicotine (Nicotine 21 Mg Patch.Td24) 21 mg TRANSDERMA DAILY REPLACED BY [facility] Home Medications Medication Instructions Recorded Confirmed Last Taken Type aspirin 81 mg tablet,delayed 1 tab PO DAILY 08/13/21 09/10/21 Unknown History release atorvastatin 20 mg tablet 1 tab PO DAILY 08/13/21 09/10/21 Unknown History folic acid 1 mg tablet 1 tab PO DAILY 08/13/21 09/10/21 Unknown History levothyroxine 50 mcg tablet 1 tab PO QAM 08/13/21 09/10/21 Unknown History multivitamin (One Daily 1 tab PO DAILY 08/13/21 09/10/21 Unknown History Multivitamin tablet) nicotine 21 mg/24 hr daily 21 mg topical DAILY 08/13/21 09/10/21 Unknown History transdermal patch buprenorphine 8 mg-naloxone 2 mg 1 strip sublingual BID 09/10/21 09/10/21 Unknown History sublingual film (Suboxone) Physical Exam Vital Signs and Narrative: Vital Signs: Last Vital Signs Temp 97.8 F 09/10/21 19:48 Pulse 87 09/10/21 19:48 Resp 18 09/10/21 19:48 BP 130/64 09/10/21 19:48 Pulse Ox 98 07/28/22 19:48 O2 Del Method 09/10/21 19:48 BMI result Body Mass Index 25.0 Const: Other: Patient awake, alert, oriented to self and place. Patient rocking back and forth General: cooperative and no acute distress Eyes: General: appearance normal, both eyes and all related structures Resp: Effort & Inspection: normal respiratory effort Auscultation: clear to auscultation bilaterally Cardio: Rate: regular rate Rhythm: regular rhythm GI: Palpation (GI): Soft to palpation Auscultation: normal bowel sounds Skin: General skin exam: no rashes or lesions noted Extrem: General: Yes normal to inspection and Yes no pedal edema Results Labs CBC and Chem 7: 09/11/21 01:57 09/11/21 01:57 Labs: Laboratory Results - last 24 hr 09/10/21 09/11/21 09/11/21 20:02 01:16 01:16 MCV MCH MCHC RDW Plt Count MPV Immature Gran % (Auto) Neut % (Auto) Lymph % (Auto) Haakon % (Auto) Eos % (Auto) Baso % (Auto) Lymph # (Auto) Haakon # (Auto) Eos # (Auto) Baso # (Auto) Abs Immat Gran (auto) Absolute Neuts (auto) Absolute Nucleated RBC Nucleated RBC % (auto) Anion Gap Estim Creat Clear Calc Estimated GFR Random Glucose Calcium Total Bilirubin AST ALT Alkaline Phosphatase Total Creatine Kinase Total Protein Albumin Urine Color YELLOW Urine Appearance CLEAR Urine pH 5.5 Ur Specific [place] >= 1.030 H Urine Protein TRACE Urine Glucose (UA) NEG Urine Ketones NEG Urine Blood 3+ H Urine Nitrite NEG Ur Leukocyte Esterase NEG Urine RBC 1-4 Urine WBC 0-2 Ur Squamous Epith Cells TRACE Urine Bacteria NONE Salicylates Urine Opiates Screen POSITIVE H Urine Fentanyl Screen POSITIVE H Acetaminophen Ur Barbiturates Screen Not Detected Ur Phencyclidine Scrn Not Detected Ur Amphetamines Screen Not Detected U Benzodiazepines Scrn Not Detected Urine Cocaine Screen POSITIVE H U Marijuana (THC) Screen Not Detected Ethyl Alcohol COVID-19 (NEETU) Negative COVID-19 Clin Com See Note 09/11/21 09/11/21 09/11/21 01:57 01:57 01:57 MCV 87.4 MCH 29.8 MCHC 34.1 RDW 14.2 Plt Count 177 MPV 9.7 Immature Gran % (Auto) 0.4 Neut % (Auto) 72.8 Lymph % (Auto) 12.6 L Haakon % (Auto) 14.1 H Eos % (Auto) 0.0 Baso % (Auto) 0.1 Lymph # (Auto) 0.9 L Haakon # (Auto) 1.1 Eos # (Auto) 0.0 Baso # (Auto) 0.0 Abs Immat Gran (auto) 0.03 Absolute Neuts (auto) 5.4 Absolute Nucleated RBC 0.000 Nucleated RBC % (auto) 0.0 Anion Gap 17 Estim Creat Clear Calc 56.6 Estimated GFR > 60 Random Glucose 92 Calcium 9.6 Total Bilirubin 0.8 AST 167 H ALT 56 H Alkaline Phosphatase 132 H Total Creatine Kinase 8656 H D Total Protein 8.6 H Albumin 4.3 Urine Color Urine Appearance Urine pH Ur Specific [place] Urine Protein Urine Glucose (UA) Urine Ketones Urine Blood Urine Nitrite Ur Leukocyte Esterase Urine RBC Urine WBC Ur Squamous Epith Cells Urine Bacteria Salicylates < 5.0 L Urine Opiates Screen Urine Fentanyl Screen Acetaminophen < 1 Ur Barbiturates Screen Ur Phencyclidine Scrn Ur Amphetamines Screen U Benzodiazepines Scrn Urine Cocaine Screen U Marijuana (THC) Screen Ethyl Alcohol < 10 COVID-19 (NEETU) COVID-19 Clin Com Assessment and Plan (1) Rhabdomyolysis: Status: Acute (2) MATTHEW (acute kidney injury): Status: Acute (3) Acute hyperkalemia: Status: Acute (4) Polysubstance abuse: Status: Acute (5) Suicidal ideation: Status: Acute Plan 61-year-old with past medical history of polysubstance abuse including opioids and cocaine presents to the hospital after being found on the street hallucinating # rhabdomyolysis - likely secondary to fall, as well as IV drug use - will treat with IV fluids - follow CPK # MATTHEW - likely secondary to above - IV fluid - follow BMP # hyperkalemia - secondary to MATTHEW - IV fluids - follow BMP # polysubstance abuse - continue Suboxone # suicidal ideation - reported to be suicidal to [facility] staff - has sitter at bedside # hypothyroidism - continue levothyroxine DVT prophylaxis: Lovenox Given the significant rhabdomyolysis as well as MATTHEW and risk for developing kidney failure patient will be admitted to the medical floor for minimum 2 night hospital stay for for their IV fluid and close monitoring, this cannot be done at [facility] as patient is also suicidal and this cannot be done on [facility] Quality Stroke Does the patient have a stroke diagnosis?: No VTE Prior VTE?: No VTE Risk Level:: Medical - moderate - high VTE Device Contraindication: Treatment Not Indicated VTE Drug Contraindication: N/A - Med Ordered
--- NOTE | 2021-09-11 06:49 | PC.NURSE ---
Patient is currently in bed appears sleeping, NS 1000 ml x 2 administration initiated by ED RN completed at 0615, provider notified/ordered to keep the IV access as patient is admitted to medically, charge nurse made aware of providers plan/advised to keep patient in the POD on 1:1 until day shift come up with new plan for the patient, med rec completed/approved by the provider, ROMEO, will continue to monitor.
[2021-09-11] MEDS: Lactated Ringers 1,000 ML 100 ML IVCONT (08:00)
[2021-09-11] MEDS: Levothyroxine Sodium 50 MCG TABLET PO (08:01)
[2021-09-11] MEDS: Enoxaparin Sodium 40 MG/0.4 ML SYRINGE SUBCUT (08:01)
[2021-09-11] MEDS: Atorvastatin Calcium 20 MG TABLET PO (08:01)
[2021-09-11] MEDS: Nicotine 21 MG PATCH.TD24 TRANSDERMA (08:04)
[2021-09-11 08:05] VITALS: BP 115/69; PULSE 74; RESP 16; TEMP 36.6; O2SAT 97
[2021-09-11] MEDS: Multivitamin TABLET 1 TAB PO (08:05)
[2021-09-11] MEDS: Folic Acid 1 MG TABLET PO (08:05)
[2021-09-11] MEDS: Aspirin Enteric Coated 81 MG TABLET.DR PO (08:05)
[2021-09-11] MEDS: Buprenorphine/Naloxone 8/2 mg FILM 1 FILM SUBLINGUAL ×2 (08:06→20:45)
[2021-09-11] MEDS: 0.9 % Sodium Chloride Flush 3 ML SYRINGE IVFLUSH (08:06)
--- NOTE | 2021-09-11 08:18 | PC.NURSE ---
a/o x 2, pt states that the yr was . pt amb (i) gait unsteady 2ndary to pt being tremulous (apparent baseline), pt speaks in full sentences, pt states +si at this time. lactade ringer infusing as per order. pt is admitted. pt aware of plan of care.
[2021-09-11 08:56] LABS: Alanine Aminotransferase 58 U/L (0-40); Alkaline Phosphatase 106 U/L (39-117); Anion Gap 13 (12-20); Aspartate Amino Transferase 252 U/L (5-37); Bilirubin Total 0.4 mg/dL (0.0-1.0); Blood Urea Nitrogen 43 mg/dL (9-16); Carbon Dioxide 24 mmol/L (22-29); Chloride 102 mmol/L (96-108); Creatinine Clr Calc Pharmacy 85.3; Estimated Glomerular Filt Rate > 60; Glucose Random 102 mg/dL (60-115); Potassium 4.7 mmol/L (3.3-5.1); Sodium 134 mmol/L (135-145); Total Protein 6.9 g/dL (6.5-8.0)
[2021-09-11 09:21] LABS: Albumin Level 3.3 g/dL (3.5-5.0)
--- NOTE | 2021-09-11 10:08 | PHA.MEDREC ---
Pharmacy Consult ? Medication Reconciliation Pharmacy has reviewed the medication reconciliation completed by Shahid. Patient confirmed they are on levothyroxine. Dot Booth, BessyD
--- NOTE | 2021-09-11 12:00 | PC.NURSE ---
PT MOVED TO ER BED 6H, PT AWARE OF PLAN OF CARE.
[2021-09-11 20:51] VITALS: BP 120/74; PULSE 79; RESP 18; O2SAT 95
[2021-09-12] VITALS (8 sets, daily range): BP systolic 117–172; BP diastolic 72–106; PULSE 60–85; RESP 14–18; TEMP 36.2–37; O2SAT 95–96
--- NOTE | 2021-09-12 00:12 | PC.NURSE ---
pt noted to be incontinent of a large amount of urine, pericare provided by this nurse and nurse sanders. patient repositioned, POC done. Will continue to monitor pt at this time.
[2021-09-12] MEDS: Lactated Ringers 1,000 ML 100 ML IVCONT ×3 (01:37→20:42)
[2021-09-12] MEDS: Enoxaparin Sodium 40 MG/0.4 ML SYRINGE SUBCUT (06:24)
[2021-09-12] MEDS: Levothyroxine Sodium 50 MCG TABLET PO (06:24)
[2021-09-12 06:50] LABS: MANUAL DIFF FLAG NO
[2021-09-12 06:55] LABS: Basophils Percent Auto 0.4 % (0-2); Eosinophils Percent Auto 0.2 % (0-4); Hematocrit 35.8 % (42.0-52.0); Hemoglobin 12.3 g/dl (14.0-18.0); Imm Gran Abs Auto 0.02 X10*3/uL (0.00-0.03); Imm Gran Pct Auto 0.4 % (0.0-0.4); Lymphocytes Percent Auto 21.5 % (20-40); Mean Corpuscular HGB Conc 34.4 g/dl (31.0-36.0); Mean Corpuscular Hemoglobin 30.5 pg (27.0-33.0); Mean Corpuscular Volume 88.8 fL (80.0-98.0); Mean Platelet Volume 9.7 fL (9.4-12.4); Monocytes Absolute Auto 0.8 X10*3/uL (0.1-1.2); Monocytes Percent Auto 17.8 % (2-11); Neutrophils Absolute Auto 2.7 x10*3/uL (2.0-8.3); Neutrophils Percent Auto 59.7 % (45-73); Platelet Count 161 X10*3/uL (160-400); Red Blood Count 4.03 X10*6/uL (4.60-5.80); Red Cell Distribution Width 14.5 % (11.0-16.0); White Blood Count 4.6 X10*3/uL (4.8-10.8)
[2021-09-12 07:23] LABS: Anion Gap 10 (12-20); Blood Urea Nitrogen 19 mg/dL (9-16); Calcium 8.4 mg/dL (8.4-10.2); Carbon Dioxide 30 mmol/L (22-29); Chloride 106 mmol/L (96-108); Creatinine Clr Calc Pharmacy 104.7; Estimated Glomerular Filt Rate > 60; Glucose Random 86 mg/dL (60-115); Potassium 4.4 mmol/L (3.3-5.1); Sodium 142 mmol/L (135-145)
[2021-09-12] MEDS: Aspirin Enteric Coated 81 MG TABLET.DR PO (10:10)
[2021-09-12] MEDS: Folic Acid 1 MG TABLET PO (10:10)
[2021-09-12] MEDS: Buprenorphine/Naloxone 8/2 mg FILM 1 FILM SUBLINGUAL ×2 (10:11→19:45)
[2021-09-12] MEDS: Atorvastatin Calcium 20 MG TABLET PO (10:11)
[2021-09-12] MEDS: Nicotine 21 MG PATCH.TD24 TRANSDERMA (10:11)
[2021-09-12] MEDS: Multivitamin TABLET 1 TAB PO (10:11)
--- NOTE | 2021-09-12 11:18 | MHC.CM.PN ---
EMR REVIEWED, CM MET W/PT WHO REPORTS HE RENTS A ROOM IN A HOUSE W/12 OTHER PEOPLE, PT REPORTS HE IS INDEPENDENT W/CARE, USES A CAN AND HAS NO SERVICES HOWEVER WOULD LIKE TO SPEAK WITH TIMBER HARVESTER OPERATOR TO DISCUSS OUPT THERAPY AND RPEORTS HE HAS BEEN TRYING TO GET INTO GROUPS AT [facility] BUT HAS NOT BEEN ABLE TO, PT VERIFIES COVID VACCINE X3 AND IS UNSURE OF WHICH VACCINE, PCP IS A FEMALE PROVIDER AT [facility] HOWEVER DOES NOT RECALL HER NAME AND HCP IS SISTER DOMINICK OBREGON [phone] AND COPY ON FILE FROM PREVIOUS ADMISSION. PT HAD REQUESTED D/C FOR 12:30PM HOWEVER D/C CANCELLED D/T LABS, PT WILL NEED ASSISTANCE W/TRANSPORT.
--- NOTE | 2021-09-12 11:42 | MHC.CARE ---
CARE Team met with Pt who is not endorse SI/HI/VH/AH. Pt is well known to [facility]. Pt is advocating to be discharged home to [facility]. Pt receives suboxone at [facility]. CARE Team provided information to Dr. Barrera
--- NOTE | 2021-09-12 12:27 | MHC.RECOVRN ---
This copywriter met w/ pt, pt alert and oriented. Pt states had a heroin reoccurrence recently. Pt states goes to [facility] Sub[facility]. Pt states is interested in supports, this copywriter and pt discussed [facility] [place], [employer]. Pt states interested in [employer]. Pt states attended recovery meetings in the past, in [place]. This copywriter to provide resources discussed above and will ask RC to meet w/ pt tonite.
--- NOTE | 2021-09-12 13:37 | HO.PM.IMPN ---
Subjective Subjective Date of Service: 09/12/21 Interval History: the patient was seen and evaluated this morning Laying in bed, feels comfortable Denies any suicidal thoughts No reported other overnight events. Systemic review: No fever, chills or weakness No chest pain, palpitation No shortness of breath or coughing No abdominal pain, nausea or vomiting No urinary symptoms No any rash or wounds Muscle aches Physical Exam Vital Signs: Vital Signs: Last Vital Signs Temp 97.1 F 09/12/21 11:44 Pulse 70 09/12/21 11:44 Resp 14 09/12/21 11:44 BP 153/91 H 09/12/21 11:44 Pulse Ox 96 09/12/21 11:44 O2 Del Method 09/12/21 11:44 BMI result Body Mass Index 25.0 Const: Other: Constitutional : Alert, oriented, not in distress Neck : Normal inspection, Supple Cardiovascular : RRR, no JVP, no lower extremity edema Respiratory : fair bilateral air entry, no crackles, wheezes or rhonchi Gastrointestinal: soft, lax, Normal bowel sounds, Non tender Skin : Warm, Dry Neurological : Alert & oriented x3, No focal deficit , dyskinetic movement, CN 2-12 within normal Objective Data Active Medications Acetaminophen (Acetaminophen 325 Mg Tablet) 650 mg PO Q6H PRN PRN Reason: Pain, Mild (Pain Scale 1-3) Aspirin (Aspirin Enteric Coated 81 Mg Tablet.) 81 mg PO DAILY [facility] Last Admin: 09/12/21 10:10 Dose: 81 mg Documented By: ROSEANNE Atorvastatin Calcium (Atorvastatin Calcium 20 Mg Tablet) 20 mg PO DAILY [facility] Last Admin: 09/12/21 10:11 Dose: 20 mg Documented By: ROSEANNE Buprenorphine/Naloxone (Buprenorphine/Naloxone 8/2 Mg Film) 1 film SUBLINGUAL BID [facility] Last Admin: 09/12/21 10:11 Dose: 1 film Documented By: ROSEANNE Docusate Sodium (Docusate Sodium 100 Mg Capsule) 100 mg PO DAILY PRN PRN Reason: Constipation Enoxaparin Sodium (Enoxaparin Sodium 40 Mg/0.4 Ml Syringe) 40 mg SUBCUT Q24H [facility] Last Admin: 09/12/21 06:24 Dose: 40 mg Documented By: ROMAINE Folic Acid (Folic Acid 1 Mg Tablet) 1 mg PO DAILY [facility] Last Admin: 09/12/21 10:10 Dose: 1 mg Documented By: ROSEANNE Lactated Ringer's (Lr) 1,000 mls @ 100 mls/hr IVCONT .Q10H [facility] Last Admin: 09/12/21 11:05 Dose: 100 mls/hr Documented By: ROSEANNE Levothyroxine Sodium (Levothyroxine Sodium 50 Mcg Tablet) 50 mcg PO DAILY@0630 [facility] Last Admin: 09/12/21 06:24 Dose: 50 mcg Documented By: ROMAINE Multivitamins/Vitamin C (Multivitamin Tablet) 1 tab PO DAILY [facility] Last Admin: 09/12/21 10:11 Dose: 1 tab Documented By: ROSEANNE Nicotine (Nicotine 21 Mg Patch.Td24) 21 mg TRANSDERMA DAILY [facility] Last Admin: 09/12/21 10:11 Dose: 21 mg Documented By: ROSEANNE Ondansetron HCl (Ondansetron Hcl 4 Mg/2 Ml Vial) 4 mg IVPUSH Q8H PRN PRN Reason: Nausea and Vomiting Sodium Chloride (0.9 % Sodium Chloride Flush 3 Ml Syringe) 3 ml IVFLUSH QSHIFT [facility] Last Admin: 09/12/21 10:12 Dose: Not Given Documented By: ROSEANNE Non-Admin Reason: IV Running Labs CBC & Chem 7: 09/12/21 06:41 09/12/21 06:41 Labs: Laboratory Results - last 24 hr 09/12/21 09/12/21 06:41 06:41 MCV 88.8 MCH 30.5 MCHC 34.4 RDW 14.5 Plt Count 161 MPV 9.7 Immature Gran % (Auto) 0.4 Neut % (Auto) 59.7 Lymph % (Auto) 21.5 Cross % (Auto) 17.8 H Eos % (Auto) 0.2 Baso % (Auto) 0.4 Lymph # (Auto) 1.0 L Cross # (Auto) 0.8 Eos # (Auto) 0.0 Baso # (Auto) 0.0 Abs Immat Gran (auto) 0.02 Absolute Neuts (auto) 2.7 Absolute Nucleated RBC 0.000 Nucleated RBC % (auto) 0.0 Anion Gap 10 L Estim Creat Clear Calc 104.7 Estimated GFR > 60 Random Glucose 86 Calcium 8.4 Total Creatine Kinase 6161 H Assessment and Plan (1) Suicidal ideation: Status: Acute (2) MATTHEW (acute kidney injury): Status: Acute (3) Rhabdomyolysis: Status: Acute Plan 61-year-old with past medical history of polysubstance abuse including opioids and cocaine presents to the hospital after being found on the street hallucinating # rhabdomyolysis secondary to fall, IV drug use Continue IV fluids Trend CPK # MATTHEW Improving On IV fluid follow BMP # hyperkalemia Resolved follow BMP # polysubstance abuse continue Suboxone # suicidal ideation Evaluated by the care team, not suicidal and can be discharged home Discontinue sitter # hypothyroidism continue levothyroxine DVT prophylaxis Lovenox The patient will need overnight hospital stay for treatment of rhabdomyolysis as well as MATTHEW to prevent possible developing kidney failure Quality Stroke Does the patient have a stroke diagnosis?: No VTE Prior VTE?: No VTE Risk Level:: Medical - moderate - high VTE Device Contraindication: Treatment Not Indicated VTE Drug Contraindication: N/A - Med Ordered
[2021-09-13 02:05] VITALS: BP 138/83; PULSE 69; RESP 16; TEMP 36.3; O2SAT 97
[2021-09-13] MEDS: Levothyroxine Sodium 50 MCG TABLET PO (05:20)
[2021-09-13] MEDS: Enoxaparin Sodium 40 MG/0.4 ML SYRINGE SUBCUT (06:13)
[2021-09-13 07:24] LABS: Anion Gap 10 (12-20); Blood Urea Nitrogen 13 mg/dL (9-16); Calcium 8.4 mg/dL (8.4-10.2); Carbon Dioxide 30 mmol/L (22-29); Chloride 102 mmol/L (96-108); Creatinine Clr Calc Pharmacy 104.7; Estimated Glomerular Filt Rate > 60; Glucose Random 86 mg/dL (60-115); Potassium 4.1 mmol/L (3.3-5.1); Sodium 138 mmol/L (135-145)
[2021-09-13 07:37] VITALS: BP 156/92; PULSE 72; RESP 17; TEMP 36.4; O2SAT 96
[2021-09-13] MEDS: Aspirin Enteric Coated 81 MG TABLET.DR PO (07:42)
[2021-09-13] MEDS: Atorvastatin Calcium 20 MG TABLET PO (07:42)
[2021-09-13] MEDS: Multivitamin TABLET 1 TAB PO (07:43)
[2021-09-13] MEDS: Folic Acid 1 MG TABLET PO (07:43)
[2021-09-13] MEDS: Nicotine 21 MG PATCH.TD24 TRANSDERMA (07:43)
[2021-09-13] MEDS: Buprenorphine/Naloxone 8/2 mg FILM 1 FILM SUBLINGUAL (07:43)
[2021-09-13] MEDS: 0.9 % Sodium Chloride Flush 3 ML SYRINGE IVFLUSH (09:59)
--- NOTE | 2021-09-13 10:35 | P.DS_ITS ---
DS: Providers Provider Date of Service: 09/13/21 Date of admission: 09/11/21 06:17 Primary care physician: Unknown Physician Consults: 09/12/21 08:31 Consult to Care Team Routine Comment: Reason for consultation: Medically clear to discharge, SI DS: Diagnosis Discharge Diagnosis (1) Suicidal ideation: Status: Acute (2) MATTHEW (acute kidney injury): Status: Acute (3) Rhabdomyolysis: Status: Acute (4) Polysubstance abuse: Status: Acute (5) Acute hyperkalemia: Status: Acute DS: Summary Hospital Course Hospital Course: Admission note HPI This is a 61-year-old male with a past medical history of polysubstance abuse, schizoaffective disorder, MDD, HIV, opioid use disorder who presents to the hospital after being found in the street hallucinating and unclear intoxication.? Patient is a frequent admission to [facility] for the above history and today he was placed for BHU admission but after admitting to using cocaine, ED physician obtain lab which found him to be in rhabdomyolysis as well as MATTHEW and other abnormal labs.? Patient currently in the BHU part in the ED, on my exam he is awake, alert, but rocking back and forth, I am unable to get much history from him as he is hardly comprehensible but reports that he came to the hospital because he fell, he reports that he lost consciousness for 5 minutes, he reports tripping and falling, he denies any chest pain, reports diffuse abdominal pain no nausea or vomiting, no diarrhea constipation, no urinary symptoms.? On arrival to the ED patient hemodynamically stable found to have a temp of 97.8 degrees otherwise unremarkable vitals Labs are significant for WBC count of 7.5, hemoglobin of 13.2, hematocrit 30.7, sodium of 137, potassium 5.5, BUN of 52, creatinine of 1.22, AST of 107, ALT of 56, alk-phos of 132, CPK of a 8656, UA positive for blood and urine RBC, posit taz for opioids, fentanyl, and cocaine Patient started on IV fluids and will be admitted for further management Hospital course The patient was admitted to the hospital for evaluation of altered mentation. Found to have acute kidney injury, hyperkalemia as a result of rhabdomyolysis secondary to polysubstance abuse as his urine tox screen was positive for opioids, fentanyl and cocaine. He reported suicidal ideation at time of presentation. Had a sitter at the bedside as he was treated with IV fluids with good response over the course of hospital stay as his kidney function improved back to normal baseline and his hyperkalemia resolved. Evaluated by care team who recommended no further action as the patient was not suicidal anymore. I discussed with him suicidal thoughts and he denied having any plans. Advised to avoid using any drugs. Advised to drink plenty of water. Time Spent with Patient Time attestation: Total time spent providing and/or coordinating discharge services: Discharge coordination time: Greater than 30 minutes Quality: Safe Use of Opioids Does Pt have an Active Cancer Diagnosis on the Problem List?: No Quality: Stroke Does the patient have a stroke diagnosis?: No Physical Exam Vital Signs: Vital Signs: Last Vital Signs Temp 97.6 F 09/13/21 07:37 Pulse 72 09/13/21 07:37 Resp 17 09/13/21 07:37 BP 156/92 H 09/13/21 07:37 Pulse Ox 96 09/13/21 07:37 O2 Del Method 09/13/21 07:37 BMI result Body Mass Index 25.0 Const: Other: Constitutional : Alert, oriented, not in distress Neck : Normal inspection, Supple Cardiovascular : RRR, no JVP, no lower extremity edema Respiratory : fair bilateral air entry, no crackles, wheezes or rhonchi Gastrointestinal: soft, lax, Normal bowel sounds, Non tender Skin : Warm, Dry Neurological : Alert & oriented x3, No focal deficit, CN 2-12 within normal DS: Data Data Completed and Pending Labs on day of discharge: Laboratory Results - last 24 hr 09/13/21 09/13/21 05:56 05:56 Sodium 138 Potassium 4.1 Chloride 102 Carbon Dioxide 30 H Anion Gap 10 L BUN 13 Creatinine 0.66 Estim Creat Clear Calc 104.7 Estimated GFR > 60 Random Glucose 86 Calcium 8.4 Total Creatine Kinase 1800 H D Discharge Plan Discharge Patient Disposition: Longterm Discharge Diagnosis: Acute kidney injury, Rhabdomyolysis Suicidal ideation Referrals: Physician,Unknown J [Primary Care Provider] - 1 Week Discharge Medications: Continued multivitamin [One Daily Multivitamin] Tablet 1 tab PO DAILY atorvastatin 20 mg tablet 1 tab PO DAILY aspirin 81 mg tablet,delayed release (DR/EC) 1 tab PO DAILY levothyroxine 50 mcg tablet 1 tab PO QAM nicotine 21 mg/24 hr patch 24 hour 21 mg topical DAILY folic acid 1 mg tablet 1 tab PO DAILY buprenorphine-naloxone [Suboxone] 8-2 mg film 1 strip sublingual BID Discharge Orders: Discharge Order (Routine); Ordered 09/13/21 Ordered By: Lilly Barrera Stand Alone Forms: Patient Portal Discharge page Care Plan Goals: Read below Health Concerns: Read below Plan of Treatment: Read below Assessment: Admitted for evidence of kidney injury as a result of muscle breakdown. Improved back to normal with IV fluids. Evaluated by care team for reported suicidal ideation. Found at no risk at this point to be discharged home. Drink plenty of water and avoid drugs.
--- NOTE | 2021-09-13 11:13 | MHC.CM.PN ---
pt medically cleared for d/c home today no new services, pt met w/recovery nurse yesterday and provided w/community support info, pt reports feeling mentally stable and ready for d/c, yellow cab for transport at 2pm.
[2021-09-13 11:28] VITALS: BP 143/95; PULSE 72; RESP 17; TEMP 36.9; O2SAT 96
== END 2021-09-13 13:51 | disposition home or self-care (01) | DRG 351 ==
LOC: HO.ED 09-11 04:12 → HO.EDOVER 09-11 06:40 → HO.S3 09-12 00:41
PROVIDERS: Internal Medicine; Physician Assistant; Admitting Provider Internal Medicine; Emergency Provider Emergency Medicine Emergency Medical Services; PCP Nurse Practitioner Primary Care; Visit Provider Student in an Organized Health Care Education/Training Program
DX: M62.82 Rhabdomyolysis (principal); B20 Human immunodeficiency virus [HIV] disease; N17.9 Acute kidney failure, unspecified; R45.851 Suicidal ideations; E87.5 Hyperkalemia; E03.9 Hypothyroidism, unspecified; F19.10 Other psychoactive substance abuse, uncomplicated; F11.20 Opioid dependence, uncomplicated; F14.20 Cocaine dependence, uncomplicated; Z20.822 Contact with and (suspected) exposure to COVID-19; Z79.82 Long term (current) use of aspirin; Z79.890 Hormone replacement therapy; Z79.899 Other long term (current) drug therapy
CPT/HCPCS: 36415; 80048; 80053; 80143; 80179; 80307; 81001; 82077; 82550; 85025; 87635; 96360; 99284; 99285; J1650

== ENCOUNTER 2021-09-23 12:36 | Emergency (ER) | payer MEDICAID, SELFPAY ==
--- NOTE | 2021-09-23 12:41 | ED.OVERDOSE ---
HPI - Overdose General Stated Complaint: OVERDOSE Time Seen by Provider: 09/23/21 12:40 Source: patient and EMS Mode of arrival: EMS Limitations: no limitations History of Present Illness HPI Narrative: 61-year-old male who presents emergency department for evaluation of an opiate overdose. The patient was found unresponsive , paramedics gave him intranasal Narcan 8 mg in the patient woke up. On presentation emergency department the patient was belligerent and states that he wants to leave. Security was contacted and the patient did calm down and was placed in a chair. I did talk to the patient. He states that he uses intranasal Narcan frequently and he attends AA and is going to get into an outpatient treatment program. The patient does not want to talk to our control and recovery combat rescue and he does not want to stay in the emergency department for observation. complaint: accidental overdose Onset (ago): hour(s) (1) Intent: other (Patient uses intranasal opiates to get high) Context: Intentional Overdose: drug/ETOH problems Context: Accidental Overdose: wanted to get high Treatments Prior to Arrival: narcan (8 mg intranasal) Related Data Home Medications Medication Instructions Recorded Confirmed aspirin 81 mg tablet,delayed 1 tab PO DAILY 08/13/21 09/10/21 release atorvastatin 20 mg tablet 1 tab PO DAILY 08/13/21 09/10/21 folic acid 1 mg tablet 1 tab PO DAILY 08/13/21 09/10/21 levothyroxine 50 mcg tablet 1 tab PO QAM 08/13/21 09/10/21 multivitamin (One Daily 1 tab PO DAILY 08/13/21 09/10/21 Multivitamin tablet) nicotine 21 mg/24 hr daily 21 mg topical DAILY 08/13/21 09/10/21 transdermal patch buprenorphine 8 mg-naloxone 2 mg 1 strip sublingual BID 09/10/21 09/10/21 sublingual film (Suboxone) Allergies Allergy/AdvReac Type Severity Reaction Status Date / Time Onions Allergy Swelling Uncoded 08/20/21 12:02 Review of Systems Review of Systems: Yes all other systems are reviewed and are negative [facility] Past Medical History [facility] Narrative: Social history: The patient does smoke cigarettes, he denies alcohol use, he does admit to using intranasal opiates today, has a history of polysubstance abuse Medical History AIDS Asthma Cocaine use disorder, severe, dependence Depression Hepatitis C HIV (human immunodeficiency virus infection) MDD (major depressive disorder), recurrent episode, severe Opioid dependence Opioid use disorder, severe, in early remission, on maintenance therapy, dependence Polysubstance abuse Schizoaffective disorder Schizoaffective disorder Tardive dyskinesia Social History Social History Household Members: None Household Members Other:: Patient resides in assisted. Housing: Correction Housing Other:: Detention [facility] Home Do you presently have visiting nurse or other home services: Yes Unable to assess alcohol history related to: Unknown Alcohol intake: unknown Patient Tobacco Use Status: Refuse Tobacco use screen Tobacco use type: Cigarette Cigarette Packs Per Day: 0.5 Cigarettes Per Day: 10.0 Years Smoked: 40 e-Cigarette/Vaping Use: Former Use Second Hand Smoke Exposure: No Substance Use Type: IV Drugs Advance Directives: Yes Advance Directives on File: Yes Advance Directives Date on File: 01/29/20 service: No Current occupational status: unemployed Sexual orientation: Straight/Heterosexual Physical Exam Const: Other: Awake, alert, male patient, he does have rhythmic movements of his face consistent with tardive dyskinesia, he is oriented to person and place any understand why he is here in the emergency department and was able to tell me did the did use intranasal heroin today HEENT: Head: Yes normal to inspection, Yes normocephalic and Yes atraumatic Ears: external ears normal General nose exam: Normal external nose present Face and sinus: Yes normal facial exam Mouth: Normal oral and palatal mucosa present Throat: Yes posterior oropharynx normal Eyes: General: appearance normal, both eyes and all related structures Pupils: Equal, round and reactive pupils present Neck: Neck: Yes normal visual inspection, Yes no lymphadenopathy, Yes trachea midline and Yes supple Chest: Chest palpation & inspection: normal inspection of the chest and normal palpation of entire chest wall Resp: Effort & Inspection: normal respiratory effort and able to speak in complete sentences Auscultation: clear to auscultation bilaterally Cardio: Rate: regular rate Rhythm: regular rhythm Heart sounds: S1 normal heart sound present, S2 normal heart sound present and no murmurs GI: Inspection: Yes normal to inspection Palpation (GI): Soft to palpation, nontender and no guarding Auscultation: normal bowel sounds : General: Yes no CVA tenderness Back/Spine/Pelvis: Back: no CVA tenderness Skin: General skin exam: no rashes or lesions noted Neuro: Cranial nerves: Yes CN's II-XII intact bilaterally and Yes Equal, round and reactive pupils present Cognition (Neuro): normal cognition Motor exam (neuro): 5/5 motor strength present throughout Extrem: General: Yes normal to inspection Psych: Appearance: grossly normal Speech and movement: Other speech and movement exam findings present (Psych) (Tardive dyskinesia) Affect: Anxious affect present and Other affect and mood findings present (Initially agitated) Attitude: cooperative Thought process: Normal thought process present Thought content: Normal thought content present Course Course Course Narrative: 61-year-old male with known history of polysubstance abuse, opiate use disorder who presents emergency department for evaluation of it unintentional opiate overdose, treated with intranasal Narcan by paramedics prior to arriving the emergency department. He initially was very belligerent but we were able to calm him down. He was able to give me a history and I was able to examine him. The patient states that he does not want to stay in the emergency department for observation . I did discuss with him and he is aware that the opiates that he took may be longer lasting then the Narcan that was administered and that if he goes home he could slip in to a narcotic coma and . I did offer the patient a SUDE evaluation and I also off a consult with our control and recovery combat rescue. The patient is competent to understand this discussion and has the right to refuse further treatment and further observation. Therefore, the patient was discharged home with intranasal Narcan and verbal and printed instructions. Discharge Plan Discharge Clinical Impression: Overdose Qualifiers: Encounter type: initial encounter Injury intent: accidental or unintentional Qualified Code(s): T50.901A - Poisoning by unspecified drugs, medicaments and biological substances, accidental (unintentional), initial encounter Patient Disposition: Home, Self-Care Instructions: Adult Overdose (ED) Additional Instructions: Your are being discharged home with intranasal Narcan. If you are going to continue to use heroin, you should make sure that there is a sober person with you that is not using drugs and that this person can administer intranasal Narcan in the event that you stop breathing. Follow-up with your doctor in 2 days. Please return to the emergency department if your symptoms get worse or if you develop any symptoms that are concerning to you. Prescriptions: No Action multivitamin [One Daily Multivitamin] Tablet 1 tab PO DAILY atorvastatin 20 mg tablet 1 tab PO DAILY aspirin 81 mg tablet,delayed release (DR/EC) 1 tab PO DAILY levothyroxine 50 mcg tablet 1 tab PO QAM nicotine 21 mg/24 hr patch 24 hour 21 mg topical DAILY folic acid 1 mg tablet 1 tab PO DAILY buprenorphine-naloxone [Suboxone] 8-2 mg film 1 strip sublingual BID
[2021-09-23 12:45] VITALS: BP 152/101; PULSE 105; O2SAT 96
[2021-09-23] MEDS: Naloxone HCl Nasal TAKE HOME 4 MG SPRAY NOSTRILALT (12:47)
== END 2021-09-23 12:50 | disposition home or self-care (01) ==
LOC: HO.ED 12:48
PROVIDERS: Emergency Provider Emergency Medicine Emergency Medical Services; PCP Nurse Practitioner Primary Care
DX: T40.1X1A Poisoning by heroin, accidental (unintentional), initial encounter (principal); R40.4 Transient alteration of awareness; Y92.9 Unspecified place or not applicable; B20 Human immunodeficiency virus [HIV] disease; F14.20 Cocaine dependence, uncomplicated; F11.20 Opioid dependence, uncomplicated; B19.20 Unspecified viral hepatitis C without hepatic coma
CPT/HCPCS: 99283

== ENCOUNTER 2021-09-30 12:52 | Emergency (ER) | payer MEDICAID, SELFPAY ==
--- NOTE | ~2021-09-30 | CT_ITS ---
EXAMINATION: CT head/brain wo con, CT cervical spine wo con INDICATION INFORMATION: Reason for Exam fall COMPARISON: CT head 08/12/2021 TECHNIQUE: Separate noncontrast CT examinations of the head and cervical spine were performed. Coronal and sagittal images were created for each examination at the technologist workstation. This CT examination was performed using dose optimization techniques as appropriate, variously including the following: *Automated exposure control *Adjustment of mA and/or kV according to patient size (this includes techniques or standardized protocols for targeted exams where dose is matched to indication/reason for exam; i.e. extremities or head) *Use of iterative reconstruction technique DLP: 1135 mGy-cm FINDINGS: Head: No acute osseous or soft tissue abnormality. The mastoid air cells and visualized portions of the paranasal sinuses are well aerated. There is no evidence of acute intracranial hemorrhage or territorial infarction. No abnormal mass effect or midline shift is seen. Sunshine to white matter differentiation is well preserved. No extra-axial fluid collections are identified. No hydrocephalus. Calcifications are noted in the brainstem similar to prior which may reflect sequelae of remote prior insult, nonspecific. There is no abnormal attenuation within the brain parenchyma. Cervical spine: There is no evidence of acute cervical spine fracture. Vertebral bodies remain normal in height. Loss of the usual cervical spine lordosis. Disc space heights are maintained. No pre- or paravertebral soft tissue abnormality is identified. Visualized portions of the lung apices are unremarkable. The thyroid gland is unremarkable. CT/CT cervical spine wo con IMPRESSION: 1. No acute intracranial abnormality. 2. No cervical spine fracture or traumatic malalignment.
[2021-09-30 13:12] VITALS: RESP 18; TEMP 36.8; BMI 18.3
--- NOTE | 2021-09-30 13:14 | ED.PSYCH ---
HPI - Psych General Chief Complaint: ETOH/Substance Use Stated Complaint: HEROINE USE Time Seen by Provider: 09/30/21 13:13 Source: patient Mode of arrival: EMS Limitations: other (poor historian) History of Present Illness HPI Narrative: 61 yo male with HIV, depression, schizoaffective d/o, substance abuse states he was using heroin today and might have fallen. no other history obtainable. MD complaint: substance abuse Onset (ago): year(s) Duration: intermittent History of same: Yes Relieving factors: none Exacerbating factors: drug use Associated psychiatric symptoms: none Associated symptoms: other (possible fall - patient also yelling out like he normally does) Treatments prior to arrival: none Related Data Home Medications Medication Instructions Recorded Confirmed aspirin 81 mg tablet,delayed 1 tab PO DAILY 08/13/21 09/10/21 release atorvastatin 20 mg tablet 1 tab PO DAILY 08/13/21 09/10/21 folic acid 1 mg tablet 1 tab PO DAILY 08/13/21 09/10/21 levothyroxine 50 mcg tablet 1 tab PO QAM 08/13/21 09/10/21 multivitamin (One Daily 1 tab PO DAILY 08/13/21 09/10/21 Multivitamin tablet) nicotine 21 mg/24 hr daily 21 mg topical DAILY 08/13/21 09/10/21 transdermal patch buprenorphine 8 mg-naloxone 2 mg 1 strip sublingual BID 09/10/21 09/10/21 sublingual film (Suboxone) Allergies Allergy/AdvReac Type Severity Reaction Status Date / Time Onions Allergy Swelling Uncoded 08/20/21 12:02 Review of Systems Review of Systems: ROS unable to be obtained due to substance abuse and intoxication [facility] Past Medical History Medical History AIDS Asthma Cocaine use disorder, severe, dependence Depression Hepatitis C HIV (human immunodeficiency virus infection) MDD (major depressive disorder), recurrent episode, severe Opioid dependence Opioid use disorder, severe, in early remission, on maintenance therapy, dependence Polysubstance abuse Schizoaffective disorder Schizoaffective disorder Tardive dyskinesia Social History Social History Household Members: None Household Members Other:: Patient resides in alf. Housing: [facility] Housing Other:: Alf [facility] Do you presently have visiting nurse or other home services: Yes Unable to assess alcohol history related to: Unknown Alcohol intake: unknown Patient Tobacco Use Status: Refuse Tobacco use screen Tobacco use type: Cigarette Cigarette Packs Per Day: 0.5 Cigarettes Per Day: 10.0 Years Smoked: 40 e-Cigarette/Vaping Use: Former Use Second Hand Smoke Exposure: No Substance Use Type: IV Drugs Advance Directives: Yes Advance Directives on File: Yes Advance Directives Date on File: 01/29/20 service: No Current occupational status: unemployed Sexual orientation: Straight/Heterosexual Physical Exam Vital Signs: Vital Signs: Last Vital Signs Temp 98.3 F 09/30/21 13:12 Pulse 122 H 09/30/21 14:21 Resp 18 09/30/21 14:21 BP 111/66 09/30/21 14:21 Pulse Ox 93 09/30/21 14:21 O2 Del Method 09/30/21 14:21 BMI result Body Mass Index 18.3 Appearance: Alert. Oriented X3. under the influence mild acute distress. intermittent yelling out loud agitated Eyes: Pupils equal, round and reactive to light. ENT: Pharynx normal. no hematoma seen Neck: Normal inspection. Neck supple. CVS: tachycardic heart rate and rhythm. Pulses normal. Respiratory: No respiratory distress. Breath sounds normal. Abdomen: Soft and non-tender. Skin: Skin warm and diaphoretic Normal skin color. Normal skin turgor. Extremities: No lower extremity edema. No calf ttp Neuro: Oriented X 3. No motor deficit. No sensory deficit. Course Course Course Narrative: will obtain basic labs and sign out patient to Colin MURRY IVF ordered, slightly better with PO medications MDM - Psych MDM Narrative Medical decision making narrative: 61 yo male with hx of mental health and substance abuse issues at this time the patient will need observation PO ativan and CT head/cspine for trauma. He is at his baseline presentation - agitation, making weird noises, yelling out loud. Discharge Plan Discharge Clinical Impression: Cocaine use disorder, moderate, dependence, Moderate opioid use disorder Patient Disposition: Still a Patient Prescriptions: No Action multivitamin [One Daily Multivitamin] Tablet 1 tab PO DAILY atorvastatin 20 mg tablet 1 tab PO DAILY aspirin 81 mg tablet,delayed release (DR/EC) 1 tab PO DAILY levothyroxine 50 mcg tablet 1 tab PO QAM nicotine 21 mg/24 hr patch 24 hour 21 mg topical DAILY folic acid 1 mg tablet 1 tab PO DAILY buprenorphine-naloxone [Suboxone] 8-2 mg film 1 strip sublingual BID
[2021-09-30 14:21] VITALS: BP 111/66; PULSE 122; RESP 18; O2SAT 93
[2021-09-30] MEDS: LORazepam 1 MG TABLET 2 MG PO (14:36)
[2021-09-30] MEDS: OLANZapine 5 MG TABLET PO (15:33)
[2021-09-30 16:17] LABS: MANUAL DIFF FLAG NO
[2021-09-30 16:20] LABS: Basophils Percent Auto 0.5 % (0-2); Eosinophils Percent Auto 0.2 % (0-4); Hematocrit 40.3 % (42.0-52.0); Hemoglobin 13.3 g/dl (14.0-18.0); Imm Gran Abs Auto 0.02 X10*3/uL (0.00-0.03); Imm Gran Pct Auto 0.3 % (0.0-0.4); Lymphocytes Absolute Auto 0.8 X10*3/uL (1.2-4.9); Lymphocytes Percent Auto 12.8 % (20-40); Mean Corpuscular Hemoglobin 29.9 pg (27.0-33.0); Mean Corpuscular Volume 90.6 fL (80.0-98.0); Mean Platelet Volume 10.5 fL (9.4-12.4); Monocytes Absolute Auto 0.7 X10*3/uL (0.1-1.2); Monocytes Percent Auto 11.3 % (2-11); Neutrophils Absolute Auto 4.7 x10*3/uL (2.0-8.3); Neutrophils Percent Auto 74.9 % (45-73); Platelet Count 151 X10*3/uL (160-400); Red Blood Count 4.45 X10*6/uL (4.60-5.80); Red Cell Distribution Width 15.3 % (11.0-16.0); White Blood Count 6.3 X10*3/uL (4.8-10.8)
[2021-09-30 16:36] LABS: COVID-19 Test Negative (Negative); IDNOW Serial# 16C4AD1C
[2021-09-30 16:39] LABS: Alanine Aminotransferase 37 U/L (0-40); Albumin Level 4.1 g/dL (3.5-5.0); Alkaline Phosphatase 117 U/L (39-117); Anion Gap 14 (12-20); Aspartate Amino Transferase 46 U/L (5-37); Bilirubin Direct 0.2 mg/dL (0.0-0.5); Bilirubin Total 0.3 mg/dL (0.0-1.0); Blood Urea Nitrogen 20 mg/dL (9-16); Calcium 9.1 mg/dL (8.4-10.2); Carbon Dioxide 27 mmol/L (22-29); Chloride 107 mmol/L (96-108); Estimated Glomerular Filt Rate 51; Glucose Random 114 mg/dL (60-115); Magnesium 2.1 mg/dL (1.6-2.6); Potassium 5.1 mmol/L (3.3-5.1); Sodium 143 mmol/L (135-145); Total Protein 7.9 g/dL (6.5-8.0)
[2021-09-30] MEDS: 0.9 % Sodium Chloride 1,000 ML 999 ML IV ×3 (17:41→20:28)
[2021-09-30 21:44] LABS: Anion Gap 13 (12-20); Blood Urea Nitrogen 19 mg/dL (9-16); Calcium 8.1 mg/dL (8.4-10.2); Carbon Dioxide 21 mmol/L (22-29); Chloride 109 mmol/L (96-108); Creatinine Clr Calc Pharmacy 56.3; Estimated Glomerular Filt Rate > 60; Glucose Random 149 mg/dL (60-115); Potassium 4.4 mmol/L (3.3-5.1); Sodium 139 mmol/L (135-145)
--- NOTE | 2021-09-30 22:39 | PC.NURSE ---
I assumed nursing care of Maynor at 1900. Since that time he has been resting in hallway stretcher, talking and singing to himself and frequently searching through his belongings for something i lost. He is frequently OOB at the bedside and back into bed. He has taken PO food and fluids (sandwiches, crackers, pudding, vin ales) without difficulty. He has ambulated to and from the bathroom independently and with steady gait . He denies any SI or HI. He has been discharged at this time. he verbalized an understanding of all DC orders and ambulated out of the ED independently and with steady gait .
== END 2021-09-30 22:38 | disposition home or self-care (01) ==
PROVIDERS: Physician Assistant; Emergency Provider Emergency Medicine
DX: F14.20 Cocaine dependence, uncomplicated (principal); F11.20 Opioid dependence, uncomplicated; R45.1 Restlessness and agitation; B20 Human immunodeficiency virus [HIV] disease; F25.1 Schizoaffective disorder, depressive type; F17.210 Nicotine dependence, cigarettes, uncomplicated; Z79.899 Other long term (current) drug therapy; Z79.02 Long term (current) use of antithrombotics/antiplatelets; Z79.82 Long term (current) use of aspirin
CPT/HCPCS: 36415; 70450; 72125; 80048; 80076; 82550; 83735; 85025; 87635; 96360; 96361; 99285

== ENCOUNTER 2021-10-07 13:03 | Inpatient (IN) | payer MEDICAID, SELFPAY ==
[2021-10-07] VITALS (26 sets, daily range): BP systolic 45–166; BP diastolic 15–111; PULSE 50–159; RESP 8–19; TEMP 33.8–36.8; O2SAT 93–100; BMI 21.3
--- NOTE | ~2021-10-07 | CT_ITS ---
EXAMINATION: CT CHEST, ABDOMEN, AND PELVIS WITHOUT CONTRAST CLINICAL INFORMATION: Cardiac arrest. COMPARISON: CT scans dating between August 24, 2020 and December 03, 2010. TECHNIQUE: Multidetector volumetric CT imaging of the chest, abdomen, and pelvis was obtained without oral or intravenous contrast. Axial MIP volume rendering provided. Sagittal and coronal reformatted images were obtained. This CT examination was performed using dose optimization techniques as appropriate, variously including the following: *Automated exposure control *Adjustment of mA and/or kV according to patient size (this includes techniques or standardized protocols for targeted exams where dose is matched to indication/reason for exam; i.e. extremities or head) *Use of iterative reconstruction technique DLP: 615 mGy-cm FINDINGS: LUNGS: Tip of endotracheal tube within the trachea, approximately 3 cm above the love. Bibasilar dependent atelectasis and/or infiltrate. Multiple, 0.7 cm or less, bilateral nodular lung parenchymal densities. MEDIASTINUM: Severe calcification of the left anterior descending coronary artery. PLEURA: There is no pleural effusion or pneumothorax. No pleural mass or thickening. AXILLA: No lymphadenopathy. LIVER, GALLBLADDER, AND BILIARY TREE: The liver appears unremarkable in size, shape, and attenuation. No focal hepatic lesion or biliary ductal dilatation is appreciated. Unremarkable appearance of the gallbladder. PANCREAS: Unremarkable SPLEEN: Unremarkable ADRENAL GLANDS: Unremarkable KIDNEYS AND URETERS: Subcentimeter right mid simple renal cyst. The kidneys otherwise appear unremarkable in size, shape, and attenuation. 0.2 cm, nonobstructing right lower pole renal collecting system stone. No stone identified in the left. No hydronephrosis or hydroureter identified on either side. BLADDER: Poorly distended, therefore suboptimally evaluated. Grossly unremarkable. GASTROINTESTINAL TRACT: Tip of nasogastric tube within the gastric lumen. Suspect mild ileus. ABDOMINAL WALL: No significant hernia is appreciated. LYMPH NODES: No evidence of adenopathy by size criteria. VASCULAR: 4.7 cm fusiform infrarenal abdominal aortic aneurysm containing mural thrombus. PELVIC VISCERA: Mildly enlarged prostate. OSSEOUS STRUCTURES: Poorly circumscribed lytic lesion involving L4. Nondisplaced fracture of the sternum. Fractures involving the anterolateral aspects of the left second through fifth rib. The third rib fracture is displaced, with fracture fragments overriding by approximately 0.5 cm. Suspect nondisplaced fractures involving the anterolateral aspects of the right second and third ribs. CT/CT abdomen pelvis wo con IMPRESSION: Severe calcification of the left anterior descending coronary artery. Fractures of the sternum and bilateral ribs as detailed above, likely related to chest compressions. Bibasilar dependent atelectasis and/or infiltrate. No evidence of pneumothorax or pleural fluid. Poorly circumscribed lytic lesion involving L4. Cannot exclude metastatic disease or myeloma. Multiple, 0.7 cm or less, bilateral nodular lung parenchymal densities. 4.7 cm fusiform infrarenal abdominal aortic aneurysm containing mural thrombus. Additional findings, as above.
--- NOTE | ~2021-10-07 | CT_ITS ---
EXAMINATION: CT HEAD W/O IV CONTRAST CT CERVICAL SPINE W/O IV CONTRAST CLINICAL INFORMATION: History of cardiac arrest. Lack of neurologic response. COMPARISON: 03/04/2021 and 09/30/2021. TECHNIQUE: Head - Contiguous axial imaging of the head was performed from the skull base to the vertex without the administration of intravenous contrast, and axial images are reconstructed at 2 mm and 5 mm slice thickness. Cervical spine - A volumetric, helical CT acquisition of the cervical spine was obtained without contrast; in addition to the standard set of axial images, multiplanar reformatted images were provided in the coronal and sagittal imaging planes. This CT examination was performed using dose optimization techniques as appropriate, variously including the following: *Automated exposure control *Adjustment of mA and/or kV according to patient size (this includes techniques or standardized protocols for targeted exams where dose is matched to indication/reason for exam; i.e. extremities or head) *Use of iterative reconstruction technique DLP: 658.83 mGy-cm for the head 411.53 mGy-cm for the cervical spine FINDINGS: HEAD: No acute findings. No evidence of cerebral edema. No intracranial hemorrhage, extra-axial fluid collection, focal mass effect or midline shift. The adams-white matter differentiation is maintained. No evidence of a dense cerebral artery sign. No acute major vascular territory infarction. Again noted is the parenchymal volume loss with commensurate prominence of ventricles and sulci. The cerebellar tonsils are in normal position. The calvarium is intact. The visualized paranasal sinuses, mastoid air cells and middle ear cavities are well aerated. The temporomandibular joints are unremarkable. The orbits and globes are unremarkable. CERVICAL SPINE: The craniocervical junction is normal. The occipital condyles, dens and atlantodental articulation are intact. The vertebral body heights and alignment are maintained. No fractures in the anterior or posterior elements. No prevertebral soft tissue swelling. The disc spaces are maintained. The facet joints and uncovertebral joints are unremarkable. No stenosis of the central spinal canal or neural foramina. No fluid collection or hematoma in the visualized neck. There are chronic emphysematous changes in the partially visualized lung apices. The endotracheal tube is partially included in the [id number]. CT/CT cervical spine wo con IMPRESSION: * No intracranial hemorrhage or other acute intracranial pathology compared to 09/30/2021.. * No fracture or malalignment in the cervical spine.
--- NOTE | 2021-10-07 13:19 | ECG_ITS ---
Test Reason : POST CARDIAC ARREST Blood Pressure : / mmHG Vent. Rate : 198 BPM Atrial Rate : 000 BPM P-R Int : 000 ms QRS Dur : 094 ms QT Int : 224 ms P-R-T Axes : 000 077 080 degrees QTc Int : 406 ms Sinus tachycardia Right bundle branch block ST more depressed Septal leads Abnormal ECG When compared with ECG of 07-OCT-2021 13:03, Heart rate has increased ST more depressed Septal leads Referred By: Becky Lemon Electronically Signed By:SOFIA CANAS
--- NOTE | 2021-10-07 13:23 | ED.CPR ---
HPI - CPR General Chief Complaint: Cardiac Arrest/CPR Stated Complaint: CARDIAC ARREST Time Seen by Provider: 10/07/21 13:12 Source: EMS Mode of arrival: EMS Limitations: other (unresponsive) History of Present Illness HPI narrative: 61 yo male with hx of opiate use disorder with frequent overdoses, depression, asthma, hep C, HIV, schizoaffective disorder was found down [place] the park. EMS reports found in asystole, given a total of 4mg IN narcan, 2 epi, tiffanie airway with ROSC, BS > 100. No shocks advised. Otherwise not known when last seen at baseline. complaint: found unresponsive Onset (ago): unknown Timing confirmed by: other (bystanders in park) Place: other (park) Bystander CPR performed: Yes AED applied by bystander/braiding machine operator: Yes Shock advised: No Initial findings in the field: unresponsive, no pulse and other rhythm (asytole) ROSC in the field: Yes Associated injuries: No Known history of: drug abuse Treatments prior to arrival: other airway device (tiffanie airway), chest compressions and epinephrine mgs # (2) Related Data Home Medications Medication Instructions Recorded Confirmed aspirin 81 mg tablet,delayed 1 tab PO DAILY 08/13/21 09/10/21 release atorvastatin 20 mg tablet 1 tab PO DAILY 08/13/21 09/10/21 folic acid 1 mg tablet 1 tab PO DAILY 08/13/21 09/10/21 levothyroxine 50 mcg tablet 1 tab PO QAM 08/13/21 09/10/21 multivitamin (One Daily 1 tab PO DAILY 08/13/21 09/10/21 Multivitamin tablet) nicotine 21 mg/24 hr daily 21 mg topical DAILY 08/13/21 09/10/21 transdermal patch buprenorphine 8 mg-naloxone 2 mg 1 strip sublingual BID 09/10/21 09/10/21 sublingual film (Suboxone) Previous Rx's Medication Instructions Recorded naloxone 4 mg/actuation nasal 4 mg intranasal Q2M PRN opioid 09/30/21 spray (Narcan) overdose #2 ea Allergies Allergy/AdvReac Type Severity Reaction Status Date / Time Onions Allergy Swelling Uncoded 08/20/21 12:02 Review of Systems Review of Systems: ROS unable to be obtained due to unresponsive state [facility] Past Medical History Attestation statement: The following information was validated with the patient. Medical History AIDS Asthma Cocaine use disorder, severe, dependence Depression Hepatitis C HIV (human immunodeficiency virus infection) MDD (major depressive disorder), recurrent episode, severe Opioid dependence Opioid use disorder, severe, in early remission, on maintenance therapy, dependence Polysubstance abuse Schizoaffective disorder Schizoaffective disorder Tardive dyskinesia Social History Social History Household Members: None Household Members Other:: Patient resides in senior care. Housing: Half-Way Housing Other:: Longterm [facility] Home Do you presently have visiting nurse or other home services: Yes Unable to assess alcohol history related to: Unknown Alcohol intake: unknown Patient Tobacco Use Status: Refuse Tobacco use screen Tobacco use type: Cigarette Cigarette Packs Per Day: 0.5 Cigarettes Per Day: 10.0 Years Smoked: 40 e-Cigarette/Vaping Use: Former Use Second Hand Smoke Exposure: No Substance Use Type: IV Drugs Advance Directives: Yes Advance Directives on File: Yes Advance Directives Date on File: 01/29/20 service: No Current occupational status: unemployed Sexual orientation: Straight/Heterosexual Physical Exam Vital Signs: Vital Signs: Last Vital Signs Temp 93.2 F L 10/07/21 15:41 Pulse 94 10/07/21 15:41 Resp 13 10/07/21 15:41 BP 159/86 H 10/07/21 15:41 Pulse Ox 99 10/07/21 15:41 O2 Del Method 10/07/21 15:41 FiO2 21 10/07/21 15:18 BMI result Body Mass Index 21.3 Appearance: unreponsive, tiffanie airway in place Eyes: Pupils fixed and dilated ENT: Pharynx normal. no emesis noted Neck: Normal inspection. Neck supple. CVS: bradycardic heart rate and rhythm. Pulses normal. Respiratory: no spontaneous respirations, not breathing over vent, no wheezes heard Abdomen: Soft and nontender. atraumatic Back: atraumatic Skin: Skin warm and dry. Normal skin color. Extremities: No lower extremity edema. Neuro: no response to pain, no movements Course Course Course Narrative: notified sister Tamy of grave prognosis - she is his legal guardian - aware of lack of neurologic movements and concern for irreversible anoxic brain injury she states he is a FULL [employer] her number is [phone] blood in OG tube 100cc - protonix ordered. bleeding has stopped still fixed and dilated, fluids ordered, on levophed requiring pressors to maintain blood pressure no response to pain, not breathing over the vent ICU involved Dr. Alanis, recommends cerebral flow study calcium and albuterol for hyperK ordered apnea not breathing over the vent at this time did trial for almost 40 seconds. I did speak to another sister Rocío she is aware that there is no neurologic findings at this time and concern for possible severe anxoic brain injury. fixed and dilated seems to have some respiratory drive at this time very minimal 327pm almost agonal breathing over the vent Dr. Alanis to admit patient MDM - Cardiac Arrest/CPR MDM Narrative Medical decision making narrative: 61 yo male with hx of opiate use disorder with frequent overdoses, depression, asthma, hep C, HIV, schizoaffective disorder here after being found down presumed overdose given history and frequent visits to the ED for overdose - ROSC in field, at this time labs, CT scan, post ROSC care - requiring 2 pressors at this time to maintain. I have discussed his neuro exam with family who are still processing the news. Lab Data Result diagrams: 10/07/21 13:32 10/07/21 13:32 Labs: Lab Results 10/07/21 10/07/21 10/07/21 Range/Units 13:10 13:32 13:32 WBC 4.4 L (4.8-10.8) X10*3/uL RBC 3.79 L (4.60-5.80) X10*6/uL Hgb 11.3 L (14.0-18.0) g/dl Hct 36.2 L (42.0-52.0) % MCV 95.5 (80.0-98.0) fL MCH 29.8 (27.0-33.0) pg MCHC 31.2 (31.0-36.0) g/dl RDW 15.6 (11.0-16.0) % Plt Count 96 L D (160-400) X10*3/uL MPV 10.4 (9.4-12.4) fL Immature Gran % (Auto) 3.4 H (0.0-0.4) % Neut % (Auto) 39.2 L (45-73) % Lymph % (Auto) 48.1 H (20-40) % Union % (Auto) 7.0 (2-11) % Eos % (Auto) 1.6 (0-4) % Baso % (Auto) 0.7 (0-2) % Lymph # (Auto) 2.1 (1.2-4.9) X10*3/uL Union # (Auto) 0.3 (0.1-1.2) X10*3/uL Eos # (Auto) 0.1 (0.0-0.4) X10*3/uL Baso # (Auto) 0.0 (0.0-0.2) X10*3/uL Abs Immat Gran (auto) 0.15 H (0.00-0.03) X10*3/uL Absolute Neuts (auto) 1.7 L (2.0-8.3) x10*3/uL Absolute Nucleated RBC 0.000 (0.0-0.012) X10*3/uL Nucleated RBC % (auto) 0.0 (0.0-0.2) /100WBC Smear Tech's Comments VERIFIED PT (10.0-13.1) SEC INR (0.9-1.1) VBG pH (7.32-7.43) VBG pCO2 mmHg VBG pO2 mmHg VBG HCO3 (22-26) mmol/L VBG O2 Saturation % VBG Base Excess mmol/L Sodium 139 (135-145) mmol/L Potassium 5.9 H D (3.3-5.1) mmol/L Chloride 104 (96-108) mmol/L Carbon Dioxide 16 L (22-29) mmol/L Anion Gap 25 H (12-20) BUN 16 (9-16) mg/dL Creatinine 1.16 (0.5-1.4) mg/dL Estim Creat Clear Calc 56.0 Estimated GFR > 60 POC Glucose 317 H (60-115) mg/dL Random Glucose 267 H D (60-115) mg/dL Lactic Acid (0.5-2.0) mmol/L Calcium 9.2 D (8.4-10.2) mg/dL Magnesium 2.5 (1.6-2.6) mg/dL Total Bilirubin 0.3 (0.0-1.0) mg/dL AST 175 H (5-37) U/L ALT 97 H (0-40) U/L Alkaline Phosphatase 119 H (39-117) U/L Total Creatine Kinase 133 (38-174) U/L Troponin I High Sens (<3.5-35.0) ng/L Total Protein 6.1 L D (6.5-8.0) g/dL Albumin 3.0 L D (3.5-5.0) g/dL Lipase 55 (8-78) U/L Urine Color Urine Appearance Urine pH (5.0-8.0) Ur Specific [place] (1.005-1.025) Urine Protein (Neg-Trace) mg/dL Urine Glucose (UA) (Negative) mg/dL Urine Ketones (Negative) mg/dL Urine Blood (Negative) Urine Nitrite (Negative) Ur Leukocyte Esterase (Negative) Urine RBC (0-2) /HPF Urine WBC (0-5) /HPF Ur Squamous Epith Cells (0-2) /HPF Urine Bacteria (None Seen) Hyaline Casts (0-2) /LPF Urine Opiates Screen (Not Detect) Urine Fentanyl Screen (Not Detect) Ur Barbiturates Screen (Not Detect) Ur Phencyclidine Scrn (Not Detect) Ur Amphetamines Screen (Not Detect) U Benzodiazepines Scrn (Not Detect) Urine Cocaine Screen (Not Detect) U Marijuana (THC) Screen (Not Detect) Ethyl Alcohol < 10 mg/dL COVID-19 (NEETU) (Negative) COVID-19 Clin Com Blood Type Antibody Screen 10/07/21 10/07/21 10/07/21 Range/Units 13:32 13:32 13:32 WBC (4.8-10.8) X10*3/uL RBC (4.60-5.80) X10*6/uL Hgb (14.0-18.0) g/dl Hct (42.0-52.0) % MCV (80.0-98.0) fL MCH (27.0-33.0) pg MCHC (31.0-36.0) g/dl RDW (11.0-16.0) % Plt Count (160-400) X10*3/uL MPV (9.4-12.4) fL Immature Gran % (Auto) (0.0-0.4) % Neut % (Auto) (45-73) % Lymph % (Auto) (20-40) % Union % (Auto) (2-11) % Eos % (Auto) (0-4) % Baso % (Auto) (0-2) % Lymph # (Auto) (1.2-4.9) X10*3/uL Union # (Auto) (0.1-1.2) X10*3/uL Eos # (Auto) (0.0-0.4) X10*3/uL Baso # (Auto) (0.0-0.2) X10*3/uL Abs Immat Gran (auto) (0.00-0.03) X10*3/uL Absolute Neuts (auto) (2.0-8.3) x10*3/uL Absolute Nucleated RBC (0.0-0.012) X10*3/uL Nucleated RBC % (auto) (0.0-0.2) /100WBC Smear Tech's Comments PT 17.2 H (10.0-13.1) SEC INR 1.5 H (0.9-1.1) VBG pH (7.32-7.43) VBG pCO2 mmHg VBG pO2 mmHg VBG HCO3 (22-26) mmol/L VBG O2 Saturation % VBG Base Excess mmol/L Sodium (135-145) mmol/L Potassium (3.3-5.1) mmol/L Chloride (96-108) mmol/L Carbon Dioxide (22-29) mmol/L Anion Gap (12-20) BUN (9-16) mg/dL Creatinine (0.5-1.4) mg/dL Estim Creat Clear Calc Estimated GFR POC Glucose (60-115) mg/dL Random Glucose (60-115) mg/dL Lactic Acid 11.5 H* (0.5-2.0) mmol/L Calcium (8.4-10.2) mg/dL Magnesium (1.6-2.6) mg/dL Total Bilirubin (0.0-1.0) mg/dL AST (5-37) U/L ALT (0-40) U/L Alkaline Phosphatase (39-117) U/L Total Creatine Kinase (38-174) U/L Troponin I High Sens 189.1 H* D (<3.5-35.0) ng/L Total Protein (6.5-8.0) g/dL Albumin (3.5-5.0) g/dL Lipase (8-78) U/L Urine Color Urine Appearance Urine pH (5.0-8.0) Ur Specific [place] (1.005-1.025) Urine Protein (Neg-Trace) mg/dL Urine Glucose (UA) (Negative) mg/dL Urine Ketones (Negative) mg/dL Urine Blood (Negative) Urine Nitrite (Negative) Ur Leukocyte Esterase (Negative) Urine RBC (0-2) /HPF Urine WBC (0-5) /HPF Ur Squamous Epith Cells (0-2) /HPF Urine Bacteria (None Seen) Hyaline Casts (0-2) /LPF Urine Opiates Screen (Not Detect) Urine Fentanyl Screen (Not Detect) Ur Barbiturates Screen (Not Detect) Ur Phencyclidine Scrn (Not Detect) Ur Amphetamines Screen (Not Detect) U Benzodiazepines Scrn (Not Detect) Urine Cocaine Screen (Not Detect) U Marijuana (THC) Screen (Not Detect) Ethyl Alcohol mg/dL COVID-19 (NEETU) (Negative) COVID-19 Clin Com Blood Type Antibody Screen 10/07/21 10/07/21 10/07/21 Range/Units 13:32 13:38 14:17 WBC (4.8-10.8) X10*3/uL RBC (4.60-5.80) X10*6/uL Hgb (14.0-18.0) g/dl Hct (42.0-52.0) % MCV (80.0-98.0) fL MCH (27.0-33.0) pg MCHC (31.0-36.0) g/dl RDW (11.0-16.0) % Plt Count (160-400) X10*3/uL MPV (9.4-12.4) fL Immature Gran % (Auto) (0.0-0.4) % Neut % (Auto) (45-73) % Lymph % (Auto) (20-40) % Union % (Auto) (2-11) % Eos % (Auto) (0-4) % Baso % (Auto) (0-2) % Lymph # (Auto) (1.2-4.9) X10*3/uL Union # (Auto) (0.1-1.2) X10*3/uL Eos # (Auto) (0.0-0.4) X10*3/uL Baso # (Auto) (0.0-0.2) X10*3/uL Abs Immat Gran (auto) (0.00-0.03) X10*3/uL Absolute Neuts (auto) (2.0-8.3) x10*3/uL Absolute Nucleated RBC (0.0-0.012) X10*3/uL Nucleated RBC % (auto) (0.0-0.2) /100WBC Smear Tech's Comments PT (10.0-13.1) SEC INR (0.9-1.1) VBG pH 6.88 L* (7.32-7.43) VBG pCO2 75 mmHg VBG pO2 110 mmHg VBG HCO3 14 L (22-26) mmol/L VBG O2 Saturation 93.0 % VBG Base Excess -19.2 mmol/L Sodium (135-145) mmol/L Potassium (3.3-5.1) mmol/L Chloride (96-108) mmol/L Carbon Dioxide (22-29) mmol/L Anion Gap (12-20) BUN (9-16) mg/dL Creatinine (0.5-1.4) mg/dL Estim Creat Clear Calc Estimated GFR POC Glucose (60-115) mg/dL Random Glucose (60-115) mg/dL Lactic Acid (0.5-2.0) mmol/L Calcium (8.4-10.2) mg/dL Magnesium (1.6-2.6) mg/dL Total Bilirubin (0.0-1.0) mg/dL AST (5-37) U/L ALT (0-40) U/L Alkaline Phosphatase (39-117) U/L Total Creatine Kinase Cancelled (38-174) U/L Troponin I High Sens (<3.5-35.0) ng/L Total Protein (6.5-8.0) g/dL Albumin (3.5-5.0) g/dL Lipase (8-78) U/L Urine Color Urine Appearance Urine pH (5.0-8.0) Ur Specific [place] (1.005-1.025) Urine Protein (Neg-Trace) mg/dL Urine Glucose (UA) (Negative) mg/dL Urine Ketones (Negative) mg/dL Urine Blood (Negative) Urine Nitrite (Negative) Ur Leukocyte Esterase (Negative) Urine RBC (0-2) /HPF Urine WBC (0-5) /HPF Ur Squamous Epith Cells (0-2) /HPF Urine Bacteria (None Seen) Hyaline Casts (0-2) /LPF Urine Opiates Screen (Not Detect) Urine Fentanyl Screen (Not Detect) Ur Barbiturates Screen (Not Detect) Ur Phencyclidine Scrn (Not Detect) Ur Amphetamines Screen (Not Detect) U Benzodiazepines Scrn (Not Detect) Urine Cocaine Screen (Not Detect) U Marijuana (THC) Screen (Not Detect) Ethyl Alcohol mg/dL COVID-19 (NEETU) (Negative) COVID-19 Clin Com Blood Type O Positive Antibody Screen NEGATIVE 10/07/21 10/07/21 10/07/21 Range/Units 14:41 14:41 14:43 WBC (4.8-10.8) X10*3/uL RBC (4.60-5.80) X10*6/uL Hgb (14.0-18.0) g/dl Hct (42.0-52.0) % MCV (80.0-98.0) fL MCH (27.0-33.0) pg MCHC (31.0-36.0) g/dl RDW (11.0-16.0) % Plt Count (160-400) X10*3/uL MPV (9.4-12.4) fL Immature Gran % (Auto) (0.0-0.4) % Neut % (Auto) (45-73) % Lymph % (Auto) (20-40) % [place] % (Auto) (2-11) % Eos % (Auto) (0-4) % Baso % (Auto) (0-2) % Lymph # (Auto) (1.2-4.9) X10*3/uL [place] # (Auto) (0.1-1.2) X10*3/uL Eos # (Auto) (0.0-0.4) X10*3/uL Baso # (Auto) (0.0-0.2) X10*3/uL Abs Immat Gran (auto) (0.00-0.03) X10*3/uL Absolute Neuts (auto) (2.0-8.3) x10*3/uL Absolute Nucleated RBC (0.0-0.012) X10*3/uL Nucleated RBC % (auto) (0.0-0.2) /100WBC Smear Tech's Comments PT (10.0-13.1) SEC INR (0.9-1.1) VBG pH (7.32-7.43) VBG pCO2 mmHg VBG pO2 mmHg VBG HCO3 (22-26) mmol/L VBG O2 Saturation % VBG Base Excess mmol/L Sodium (135-145) mmol/L Potassium (3.3-5.1) mmol/L Chloride (96-108) mmol/L Carbon Dioxide (22-29) mmol/L Anion Gap (12-20) BUN (9-16) mg/dL Creatinine (0.5-1.4) mg/dL Estim Creat Clear Calc Estimated GFR POC Glucose (60-115) mg/dL Random Glucose (60-115) mg/dL Lactic Acid (0.5-2.0) mmol/L Calcium (8.4-10.2) mg/dL Magnesium (1.6-2.6) mg/dL Total Bilirubin (0.0-1.0) mg/dL AST (5-37) U/L ALT (0-40) U/L Alkaline Phosphatase (39-117) U/L Total Creatine Kinase (38-174) U/L Troponin I High Sens (<3.5-35.0) ng/L Total Protein (6.5-8.0) g/dL Albumin (3.5-5.0) g/dL Lipase (8-78) U/L Urine Color Yellow Urine Appearance Clear Urine pH 6.5 (5.0-8.0) Ur Specific [place] 1.020 (1.005-1.025) Urine Protein 30 (1+) H (Neg-Trace) mg/dL Urine Glucose (UA) Negative (Negative) mg/dL Urine Ketones Trace (Negative) mg/dL Urine Blood Negative (Negative) Urine Nitrite Negative (Negative) Ur Leukocyte Esterase Negative (Negative) Urine RBC 3-5 H (0-2) /HPF Urine WBC 6-10 H (0-5) /HPF Ur Squamous Epith Cells 0-2 (0-2) /HPF Urine Bacteria None Seen (None Seen) Hyaline Casts 0-2 (0-2) /LPF Urine Opiates Screen POSITIVE H (Not Detect) Urine Fentanyl Screen POSITIVE H (Not Detect) Ur Barbiturates Screen Not Detected (Not Detect) Ur Phencyclidine Scrn Not Detected (Not Detect) Ur Amphetamines Screen Not Detected (Not Detect) U Benzodiazepines Scrn Not Detected (Not Detect) Urine Cocaine Screen Not Detected (Not Detect) U Marijuana (THC) Screen Not Detected (Not Detect) Ethyl Alcohol mg/dL COVID-19 (NEETU) Negative (Negative) COVID-19 Clin Com See Note Blood Type Antibody Screen ECG Data Attestation: I personally reviewed and interpreted this ECG as follows: ECG interpretation date: 10/07/21 ECG interpretation time: 14:12 Interpretation: Rate: 62 Rhythm: irregular junctional [place]: rightward tall P waves. varying ARNULFO. Normal QRS complex. ST T wave : inverted t waves V1-V2, ST depressions V4-V5 qTC: normal prior studies: changed from prior The study has been interpreted contemporaneously by me. EKG #2 Rate: 98 Rhythm: NSR [place]: normal Normal P waves. Normal ARNULFO. RBBB ST T wave : no HAKEEM, inverted t wvaes in V1-V2 qTC: normal prior studies: no acute ischemia The study has been interpreted contemporaneously by me. . Procedures EJ/Peripheral Line Neck L: Time Out Performed: Yes Skin Cleansed in Sterile Fashion: Yes Size (gauge): 18 IV Secured and Dressing Applied: Yes Patient Tolerated Procedure: well and no complications FAST Exam FAST Exam 1: Fluid in Morison's pouch: No Fluid in Splenorenal Junction: No Fluid around bladder, Transverse view: No Fluid around bladder, Sagittal view: No Fluid in Pericardial Sac: No Gross Wall Motion Abnormality: No Study normal for this patient: Yes Images saved for further review: No Intubation Time out performed: Yes sedative: none Laryngoscope: other (glidescope 4 blade) ET Tube Size: 7.5 ET Tube Uncuffed: Yes Tube Secured Depth (cm): 23 Tube Secured Location: lips Tube Placement Confirmation: visualized tube passing through cords, equal breath sounds bilaterally, no breath sounds over epigastrium and confirmation by capnometry Patient Tolerated Procedure: well and no complications Intubation Complications: none Critical Care Time Critical Care Time Critical Care Time: Yes Total Critical Care Time: 90 Attestation: review of records, post cardiac arrest care, ventilator and pressor support, family discusssions, medical consult I attest to this time spent taking care of the patient Discharge Plan Discharge Clinical Impression: Cardiac arrest, Active substance abuse, Acidosis, lactic Patient Disposition: Admitted As Inpatient Prescriptions: No Action multivitamin [One Daily Multivitamin] Tablet 1 tab PO DAILY atorvastatin 20 mg tablet 1 tab PO DAILY aspirin 81 mg tablet,delayed release (DR/EC) 1 tab PO DAILY levothyroxine 50 mcg tablet 1 tab PO QAM nicotine 21 mg/24 hr patch 24 hour 21 mg topical DAILY folic acid 1 mg tablet 1 tab PO DAILY naloxone [Narcan] 4 mg/actuation spray,non-aerosol 4 mg intranasal Q2M PRN (Reason: opioid overdose) Qty: 2 0RF Rx Instructions: spray 1 dose into ONE nostril; alternate nostrils w each dose until help arrives buprenorphine-naloxone [Suboxone] 8-2 mg film 1 strip sublingual BID
--- NOTE | 2021-10-07 13:28 | PC.NURSE ---
Due to Post arrest HoTN: Nor epi gtt mixed 8mg/250ml in NS Epi gtt 5mg/250ml in D5 Witnessed by finisher fiberglass boat partsNORMA Whitfield RN
[2021-10-07] MEDS: 0.9 % Sodium Chloride 1,000 ML 999 ML IV ×3 (13:30→15:06)
[2021-10-07 13:41] LABS: Glucose, Whole Blood 317 mg/dL (60-115)
[2021-10-07 13:41] LABS: Eosinophils Absolute Auto 0.1 X10*3/uL (0.0-0.4); Eosinophils Percent Auto 1.6 % (0-4); Mean Corpuscular Hemoglobin 29.8 pg (27.0-33.0); Mean Platelet Volume 10.4 fL (9.4-12.4); Monocytes Absolute Auto 0.3 X10*3/uL (0.1-1.2); PLT CLUMP 1; Red Cell Distribution Width 15.6 % (11.0-16.0); SCAN SMEAR FLAG 1
[2021-10-07 13:43] LABS: Basophils Percent Auto 0.7 % (0-2); Hematocrit 36.2 % (42.0-52.0); Hemoglobin 11.3 g/dl (14.0-18.0); Imm Gran Abs Auto 0.15 X10*3/uL (0.00-0.03); Imm Gran Pct Auto 3.4 % (0.0-0.4); Lymphocytes Absolute Auto 2.1 X10*3/uL (1.2-4.9); Lymphocytes Percent Auto 48.1 % (20-40); MANUAL DIFF FLAG SCAN; Mean Corpuscular HGB Conc 31.2 g/dl (31.0-36.0); Mean Corpuscular Volume 95.5 fL (80.0-98.0); Neutrophils Absolute Auto 1.7 x10*3/uL (2.0-8.3); Neutrophils Percent Auto 39.2 % (45-73); Red Blood Count 3.79 X10*6/uL (4.60-5.80)
[2021-10-07 13:45] LABS: VBG Base Excess -19.2 mmol/L; VBG HCO3 14 mmol/L (22-26); VBG pCO2 75 mmHg; VBG pH 6.88 (7.32-7.43); VBG pO2 110 mmHg
[2021-10-07 13:47] LABS: INTERNATIONAL NORM RATIO 1.5 (0.9-1.1); Prothrombin Time 17.2 SEC (10.0-13.1)
[2021-10-07 13:48] LABS: Venous Blood Gas Refer to POC result
[2021-10-07 13:55] LABS: White Blood Count 4.4 X10*3/uL (4.8-10.8)
[2021-10-07 13:56] LABS: Platelet Count 96 X10*3/uL (160-400)
[2021-10-07 13:59] LABS: Alanine Aminotransferase 97 U/L (0-40); Alkaline Phosphatase 119 U/L (39-117); Anion Gap 25 (12-20); Aspartate Amino Transferase 175 U/L (5-37); Bilirubin Total 0.3 mg/dL (0.0-1.0); Blood Urea Nitrogen 16 mg/dL (9-16); Calcium 9.2 mg/dL (8.4-10.2); Carbon Dioxide 16 mmol/L (22-29); Chloride 104 mmol/L (96-108); Estimated Glomerular Filt Rate > 60; Ethanol < 10 mg/dL; Glucose Random 267 mg/dL (60-115); Lipase 55 U/L (8-78); Magnesium 2.5 mg/dL (1.6-2.6); Potassium 5.9 mmol/L (3.3-5.1); SLIDE REVIEW VERIFIED; Sodium 139 mmol/L (135-145); Total Protein 6.1 g/dL (6.5-8.0)
[2021-10-07] MEDS: EPINEPHrine 5 MG in Dextrose 5 % 250 ML 36.72 MG IVCONT (14:07)
[2021-10-07] MEDS: Pantoprazole Sodium 40 MG/10 ML VIAL 80 MG IVPUSH (14:14)
[2021-10-07 14:15] LABS: Lactic Acid 11.5 mmol/L (0.5-2.0); Troponin-I High Sensitivity 189.1 ng/L (<3.5-35.0)
--- NOTE | 2021-10-07 14:18 | ECG_ITS ---
Test Reason : reepat post cardiac arrest Blood Pressure : / mmHG Vent. Rate : 062 BPM Atrial Rate : 000 BPM P-R Int : 000 ms QRS Dur : 138 ms QT Int : 468 ms P-R-T Axes : 000 103 051 degrees QTc Int : 475 ms Normal sinus rhythm with a competing junctional pacemaker Right bundle branch block Abnormal ECG When compared with ECG of 20-AUG-2021 12:40, Right bundle branch block is now Present Referred By: Becky Lemon Electronically Signed By:SOFIA CANAS
[2021-10-07] MEDS: Calcium Gluconate/NaCl,Iso-Osm 2 GM/100 ML PLAST..BAG IV (14:20)
[2021-10-07 14:55] LABS: Appearance Urine Clear; Color Urine Yellow; Glucose Urine UA Negative (Negative); Leukocyte Esterase Urine Negative (Negative); Nitrite Urine Negative (Negative); PH 6.5 (5.0-8.0); Urine Blood Negative (Negative); Urine Ketones Trace mg/dL (Negative); Urine Protein 30 (1+) mg/dL (Neg-Trace)
--- NOTE | 2021-10-07 14:55 | P.CONCC_ITS ---
History of Present Illness Data of Consult Service Date: 10/07/21 Requesting physician: Becky Lemon Primary Care Provider: [facility] Reason for consult: s/p cardiac arrest Called to the ED to see Mr. Shepard who is on the ventilator and pressors in the ED after OHCA. Briefly, this is a 61 yo male with hx of opiate use disorder with frequent overdoses, depression, asthma, hepatitis C, HIV, schizoaffective disorder. [place]. Bystanders did CPR. EMS reports found in asystole, given a total of 4mg IN narcan, 2 epi, tiffanie airway with ROSC. BS > 100. No s hocks given. Otherwise not known when last seen at baseline. I examined the patient in the ED. HR now 96, SR, BP 99/50, on epi 0.2ug and Levophed 0.08 ug. Pupils are fixed, about 7mm. He's completely unresponsive and not breathing above the set ventilator rate. On ECHO: Normal LV size, hyperdynamic contractility with at least mild LVH. No gross RWMAs. RV is small. IVC measured 1.35cm, with no insp collapse. IMPRESSION: 1. S/P unwitnessed OHCA. Unknown down time prior to bystander CPR. I don't know the duration of EMS CPR. 2. It is a virtual certainty that this gentleman has sustained severe brain damage. It is possible even that he has sustained loss of cerebral blood flow (i.e. brain ). 3. At this time, his heart is functioning perfectly normally. I would recommend discontinuing the epinephrine drip, and using just Levophed to maintain his blood pressure. 4. The echo also suggests that he's hypovolemic. [facility] Past Medical History Medical History AIDS Asthma Cocaine use disorder, severe, dependence Depression Hepatitis C HIV (human immunodeficiency virus infection) MDD (major depressive disorder), recurrent episode, severe Opioid dependence Opioid use disorder, severe, in early remission, on maintenance therapy, dependence Polysubstance abuse Schizoaffective disorder Schizoaffective disorder Tardive dyskinesia Social History Social History Household Members: None Household Members Other:: Patient resides in senior living. Housing: Long Term Housing Other:: [facility] Do you presently have visiting nurse or other home services: Yes Unable to assess alcohol history related to: Unknown Alcohol intake: unknown Patient Tobacco Use Status: Refuse Tobacco use screen Tobacco use type: Cigarette Cigarette Packs Per Day: 0.5 Cigarettes Per Day: 10.0 Years Smoked: 40 e-Cigarette/Vaping Use: Former Use Second Hand Smoke Exposure: No Substance Use Type: IV Drugs Advance Directives: Yes Advance Directives on File: Yes Advance Directives Date on File: 01/29/20 service: No Current occupational status: unemployed Sexual orientation: Straight/Heterosexual Meds Allergies Allergy/AdvReac Type Severity Reaction Status Date / Time Onions Allergy Swelling Uncoded 08/20/21 12:02 Active Medications: Current Medications Epinephrine 5 mg/ Dextrose 255 mls @ 0 mls/hr IVCONT .Q0M VICENTE; Protocol Last Admin: 10/07/21 14:07 Dose: 0.2 mcg/kg/min, 36.72 mls/hr Norepinephrine Bitartrate (Levophed) 8 mg in 250 mls @ 0 mls/hr IVCONT .Q0M VICENTE; Protocol Last Admin: 10/07/21 13:14 Dose: 0.08 mcg/kg/min, 9 mls/hr Calcium Gluconate (Calcium Gluconate) 2 gm in 100 mls @ 50 mls/hr IV ONCE ONE Stop: 10/07/21 16:04 Last Admin: 10/07/21 14:20 Dose: 50 mls/hr Sodium Chloride (Ns) 1,000 mls @ 999 mls/hr IV .Q1H1M VICENTE Stop: 10/07/21 16:00 Sodium Chloride (Ns) 1,000 mls @ 999 mls/hr IV .Q1H1M VICENTE Stop: 10/07/21 16:00 Home Medications Medication Instructions Recorded Confirmed Last Taken Type aspirin 81 mg tablet,delayed 1 tab PO DAILY 08/13/21 09/10/21 Unknown History release atorvastatin 20 mg tablet 1 tab PO DAILY 08/13/21 09/10/21 Unknown History folic acid 1 mg tablet 1 tab PO DAILY 08/13/21 09/10/21 Unknown History levothyroxine 50 mcg tablet 1 tab PO QAM 08/13/21 09/10/21 Unknown History multivitamin (One Daily 1 tab PO DAILY 08/13/21 09/10/21 Unknown History Multivitamin tablet) nicotine 21 mg/24 hr daily 21 mg topical DAILY 08/13/21 09/10/21 Unknown History transdermal patch buprenorphine 8 mg-naloxone 2 mg 1 strip sublingual BID 09/10/21 09/10/21 Unkn own History sublingual film (Suboxone) Physical Exam Vital Signs: Vital Signs: Last Vital Signs Temp 93 F L 10/07/21 14:28 Pulse 99 10/07/21 14:28 Resp 19 10/07/21 14:28 BP 100/46 L 10/07/21 14:28 Pulse Ox 100 10/07/21 14:28 O2 Del Method 10/07/21 14:28 FiO2 50 10/07/21 13:40 BMI result Body Mass Index 21.3 Results Labs CBC & Chem 7: 10/07/21 13:32 10/07/21 13:32 Labs: Short CBC 10/07/21 Range/Units 13:32 WBC 4.4 L (4.8-10.8) X10*3/uL Hgb 11.3 L (14.0-18.0) g/dl Hct 36.2 L (42.0-52.0) % Plt Count 96 L D (160-400) X10*3/uL BMP 10/07/21 13:32 Sodium 139 Potassium 5.9 H D Chloride 104 Carbon Dioxide 16 L BUN 16 Creatinine 1.16 Calcium 9.2 D Cardiac Enzymes 10/07/21 10/07/21 Range/Units 13:32 13:32 Total Creatine Kinase 133 Cancelled (38-174) U/L Liver Function 10/07/21 Range/Units 13:32 Total Bilirubin 0.3 (0.0-1.0) mg/dL AST 175 H (5-37) U/L ALT 97 H (0-40) U/L Alkaline Phosphatase 119 H (39-117) U/L Albumin 3.0 L D (3.5-5.0) g/dL
[2021-10-07 15:04] LABS: Bacteria Urine None Seen (None Seen); Hyaline Casts Urine 0-2 /LPF (0-2); Squamous Epithelial Cell Urine 0-2 /HPF (0-2); UACC Culture Trigger YES
[2021-10-07 15:08] LABS: Amphetamine Screen Urine Not Detected (Not Detect); Barbiturates, Urine Not Detected (Not Detect); Benzodiazepines Screen Urine Not Detected (Not Detect); Cannabinoid Screen Urine Not Detected (Not Detect); Cocaine Screen Urine Not Detected (Not Detect); Fentanyl, urine POSITIVE (Not Detect); Opiate Screen Urine POSITIVE (Not Detect); Phencyclidine Screen Urine Not Detected (Not Detect)
[2021-10-07] MEDS: Albuterol Sulfate (0.083%) 2.5 MG/3 ML VIAL.NEB INHALE (15:15)
[2021-10-07 15:28] LABS: COVID-19 Test Negative (Negative); IDNOW Serial# 16C4AD1C
[2021-10-07 15:38] LABS: Reflex Lactate? Lactic Acid Added
--- NOTE | 2021-10-07 15:40 | PC.NURSE ---
Dr. Lemon instructed to titrate norepi 0.05 at a time.
[2021-10-07] MEDS: Pantoprazole Sodium 40 MG/10 ML VIAL IVPUSH (17:56)
[2021-10-07] MEDS: 0.9 % Sodium Chloride 1,000 ML 250 ML IVCONT ×2 (18:00→18:30)
[2021-10-07 18:58] LABS: Venous Blood Gas Refer to POC result
[2021-10-07 19:00] LABS: VBG Base Excess -17.5 mmol/L; VBG HCO3 8 mmol/L (22-26); VBG pCO2 20 mmHg; VBG pO2 204 mmHg
[2021-10-07 19:05] LABS: Hematocrit 39.7 % (42.0-52.0); Hemoglobin 13.2 g/dl (14.0-18.0); Mean Corpuscular HGB Conc 33.2 g/dl (31.0-36.0); Mean Corpuscular Hemoglobin 30.3 pg (27.0-33.0); Mean Corpuscular Volume 91.1 fL (80.0-98.0); Mean Platelet Volume 9.8 fL (9.4-12.4); NRBC Pct Auto 0.5 /100WBC (0.0-0.2); Platelet Count 103 X10*3/uL (160-400); Red Blood Count 4.36 X10*6/uL (4.60-5.80); Red Cell Distribution Width 15.5 % (11.0-16.0); White Blood Count 4.2 X10*3/uL (4.8-10.8)
--- NOTE | 2021-10-07 19:15 | P.HPCC_ITS ---
History of Present Illness Date of Service: 10/07/21 Attending physician on admission: William Alanis Chief Complaint: [id number] cardiac arrest Mr. Shepard is admitted to the ICU this afternoon after [id number] cardiac arrest (OHCA). Briefly, this is a 61 yo male with hx of opiate use disorder with frequent overdoses, depression, asthma, hepatitis C, HIV, schizoaffective disorder.? This afternoon, [place] Unwitnessed arrest, unknown down time.? Bystanders performed CPR.? EMS was called.? First rhythm was asystole.? He was given a total of 4mg IN narcan, 2 epi, bruce airway. ?BS > 100. ?No shocks given. ?ROSC was obtained after unknown duration of CPR.? The patient was BIBA to the ED. On arrival to the ED, blood pressure was 53/26, heart rate 54, O2 sat with ventilation via the Bruce airway 72%, POC 317. ?Temp was 93 degrees.? ETCO2 was 32.? The patient was unresponsive with a Bruce airway in place.? Pupils were fixed and dilated.? There were no spontaneous respirations. The patient was immediately intubated and an external jugular line was placed.? There was blood in the OG tube.? The patient was started on Levophed and epinephrine. Labs in the ED are as below.? The patient was given Protonix and IV fluids. I examined the patient in the ED.? HR 96, SR, BP 99/50, on epi 0.2ug and Levophed 0.08 ug.? Pupils are fixed, about 7mm.? He was completely unresponsive and not breathing above the set ventilator rate.? There was no jugular venous distention. On ECHO:? Normal LV size, hyperdynamic contractility with at least mild LVH.? No gross RWMAs.? RV is small.? IVC measured 1.35cm, with no insp collapse. I viewed the patient's head CT.? It looks to me like there is loss adams-white differentiation.? I discussed the CT scan with the reading radiologist and he concurred. IMPRESSION: 1. S/P unwitnessed OHCA.? Unknown down time prior to bystander CPR.? I don't know the duration of EMS CPR. 2. It is a virtual certainty that this gentleman has sustained severe brain damage.? It is possible even that he has sustained loss of cerebral blood flow (i.e. brain ).? I have recommended a cerebral flow study. 3. At this time, his heart is functioning perfectly normally.? I would recommend discontinuing the epinephrine drip, and using just Levophed to maintain his blood pressure. 4. The echo also suggests that he's hypovolemic. 5. UGI bleed.? Likely stress gastritis.? I?ve written him for Protonix. ADDENDUM after arrival to the ICU about 6pm:? On my exam, the patient is making respiratory efforts, so clearly he has cerebral blood flow, and there is no need for a nuc medicine study.? However, there was an attempt at putting him on PSV and the patient became apneic, so even his respiratory center is not working well.? Otherwise, he has complete loss of brainstem and cortical activity:? He is completely unresponsive to stimuli, has no corneals, dolls? eyes, or gag reflexes. He is putting out blood in his mouth and from the G-tube, and is putting out pink-tinged liquid stool. In view of the above, it is my opinion that the patient?s brain will swell and he will progress to cessation of cerebral blood flow (brain ) within 12-48 hours.? There is no treatment that will alter this outcome.? There is no treatment of any kind that will be salutary for this patient. I spoke with the patient?s sister Tamy, explained the whole situation and what was going on with his brain, and she insisted that we continue life support. Critical care time:? 75+ min. [facility] Past Medical History Medical History AIDS Asthma Cocaine use disorder, severe, dependence Depression Hepatitis C HIV (human immunodeficiency virus infection) MDD (major depressive disorder), recurrent episode, severe Opioid dependence Opioid use disorder, severe, in early remission, on maintenance therapy, dependence Polysubstance abuse Schizoaffective disorder Schizoaffective disorder Tardive dyskinesia Social History Social History Household Members: None Household Members Other:: [facility] resides [place] [facility] Housing: Intermediate Housing Other:: [facility] Home Do you presently have visiting nurse or other home services: Yes Unable to assess alcohol history related to: Unknown Alcohol intake: unknown Patient Tobacco Use Status: Refuse Tobacco use screen Tobacco use type: Cigarette Cigarette Packs Per Day: 0.5 Cigarettes Per Day: 10.0 Years Smoked: 40 e-Cigarette/Vaping Use: Former Use Second Hand Smoke Exposure: No Substance Use Type: IV Drugs Advance Directives: Yes Advance Directives on File: Yes Advance Directives Date on File: 01/29/20 service: No Current occupational status: unemployed Sexual orientation: Straight/Heterosexual Meds Allergies Allergy/AdvReac Type Severity Reaction Status Date / Time Onions Allergy Swelling Uncoded 08/20/21 12:02 Active Medications: Current Medications Epinephrine 5 mg/ Dextrose 255 mls @ 0 mls/hr IVCONT .Q0M VICENTE; Protocol Last Titration: 10/07/21 15:04 Dose: 0 mcg/kg/min, 0 mls/hr Norepinephrine Bitartrate (Levophed) 8 mg in 250 mls @ 0 mls/hr IVCONT .Q0M VICENTE; Protocol Last Titration: 10/07/21 18:00 Dose: 1 mcg/kg/min, 112.5 mls/hr Pantoprazole Sodium (Pantoprazole Sodium 40 Mg/10 Ml Vial) 40 mg IVPUSH BID@0630,1630 VICENTE Last Admin: 10/07/21 17:56 Dose: 40 mg Home Medications Medication Instructions Recorded Confirmed Last Taken Type aspirin 81 mg tablet,delayed 1 tab PO DAILY 08/13/21 09/10/21 Unknown History release atorvastatin 20 mg tablet 1 tab PO DAILY 08/13/21 09/10/21 Unknown History folic acid 1 mg tablet 1 tab PO DAILY 08/13/21 09/10/21 Unknown History levothyroxine 50 mcg tablet 1 tab PO QAM 08/13/21 09/10/21 Unknown History multivitamin (One Daily 1 tab PO DAILY 08/13/21 09/10/21 Unknown History Multivitamin tablet) nicotine 21 mg/24 hr daily 21 mg topical DAILY 08/13/21 09/10/21 Unknown History transdermal patch buprenorphine 8 mg-naloxone 2 mg 1 strip sublingual BID 09/10/21 09/10/21 Unknown History sublingual film (Suboxone) Physical Exam Vital Signs: Vital Signs: Last Vital Signs Temp 94.6 F L 10/07/21 18:00 Pulse 110 H 10/07/21 18:00 Resp 14 10/07/21 18:00 BP 60/29 L 10/07/21 18:00 Pulse Ox 99 10/07/21 18:00 O2 Del Method 10/07/21 18:00 FiO2 21 10/07/21 18:00 BMI result Body Mass Index 21.3 Results Labs CBC and Chem 7: 10/07/21 18:43 10/07/21 18:43 Labs: Laboratory Results - last 24 hr 10/07/21 10/07/21 10/07/21 13:10 13:32 13:32 MCV 95.5 MCH 29.8 MCHC 31.2 RDW 15.6 Plt Count 96 L D MPV 10.4 Immature Gran % (Auto) 3.4 H Neut % (Auto) 39.2 L Lymph % (Auto) 48.1 H [place] % (Auto) 7.0 Eos % (Auto) 1.6 Baso % (Auto) 0.7 Lymph # (Auto) 2.1 [place] # (Auto) 0.3 Eos # (Auto) 0.1 Baso # (Auto) 0.0 Abs Immat Gran (auto) 0.15 H Absolute Neuts (auto) 1.7 L Absolute Nucleated RBC 0.000 Nucleated RBC % (auto) 0.0 Smear Tech's Comments VERIFIED PT INR VBG pH VBG pCO2 VBG pO2 VBG HCO3 VBG O2 Saturation VBG Base Excess Anion Gap 25 H Estim Creat Clear Calc 56.0 Estimated GFR > 60 POC Glucose 317 H Random Glucose 267 H D Lactic Acid Calcium 9.2 D Magnesium 2.5 Total Bilirubin 0.3 AST 175 H ALT 97 H Alkaline Phosphatase 119 H Total Creatine Kinase 133 Total Protein 6.1 L D Albumin 3.0 L D Lipase 55 Urine Color Urine Appearance Urine pH Ur Specific [place] Urine Protein Urine Glucose (UA) Urine Ketones Urine Blood Urine Nitrite Ur Leukocyte Esterase Urine RBC Urine WBC Ur Squamous Epith Cells Urine Bacteria Hyaline Casts Urine Opiates Screen Urine Fentanyl Screen Ur Barbiturates Screen Ur Phencyclidine Scrn Ur Amphetamines Screen U Benzodiazepines Scrn Urine Cocaine Screen U Marijuana (THC) Screen Ethyl Alcohol < 10 COVID-19 (NEETU) COVID-19 Clin Com Blood Type Antibody Screen 10/07/21 10/07/21 10/07/21 13:32 13:32 13:32 MCV MCH MCHC RDW Plt Count MPV Immature Gran % (Auto) Neut % (Auto) Lymph % (Auto) [place] % (Auto) Eos % (Auto) Baso % (Auto) Lymph # (Auto) [place] # (Auto) Eos # (Auto) Baso # (Auto) Abs Immat Gran (auto) Absolute Neuts (auto) Absolute Nucleated RBC Nucleated RBC % (auto) Smear Tech's Comments PT 17.2 H INR 1.5 H VBG pH VBG pCO2 VBG pO2 VBG HCO3 VBG O2 Saturation VBG Base Excess Anion Gap Estim Creat Clear Calc Estimated GFR POC Glucose Random Glucose Lactic Acid 11.5 H* Calcium Magnesium Total Bilirubin AST ALT Alkaline Phosphatase Total Creatine Kinase Cancelled Total Protein Albumin Lipase Urine Color Urine Appearance Urine pH Ur Specific [place] Urine Protein Urine Glucose (UA) Urine Ketones Urine Blood Urine Nitrite Ur Leukocyte Esterase Urine RBC Urine WBC Ur Squamous Epith Cells Urine Bacteria Hyaline Casts Urine Opiates Screen Urine Fentanyl Screen Ur Barbiturates Screen Ur Phencyclidine Scrn Ur Amphetamines Screen U Benzodiazepines Scrn Urine Cocaine Screen U Marijuana (THC) Screen Ethyl Alcohol COVID-19 (NEETU) COVID-19 Clin Com Blood Type Antibody Screen 10/07/21 10/07/21 10/07/21 13:38 14:17 14:41 MCV MCH MCHC RDW Plt Count MPV Immature Gran % (Auto) Neut % (Auto) Lymph % (Auto) [place] % (Auto) Eos % (Auto) Baso % (Auto) Lymph # (Auto) [place] # (Auto) Eos # (Auto) Baso # (Auto) Abs Immat Gran (auto) Absolute Neuts (auto) Absolute Nucleated RBC Nucleated RBC % (auto) Smear Tech's Comments PT INR VBG pH 6.88 L* VBG pCO2 75 VBG pO2 110 VBG HCO3 14 L VBG O2 Saturation 93.0 VBG Base Excess -19.2 Anion Gap Estim Creat Clear Calc Estimated GFR POC Glucose Random Glucose Lactic Acid Calcium Magnesium Total Bilirubin AST ALT Alkaline Phosphatase Total Creatine Kinase Total Protein Albumin Lipase Urine Color Yellow Urine Appearance Clear Urine pH 6.5 Ur Specific [place] 1.020 Urine Protein 30 (1+) H Urine Glucose (UA) Negative Urine Ketones Trace Urine Blood Negative Urine Nitrite Negative Ur Leukocyte Esterase Negative Urine RBC 3-5 H Urine WBC 6-10 H Ur Squamous Epith Cells 0-2 Urine Bacteria None Seen Hyaline Casts 0-2 Urine Opiates Screen Urine Fentanyl Screen Ur Barbiturates Screen Ur Phencyclidine Scrn Ur Amphetamines Screen U Benzodiazepines Scrn Urine Cocaine Screen U Marijuana (THC) Screen Ethyl Alcohol COVID-19 (NEETU) COVID-19 Clin Com Blood Type O Positive Antibody Screen NEGATIVE 10/07/21 10/07/21 10/07/21 14:41 14:43 18:43 MCV 91.1 MCH 30.3 MCHC 33.2 RDW 15.5 Plt Count 103 L MPV 9.8 Immature Gran % (Auto) Neut % (Auto) Lymph % (Auto) [place] % (Auto) Eos % (Auto) Baso % (Auto) Lymph # (Auto) [place] # (Auto) Eos # (Auto) Baso # (Auto) Abs Immat Gran (auto) Absolute Neuts (auto) Absolute Nucleated RBC 0.020 H Nucleated RBC % (auto) 0.5 H Smear Tech's Comments PT INR VBG pH VBG pCO2 VBG pO2 VBG HCO3 VBG O2 Saturation VBG Base Excess Anion Gap Estim Creat Clear Calc Estimated GFR POC Glucose Random Glucose Lactic Acid Calcium Magnesium Total Bilirubin AST ALT Alkaline Phosphatase Total Creatine Kinase Total Protein Albumin Lipase Urine Color Urine Appearance Urine pH Ur Specific [place] Urine Protein Urine Glucose (UA) Urine Ketones Urine Blood Urine Nitrite Ur Leukocyte Esterase Urine RBC Urine WBC Ur Squamous Epith Cells Urine Bacteria Hyaline Casts Urine Opiates Screen POSITIVE H Urine Fentanyl Screen POSITIVE H Ur Barbiturates Screen Not Detected Ur Phencyclidine Scrn Not Detected Ur Amphetamines Screen Not Detected U Benzodiazepines Scrn Not Detected Urine Cocaine Screen Not Detected U Marijuana (THC) Screen Not Detected Ethyl Alcohol COVID-19 (NEETU) Negative COVID-19 Clin Com See Note Blood Type Antibody Screen 10/07/21 18:53 MCV MCH MCHC RDW Plt Count MPV Immature Gran % (Auto) Neut % (Auto) Lymph % (Auto) [place] % (Auto) Eos % (Auto) Baso % (Auto) Lymph # (Auto) [place] # (Auto) Eos # (Auto) Baso # (Auto) Abs Immat Gran (auto) Absolute Neuts (auto) Absolute Nucleated RBC Nucleated RBC % (auto) Smear Tech's Comments PT INR VBG pH 7.20 L* VBG pCO2 20 VBG pO2 204 VBG HCO3 8 L VBG O2 Saturation 99.0 VBG Base Excess -17.5 Anion Gap Estim Creat Clear Calc Estimated GFR POC Glucose Random Glucose Lactic Acid Calcium Magnesium Total Bilirubin AST ALT Alkaline Phosphatase Total Creatine Kinase Total Protein Albumin Lipase Urine Color Urine Appearance Urine pH Ur Specific [place] Urine Protein Urine Glucose (UA) Urine Ketones Urine Blood Urine Nitrite Ur Leukocyte Esterase Urine RBC Urine WBC Ur Squamous Epith Cells Urine Bacteria Hyaline Casts Urine Opiates Screen Urine Fentanyl Screen Ur Barbiturates Screen Ur Phencyclidine Scrn Ur Amphetamines Screen U Benzodiazepines Scrn Urine Cocaine Screen U Marijuana (THC) Screen Ethyl Alcohol COVID-19 (NEETU) COVID-19 Clin Com Blood Type Antibody Screen Imaging Radiologist's Impressions: Impressions Cervical Spine CT 10/07/21 14:19 IMPRESSION: * No intracranial hemorrhage or other acute intracranial pathology compared to 09/30/2021.. * No fracture or malalignment in the cervical spine. Head CT 10/07/21 14:19 IMPRESSION: * No intracranial hemorrhage or other acute intracranial pathology compared to 09/30/2021.. * No fracture or malalignment in the cervical spine. Abdomen/Pelvis CT 10/07/21 14:24 IMPRESSION: Severe calcification of the left anterior descending coronary artery. Fractures of the sternum and bilateral ribs as detailed above, likely related to chest compressions. Bibasilar dependent atelectasis and/or infiltrate. No evidence of pneumothorax or pleural fluid. Poorly circumscribed lytic lesion involving L4. Cannot exclude metastatic disease or myeloma. Multiple, 0.7 cm or less, bilateral nodular lung parenchymal densities. 4.7 cm fusiform infrarenal abdominal aortic aneurysm containing mural thrombus. Additional findings, as above. Chest CT 10/07/21 14:24 IMPRESSION: Severe calcification of the left anterior descending coronary artery. Fractures of the sternum and bilateral ribs as detailed above, likely related to chest compressions. Bibasilar dependent atelectasis and/or infiltrate. No evidence of pneumothorax or pleural fluid. Poorly circumscribed lytic lesion involving L4. Cannot exclude metastatic disease or myeloma. Multiple, 0.7 cm or less, bilateral nodular lung parenchymal densities. 4.7 cm fusiform infrarenal abdominal aortic aneurysm containing mural thrombus. Additional findings, as above. Critical Care Time Critical Care Time (minutes): 90
[2021-10-07 19:18] LABS: Anion Gap 20 (12-20); Blood Urea Nitrogen 25 mg/dL (9-16); Calcium 7.1 mg/dL (8.4-10.2); Carbon Dioxide 9 mmol/L (22-29); Chloride 116 mmol/L (96-108); Creatinine Clr Calc Pharmacy 47.7; Estimated Glomerular Filt Rate 53; Glucose Random 221 mg/dL (60-115); Phosphorus 6.1 mg/dL (2.7-4.5); Potassium 4.6 mmol/L (3.3-5.1); Sodium 140 mmol/L (135-145)
[2021-10-07 20:05] LABS: Cancel Lactic Acid Canceled
[2021-10-07] MEDS: fentaNYL citrate/PF 100 MCG/2 ML VIAL IVPUSH (22:35)
--- NOTE | 2021-10-07 23:06 | PM.CCPN ---
Subjective Subjective Date of Service: 10/07/21 Interval History: At 22:31, I was alerted the patient was decompensated, upon entering the room, the patient appeared to be tachycardic with what looked to be SVT on the monitor 140-150 beats per minute, however the patient had no pulse, his oxygen level dropped to the mid 60s and his blood pressure also continued to go down despite of being on Levophed. Vent settings were changed increasing the FiO2 as well as the rate, given the lack of poles, I did perform a CPR for about less than 1 minute and his heart rate slowly improved, then a palpable pulse was noted at the right radial area and the rhythm then became sinus with rate of 80 beats per minute. No epinephrine was given, the patient is still on Levophed, Bedside echo shows massive dilation of the left ventricle with significant wall motion abnormality throughout the right heart in a concentric way. ?SVC is 1.6 cm Gerardo collapsible with inspiration. I will start the patient on IV fluids. I will discuss with the family the current patient clinical scenario and explained the predicted poor prognosis for this patient. Phone call was made to patient's daughter Tamy Duron at 2305 pm, no answer, voicemail left. 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 I was asked to call back as they will have a family meeting make a decision tonight.? A total of 15 minutes were spent on this 1st phone call. 2345 pm called family back no answer, voice message left. At 23:55, family called back, the healthcare proxy of this patient Tamy and the family they are ok with do not resuscitate order at this point, they will come in the morning for the above-mentioned possible terminal extubation and comfort measures. Jeanine GREEN field pipe lines supervisor here as witness. Total time spent with the patient ?60 minutes Case was discussed in detail with Dr. Alanis. He is aware of all the above as well as the plan of care for this patient. Critical Care Time (minutes): 60 Physical Exam Vital Signs: Vital Signs: Last Vital Signs Temp 98.2 F 10/07/21 22:56 Pulse 79 10/07/21 22:56 Resp 16 10/07/21 22:56 BP 57/15 L 10/07/21 22:56 Pulse Ox 97 10/07/21 22:56 O2 Del Method 10/07/21 22:56 FiO2 21 10/07/21 22:56 BMI result Body Mass Index 21.3 Objective Data Labs CBC & Chem 7: 10/07/21 18:43 10/07/21 18:43 Labs: Laboratory Results - last 24 hr 10/07/21 10/07/21 10/07/21 13:10 13:32 13:32 WBC 4.4 L RBC 3.79 L Hgb 11.3 L Hct 36.2 L MCV 95.5 MCH 29.8 MCHC 31.2 RDW 15.6 Plt Count 96 L D MPV 10.4 Immature Gran % (Auto) 3.4 H Neut % (Auto) 39.2 L Lymph % (Auto) 48.1 H [place] % (Auto) 7.0 Eos % (Auto) 1.6 Baso % (Auto) 0.7 Lymph # (Auto) 2.1 [place] # (Auto) 0.3 Eos # (Auto) 0.1 Baso # (Auto) 0.0 Abs Immat Gran (auto) 0.15 H Absolute Neuts (auto) 1.7 L Absolute Nucleated RBC 0.000 Nucleated RBC % (auto) 0.0 Smear Tech's Comments VERIFIED PT INR VBG pH VBG pCO2 VBG pO2 VBG HCO3 VBG O2 Saturation VBG Base Excess Sodium 139 Potassium 5.9 H D Chloride 104 Carbon Dioxide 16 L Anion Gap 25 H BUN 16 Creatinine 1.16 Estim Creat Clear Calc 56.0 Estimated GFR > 60 POC Glucose 317 H Random Glucose 267 H D Lactic Acid Calcium 9.2 D Phosphorus Magnesium 2.5 Total Bilirubin 0.3 AST 175 H ALT 97 H Alkaline Phosphatase 119 H Total Creatine Kinase 133 Troponin I High Sens Total Protein 6.1 L D Albumin 3.0 L D Lipase 55 Urine Color Urine Appearance Urine pH Ur Specific [place] Urine Protein Urine Glucose (UA) Urine Ketones Urine Blood Urine Nitrite Ur Leukocyte Esterase Urine RBC Urine WBC Ur Squamous Epith Cells Urine Bacteria Hyaline Casts Urine Opiates Screen Urine Fentanyl Screen Ur Barbiturates Screen Ur Phencyclidine Scrn Ur Amphetamines Screen U Benzodiazepines Scrn Urine Cocaine Screen U Marijuana (THC) Screen Ethyl Alcohol < 10 COVID-19 (NEETU) COVID-19 [employer] Com Blood Type Antibody Screen 10/07/21 10/07/21 10/07/21 13:32 13:32 13:32 WBC RBC Hgb Hct MCV MCH MCHC RDW Plt Count MPV Immature Gran % (Auto) Neut % (Auto) Lymph % (Auto) [place] % (Auto) Eos % (Auto) Baso % (Auto) Lymph # (Auto) [place] # (Auto) Eos # (Auto) Baso # (Auto) Abs Immat Gran (auto) Absolute Neuts (auto) Absolute Nucleated RBC Nucleated RBC % (auto) Smear Tech's Comments PT 17.2 H INR 1.5 H VBG pH VBG pCO2 VBG pO2 VBG HCO3 VBG O2 Saturation VBG Base Excess Sodium Potassium Chloride Carbon Dioxide Anion Gap BUN Creatinine Estim Creat Clear Calc Estimated GFR POC Glucose Random Glucose Lactic Acid 11.5 H* Calcium Phosphorus Magnesium Total Bilirubin AST ALT Alkaline Phosphatase Total Creatine Kinase Troponin I High Sens 189.1 H* D Total Protein Albumin Lipase Urine Color Urine Appearance Urine pH Ur Specific [place] Urine Protein Urine Glucose (UA) Urine Ketones Urine Blood Urine Nitrite Ur Leukocyte Esterase Urine RBC Urine WBC Ur Squamous Epith Cells Urine Bacteria Hyaline Casts Urine Opiates Screen Urine Fentanyl Screen Ur Barbiturates Screen Ur Phencyclidine Scrn Ur Amphetamines Screen U Benzodiazepines Scrn Urine Cocaine Screen U Marijuana (THC) Screen Ethyl Alcohol COVID-19 (NEETU) COVID-19 [employer] Com Blood Type Antibody Screen 10/07/21 10/07/21 10/07/21 13:32 13:38 14:17 WBC RBC Hgb Hct MCV MCH MCHC RDW Plt Count MPV Immature Gran % (Auto) Neut % (Auto) Lymph % (Auto) [place] % (Auto) Eos % (Auto) Baso % (Auto) Lymph # (Auto) [place] # (Auto) Eos # (Auto) Baso # (Auto) Abs Immat Gran (auto) Absolute Neuts (auto) Absolute Nucleated RBC Nucleated RBC % (auto) Smear Tech's Comments PT INR VBG pH 6.88 L* VBG pCO2 75 VBG pO2 110 VBG HCO3 14 L VBG O2 Saturation 93.0 VBG Base Excess -19.2 Sodium Potassium Chloride Carbon Dioxide Anion Gap BUN Creatinine Estim Creat Clear Calc Estimated GFR POC Glucose Random Glucose Lactic Acid Calcium Phosphorus Magnesium Total Bilirubin AST ALT Alkaline Phosphatase Total Creatine Kinase Cancelled Troponin I High Sens Total Protein Albumin Lipase Urine Color Urine Appearance Urine pH Ur Specific [place] Urine Protein Urine Glucose (UA) Urine Ketones Urine Blood Urine Nitrite Ur Leukocyte Esterase Urine RBC Urine WBC Ur Squamous Epith Cells Urine Bacteria Hyaline Casts Urine Opiates Screen Urine Fentanyl Screen Ur Barbiturates Screen Ur Phencyclidine Scrn Ur Amphetamines Screen U Benzodiazepines Scrn Urine Cocaine Screen U Marijuana (THC) Screen Ethyl Alcohol COVID-19 (NEETU) COVID-19 Clin Com Blood Type O Positive Antibody Screen NEGATIVE 10/07/21 10/07/21 10/07/21 14:41 14:41 14:43 WBC RBC Hgb Hct MCV MCH MCHC RDW Plt Count MPV Immature Gran % (Auto) Neut % (Auto) Lymph % (Auto) [place] % (Auto) Eos % (Auto) Baso % (Auto) Lymph # (Auto) [place] # (Auto) Eos # (Auto) Baso # (Auto) Abs Immat Gran (auto) Absolute Neuts (auto) Absolute Nucleated RBC Nucleated RBC % (auto) Smear Tech's Comments PT INR VBG pH VBG pCO2 VBG pO2 VBG HCO3 VBG O2 Saturation VBG Base Excess Sodium Potassium Chloride Carbon Dioxide Anion Gap BUN Creatinine Estim Creat Clear Calc Estimated GFR POC Glucose Random Glucose Lactic Acid Calcium Phosphorus Magnesium Total Bilirubin AST ALT Alkaline Phosphatase Total Creatine Kinase Troponin I High Sens Total Protein Albumin Lipase Urine Color Yellow Urine Appearance Clear Urine pH 6.5 Ur Specific [place] 1.020 Urine Protein 30 (1+) H Urine Glucose (UA) Negative Urine Ketones Trace Urine Blood Negative Urine Nitrite Negative Ur Leukocyte Esterase Negative Urine RBC 3-5 H Urine WBC 6-10 H Ur Squamous Epith Cells 0-2 Urine Bacteria None Seen Hyaline Casts 0-2 Urine Opiates Screen POSITIVE H Urine Fentanyl Screen POSITIVE H Ur Barbiturates Screen Not Detected Ur Phencyclidine Scrn Not Detected Ur Amphetamines Screen Not Detected U Benzodiazepines Scrn Not Detected Urine Cocaine Screen Not Detected U Marijuana (THC) Screen Not Detected Ethyl Alcohol COVID-19 (NEETU) Negative COVID-19 Clin Com See Note Blood Type Antibody Screen 10/07/21 10/07/21 10/07/21 18:43 18:43 18:43 WBC RBC Hgb Hct MCV MCH MCHC RDW Plt Count MPV Immature Gran % (Auto) Neut % (Auto) Lymph % (Auto) [place] % (Auto) Eos % (Auto) Baso % (Auto) Lymph # (Auto) [place] # (Auto) Eos # (Auto) Baso # (Auto) Abs Immat Gran (auto) Absolute Neuts (auto) Absolute Nucleated RBC Nucleated RBC % (auto) Smear Tech's Comments PT INR VBG pH VBG pCO2 VBG pO2 VBG HCO3 VBG O2 Saturation VBG Base Excess Sodium 140 Potassium 4.6 D Chloride 116 H Carbon Dioxide 9 L* D Anion Gap 20 BUN 25 H D Creatinine 1.36 Estim Creat Clear Calc 47.7 Estimated GFR 53 POC Glucose Random Glucose 221 H Lactic Acid 6.0 H* Calcium 7.1 L D Phosphorus 6.1 H Magnesium Total Bilirubin AST ALT Alkaline Phosphatase Total Creatine Kinase Troponin I High Sens 06314.2 H* D Total Protein Albumin Lipase Urine Color Urine Appearance Urine pH Ur Specific [place] Urine Protein Urine Glucose (UA) Urine Ketones Urine Blood Urine Nitrite Ur Leukocyte Esterase Urine RBC Urine WBC Ur Squamous Epith Cells Urine Bacteria Hyaline Casts Urine Opiates Screen Urine Fentanyl Screen Ur Barbiturates Screen Ur Phencyclidine Scrn Ur Amphetamines Screen U Benzodiazepines Scrn Urine Cocaine Screen U Marijuana (THC) Screen Ethyl Alcohol COVID-19 (NEETU) COVID-19 Clin Com Blood Type Antibody Screen 10/07/21 10/07/21 18:43 18:53 WBC 4.2 L RBC 4.36 L Hgb 13.2 L Hct 39.7 L MCV 91.1 MCH 30.3 MCHC 33.2 RDW 15.5 Plt Count 103 L MPV 9.8 Immature Gran % (Auto) Neut % (Auto) Lymph % (Auto) [place] % (Auto) Eos % (Auto) Baso % (Auto) Lymph # (Auto) [place] # (Auto) Eos # (Auto) Baso # (Auto) Abs Immat Gran (auto) Absolute Neuts (auto) Absolute Nucleated RBC 0.020 H Nucleated RBC % (auto) 0.5 H Smear Tech's Comments PT INR VBG pH 7.20 L* VBG pCO2 20 VBG pO2 204 VBG HCO3 8 L VBG O2 Saturation 99.0 VBG Base Excess -17.5 Sodium Potassium Chloride Carbon Dioxide Anion Gap BUN Creatinine Estim Creat Clear Calc Estimated GFR POC Glucose Random Glucose Lactic Acid Calcium Phosphorus Magnesium Total Bilirubin AST ALT Alkaline Phosphatase Total Creatine Kinase Troponin I High Sens Total Protein Albumin Lipase Urine Color Urine Appearance Urine pH Ur Specific [place] Urine Protein Urine Glucose (UA) Urine Ketones Urine Blood Urine Nitrite Ur Leukocyte Esterase Urine RBC Urine WBC Ur Squamous Epith Cells Urine Bacteria Hyaline Casts Urine Opiates Screen Urine Fentanyl Screen Ur Barbiturates Screen Ur Phencyclidine Scrn Ur Amphetamines Screen U Benzodiazepines Scrn Urine Cocaine Screen U Marijuana (THC) Screen Ethyl Alcohol COVID-19 (NEETU) COVID-19 Clin Com Blood Type Antibody Screen Quality Stroke Does the patient have a stroke diagnosis?: No VTE Prior VTE?: No VTE Risk Level:: Medical - moderate - high VTE Device Contraindication: N/A - Device Ordered VTE Drug Contraindication: Treatment Not Indicated
[2021-10-08] VITALS (12 sets, daily range): BP systolic 40–85; BP diastolic 16–49; PULSE 47–150; RESP 16; TEMP 35.1–38; O2SAT 99–100; BMI 21.3
--- NOTE | 2021-10-08 00:53 | PC.NURSE ---
At 2230, This RN notified PA that pt was decompensating. Pt was tachycardic, no pulse, and hypotensive (on levophed) and o2 sat dropped to 60.Vent settings changed, cpr performed by by PA, pulse was then felt, HR into 80s, SR. bp trending up, o2 sat into 90s.
[2021-10-08] MEDS: 0.9 % Sodium Chloride 1,000 ML 999 ML IV (01:40)
[2021-10-08] MEDS: 0.9 % Sodium Chloride 1,000 ML 100 ML IVCONT (02:40)
[2021-10-08] MEDS: Pantoprazole Sodium 40 MG/10 ML VIAL IVPUSH (06:53)
--- NOTE | 2021-10-08 10:02 | MHC.CM.PN ---
Pt admitted to ICU after cardiac arrest w/significant down time and irreversible brain injury as a result. 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 Family in to visit - CM to follow for potential needs.
--- NOTE | 2021-10-08 12:27 | P.CDIC_ITS ---
CDI Concurrent Query Documentation Clarification: PHYSICIAN'S DOCUMENTATION REQUEST Date of Query: 10/08/21 1227 Patient Name: Maynor Shepard Admit Date: 10/07/21 Dear Doctor, A review of the medical record indicates additional documentation may be needed. Please review below and update the documentation accordingly. Clinical Indicators: Risk Factors/Clinical Indicators/Treatments Notes 10/07 - increased vent requirements, fluctuating RR 19/8/14/10 and O2 sats & HR 116. Patient became apneic, respiratory center not working well, making respiratory efforts. Recognized standard criteria for respiratory failure includes: (Source: [facility] Hospitalist Dec 2012) ABGs (1 or more) Symptoms: ? PO2 <60 or RA SpO2 <91% ? Tachypnea, SOB, dyspnea ? PcO2 >50 and pH <7.35 ? Pallor or cyanosis ? pO2 decrease or pcO2 increase ? Anxiety or restlessness by 10 mm/Hg from baseline if known ? Use of accessory muscles ? Retractions (grunting in newborns) ? Unable to speak in complete sentences P/F ratio < 300 Supplemental O2 requirement of 40% or more Intubation is not required Clarify which of the following accurately represents the patient's respiratory status: * Acute respiratory failure or other etiology of findings * Other (please specify) * Unable to determine Please include type if known: * Hypoxic * Hypercapnic * Hypoxic and hypercapnic * Unable to determine Use of terms such as suspected, likely, concern for, or probable (associated with a specific diagnosis that is being evaluated, monitored, or treated as if it exists) are acceptable and can be coded in the inpatient setting, when documented at the time of discharge. Thank you, Morena Schreiber [facility], [facility] Extension: [phone] Please use your independent medical judgment in providing your response. THIS QUERY IS PART OF THE PERMANENT MEDICAL RECORD Provider Response: Acute Respiratory Failure
--- NOTE | 2021-10-08 12:29 | PM.CCPN ---
Subjective Subjective Date of Service: 10/08/21 Interval History: Mr. Shepard was admitted to the ICU yesterday afternoon after lla-yb-[id number] cardiac arrest (OHCA). Briefly, this is a 61 yo male with hx of opiate use disorder with frequent overdoses, depression, asthma, hepatitis C, HIV, schizoaffective disorder.? This afternoon, [place].? Unwitnessed arrest, unknown down time.? Bystanders performed CPR.? EMS was called.? First rhythm was asystole.? He was given a total of 4mg IN narcan, 2 epi, tiffanie airway. ?BS > 100. ?No shocks given. ?ROSC was obtained after unknown duration of CPR.? The patient was BIBA to the ED. On arrival to the ED, the patient was hypotensive and bradycardic.? ETCO2 was 32.? The patient was unresponsive and pupils were fixed and dilated.? There were no spontaneous respirations. The patient was immediately intubated, put on pressors, and volume resuscitated.? Echo showed normal left and right ventricular size and function.? The head CT likely showed some loss of adams-white differentiation, suggestive of cerebral edema. The patient was admitted to the ICU, where he was noted to be spontaneously breathing.? We spoke to the family, they wished to continue with life support. Later on last night, the patient's hemodynamics and oxygenation and respiratory status deteriorated.? LOVELY Zheng spoke with the family and they agreed to DNR status.? The patient's hemodynamics further deteriorated this morning.? He went into PEA, then asystole.? Time of was 813.? The family was notified and came in to see him. The ME was notified and accepted the case, #[id number].? Accepting examiner was Vannesa Renteria. Laboratory data:? As noted. IMPRESSION: 1. S/P unwitnessed OHCA.? Unknown down time prior to bystander CPR.? I don't know the duration of EMS CPR. 2. It is a virtual certainty that the patient sustained severe brain damage.? But he did not have brain on arrival to the hospital. 3. The patient was also hypovolemic on arrival. 4. UGI bleed.? Likely stress gastritis. Time:? 30+ min (12912). Critical Care Time (minutes): 0 Physical Exam Vital Signs: Vital Signs: Last Vital Signs Temp 99.0 F 10/08/21 07:00 Pulse 63 10/08/21 07:00 Resp 16 10/08/21 07:00 BP 62/17 L 10/08/21 06:54 Pulse Ox 100 10/08/21 05:00 O2 Del Method 10/08/21 06:00 FiO2 100 10/08/21 08:04 BMI result Body Mass Index 21.3 Objective Data Labs CBC & Chem 7: 10/07/21 18:43 10/07/21 18:43 Labs: Laboratory Results - last 24 hr 10/07/21 10/07/21 10/07/21 13:10 13:32 13:32 WBC 4.4 L RBC 3.79 L Hgb 11.3 L Hct 36.2 L MCV 95.5 MCH 29.8 MCHC 31.2 RDW 15.6 Plt Count 96 L D MPV 10.4 Immature Gran % (Auto) 3.4 H Neut % (Auto) 39.2 L Lymph % (Auto) 48.1 H [place] % (Auto) 7.0 Eos % (Auto) 1.6 Baso % (Auto) 0.7 Lymph # (Auto) 2.1 [place] # (Auto) 0.3 Eos # (Auto) 0.1 Baso # (Auto) 0.0 Abs Immat Gran (auto) 0.15 H Absolute Neuts (auto) 1.7 L Absolute Nucleated RBC 0.000 Nucleated RBC % (auto) 0.0 Smear Tech's Comments VERIFIED PT INR VBG pH VBG pCO2 VBG pO2 VBG HCO3 VBG O2 Saturation VBG Base Excess Sodium 139 Potassium 5.9 H D Chloride 104 Carbon Dioxide 16 L Anion Gap 25 H BUN 16 Creatinine 1.16 Estim Creat Clear Calc 56.0 Estimated GFR > 60 POC Glucose 317 H Random Glucose 267 H D Lactic Acid Calcium 9.2 D Phosphorus Magnesium 2.5 Total Bilirubin 0.3 AST 175 H ALT 97 H Alkaline Phosphatase 119 H Total Creatine Kinase 133 Troponin I High Sens Total Protein 6.1 L D Albumin 3.0 L D Lipase 55 Urine Color Urine Appearance Urine pH Ur Specific Tyler Urine Protein Urine Glucose (UA) Urine Ketones Urine Blood Urine Nitrite Ur Leukocyte Esterase Urine RBC Urine WBC Ur Squamous Epith Cells Urine Bacteria Hyaline Casts Urine Opiates Screen Urine Fentanyl Screen Ur Barbiturates Screen Ur Phencyclidine Scrn Ur Amphetamines Screen U Benzodiazepines Scrn Urine Cocaine Screen U Marijuana (THC) Screen Ethyl Alcohol < 10 COVID-19 (NEETU) COVID-19 LiquidPiston Com Blood Type Antibody Screen 10/07/21 10/07/21 10/07/21 13:32 13:32 13:32 WBC RBC Hgb Hct MCV MCH MCHC RDW Plt Count MPV Immature Gran % (Auto) Neut % (Auto) Lymph % (Auto) [place] % (Auto) Eos % (Auto) Baso % (Auto) Lymph # (Auto) [place] # (Auto) Eos # (Auto) Baso # (Auto) Abs Immat Gran (auto) Absolute Neuts (auto) Absolute Nucleated RBC Nucleated RBC % (auto) Smear Tech's Comments PT 17.2 H INR 1.5 H VBG pH VBG pCO2 VBG pO2 VBG HCO3 VBG O2 Saturation VBG Base Excess Sodium Potassium Chloride Carbon Dioxide Anion Gap BUN Creatinine Estim Creat Clear Calc Estimated GFR POC Glucose Random Glucose Lactic Acid 11.5 H* Calcium Phosphorus Magnesium Total Bilirubin AST ALT Alkaline Phosphatase Total Creatine Kinase Troponin I High Sens 189.1 H* D Total Protein Albumin Lipase Urine Color Urine Appearance Urine pH Ur Specific Tyler Urine Protein Urine Glucose (UA) Urine Ketones Urine Blood Urine Nitrite Ur Leukocyte Esterase Urine RBC Urine WBC Ur Squamous Epith Cells Urine Bacteria Hyaline Casts Urine Opiates Screen Urine Fentanyl Screen Ur Barbiturates Screen Ur Phencyclidine Scrn Ur Amphetamines Screen U Benzodiazepines Scrn Urine Cocaine Screen U Marijuana (THC) Screen Ethyl Alcohol COVID-19 (NEETU) COVID-19 LiquidPiston Com Blood Type Antibody Screen 10/07/21 10/07/21 10/07/21 13:32 13:38 14:17 WBC RBC Hgb Hct MCV MCH MCHC RDW Plt Count MPV Immature Gran % (Auto) Neut % (Auto) Lymph % (Auto) [place] % (Auto) Eos % (Auto) Baso % (Auto) Lymph # (Auto) [place] # (Auto) Eos # (Auto) Baso # (Auto) Abs Immat Gran (auto) Absolute Neuts (auto) Absolute Nucleated RBC Nucleated RBC % (auto) Smear Tech's Comments PT INR VBG pH 6.88 L* VBG pCO2 75 VBG pO2 110 VBG HCO3 14 L VBG O2 Saturation 93.0 VBG Base Excess -19.2 Sodium Potassium Chloride Carbon Dioxide Anion Gap BUN Creatinine Estim Creat Clear Calc Estimated GFR POC Glucose Random Glucose Lactic Acid Calcium Phosphorus Magnesium Total Bilirubin AST ALT Alkaline Phosphatase Total Creatine Kinase Cancelled Troponin I High Sens Total Protein Albumin Lipase Urine Color Urine Appearance Urine pH Ur Specific Tyler Urine Protein Urine Glucose (UA) Urine Ketones Urine Blood Urine Nitrite Ur Leukocyte Esterase Urine RBC Urine WBC Ur Squamous Epith Cells Urine Bacteria Hyaline Casts Urine Opiates Screen Urine Fentanyl Screen Ur Barbiturates Screen Ur Phencyclidine Scrn Ur Amphetamines Screen U Benzodiazepines Scrn Urine Cocaine Screen U Marijuana (THC) Screen Ethyl Alcohol COVID-19 (NEETU) COVID-19 Clin Com Blood Type O Positive Antibody Screen NEGATIVE 10/07/21 10/07/21 10/07/21 14:41 14:41 14:43 WBC RBC Hgb Hct MCV MCH MCHC RDW Plt Count MPV Immature Gran % (Auto) Neut % (Auto) Lymph % (Auto) [place] % (Auto) Eos % (Auto) Baso % (Auto) Lymph # (Auto) [place] # (Auto) Eos # (Auto) Baso # (Auto) Abs Immat Gran (auto) Absolute Neuts (auto) Absolute Nucleated RBC Nucleated RBC % (auto) Smear Tech's Comments PT INR VBG pH VBG pCO2 VBG pO2 VBG HCO3 VBG O2 Saturation VBG Base Excess Sodium Potassium Chloride Carbon Dioxide Anion Gap BUN Creatinine Estim Creat Clear Calc Estimated GFR POC Glucose Random Glucose Lactic Acid Calcium Phosphorus Magnesium Total Bilirubin AST ALT Alkaline Phosphatase Total Creatine Kinase Troponin I High Sens Total Protein Albumin Lipase Urine Color Yellow Urine Appearance Clear Urine pH 6.5 Ur Specific [place] 1.020 Urine Protein 30 (1+) H Urine Glucose (UA) Negative Urine Ketones Trace Urine Blood Negative Urine Nitrite Negative Ur Leukocyte Esterase Negative Urine RBC 3-5 H Urine WBC 6-10 H Ur Squamous Epith Cells 0-2 Urine Bacteria None Seen Hyaline Casts 0-2 Urine Opiates Screen POSITIVE H Urine Fentanyl Screen POSITIVE H Ur Barbiturates Screen Not Detected Ur Phencyclidine Scrn Not Detected Ur Amphetamines Screen Not Detected U Benzodiazepines Scrn Not Detected Urine Cocaine Screen Not Detected U Marijuana (THC) Screen Not Detected Ethyl Alcohol COVID-19 (NEETU) Negative COVID-19 Clin Com See Note Blood Type Antibody Screen 10/07/21 10/07/21 10/07/21 18:43 18:43 18:43 WBC RBC Hgb Hct MCV MCH MCHC RDW Plt Count MPV Immature Gran % (Auto) Neut % (Auto) Lymph % (Auto) [place] % (Auto) Eos % (Auto) Baso % (Auto) Lymph # (Auto) [place] # (Auto) Eos # (Auto) Baso # (Auto) Abs Immat Gran (auto) Absolute Neuts (auto) Absolute Nucleated RBC Nucleated RBC % (auto) Smear Tech's Comments PT INR VBG pH VBG pCO2 VBG pO2 VBG HCO3 VBG O2 Saturation VBG Base Excess Sodium 140 Potassium 4.6 D Chloride 116 H Carbon Dioxide 9 L* D Anion Gap 20 BUN 25 H D Creatinine 1.36 Estim Creat Clear Calc 47.7 Estimated GFR 53 POC Glucose Random Glucose 221 H Lactic Acid 6.0 H* Calcium 7.1 L D Phosphorus 6.1 H Magnesium Total Bilirubin AST ALT Alkaline Phosphatase Total Creatine Kinase Troponin I High Sens 32304.2 H* D Total Protein Albumin Lipase Urine Color Urine Appearance Urine pH Ur Specific [place] Urine Protein Urine Glucose (UA) Urine Ketones Urine Blood Urine Nitrite Ur Leukocyte Esterase Urine RBC Urine WBC Ur Squamous Epith Cells Urine Bacteria Hyaline Casts Urine Opiates Screen Urine Fentanyl Screen Ur Barbiturates Screen Ur Phencyclidine Scrn Ur Amphetamines Screen U Benzodiazepines Scrn Urine Cocaine Screen U Marijuana (THC) Screen Ethyl Alcohol COVID-19 (NEETU) COVID-19 Clin Com Blood Type Antibody Screen 10/07/21 10/07/21 18:43 18:53 WBC 4.2 L RBC 4.36 L Hgb 13.2 L Hct 39.7 L MCV 91.1 MCH 30.3 MCHC 33.2 RDW 15.5 Plt Count 103 L MPV 9.8 Immature Gran % (Auto) Neut % (Auto) Lymph % (Auto) [place] % (Auto) Eos % (Auto) Baso % (Auto) Lymph # (Auto) [place] # (Auto) Eos # (Auto) Baso # (Auto) Abs Immat Gran (auto) Absolute Neuts (auto) Absolute Nucleated RBC 0.020 H Nucleated RBC % (auto) 0.5 H Smear Tech's Comments PT INR VBG pH 7.20 L* VBG pCO2 20 VBG pO2 204 VBG HCO3 8 L VBG O2 Saturation 99.0 VBG Base Excess -17.5 Sodium Potassium Chloride Carbon Dioxide Anion Gap BUN Creatinine Estim Creat Clear Calc Estimated GFR POC Glucose Random Glucose Lactic Acid Calcium Phosphorus Magnesium Total Bilirubin AST ALT Alkaline Phosphatase Total Creatine Kinase Troponin I High Sens Total Protein Albumin Lipase Urine Color Urine Appearance Urine pH Ur Specific [place] Urine Protein Urine Glucose (UA) Urine Ketones Urine Blood Urine Nitrite Ur Leukocyte Esterase Urine RBC Urine WBC Ur Squamous Epith Cells Urine Bacteria Hyaline Casts Urine Opiates Screen Urine Fentanyl Screen Ur Barbiturates Screen Ur Phencyclidine Scrn Ur Amphetamines Screen U Benzodiazepines Scrn Urine Cocaine Screen U Marijuana (THC) Screen Ethyl Alcohol COVID-19 (NEETU) COVID-19 Clin Com Blood Type Antibody Screen Quality Stroke Does the patient have a stroke diagnosis?: No VTE Prior VTE?: No VTE Risk Level:: Medical - moderate - high VTE Device Contraindication: N/A - Device Ordered VTE Drug Contraindication: Treatment Not Indicated
--- NOTE | 2021-10-08 16:05 | PC.NURSE ---
Assumed care at 03:00. Patient was off all sedation. Was completely nonresponsive to pain or other stimuli. Pupils fixed at 4 mm. Patient with no cough or gag. Patient not overbreathing the ventilator. PA and MD aware. Patient with very low blood pressures, 81/47, down to 53/18 MAP 26; 48/16 MAP 22, Levophed running at 1 mcg/kg/min and NS at 100 cc/hour, and discussed with PA and patient is DNR and not escalating care. Patient on ventilator with #7.5 ETT 23 cm GOVIND, AC/PC Rt 16; P 10; PEEP 5; FiO2 100%; EtCO2 27; minute volume 4.9. SpO2 was initially in the mid 90's, but was early on unable to get an SpO2 reading via forehead or finger probe. Patient was continuing to have dark red blood oral secretions in oral care and was also having did then leak dark red blood through his OGT and was placed to low intermittent suction, with 200 ccs of dark red blood from OGT, and PA and MD notified. From early on, patient only had doppler femoral pulses and brachial pulses, and had palpable carotid pulses, but had absent radials, ulnars, DP, and PT pulses. Telemetry was initially in a sinus tacycardia 130, then changed to afib with rate 129, and then slowed gradually to a rate in the 50's. Patient lost pulse and had PEA at 0811, and asystole at 0814. notified and in to assess. Call was placed to [facility] and patient was declined for all donation after discussion with Slick, Call ID #[phone]
--- NOTE | 2021-10-08 23:41 | PM.DS ---
DS: Providers Provider Date of Service: 10/08/21 Date of admission: 10/07/21 15:31 Date of discharge: 10/08/21 Primary care physician: [facility] Admitting clinician: William Alanis Attending physician on admission: William Alanis Attending physician on discharge: William Alanis Discharging clinician: Henry Zheng DS: Summary Hospital Course Hospital Course: ADMISSION/DISCHARGE DIAGNOSIS 1. ANOXIC BRAIN INJURY 2. OPIATE OVERDOSE 3. ACUTE RESPIRATORY FAILURE WITH HYPOXIC STATE 4. CARDIOGENIC SHOCK 5. STATUS POST UNWITNESSED OH CA 6. HYPOXIC BRAIN INJURY 7. UPPER GI BLEED 8. PEA HPI/HOSPITAL COURSE: Mr. Shepard was admitted to the ICU yesterday afternoon after [id number] cardiac arrest (OHCA). Briefly, this is a 61 yo male with hx of opiate use disorder with frequent overdoses, depression, asthma, hepatitis C, HIV, schizoaffective disorder.? This [place], [place] Unwitnessed arrest, unknown down time.? Bystanders performed CPR.? EMS was called.? First rhythm was asystole.? He was given a total of 4mg IN narcan, 2 epi, tiffanie airway. ?BS > 100. ?No shocks given. ?ROSC was obtained after unknown duration of CPR.? The patient was BIBA to the ED. On arrival to the ED, the patient was hypotensive and bradycardic.? ETCO2 was 32.? The patient was unresponsive and pupils were fixed and dilated.? There were no spontaneous respirations. The patient was immediately intubated, put on pressors, and volume resuscitated.? Echo showed normal left and right ventricular size and function.? The head CT likely showed some loss of adams-white differentiation, suggestive of cerebral edema. The patient was admitted to the ICU, where he was noted to be spontaneously breathing.? We spoke to the family, they wished to continue with life support. Later on last night, the patient's hemodynamics and oxygenation and respiratory status deteriorated.? After a discussion with the family the patient was made DNR DNI with hopes that they can come in the morning to talk to a provider and perhaps make him comfortable and proceed with terminal extubation; however it was reported to Dr. Alanis. ?that the patient's hemodynamics further deteriorated this morning.? He went into PEA, then asystole.? Time of was 813.? The family had been notified and had come in to see him. The ME was notified and accepted the case, #[id number].? Accepting examiner was Vannesa Renteria. Time Spent with Patient Time attestation: Total time spent providing and/or coordinating discharge services: Discharge coordination time: Greater than 30 minutes Quality: Safe Use of Opioids Does Pt have an Active Cancer Diagnosis on the Problem List?: No Quality: Stroke Does the patient have a stroke diagnosis?: No Physical Exam Vital Signs: Vital Signs: Last Vital Signs Temp 99.0 F 10/08/21 07:00 Pulse 63 10/08/21 07:00 Resp 16 10/08/21 07:00 BP 62/17 L 10/08/21 06:54 Pulse Ox 100 10/08/21 05:00 O2 Del Method 10/08/21 06:00 FiO2 100 10/08/21 08:04 BMI result Body Mass Index 21.3 DS: Data Data Completed and Pending Labs on day of discharge: Preliminary micro results at discharge 10/07/21 13:32 Blood Culture - Preliminary Blood - Venous No growth after 24 hours. 10/07/21 13:32 Blood Culture - Preliminary Blood - Venous No growth after 24 hours. Discharge Plan Discharge Date/Time: 10/08/21 08:14 Patient Disposition: Discharge Diagnosis: out of hospital cardiac arrest Referrals: [facility] [Primary Care Provider] - 1 Week Discharge Medications: No Action multivitamin [One Daily Multivitamin] Tablet 1 tab PO DAILY atorvastatin 20 mg tablet 1 tab PO DAILY aspirin 81 mg tablet,delayed release (DR/EC) 1 tab PO DAILY levothyroxine 50 mcg tablet 1 tab PO QAM nicotine 21 mg/24 hr patch 24 hour 21 mg topical DAILY folic acid 1 mg tablet 1 tab PO DAILY naloxone [Narcan] 4 mg/actuation spray,non-aerosol 4 mg intranasal Q2M PRN (Reason: opioid overdose) Qty: 2 0RF Rx Instructions: spray 1 dose into ONE nostril; alternate nostrils w each dose until help arrives buprenorphine-naloxone [Suboxone] 8-2 mg film 1 strip sublingual BID Discharge Orders: Discharge Order (Routine); Ordered 10/08/21 Ordered By: Henry Zheng Discharge Date/Time: 10/08/21 08:14
--- NOTE | 2021-10-09 08:52 | P.CDIR_ITS ---
Documented by User: Morena Schreiber CCS, CDIS 10/09/21 09:06 Retrospective Query PHYSICIAN'S DOCUMENTATION REQUEST Date of Query: 10/09/21 0853 Patient Name: Maynor Shepard Admit Date: 10/07/21 Dear Doctor, A review of the medical record indicates additional documentation may be needed. Please review below and update the documentation accordingly. Clinical Indicators: Risk Factors/Clinical Indicators/Treatments Multiple admits to ED for overdoses/found down and unresponsive. Platletes 96 L HGB 11.3 WBC 4.2 RBC 3.79 Positive Opiates, Fentanyl Based on the above, could you clarify in the Progress Notes the appropriate diagnosis, if significant, that supports the above abnormalities and additional evaluation, monitoring, and/or treatment rendered: * Pancytopenia due to drug use or other etiology * Labs indicate a diagnosis of (please specify) * Other (please specify) * Unable to determine Use of terms such as suspected, likely, concern for, or probable (associated with a specific diagnosis that is being evaluated, monitored, or treated as if it exists) are acceptable and can be coded in the inpatient setting, when documented at the time of discharge. Thank you, Morena Schreiber CCS, CDIS Extension: [phone] Please use your independent medical judgment in providing your response. THIS QUERY IS PART OF THE PERMANENT MEDICAL RECORD Documented by User: William Alanis MD 10/26/21 10:09 Retrospective Query Provider Response: Other (Pancytopenia -- Unable to determine the cause.)
== END 2021-10-08 08:14 | disposition expired | DRG 812 ==
LOC: HO.ED 13:35 → HO.EDOVER 15:48 → HO.ICU 16:08
PROVIDERS: Nurse Practitioner Family; Admitting Provider Anesthesiology; Emergency Provider Emergency Medicine; Visit Provider Anesthesiology
DX: T40.411A Poisoning by fentanyl or fentanyl analogs, accidental (unintentional), initial encounter (principal); J96.01 Acute respiratory failure with hypoxia; G93.6 Cerebral edema; R57.0 Cardiogenic shock; D61.818 Other pancytopenia; I47.1 Supraventricular tachycardia; K92.2 Gastrointestinal hemorrhage, unspecified; F25.9 Schizoaffective disorder, unspecified; G93.1 Anoxic brain damage, not elsewhere classified; F33.9 Major depressive disorder, recurrent, unspecified; Z86.74 Personal history of sudden cardiac arrest; Z66 Do not resuscitate; I46.9 Cardiac arrest, cause unspecified; F11.20 Opioid dependence, uncomplicated; Z21 Asymptomatic human immunodeficiency virus [HIV] infection status; Z86.19 Personal history of other infectious and parasitic diseases; Z20.822 Contact with and (suspected) exposure to COVID-19; Z79.82 Long term (current) use of aspirin; Z79.890 Hormone replacement therapy; Z79.899 Other long term (current) drug therapy
CPT/HCPCS: 36415; 70450; 71250; 72125; 74176; 80048; 80053; 80307; 81001; 82077; 82550; 82803; 82947; 83605; 83690; 83735; 84100; 84484; 85025; 85027; 85610; 86850; 86900; 86901; 87040; 87086; 87205; 87635; 93005; 94002; 94003; 94640; 99285; C1758; J0171; J0610; J3010